=== PATIENT | male | born 1940 | race Hispanic/Latino ===

== ENCOUNTER 2018-08-31 18:25 | Inpatient (IN) | payer MEDICARE ==
[~2018-08-31] VITALS: Ht 165.1 cm; Wt 82.6 kg
[~2018-08-31 18:25] MED LIST: ALENDRONATE SOD70 MG PO; AMERIGEL WOUN28.3 GM; ASPIRIN81 MG PO; BACTRIM DS TAB1 EACH PO; CEFEPIME HCL1 GM; COZAAR25 MG PO; CYCLOSPORINE25 MG PO; FAMOTIDINE20 MG PO; LANTUS 3ML100 UNITS/ SQ; LEVEMIR100 UNIT/1; LOSARTAN POTASS25 MG PO; METOPROLOL SUCC50 MG PO; NIFEDIPINE20 MG PO; NOVOLOG100 UNIT/1; OMEGA-31000 MG; OMEGA-31000 MG PO; PERCOCET 5-3251 EACH PO; PRAVASTATIN SOD10 MG PO; PREDNISONE5 MG PO; RAPAMUNE1 MG PO; SMZ-TMP PO; TORSEMIDE10 MG PO; TUMS300 MG PO; VANCOMYCIN HCL1 GM; VITAMIN D31000 UNI1 PO
[2018-08-31 20:32] LABS: BASOPHILS % 0.2 % (0.0-1.0); EOSINOPHILS % 0.5 % (0.0-6.0); HEMOGLOBIN 14.5 g/dL (14.0-18.0); LYMPHOCYTES # (AUTO) 0.9 (1.0-3.2); LYMPHOCYTES % 10.7 % (18.0-39.1); MEAN CORPUSCULAR HEMOGLOBIN 28.4 pg (28-32); MEAN CORPUSCULAR HGB CONC 34.5 g/dL (31-35); MEAN CORPUSCULAR VOLUME 82.2 fL (81-99); MONOCYTES # (AUTO) 0.8 (0.2-0.8); MONOCYTES % 9.3 % (4.4-11.3); NEUTROPHILS # (AUTO) 6.7 (2.1-6.9); NEUTROPHILS % 78.8 % (38.7-80.0); PLATELET COUNT 174 x10e3/uL (140-360); RED BLOOD COUNT 5.11 x10e6/uL (4.3-5.7); RED CELL DISTRIBUTION WIDTH 12.4 % (11.7-14.4)
[2018-08-31 20:44] LABS: INR 0.91; PROTHROMBIN TIME 13.1 seconds (11.9-14.5)
[2018-08-31 20:45] LABS: PARTIAL THROMBOPLASTIN TIME 39.5 seconds (23.8-35.5)
[2018-08-31 20:53] LABS: ALBUMIN 3.5 g/dL (3.5-5.0); ALBUMIN/GLOBULIN RATIO 0.9 (0.8-2.0); ANION GAP 10.1 mmol/L (8-16); CALCIUM 9.8 mg/dL (8.4-10.2); CREATININE, SERUM 1.61 mg/dL (0.72-1.25); POTASSIUM 4.1 mmol/L (3.5-5.1)
--- NOTE | 2018-08-31 21:20 | NUR ---
PT TOOK SCHEDULED HOME MEDICATIONS WITHOUT PRIOR APPROVAL FROM MD. PT TOOK 15UNITS SC OF LEVEMIR, 1 TAB 100MG METOPROLOL, 1 TAB 20MG PRAVASTATIN, 1 TAB 25MG CYCLOSPORINE, 1 TAB 400MG-80MG BACTRIM. AWARE.
[2018-08-31] MEDS ORDERED: MORPHINE SULFATE 2 MG/ML SYR 1ML IV PRN (21:45)
[2018-08-31] MEDS ORDERED: VANCOMYCIN 500MG/NS 0.9% 100ML 100 ML IV SCH (21:45)
[2018-08-31] MEDS ORDERED: DEXTROSE 50% SYRINGE 50 ML IV PRN (21:45)
[2018-08-31] MEDS ORDERED: SODIUM CHLORIDE FLUSH 10 ML SYR INJ PRN (21:45)
[2018-08-31] MEDS ORDERED: ONDANSETRON HCL INJ 2MG/ML 2ML 2 MG/ML VIAL IV PRN (21:45)
[2018-08-31] MEDS: PIPERACILLIN/TAZO 2.25 GM 50 ML IV SCH (22:45)
--- NOTE | 2018-08-31 23:55 | NUR ---
Patient arrived to the unit from ED via wheelchair. Patient new admit with diagnosis of Cellulitis of right foot and PAD. Patient alert and oriented x3 and speaks mainly Welsh language but understand little bengali language. Patient on bed rest for now. Urinal available at bedside. Patient c/o pain of right foot and will be medicated shortly and to be given IV antibiotic. Call cordero within reach.
[2018-09-01] VITALS (8 sets, daily range): BP systolic 120–156; BP diastolic 57–69
--- NOTE | 2018-09-01 | NUR ---
Telfa placed in between 3rd and 4th right toes then whole right foot wrapped with kerlix.
[2018-09-01] MEDS ORDERED: SODIUM CHLORIDE 0.9% 250ML 250 ML ONE (00:10)
[2018-09-01] MEDS: MORPHINE SULFATE INJ 4 MG/ML INJ 1ML IV PRN ×2 (00:15→11:55)
[2018-09-01 05:44] LABS: BASOPHILS % 0.5 % (0.0-1.0); EOSINOPHILS # (AUTO) 0.1 (0.0-0.4); EOSINOPHILS % 0.8 % (0.0-6.0); HEMATOCRIT 40.1 % (38.2-49.6); HEMOGLOBIN 13.3 g/dL (14.0-18.0); LYMPHOCYTES # (AUTO) 0.9 (1.0-3.2); LYMPHOCYTES % 15.2 % (18.0-39.1); MEAN CORPUSCULAR HEMOGLOBIN 27.9 pg (28-32); MEAN CORPUSCULAR HGB CONC 33.2 g/dL (31-35); MEAN CORPUSCULAR VOLUME 84.2 fL (81-99); MONOCYTES # (AUTO) 0.8 (0.2-0.8); NEUTROPHILS # (AUTO) 4.3 (2.1-6.9); NEUTROPHILS % 70.2 % (38.7-80.0); PLATELET COUNT 165 x10e3/uL (140-360); RED BLOOD COUNT 4.76 x10e6/uL (4.3-5.7); RED CELL DISTRIBUTION WIDTH 12.3 % (11.7-14.4)
[2018-09-01 06:03] LABS: ALBUMIN/GLOBULIN RATIO 0.8 (0.8-2.0); CALCIUM 9.4 mg/dL (8.4-10.2); CREATININE, SERUM 1.3 mg/dL (0.72-1.25)
[2018-09-01] MEDS: PIPERACILLIN/TAZO 2.25 GM 50 ML IV SCH ×3 (06:15→21:43)
--- NOTE | 2018-09-01 06:50 | NUR ---
bedside report received at this time, patient alert and oriented and in no distress. Call cordero within reach and bed in lowest position.
[2018-09-01] MEDS: INSULIN REGULAR, HUMAN 100 UNIT/1 ML 3ML VIAL SQ SCH ×4 (07:30→21:45)
--- NOTE | 2018-09-01 09:15 | NUR ---
dressing applied to right foot per , betadine wet to dry with light dressing. Patient tolerated well Addendum: 09/01/18 at 1115 by Mari Modi RN wrong patient Addendum: 09/01/18 at 1117 by Mari Modi RN *wrong patient amendment is wrong, the note is correct for this entry
--- NOTE | 2018-09-01 09:28 | NUR ---
CM SPOKE TO PATIENT AT BEDSIDE USING LANGUAGE LINE REGARDING IMM LETTER. IMM LETTER GIVEN WITH EXPLANATION BASED ON ANTICIPATED DISCHARGE DATE WITHIN 48 HOURS. ORIGINAL SIGNED BY PATIENT. COPY OF ORIGINAL PLACED IN CHART; COPY OF ORIGINAL DOCUMENT GIVEN TO PATIENT AT BEDSIDE AND PLACED IN CARE TRANSITION FOLDER. CM CONTACT INFORMATION GIVEN TO PATIENT FOR ANY NEEDS OR CONCERNS. PATIENT WITH NO FURTHER QUESTIONS.
--- NOTE | 2018-09-01 09:59 | Consultation ---
DATE OF CONSULTATION: September 01, 2018 REASON FOR CONSULTATION: Pregangrenous changes noted to the third and fourth digits, right foot with a grade 2 ulceration, third toe, left and a grade 3 to 4 ulceration to the fourth digit, right foot. HISTORY OF PRESENT ILLNESS: This is a pleasant 78-year-old male who was seen at the office several weeks ago and his toe started turning worse to a point where it started getting pregangrenous and developed ulcerations to the third digit of the right foot on last visit. Ulcerations were debrided. Secondary to his poor circulatory status and worsening of the third and fourth digits, right foot, it was decided patient to be sent to the emergency room for IV antibiotics and vascular workup to see if anything vascular-hopkins could be done before any definitive surgical procedure will be done. Patient is denying any history of fever, chills, nausea or vomiting. PAST MEDICAL HISTORY: Remarkable for diabetes times 40+ years with insulin-dependent times 20, hypertension, hypercholesterolemia. PAST SURGICAL HISTORY: Remarkable for kidney transplantation, angioplasties to both lower extremities back in 2016 or 2017 according to the patient with a left TMA, prostate surgery, and cataract surgery. ALLERGIES: PATIENT DENIES. CURRENT MEDICATIONS: Include IV Zosyn and vancomycin. SOCIAL HISTORY: Denies any smoking, drinking, or recreational drug use. FAMILY HISTORY: Remarkable for diabetes. REVIEW OF SYSTEMS: CARDIAC: Denies any palpitations or arrhythmias. RESPIRATORY: Denies any shortness of breath, productive cough. GASTROINTESTINAL: Denies any diarrhea or constipation. GENITOURINARY: Denies any hematuria or problems voiding. VITAL SIGNS: Afebrile, pulse rate 78, respiration 19, blood pressure 134/63, O2 saturation 91%. LABS: Showed a white blood cell count of 6.17, hemoglobin 13.3, hematocrit 40.1 with a platelet count of 165,000. Has a blood glucose of 189. PODIATRIC PHYSICAL EXAMINATION: Reveals the following: VASCULATURE: Pedal pulses of both the DP and PT are barely to nonpalpable. Skin temperature between warm and cool to touch. NEUROLOGICAL: Reveals a loss of protective sensation when utilizing Sterling-Cy 5.07 monofilament wire. MUSCULOSKELETAL: Muscle mass is symmetrical. Muscle strength is 4/5 to all muscle groups. DERMATOLOGICAL: Reveals a grade 2 ulceration to the lateral aspect of third digit, left foot measuring 1 cm in diameter. Has a grade 3 ulceration, medial aspect, fourth digit, right foot possibly down to bone with pregangrenous changes noted to the third and fourth digits with the fourth digit being a little worse. The distal aspect of the toe shows some viability. ASSESSMENT: 1. Peripheral arterial disease. 2. Pre-gangrene. 3. Grade 3 ulcer, right; grade 2 ulcer, third digit, left. PLAN: Will continue IV antibiotics. Will start one gauze in between the third and fourth digits with diluted wet-to-dry Betadine. Will await Dr. Rudd evaluation for possible vascular intervention. Continue offloading. Patient understands if not responsive to conservative treatment, will need some type of amputation level to be determined after vascular evaluation is done. Job#: [id number]
--- NOTE | 2018-09-01 11:10 | NUR ---
WOUND CARE CONSULTATION - INITIAL EVALUATION Patient admitted to ER from Home for Cellulitis of Right Foot and 4th Toe. DX: PAD, DFU with Cellulitis of Right Foot and 4th Toe HX: DM type2, HTN, hypercholesterolemia, kidney transplantation, angioplasty , Left TMA, prostate surgery, and cataract surgery LABS: WBC 6.17 HGB13.3 HCT40.1 ALB3.1 - BLE Arterial Doppler Done - Multisegmental Occlusions to below knee bilaterally. - Patient is well known to Dr. Patt Mcmahon following at his office and is on case for inpatient care. - Dr Longo- to evaluate for possible vascular intervention. - Pt on IV ABX. - Non palpable pedal pulses BLE. - Per Salome Goss - will need some type of amputation level to be determined after vascular evaluation is done. IMPRESSION: Ischemic Right Foot 3rd and 4th toes. RECOMMENDATION: Continue treatment plan as prescribed by Gage Gossge: 1. Between the third and fourth digits: - Single gauze with diluted wet-to-dry Betadine then wrap with Light Kerlix and Secure with Tape. 2. Continue offloading RLE. Thank you for consulting with Wound Care. Addendum: 09/01/18 at 1128 by Evangelista Dunn RN Amended: Links added. Addendum: 09/01/18 at 1132 by Evangelista Dunn RN Eduardo score 20 Conservative PUP Active. Visco Mattress in place
[2018-09-01] MEDS: VANCOMYCIN 500MG/NS 0.9% 100ML 100 ML IV SCH (11:55)
[2018-09-01] MEDS: PREDNISONE 5 MG TAB PO SCH (14:30)
[2018-09-01] MEDS: CYCLOSPORINE 25 MG CAP PO SCH (14:30)
--- NOTE | 2018-09-01 16:28 | NUR ---
CASE MANAGEMENT INITIAL ASSESSMENT Maintenance Repairer to bedside to discuss plan of care with patient/family. CM/SW role and care transitions discussed. Anticipated discharge plan discussed along with duration of care. CM/SW discussed patients right to make decisions in care. CM/SW work hours given. Patient lives: W Admit/Transfer: ER Hospital/ER visits since last admit: NONE POA/Emergency contact: DYLAN / @ [phone] Current/Previous Home Health: NONE PCP/Follow-up Care: DR RILEY CRONIN Current/Previous DME: Other Services: [facility] Employment Status: RETIRED Areas of Concerns: NONE Referral Needs: CONTINUED WOUND CARE Education Needs: NONE IMM/CONNELL given and signed (if applicable): GIVEN AT ADMISSION Goal for discharge: DC HOME SAFELY CM/SW left business card at the bedside with contact information. Name and number was also written on the patients whiteboard. Patient verbalized understanding of discussion. CM will follow-up with ongoing discharge and transition of care needs.
--- NOTE | 2018-09-01 17:02 | Diagnostic Imaging Report ---
Examination: Single AP view of the chest. COMPARISON: November 24, 2015 INDICATION: Low oxygen saturation DISCUSSION: Lines/tubes: None. Lungs: Left lung airspace opacity. Pleura: Small left effusion. Heart and mediastinum: Prominent heart size. Bones and soft tissues: No acute bony abnormalities. IMPRESSION: 1. Small left effusion and airspace opacity, likely atelectasis. Signed by: Dr. John Avery M.D. on 09/01/2018 4:58 PM
[2018-09-01] MEDS: OMEGA 3 POLYUNSAT FATTY ACIDS 1000 MG SOFTGEL PO SCH (17:10)
[2018-09-01] MEDS: METOPROLOL SUCCINATE 50 MG TAB XL PO SCH (17:10)
--- NOTE | 2018-09-01 19:00 | NUR ---
report given to worship pastor nurse, patient alert and oriented. Call cordero within reach
--- NOTE | 2018-09-01 19:05 | NUR ---
Patient visited in room during nursing rounds. Patient alert and oriented x3. Estonian speaking only. Family at bedside visiting. Right 4th toe covered with wet-to-dry betadine soaked gauze and wrapped with kerlix and tape (as ordered by Dr. Beltre). Patient denies any pain or discomfort at this time. Call cordero within reach. Will monitor patient closely.
[2018-09-01] MEDS: PRAVASTATIN 20 MG TAB PO SCH (21:43)
[2018-09-02] VITALS (8 sets, daily range): BP systolic 113–142; BP diastolic 57–69
[2018-09-02] MEDS: VANCOMYCIN 500MG/NS 0.9% 100ML 100 ML IV SCH ×3 (00:45→23:56)
[2018-09-02] MEDS: PIPERACILLIN/TAZO 2.25 GM 50 ML IV SCH ×3 (05:47→21:10)
[2018-09-02 06:20] LABS: BASOPHILS % 0.3 % (0.0-1.0); EOSINOPHILS # (AUTO) 0.1 (0.0-0.4); HEMOGLOBIN 12.6 g/dL (14.0-18.0); LYMPHOCYTES # (AUTO) 0.7 (1.0-3.2); LYMPHOCYTES % 9.5 % (18.0-39.1); MEAN CORPUSCULAR HEMOGLOBIN 27.8 pg (28-32); MEAN CORPUSCULAR HGB CONC 33.2 g/dL (31-35); MEAN CORPUSCULAR VOLUME 83.9 fL (81-99); MONOCYTES % 12.6 % (4.4-11.3); NEUTROPHILS # (AUTO) 5.9 (2.1-6.9); NEUTROPHILS % 76.1 % (38.7-80.0); PLATELET COUNT 173 x10e3/uL (140-360); RED BLOOD COUNT 4.53 x10e6/uL (4.3-5.7); RED CELL DISTRIBUTION WIDTH 12.5 % (11.7-14.4)
[2018-09-02 06:39] LABS: ANION GAP 13.1 mmol/L (8-16); CREATININE, SERUM 1.18 mg/dL (0.72-1.25); POTASSIUM 4.1 mmol/L (3.5-5.1)
--- NOTE | 2018-09-02 06:50 | NUR ---
rounded with night custodian nurse, patient aware of change. Call cordero within reach and bed in lowest position
[2018-09-02] MEDS: NIFEDIPINE CR 30 MG TAB PO SCH (08:10)
[2018-09-02] MEDS: FAMOTIDINE 20 MG TAB PO SCH (08:10)
[2018-09-02] MEDS: PREDNISONE 5 MG TAB PO SCH (08:10)
[2018-09-02] MEDS: CALCIUM CARBONATE 500 MG CHEWABLE TABS PO SCH (08:10)
[2018-09-02] MEDS: INSULIN GLARGINE 100 UNITS/ML VIAL SQ SCH (08:10)
[2018-09-02] MEDS: ASPIRIN 81 MG CHEW TAB PO SCH (08:10)
[2018-09-02] MEDS: OMEGA 3 POLYUNSAT FATTY ACIDS 1000 MG SOFTGEL PO SCH ×2 (08:10→17:15)
[2018-09-02] MEDS: CHOLECALCIFEROL 1,000 UNIT TAB PO SCH (08:10)
[2018-09-02] MEDS: CYCLOSPORINE 25 MG CAP PO SCH (08:10)
[2018-09-02] MEDS: INSULIN REGULAR, HUMAN 100 UNIT/1 ML 3ML VIAL SQ SCH ×4 (08:10→22:07)
[2018-09-02] MEDS: METOPROLOL SUCCINATE 50 MG TAB XL PO SCH ×2 (08:10→17:15)
--- NOTE | 2018-09-02 08:26 | History and Physical ---
PRIMARY CARE PHYSICIAN: Jose Alejandro Helm M.D. CONSULTANTS: 1. Bereket Beltre DPM. 2. Jaswinder Bell M.D. CHIEF COMPLAINT: 1. Right foot infected diabetic foot ulcer. 2. History of kidney transplant. HISTORY OF PRESENT ILLNESS: This is a 78-year-old male with extensive chronic medical problem, history of renal transplant, the patient is on immunosuppressant. He also has diabetes type 2 on insulin therapy along with peripheral vascular disease with history of left foot TMA, came in with failed outpatient treatment for right foot infected diabetic ulcer. The patient has pregangrenous of the 3rd and 4th digits of the foot with grade 2 ulceration of the toe on left and grade 3 to 4 ulceration on the 4th toe on right foot. The patient was admitted, IV antibiotics Zosyn and vancomycin initiated. The patient is currently stable. Pain controlled, although the patient has significant diabetic neuropathy. PAST MEDICAL HISTORY: 1. Infected diabetic foot ulcer on the right. 2. Left TMA. 3. History of kidney transplant. 4. Peripheral vascular disease with multiple angioplasties. 5. Prostate surgery. 6. Cataract surgery. 7. Dyslipidemia. 8. Diabetes, on insulin therapy. SOCIAL HISTORY: The patient does not smoke or use alcohol. No recreational drugs. ALLERGIES: NO KNOWN ALLERGIES. MEDICATIONS: Home medication list is extensively reviewed. REVIEW OF SYSTEMS: Otherwise unremarkable. PHYSICAL EXAMINATION: VITAL SIGNS: Temperature is 99, blood pressure 134/63, pulse rate 78, and respirations 22. GENERAL: The patient is not in any distress. He is awake. HEENT: Normocephalic and atraumatic. NECK: Supple grossly. PULMONARY: Clear. CARDIOVASCULAR: Regular rate and rhythm. ABDOMEN: Soft and unremarkable. EXTREMITIES: Left TMA. Right foot infected diabetic foot ulcer with pregangrenous ulcer between the 3rd and the 4th digits. There is also vascular disease as well. Please review Dr. Bereket Beltre's physical examination on the podiatry care. LABORATORY DATA: Sodium is 138, potassium 4, chloride 106, bicarb 23, BUN 21, creatinine 1.3, and glucose 94. WBC is 6.1, hemoglobin 13.3, hematocrit 40.1, and platelets is 165. INR is 0.91. Liver enzyme unremarkable. IMPRESSION: 1. Right infected diabetic foot ulcer between the 3rd and the 4th toe. The patient has high risk for foot amputation due to his peripheral vascular disease and diabetes, on insulin therapy and more importantly with immunosuppressants for his renal transplant. 2. Multiple chronic baseline problems. PLAN: Continue with aggressive antibiotic treatment. Podiatry care with Dr. Bereket Beltre. Vascular care with Dr. Rudd. Home medications, insulin sliding scale coverage obtained. TSH, repeat lab work, glycohemoglobin A1c, and insulin sliding scale coverage. MD YOGI Campbell/MODL /[id number]
[2018-09-02] MEDS ORDERED: CALCIUM CARBONATE PO SCH (09:00)
[2018-09-02] MEDS: NON-FORMULARY MEDICATION (Sirolimus (Rapamune) 1 MG) PO SCH (09:00)
[2018-09-02] MEDS ORDERED: INSULIN GLARGINE SQ SCH (09:00)
[2018-09-02] MEDS ORDERED: NON-FORMULARY MEDICATION (Pravastatin Sodium 10 MG) PO SCH (09:00)
[2018-09-02] MEDS ORDERED: NIFEDIPINE 90 MG PO SCH (09:00)
--- NOTE | 2018-09-02 09:31 | Consultation ---
DATE OF CONSULTATION: 09/01/2018 REASON FOR CONSULTATION: Peripheral vascular disease. HISTORY OF PRESENT ILLNESS: Mr. Sepulveda is a pleasant 78-year-old man with chronic kidney disease, status post orthotopic renal transplantation to the right abdomen and flank, history of diabetes mellitus type 2, dyslipidemia and peripheral vascular disease just to lower extremities, who presents with right 4th toe wound and black discoloration surrounding wound, for which the patient was admitted for further inpatient treatment including IV antibiotics. Vancomycin and Zosyn have been initiated. Diabetes optimization is undergoing. We have been asked to evaluate for possible peripheral vascular disease contributing to these changes to foot. Otoniel denies any chest pain or shortness of breath. He has had previous toe amputations/TMA of left foot and does have some discomfort with ambulation to the cabs. REVIEW OF SYSTEMS: A 12-system review is negative except for as noted above. PAST MEDICAL HISTORY: Significant for diabetes, hypertension, peripheral vascular disease. Denies any prior cardiac history. The patient is status post renal transplant. SOCIAL HISTORY: Denies active smoking, alcohol, or drugs. FAMILY HISTORY: Noncontributory. PHYSICAL EXAMINATION: VITAL SIGNS: Temperature 97.1, heart rate 78, blood pressure 134/63, respiratory rate is 19, and O2 saturation 91%. BMI is 27. GENERAL: In no acute distress. Alert. NECK: No JVD. CHEST: Clear to auscultation. CARDIOVASCULAR: Regular rate and rhythm. Normal S1 and S2. Systolic ejection murmur 1/6. No S3. No S4. ABDOMEN: Soft. EXTREMITIES: No edema. Right 4th toe wound dehisced pedal and posterior tibial pulses bilaterally. MEDICATIONS: Reviewed. 1. Zosyn. 2. Vancomycin. 3. Zofran. 4. Morphine. 5. Normal saline. 6. Insulin. LABORATORY DATA: Studies reviewed. Creatinine is 1.3, bicarbonate 23, potassium 4. Yesterday's creatinine is 1.6. Creatinine is trending down. White blood cell count 6.1, hemoglobin 13.3, platelets 165. INR 0.9. AST 15, ALT 23. ASSESSMENT: 1. Chronic kidney disease, status post kidney transplant with improving creatinine. Unclear if this is related to component of prerenal state on admission versus acute kidney injury, recovering in the setting of chronic kidney disease at baseline. 2. Peripheral vascular disease known from before, presenting with right 4th toe wound and associated infection. 3. Diabetes mellitus. 4. Dyslipidemia. RECOMMENDATIONS: 1. Doppler arterial ultrasound has been ordered and is pending. We will review once available. 2. Continue hydration over the following days and confirm renal stability given history of renal transplant. 3. I have discussed invasive arterial evaluation of possible intervention once renal function is stable. 4. Initiate aspirin and statin, and monitor blood pressure. Thank you for the opportunity to participate in the care of Mr. Sepulveda. We will follow closely with Podiatry and Primary Service. Jaswinder Bell MD AFV/MODL /[id number]
[2018-09-02] MEDS: HYDROCODONE/APAP 5MG-325MG TAB PO PRN (14:05)
--- NOTE | 2018-09-02 14:28 | Diagnostic Imaging Report ---
Exam: Right foot radiographs-3 views Clinical History: Comparison: None. Findings: There is dressing material which overlies the fourth toe, somewhat limiting evaluation of the third through fifth digits. No definite acute fracture or malalignment. Soft tissue edema is present within the fourth toe. There are diffuse atherosclerotic vascular calcifications. There is also soft tissue edema of the first toe. There is deformity of the distal phalanx of the first toe, which may reflect sequela of prior trauma. Impression: Limited evaluation of the fourth toe due to overlying bandage material. Soft tissue edema of the fourth toe without definite acute osseous abnormality. If there is clinical suspicion for fourth toe abnormality. Repeat radiograph after removal of dressing may be obtained. Soft tissue edema of the first toe without evidence of acute fracture. Signed by: Dr. En Smith MD on 09/02/2018 2:25 PM
[2018-09-02] MEDS: OLOPATADINE 5 ML BTL OP SCH ×2 (14:47→15:55)
--- NOTE | 2018-09-02 15:00 | NUR ---
patient leaving the unit via wheelchair to obtain CT of chest. Patient alert and oriented and in no distress.
--- NOTE | 2018-09-02 15:21 | NUR ---
patient returned to floor from CT scan via wheelchair, alert and oriented and in no distress.
--- NOTE | 2018-09-02 16:08 | Diagnostic Imaging Report ---
EXAM: CT Chest without contrast INDICATION: Congestion. COMPARISON: Chest radiograph 09/01/18. TECHNIQUE: Chest was scanned utilizing a multidetector helical scanner from the lung apex through the level of the adrenal glands without administration of IV contrast. Coronal and sagittal reformations were obtained. Routine protocol was performed. Dose modulation, iterative reconstruction, and/or weight based adjustment of the mA/kV was utilized to reduce the radiation dose to as low as reasonably achievable. RADIATION DOSE: Total DLP: 478.4 mGy*cm COMPLICATIONS: None FINDINGS: LINES/ TUBES: None. LUNGS AND AIRWAYS/PLEURA: The central airways are patent. Diffuse mild bronchial wall thickening. There is a small left and a trace right pleural effusion. There are patchy opacities in the left lower lobe. Mild patchy atelectasis within the right lower lobe, lingula, and middle lobe. Ovoid opacity within the left major fissure likely represents a trace amount of loculated pleural effusion. Diffuse opacity limits evaluation for underlying pulmonary nodule. There is a 2 mm solid nodule in the right upper lobe on series 3, image 22 and a 3 mm solid nodule in the right lower lobe on image 55. HEART AND MEDIASTINUM: The thyroid gland is normal. There are numerous calcified mediastinal and hilar lymph nodes. Extensive atherosclerotic calcifications of the thoracic aorta, branch vessels, and coronary arteries. Small pericardial effusion. The esophagus is distended and filled with fluid and air in the mid and distal portions. UPPER ABDOMEN: Limited non-contrast views of the upper abdomen show no abnormality within the partially visualized liver, spleen, or adrenal glands. BONES/SOFT TISSUES: No acute osseous abnormality. No suspicious lytic or blastic lesions. Degenerative changes of the visualized spine. IMPRESSION: Small left pleural effusion with patchy opacities in the left lower lobe which could represent atelectasis or pneumonia in the appropriate clinical context. Trace right pleural effusion. Distended esophagus which contains air and fluid within the mid and distal portions. Correlation for gastroesophageal reflux is advised. The patient may be at risk for aspiration. Tiny pulmonary nodules measuring up to 3 mm are likely benign. In a low risk patient, no further follow-up is recommended. If the patient has a history of smoking or other risk factor for malignancy, an optional chest CT may be considered in 12 months. Sequela of prior granulomatous disease. Signed by: Dr. En Smith MD on 09/02/2018 4:05 PM
--- NOTE | 2018-09-02 19:05 | NUR ---
walking rounds made with night time nanny nurse, patient aware of change and in no distress. Call cordero within reach and bed in lowest position.
--- NOTE | 2018-09-02 20:01 | Progress Note ---
DATE: 09/02/2018 Cardiology Progress Note SUBJECTIVE: No new complaints. Discussed arterial Doppler results and plan of care. OBJECTIVE: VITAL SIGNS: Temperature 96.7, heart rate 65, blood pressure 113/59, respiratory rate 18, O2 saturation 95%. BMI is 27.1. GENERAL: In no acute distress. Alert. NECK: No JVD. CHEST: Clear to auscultation. CARDIOVASCULAR: Regular rate and rhythm. Normal S1 and S2. ABDOMEN: Soft. EXTREMITIES: No edema. Right 4th digit wound. Abnormal pedal pulses. MEDICATIONS: Cardiovascular medications reviewed: 1. Nifedipine 90 mg daily. 2. Pravastatin 10 mg q.h.s. 3. Prednisone 5 mg daily. 4. Aspirin 81 mg daily. 5. Metoprolol succinate 100 mg b.i.d. 6. Zosyn. 7. Vancomycin. STUDIES REVIEWED: Creatinine improving at 1.18, potassium 4.1, bicarbonate 22, hemoglobin 12.6, white blood cells 7.7, platelets 173, INR 0.9. ASSESSMENT: 1. Peripheral vascular disease with abnormal Doppler ultrasound suggesting a [id number] vessel severe disease to both lower extremities, particularly an occluded right posterior tibial and poststenotic waveforms to distal anterior tibial and dorsalis pedis artery. 2. Chronic kidney disease with orthotopic renal transplantation status on immunosuppressive therapy with cyclosporine and prednisone. 3. Diabetes mellitus type 2. 4. Hypertension. 5. Dyslipidemia. RECOMMENDATIONS: For limb salvage, it is advised to proceed with peripheral angiography and possible endovascular revascularization. Indications, alternatives, risks, and benefits have been discussed with the patient. Elevated risk for acute kidney failure/contrast-induced nephropathy is discussed at length with the patient. Hydration and limiting dye will be considered and performed as to the best possible ability. For now, continue current cardiovascular medications. Avoid additional nephrotoxic insults and we will coordinate closely with Nephrology and Podiatry. Thank you, Dr. Driver, for the opportunity to participate in the care of Mr. Sepulveda. Please feel free to call with any questions. Jaswinder Bell MD AFV/MODL /[id number]
--- NOTE | 2018-09-02 20:17 | NUR ---
Received patient from day nurse, patient is alert and oriented, introduced myself to patient and patient made aware of the importance of calling for help, patient verbalized understanding. safety and fall precaution maintained as per hospital protocol:bed in lowest position and locked, needed items beside bed and call cordero placed close to patient, yellow socks on patient, bed alarm set, and room made free of clutter. patient is currently stable will continue to monitor. patient has left toes amputation, difficult walking and at fall risk, patient is currently stable, denies pain now.
[2018-09-02] MEDS: PRAVASTATIN 20 MG TAB PO SCH (21:10)
--- NOTE | 2018-09-02 22:00 | NUR ---
2000: patient rounded : bed in lowest position and locked, needed items beside bed and call cordero placed close to patient, yellow socks on patient, bed alarm is on, room is free of clutter. patient is currently stable will continue to monitor. 2200: patient rounded : bed in lowest position and locked, needed items beside bed and call cordero placed close to patient, yellow socks on patient, bed alarm is on, room is free of clutter. patient is currently stable will continue to monitor
--- NOTE | 2018-09-02 22:36 | Progress Note ---
DATE: 09/02/2018 SUBJECTIVE: The patient was seen at bedside, accompanied by spouse, doing well, having some discomfort to the right lower extremity. Denies any history of fever, chills, nausea, or vomiting. OBJECTIVE: VITAL SIGNS: Afebrile, pulse rate 65, respirations 18, blood pressure 113/59, and O2 saturation 95%. LABORATORY DATA: Labs show a white blood cell count of 7.75, hemoglobin 12.6 with a platelet count of 173. Blood glucose of 217. Hemoglobin A1c of 10.2. His fourth digit of the right lower extremity starting to becoming a little more mottled, cool to touch, has some cellulitis to the dorsal aspect of the right lower extremity with diminished pulses to both DP and PT, barely palpable to nonpalpable. ASSESSMENT: Peripheral arterial disease, pregangrenous changes noted to the fourth digit of the right foot with a grade 4 ulcer on the medial aspect of the right fourth digit with a grade 2-3 ulcer on the lateral aspect of the third digit of the right foot. PLAN: We will continue wet-to-dry Betadine. Continue IV antibiotics. Continue aspirin 81 mg p.o. daily. We will await vascular intervention per Dr. Rudd before any definitive procedure will be done on the foot. X-rays 3-views of the right foot were ordered and Vicodin mg will be given every 4 to 6 hours p.r.n. moderate pain. ANGELA Barrera/DULCE /[id number]
[2018-09-03] VITALS (8 sets, daily range): BP systolic 121–159; BP diastolic 56–74
--- NOTE | 2018-09-03 04:00 | NUR ---
0400: Patient rounded and stable. 0600: patient rounded and stable.
[2018-09-03] MEDS: PIPERACILLIN/TAZO 2.25 GM 50 ML IV SCH ×3 (05:12→21:05)
--- NOTE | 2018-09-03 06:30 | NUR ---
Patient endorsed to next shift for continuity of care.
--- NOTE | 2018-09-03 06:45 | NUR ---
Patient endorsed to next shift for continuity of care.
--- NOTE | 2018-09-03 06:55 | NUR ---
rounded with night nurse nurse, patient aware of change. Patient in no distress, call cordero within reach and bed in lowest position.
[2018-09-03] MEDS: ASPIRIN 81 MG CHEW TAB PO SCH (08:35)
[2018-09-03] MEDS: OMEGA 3 POLYUNSAT FATTY ACIDS 1000 MG SOFTGEL PO SCH ×2 (08:35→18:02)
[2018-09-03] MEDS: FAMOTIDINE 20 MG TAB PO SCH (08:35)
[2018-09-03] MEDS: CHOLECALCIFEROL 1,000 UNIT TAB PO SCH (08:35)
[2018-09-03] MEDS: PREDNISONE 5 MG TAB PO SCH (08:35)
[2018-09-03] MEDS: CALCIUM CARBONATE 500 MG CHEWABLE TABS PO SCH (08:35)
[2018-09-03] MEDS: INSULIN REGULAR, HUMAN 100 UNIT/1 ML 3ML VIAL SQ SCH ×4 (08:35→20:57)
[2018-09-03] MEDS: METOPROLOL SUCCINATE 50 MG TAB XL PO SCH ×2 (08:35→18:02)
[2018-09-03] MEDS: OLOPATADINE 5 ML BTL OP SCH ×2 (08:35→18:01)
[2018-09-03] MEDS: CYCLOSPORINE 25 MG CAP PO SCH (08:35)
[2018-09-03] MEDS: INSULIN GLARGINE 100 UNITS/ML VIAL SQ SCH (08:35)
[2018-09-03] MEDS: NIFEDIPINE CR 30 MG TAB PO SCH (08:35)
[2018-09-03] MEDS: NON-FORMULARY MEDICATION (Sirolimus (Rapamune) 1 MG) PO SCH (09:00)
[2018-09-03] MEDS: HYDROCODONE/APAP 5MG-325MG TAB PO PRN (10:40)
[2018-09-03] MEDS: VANCOMYCIN 500MG/NS 0.9% 100ML 100 ML IV SCH (11:40)
--- NOTE | 2018-09-03 11:54 | Progress Note ---
DATE: September 03, 2018 SUBJECTIVE: Patient seen at bedside accompanied by spouse. Doing well. No signs of distress. Denies any history of fever, chills, nausea, or vomiting. OBJECTIVE VITAL SIGNS: Afebrile, pulse rate 72, respirations 18, blood pressure 127/60, O2 saturation 90%. EXTREMITIES: Has pre-gangrenous changes noted to the 4th digit of right foot. Ulcerations medial aspect 4th digit right foot possibly down to bone with grade 2 ulcer lateral aspect 3rd digit right with also pre-gangrenous changes, but not as bad as the 4th digit. Pedal pulses are very diminished. The dorsal cellulitis to the right foot seems to be resolving. LABS: Noted. White blood cell count 7.75. ASSESSMENT: Peripheral artery disease with pre-gangrene of 4th digit right, grade 2 and 3 ulcerations 3rd and 4th digit right foot. PLAN: Continue diluted wet-to-dry Betadine. Dr. Rudd will be possibly performing angioplasty with arteriogram tomorrow. We will await results before any definitive surgical procedure will be done. Job#: [id number] PENNY
--- NOTE | 2018-09-03 15:36 | NUR ---
per patient request only given 9 units of insulin at this time for blood sugar of 308, patient states our sliding scale is higher than what he uses at home and is refusing our sliding scale at this time.
--- NOTE | 2018-09-03 19:00 | NUR ---
report given to fast food shift supervisor nurse, patient aware of change. Call cordero within reach and bed in lowest position
--- NOTE | 2018-09-03 19:20 | NUR ---
Received patient from day nurse, patient is alert and oriented, introduced myself to patient and patient made aware of the importance of calling for help, patient verbalized understanding. safety and fall precaution maintained as per hospital protocol:bed in lowest position and locked, needed items beside bed and call cordero placed close to patient, yellow socks on patient, bed alarm set, and room made free of clutter. patient is currently stable will continue to monitor. Dr. Rudd was here, communicated in Guamanian and patient consented for procedure listed for consent. patient is currently npo from midnight.
[2018-09-03] MEDS: PRAVASTATIN 20 MG TAB PO SCH (21:05)
[2018-09-03] MEDS: SODIUM CHLORIDE 0.9% 1000ML 1,000 ML IV SCH (21:05)
[2018-09-04] VITALS (30 sets, daily range): BP systolic 105–149; BP diastolic 58–100
[2018-09-04] MEDS: VANCOMYCIN 500MG/NS 0.9% 100ML 100 ML IV SCH ×2 (00:26→12:00)
[2018-09-04] MEDS: PIPERACILLIN/TAZO 2.25 GM 50 ML IV SCH ×3 (05:31→21:34)
[2018-09-04 05:57] LABS: BASOPHILS % 0.5 % (0.0-1.0); EOSINOPHILS # (AUTO) 0.1 (0.0-0.4); EOSINOPHILS % 1.7 % (0.0-6.0); HEMATOCRIT 36.2 % (38.2-49.6); HEMOGLOBIN 11.8 g/dL (14.0-18.0); LYMPHOCYTES # (AUTO) 0.8 (1.0-3.2); LYMPHOCYTES % 12.4 % (18.0-39.1); MEAN CORPUSCULAR HEMOGLOBIN 28.4 pg (28-32); MEAN CORPUSCULAR HGB CONC 32.6 g/dL (31-35); MONOCYTES # (AUTO) 0.9 (0.2-0.8); MONOCYTES % 12.8 % (4.4-11.3); NEUTROPHILS # (AUTO) 4.8 (2.1-6.9); NEUTROPHILS % 72.1 % (38.7-80.0); PLATELET COUNT 178 x10e3/uL (140-360); RED BLOOD COUNT 4.16 x10e6/uL (4.3-5.7); RED CELL DISTRIBUTION WIDTH 12.3 % (11.7-14.4)
--- NOTE | 2018-09-04 06:08 | NUR ---
Report given to day nurse(Luz Elena) for continuity of care.
[2018-09-04 06:14] LABS: INR 0.95; PROTHROMBIN TIME 13.5 seconds (11.9-14.5)
[2018-09-04 06:15] LABS: PARTIAL THROMBOPLASTIN TIME 38.3 seconds (23.8-35.5)
[2018-09-04 06:19] LABS: ANION GAP 10.7 mmol/L (8-16); BLOOD UREA NITROGEN 12 mg/dL (7-26); BUN/CREATININE RATIO 14 (6-25); CALCIUM 8.5 mg/dL (8.4-10.2); CARBON DIOXIDE 21 mmol/L (22-29); CHLORIDE 108 mmol/L (98-107); CREATININE, SERUM 0.87 mg/dL (0.72-1.25); EST GLOMERULAR FILTRATION RATE > 60 ML/MIN (60-); GLUCOSE 135 mg/dL (74-118); POTASSIUM 3.7 mmol/L (3.5-5.1); SODIUM 136 mmol/L (136-145)
[2018-09-04] MEDS: SODIUM CHLORIDE 0.9% 1000ML 1,000 ML IV SCH ×2 (06:27→18:34)
--- NOTE | 2018-09-04 07:22 | Progress Note ---
DATE: 09/03/2018 SUBJECTIVE: No new complaints. Discussed plans for angiography and possible endovascular revascularization as early next week, as staff schedule allows. OBJECTIVE: VITAL SIGNS: Temperature 98 degrees, heart rate 75, blood pressure 159/74, respiratory rate 20, and O2 saturation 97%. GENERAL: No acute distress. Alert. NECK: No JVD. CHEST: Clear to auscultation. CARDIOVASCULAR: Regular rate and rhythm. Normal S1 and S2. ABDOMEN: Soft. EXTREMITIES: No edema. Right 4th toe wounds. MEDICATIONS: Cardiovascular medications reviewed: 1. Nifedipine 90 mg daily. 2. Pravastatin 10 mg at bedtime. 3. Aspirin 81 mg daily. 4. Metoprolol 100 mg b.i.d. 5. Zosyn. 6. Vancomycin. STUDIES REVIEWED: Creatinine 1.18 and potassium 4.1. Hemoglobin 12.6, platelets 173, and white blood cell 7.7. ASSESSMENT: 1. Peripheral vascular disease with right 4th toe wound. 2. Diabetes mellitus. 3. Hypertension. 4. Chronic kidney disease, status post renal transplant. RECOMMENDATIONS: 1. Angiography and possible endovascular revascularization. 2. Continue rest of cardiovascular medications. MD MIRELLA Bates/DULCE /[id number]
[2018-09-04] MEDS: INSULIN REGULAR, HUMAN 100 UNIT/1 ML 3ML VIAL SQ SCH ×4 (07:30→21:36)
[2018-09-04] MEDS: OMEGA 3 POLYUNSAT FATTY ACIDS 1000 MG SOFTGEL PO SCH ×2 (09:00→18:35)
[2018-09-04] MEDS: NIFEDIPINE CR 30 MG TAB PO SCH (09:00)
[2018-09-04] MEDS: CYCLOSPORINE 25 MG CAP PO SCH (09:00)
[2018-09-04] MEDS: INSULIN GLARGINE 100 UNITS/ML VIAL SQ SCH (09:00)
[2018-09-04] MEDS: OLOPATADINE 5 ML BTL OP SCH ×2 (09:00→18:35)
[2018-09-04] MEDS: FAMOTIDINE 20 MG TAB PO SCH (09:00)
[2018-09-04] MEDS: ASPIRIN 81 MG CHEW TAB PO SCH ×2 (09:00)
[2018-09-04] MEDS: NON-FORMULARY MEDICATION (Sirolimus (Rapamune) 1 MG) PO SCH (09:00)
[2018-09-04] MEDS: PREDNISONE 5 MG TAB PO SCH (09:00)
[2018-09-04] MEDS: METOPROLOL SUCCINATE 50 MG TAB XL PO SCH ×2 (09:00→18:35)
[2018-09-04] MEDS ORDERED: IOPAMIDOL 300MG/ML 100 ML INFUS..BTL IV ONE ×2 (09:14→11:46)
[2018-09-04] MEDS ORDERED: LIDOCAINE HCL 1% LOCAL INJ 20 ML VIAL ONE (09:14)
[2018-09-04] MEDS ORDERED: HEPARIN SOD/SOD CHLORIDE 2,000 ML ONE (09:14)
[2018-09-04] MEDS ORDERED: SODIUM CHLORIDE 0.9% 1000ML 1,000 ML ONE ×2 (09:14→11:26)
--- NOTE | 2018-09-04 09:15 | NUR ---
Pt received resting in bed. Alert and oriented x4. Oriented to staff and surroundings, encouraged to press call cordero if help needed. Pt for NPO for tag and label cutter. Emotional support given. Fall precautions maintained. Will monitor
--- NOTE | 2018-09-04 09:35 | NUR ---
Pt left for Peripheral angiogram
--- NOTE | 2018-09-04 09:55 | NUR ---
CM SPOKE TO PATIENT AND PATIENT AT BEDSIDE USING LANGUAGE LINE REGARDING IMM LETTER. IMM LETTER GIVEN WITH EXPLANATION BASED ON ANTICIPATED DISCHARGE DATE WITHIN 48 HOURS. ORIGINAL SIGNED BY PATIENT. COPY OF ORIGINAL PLACED IN CHART; COPY OF ORIGINAL DOCUMENT GIVEN TO PATIENT AT BEDSIDE AND PLACED IN CARE TRANSITION FOLDER. CM CONTACT INFORMATION GIVEN TO PATIENT FOR ANY NEEDS OR CONCERNS. PATIENT WITH NO FURTHER QUESTIONS.
[2018-09-04] MEDS ORDERED: MIDAZOLAM HCL 2 MG/2 ML VIAL ONE (10:18)
[2018-09-04] MEDS ORDERED: FENTANYL CITRATE/PF 100MCG/2 ML INJ ONE (10:19)
[2018-09-04] MEDS ORDERED: HEPARIN SOD (PORCINE) 1000 UNIT/ML 30ML ONE (11:16)
[2018-09-04] MEDS ORDERED: VERAPAMIL HCL 2.5 MG/ML 2 ML VIAL ONE (11:26)
[2018-09-04] MEDS ORDERED: NITROGLYCERIN/D5W 200 MCG/ML 250 ML ONE (11:26)
[2018-09-04] MEDS ORDERED: CLOPIDOGREL BISULFATE 75 MG TAB ONE (11:54)
[2018-09-04] MEDS ORDERED: ASPIRIN 325 MG TAB ONE (11:54)
--- NOTE | 2018-09-04 12:04 | NUR ---
1204PM Received report from Hardy Owusu Periph angio with CSI performed Dr Rudd. Last ACT 314 to be rechecked in 1hr. Rt Foot with left groin sheath in place no bleeding or hematoma. Rt foot dressing removed to ck pulses 2+DP/PD bilateral doppler. Redressed with Kerlix and light Coban wrap. Back to baseline orientation PEERLA Family at bedside. Alondra and Son Arpit . Respirations regular and sat 98% on room air. Abdomen soft and non tender denies necessity to defecate or urinate. Rt Arm iv w/o s/s infiltration, infusing 100cchr via controller. No co pain Warm blankets applied for comfort. tho/hardy
--- NOTE | 2018-09-04 13:00 | NUR ---
ACT 266 DR Saturnino DAVE Podiotry to see pt in senior cytogenetics laboratory director recovery stable pain 10/18 assessing for po pain rx Left sheath remain intact w/o bleeding or hematoma ds/rn
--- NOTE | 2018-09-04 13:00 | NUR ---
ACT long 1300pm ACT/Istat 266 no pull,sheath intact ,no bleeding or hematoma 1400pm ACT/istat 209 no pull, sheath intact, no bleeding or hematoma 1500pm ACT/istat 192 no pull till 180 or below ,no bleeding or hematoma 1530 BS- 107 tolerating po intake oj and pudding djs/rn
--- NOTE | 2018-09-04 13:30 | NUR ---
1330 C/O rt foot "numb-like pain" medicated with [place]undidge 5/325 tolerating po intake ok. Family remains at bedside HOB down ,bed low position and call light at bedside .Side rails up and informed to call for assistance. ds/rn
[2018-09-04] MEDS ORDERED: HYDROCODONE/APAP 5MG-325MG TAB ONE (13:32)
[2018-09-04] MEDS: HYDROCODONE/APAP 5MG-325MG TAB PO PRN ×2 (13:45→18:48)
--- NOTE | 2018-09-04 15:30 | NUR ---
bs 107 tolerating po intake
--- NOTE | 2018-09-04 16:00 | NUR ---
1600 ACT 176 ok to pull informed Tyson Cath technologist and handoff to Walter Rn veterinarian laboratory animal care nurse Stable vs and ekg Sheath site w/o s/s bleding or hematoma Family remains at bedside
--- NOTE | 2018-09-04 16:25 | NUR ---
1625pm structural technician here held manual pressure x20min. stasis achieved at 1645 Site w/o hematoma or bleeding Erma patch in place PP present x4 . 1625 130/64-68-11 98% room air 1630 131/63-68 11 98% RA 1635 116/69 69 12 98% RA 1640 130/67 69 11-99% RA 1645 118/71 69 12 98% RA stasis achieved ds/rn
--- NOTE | 2018-09-04 17:29 | NUR ---
Pt returned from company laborer
--- NOTE | 2018-09-04 17:50 | Progress Note ---
DATE: 09/04/2018 SUBJECTIVE: No complaints. OBJECTIVE: VITAL SIGNS: Temperature 98.3, heart rate 70, respiratory rate 18, blood pressure 137/65, and O2 saturation 97% on room air. GENERAL: In no acute distress, alert. NECK: No JVD. CHEST: Clear to auscultation. CARDIOVASCULAR: Regular rate and rhythm. Normal S1, S2. ABDOMEN: Soft. EXTREMITIES: No edema. The right fourth toe with old wound. Abnormal pedal pulses. MEDICATIONS: Cardiovascular medications are reviewed. 1. Zosyn and vancomycin antibiotics. 2. Metoprolol succinate 100 mg every 12 hours. 3. Nifedipine extended release 90 mg daily. 4. Prednisone 5 mg daily. 5. Aspirin 81 mg daily. 6. Cyclosporine 25 mg daily. 7. Sirolimus 1 mg daily. 8. Aspirin 81 mg daily. LABORATORY DATA: White blood cells 6.6, hemoglobin 11.8, and platelets are 178. INR 0.9. Sodium 136, potassium 3.7, chloride 108, bicarbonate 21, BUN 12, creatinine 0.8, glucose 132, and calcium 8.5. Blood cultures negative x2 at 72 hours. ASSESSMENT: 1. Peripheral vascular disease with right fourth toe wound. 2. Diabetes mellitus. 3. Hypertension. 4. Chronic kidney disease, status post renal transplantation, on immunosuppressive therapy. RECOMMENDATIONS: Angiography and possible endovascular revascularization planned for today. We will proceed with adequate preprocedure hydration and limiting diet to least amount necessary. Creatinine today is 0.8. Further recommendations to follow. MD MIRELLA Bates/DULCE /[id number]
[2018-09-04] MEDS: CALCIUM CARBONATE 500 MG CHEWABLE TABS PO SCH (18:34)
[2018-09-04] MEDS: CHOLECALCIFEROL 1,000 UNIT TAB PO SCH (18:34)
--- NOTE | 2018-09-04 19:10 | NUR ---
Report received from morning nurse. Pt alert and orient to name. Pt lying in bed HOB 30 degrees. Denies pain at this time. No acute distress noted. Call cordero within reach. Will continue to monitor.
--- NOTE | 2018-09-04 20:20 | Progress Note ---
DATE: 09/04/2018 Progress Report SUBJECTIVE: The patient had recovery from atherectomy performed to the right lower extremity per Dr. Rudd. The patient doing okay. Having some discomfort to the right lower extremity. Denies any history of fever, chills, nausea, or vomiting. OBJECTIVE: VITAL SIGNS: Afebrile, pulse rate 70, respirations 18, blood pressure 137/65, and O2 saturation 95%. SKIN: Temperature is warm to touch. Pregangrenous changes noted to the 4th digit and 3rd digit to the right lower extremity. ASSESSMENT: Peripheral arterial disease with gangrene, multiple ulcerations to the 3rd and 4th digits with diabetic neuropathy status post atherectomy. PLAN: We will continue now to observe and let the foot demarcate before any definitive procedure is performed. Continue IV antibiotics, appropriate wound care, and offloading. ANGELA Barrera/DULCE /[id number]
[2018-09-04] MEDS: PRAVASTATIN 20 MG TAB PO SCH (21:34)
[2018-09-05] VITALS (8 sets, daily range): BP systolic 132–163; BP diastolic 63–75
[2018-09-05] MEDS: VANCOMYCIN 500MG/NS 0.9% 100ML 100 ML IV SCH ×3 (00:14→23:58)
--- NOTE | 2018-09-05 01:42 | Operative Report ---
DATE OF PROCEDURE: 09/04/2018 SURGEON: Jaswinder Bell MD PROCEDURE INDICATION: Peripheral vascular disease with fourth right toe wound. The patient is status post renal transplant with known peripheral vascular disease. This is a limb salvage procedure. PROCEDURE COMPLICATIONS: None. ESTIMATED BLOOD LOSS: Less than 15 mL. PROCEDURES PERFORMED: 1. Abdominal aortogram. 2. Selective lower extremity angiography, bilateral lower extremities. 3. Third-order catheter placement from left common femoral artery to right SFA. 4. Additional third-order catheter placement from left common femoral artery to right popliteal artery. 5. Additional third-order catheter placement from left common artery to right anterior tibial artery. 6. Right anterior tibial CSI atherectomy with a 1.25 kapil at 30,000 rpm. 7. Right anterior tibial SPLASH LINE OPERATOR with a 2.5 x 220 Ultraverse balloon. 8. Manual pressure hemostasis to the left common femoral artery. PROCEDURE SUMMARY: After consent was obtained, the patient was prepped and draped in a sterile fashion and the left femoral site was locally infiltrated with 2% lidocaine. With micropuncture kit, the left common femoral artery was accessed and a 6- Kiswahili short sheath was placed. An Omni Flush catheter was positioned in the distal descending abdominal aorta and selective angiography revealed patent renal arteries and orthotopic transplanted kidney with artery feeding via the right external iliac artery. Additional angiography was then performed afterwards to each of bilateral lower extremities with catheter positioned in the right SFA and then thereafter right popliteal artery for digital subtraction angiography and additional angiography of selective right anterior tibial artery to attempt visualization of distal outflow of the right posterior tibial artery via collaterals, which was confirmed to be minimal/poor to right posterior tibial. Less than 30% stenosis was noted in the infrarenal abdominal aorta and iliac vessels, common femoral and profunda femoris bilaterally. The right SFA had tandem lesions of 30%. The right popliteal had 40% to 50% focal lesions. The right anterior tibial artery had 95% proximal and 70% mid stenosis. The right dorsalis pedis artery was small in caliber with 50% to 60% mid stenosis. Overall, small vessel disease noted in particularly the distal arteries. Posterior vein showed an area of 95% and 70% tandem lesions of the right anterior tibial artery, were treated successfully with CSI atherectomy and SPLASH LINE OPERATOR with residual less than 30% stenosis and FIONA-3 flow, and no flow-limiting dissections or perforations. The right TP trunk and peroneal artery were patent. The right posterior tibial arteries were 100% occluded throughout with poor outflow. The left SFA has 50% area of stenosis in the midportion. The left popliteal artery had less than 30% stenosis. The left anterior tibial artery is now well visualized, but seems patent in the proximal segment. The right TP trunk seemed patent, so did the peroneal artery. The left TP trunk seemed patent and the left peroneal artery was patent. The left posterior tibial artery was 100% occluded throughout. Again, the left anterior tibial artery seemed patent in the proximal segment, but now well visualized distally. INTERVENTION: After advancement of a seeking catheter into the distal right anterior tibial artery and confirmation of distal anatomy, including hassles of outflow of the right posterior tibial artery from collaterals, it was decided to proceed with the right anterior tibial artery revascularization. A Telestreamer wire was advanced in exchange and positioned into the distal right anterior tibial and CSI atherectomy with a 1.25 kapil at 30,000 rpm was performed across the areas of stenosis in the right anterior tibial, proximal to mid. This was followed by 2.5 x 220 Ultraverse balloon inflated to 6 atmospheres. Final angiography reveals less than 30% stenosis, FIONA-3 flow, no flow-limiting dissections and no perforation across the right anterior tibial artery with the linear flow re-established to the foot to angiosome distribution that was affected. CONCLUSION: Right anterior tibial CSI atherectomy and SPLASH LINE OPERATOR. RECOMMENDATIONS: 1. Dual anti-platelet therapy. 2. Monitor renal function. 3. Continue hydration. 4. Manual pressure hemostasis to the left femoral site. MD MIRELLA Bates/SANTOL /[id number] LM
[2018-09-05] MEDS: SODIUM CHLORIDE 0.9% 1000ML 1,000 ML IV SCH ×3 (05:15→23:27)
[2018-09-05] MEDS: PIPERACILLIN/TAZO 2.25 GM 50 ML IV SCH ×3 (05:15→21:11)
[2018-09-05] MEDS: INSULIN REGULAR, HUMAN 100 UNIT/1 ML 3ML VIAL SQ SCH ×4 (07:30→21:14)
[2018-09-05] MEDS: OMEGA 3 POLYUNSAT FATTY ACIDS 1000 MG SOFTGEL PO SCH ×2 (08:44→16:19)
[2018-09-05] MEDS: NON-FORMULARY MEDICATION (Sirolimus (Rapamune) 1 MG) PO SCH (08:44)
[2018-09-05] MEDS: OLOPATADINE 5 ML BTL OP SCH ×2 (08:44→16:19)
[2018-09-05] MEDS: FAMOTIDINE 20 MG TAB PO SCH (08:44)
[2018-09-05] MEDS: PREDNISONE 5 MG TAB PO SCH (08:44)
[2018-09-05] MEDS: ASPIRIN 81 MG CHEW TAB PO SCH (08:44)
[2018-09-05] MEDS: CYCLOSPORINE 25 MG CAP PO SCH ×2 (08:44→16:19)
[2018-09-05] MEDS: CALCIUM CARBONATE 500 MG CHEWABLE TABS PO SCH (08:45)
[2018-09-05] MEDS: CHOLECALCIFEROL 1,000 UNIT TAB PO SCH (08:45)
[2018-09-05] MEDS: NIFEDIPINE CR 30 MG TAB PO SCH (08:45)
[2018-09-05] MEDS: METOPROLOL SUCCINATE 50 MG TAB XL PO SCH ×2 (08:45→16:19)
--- NOTE | 2018-09-05 08:45 | NUR ---
Pt received resting in bed. Right foot dressing (fourth toe blackened) intact. All meds given as ordered. Saline lock occluded. Will follow up
[2018-09-05] MEDS: INSULIN GLARGINE 100 UNITS/ML VIAL SQ SCH (08:48)
[2018-09-05] MEDS: MORPHINE SULFATE INJ 4 MG/ML INJ 1ML IV PRN (12:23)
--- NOTE | 2018-09-05 13:20 | NUR ---
Saline lock #20 inserted into right wrist. Emotional support given. Dressing to right foot done as per Dr. Beltre's order. Call cordero within reach. Will monitor
--- NOTE | 2018-09-05 16:46 | Progress Note ---
DATE: 09/05/2018 SUBJECTIVE: The patient at bedside, doing fairly well. Denies any history of fever, chills, nausea, or vomiting. OBJECTIVE: VITAL SIGNS: Afebrile. Vital signs are stable. EXTREMITIES: He has gangrenous changes noted to the 4th digit of right foot distally. From the proximal interphalangeal joint distally, he has some discoloration to the 3rd digit of the right foot. SKIN: Temperature is warm to touch. Decreased cellulitis to the dorsal aspect of the right foot. ASSESSMENT: Gangrene with pregangrenous changes noted to the 3rd digit of right foot. PLAN: We will continue to let the foot demarcate before any definitive procedure is performed. Continue local wound care with IV antibiotics. ANGELA Barerra/DULCE /[id number]
[2018-09-05] MEDS: CLOPIDOGREL BISULFATE 75 MG TAB PO SCH (17:56)
--- NOTE | 2018-09-05 18:51 | Consultation ---
DATE OF CONSULTATION: 09/05/2018 HISTORY OF PRESENT ILLNESS: Mr. Otoniel Sepulveda has been admitted with cellulitis and peripheral vascular disease of his foot, status post angiogram yesterday. Currently awake, alert, lying supine, in no apparent distress. Denies fevers, chills, chest pain, shortness of breath. He has a history of kidney transplant and currently on Rapamune 1 mg once a day and cyclosporine 50 mg in the morning and 25 mg in the evening. He is also on prednisone 5 mg once a day. ALLERGIES: NO APPARENT DRUG ALLERGIES. SOCIAL HISTORY: Does not smoke or drink. FAMILY HISTORY: Significant for diabetes. CURRENT MEDICATIONS: The immunosuppressive medications as above. He takes his Rapamune from home. Also receiving normal saline at 100 mL/hour. Aspirin 81 mg daily, calcium carbonate 1000 mg daily. Plavix, he got one time dose. He is on vitamin D3, 5000 units daily. He is on metoprolol 100 mg p.o. b.i.d., insulin, nifedipine 90 mg p.o. daily, pravastatin 10 mg at bedtime. PHYSICAL EXAMINATION: GENERAL: Awake, alert, lying supine, in no apparent distress. VITAL SIGNS: Blood pressure 159/72, pulse rate 80, afebrile, respiratory rate 17. HEAD AND NECK: Cornea clear. Oral mucosa moist. Neck veins flat. LUNGS: Relatively clear. No rales or rhonchi. HEART: S1 and S2 audible. ABDOMEN: Otherwise soft and nontender. EXTREMITIES: Lower extremity, no edema. Dressing noted. LABORATORY DATA: Sodium 136, potassium 3.7, bicarbonate 21, creatinine 0.18. Hemoglobin 11.8. ASSESSMENT/PLAN: Underlying hypertension, cadaveric renal transplant on immunosuppressive medication, volume status stable, status post angiogram. Continue with IV fluid. Transplant medication reviewed with RN and adjusted. He was only getting 25 mg daily of cyclosporine. I have resumed his home doses, which is 50 mg in the morning and 25 mg in the evening. Underlying diabetes, multiple comorbidities, peripheral vascular disease, cellulitis of the foot, diabetes with diabetic neuropathy. Please see orders. MD OLIVIA Rich/MODAndrew /[id number]
--- NOTE | 2018-09-05 19:05 | NUR ---
Report received from morning nurse. Pt alert and orient to name. Pt lying in bed HOB 45 degrees. Denies pain at this time. No acute distress noted. Call cordero within reach. Will continue to monitor.
[2018-09-05] MEDS: PRAVASTATIN 20 MG TAB PO SCH (21:11)
--- NOTE | 2018-09-05 22:09 | Progress Note ---
DATE: 09/05/2018 SUBJECTIVE: No complaints today. OBJECTIVE: VITAL SIGNS: Temperature 97.5, heart rate 66, respiratory rate 18, blood pressure 146/72 and O2 saturation 96%. BMI is 27. GENERAL: No acute distress. Alert. NECK: No JVD. CHEST: Clear to auscultation. CARDIOVASCULAR: Regular rate and rhythm. Normal S1, S2. ABDOMEN: Soft. EXTREMITIES: Trace edema, warm distal extremities. Right 4th toe wound. MEDICATIONS: Cardiovascular medications reviewed. Zosyn, vancomycin, aspirin 81 mg daily, pravastatin 10 mg at bedtime, clopidogrel 75 mg daily, cyclosporine 25 mg daily, prednisone 5 mg daily, metoprolol succinate 100 mg twice a day, cyclosporine 50 mg daily and nifedipine 90 mg daily. LABORATORY DATA: Studies reviewed. Sodium 136, potassium 3.7, chloride 108, bicarbonate 21, BUN 12, creatinine 0.87, glucose 135, white blood cells 6.6, hemoglobin 11.8, platelets are 178. INR is 0.9. PT 13.5, PTT 28.3. AST 15, ALT 23, alkaline phosphatase 112, total bilirubin 0.4. ASSESSMENT: 1. Coronary artery disease, status post right anterior tibial CSI atherectomy and BANK PRESIDENT. 2. Diabetes mellitus. 3. Hypertension. 4. Chronic kidney disease, status post renal transplant, on immunosuppressive therapy. 5. Limb salvage procedure. RECOMMENDATIONS: 1. Continue Podiatry care. 2. Volume management deferred to Nephrology's expertise. 3. Immunosuppression per Nephrology. 4. Antibiotics. 5. Continue antihypertensives, antiplatelets and statin therapy. MD MIRELLA Bates/DULCE /[id number] MTDD
[2018-09-06] VITALS (7 sets, daily range): BP systolic 140–170; BP diastolic 64–76
[2018-09-06] MEDS: PIPERACILLIN/TAZO 2.25 GM 50 ML IV SCH ×3 (05:29→22:08)
[2018-09-06 06:38] LABS: BASOPHILS % 0.5 % (0.0-1.0); EOSINOPHILS # (AUTO) 0.1 (0.0-0.4); EOSINOPHILS % 1.3 % (0.0-6.0); HEMATOCRIT 33.7 % (38.2-49.6); HEMOGLOBIN 11.1 g/dL (14.0-18.0); LYMPHOCYTES # (AUTO) 0.8 (1.0-3.2); LYMPHOCYTES % 13.8 % (18.0-39.1); MEAN CORPUSCULAR HEMOGLOBIN 28.1 pg (28-32); MEAN CORPUSCULAR HGB CONC 32.9 g/dL (31-35); MEAN CORPUSCULAR VOLUME 85.3 fL (81-99); MONOCYTES % 15.6 % (4.4-11.3); NEUTROPHILS # (AUTO) 4.2 (2.1-6.9); NEUTROPHILS % 68.3 % (38.7-80.0); PLATELET COUNT 221 x10e3/uL (140-360); RED BLOOD COUNT 3.95 x10e6/uL (4.3-5.7); RED CELL DISTRIBUTION WIDTH 12.5 % (11.7-14.4)
--- NOTE | 2018-09-06 07:00 | NUR ---
SHIFT REPORT GIVEN BY NIGHT RN WHILE ROUNDING BS. PT DENIES NEEDS AT THIS TIME.
[2018-09-06 07:04] LABS: ALANINE AMINOTRANSFERASE 10 IU/L (0-55); ALBUMIN 2.5 g/dL (3.5-5.0); ALBUMIN/GLOBULIN RATIO 0.7 (0.8-2.0); ALKALINE PHOSPHATASE 81 IU/L (40-150); ANION GAP 8.8 mmol/L (8-16); BLOOD UREA NITROGEN 10 mg/dL (7-26); BUN/CREATININE RATIO 11 (6-25); CALCIUM 8.3 mg/dL (8.4-10.2); CARBON DIOXIDE 22 mmol/L (22-29); CHLORIDE 112 mmol/L (98-107); CREATININE, SERUM 0.91 mg/dL (0.72-1.25); EST GLOMERULAR FILTRATION RATE > 60 ML/MIN (60-); GLUCOSE 112 mg/dL (74-118); POTASSIUM 3.8 mmol/L (3.5-5.1); SODIUM 139 mmol/L (136-145)
[2018-09-06] MEDS: INSULIN REGULAR, HUMAN 100 UNIT/1 ML 3ML VIAL SQ SCH ×4 (07:30→21:00)
[2018-09-06] MEDS: NON-FORMULARY MEDICATION (Sirolimus (Rapamune) 1 MG) PO SCH (09:00)
[2018-09-06] MEDS: FAMOTIDINE 20 MG TAB PO SCH (09:01)
[2018-09-06] MEDS: OLOPATADINE 5 ML BTL OP SCH ×2 (09:01→17:37)
[2018-09-06] MEDS: ASPIRIN 81 MG CHEW TAB PO SCH (09:01)
[2018-09-06] MEDS: PREDNISONE 5 MG TAB PO SCH (09:01)
[2018-09-06] MEDS: OMEGA 3 POLYUNSAT FATTY ACIDS 1000 MG SOFTGEL PO SCH ×2 (09:01→17:38)
[2018-09-06] MEDS: CLOPIDOGREL BISULFATE 75 MG TAB PO SCH (09:01)
[2018-09-06] MEDS: CYCLOSPORINE 25 MG CAP PO SCH ×2 (09:01→17:37)
[2018-09-06] MEDS: CHOLECALCIFEROL 1,000 UNIT TAB PO SCH (09:02)
[2018-09-06] MEDS: METOPROLOL SUCCINATE 50 MG TAB XL PO SCH ×2 (09:02→17:39)
[2018-09-06] MEDS: CALCIUM CARBONATE 500 MG CHEWABLE TABS PO SCH (09:02)
[2018-09-06] MEDS: NIFEDIPINE CR 30 MG TAB PO SCH (09:02)
[2018-09-06] MEDS: SODIUM CHLORIDE 0.9% 1000ML 1,000 ML IV SCH ×2 (09:03→17:38)
[2018-09-06] MEDS: INSULIN GLARGINE 100 UNITS/ML VIAL SQ SCH (09:03)
[2018-09-06] MEDS: VANCOMYCIN 500MG/NS 0.9% 100ML 100 ML IV SCH (12:14)
--- NOTE | 2018-09-06 16:45 | NUR ---
Nutrition Screen Note RD Recommendation for Physician: -Continue ADA diet as ordered Plan of Care: RD following, monitoring for tolerance and adequacy Nutrition reason for involvement: LOS Primary Diagnose(s): Coronary artery disease, status post right anterior tibial CSI atherectomy and DYE CAN OPERATOR. PMH: CAD, DM, HTN, CKD Ht: 65in Wt: 163.38lb BMI: 27.2kg/m2 IBW: 136lb RD Assessment: (09/06) Chart reviewed. Labs and meds reviewed. 78yo M, who came in with failed outpatient treatment for right foot infected diabetic ulcer. Visited pt in room who denied significant wt loss, denied decrease in appetite DYE CAN OPERATOR. Pt denied chewing/swallowing problems and nausea/vomiting. Pt was eating well with 75-100% meal intake since admission. Will cont to monitor. Please consult as needed. Current Diet: ADA diet Malnutrition Evaluation (09/06/2018) The patient does not meet criteria for a specified degree of malnutrition at this time. Will re-evaluate at follow-up as appropriate. Diet Education Needs Assessment: Diet education not indicated. Nutrition Care Level: low Signed: Fern Hahn, MS, RD, LD
--- NOTE | 2018-09-06 16:53 | Progress Note ---
DATE: 09/06/2018 SUBJECTIVE: The patient seen at bedside, doing somewhat better, still having some discomfort to the right lower extremity. OBJECTIVE: VITAL SIGNS: Afebrile. Pulse rate 67, respiratory rate 18, blood pressure 145/67, and O2 saturation 96%. EXTREMITIES: Gangrenous changes dry noted to the right fourth toe. Pregangrenous changes noted to the third digit of right foot. Cellulitis resolving from the dorsal aspect of the right lower extremity. Skin temperature is warm to touch. LABORATORY DATA: White blood cell count of 6.10, hemoglobin 11.1, hematocrit 33.7 with a platelet count of 221. ASSESSMENT: Dry gangrene, right foot. Cellulitis with pregangrenous changes noted to the third digit right with multiple ulcerations. PLAN: We will continue to let the foot demarcate before definitive procedure is performed. Continue IV antibiotics. Continue local wound care. Continue offloading. We will continue to follow. ANGELA Barrera/DULCE /[id number]
--- NOTE | 2018-09-06 19:24 | Progress Note ---
DATE: 09/06/2018 Cardiology Progress Note SUBJECTIVE: No complaints today. OBJECTIVE: VITAL SIGNS: Temperature 98.6, heart rate 72, respiratory rate 18, blood pressure 166/76, and O2 saturation 90% on 2 L/minute nasal cannula. GENERAL: In no acute distress. Alert. NECK: No JVD. CHEST: Clear to auscultation. CARDIOVASCULAR: Regular rate and rhythm. Normal S1 and S2. ABDOMEN: Soft and nontender. EXTREMITIES: No edema. Fourth toe tip gangrene and 3rd toe in the lateral aspect has a couple of subcentimeter areas of black eschar. MEDICATIONS: Cardiovascular medications reviewed. Vancomycin, nifedipine extended release 90 mg daily, metoprolol succinate 100 mg b.i.d., aspirin 81 mg daily, prednisone 5 mg daily, Zosyn, cyclosporine 25 mg daily, sirolimus 1 mg daily. LABORATORY DATA: Studies reviewed. White blood cell 6.1, hemoglobin 11.1, and platelets 221. Creatinine remains stable at 0.9, potassium 3.8, glucose 163, normal transaminases. ASSESSMENT: 1. Coronary artery disease, status post right anterior tibial CSI and percutaneous transluminal angioplasty. 2. Diabetes mellitus. 3. Hypertension. 4. Chronic kidney disease, status post renal transplant, on immunosuppression therapy. 5. Limb salvage procedure. RECOMMENDATIONS: 1. Continue Podiatry care. 2. Volume management per Nephrology. 3. Immunosuppression per Nephrology. 4. Antibiotics. 5. Antihypertensives, antiplatelets, and statins to be continued at current dosing. 6. Guarded limb prognosis, will likely need amputation for 4th toe and 3rd toe demarcation advised. Jaswinder Bell MD AFRachelle/MODL /[id number]
--- NOTE | 2018-09-06 20:19 | NUR ---
RECEIVED PT IN BED AOX3 .RESPIRATIONS ARE EVEN AND UNLABORED RT FOOT WIT DRESSING DENIES PAIN .CALL LIGHT WITH IN REACH .CONTINUE TO MONITOR
[2018-09-06] MEDS: PRAVASTATIN 20 MG TAB PO SCH (22:08)
[2018-09-07] VITALS (8 sets, daily range): BP systolic 141–170; BP diastolic 49–81
[2018-09-07] MEDS ORDERED: CHLORASEPTIC SPRAY 177 ML BTL MM PRN (00:15)
[2018-09-07] MEDS ORDERED: CEPACOL SORE THROAT LOZENGES PO ONE (00:15)
--- NOTE | 2018-09-07 02:00 | NUR ---
PATIENT COMPLAIN ABOUT BLOOD SUGAR LOW, CHECK HIS SUGAR LEVEL AND THE RESULTS 51 MG/DL. GAVE PATIENT A SANDWICH AND JUICE AND HE STARTED EATING AND DRINKING, INFORMED THE NURSE AND INFORMED HER TO RECHECK THE BLOOD SUGAR.
--- NOTE | 2018-09-07 03:05 | NUR ---
NURSE RECHECKED HIS BLOOD SUGAR AND RESULTS 115 MG/DL.
--- NOTE | 2018-09-07 06:41 | NUR ---
PT C/O THROAT PAIN AND CALLED DR SHETTY GOT THE ORDER FOR CHLORASEPTIC SPRAY .
[2018-09-07] MEDS: SODIUM CHLORIDE 0.9% 1000ML 1,000 ML IV SCH ×2 (06:43→14:15)
[2018-09-07] MEDS: PIPERACILLIN/TAZO 2.25 GM 50 ML IV SCH ×3 (06:43→22:00)
--- NOTE | 2018-09-07 06:47 | NUR ---
NO CHLORASEPTIC SPRAY IS NOT AVAILABLE IN THE NIGHT AND GIVEN CEPACOL SORE THROAT TABLETS
--- NOTE | 2018-09-07 06:50 | NUR ---
CHLORASEPTIC SPRAY WAS NOT AVAILABLE AND ONLINE PHARMACY HAS GIVEN CEPACOL.PT IS BETTER NOW .CALL LIGHT WITH IN REACH.CONTINUE TO MONITOR
--- NOTE | 2018-09-07 07:00 | NUR ---
SHIFT REPORT GIVEN BY NIGHT RN WHILE ROUNDING BS. PT DENIES NEEDS AT THIS TIME.
[2018-09-07] MEDS: OLOPATADINE 5 ML BTL OP SCH ×2 (08:53→17:51)
[2018-09-07] MEDS: NIFEDIPINE CR 30 MG TAB PO SCH (08:54)
[2018-09-07] MEDS: PREDNISONE 5 MG TAB PO SCH (08:54)
[2018-09-07] MEDS: NON-FORMULARY MEDICATION (Sirolimus (Rapamune) 1 MG) PO SCH (08:54)
[2018-09-07] MEDS: CYCLOSPORINE 25 MG CAP PO SCH ×2 (08:54→17:51)
[2018-09-07] MEDS: FAMOTIDINE 20 MG TAB PO SCH (08:54)
[2018-09-07] MEDS: OMEGA 3 POLYUNSAT FATTY ACIDS 1000 MG SOFTGEL PO SCH ×2 (08:54→17:51)
[2018-09-07] MEDS: CLOPIDOGREL BISULFATE 75 MG TAB PO SCH (08:54)
[2018-09-07] MEDS: ASPIRIN 81 MG CHEW TAB PO SCH (08:54)
[2018-09-07] MEDS: METOPROLOL SUCCINATE 50 MG TAB XL PO SCH ×2 (08:55→17:51)
[2018-09-07] MEDS: CALCIUM CARBONATE 500 MG CHEWABLE TABS PO SCH (08:55)
[2018-09-07] MEDS: CHOLECALCIFEROL 1,000 UNIT TAB PO SCH (08:55)
[2018-09-07] MEDS: INSULIN GLARGINE 100 UNITS/ML VIAL SQ SCH (08:56)
[2018-09-07] MEDS: INSULIN REGULAR, HUMAN 100 UNIT/1 ML 3ML VIAL SQ SCH ×4 (08:57→21:00)
[2018-09-07] MEDS: VANCOMYCIN 500MG/NS 0.9% 100ML 100 ML IV SCH ×2 (12:00)
--- NOTE | 2018-09-07 16:18 | Progress Note ---
DATE: 09/07/2018 SUBJECTIVE: The patient seen at beside, accompanied by spouse, complaining of some shortness of breath. Denies any history of fevers, chills, nausea, or vomiting. OBJECTIVE: VITAL SIGNS: Afebrile, pulse rate 71, respirations 20, blood pressure 158/74, and O2 saturation 96%. LABORATORY DATA: White blood cell count of 6.10, hemoglobin 11.1 with platelet count of 221. He has dry gangrenous changes noted to the fourth digit of right foot with starting to become dry gangrenous changes to the lateral aspect of the third digit right. Pedal pulses are diminished. Skin temperature warm to touch. Decreased cellulitis of the dorsal aspect of the right foot. ASSESSMENT: Dry gangrene and cellulitis with multiple grade 2 and 3 ulcerations, both third and fourth digits. PLAN: We will continue diluted wet-to-dry Betadine. Continue letting the foot to demarcate. Definitive procedure will be done sometime next week. The patient is aware of possibly losing two toes and if this continues, he may end up needing a transmetatarsal amputation. ANGELA aBrrera/DULCE /[id number]
[2018-09-07] MEDS ORDERED: FUROSEMIDE INJ 10 MG/ML 4 ML VIAL IV ONE (18:15)
[2018-09-07] MEDS ORDERED: ALBUTEROL/IPRATROPIUM 3 ML NEB NEB PRN (18:30)
--- NOTE | 2018-09-07 19:48 | NUR ---
RECEIVED PT IN BED AOX3 .EXPLAIN THE PT ABOUT THE BREATHING TX AND ABOUT THE IV ABT .SON AT THE BEDSIDE .CALL LIGHT WITH IN REACH CONTINUE TO MONITOR
[2018-09-07] MEDS: PRAVASTATIN 20 MG TAB PO SCH (21:00)
[2018-09-08] VITALS (9 sets, daily range): BP systolic 134–163; BP diastolic 63–75
--- NOTE | 2018-09-08 03:40 | Progress Note ---
DATE: 09/07/2018 SUBJECTIVE: No new complaints. PHYSICAL EXAMINATION: VITAL SIGNS: Temperature 97 degrees, heart rate 73, blood pressure 170/81, respiratory rate 16, O2 saturation 97%. BMI 27. GENERAL: In no acute distress. Alert. NECK: No JVD. CHEST: Clear to auscultation. CARDIOVASCULAR: Regular rate and rhythm. Normal S1, S2. ABDOMEN: Soft, nontender. EXTREMITIES: Trace edema, foot wounds covered with dressing. MEDICATIONS: Cardiovascular medications reviewed. Prednisone 5 mg daily, pravastatin 10 mg at bedtime, aspirin 81 mg daily, metoprolol succinate 100 mg b.i.d., cyclosporine 50 mg daily, sirolimus 1 tablet daily , nifedipine 90 mg daily, clopidogrel 75 mg daily. LABORATORY DATA: Studies reviewed. Creatinine 0.9. Hemoglobin 11.1, platelets 221, white blood cells 6.1. ASSESSMENT: 1. Right 4th toe gangrene and 5th toe early gangrenous changes, severe peripheral vascular disease, active infection, and immunosuppressed state. 2. Chronic kidney disease, status post renal transplant recipient. 3. Hypertension. 4. Diabetes mellitus. RECOMMENDATIONS: Status post revascularization of the right anterior tibial with CSI atherectomy and SWAMPER. Continue current cardiovascular medications. Overall guarded prognosis. Likely will need amputation of 4th toe with 3rd toe borderline weaning demarcation. MD MIRELLA Bates/DULCE /[id number]
[2018-09-08] MEDS: PIPERACILLIN/TAZO 2.25 GM 50 ML IV SCH ×3 (05:34→21:43)
--- NOTE | 2018-09-08 06:28 | NUR ---
PT RESTED AND DENIES PAIN .NO ACUTE DISTRESS NOTED .CONTINUE TO MONITOR .
--- NOTE | 2018-09-08 07:20 | NUR ---
pt up in bed no distress ntoed,denies pain,
--- NOTE | 2018-09-08 08:00 | NUR ---
DR DAVE HERE DRSG TO RT FOOT CHANGED,SECOND TOE BLACK,BETADINE W/D DRSG APPLIED
[2018-09-08] MEDS: OMEGA 3 POLYUNSAT FATTY ACIDS 1000 MG SOFTGEL PO SCH ×2 (08:23→16:42)
[2018-09-08] MEDS: CLOPIDOGREL BISULFATE 75 MG TAB PO SCH (08:23)
[2018-09-08] MEDS: PREDNISONE 5 MG TAB PO SCH ×2 (08:23→17:30)
[2018-09-08] MEDS: ASPIRIN 81 MG CHEW TAB PO SCH (08:23)
[2018-09-08] MEDS: CYCLOSPORINE 25 MG CAP PO SCH ×2 (08:23→16:41)
[2018-09-08] MEDS: NON-FORMULARY MEDICATION (Sirolimus (Rapamune) 1 MG) PO SCH (08:23)
[2018-09-08] MEDS: FAMOTIDINE 20 MG TAB PO SCH (08:23)
[2018-09-08] MEDS: CALCIUM CARBONATE 500 MG CHEWABLE TABS PO SCH (08:24)
[2018-09-08] MEDS: METOPROLOL SUCCINATE 50 MG TAB XL PO SCH ×2 (08:24→16:47)
[2018-09-08] MEDS: NIFEDIPINE CR 30 MG TAB PO SCH (08:24)
[2018-09-08] MEDS: CHOLECALCIFEROL 1,000 UNIT TAB PO SCH (08:25)
[2018-09-08] MEDS: INSULIN GLARGINE 100 UNITS/ML VIAL SQ SCH (08:32)
[2018-09-08] MEDS: INSULIN REGULAR, HUMAN 100 UNIT/1 ML 3ML VIAL SQ SCH ×4 (08:32→21:43)
[2018-09-08] MEDS: OLOPATADINE 5 ML BTL OP SCH ×2 (09:00→18:35)
[2018-09-08] MEDS: HYDROCODONE/APAP 5MG-325MG TAB PO PRN (11:05)
--- NOTE | 2018-09-08 11:32 | Progress Note ---
DATE: 09/08/2018 Cardiology Progress Note SUBJECTIVE: No new complaints. Shortness of breath improved. OBJECTIVE: VITAL SIGNS: Temperature 98.3, heart rate 66, blood pressure 163/72, respiratory rate 18, O2 saturation 96%. GENERAL: In no acute distress, alert. NECK: No JVD. CHEST: Clear to auscultation. CARDIOVASCULAR: Regular rate and rhythm. Normal S1 and S2. ABDOMEN: Soft. EXTREMITIES: Trace edema. MEDICATIONS: Cardiovascular medications reviewed. Aspirin 81 mg daily, pravastatin 10 mg daily, cyclosporine, sirolimus, prednisone, nifedipine 90 mg daily, clopidogrel 75 mg daily, vancomycin and Zosyn. Start metoprolol 100 mg b.i.d. LABORATORY DATA: Studies reviewed. Potassium 3.8, creatinine 0.9. Hemoglobin 11.1, platelets 221. ASSESSMENT: 1. Peripheral arterial disease with right 4th toe gangrene and black eschar to lateral aspect of 3rd right toe, status post revascularization with CSI atherectomy and TALENT MANAGEMENT SPECIALIST of right anterior tibial. 2. Anemia. 3. Hypertension. 4. Diabetes mellitus. 5. Chronic kidney disease status post renal transplant, on immunosuppressive therapy. RECOMMENDATIONS: 1. Continue current cardiovascular medications. 2. Monitor renal function, remain stable at this point. MD MIRELLA Bates/DULCE /[id number]
[2018-09-08] MEDS: VANCOMYCIN 500MG/NS 0.9% 100ML 100 ML IV SCH ×2 (11:58)
--- NOTE | 2018-09-08 12:38 | Progress Note ---
DATE: 09/08/2018 SUBJECTIVE: The patient seen at beside, accompanied by spouse, doing somewhat better, having some discomfort to the right lower extremity. OBJECTIVE: VITAL SIGNS: Afebrile, pulse rate 66, respirations 18, blood pressure 163/72, and O2 saturation 96%. EXTREMITIES: Positive cellulitis noted to the right leg with some edema, ulceration to the right foot more than 3.5 to 4 cm diameter, Charcot foot with possible osteomyelitis, granular fibrotic base noted with some drainage, but negative foul smell. LABORATORY DATA: Noted he has a white blood cell count of 6.1. ASSESSMENT: Grade 3 ulcer, possible osteo, Charcot foot with cellulitis. PLAN: We will continue IV antibiotics. Continue local wound care. Continue Zosyn and vancomycin. ANGELA Barrera/DULCE /[id number]
--- NOTE | 2018-09-08 12:43 | Progress Note ---
DATE: 09/08/2018 SUBJECTIVE: The patient seen at bedside, doing somewhat better. Denies any history of fever, chills, nausea, or vomiting. OBJECTIVE: VITAL SIGNS: Afebrile. Vital signs stable. EXTREMITIES: Gangrenous changes noted to the 4th digit of the right foot distally to the proximal interphalangeal joint. Decreased cellulitis. Skin temperature is warm to touch. He has pregangrenous changes noted to the 3rd digit right with grade 3 ulcerations x2. ASSESSMENT: Peripheral arterial disease with dry gangrene, cellulitis to the right foot with grade 3 ulcerations to the 3rd digit of the right foot with pregangrene. PLAN: We will continue to let the foot demarcate. Definitive procedure will be done sometime next week. The patient understands the 4th toe is definitely going to be amputated. We will wait and see if the 3rd toe needs to be amputated with an I and D and flap closure. ANGELA Barrera/DULCE /[id number]
--- NOTE | 2018-09-08 15:30 | NUR ---
Visit made by the Spiritual Care Department Pastoral Visitor, Jai Gonzalez. Pt sleeping soundly and no family present. Pastoral Visitor left a card describing availability of care manager cna and instructions on how to contact a care manager cna. JEWELL COLUNGA Arcade Attendant Spiritual Care Department O: [phone] Pager: [phone] ([phone] number calling from)
--- NOTE | 2018-09-08 16:00 | NUR ---
WOUND CARE CONSULTATION -FOLLOW UP Patient admitted to ER from Home for Cellulitis of Right Foot and 4th Toe. DX: PAD, DFU with Cellulitis of Right Foot and 4th Toe HX: DM type2, HTN, hypercholesterolemia, kidney transplantation, angioplasty , Left TMA, prostate surgery, and cataract surgery - BLE Arterial Doppler Done - Multisegmental Occlusions to below knee bilaterally. - Ischemic Right Foot 3rd and 4th toes. - Patient seen by Dr Patt Mcmahon Today. Dressing performed today. Goal for foot ulcers is to allow area to continue to demarcate and will require sx intervention next week. Patient Visit: Eduardo score 20 Conservative PUP Active. Visco Mattress in place. No Pressure Ulcers Identified. RECOMMENDATION: Continue treatment plan. Addendum: 09/08/18 at 1607 by Evangelista Dunn RN Amended: Links added.
--- NOTE | 2018-09-08 16:55 | NUR ---
DR BRADFORD HERE ORDERS WRITTEN
--- NOTE | 2018-09-08 17:25 | NUR ---
PT UP IN BED NO DISTRESS NTOED DENIES PAIN,DRSG TO RT FOOT CD&I
--- NOTE | 2018-09-08 19:00 | NUR ---
Bedside rounds completed. Pt alert and orient to name. Pt lying in bed HOB 45 degrees. Denies pain at this time. No acute distress noted. Call cordero within reach. Will continue to monitor.
[2018-09-08] MEDS: PRAVASTATIN 20 MG TAB PO SCH (21:42)
[2018-09-09] VITALS (8 sets, daily range): BP systolic 136–173; BP diastolic 65–84
[2018-09-09] MEDS: VANCOMYCIN 500MG/NS 0.9% 100ML 100 ML IV SCH ×2 (00:40→12:00)
[2018-09-09] MEDS: PIPERACILLIN/TAZO 2.25 GM 50 ML IV SCH ×3 (05:44→23:14)
--- NOTE | 2018-09-09 07:25 | NUR ---
pt up in bed no distress ntoed denies pain,drsg to rt foot cd&i.
[2018-09-09] MEDS: INSULIN REGULAR, HUMAN 100 UNIT/1 ML 3ML VIAL SQ SCH ×4 (07:30→23:14)
[2018-09-09] MEDS: OMEGA 3 POLYUNSAT FATTY ACIDS 1000 MG SOFTGEL PO SCH ×2 (08:23→17:15)
[2018-09-09] MEDS: ASPIRIN 81 MG CHEW TAB PO SCH (08:23)
[2018-09-09] MEDS: CYCLOSPORINE 25 MG CAP PO SCH ×2 (08:23→17:14)
[2018-09-09] MEDS: FAMOTIDINE 20 MG TAB PO SCH (08:23)
[2018-09-09] MEDS: CHOLECALCIFEROL 1,000 UNIT TAB PO SCH (08:27)
[2018-09-09] MEDS: CALCIUM CARBONATE 500 MG CHEWABLE TABS PO SCH (08:27)
[2018-09-09] MEDS: METOPROLOL SUCCINATE 50 MG TAB XL PO SCH ×2 (08:27→17:14)
[2018-09-09] MEDS: PREDNISONE 5 MG TAB PO SCH (08:28)
[2018-09-09] MEDS: NIFEDIPINE CR 30 MG TAB PO SCH (08:28)
[2018-09-09] MEDS: INSULIN GLARGINE 100 UNITS/ML VIAL SQ SCH (08:29)
[2018-09-09] MEDS: NON-FORMULARY MEDICATION (Sirolimus (Rapamune) 1 MG) PO SCH (09:59)
[2018-09-09] MEDS: OLOPATADINE 5 ML BTL OP SCH ×2 (10:00→17:00)
--- NOTE | 2018-09-09 18:00 | NUR ---
dr barnett here
--- NOTE | 2018-09-09 18:10 | NUR ---
pt up in bed no distress noted,denies pain.
--- NOTE | 2018-09-09 19:00 | NUR ---
Bedside rounds completed. Pt alert and orient to name. Pt c/o nasal passage dryness, receiving O2 at 2L via NC. Denies pain at this time. No acute distress noted. Call cordero within reach. Will continue to monitor. RT will bring humidified solution.
--- NOTE | 2018-09-09 19:14 | Progress Note ---
DATE: 09/09/2018 SUBJECTIVE: The patient seen at beside, accompanied by , decreased pain to the right lower extremity, feeling better. OBJECTIVE: VITAL SIGNS: Afebrile, pulse rate 68, respirations 18, blood pressure 163/83, and O2 saturation 100%. EXTREMITIES: Pedal pulses were diminished. Skin temperature is warm to the touch. There is decreased cellulitis noted to the third digit of right foot. Fourth toe is gangrenous with some cellulitis proximal to it. Decreased dorsal cellulitis to the right foot. LABORATORY DATA: Noted. Blood glucose of 171. ASSESSMENT: Peripheral arterial disease with gangrene and a grade 3 ulceration with pregangrenous changes noted to the third digit of the right foot. PLAN: We will continue to let the foot demarcate to see if the third toe is salvageable. Continue local wound care. Continue IV antibiotics. Plavix was stopped. INR, CBC with diff and BMP will be ordered tomorrow morning. ANGELA Barrera/DULCE /[id number]
[2018-09-09] MEDS: PRAVASTATIN 20 MG TAB PO SCH (23:14)
[2018-09-10] VITALS (7 sets, daily range): BP systolic 139–162; BP diastolic 61–80
[2018-09-10] MEDS: VANCOMYCIN 500MG/NS 0.9% 100ML 100 ML IV SCH (00:27)
--- NOTE | 2018-09-10 01:30 | NUR ---
RIGHT HAND 20G IV INFILTRATED, SWELLING, BURNING, AND DISCOMFORT TO SITE. REMOVED IV, ELEVATED HAND AND INFORMED PT TO KEEP HAND ELEVATED. APPLIED WARM COMPRESS TO SITE. PT DENIES PAIN MEDICATION. NO DISTRESS NOTED. CALL SETH WITHIN REACH. WILL CONTINUE TO MONITOR.
--- NOTE | 2018-09-10 02:01 | Progress Note ---
DATE: 09/09/2018 Cardiology Progress Note SUBJECTIVE: No complaints today. OBJECTIVE: VITAL SIGNS: Temperature 97.3, heart rate 66, blood pressure 155/77, respiratory rate 20, and O2 saturation 98%. GENERAL: In no acute distress. Alert. NECK: No JVD. CHEST: Clear to auscultation. CARDIOVASCULAR: Regular rate and rhythm. Normal S1 and S2. ABDOMEN: Soft. EXTREMITIES: No edema. Fourth right toe gangrene, 3rd toe with pregangrenous changes. MEDICATIONS: Cardiovascular medication reviewed: On prednisone, cyclosporine, sirolimus, Zosyn, vancomycin, metoprolol succinate 100 mg twice a day, nifedipine 90 mg daily, and pravastatin 10 mg p.o. at bedtime. Antiplatelets held in preparation for possible toe amputation early next week. LABORATORY STUDIES: Creatinine 0.9, hemoglobin 11.1, and platelets 221. ASSESSMENT: 1. Peripheral vascular disease, status post right anterior tibial revascularization with gangrenous 4th toe, pending amputation of 3rd toe, changes pending demarcation. 2. Immunosuppressed state in the setting of renal transplant recipient. 3. Chronic kidney disease. 4. Diabetes mellitus. 5. Hypertension. RECOMMENDATIONS: Continue current cardiovascular medications. Once okay with all the treating physicians, please resume antiplatelets. MD HoV/MODL /[id number]
--- NOTE | 2018-09-10 05:00 | NUR ---
PT REFUSES REINSERTION OF IV. INFORMED PT HE HAS ABX TO RECEIVE. PT REFUSED IV, STATED "I WILL WAIT FOR DOCTOR". PT STATES HE'S RECEIVING FREQUENT MEDICATIONS IN HIS IV. PT STABLE. CALL SETH WITHIN REACH.
[2018-09-10] MEDS: PIPERACILLIN/TAZO 2.25 GM 50 ML IV SCH (06:00)
[2018-09-10 06:16] LABS: INR 0.93
[2018-09-10 06:25] LABS: ALANINE AMINOTRANSFERASE 16 IU/L (0-55); ALBUMIN 2.6 g/dL (3.5-5.0); ALBUMIN/GLOBULIN RATIO 0.7 (0.8-2.0); ALKALINE PHOSPHATASE 87 IU/L (40-150); ANION GAP 11.8 mmol/L (8-16); BLOOD UREA NITROGEN 11 mg/dL (7-26); BUN/CREATININE RATIO 14 (6-25); CALCIUM 8.9 mg/dL (8.4-10.2); CARBON DIOXIDE 21 mmol/L (22-29); CHLORIDE 108 mmol/L (98-107); CREATININE, SERUM 0.81 mg/dL (0.72-1.25); EST GLOMERULAR FILTRATION RATE > 60 ML/MIN (60-); GLUCOSE 99 mg/dL (74-118); POTASSIUM 3.8 mmol/L (3.5-5.1); SODIUM 137 mmol/L (136-145)
[2018-09-10] MEDS: HYDROCODONE/APAP 5MG-325MG TAB PO PRN ×2 (07:21→21:58)
[2018-09-10] MEDS: INSULIN REGULAR, HUMAN 100 UNIT/1 ML 3ML VIAL SQ SCH ×4 (07:30→21:56)
--- NOTE | 2018-09-10 07:30 | NUR ---
PT UP IN BED C/O RT FOOT PAIN LEVEL 6 MEDICATED.
--- NOTE | 2018-09-10 07:30 | NUR ---
PT UP IN BED O2 2L NC IN PLACE,NO C/O SOB,DRSG TO RT FOOT CD&I
[2018-09-10] MEDS: NON-FORMULARY MEDICATION (Sirolimus (Rapamune) 1 MG) PO SCH (08:10)
[2018-09-10] MEDS: OMEGA 3 POLYUNSAT FATTY ACIDS 1000 MG SOFTGEL PO SCH ×2 (08:10→17:00)
[2018-09-10] MEDS: PREDNISONE 5 MG TAB PO SCH ×2 (08:10→10:30)
[2018-09-10] MEDS: CYCLOSPORINE 25 MG CAP PO SCH ×2 (08:10→17:00)
[2018-09-10] MEDS: FAMOTIDINE 20 MG TAB PO SCH (08:10)
[2018-09-10] MEDS: NIFEDIPINE CR 30 MG TAB PO SCH (08:12)
[2018-09-10] MEDS: METOPROLOL SUCCINATE 50 MG TAB XL PO SCH ×2 (08:12→17:00)
[2018-09-10] MEDS: CALCIUM CARBONATE 500 MG CHEWABLE TABS PO SCH (08:13)
[2018-09-10] MEDS: INSULIN GLARGINE 100 UNITS/ML VIAL SQ SCH (08:13)
[2018-09-10] MEDS: CHOLECALCIFEROL 1,000 UNIT TAB PO SCH (08:13)
[2018-09-10] MEDS: OLOPATADINE 5 ML BTL OP SCH ×2 (09:00→17:00)
--- NOTE | 2018-09-10 09:51 | Diagnostic Imaging Report ---
EXAMINATION: PA and lateral views of the chest. COMPARISON: None CLINICAL HISTORY: Short of breath DISCUSSION: Lines/tubes: None. Lungs: Left lower lung atelectasis. Pleura: Left pleural effusion. Heart and mediastinum: The cardiomediastinal silhouette is normal. Bones and soft tissues: No acute bony abnormalities. IMPRESSION: Left pleural effusion with atelectasis Signed by: Dr. John Avery M.D. on 09/10/2018 9:48 AM
--- NOTE | 2018-09-10 10:00 | NUR ---
DR SHETTY NOTIFIED OF NO IV ACCESS,ORDERS WRITTEN.
[2018-09-10] MEDS: DOXYCYCLINE HYCLATE TABLET 100 MG TAB PO SCH ×2 (11:42→17:00)
[2018-09-10] MEDS: AMOXICILLIN/CLAVULANATE K 500 MG TAB PO SCH ×2 (11:42→17:00)
[2018-09-10] MEDS: ENOXAPARIN SOD INJ 40 MG/0.4 ML SYR SC SCH (17:00)
--- NOTE | 2018-09-10 17:53 | NUR ---
PT UP IN BED DENIES PAIN,NO DISTRESS NOTED.
--- NOTE | 2018-09-10 18:55 | NUR ---
Bedside rounds completed. Pt alert and orient to name. O2 at 2L via NC. Denies pain at this time. No acute distress noted. Call cordero within reach. Will continue to monitor.
[2018-09-10] MEDS: PRAVASTATIN 20 MG TAB PO SCH (21:55)
[2018-09-11] VITALS (8 sets, daily range): BP systolic 131–168; BP diastolic 63–73
--- NOTE | 2018-09-11 00:35 | Progress Note ---
DATE: 09/10/2018 SUBJECTIVE: The patient seen at beside, accompanied by , doing okay. Denies any history of fever, chills, nausea, or vomiting. Decreased pain to the right lower extremity. OBJECTIVE: VITAL SIGNS: Afebrile, pulse rate 67, respirations 18, blood pressure 156/79, and O2 saturation 96%. LABORATORY DATA: Labs were not able to be obtained due to the fact that the patient has very small veins. We will repeat CBC with diff, PT and PTT tomorrow in the morning. Gangrenous changes noted to the fourth digit right foot, decreased cellulitis with multiple grade 3 ulcerations at the lateral aspect of the third digit of the right foot. ASSESSMENT: Peripheral arterial disease, grade 3 ulceration with pre-gangrene to the third toe of the right foot with gangrenous changes noted to the fourth digit with cellulitis. PLAN: We will continue IV antibiotics. Currently on doxycycline orally due to the fact that he has no IV. We will continue local wound care. Continue offloading. We will continue to let the foot demarcate. Definitive procedure will be done sometime next week. ANGELA Barrera/DULCE /[id number]
--- NOTE | 2018-09-11 01:40 | Progress Note ---
DATE: 09/10/2018 Cardiology Progress Note SUBJECTIVE: No complaints. Dyspnea improved following use of incentive spirometer. OBJECTIVE: VITAL SIGNS: Temperature 98.4, heart rate 67, respiratory rate 18, blood pressure 156/79, O2 saturation 96% on nasal cannula, 2 L/minute. GENERAL: No acute distress, alert. NECK: No JVD. CHEST: Clear to auscultation. CARDIOVASCULAR: Regular rate and rhythm. Normal S1, S2. ABDOMEN: Soft. EXTREMITIES: No edema. Fourth toe, gangrene. Third right toe, pregangrenous changes, covered with dressings. MEDICATIONS: Cardiovascular medications: 1. Amoxicillin and clavulanate. 2. Doxycycline. 3. Metoprolol succinate 100 mg b.i.d. 4. Nifedipine extended release 90 mg daily. 5. Sirolimus 1 mg daily. 6. Cyclosporine 25 mg daily. 7. Prednisone 5 mg daily. 8. Lovenox 40 mg subcu daily. 9. Additional cyclosporine 50 mg daily. 10. Anti-platelets on hold currently, pending podiatry procedure. LABORATORY DATA: Studies reviewed. INR is 0.9. White blood cells 6.1, hemoglobin 11.1, platelets 221. Blood cultures, no growth after 5 days. ASSESSMENT: 1. Peripheral vascular disease, status post right anterior tibial CSI atherectomy and CONCHE OPERATOR. 2. Diabetes mellitus. 3. Chronic kidney disease, status post renal transplant, on immunosuppressive therapy. 4. Diabetes mellitus. 5. Hypertension. RECOMMENDATIONS: 1. If okay with podiatry, resume aspirin given recent revascularization and once okay with Podiatry, please resume clopidogrel. 2. Continue rest of cardiovascular medications. MD MIRELLA Bates/DULCE /[id number]
[2018-09-11 06:06] LABS: BASOPHILS % 0.4 % (0.0-1.0); EOSINOPHILS # (AUTO) 0.1 (0.0-0.4); EOSINOPHILS % 0.9 % (0.0-6.0); HEMATOCRIT 35.4 % (38.2-49.6); HEMOGLOBIN 11.4 g/dL (14.0-18.0); LYMPHOCYTES # (AUTO) 0.8 (1.0-3.2); LYMPHOCYTES % 10.8 % (18.0-39.1); MEAN CORPUSCULAR HEMOGLOBIN 27.7 pg (28-32); MEAN CORPUSCULAR HGB CONC 32.2 g/dL (31-35); MEAN CORPUSCULAR VOLUME 85.9 fL (81-99); MONOCYTES # (AUTO) 1.3 (0.2-0.8); NEUTROPHILS # (AUTO) 5.3 (2.1-6.9); NEUTROPHILS % 69.7 % (38.7-80.0); PLATELET COUNT 271 x10e3/uL (140-360); RED BLOOD COUNT 4.12 x10e6/uL (4.3-5.7); RED CELL DISTRIBUTION WIDTH 13.2 % (11.7-14.4)
[2018-09-11 06:35] LABS: ALANINE AMINOTRANSFERASE 17 IU/L (0-55); ALBUMIN 2.7 g/dL (3.5-5.0); ALBUMIN/GLOBULIN RATIO 0.8 (0.8-2.0); ALKALINE PHOSPHATASE 96 IU/L (40-150); ANION GAP 12.4 mmol/L (8-16); BLOOD UREA NITROGEN 11 mg/dL (7-26); BUN/CREATININE RATIO 14 (6-25); CALCIUM 8.7 mg/dL (8.4-10.2); CARBON DIOXIDE 22 mmol/L (22-29); CHLORIDE 109 mmol/L (98-107); CREATININE, SERUM 0.81 mg/dL (0.72-1.25); EST GLOMERULAR FILTRATION RATE > 60 ML/MIN (60-); GLUCOSE 154 mg/dL (74-118); MAGNESIUM 1.8 MG/DL (1.3-2.1); PHOSPHORUS 3.4 MG/DL (2.3-4.7); POTASSIUM 3.4 mmol/L (3.5-5.1); SODIUM 140 mmol/L (136-145)
--- NOTE | 2018-09-11 07:00 | NUR ---
RECEIVED REPORT FROM NIGHT NURSE, WALKING ROUNDS COMPLETED. PATIENT IS RESTING IN BED. NO ACUTE DISTRESS NOTED. CALL LIGHT WITHIN REACH. BED IN THE LOWEST POSITION.
[2018-09-11] MEDS: INSULIN REGULAR, HUMAN 100 UNIT/1 ML 3ML VIAL SQ SCH ×4 (07:30→21:37)
[2018-09-11] MEDS: ASPIRIN 81 MG CHEW TAB PO SCH ×2 (09:00→10:30)
[2018-09-11] MEDS: OLOPATADINE 5 ML BTL OP SCH ×2 (09:00→17:00)
[2018-09-11] MEDS: FAMOTIDINE 20 MG TAB PO SCH (09:29)
[2018-09-11] MEDS: NON-FORMULARY MEDICATION (Sirolimus (Rapamune) 1 MG) PO SCH (09:29)
[2018-09-11] MEDS: DOXYCYCLINE HYCLATE TABLET 100 MG TAB PO SCH ×2 (09:29→17:45)
[2018-09-11] MEDS: NIFEDIPINE CR 30 MG TAB PO SCH (09:29)
[2018-09-11] MEDS: OMEGA 3 POLYUNSAT FATTY ACIDS 1000 MG SOFTGEL PO SCH ×2 (09:29→17:44)
[2018-09-11] MEDS: CHOLECALCIFEROL 1,000 UNIT TAB PO SCH (09:29)
[2018-09-11] MEDS: CALCIUM CARBONATE 500 MG CHEWABLE TABS PO SCH (09:29)
[2018-09-11] MEDS: PREDNISONE 5 MG TAB PO SCH (09:29)
[2018-09-11] MEDS: CYCLOSPORINE 25 MG CAP PO SCH ×2 (09:29→17:44)
[2018-09-11] MEDS: METOPROLOL SUCCINATE 50 MG TAB XL PO SCH ×2 (09:29→17:45)
[2018-09-11] MEDS: AMOXICILLIN/CLAVULANATE K 500 MG TAB PO SCH ×2 (09:29→17:44)
[2018-09-11] MEDS: INSULIN GLARGINE 100 UNITS/ML VIAL SQ SCH (09:29)
--- NOTE | 2018-09-11 09:48 | NUR ---
SPOKE WITH PATIENT WITH CULTURAL LINK ASSISTANT HVAC MECHANIC JEWEL [id number]; EDUCATED ABOUT IMM, SIGNED, FILED IN CHART, WITH COPY LEFT WITH FAMILY AT BEDSIDE. ANSWERED ALL QUESTIONS AND LEFT CARD FOR FURTHER QUESTIONS.
--- NOTE | 2018-09-11 11:48 | Progress Note ---
DATE: 09/11/2018 Cardiology Progress Note SUBJECTIVE: No complaints. OBJECTIVE: VITAL SIGNS: Temperature 96.6, heart rate 66, blood pressure 168/73, respiratory rate 19, and O2 sat 93%. GENERAL: In no acute distress, alert. NECK: No JVD. CHEST: Clear to auscultation. CARDIOVASCULAR: Regular rate and rhythm. Normal S1 and S2. No S3 or S4. ABDOMEN: Soft, nontender. EXTREMITIES: With right 1st toe gangrene and right 3rd toe black eschar in the lateral aspect of the toe. MEDICATIONS: Cardiovascular medications reviewed, on prednisone, nifedipine, amoxicillin clavulanate, metoprolol, cyclosporine, aspirin, pravastatin, and Lovenox. LABORATORY DATA: Studies reviewed. Sodium 140, potassium 3.4, chloride 109, bicarbonate 22, BUN 11, creatinine 0.8, glucose 159. White blood cells 7.6, hemoglobin 11.4, platelets 271. INR 0.9. AST 16, ALT 17, total protein 0.4, alk phos 96. ASSESSMENT: 1. Peripheral arterial disease with gangrene right 1st toe and right 3rd toe with black eschar for gangrenous changes. Awaiting demarcation. 2. Status post revascularization of the right anterior tibial with CSI, atherectomy, and ELECTROPHONIC ENGINEER. 3. Hypertension. 4. Diabetes mellitus. 5. Dyslipidemia. 6. Chronic kidney disease, on immunosuppressants. RECOMMENDATIONS: 1. If okay with other treating physicians, please resume aspirin today 81 mg daily and if okay with Podiatry, please continue with clopidogrel 75 mg daily. 2. Continue rest of cardiovascular medications. Jaswinder Bell MD AFRachelle/MODL /[id number]
--- NOTE | 2018-09-11 13:03 | NUR ---
NOTIFIED DR. SHETTY OF POTASSIUM LEVEL OF 3.4, NO NEW ORDERS RECEIVED.
--- NOTE | 2018-09-11 16:55 | Progress Note ---
DATE: 09/11/2018 SUBJECTIVE: The patient seen at beside, accompanied by spouse. Doing somewhat better. Decreased pain to the right lower extremity. OBJECTIVE: VITAL SIGNS: Afebrile, pulse rate 66, respirations 19, blood pressure 168/73, and O2 saturation 93%. LABORATORY DATA: Labs show a white blood cell count of 7.6, hemoglobin of 11.4, and hematocrit 35.4 with a platelet count of 271. Blood glucose of 139. INR of 0.93. ASSESSMENT: Gangrenous changes noted to fourth digit of right foot with dorsal cellulitis to the right foot noted. Still third toe trying to define if it is going to heal or not, it has multiple grade 3 ulcerations, stable for now. We will continue to let the foot demarcate. Towards the end of week, definitive procedure will be performed. We will continue local wound care, IV antibiotics, and offloading for now. ANGELA Barrera/DUCLE /[id number]
[2018-09-11] MEDS: ENOXAPARIN SOD INJ 40 MG/0.4 ML SYR SC SCH (17:45)
[2018-09-11] MEDS ORDERED: POTASSIUM CHLORIDE 20 MEQ TAB CR PO ONE (18:45)
--- NOTE | 2018-09-11 19:21 | NUR ---
REPORT GIVEN TO ONCOMING NURSE, WALKING ROUNDS DONE. PATIENT IS RESTING IN BED. NO ACUTE DISTRESS NOTED. CALL LIGHT WITHIN REACH. BED IN THE LOWEST POSITION.
--- NOTE | 2018-09-11 19:23 | NUR ---
PT IS RESTING IN BED. NO RESPIRATORY DISTRESS NOTED. BED IN THE LOWEST POSITION, LOCKED, AND CALL LIGHT WITHIN REACH. WILL CONTINUE TO MONITOR.
[2018-09-11] MEDS: PRAVASTATIN 20 MG TAB PO SCH (21:37)
[2018-09-12] VITALS (8 sets, daily range): BP systolic 137–157; BP diastolic 63–72
[2018-09-12] MEDS: HYDROCODONE/APAP 5MG-325MG TAB PO PRN ×2 (03:39→20:36)
[2018-09-12] MEDS ORDERED: BISACODYL 5 MG TAB EC PO ONE (06:00)
[2018-09-12] MEDS: INSULIN REGULAR, HUMAN 100 UNIT/1 ML 3ML VIAL SQ SCH ×4 (07:30→21:25)
[2018-09-12] MEDS: NON-FORMULARY MEDICATION (Sirolimus (Rapamune) 1 MG) PO SCH (08:24)
[2018-09-12] MEDS: OLOPATADINE 5 ML BTL OP SCH ×2 (08:24→17:00)
[2018-09-12] MEDS: CALCIUM CARBONATE 500 MG CHEWABLE TABS PO SCH (08:27)
[2018-09-12] MEDS: CHOLECALCIFEROL 1,000 UNIT TAB PO SCH (08:28)
[2018-09-12] MEDS: FAMOTIDINE 20 MG TAB PO SCH (08:28)
[2018-09-12] MEDS: OMEGA 3 POLYUNSAT FATTY ACIDS 1000 MG SOFTGEL PO SCH ×2 (08:28→17:30)
[2018-09-12] MEDS: CYCLOSPORINE 25 MG CAP PO SCH ×2 (08:28→17:30)
[2018-09-12] MEDS: ASPIRIN 81 MG CHEW TAB PO SCH (08:28)
[2018-09-12] MEDS: DOXYCYCLINE HYCLATE TABLET 100 MG TAB PO SCH ×2 (08:28→17:30)
[2018-09-12] MEDS: AMOXICILLIN/CLAVULANATE K 500 MG TAB PO SCH ×2 (08:28→17:30)
[2018-09-12] MEDS: PREDNISONE 5 MG TAB PO SCH (08:28)
[2018-09-12] MEDS: METOPROLOL SUCCINATE 50 MG TAB XL PO SCH ×2 (08:31→17:30)
[2018-09-12] MEDS: NIFEDIPINE CR 30 MG TAB PO SCH (08:31)
[2018-09-12] MEDS: INSULIN GLARGINE 100 UNITS/ML VIAL SQ SCH (09:02)
--- NOTE | 2018-09-12 16:11 | Progress Note ---
DATE: 09/12/2018 SUBJECTIVE: The patient seen at bedside, accompanied by . Doing better. Decreased pain to the right lower extremity. OBJECTIVE: VITALS SIGNS: Afebrile, pulse rate 62, respirations 18, blood pressure 141/64, O2 saturation 94%. EXTREMITIES: Dry gangrenous changes noted to the forth digit of right foot with multiple grade 3 ulcerations to the lateral aspect of third digit right. Decreased cellulitis. Skin temperature warm to touch. LABORATORY DATA: White blood cell count of 7.6, hemoglobin 11.4, platelet count 271. ASSESSMENT: Dry gangrene, cellulitis with grade 3 ulcers with the third toe getting somewhat better. PLAN: We will continue to let the foot demarcate. Definitive procedure will be done on Tuesday morning. Definitive procedure will be discussed on depending on how foot is looking. We will continue local wound care and IV antibiotics and offloading for now. ANGELA Barrera/DULCE /[id number]
[2018-09-12] MEDS: ENOXAPARIN SOD INJ 40 MG/0.4 ML SYR SC SCH (17:30)
--- NOTE | 2018-09-12 18:52 | NUR ---
PATIENT IS RESTING IN BED- IN STABLE CONDITION WITH NO S/S OF RESPIRATORY DISTRESS. NO PAIN VOICED. DRESSING TO RIGHT FOOT IS DRY AND INTACT. PATIENT REFUSED BED ALARM. CALL LIGHT IS WITHIN REACH, INSTRUCTED TO CALL FOR ASSISTANCE NEEDED. REPORT GIVEN TO ONCOMING NURSE.
[2018-09-12] MEDS: PRAVASTATIN 20 MG TAB PO SCH (20:36)
[2018-09-12] MEDS: CLOPIDOGREL BISULFATE 75 MG TAB PO SCH (20:36)
--- NOTE | 2018-09-12 22:57 | Progress Note ---
DATE: 09/12/2018 CARDIOLOGY PROGRESS NOTE SUBJECTIVE: Denies chest pain or shortness of breath. No new complaints today. OBJECTIVE: VITAL SIGNS: Temperature 98.9, heart rate 97, blood pressure 141/64, respiratory rate 18, and O2 saturation 94%. GENERAL: In no acute distress. Alert. NECK: No JVD. CHEST: Clear to auscultation. CARDIOVASCULAR: Regular rate and rhythm. Normal S1 and S2. No S3 or S4. ABDOMEN: Soft. EXTREMITIES: Trace edema. The 4th and 3rd right toes with gangrenous and pregangrenous changes respectively. CARDIOVASCULAR MEDICATIONS: Reviewed, on prednisone, metoprolol, aspirin, cyclosporine, pravastatin, clopidogrel, Lovenox 40 mg subcu daily. STUDIES: Reviewed. Creatinine 0.8, hemoglobin 11.4, and platelets 271. INR 0.9. ASSESSMENT: 1. Peripheral vascular disease, status post right anterior tibial CSI atherectomy and percutaneous transluminal angioplasty in a patient with gangrene of the 4th right toe and 3rd toe eschar, awaiting demarcation. 2. Chronic kidney disease, status post renal transplant, on immunosuppressive therapy. 3. Diabetes mellitus. 4. Hypertension. 5. Dyslipidemia. RECOMMENDATIONS: 1. Await demarcation for a level of amputation as per Podiatry. 2. Continue dual antiplatelet therapy. I appreciate input from Podiatry regarding coordination of care. 3. Continue beta-albertina. 4. Continue rest of cardiovascular medications. MD MIRELLA Bates/DULCE /[id number]
[2018-09-13] VITALS (7 sets, daily range): BP systolic 146–180; BP diastolic 67–88
[2018-09-13 06:44] LABS: BASOPHILS % 0.4 % (0.0-1.0); EOSINOPHILS # (AUTO) 0.1 (0.0-0.4); EOSINOPHILS % 1.2 % (0.0-6.0); HEMOGLOBIN 11.4 g/dL (14.0-18.0); LYMPHOCYTES % 13.3 % (18.0-39.1); MEAN CORPUSCULAR HEMOGLOBIN 28.2 pg (28-32); MEAN CORPUSCULAR HGB CONC 33.5 g/dL (31-35); MEAN CORPUSCULAR VOLUME 84.2 fL (81-99); MONOCYTES # (AUTO) 1.1 (0.2-0.8); MONOCYTES % 14.7 % (4.4-11.3); NEUTROPHILS # (AUTO) 5.3 (2.1-6.9); NEUTROPHILS % 69.6 % (38.7-80.0); PLATELET COUNT 284 x10e3/uL (140-360); RED BLOOD COUNT 4.04 x10e6/uL (4.3-5.7); RED CELL DISTRIBUTION WIDTH 13.2 % (11.7-14.4)
[2018-09-13 07:26] LABS: ALANINE AMINOTRANSFERASE 18 IU/L (0-55); ALBUMIN 2.7 g/dL (3.5-5.0); ALBUMIN/GLOBULIN RATIO 0.7 (0.8-2.0); ALKALINE PHOSPHATASE 90 IU/L (40-150); ANION GAP 11.6 mmol/L (8-16); BLOOD UREA NITROGEN 21 mg/dL (7-26); BUN/CREATININE RATIO 24 (6-25); CALCIUM 8.9 mg/dL (8.4-10.2); CARBON DIOXIDE 23 mmol/L (22-29); CHLORIDE 106 mmol/L (98-107); CREATININE, SERUM 0.88 mg/dL (0.72-1.25); EST GLOMERULAR FILTRATION RATE > 60 ML/MIN (60-); GLUCOSE 73 mg/dL (74-118); POTASSIUM 3.6 mmol/L (3.5-5.1); SODIUM 137 mmol/L (136-145)
[2018-09-13] MEDS: INSULIN REGULAR, HUMAN 100 UNIT/1 ML 3ML VIAL SQ SCH ×4 (07:30→20:44)
--- NOTE | 2018-09-13 07:30 | NUR ---
pt up in bed awake,denies pain at this time,drsg to foot cd&i
[2018-09-13] MEDS: PREDNISONE 5 MG TAB PO SCH (08:21)
[2018-09-13] MEDS: NON-FORMULARY MEDICATION (Sirolimus (Rapamune) 1 MG) PO SCH (08:21)
[2018-09-13] MEDS: DOXYCYCLINE HYCLATE TABLET 100 MG TAB PO SCH ×2 (08:21→17:00)
[2018-09-13] MEDS: CALCIUM CARBONATE 500 MG CHEWABLE TABS PO SCH (08:21)
[2018-09-13] MEDS: CLOPIDOGREL BISULFATE 75 MG TAB PO SCH (08:21)
[2018-09-13] MEDS: CYCLOSPORINE 25 MG CAP PO SCH ×2 (08:21→17:00)
[2018-09-13] MEDS: AMOXICILLIN/CLAVULANATE K 500 MG TAB PO SCH ×2 (08:21→17:00)
[2018-09-13] MEDS: OMEGA 3 POLYUNSAT FATTY ACIDS 1000 MG SOFTGEL PO SCH ×2 (08:21→17:00)
[2018-09-13] MEDS: ASPIRIN 81 MG CHEW TAB PO SCH (08:21)
[2018-09-13] MEDS: CHOLECALCIFEROL 1,000 UNIT TAB PO SCH (08:21)
[2018-09-13] MEDS: FAMOTIDINE 20 MG TAB PO SCH (08:21)
[2018-09-13] MEDS: METOPROLOL SUCCINATE 50 MG TAB XL PO SCH ×2 (08:24→17:00)
[2018-09-13] MEDS: NIFEDIPINE CR 30 MG TAB PO SCH (08:24)
[2018-09-13] MEDS: INSULIN GLARGINE 100 UNITS/ML VIAL SQ SCH (08:26)
--- NOTE | 2018-09-13 12:30 | NUR ---
CM SPOKE TO PATIENT AT BEDSIDE REGARDING IMM LETTER. IMM LETTER GIVEN WITH EXPLANATION. ORIGINAL SIGNED AND PLACED IN CHART; COPY OF ORIGINAL DOCUMENT GIVEN TO PATIENT AT BEDSIDE AND PLACED IN CARE TRANSITION FOLDER. CM CONTACT INFORMATION GIVEN TO PATIENT FOR ANY NEEDS OR CONCERNS. PATIENT WITH NO FURTHER QUESTIONS. LIFE INSURANCE UNDERWRITER- CHRISTIANO [id number]
[2018-09-13] MEDS: OLOPATADINE 5 ML BTL OP SCH ×2 (12:32→17:00)
--- NOTE | 2018-09-13 13:05 | Progress Note ---
DATE: 09/13/2018 SUBJECTIVE: The patient seen at bedside, doing better. Decreased pain to the right lower extremity. OBJECTIVE: VITALS SIGNS: Afebrile, pulse rate 64, respirations 20, blood pressure 151/61, O2 saturation 96%. EXTREMITIES: The patient shows dry gangrenous changes to the 4th digit of right foot, grade 3 ulcer in medial aspect of 3rd digit right with decreased cellulitis. LABORATORY DATA: Noted white blood cell count 7.6, hemoglobin 11.4, hematocrit 34.0 with a platelet count of 284. Has a blood glucose of 85 with an INR of 0.93. ASSESSMENT: Cellulitis, dry gangrene with grade 3 ulcer of 3rd digit, right foot with peripheral arterial disease. PLAN: We will continue to let the foot demarcate. Definitive procedure will be done on Tuesday morning. Continue IV antibiotics, local wound care. Continue offloading. ANGELA Barrera/DULCE /[id number]
--- NOTE | 2018-09-13 16:24 | NUR ---
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 PMH: CAD, DM, HTN, CKD Ht: 65in Wt: 163.38lb; 175lb BMI: 27.2kg/m2 IBW: 136lb RD Assessment: (09/13) Pt was discussed during AM rounds. Currently on PO abx. Planned surgery for R foot on this Tuesday. Visited pt in the room. Pt reported good appetite with 75-100% meal intake. No GI complains noted. Will continue to monitor and follow. (09/06) Chart reviewed. Labs and meds reviewed. 78yo M, who came in with failed outpatient treatment for right foot infected diabetic ulcer. 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 Pt denied chewing/swallowing problems and nausea/vomiting. Pt was eating well with 75-100% meal intake since admission. Will cont to monitor. Please consult as needed. Current Diet: ADA diet Malnutrition Evaluation (09/06/2018) The patient does not meet criteria for a specified degree of malnutrition at this time. Will re-evaluate at follow-up as appropriate. Diet Education Needs Assessment: Diet education not indicated. Nutrition Care Level: low Signed: Fern Hahn, , RD, LD
[2018-09-13] MEDS: ENOXAPARIN SOD INJ 40 MG/0.4 ML SYR SC SCH (17:00)
[2018-09-13] MEDS: DOCUSATE SODIUM 100 MG CAP PO SCH (17:00)
--- NOTE | 2018-09-13 17:18 | NUR ---
pt up in bed ,deiespain,no distress noted
--- NOTE | 2018-09-13 18:56 | Progress Note ---
DATE: 09/13/2018 Cardiology Progress Note SUBJECTIVE: No complaints today. OBJECTIVE: VITAL SIGNS: Temperature 97.1, heart rate 64, blood pressure 151/69, respiratory rate 20, and O2 saturation 96%. BMI is 29.1. GENERAL: In no acute distress, alert. NECK: No JVD. CHEST: Clear to auscultation. CARDIOVASCULAR: Regular rate and rhythm. Normal S1, S2. ABDOMEN: Soft, nontender. EXTREMITIES: No edema with 4th right toe gangrene and 3rd right toe lateral aspect black eschar. MEDICATIONS: Cardiovascular medications reviewed. Prednisone 5 mg daily, metoprolol succinate 100 mg b.i.d., cyclosporine 50 and 25 mg daily, nifedipine 90 mg daily, aspirin 81 mg daily, pravastatin 10 mg at bedtime, Lovenox 40 mg subcu daily, and clopidogrel 75 mg daily. LABORATORY DATA: Studies reviewed. Creatinine 0.8. White blood cell count 7.6, hemoglobin 11.4, and platelets 284. INR 0.9. ASSESSMENT: 1. Chronic kidney disease status post kidney transplant recipient status, on immunosuppressive therapy. 2. Peripheral vascular disease. 3. Gangrene of 4th right toe and eschar of 3rd toe. 4. Hypertension. 5. Diabetes mellitus. 6. Dyslipidemia. RECOMMENDATIONS: 1. Continue current cardiovascular medications. 2. Awaiting demarcation, possible limited amputation by Podiatry some point this week. MD HoV/MODL /[id number]
[2018-09-13] MEDS: PRAVASTATIN 20 MG TAB PO SCH (21:54)
[2018-09-14] VITALS (7 sets, daily range): BP systolic 140–161; BP diastolic 63–79
[2018-09-14] MEDS: HYDROCODONE/APAP 5MG-325MG TAB PO PRN (00:33)
--- NOTE | 2018-09-14 03:39 | NUR ---
09/13/2018: 1900: Received patient from day nurse, patient is alert and oriented x3. patient is currently on room air, saturating in the 90s, patient informed about change of shift and the plan of care for the night verbalized understanding. safety and fall precautions maintained as per hospital protocol: bed in lowest position and locked, needed items beside bed and call cordero placed close to patient, patient instructed to use it to call nurses for any assistance needed, patient verbalized understanding. 2200: patient rounded and stable. 09/14/2018: 0000: patient rounded and stable, patient sugar was checked, patient was noticed to be sweating, sugar was checked and it was 65, patient is alert and oriented and was given juice to drink and the reading came up to above 100, patient bp was noticed to be above 170/80, md SOUSA, the lockstitch waistline joiner was called and he ordered bp meds and also increased metoprolol to 150mg bid, bp rechecked was 150/72, meds were held at this time, will repeat at 4am, 0200: patient rounded and stable.
--- NOTE | 2018-09-14 06:58 | NUR ---
patient endorsed to next shift for continuity of care.
[2018-09-14] MEDS: INSULIN REGULAR, HUMAN 100 UNIT/1 ML 3ML VIAL SQ SCH ×4 (07:30→20:28)
--- NOTE | 2018-09-14 07:30 | NUR ---
pt up in bed awake ,denies pain,o2 [address]l [address].
[2018-09-14] MEDS: PREDNISONE 5 MG TAB PO SCH (08:18)
[2018-09-14] MEDS: CYCLOSPORINE 25 MG CAP PO SCH ×2 (08:18→17:00)
[2018-09-14] MEDS: AMOXICILLIN/CLAVULANATE K 500 MG TAB PO SCH ×2 (08:18→17:00)
[2018-09-14] MEDS: ASPIRIN 81 MG CHEW TAB PO SCH (08:18)
[2018-09-14] MEDS: CLOPIDOGREL BISULFATE 75 MG TAB PO SCH (08:18)
[2018-09-14] MEDS: OMEGA 3 POLYUNSAT FATTY ACIDS 1000 MG SOFTGEL PO SCH ×2 (08:18→17:00)
[2018-09-14] MEDS: FAMOTIDINE 20 MG TAB PO SCH (08:18)
[2018-09-14] MEDS: DOCUSATE SODIUM 100 MG CAP PO SCH ×2 (08:18→17:00)
[2018-09-14] MEDS: NON-FORMULARY MEDICATION (Sirolimus (Rapamune) 1 MG) PO SCH (08:18)
[2018-09-14] MEDS: METOPROLOL SUCCINATE 50 MG TAB XL PO SCH ×2 (08:19→17:00)
[2018-09-14] MEDS: NIFEDIPINE CR 30 MG TAB PO SCH (08:19)
[2018-09-14] MEDS: DOXYCYCLINE HYCLATE TABLET 100 MG TAB PO SCH ×2 (08:21→17:00)
[2018-09-14] MEDS: INSULIN GLARGINE 100 UNITS/ML VIAL SQ SCH (08:21)
[2018-09-14] MEDS: CALCIUM CARBONATE 500 MG CHEWABLE TABS PO SCH (08:21)
[2018-09-14] MEDS: CHOLECALCIFEROL 1,000 UNIT TAB PO SCH (08:21)
--- NOTE | 2018-09-14 08:45 | NUR ---
DR DAVE HERE
[2018-09-14] MEDS: OLOPATADINE 5 ML BTL OP SCH ×2 (10:00→17:00)
--- NOTE | 2018-09-14 11:56 | NUR ---
PICC TEAM HERE ,MIDLINE PLACED ORDERED
[2018-09-14] MEDS ORDERED: VANCOMYCIN 500MG/NS 0.9% 100ML 100 ML IV SCH (12:00)
[2018-09-14] MEDS ORDERED: PIPERACILLIN/TAZO 2.25 GM 50 ML IV SCH (14:00)
--- NOTE | 2018-09-14 15:45 | NUR ---
LANGUAGE LINE USED FOR CONSENT
--- NOTE | 2018-09-14 16:35 | Progress Note ---
DATE: 09/14/2018 SUBJECTIVE: The patient seen at bedside, ready for surgical intervention. He has decreased pain to the right foot. OBJECTIVE: VITALS SIGNS: Afebrile, pulse rate 62, respirations 20, blood pressure 147/67, O2 saturation 94%. EXTREMITIES: Ulceration to the lateral aspect of the third digit right foot seems to be getting a little better. Skin temperature to the third toe is better. Has gangrenous changes noted to the fourth digit right foot, some foul smell present with cellulitis at the proximal aspect of the gangrenous changes and also at the metatarsophalangeal joint. LABORATORY DATA: Noted. White blood cell count 7.6, hemoglobin 11.4, hematocrit 34.0 with a platelet count of 284. Has an INR of 0.93. ASSESSMENT: Cellulitis, abscess, gangrene with grade 3 ulcer to lateral aspect of third digit, right. PLAN: The patient will be taken for surgical intervention. The patient does not want to have his third toe amputated. He was instructed we will try to salvage it, but no guarantees can be given. Proposed surgery would be I and D of right foot, amputation of fourth digit right with flap closure and possible amputation of the third digit depending on the intraoperative findings. The patient will be kept n.p.o. after midnight tonight. ANGELA Barrera/DULCE /[id number]
--- NOTE | 2018-09-14 17:57 | NUR ---
PT UP IN BED NO DISTRESS NOTED DENIES PAIN
--- NOTE | 2018-09-14 19:15 | NUR ---
patient received awake, alert, lying quietly in bed. no c/o pain noted. pm assessment complete. patient instructed to call for assistance when needed.
--- NOTE | 2018-09-14 20:00 | NUR ---
clean wet to dry betadine dressing to right foot applied at this time.
[2018-09-14] MEDS: PRAVASTATIN 20 MG TAB PO SCH (20:12)
[2018-09-15] VITALS (7 sets, daily range): BP systolic 148–172; BP diastolic 68–81
--- NOTE | 2018-09-15 05:03 | Progress Note ---
DATE: 09/14/2018 Cardiology Progress Note SUBJECTIVE: Denies chest pain or shortness of breath. No complaints today. Possible foot surgery soon this week. OBJECTIVE: VITAL SIGNS: Temperature 97.4, heart rate 63, blood pressure 145/63, respiratory rate 20, O2 saturation 96%, BMI is 29.2. GENERAL: In no acute distress, alert. NECK: No JVD. CHEST: Clear to auscultation. CARDIOVASCULAR: Regular rate and rhythm. Normal S1 and S2. No S3 or S4. ABDOMEN: Soft, nontender. EXTREMITIES: Trace edema. Right foot covered with dressings. CARDIOVASCULAR MEDICATIONS: Reviewed. Metoprolol succinate 150 mg b.i.d., nifedipine 90 mg daily, aspirin 81 mg daily, hydralazine 10 mg q.6 hours, pravastatin 10 mg at bedtime, Lovenox 40 mg daily, clopidogrel 75 mg daily, prednisone, cyclosporine, and sirolimus. LABORATORY DATA: Studies reviewed. Sodium 137, potassium 3.6, chloride 106, bicarbonate 23, BUN 21, creatinine 0.73. White blood cells 9.6, hemoglobin 11.4, platelets 284. INR 0.9. AST 15, ALT 18, total bilirubin 0.3, alkaline phosphatase 90. ASSESSMENT: 1. Peripheral vascular disease, status post right anterior tibial revascularization pending demarcation of 3rd toe and with gangrene of 4th toe, possible amputation of digits soon. 2. Diabetes mellitus. 3. Chronic kidney disease, status post renal transplant recipient, on immunosuppressive therapy. 4. Hypertension. RECOMMENDATIONS: 1. Continue current cardiovascular medications. 2. We will follow throughout the perioperative period. Please call with any questions. MD MIRELLA Bates/MODL /[id number]
[2018-09-15] MEDS ORDERED: MUPIROCIN 2% OINT 22 GM TUBE ONE (06:57)
[2018-09-15] MEDS ORDERED: BUPIVACAINE HCL 0.5% INJ 30 ML VIAL INJ ONE (06:57)
[2018-09-15] MEDS ORDERED: LIDOCAINE HCL 1% LOCAL INJ 20 ML VIAL ONE (06:57)
[2018-09-15] MEDS ORDERED: BETAMETHASONE DISODIUM PHOS 6 MG/ML VIAL ONE (06:57)
[2018-09-15] MEDS ORDERED: BACITRACIN 50,000 UNIT VIAL ONE (06:58)
--- NOTE | 2018-09-15 07:00 | NUR ---
patient scheduled for surgery this am. plavix and aspirin not on hold for surgery this am. call placed to dr. dubois re: these medications. call received from . no medication changes noted at this time.
[2018-09-15] MEDS: INSULIN REGULAR, HUMAN 100 UNIT/1 ML 3ML VIAL SQ SCH ×4 (07:30→20:29)
[2018-09-15] MEDS ORDERED: FENTANYL CITRATE/PF 100MCG/2 ML INJ ONE (08:28)
[2018-09-15] MEDS: ASPIRIN 81 MG CHEW TAB PO SCH (09:00)
[2018-09-15] MEDS: NON-FORMULARY MEDICATION (Sirolimus (Rapamune) 1 MG) PO SCH (09:00)
[2018-09-15] MEDS: DOCUSATE SODIUM 100 MG CAP PO SCH ×2 (09:00→17:00)
[2018-09-15] MEDS: CLOPIDOGREL BISULFATE 75 MG TAB PO SCH (09:00)
--- NOTE | 2018-09-15 09:45 | NUR ---
PATIENT BACK TO UNIT FROM OR. REPORT RECEIVED FROM GERARDO EPPS. PATIENT HAD A RIGHT 4TH TOE AMPUTATION. PATIENT ALERT AND VERBALLY RESPONSIVE. DRESSING DRY AND INTACT TO RIGHT FOOT, ABLE TO WIGGLE TOES. DENIED PAIN AT THIS TIME. BED IN LOWER POSITION, CALL LIGHT AT REACH. FAMILY AT BED SIDE. V/S 97.4-66-18-154/71 AND 92% ON RA.
--- NOTE | 2018-09-15 10:24 | Diagnostic Imaging Report ---
Exam: Right foot radiographs-2 views Clinical History: Status post fourth toe amputation Comparison: Right foot radiographs 09/02/2018 Findings: Per clinical history, the fourth digit has been amputated. The site is poorly evaluated due to obliquity. There is subcutaneous gas at the amputation site with linear hyperdensity. Diffuse atherosclerotic vascular calcifications. No evidence of acute fracture or malalignment. There is deformity of the distal phalanx of the first toe, which may reflect sequela of prior trauma. Impression: Per history, the fourth digit has been amputated. The site is poorly evaluated due to obliquity. There is subcutaneous gas at the amputation site, which may reflect recent postsurgical change. Hyperdensity at the amputation site could represent overlying material or residual bone and can be correlated with history and repeat radiographs if clinically indicated. Signed by: Dr. En Smith MD on 09/15/2018 10:20 AM
[2018-09-15] MEDS: OLOPATADINE 5 ML BTL OP SCH ×2 (10:30→17:37)
[2018-09-15] MEDS: CYCLOSPORINE 25 MG CAP PO SCH ×2 (11:21→17:37)
[2018-09-15] MEDS: AMOXICILLIN/CLAVULANATE K 500 MG TAB PO SCH (11:21)
[2018-09-15] MEDS: FAMOTIDINE 20 MG TAB PO SCH (11:21)
[2018-09-15] MEDS: OMEGA 3 POLYUNSAT FATTY ACIDS 1000 MG SOFTGEL PO SCH ×2 (11:21→17:37)
[2018-09-15] MEDS: PREDNISONE 5 MG TAB PO SCH (11:21)
[2018-09-15] MEDS: NIFEDIPINE CR 30 MG TAB PO SCH (11:22)
[2018-09-15] MEDS: CALCIUM CARBONATE 500 MG CHEWABLE TABS PO SCH (11:23)
[2018-09-15] MEDS: CHOLECALCIFEROL 1,000 UNIT TAB PO SCH (11:23)
[2018-09-15] MEDS: METOPROLOL SUCCINATE 50 MG TAB XL PO SCH ×2 (11:23→17:37)
[2018-09-15] MEDS: DOXYCYCLINE HYCLATE TABLET 100 MG TAB PO SCH ×2 (11:23→17:37)
--- NOTE | 2018-09-15 11:30 | NUR ---
DR SOUSA IN TO SEE PATIENT. NOTIFIED OF ASPIRIN AND PLAVIX HELD POST SURGERY. NO NEW ORDER RECEIVED.
[2018-09-15] MEDS: INSULIN GLARGINE 100 UNITS/ML VIAL SQ SCH (11:36)
--- NOTE | 2018-09-15 12:45 | NUR ---
PATIENT SITTING UP IN BED EATING LUNCH. SURGICAL DRESSING FALLING OFF, NO BLEEDING OBSERVED. DRESSING REINFORCED WITH KERLIX. BED IN LOWER POSITION, CALL LIGHT AT REACH.
[2018-09-15] MEDS ORDERED: LIDOCAINE HCL 2% LOCAL INJ 5 ML SDV VIAL INJ ONE (14:12)
[2018-09-15] MEDS ORDERED: PROPOFOL IV EMULSION 10 MG/ML 20 ML VIAL ONE (14:12)
[2018-09-15] MEDS ORDERED: SEVOFLURANE INHAL SOLN 250 ML PEN BTL ONE (14:12)
[2018-09-15] MEDS ORDERED: ONDANSETRON HCL INJ 2MG/ML 2ML 2 MG/ML VIAL ONE (14:12)
--- NOTE | 2018-09-15 14:51 | Progress Note ---
DATE: 09/15/2018 Cardiology Progress Note SUBJECTIVE: No complaints. OBJECTIVE: VITAL SIGNS: Temperature 97.4, heart rate 66, blood pressure 148/68, respiratory rate 18, O2 saturation 92%. GENERAL: No acute distress, alert. NECK: No JVD. CHEST: Clear to auscultation. CARDIOVASCULAR: Regular rate and rhythm. Normal S1 and S2. No S3 or S4. ABDOMEN: Soft. EXTREMITIES: Right foot covered with dressings. LABORATORY DATA: Sodium 137, potassium 3.6, chloride 106, bicarbonate 23, BUN 21, creatinine 0.8, glucose 73. White blood cells 7.6, hemoglobin 11.4, platelets 284. INR 0.9. MEDICATIONS: Cardiovascular medications reviewed. Metoprolol succinate 150 mg b.i.d., nifedipine 90 mg daily, aspirin 81 mg daily, hydralazine 10 mg q.6 hours, pravastatin 10 mg at bedtime, Lovenox 40 mg subcu daily, clopidogrel 75 mg daily. Aspirin and Plavix on hold today, status post amputation of fourth right digit of lower extremities. ASSESSMENT: 1. Peripheral arterial disease, status post anterior tibial revascularization post amputation. 2. Diabetes mellitus. 3. Hypertension. 4. Dyslipidemia. 5. Chronic kidney disease, on immunosuppressants for transplant status. RECOMMENDATIONS: Continue current cardiovascular medications. MD MIRELLA Bates/DULCE /[id number]
[2018-09-15] MEDS ORDERED: KETAMINE HCL INJ 50 MG/ML 10 ML VIAL ONE (14:58)
[2018-09-15] MEDS ORDERED: MIDAZOLAM HCL 2 MG/2 ML VIAL ONE (14:58)
--- NOTE | 2018-09-15 15:30 | Operative Report ---
DATE OF PROCEDURE: 09/15/2018 SURGEON: Bereket Beltre DPM PREOPERATIVE DIAGNOSES: 1. Abscess, right foot. 2. Gangrene, fourth digit, right foot. 3. Grade 4 ulcer, right foot. POSTOPERATIVE DIAGNOSES: 1. Abscess, right foot. 2. Gangrene, fourth digit, right foot. 3. Grade 4 ulcer, right foot. OPERATIVE PROCEDURE: 1. I and D of abscess, right foot. 2. Amputation, fourth digit, right foot. 3. Rotational flap closure, right foot. ANESTHESIA: General. HEMOSTASIS: None. PROCEDURE IN DETAIL: The patient was taken into the operating room and placed on the operating table in supine position. Following induction of general anesthesia by the anesthesiologist, the right lower extremity was then prepped and draped in the usual aseptic manner. The following procedure was then performed. PROCEDURE #1: I and D of abscess, right foot. Attention was directed to the dorsal aspect of the toe overlying the proximal interphalangeal joint, where a curvilinear incision was performed. The incision was deepened down to bone. Abscess was encountered. Some purulent drainage was obtained and cultured for aerobic and anaerobic growth. Secondary to necrosis, the incision was then lengthened more proximally overlying the metatarsophalangeal joint. PROCEDURE #2: The fourth toe was then amputated at the level of the metatarsophalangeal joint and sent for pathological analysis. All areas were then copiously flushed with antibiotic solution and suctioned. PROCEDURE #3: Rotational flap closure. The incision was then lengthened more proximally, dorsally, plantarly and laterally to create a plantar flap to allow for closure with minimal skin tension. The flap was then dorsally displaced and utilizing 4-0 nylon in a horizontal mattress-type fashion after properly and copiously flushing the area, the flap was closed. Then approximately 5 mL of 0.5% plain Marcaine plus 5 mL of 1% Xylocaine plain were used to achieve local anesthesia both on surgical area. Sterile dressing was applied. The patient was then transferred from the OR to recovery room with vital signs stable and neurovascular status is intact. Minimal bleeding was obtained. The patient will remain in the hospital for a couple of more days for IV antibiotics. The patient understands no warrantees or guarantees can be given, may need further surgery. We will continue to treat the third toe ulcerations with Bactroban ointment and antibiotics; if not responsive, may end up needing surgical intervention for that area. ANGELA Barrera/MODL /[id number]
--- NOTE | 2018-09-15 16:15 | NUR ---
IN BED TALKING TO FAMILY MEMBERS VISITING. DRESSING DRY AND INTACT TO RIGHT FOOT. CALL LIGHT AT REACH.
--- NOTE | 2018-09-15 16:52 | NUR ---
REQUESTED LTAC FROM DR SHETTY AWAIT HIM TO ROUND
[2018-09-15] MEDS ORDERED: VANCOMYCIN 500MG/NS 0.9% 100ML 100 ML IV SCH (17:00)
[2018-09-15] MEDS: AZTREONAM 1 GM/NS 50 ML 50 ML IV SCH (18:44)
[2018-09-15] MEDS: HYDROCODONE/APAP 5MG-325MG TAB PO PRN (18:58)
--- NOTE | 2018-09-15 19:00 | NUR ---
patient received awake, alert, lying quietly in bed. patient medicated for pain by day shift nurse at 1858. pm assessment complete. dressing to right foot c,d,i. family noted at the bedside. patient/family instructed to call for assistance when needed.
--- NOTE | 2018-09-15 20:00 | NUR ---
patient s/p incision and drainage right foot and amputation of fourth digit right foot with flap closure today. dressing remains c,d,i. no bleeding noted.
[2018-09-15] MEDS: PRAVASTATIN 20 MG TAB PO SCH (21:00)
[2018-09-15] MEDS: VANCOMYCIN 500MG/NS 0.9% 100ML 100 ML IV SCH (21:00)
[2018-09-16] VITALS: BP 168/74
[2018-09-16] MEDS: HYDRALAZINE HCL 20 MG/ML VIAL IV PRN ×2 (01:22→11:30)
--- NOTE | 2018-09-16 01:22 | NUR ---
patient medicated with hydralazine 10 mg ivp for bp 168/74. will continue to monitor.
[2018-09-16] MEDS: HYDROCODONE/APAP 5MG-325MG TAB PO PRN (03:30)
--- NOTE | 2018-09-16 03:30 | NUR ---
patient medicated with norco 5/325 mg po for c/o right foot pain 03/20. dressing to right foot remains c,d,i. will continue to monitor.
[2018-09-16 04:00] VITALS: BP 162/68
[2018-09-16] MEDS: AZTREONAM 1 GM/NS 50 ML 50 ML IV SCH (04:26)
--- NOTE | 2018-09-16 05:00 | NUR ---
patient appears to be resting quietly. no further c/o pain noted.
[2018-09-16 07:01] LABS: ANION GAP 12.9 mmol/L (8-16); CALCIUM 8.5 mg/dL (8.4-10.2); CARBON DIOXIDE 19 mmol/L (22-29); CHLORIDE 108 mmol/L (98-107); CREATININE, SERUM 0.78 mg/dL (0.72-1.25); EST GLOMERULAR FILTRATION RATE > 60 ML/MIN (60-); GLUCOSE 77 mg/dL (74-118); POTASSIUM 3.9 mmol/L (3.5-5.1); SODIUM 136 mmol/L (136-145)
[2018-09-16 07:10] VITALS: BP 145/67
--- NOTE | 2018-09-16 07:10 | NUR ---
PATIENT SITTING UP IN BED WATCHING TV, NO S/S OF DISTRESS NOTED. DRESSING DRY AND INTACT TO RIGHT FOOT. C/O CLOD, WARM BLANKET PROVIDED. BED IN LOWER POSITION, CALL LIGHT AT REACH.
[2018-09-16 07:11] LABS: BLOOD UREA NITROGEN 16 mg/dL (7-26); BUN/CREATININE RATIO 21 (6-25)
[2018-09-16 07:21] VITALS: BP 145/67
[2018-09-16] MEDS: INSULIN REGULAR, HUMAN 100 UNIT/1 ML 3ML VIAL SQ SCH ×2 (07:30→11:30)
[2018-09-16] MEDS: INSULIN GLARGINE 100 UNITS/ML VIAL SQ SCH (09:00)
[2018-09-16] MEDS: NON-FORMULARY MEDICATION (Sirolimus (Rapamune) 1 MG) PO SCH (09:00)
[2018-09-16] MEDS: VANCOMYCIN 500MG/NS 0.9% 100ML 100 ML IV SCH (09:00)
[2018-09-16 09:27] LABS: BASOPHILS # (AUTO) 0.1 (0.0-0.1); BASOPHILS % 0.5 % (0.0-1.0); EOSINOPHILS # (AUTO) 0.1 (0.0-0.4); HEMATOCRIT 35.6 % (38.2-49.6); HEMOGLOBIN 12.1 g/dL (14.0-18.0); LYMPHOCYTES # (AUTO) 0.6 (1.0-3.2); LYMPHOCYTES % 6.2 % (18.0-39.1); MEAN CORPUSCULAR HEMOGLOBIN 28.3 pg (28-32); MEAN CORPUSCULAR VOLUME 83.2 fL (81-99); MONOCYTES # (AUTO) 1.5 (0.2-0.8); MONOCYTES % 14.6 % (4.4-11.3); NEUTROPHILS % 76.7 % (38.7-80.0); PLATELET COUNT 277 x10e3/uL (140-360); RED BLOOD COUNT 4.28 x10e6/uL (4.3-5.7); RED CELL DISTRIBUTION WIDTH 13.6 % (11.7-14.4)
[2018-09-16] MEDS: OLOPATADINE 5 ML BTL OP SCH (09:38)
[2018-09-16] MEDS: ASPIRIN 81 MG CHEW TAB PO SCH (09:38)
[2018-09-16] MEDS: DOCUSATE SODIUM 100 MG CAP PO SCH (09:38)
[2018-09-16] MEDS: PREDNISONE 5 MG TAB PO SCH (09:39)
[2018-09-16] MEDS: NIFEDIPINE CR 30 MG TAB PO SCH (09:39)
[2018-09-16] MEDS: CHOLECALCIFEROL 1,000 UNIT TAB PO SCH (09:39)
[2018-09-16] MEDS: DOXYCYCLINE HYCLATE TABLET 100 MG TAB PO SCH (09:39)
[2018-09-16] MEDS: FAMOTIDINE 20 MG TAB PO SCH (09:39)
[2018-09-16] MEDS: CALCIUM CARBONATE 500 MG CHEWABLE TABS PO SCH (09:39)
[2018-09-16] MEDS: CLOPIDOGREL BISULFATE 75 MG TAB PO SCH (09:39)
[2018-09-16] MEDS: OMEGA 3 POLYUNSAT FATTY ACIDS 1000 MG SOFTGEL PO SCH (09:39)
[2018-09-16] MEDS: METOPROLOL SUCCINATE 50 MG TAB XL PO SCH (09:39)
[2018-09-16] MEDS: CYCLOSPORINE 25 MG CAP PO SCH (09:39)
[2018-09-16 11:00] VITALS: BP 181/72
[2018-09-16] MEDS ORDERED: CLINDAMYCIN HC150 MG PO (11:40)
[2018-09-16] MEDS ORDERED: CIPRO500 MG PO (11:40)
[2018-09-16] MEDS ORDERED: TYLENOL WITH C1 EACH PO (11:41)
[2018-09-16] MEDS ORDERED: ZOFRAN4 MG SL (11:42)
--- NOTE | 2018-09-16 12:07 | NUR ---
PATIENT NOTED WITH B/P OF 181/72. PRN HYDRALAZINE GIVEN. B/P RECHECKED WITH THE READING OF 140/68.
--- NOTE | 2018-09-16 12:20 | NUR ---
PATIENT DISCHARGED HOME. DISCHARGE INSTRUCTIONS, PRESCRIPTIONS, AND FOLLOW UP GIVEN TO PATIENT AND , THEY VERBALIZED UNDERSTANDING. MIDLINE TO RIGHT UPPER ARM REMOVED WITH TIP INTACT, PRESSURE APPLIED FOR 5 MINUTES. ALL PERSONAL ITEMS TAKEN WITH PATIENT. LEFT UNIT PER WHEEL CHAIR TO FRONT LOBBY IN STABLE CONDITION.
[2018-09-16 13:41] LABS: LYMPHOCYTES % (MANUAL) 6 % (19-48); MONOCYTES % (MANUAL) 17 % (3.4-9.0); NEUTROPHILS % (MANUAL) 77 % (40-74); PLATELET MORPHOLOGY COMMENT NORMAL
[2018-09-16 13:42] LABS: PLATELET ESTIMATE ADEQUATE; RBC MORPHOLOGY COMMENT NORMAL
--- NOTE | 2018-09-16 16:16 | Progress Note ---
DATE: 09/16/2018 SUBJECTIVE: The patient seen at bedside, ready to go home. Denies any history of fever, chills, nausea, or vomiting. OBJECTIVE: VITAL SIGNS: Afebrile. Vital signs are stable. EXTREMITIES: Right foot is looking well. The skin flap is showing some healing. Has grade 3 ulcerations to the lateral aspect of the third digit of right foot, healing slowly. ASSESSMENT: Multiple grade 3 ulcers of third digit of right foot, and status post amputation, I and D, flap closure of the fourth digit of right foot. PLAN: Okay to be discharged. Doxycycline prescription was given to be taken twice a day. The patient instructed to walk strictly with the aid of surgical shoe. Upon discharge today, he is to follow up sometime next week. The patient understands we will continue to treat the third toe conservatively, but there may be a chance for an amputation if not responsive. ANGELA Barrera/DULCE /[id number]
[2018-09-16] MEDS ORDERED: SODIUM BICARBONATE 650 MG TAB PO SCH (17:00)
--- NOTE | 2018-09-17 12:18 | Discharge Summary ---
CONSULTANTS: 1. Sushil Ramírez MD. 2. Bereket Beltre DPM. 3. Jaswinder Bell MD. FINAL DIAGNOSES: 1. Infected diabetic foot ulcer with ischemic 3rd and 4th toe. 2. Peripheral vascular disease, status post angiogram with intervention. 3. Status post amputation of the right 4th toe. 4. Baseline renal transplant. 5. Diabetes type 2, on insulin treatment. 6. Dyslipidemia. 7. Hypertension. 8. Anti-rejection medication. SUMMARY: A 78-year-old male with multiple medical problems, came in with right 3rd and 4th ischemic toes. The 4th ischemic toe was complete. Third ischemic toe was partial on the lateral side. The patient also had peripheral vascular disease. He has infected diabetic toe and foot ulcer. The patient was hospitalized for demarcation of the infection and ischemia. The patient is now status post surgical intervention done by Dr. Bereket Grant. The patient had incision and drainage of abscess in the right foot; amputation of the 4th toe, right foot; and rotation flap closure of the right foot. Procedures done on September 15, 2018. The area has good circulation now with surgical bleeding at the site on wound changes. Discussed with the patient at length with his family to translation. The patient has been cleared by Dr. Beltre to go home. At this time, he is stable. He will be discharged home. Resume home medication, except for Bactrim. The patient will take the following new medications: 1. Clindamycin 3 mg three times a day for seven days. 2. Cipro 5 mg b.i.d. for seven days. 3. Tylenol No. 3 as needed for pain. 4. Zofran ODT 4 mg sublingual p.r.n. for nausea and vomiting. The patient is stable. Follow up with Dr. Beltre as instructed and also continue with wound care as per instruction as well. The patient is stable, discharged home today. MD YOGI Campbell/MODL /[id number] cc: Jose Alejandro Helm MD
== END 2018-09-16 12:25 | disposition home or self-care (01) | DRG 271 ==
LOC: ER 18:25 → ERHOLD 21:43 → MED/SURG3 23:53
PROVIDERS: ADMIT Internal Medicine; ATTEND Internal Medicine
PROC: 04CP3ZZ Extirpation of Matter from Right Anterior Tibial Artery, Percutaneous Approach (ICD-10-PCS; 2018-09-04)
PROC: 047P3Z1 Dilation of Right Anterior Tibial Artery using Drug-Coated Balloon, Percutaneous Approach (ICD-10-PCS; 2018-09-04)
PROC: B41D1ZZ Fluoroscopy of Aorta and Bilateral Lower Extremity Arteries using Low Osmolar Contrast (ICD-10-PCS; 2018-09-04)
PROC: 02HV33Z Insertion of Infusion Device into Superior Vena Cava, Percutaneous Approach (ICD-10-PCS; principal; 2018-09-14)
PROC: 0Y6M0Z7 Detachment at Right Foot, Complete 4th Ray, Open Approach (ICD-10-PCS; 2018-09-15)
PROC: 0HXMXZZ Transfer Right Foot Skin, External Approach (ICD-10-PCS; 2018-09-15)
PROC: 0J9Q0ZX Drainage of Right Foot Subcutaneous Tissue and Fascia, Open Approach, Diagnostic (ICD-10-PCS; 2018-09-15)
DX: E11.52 Type 2 diabetes mellitus with diabetic peripheral angiopathy with gangrene (principal); Z94.0 Kidney transplant status; M86.8X7 Other osteomyelitis, ankle and foot; I96 Gangrene, not elsewhere classified; L97.526 Non-pressure chronic ulcer of other part of left foot with bone involvement without evidence of necrosis; E11.69 Type 2 diabetes mellitus with other specified complication; E11.621 Type 2 diabetes mellitus with foot ulcer; Z79.4 Long term (current) use of insulin; E11.42 Type 2 diabetes mellitus with diabetic polyneuropathy; E78.5 Hyperlipidemia, unspecified; Z79.899 Other long term (current) drug therapy; I12.9 Hypertensive chronic kidney disease with stage 1 through stage 4 chronic kidney disease, or unspecified chronic kidney disease; E11.22 Type 2 diabetes mellitus with diabetic chronic kidney disease; N18.3 Chronic kidney disease, stage 3 (moderate); L97.514 Non-pressure chronic ulcer of other part of right foot with necrosis of bone; D64.9 Anemia, unspecified; I25.10 Atherosclerotic heart disease of native coronary artery without angina pectoris
CPT/HCPCS: 36247; 36415; 37186; 37229; 71045; 71046; 71250; 75625; 75716; 80048; 80053; 80158; 80195; 80202; 82948; 83036; 83735; 84100; 84443; 85025; 85610; 85730; 87040; 87071; 87075; 87186; 87205; 88304; 88305; 88311; 93005; 93925; 96361; 96372; 99284; C1724; C1725; C1769; C1887; J0360; J0720; J1644; J1650; J1815; J1940; J2001; J2250; J2270; J2405; J2543; J3370; J7030; J7050; J7512; J7515; Q9967

== ENCOUNTER → 2018-10-20 | Day surgery (SDC) | payer MEDICARE ==
[2018-10-19 10:02] LABS: INR 0.88; PARTIAL THROMBOPLASTIN TIME 28.6 seconds (23.8-35.5); PROTHROMBIN TIME 12.4 seconds (11.9-14.5)
[2018-10-19 10:07] LABS: ANION GAP 12.9 mmol/L (8-16); BLOOD UREA NITROGEN 20 mg/dL (7-26); BUN/CREATININE RATIO 17 (6-25); CALCIUM 9.5 mg/dL (8.4-10.2); CARBON DIOXIDE 26 mmol/L (22-29); CHLORIDE 104 mmol/L (98-107); CREATININE, SERUM 1.15 mg/dL (0.72-1.25); EST GLOMERULAR FILTRATION RATE > 60 ML/MIN (60-); GLUCOSE 92 mg/dL (74-118); POTASSIUM 3.9 mmol/L (3.5-5.1); SODIUM 139 mmol/L (136-145)
[2018-10-19 10:32] LABS: BASOPHILS % 0.3 % (0.0-1.0); EOSINOPHILS # (AUTO) 0.1 (0.0-0.4); HEMATOCRIT 44.3 % (38.2-49.6); HEMOGLOBIN 14.6 g/dL (14.0-18.0); MEAN CORPUSCULAR HEMOGLOBIN 27.9 pg (28-32); MEAN CORPUSCULAR VOLUME 84.5 fL (81-99); MONOCYTES # (AUTO) 0.8 (0.2-0.8); MONOCYTES % 11.6 % (4.4-11.3); NEUTROPHILS # (AUTO) 5.2 (2.1-6.9); NEUTROPHILS % 72.4 % (38.7-80.0); PLATELET COUNT 228 x10e3/uL (140-360); RED BLOOD COUNT 5.24 x10e6/uL (4.3-5.7); RED CELL DISTRIBUTION WIDTH 13.1 % (11.7-14.4)
--- NOTE | 2018-10-19 11:11 | Diagnostic Imaging Report ---
EXAM: CHEST 2 VIEWS DATE: 10/19/2018 9:30 AM INDICATION: Preop, foot surgery COMPARISON: Chest x-ray, 09/10/2018 FINDINGS: Lines and tubes: None Heart size normal. Trace right pleural effusion has resolved, and left pleural effusion has improved. Minimal residual left lower lobe atelectasis. No acute consolidation or pneumothorax. Upper abdomen unremarkable. No acute bony abnormality. IMPRESSION: Improvement of pleural effusions since last exam. Mild residual basilar atelectasis. Signed by: Dr. Wade Oglesby M.D. on 10/19/2018 11:08 AM
[~2018-10-20] MED LIST changes: +BACITRACIN 50,000 UNIT VIAL ONE; +BETAMETHASONE DISODIUM PHOS 6 MG/ML VIAL ONE; +BUPIVACAINE HCL 0.5% INJ 30 ML VIAL INJ ONE; +CEFAZOLIN SOD 1 GM/NS 50ML 50 ML IV ONE; +CIPRO500 MG PO; +CLINDAMYCIN HC150 MG PO; +FENTANYL CITRATE/PF 100MCG/2 ML INJ ONE; +LEVEMIR100 UNIT/1 SC; +LIDOCAINE HCL 1% LOCAL INJ 20 ML VIAL ONE; +LIDOCAINE HCL 2% LOCAL INJ 5 ML SDV VIAL INJ ONE; +MUPIROCIN 2% OINT 22 GM TUBE ONE; -NOVOLOG100 UNIT/1; +NOVOLOG100 UNIT/1 SC; +ONDANSETRON HCL INJ 2MG/ML 2ML 2 MG/ML VIAL ONE; +PROPOFOL IV EMULSION 10 MG/ML 20 ML VIAL ONE; +SEVOFLURANE INHAL SOLN 250 ML PEN BTL ONE; +SULFAMETHOXAZO1 EAC1 PO; +TUMS200 MG PO; +TYLENOL WITH C1 EACH PO; +ZOFRAN4 MG SL
--- OUTSIDE RECORDS SUMMARY | 2018-10-20 05:18 | XMS REPORT ---
Author Author [facility] Address Unknown Phone Unavailable Care Team Providers Care Day Haul Youth Supervisor Name Role Phone FUENTES DAVE Unavailable Unavailable ED SHETTY Unavailable Unavailable Problems This patient has no known problems. Allergies, Adverse Reactions, Alerts This patient has no known allergies or adverse reactions. Medications This patient has no known medications. Results Test Description Test Time Test Comments Text Results Atomic Results Result Comments CHEST 2 VIEWS 2018-10-19 11:04:00 [facility] [address] [place] [address] Patient Name: LISA GLASER MR #: [id number] : 1940 Age/Sex: 78/M Req #: [id number] Adm Physician: Ordered by: FUENTES DAVE DPM Report #: [id number] Location: OR Room/Bed: Procedure: [id number] DX/CHEST 2 VIEWS Exam Date: 10/19/18 Exam Time: 0930 REPORT STATUS: Signed EXAM: CHEST 2 VIEWS DATE: 10/19/2018 9:30 AM INDIC ATION: Preop, foot surgery COMPARISON: Chest x-ray, 09/10/2018 FINDINGS: Lines and tubes: None Heart size normal. Trace right pleural effusion has resolved, and left pleural effusion has improved. Minimal residual left lower lobe atelectasis. No acute consolidation or pneumothorax. Upper abdomen unremarkable. No acute bony abnormality. IMPRESSION: Improvement of pleural effusions since last exam. Mild residual basilar atelectasis. Signed by: Dr. Ashok Redding M.D. on 10/19/2018 11:08 AM Dictated By: ASHOK REDDING MD 07 Transcribed By: DEMOND on 10/19/181107 COPY TO: FUENTES DAVE DPM FOOT RIGHT AP LAT 2018-09-15 10:13:00 [place] [address] Patient Name: LISA GLASER MR #: [id number] : 1940 Age/Sex: 78/M Req #: [id number] Adm Physician: ED SHETTY MD Ordered by: FUENTES DAVE DPM Report #: [id number] Location: [facility] Room/Bed: 285-1 Procedure: [id number] DX/FOOT RIGHT AP LAT Exam Date: 09/15/18 Exam Time: 0845 REPORT STATUS: Signed Exam: Right foot radiographs-2 views Clinical History: Status post fourth toe amputation Comparison: Right foot radiographs 09/02/2018 Findings: Per clinical history, the fourth digit has been amputated. The site is poorly evaluated due to obliquity. There is subcutaneous gas at the amputation site with linear hyperdensity. Diffuse atherosclerotic vascular calcifications. No evidence of acute fracture or malalignment. There is deformity of the distal phalanx of the first toe, which may reflect sequela of prior trauma. Impression: Per history, the fourth digit has been amputated. The site is poorly evaluated due to obliquity. There is subcutaneous gas at the amputation site, which may reflect recent postsurgical change. Hyperdensity at the amputation site could represent overlying material or residual bone and can be correlated with history and repeat radiographs if clinically indicated. Signed by: Dr. Georgie Ordonez MD on 09/15/2018 10:20 AM Dictated By: GEORGIE ORDONEZ MD 1020 Transcribed By: DEMOND on 09/15/18 1020 COPY TO: FUENTES DAVE DPGiovanna CHEST 2 VIEWS 2018-09-10 09:47:00 [place] [address] Patient Name: LISA GLASER MR #: [id number] : 1940 Age/Sex: 78/M Req #: [id number] Adm Physician: ED SHETTY MD Ordered by: ED SHETTY MD Report #: [id number] Location: [place] [address] Room/Bed: [facility] Procedure: [id number] DX/CHEST 2 VIEWS Exam Date: 09/10/18 Exam Time: 0930 REPORT STATUS: Signed EXAMINATION: PA and lateral views of the chest. DARRICK RISON: None CLINICAL HISTORY: Short of breath DISCUSSION: Lines/tubes: None. Lungs: Left lower lung atelectasis. Pleura: Left pleural effusion. Heart and mediastinum: The cardiomediastinal silhouette is normal. Bones and soft tissues: No acute bony abnormalities. IMPRESSION: Left pleural effusion with atelectasis Signed by: Dr. Zain Chacon M.D. on 09/10/2018 9:48 AM Dictated By: ZAIN CHACON MD Transcribed By: DEMOND on 09/10/18 0948 COPY TO: ED SHETTY MD CT CHEST WO 2018-09-02 15:56:00 [facility] [address] [place] [address] Patient Name: LISA GLASER MR #: [id number] : 1940 Age/Sex: 78/M Req #: [id number] Adm Physician: ED SHETTY MD Ordered by: ED SEHTTY MD Report #: [id number] Location: [facility] Room/Bed: [facility] Procedure: [id number] CT/CT CHEST WO Exam Date: 09/02/18 Exam Time: 1512 REPORT STATUS: Signed EXAM: CT Chest without contrast INDICATION: Congestion. COMPARISON: Chest radiograph 09/01/18. TECHNIQUE: Chest was scanned utilizing a multidetector helical scanner from the lung apex through the level of the adrenal glands without administration of IV contrast. Coronal and sagittal reformations were obtained. Routine protocol was performed. Dose modulation, iterative reconstruction, and/or weight based adjustment of the mA/kV was utilized to reduce the radiation dose to as low as reasonably achievable. RADIATION DOSE: Total DLP: 478.4 mGy*cm COMPLICATIONS: None FINDINGS: LINES/ TUBES: None. LUNGS AND AIRWAYS/PLEURA: The central airways are patent. Diffuse mild bronchial wall thickening. There is a small left and a trace right pleural effusion. There are patchy opacities in the left lower lobe. Mild patchy atelectasis within the right lower lobe, lingula, and middle lobe. Ovoid opacity within the left major fissure likely represents a trace amount of loculated pleural effusion. Diffuse opacity limits evaluation for underlying pulmonary nodule. There is a 2 mm solid nodule in the right upper lobe on series 3, image 22 and a 3 mm solid nodule in the right lower lobe on image 55. HEART AND MEDIASTINUM: The thyroid gland is normal. There are numerous calcified mediastinal and hilar lymph nodes. Extensive atherosclerotic calcifications of the thoracic aorta, branch vessels, and coronary arteries. Small pericardial effusion. The esophagus is distended and filled with fluid and air in the mid and distal portions. UPPER ABDOMEN: Limited non-contrast views of the upper abdomen show no abnormality within the partially visualized liver, spleen, or adrenal glands. BONES/SOFT TISSUES: No acute osseous abnormality. No suspicious lytic or blastic lesions. Degenerative changes of the visualized spine. IMPRESSION: Small left pleural effusion with patchy opacities in the left lower lobe which could represent atelectasis or pneumonia in the appropriate clinical context. Trace right pleural effusion. Distended esophagus which contains air and fluid within the mid and distal portions. Correlation for gastroesophageal reflux is advised. The patient may be at risk for aspiration. Tiny pulmonary nodules measuring up to 3 mm are likely benign. In a low risk patient, no further follow-up is recommended. If the patient has a history of smoking or other risk factor for malignancy, an optional chest CT may be considered in 12 months. Sequela of prior granulomatous disease. Signed by: Dr. Georgie Ordonez MD on 09/02/2018 4:05 PM Dictated By: GEORGIE ORDONEZ MD 1605 Transcribed By: DEMOND on 09/02/18 1605 COPY TO: ED SHETTY MD FOOT RIGHT COMPLETE 2018-09-02 14:22:00 [place] [address] Patient Name: LISA GLASER MR #: [id number] : 1940 Age/Sex: 78/M Req #: [id number] Adm Physician: ED SHETTY MD Ordered by: FUENTES DAVE DPM Report #: [id number] Location: [facility] Room/Bed: 285-1 Procedure: [id number] DX/FOOT RIGHT COMPLETE Exam Date: 09/02/18 Exam Time: 1345 REPORT STATUS: Signed Exam: Right foot radiographs-3 views Clinical Histo ry: Comparison: None. Findings: There is dressing material which overlies the fourth toe, somewhat limiting evaluation of the third through fifth digits. No definite acute fracture or malalignment. Soft tissue edema is present within the fourth toe. There are diffuse atherosclerotic vascular calcifications. There is also soft tissue edema of the first toe. There is deformity of the distal phalanx of the first toe, which may reflect sequela of prior trauma. Impression: Limited evaluation of the fourth toe due to overlying bandage material. Soft tissue edema of the fourth toe without definite acute osseous abnormality. If there is clinical suspicion for fourth toe abnormality. Repeat radiograph after removal of dressing may be obtained. Soft tissue edema of the first toe without evidence of acute fracture. Signed by: Dr. Georgie Ordonez MD on 09/02/2018 2:25 PM Dictated By: GEORGIE ORDONEZ MD 1425 Transcribed By: DEMOND on 09/02/18 1425 COPY TO: FUENTES DAVE DP CHEST SINGLE (PORTABLE) 2018-09-01 16:57:00 [place] [address] Patient Name: LISA GLASER MR #: [id number] : 1940 Age/Sex: 78/M Req #: [id number] Adm Physician: ED SHETTY MD Ordered by: ED SHETTY MD Report #: [id number] Location: [facility] Room/Bed: 285-1 Procedure: [id number] DX/CHEST SINGLE (PORTABLE) Exam Date: 09/01/18 Exam Time: 1639 REPORT STATUS: Signed Examination: Single AP view of the chest. COMPAR MORGAN: November 24, 2015 INDICATION: Low oxygen saturation DISCUSSION: Lines/tubes: None. Lungs: Left lung airspace opacity. Pleura: Small left effusion. Heart and mediastinum: Prominent heart size. Bones and soft tissues: No acute bony abnormalities. IMPRESSION: 1. Small left effusion and airspace opacity, likely atelectasis. Signed by: Dr. Zain Chacon M.D. on 09/01/2018 4:58 PM Dictated By: ZAIN CHACON MD 57 Transcribed By: DEMOND on 09/01/181657 COPY TO: ED SHETTY MD
--- NOTE | 2018-10-20 08:30 | Operative Report ---
DATE OF PROCEDURE: 10/20/2018 SURGEON: Bereket Beltre DPM PREOPERATIVE DIAGNOSES: 1. Grade 4 ulcer, 3rd toe, right foot. 2. Gangrene, right foot. 3. Peripheral arterial disease, right foot. POSTOPERATIVE DIAGNOSIS: Confirmed. OPERATIVE PROCEDURE: 1. Amputation, 3rd toe, right foot. 2. Incision and drainage, right foot down to bone. 3. Rotational flap closure. ANESTHESIA: General. HEMOSTASIS: None. PROCEDURE IN DETAIL: The patient was taken into the operating room, placed on the operative table in supine position. Following induction of general anesthesia by the anesthesiologist. The right lower extremity was then prepped and draped in the usual aseptic manner. Following procedures were then performed. PROCEDURE #1: Amputation, 3rd toe, right foot. Attention was directed to the dorsal aspect of the 3rd digit, where rotational incision was performed overlying the proximal interphalangeal joint. The incision was deepened down to the bone. At this point, it was encountered, a purulent drain was obtained. At this point, the remaining of the 3rd toe was I and D'd up to the metatarsophalangeal joint. The toe was then disarticulated at the metatarsophalangeal joint and sent for pathological analysis. All areas were then copiously flushed with sterile antibiotic solution and suctioned. PROCEDURE #2: Rotational flap closure was then performed. The incision was then lengthened both dorsally, laterally, and plantarly medially to create a plantar flap to allow for proper closure of skin margins with minimal skin tension to try to avoid anymore amputations. The flap was then reapproximated and closed utilizing 3-0 Vicryl in a horizontal mattress-type fashion. Then, approximately 5 mL of 0.5% plain Marcaine plus 3 mL of xylocaine plain and half a cc of betamethasone were injected to the above-mentioned areas. The betamethasone for the inflammation and the xylocaine and Marcaine for anesthesia. A sterile dressing was applied and the patient was then taken from the OR to recovery with vital signs stable, neurovascular status intact. No intraoperative complications were encountered. Blood loss from the surgery was minimal. The patient to remain partial weightbearing with the aid of the surgical shoe. Instructed that no guarantees can be given. If not responsive, may need a more proximal amputation, which may even include a [id number] amputation down the road. ANGELA Barrera /[id number]
--- NOTE | 2018-10-20 08:42 | Diagnostic Imaging Report ---
Exam: Right foot radiographs-2 views Clinical History: Status post amputation. Comparison: Right foot radiographs 09/15/2018. Findings: Overlying bandage obscures bony detail. There has been interval amputation of the third toe. There has been prior amputation of the fourth toe. There is surrounding soft tissue edema, consistent with recent surgery. No evidence of acute displaced fracture. There is an apparent sclerotic appearance at the base of the fifth metatarsal. No evidence of lytic bony destructive changes or periosteal changes to suggest acute osteomyelitis. There are diffuse atherosclerotic vascular calcifications. Impression: Status post amputation of the fourth toe and prior amputation of the third toe. Overlying bandage obscures bony detail. Apparent sclerotic appearance at the base of the fifth metatarsal may be artifactual from overlying bandage. However, a healing fracture chronic infectious process can have a similar appearance. Suggest follow-up repeat radiographs with bandage material removed. Signed by: Dr. En Smith MD on 10/20/2018 8:38 AM
[2018-10-20 08:55] VITALS: BP 132/71
== END | disposition home or self-care (01) ==
LOC: OR 05:16
PROVIDERS: ATTEND Podiatrist Foot Surgery
DX: I96 Gangrene, not elsewhere classified (principal); M86.171 Other acute osteomyelitis, right ankle and foot; M86.671 Other chronic osteomyelitis, right ankle and foot; I44.0 Atrioventricular block, first degree; E11.22 Type 2 diabetes mellitus with diabetic chronic kidney disease; I12.9 Hypertensive chronic kidney disease with stage 1 through stage 4 chronic kidney disease, or unspecified chronic kidney disease; N18.9 Chronic kidney disease, unspecified; Z01.812 Encounter for preprocedural laboratory examination; Z01.818 Encounter for other preprocedural examination; Z79.4 Long term (current) use of insulin; Z94.0 Kidney transplant status
CPT/HCPCS: 14040; 28820; 36415 ×2; 71046; 73620; 80048; 82948; 85025; 85610; 85730; 88305; 88311; J0690; J0720; J2001 ×2; J2405; J2704; 88304

== ENCOUNTER 2019-10-17 11:24 | Inpatient (IN) | payer MEDICARE ==
[~2019-10-17] VITALS: Ht 165.1 cm; Wt 77.3 kg
[~2019-10-17 11:24] MED LIST changes: -BACITRACIN 50,000 UNIT VIAL ONE; -BETAMETHASONE DISODIUM PHOS 6 MG/ML VIAL ONE; -BUPIVACAINE HCL 0.5% INJ 30 ML VIAL INJ ONE; -CEFAZOLIN SOD 1 GM/NS 50ML 50 ML IV ONE; -FENTANYL CITRATE/PF 100MCG/2 ML INJ ONE; -LIDOCAINE HCL 1% LOCAL INJ 20 ML VIAL ONE; -LIDOCAINE HCL 2% LOCAL INJ 5 ML SDV VIAL INJ ONE; -MUPIROCIN 2% OINT 22 GM TUBE ONE; -ONDANSETRON HCL INJ 2MG/ML 2ML 2 MG/ML VIAL ONE; -PROPOFOL IV EMULSION 10 MG/ML 20 ML VIAL ONE; -SEVOFLURANE INHAL SOLN 250 ML PEN BTL ONE
[2019-10-17] MEDS: ONDANSETRON HCL INJ 2MG/ML 2ML 2 MG/ML VIAL IV PRN (12:14)
[2019-10-17] MEDS: MORPHINE SULFATE 2 MG/ML SYR 1ML IV PRN (12:16)
--- NOTE | 2019-10-17 12:20 | NUR ---
attempted to called report was unable to get in contact with receiving nurse.Will call back.
[2019-10-17] MEDS ORDERED: OMEGA-31000 MG PO (12:29)
[2019-10-17 12:32] LABS: BASOPHILS % 0.1 % (0.0-1.0); EOSINOPHILS % 0.2 % (0.0-6.0); HEMATOCRIT 36.4 % (38.2-49.6); HEMOGLOBIN 12.1 g/dL (14.0-18.0); LYMPHOCYTES # (AUTO) 0.7 (1.0-3.2); LYMPHOCYTES % 4.1 % (18.0-39.1); MEAN CORPUSCULAR HEMOGLOBIN 27.6 pg (28-32); MEAN CORPUSCULAR HGB CONC 33.2 g/dL (31-35); MEAN CORPUSCULAR VOLUME 83.1 fL (81-99); MONOCYTES # (AUTO) 1.3 (0.2-0.8); MONOCYTES % 8.2 % (4.4-11.3); NEUTROPHILS # (AUTO) 14.1 (2.1-6.9); NEUTROPHILS % 86.7 % (38.7-80.0); PLATELET COUNT 310 x10e3/uL (140-360); RED BLOOD COUNT 4.38 x10e6/uL (4.3-5.7); RED CELL DISTRIBUTION WIDTH 12.6 % (11.7-14.4)
[2019-10-17 12:43] LABS: INR 1.05; PROTHROMBIN TIME 14.4 seconds (11.9-14.5)
[2019-10-17 12:44] LABS: PARTIAL THROMBOPLASTIN TIME 41.3 seconds (23.8-35.5)
--- NOTE | 2019-10-17 13:00 | Diagnostic Imaging Report ---
EXAMINATION: FOOT RIGHT COMPLETE INDICATION: Foot gangrene COMPARISON: None FINDINGS: Status post third and fourth digital amputation. No acute fracture or dislocation. Soft tissue ulceration of the second toe with subcutaneous soft tissue emphysema and exposed bone at the distal tuft of the second distal phalanx. Diffuse atherosclerotic calcifications. IMPRESSION: Soft tissue ulceration of the second toe with exposed bone at the distal tuft of the second distal phalanx. 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 Signed by: Evelyn Stein MD on 10/17/2019 12:56 PM
[2019-10-17 13:01] LABS: ALANINE AMINOTRANSFERASE 12 IU/L (0-55); ALBUMIN 2.6 g/dL (3.5-5.0); ALBUMIN/GLOBULIN RATIO 0.6 (0.8-2.0); ALKALINE PHOSPHATASE 93 IU/L (40-150); ANION GAP 15.2 mmol/L (8-16); BLOOD UREA NITROGEN 22 mg/dL (7-26); BUN/CREATININE RATIO 15 (6-25); CALCIUM 9.3 mg/dL (8.4-10.2); CARBON DIOXIDE 25 mmol/L (22-29); CHLORIDE 99 mmol/L (98-107); CREATINE KINASE 86 IU/L (30-200); EST GLOMERULAR FILTRATION RATE 45 ML/MIN (60-); GLUCOSE 151 mg/dL (74-118); POTASSIUM 4.2 mmol/L (3.5-5.1); SODIUM 135 mmol/L (136-145)
[2019-10-17 14:37] VITALS: BP 118/58
--- NOTE | 2019-10-17 15:15 | NUR ---
Patient arrived to the unit @ 1328 via stretcher. Patient in stable condition, no s/s of distress noted. No complaint of pain noted. Telemetry in place and working. Bed in lowest position and locked. Call light within reach. All personal items within reach.
[2019-10-17 15:30] VITALS: BP 118/58
--- NOTE | 2019-10-17 15:53 | Consultation ---
DATE OF CONSULTATION: 10/17/2019 Cardiology Consultation. CONSULTING PHYSICIAN: Jaswinder Bell MD, Interventional Cardiology. REASON FOR CONSULTATION: Peripheral vascular disease and preoperative evaluation. HISTORY OF PRESENT ILLNESS: Mr. 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 He is being admitted for further care including antibiotic therapy, so it is controlled. We have been asked to evaluate the patient. REVIEW OF SYSTEMS: A 12-system review negative except as noted above. PAST MEDICAL HISTORY: As per HPI. SOCIAL HISTORY: No smoking, alcohol, or drugs. FAMILY HISTORY: Noncontributory. PHYSICAL EXAMINATION: VITAL SIGNS: Temperature 98.6, heart rate 77, blood pressure 115/54, respiratory rate 16, and O2 saturation 98%. BMI 30.28. GENERAL: No acute distress, alert. NECK: No JVD. CHEST: Clear to auscultation bilaterally. CARDIOVASCULAR: Regular rate and rhythm. Normal S1, S2. No S3 or S4. Systolic ejection murmur 1/6. ABDOMEN: Soft. Bowel sounds positive. EXTREMITIES: No edema. Left TMA. Right second toe gangrene erythema of the forefoot. CARDIOVASCULAR MEDICATIONS: Reviewed, resuming aspirin 81 mg daily, statin, and beta-albertina of those. We will continue to hold calcium channel albertina for now, given blood pressure reads. LABORATORY DATA: Sodium 135, potassium 4.2, chloride 99, bicarbonate 25, BUN 22, creatinine 1.5, glucose 152. White blood cells 16.2, hemoglobin 12.1, platelets 310. PT 14.4, PTT 41.3, INR 1.05. AST 13, ALT 12, and alkaline phosphatase 93, total bilirubin 0.5. ASSESSMENT AND PLAN: A 79-year-old man presents with: 1. Acute kidney injury on chronic kidney disease in the setting of renal transplantation on immunosuppressant therapy. 2. Peripheral arterial disease with second right toe gangrene and associated forefoot cellulitis. 3. Hypertension. 4. Diabetes. 5. Dyslipidemia. RECOMMENDATIONS: 1. Renal consultation, given worsening creatinine from his previous baseline. 2. Resume aspirin, beta-albertina, and statin. 3. Consider IV fluid challenge. 4. Hold ARB for now given the increase in renal function. 5. Antibiotics per primary service. 6. Podiatry on board, we will coordinate care. 7. Further recommendations. Jaswinder Bell MD AFRachelle/MODL /[id number]
[2019-10-17 15:58] VITALS: BP 118/58
[2019-10-17] MEDS ORDERED: DEXTROSE 50% SYRINGE 50 ML IV PRN (16:00)
--- NOTE | 2019-10-17 16:28 | History and Physical ---
PRIMARY CARE PHYSICIAN: Jose Alejandro Helm MD CONSULTANTS: 1. Dr. Jaswinder Bell. 2. Dr. Bereket Beltre. CHIEF COMPLAINT: Right foot infection with dry gangrene toe, but cellulitis of the foot extending to the ankle area. HISTORY OF PRESENT ILLNESS: The patient is a 79-year-old male, who has severe peripheral vascular disease. He has right infected diabetic foot ulcer, previously had multiple toe amputation and a left TMA, now came back with right foot other toes gangrene and also cellulitis. The patient has a peripheral vascular disease with previous workup. The patient seemed to have worsening vascular problem. He will need further evaluation with consultation with Dr. Rudd and then subsequently possible amputation of the right foot. Therefore, the patient is now admitted to the hospital for further evaluation and treatment. Antibiotic will be initiated, pain control, home medication. PAST MEDICAL HISTORY: Peripheral vascular disease, diabetes type 2, history of kidney transplant, chronic kidney disease, peripheral vascular disease with previous multiple angioplasty previously. History of cataract with previous cataract surgery. Prostate surgery TURP due to enlarged prostate, dyslipidemia, insulin treatment diabetes type 2. Left TMA. Right foot multiple toe amputation. Taken anti-rejection medication for his right renal transplant. ALLERGIES: NO KNOWN ALLERGIES. HOME MEDICATIONS: The patient is on: 1. Alendronate. 2. Calcium carbonate. 3. Vitamin D3. 4. Cyclosporine. 5. NovoLog insulin. 6. Levemir insulin. 7. Losartan. 8. Metoprolol succinate. 9. Nifedipine. 10. Temple-3 fatty acids. 11. Pravastatin. 12. Prednisone. 13. Sirolimus. 14. Bactrim. 15. Torsemide. PHYSICAL EXAMINATION: VITAL SIGNS: Temperature is 98, blood pressure 115/54, pulse rate 77, respiration 18. GENERAL: The patient is not in acute distress, he is awake. HEENT: Normocephalic and atraumatic. Anicteric. NECK: Supple grossly. PULMONARY: Clear. CARDIOVASCULAR: Regular rate and rhythm. ABDOMEN: Soft. EXTREMITIES: Right foot with previous multiple toe amputation. There was toe gangrenous. There is cellulitis of the right foot extending up to near the ankle area. Left foot TMA. Diminished pulse of the right foot noticed. Pulse is faint. Chronic peripheral vascular disease noted on the right foot. LABORATORY DATA: Sodium is 135, potassium 4.2, chloride 99, bicarb 25, BUN is 22, creatinine 1.5, and glucose is 151. Coagulation INR is 1.05. WBC 16, hemoglobin 12.5, hematocrit 36.4, and platelets 310. IMPRESSION: 1. Right foot gangrene with the toe gangrene. 2. Right foot cellulitis. 3. Peripheral vascular disease, chronic. 4. Multiple baseline problem. PLAN: Antibiotics. Consultation with Dr. Rudd. Consultation with Dr. Bereket Beltre. Lovenox for now. Resume home medication. Insulin sliding scale coverage. Control blood sugar. Home medication. Arterial Doppler of the lower extremity. MD YOGI Campbell/MODL /[id number]
[2019-10-17] MEDS: ENOXAPARIN 30 MG/0.3 ML SYR SC SCH (16:41)
[2019-10-17] MEDS: METOPROLOL SUCCINATE 50 MG TAB XL PO SCH (16:41)
[2019-10-17] MEDS: INSULIN LISPRO 100 UNIT/1 ML 3ML VIAL SQ SCH ×2 (16:51→21:00)
[2019-10-17] MEDS ORDERED: VANCOMYCIN 750MG/NS 150ML IVPB 150 ML IV SCH (17:00)
[2019-10-17] MEDS ORDERED: SODIUM CHLORIDE 0.9% 250ML 250 ML ONE (17:34)
[2019-10-17] MEDS: CYCLOSPORINE 25 MG CAP PO SCH (18:16)
--- NOTE | 2019-10-17 19:09 | NUR ---
Bedside shift report given to oncoming nurse. Patient in stable condition, no s/s of distress noted. No complaints of pain noted. Telemetry in place and working. Bed in lowest position and locked. Call light within reach. All personal items within reach.
--- NOTE | 2019-10-17 19:30 | NUR ---
patient received awake, alert, lying quietly in bed. vss. no c/o pain noted. pm assessment complete. patient instructed to call for assistance when needed.
[2019-10-17 19:34] VITALS: BP 99/55
[2019-10-17 20:41] LABS: CREATINE KINASE 78 IU/L (30-200)
[2019-10-17] MEDS ORDERED: NON-FORMULARY MEDICATION (Pravastatin Sodium 10 MG) PO SCH (21:00)
[2019-10-17] MEDS: PRAVASTATIN 20 MG TAB PO SCH (21:00)
[2019-10-17] MEDS: INSULIN GLARGINE 100 UNITS/ML VIAL SQ SCH (21:00)
[2019-10-17] MEDS: PIPER-TAZ 3.375 GM 50 ML IV SCH (21:11)
[2019-10-17 22:13] VITALS: BP 99/55
[2019-10-18] VITALS (8 sets, daily range): BP systolic 108–119; BP diastolic 57–62
[2019-10-18] MEDS: ENOXAPARIN 30 MG/0.3 ML SYR SC SCH ×2 (05:00→16:39)
[2019-10-18] MEDS: CYCLOSPORINE 25 MG CAP PO SCH ×2 (05:28→20:58)
[2019-10-18] MEDS: NIFEDIPINE CR 30 MG TAB PO SCH (05:28)
[2019-10-18] MEDS: PIPER-TAZ 3.375 GM 50 ML IV SCH ×2 (05:28→20:58)
[2019-10-18] MEDS: MORPHINE SULFATE 2 MG/ML SYR 1ML IV PRN ×2 (05:39→16:27)
[2019-10-18] MEDS: ONDANSETRON HCL INJ 2MG/ML 2ML 2 MG/ML VIAL IV PRN (05:39)
[2019-10-18] MEDS ORDERED: ONDANSETRON HCL INJ 2MG/ML 2ML 2 MG/ML VIAL ONE (05:42)
[2019-10-18] MEDS ORDERED: MORPHINE SULFATE INJ 4 MG/ML INJ 1ML ONE (05:44)
[2019-10-18 06:06] LABS: BASOPHILS % 0.2 % (0.0-1.0); EOSINOPHILS % 0.2 % (0.0-6.0); HEMATOCRIT 34.8 % (38.2-49.6); HEMOGLOBIN 11.3 g/dL (14.0-18.0); LYMPHOCYTES % 7.9 % (18.0-39.1); MEAN CORPUSCULAR HEMOGLOBIN 27.4 pg (28-32); MEAN CORPUSCULAR HGB CONC 32.5 g/dL (31-35); MEAN CORPUSCULAR VOLUME 84.3 fL (81-99); MONOCYTES # (AUTO) 1.5 (0.2-0.8); NEUTROPHILS # (AUTO) 9.6 (2.1-6.9); NEUTROPHILS % 79.1 % (38.7-80.0); PLATELET COUNT 300 x10e3/uL (140-360); RED BLOOD COUNT 4.13 x10e6/uL (4.3-5.7); RED CELL DISTRIBUTION WIDTH 12.8 % (11.7-14.4)
[2019-10-18 06:07] LABS: ANION GAP 14.2 mmol/L (8-16); CALCIUM 8.9 mg/dL (8.4-10.2); CREATININE, SERUM 1.75 mg/dL (0.72-1.25); POTASSIUM 4.2 mmol/L (3.5-5.1)
[2019-10-18] MEDS: INSULIN LISPRO 100 UNIT/1 ML 3ML VIAL SQ SCH ×4 (07:30→21:00)
--- NOTE | 2019-10-18 08:25 | Consultation ---
DATE OF CONSULTATION: 10/18/2019 REASON FOR CONSULTATION: Gangrenous changes to the forefoot aspect of the right lower extremity. HISTORY OF PRESENT ILLNESS: This is a pleasant 79-year-old male, who is very well known to me, who has had some gangrenous changes for quite some time to the right lower extremity, getting worse. The patient is denying any history of fever, chills, nausea, vomiting. He has a past medical history remarkable for insulin-dependent diabetes times 30+ years, hypertension, and hypercholesteremia. The patient underwent angioplasty to his right lower extremity approximately several days ago and did not get any significant changes. His right lower extremity started becoming more mottled and cool to touch. He relates that since he has been in the hospital getting IV antibiotics, he has been doing somewhat better with a lot less pain. PAST MEDICAL HISTORY: As described above. PAST SURGICAL HISTORY: Remarkable for amputation of the 3rd and 4th toes, right foot; transmetatarsal amputation, left with angioplasties to both lower extremities. MEDICATIONS: Currently on Zosyn and vancomycin. ALLERGIES: THE PATIENT DENIES. SOCIAL HISTORY: Denies any smoking, drinking, or recreational drug use. Lives with his , has 4 kids. FAMILY HISTORY: Remarkable for diabetes. REVIEW OF SYSTEMS: CARDIAC: Denies any palpitations or arrhythmias. RESPIRATORY: Denies any shortness of breath or productive cough. GASTROINTESTINAL: Denies any diarrhea or constipation. GENITOURINARY: Denies hematuria or problems voiding. PHYSICAL EXAMINATION: VITAL SIGNS: Temperature of 100.2, pulse rate 76, respirations 22, blood pressure 108/57, O2 saturation 95%. Podiatric physical examination reveals the following: VASCULATURE: Pedal pulses of both the DP and PT are diminished and barely palpable. Skin temperature warm and cool to touch from the forefoot distally. Getting warmer since he was seen yesterday in the office. NEUROLOGICAL: Reveals complete loss of protective sensation when utilizing [employer]-Cy 5.07 monofilament wire. MUSCULOSKELETAL: Reveals muscle mass to be symmetrical. Muscle strength to be 3 to 4/5 to all muscle groups. DERMATOLOGIC: Reveals forefoot edema. Decreased dorsiflexion of both feet with the knees extended, opposed to knee flexed. Gangrenous changes noted to the 2nd toe right foot with mottled appearance. Forefoot aspect of the right lower extremity, getting somewhat better since he was seen yesterday. LABORATORY DATA: Labs noted as white blood cell count dropping from 16.2-12.1. ASSESSMENT: Peripheral arterial disease, gangrene, equinus deformity with cellulitis. PLAN: We will continue IV antibiotics. Continue to let the foot demarcate. We will await if anything else could be done vascular hopkins. Definitive procedure will be done sometime next week upon demarcation of foot. ANGELA Barrera/DULCE /[id number]
[2019-10-18] MEDS ORDERED: OMEGA PO SCH (09:00)
[2019-10-18] MEDS ORDERED: OMEGA 3 POLYUNSAT FATTY ACIDS 1000 MG SOFTGEL PO SCH (09:00)
[2019-10-18] MEDS ORDERED: TRIMETHOPRIM/SULFAMETHOXAZOLE 160-800 MG TAB PO SCH (09:00)
[2019-10-18] MEDS ORDERED: FATTY ACID PO SCH (09:00)
[2019-10-18] MEDS ORDERED: SIROLIMUS 1 MG TABLET PO SCH (09:00)
[2019-10-18] MEDS: ASPIRIN 81 MG CHEW TAB PO SCH (09:25)
[2019-10-18] MEDS: PREDNISONE 5 MG TAB PO SCH (09:26)
[2019-10-18] MEDS: SIROLIMUS 1 MG PO SCH (09:26)
[2019-10-18] MEDS: METOPROLOL SUCCINATE 50 MG TAB XL PO SCH ×2 (09:27→16:32)
[2019-10-18] MEDS: CHOLECALCIFEROL 1,000 UNIT TAB PO SCH (09:27)
[2019-10-18] MEDS: CALCIUM CARBONATE 500 MG CHEWABLE TABS PO SCH (09:27)
--- NOTE | 2019-10-18 14:39 | NUR ---
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 Labs and meds reviewed. Pt is a 79 year old male admitted with gangrene of the toe of right foot. Attempted to call patient, but he did not answer. Therefore, spoke to RN who reported pt is eating >50% of meals. No weight loss is evident per weight history. Will continue to monitor. Current Diet: 1800 kcal ADA Malnutrition Evaluation (10/18/19) The patient does not meet criteria for a specified degree of malnutrition at this time. Will re-evaluate at follow-up as appropriate. Diet Education Needs Assessment: RD is available for diet education as needed Nutrition Care Level: low Signed: Micheline Quesada, RD, LD
--- NOTE | 2019-10-18 15:18 | NUR ---
CONSULT Mr. 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 He is being admitted for further care including antibiotic therapy, so it is controlled. We have been asked to evaluate the patient.
[2019-10-18] MEDS: SODIUM CHLORIDE 0.9% 1000ML 1,000 ML IV SCH ×2 (15:21→23:30)
--- NOTE | 2019-10-18 16:17 | Consultation ---
DATE OF CONSULTATION: REASON FOR CONSULTATION: Gangrene of second toe. HISTORY OF PRESENT ILLNESS: This patient who is a 79-year-old gentleman, had diabetes mellitus, hypertension, end-stage renal disease on hemodialysis, status post orthotopic renal transplant on immunosuppressive treatment, comes in with gangrene of 2nd toe. The patient has had severe peripheral vascular disease, had TMA on the left lower extremity and digit amputation of right lower extremity, comes in with dry gangrene of the 2nd right digit. The patient was currently alert, oriented. Denies a history of trauma, lying in bed comfortably. There is some pain in the foot. PAST MEDICAL HISTORY: As above. PAST SURGICAL HISTORY: As above. ALLERGIES: NKA. SOCIAL HISTORY: There is no smoking, drug abuse, or alcohol abuse. FAMILY HISTORY: Hypertension and diabetes. REVIEW OF SYSTEMS: At the present time, HEENT: Negative. PULMONARY: Negative. CARDIAC: Negative. : Negative. LABORATORY DATA: White count on admission was 16.2, came down to 12.13, hemoglobin 11. Sodium 135, potassium 4.2 with creatinine 1.75. MEDICATIONS: The patient is currently on: 1. Insulin. 2. Vitamin D. 3. Prednisone 5 mg daily. 4. Zofran. 5. Cyclosporine 25 and 50. 6. He is on Bactrim and Zosyn. IMPRESSION: 1. Gangrene of the 2nd toe. The patient is at risk for losing his toe. 2. Status post renal transplant. 3. Chronic kidney disease. 4. Diabetes mellitus, currently on Zosyn. It seems to be he is also on Bactrim as prophylaxis. We will discuss with Renal. We will follow. MD JEROMY Bower/MODL /[id number]
--- NOTE | 2019-10-18 16:32 | Consultation ---
DATE OF CONSULTATION: 10/18/2019 HISTORY OF PRESENT ILLNESS: Mr. Sepulveda is known to our Nephrology Service. He is a 79-year-old gentleman with underlying history of diabetes, hypertension, peripheral neuropathy, status post kidney transplant, baseline creatinine 1.1 as of September 12, 2019. Maintained on cyclosporine 50 mg in the morning and 25 mg in the evening, Sirolimus 1 mg p.o. daily, prednisone 5 mg daily, admitted with dry gangrene of his right foot second toe. Denies fever, chills, chest pain, or shortness of breath. Currently lying supine, in no apparent distress. White count found to be 12.1 with a sodium of 135, potassium 4.2, and creatinine 1.75. ALLERGIES: NO APPARENT DRUG ALLERGIES. CURRENT MEDICATIONS: The patient is on: 1. Bactrim one tablet daily. 2. Vancomycin 1 g IV piggyback daily. 3. Piperacillin/tazobactam 3.375 g IV every 8 hours. 4. Morphine p.r.n. 5. Aspirin 81 mg daily. 6. Vitamin D3. 7. Tums. 8. Morphine p.r.n. 9. Metoprolol 100 mg p.o. b.i.d. SOCIAL HISTORY: Does not smoke or drink. FAMILY HISTORY: Significant for diabetes. PHYSICAL EXAMINATION: GENERAL: Awake, alert, oriented x3, lying supine, in no apparent distress. VITAL SIGNS: Blood pressure 130/60, pulse rate 82, and afebrile. HEAD AND NECK: Cornea clear. Oral mucosa moist. LUNGS: Relatively clear. HEART: S1 and S2 audible. ABDOMEN: Otherwise, soft and nontender. EXTREMITIES: Lower extremity examination shows very mild redness, if at all dorsum of the right foot with very dry gangrenous of right second toe. IMPRESSION AND PLAN: Acute on chronic kidney failure, kidney transplantation, immunosuppressed. Discussed with Pharmacy, they must arrange Sirolimus. The patient does not have his home medication here. The cyclosporine dose was entered wrong. I will correct it to his home dose, which is 50 mg in the morning and 25 mg in the evening with prednisone 5 mg daily and sirolimus 1 mg p.o. daily. I will adjust the piperacillin/tazobactam dose to 3.375 g IV every 12 hours. Consult ID. This is a complicated case. Discontinue daily vancomycin. Start IV fluids. Change Bactrim to three times a week instead of daily, most likely for prophylaxis. IV fluid, rule out prerenal component to his underlying kidney failure. Please see orders. MD OLIVIA Rich/DULCE /[id number]
[2019-10-18] MEDS ORDERED: NON-FORMULARY MEDICATION PO SCH (17:00)
--- NOTE | 2019-10-18 19:00 | NUR ---
patient received awake, alert, lying quietly in bed. no c/o pain noted. ivf infusing without difficulty. pm assessment complete. patient instructed to call for assistance when needed.
--- NOTE | 2019-10-18 19:38 | Progress Note ---
DATE: Cardiology Progress Note SUBJECTIVE: No new complaints. Denies chest pain or shortness of breath. OBJECTIVE: VITAL SIGNS: Temperature 98 degrees, heart rate 82, blood pressure 113/60, respiratory rate 18, O2 saturation 92%. GENERAL: No acute distress. Alert. NECK: No JVD. CHEST: Clear to auscultation. CARDIOVASCULAR: Regular rate and rhythm. Normal S1, S2. Abd: Soft Ext: R 2nd toe gangrene, forefoot and 1st R toe dusky discoloration and erythema MEDICATIONS: Cardiovascular medications reviewed. 1. Nifedipine 10 mg daily. 2. Lovenox 30 mg subcu q.12 hours. 3. Metoprolol succinate 100 mg b.i.d. 4. Aspirin 81 mg daily. 5. Pravastatin 10 mg at bedtime. STUDIES: Reviewed. Potassium 4.2, bicarbonate 24, creatinine trending up at 1.7, and glucose 117. White blood cells 12.1, hemoglobin 9.3, platelets 300. ASSESSMENT AND PLAN: A 79-year-old man with peripheral arterial disease and renal transplantation in the setting of chronic kidney disease with acute kidney injury 1. Hypertension. 2. Diabetes. 3. Dyslipidemia. Will coordinate with nephrology. We will allow further demarcation of foot. Coordinating care with podiatry. Continue antibiotics for stabilization of infection and assess response. Await renal recovery. MD HoV/SANTOL /[id number] MTDD
[2019-10-18] MEDS: PRAVASTATIN 20 MG TAB PO SCH (20:58)
[2019-10-18] MEDS: INSULIN GLARGINE 100 UNITS/ML VIAL SQ SCH (21:00)
[2019-10-19] VITALS (8 sets, daily range): BP systolic 110–140; BP diastolic 58–67
[2019-10-19] MEDS: ONDANSETRON HCL INJ 2MG/ML 2ML 2 MG/ML VIAL IV PRN ×2 (02:37→22:33)
[2019-10-19] MEDS: MORPHINE SULFATE 2 MG/ML SYR 1ML IV PRN ×3 (02:37→22:33)
[2019-10-19] MEDS: ENOXAPARIN 30 MG/0.3 ML SYR SC SCH ×2 (05:00→16:55)
[2019-10-19] MEDS: NIFEDIPINE CR 30 MG TAB PO SCH (05:54)
[2019-10-19] MEDS: CYCLOSPORINE 25 MG CAP PO SCH ×2 (05:54→20:21)
[2019-10-19 06:16] LABS: ALBUMIN 2.1 g/dL (3.5-5.0); ALBUMIN/GLOBULIN RATIO 0.5 (0.8-2.0); CALCIUM 8.1 mg/dL (8.4-10.2); CREATININE, SERUM 1.7 mg/dL (0.72-1.25)
[2019-10-19] MEDS: INSULIN LISPRO 100 UNIT/1 ML 3ML VIAL SQ SCH ×4 (07:30→20:54)
[2019-10-19] MEDS: PIPER-TAZ 3.375 GM 50 ML IV SCH ×2 (08:32→20:21)
[2019-10-19] MEDS: CALCIUM CARBONATE 500 MG CHEWABLE TABS PO SCH (08:35)
[2019-10-19] MEDS: CHOLECALCIFEROL 1,000 UNIT TAB PO SCH (08:35)
[2019-10-19] MEDS: METOPROLOL SUCCINATE 50 MG TAB XL PO SCH ×2 (08:36→16:55)
[2019-10-19] MEDS: PREDNISONE 5 MG TAB PO SCH (08:37)
[2019-10-19] MEDS: SIROLIMUS 1 MG PO SCH (08:37)
[2019-10-19] MEDS: ASPIRIN 81 MG CHEW TAB PO SCH (08:38)
[2019-10-19] MEDS: TRIMETHOPRIM/SULFAMETHOXAZOLE 160-800 MG TAB PO SCH (08:38)
[2019-10-19] MEDS: SODIUM CHLORIDE 0.9% 1000ML 1,000 ML IV SCH ×2 (09:30→19:30)
--- NOTE | 2019-10-19 10:35 | NUR ---
Pt on phone and unavailable at this time. Will follow up as able. JEWELL COLUNGA Electronic Specialist Spiritual Care Department O: [phone]
[2019-10-19 11:01] LABS: CLARITY,URINE CLEAR (CLEAR); COLOR,URINE YELLOW (YELLOW)
[2019-10-19 11:02] LABS: BILIRUBIN,URINE NEGATIVE (NEGATIVE); KETONES,URINE NEGATIVE (NEGATIVE); LEUKOCYTE ESTERASE ,URINE NEGATIVE (NEGATIVE); NITRITE,URINE NEGATIVE (NEGATIVE); PROTEIN,URINE DIPSTICK 1+ (NEGATIVE); URINE UROBILINOGEN 0.2 mg/dL (0.2 - 1)
[2019-10-19 11:06] LABS: WBC,URINE (MAN) 0-5 /HPF (0-5)
[2019-10-19 11:07] LABS: BACTERIA,URINE FEW /HPF; EPITHELIAL CELLS,URINE FEW /LPF; RBC,URINE 0-5 /HPF (0-5)
[2019-10-19] MEDS ORDERED: ACETAMINOPHEN 325 MG TAB PO PRN (11:30)
--- NOTE | 2019-10-19 12:29 | Consultation ---
DATE OF CONSULTATION: 10/19/2019 SUBJECTIVE: The patient relates still has some discomfort to the right lower extremity, doing somewhat better since he has been getting IV antibiotics. OBJECTIVE: VITAL SIGNS: Temperature of 98.8, pulse rate 83, respirations 18, blood pressure 140/67, and O2 saturation is 92%. LABORATORY DATA: Show a white blood cell count of 12.13, hemoglobin 11.3, some cyanosis noted to the forefoot aspect of the right lower extremity. There is skin temperature up to the mid foot and somewhat cool from mid foot distally. Some cyanosis noted to the right great toe. Gangrenous changes noted to the 2nd toe right foot with a cool 5th digit right foot with decreased dorsiflexion of the right lower extremity, the knee extended, opposed to knee flexed. ASSESSMENT: Peripheral arterial disease, gangrene, equinus deformity with diabetic neuropathy, microvascular disease with peripheral arterial disease. PLAN: We will continue to let the foot demarcate before definitive procedure will be performed. We will discuss with Dr. Rudd if anything else to be done. We will treat with local wound care and IV antibiotics. Continue offloading. We will continue to follow. ANGELA Barrera/DULCE /[id number]
--- NOTE | 2019-10-19 13:06 | NUR ---
Patient's IV infiltrated. Patient's IV was removed and covered with a dry dressing. Patient had a new 22 gauge IV started on his right forearm. Patient had no issues or complaints. Will continue to monitor.
--- NOTE | 2019-10-19 14:05 | Progress Note ---
DATE: 10/19/2019 Cardiology Progress Note. SUBJECTIVE: Otoniel denies any chest pain or shortness of breath. He continues to have mild discomfort in the foot. OBJECTIVE: VITAL SIGNS: Temperature 98.8, heart rate 83, blood pressure 140/67, respiratory rate 18, O2 saturation 92%. GENERAL: No acute distress, alert. NECK: No JVD. CHEST: Clear to auscultation. CARDIOVASCULAR: Regular rate and rhythm. Normal S1, S2. ABDOMEN: Soft. Bowel sounds positive. EXTREMITIES: Trace edema right foot with hyperpigmented changes, first toe with dusk discoloration and second right toe with black dry gangrene. Proximal forefoot with hyperpigmentation and erythema. Abnormal dorsalis pedis and posterior tibial pulses. CARDIOVASCULAR MEDICATIONS: Reviewed: 1. Nifedipine 30 mg daily. 2. Metoprolol succinate 100 mg b.i.d. 3. Aspirin 81 mg daily. 4. Hydralazine 25 mg every 4 hours. 5. Pravastatin 10 mg at bedtime. 6. Enoxaparin 30 mg subcu q.12 hours. STUDIES: Reviewed: Potassium 4, bicarbonate 24, creatinine 1.7. White blood cells 12, hemoglobin 11.3, and platelets 300. ASSESSMENT AND PLAN: 1. Peripheral arterial disease with critical limb ischemia, right second toe gangrene and associated cellulitis. 2. Chronic kidney disease status post orthotopic renal transplantation, on immunosuppressive therapy. 3. Hypertension. 4. Diabetes. 5. Dyslipidemia. RECOMMENDATIONS: Discussed with Dr. Beltre, coordinating care with Podiatry. The patient will continue antibiotic therapy and allow for further foot demarcation. Angiography and intervention to the anterior tibial artery can be considered. However, pending resolution of HEATHER. We will further discuss with Nephrology over the next several days and make a decision ray. Awaiting risks, benefits, indications, alternatives with the patient and other treating physicians. For now, continue current cardiovascular medications. Jaswinder Bell MD AFV/MODL /[id number]
--- NOTE | 2019-10-19 19:15 | NUR ---
patient received awake, alert, lying quietly in bed. vss. no c/o pain noted. call cordero placed within reach. patient instructed to call for assistance when needed.
[2019-10-19] MEDS: PRAVASTATIN 20 MG TAB PO SCH (20:21)
[2019-10-19] MEDS ORDERED: SODIUM CHLORIDE 0.9% 250ML 250 ML ONE (20:38)
[2019-10-19] MEDS: INSULIN GLARGINE 100 UNITS/ML VIAL SQ SCH (20:54)
--- NOTE | 2019-10-19 22:33 | NUR ---
patient medicated with morphine 4mg and zofran 4mg ivp for c/o right foot pain 7/ at this time.
[2019-10-20] VITALS (7 sets, daily range): BP systolic 127–146; BP diastolic 60–68
[2019-10-20] MEDS: ENOXAPARIN 30 MG/0.3 ML SYR SC SCH ×2 (05:00→16:16)
[2019-10-20] MEDS: CYCLOSPORINE 25 MG CAP PO SCH ×2 (05:22→21:38)
[2019-10-20] MEDS: NIFEDIPINE CR 30 MG TAB PO SCH (05:22)
[2019-10-20] MEDS: SODIUM CHLORIDE 0.9% 1000ML 1,000 ML IV SCH ×2 (05:30→15:30)
[2019-10-20 06:13] LABS: BASOPHILS % 0.2 % (0.0-1.0); EOSINOPHILS # (AUTO) 0.1 (0.0-0.4); EOSINOPHILS % 0.6 % (0.0-6.0); HEMATOCRIT 33.2 % (38.2-49.6); HEMOGLOBIN 10.7 g/dL (14.0-18.0); LYMPHOCYTES # (AUTO) 0.6 (1.0-3.2); LYMPHOCYTES % 5.6 % (18.0-39.1); MEAN CORPUSCULAR HEMOGLOBIN 27.4 pg (28-32); MEAN CORPUSCULAR HGB CONC 32.2 g/dL (31-35); MEAN CORPUSCULAR VOLUME 85.1 fL (81-99); MONOCYTES # (AUTO) 1.3 (0.2-0.8); MONOCYTES % 12.3 % (4.4-11.3); NEUTROPHILS # (AUTO) 8.8 (2.1-6.9); NEUTROPHILS % 80.7 % (38.7-80.0); PLATELET COUNT 310 x10e3/uL (140-360); RED CELL DISTRIBUTION WIDTH 13.1 % (11.7-14.4)
[2019-10-20] MEDS: INSULIN LISPRO 100 UNIT/1 ML 3ML VIAL SQ SCH ×4 (07:30→21:00)
[2019-10-20] MEDS: ASPIRIN 81 MG CHEW TAB PO SCH (09:41)
[2019-10-20] MEDS: PIPER-TAZ 3.375 GM 50 ML IV SCH ×2 (09:41→22:00)
[2019-10-20] MEDS: CALCIUM CARBONATE 500 MG CHEWABLE TABS PO SCH (09:41)
[2019-10-20] MEDS: CHOLECALCIFEROL 1,000 UNIT TAB PO SCH (09:41)
[2019-10-20] MEDS: PREDNISONE 5 MG TAB PO SCH (09:41)
[2019-10-20] MEDS: METOPROLOL SUCCINATE 50 MG TAB XL PO SCH ×2 (09:42→16:56)
[2019-10-20] MEDS: MORPHINE SULFATE 2 MG/ML SYR 1ML IV PRN ×2 (09:54→16:15)
[2019-10-20] MEDS: SIROLIMUS 1 MG PO SCH (11:00)
--- NOTE | 2019-10-20 13:24 | Progress Note ---
DATE: 10/20/2019 SUBJECTIVE: The patient at bedside, doing better. Denies any history of fever, chills, nausea, or vomiting. OBJECTIVE: VITAL SIGNS: Afebrile, pulse rate 80, respirations 19, blood pressure 132/60, O2 saturation 91%. EXTREMITIES: He has cyanosis to the forefoot aspect of right lower extremity. Skin temperature little bit warm to touch with a gangrenous 2nd toe and decreased dorsiflexion of the foot with the knee extended, opposed to knee flexed. LABORATORY DATA: Lab show white blood cell count dropping to 10.8, hemoglobin 10.7, hematocrit 33.2 with a platelet count of 310. ASSESSMENT: Equinus deformity, gangrene, cellulitis, peripheral arterial disease. PLAN: We will continue let the foot demarcate. Possible angiogram will be done on Tuesday or Tuesday per Dr. Rudd to see if any more revascularization can be done before definitive procedure is performed. ANGELA Barrera/DULCE /[id number]
--- NOTE | 2019-10-20 15:00 | Progress Note ---
DATE: 10/20/2019 SUBJECTIVE: Denies any swelling. Denies any trouble breathing. White count is coming down. Has gangrene of the right foot second digit. He has a history of kidney transplant about 12 years ago, maintained on prednisone/cyclosporine, low-dose/sirolimus. He is also on Bactrim every other day, which may be discontinued at this point. PHYSICAL EXAMINATION: GENERAL: Lying in bed, in no distress. EXTREMITIES: Showing gangrene of the right foot. No edema is noted. VITAL SIGNS: Blood pressure 132/60, pulse 60, and temperature 98.6. CHEST: Clear. CARDIAC: Normal heart tones. Rhythm sounds regular. EXTREMITIES: No edema. NEUROLOGIC: Appears to be alert, appropriate. Speech is normal. LABORATORY DATA: Hemoglobin 10.7, white count 10.8, and platelets are 310. Urine has some protein and few bacteria. Last creatinine is 1.7, K of 4.0, serum CO2 of 24. Prior baseline creatinine about a year ago was 1.1. ASSESSMENT: 1. Acute kidney injury, presume the acute tubular necrosis from the infection, consider volume depletion, although less likely as he says he is drinking well and he has also got some IV fluids. 2. Hypertension, reasonable. 3. Peripheral vascular disease. PLAN: 1. From Renal standpoint, I will encourage hydration, serial chemistries. We will try to obtain cyclosporine and rapamycin levels. Stop the Bactrim for now. 2. Hold any ARB. 3. No emergent need for dialysis. 4. Get renal ultrasound. 5. Check urine eosinophils. MD DENIA Mixon/MODL /[id number]
[2019-10-20] MEDS: LINEZOLID 600 MG/D5W 300ML 300 ML IV SCH (16:15)
--- NOTE | 2019-10-20 17:45 | Progress Note ---
DATE: SUBJECTIVE: Mr. Sepulveda is feeling better. The toe remains gangrene. There is still some erythema. PHYSICAL EXAMINATION: GENERAL: He is currently alert, oriented, does not seem in acute distress. VITAL SIGNS: Stable, currently afebrile. HEENT: He is not icteric. NECK: Supple. CHEST: Clear. EXTREMITIES: The foot has gangrenous erythema. IMPRESSION: Gangrene of the second toe on the right with cellulitis, recommend amputation. Vascular workup is in progress. Continue IV antibiotic, but I would recommend because of the cellulitis. We will recommend toe amputation as soon as possible. MD JEROMY Bower/MODL /[id number]
--- NOTE | 2019-10-20 18:37 | Diagnostic Imaging Report ---
EXAM: Renal Ultrasound INDICATION: ^arf, pls check transplanted kidney for hydro COMPARISON: None TECHNIQUE: Transverse and longitudinal images of the kidneys and bladder were obtained. FINDINGS: [place] kidneys not visualized. Transplanted right kidney in the right lower quadrant: Length: 12.2 x 6.2 x 5.9 cm Appearance: Normal echogenicity. Collecting system: No hydronephrosis Stones: None Cyst/Mass: None Bladder: Normal The prostate is normal in size, measuring 3 x 2.5 x 2.6 cm. IMPRESSION: Normal transplant right lower quadrant kidney. Signed by: Dr. Dania Barbour M.D. on 10/20/2019 6:34 PM
--- NOTE | 2019-10-20 19:21 | Progress Note ---
DATE: 10/20/2019 Cardiology Progress Note SUBJECTIVE: Denies any chest pain or shortness of breath. OBJECTIVE: VITAL SIGNS: Temperature 97.4, heart rate 86, blood pressure 146/67, respiratory rate 21, O2 saturation 95%. GENERAL: In no acute distress. Alert. NECK: No JVD. CHEST: Clear to auscultation. CARDIOVASCULAR: Regular rate and rhythm. Normal S1 and S2. ABDOMEN: Soft. Bowel sounds positive. EXTREMITIES: Abnormal pedal pulses. No edema. Skin discoloration with cyanotic purplish discoloration of skin from 1st toe and distal medial portion of forefoot in proximity to 1st and 2nd toe with dry gangrene of 2nd toe with erythema up to the right foot, overall worse compared to yesterday. CARDIOVASCULAR MEDICATIONS: Reviewed. 1. Nifedipine 30 mg daily. 2. Metoprolol succinate 100 mg b.i.d. 3. Aspirin 81 mg daily. 4. Lovenox 30 mg subcu q.12 hours. 5. Pravastatin 10 mg at bedtime. STUDIES: Reviewed. Potassium 4, creatinine 1.7, this is from yesterday. Hemoglobin 10.7 from today, platelets 310. White blood cells 10.8. ASSESSMENT AND PLAN: 1. A 79-year-old man with peripheral arterial disease, presents with infected right foot with underlying 2nd toe gangrene, now with worsening early gangrene changes to forefoot and 1st toe. 2. Chronic kidney disease with acute kidney injury component in the patient with renal failure and renal transplantation, on immunosuppressive therapy. 3. Anemia. 4. Hypertension, dyslipidemia, and diabetes. RECOMMENDATIONS: Reassess renal function tomorrow and await Nephrology input regarding whether or not to proceed with angiography for attempted limb salvage. At this point, his foot exam continues to worsen significantly from yesterday. Continue current cardiovascular medications otherwise. We will continue coordination of care with the rest of treating physicians. MD MIRELLA Bates/MODAndrew /[id number]
--- NOTE | 2019-10-20 19:25 | NUR ---
Patient received lying in bed. AAO x 3.Patient had no complaints of pain. Respirations even and non-labored. Fall precautions implemented. Patient instructed to call for assistance when needed. Call light within reach.
[2019-10-20] MEDS: INSULIN GLARGINE 100 UNITS/ML VIAL SQ SCH (21:00)
[2019-10-20] MEDS: ONDANSETRON HCL 4 MG ORAL DISINTEGRATING TAB PO PRN (21:34)
[2019-10-20] MEDS: PRAVASTATIN 20 MG TAB PO SCH (21:38)
--- NOTE | 2019-10-20 23:05 | NUR ---
IV on right arm infiltrated . Old IV removed with tip intact. New IV inserted in right FA 20G. Patient tolerated well.
[2019-10-21] VITALS (7 sets, daily range): BP systolic 136–158; BP diastolic 63–73
[2019-10-21] MEDS: MORPHINE SULFATE 2 MG/ML SYR 1ML IV PRN ×3 (00:31→12:41)
[2019-10-21] MEDS: SODIUM CHLORIDE 0.9% 1000ML 1,000 ML IV SCH ×5 (01:30→22:18)
[2019-10-21] MEDS: LINEZOLID 600 MG/D5W 300ML 300 ML IV SCH ×2 (03:00→15:00)
[2019-10-21] MEDS: CYCLOSPORINE 25 MG CAP PO SCH ×2 (06:00→21:00)
[2019-10-21] MEDS: NIFEDIPINE CR 30 MG TAB PO SCH (06:00)
[2019-10-21] MEDS: ENOXAPARIN 30 MG/0.3 ML SYR SC SCH (06:48)
--- NOTE | 2019-10-21 06:55 | NUR ---
Shift report given to oncoming nurse regarding patient's status. Patient in stable condition.
[2019-10-21 06:56] LABS: ANION GAP 12.9 mmol/L (8-16); CALCIUM 7.9 mg/dL (8.4-10.2); CREATININE, SERUM 1.29 mg/dL (0.72-1.25); PHOSPHORUS 2.2 MG/DL (2.3-4.7); POTASSIUM 3.9 mmol/L (3.5-5.1)
[2019-10-21] MEDS: INSULIN LISPRO 100 UNIT/1 ML 3ML VIAL SQ SCH ×4 (07:30→21:00)
[2019-10-21] MEDS: ASPIRIN 81 MG CHEW TAB PO SCH (09:00)
[2019-10-21] MEDS: SIROLIMUS 1 MG PO SCH (09:00)
[2019-10-21] MEDS: CHOLECALCIFEROL 1,000 UNIT TAB PO SCH (09:00)
[2019-10-21] MEDS: PIPER-TAZ 3.375 GM 50 ML IV SCH ×2 (09:00→21:00)
[2019-10-21] MEDS: PREDNISONE 5 MG TAB PO SCH (09:00)
[2019-10-21] MEDS: METOPROLOL SUCCINATE 50 MG TAB XL PO SCH ×2 (09:00→16:39)
[2019-10-21] MEDS: CALCIUM CARBONATE 500 MG CHEWABLE TABS PO SCH (09:00)
[2019-10-21] MEDS: ONDANSETRON HCL 4 MG ORAL DISINTEGRATING TAB PO PRN (12:41)
--- NOTE | 2019-10-21 12:50 | NUR ---
patient medicated with morphine 4mg and zofran 4mg ivp for c/o right foot pain 8/ at this time.
--- NOTE | 2019-10-21 12:50 | NUR ---
PT TEMP 101.2 CALL TO Jose Elias SHETTY FOR ORDERS. TYLENOL GIVEN.
--- NOTE | 2019-10-21 15:22 | Progress Note ---
DATE: 10/21/2019 Cardiology Progress Note SUBJECTIVE: No complaints today. Denies chest pain or shortness of breath. OBJECTIVE: VITAL SIGNS: Temperature 101.2, heart rate 81, blood pressure 144/67, respiratory rate 18, and O2 saturation 94%. GENERAL: In no acute distress, alert. NECK: No JVD. CHEST: Clear to auscultation. CARDIOVASCULAR: Regular rate and rhythm. Normal S1, S2. ABDOMEN: Soft. Bowel sounds positive. EXTREMITIES: Abnormal pedal pulses. Right foot with 2nd toe gangrene, first toe with early gangrenous changes and distal medial forefoot with early gangrenous changes. CARDIOVASCULAR MEDICATIONS: Reviewed. Nifedipine 30 mg daily, metoprolol succinate 100 mg b.i.d., Lovenox 30 mg subcu q.12 hours being held, aspirin 81 mg daily, and pravastatin 40 mg at bedtime. LABORATORY STUDIES: Reviewed. Creatinine 1.2. Hemoglobin 10, platelets 310, and white blood cells 10.8. ASSESSMENT AND PLAN: A 79-year-old man with orthostatic renal transplantation, on immunosuppressive therapy, presents with right foot cellulitis and gangrene in the setting of underlying peripheral arterial disease, hypertension, diabetes, dyslipidemia, anemia, and chronic kidney disease with Acute kidney injury component, now improved. RECOMMENDATIONS: We will discuss with Nephrology, possible angiography preceding the patient's amputation. He will need amputation for source control in addition to current antibiotic therapy. He is developing no fevers. White count is mildly elevated today. However, concerned about level of amputation at this point remains. Since creatinine seems to be trending down from 1.7 to 1.3, we will coordinate with Nephrology if agreeable to proceed with angiography and possible interventions in the a.m. Continue rest of cardiovascular medications including beta albertina. He will have an elevated risk for adverse cardiovascular outcomes with noncardiac surgery. Perioperative beta-blockers are in place. No unstable cardiac conditions identified. Jaswinder Bell MD AFV/MODL /[id number]
--- NOTE | 2019-10-21 15:37 | Progress Note ---
DATE: 10/21/2019 SUBJECTIVE: The patient is at bedside, doing somewhat better. Does have some pain to the right lower extremity. Denies any history of fever, chills, nausea, or vomiting. OBJECTIVE: VITAL SIGNS: Temp of 101.2, pulse rate 81, respirations 18, blood pressure 144/67, and O2 saturation 94%. LABORATORY DATA: Labs show a white blood cell count of 10.86. Cyanosis noted to the forefoot aspect right foot. Skin temperature is cool to touch on this date, it was warmer yesterday. Some cyanosis noted to the 2nd metatarsophalangeal joint area with dry gangrenous changes noted to the 2nd toe, left foot with decreased dorsiflexion with the knee extended, opposed to knee flex with right lower extremity. ASSESSMENT: Peripheral arterial disease, gangrene, and cellulitis with equinus deformity. PLAN: We will continue local wound care. Continue IV antibiotics. Continue to treat conservatively. We will continue let the foot demarcate before definitive procedures done. ANGELA Barrera/DULCE /[id number]
--- NOTE | 2019-10-21 19:32 | NUR ---
Report given to on coming nurse, walking rounds complete.
[2019-10-21] MEDS: PRAVASTATIN 20 MG TAB PO SCH (21:00)
[2019-10-21] MEDS: INSULIN GLARGINE 100 UNITS/ML VIAL SQ SCH (21:00)
[2019-10-22] VITALS (16 sets, daily range): BP systolic 109–176; BP diastolic 58–99
[2019-10-22] MEDS: MORPHINE SULFATE 2 MG/ML SYR 1ML IV PRN ×2 (00:12→04:15)
[2019-10-22] MEDS: HYDRALAZINE HCL 25 MG TAB PO PRN ×3 (00:44→17:42)
[2019-10-22] MEDS: LINEZOLID 600 MG/D5W 300ML 300 ML IV SCH ×2 (03:40→15:00)
--- NOTE | 2019-10-22 04:50 | NUR ---
IV infiltrated in right arm. New IV inserted in right hand 20 G and right FA 22G. Patient tolerated well.
[2019-10-22 05:57] LABS: BASOPHILS % 0.2 % (0.0-1.0); EOSINOPHILS % 0.2 % (0.0-6.0); HEMOGLOBIN 10.8 g/dL (14.0-18.0); LYMPHOCYTES # (AUTO) 0.7 (1.0-3.2); LYMPHOCYTES % 5.7 % (18.0-39.1); MEAN CORPUSCULAR HEMOGLOBIN 27.3 pg (28-32); MEAN CORPUSCULAR HGB CONC 31.8 g/dL (31-35); MEAN CORPUSCULAR VOLUME 86.1 fL (81-99); MONOCYTES # (AUTO) 1.3 (0.2-0.8); MONOCYTES % 10.5 % (4.4-11.3); NEUTROPHILS # (AUTO) 10.6 (2.1-6.9); NEUTROPHILS % 82.5 % (38.7-80.0); PLATELET COUNT 333 x10e3/uL (140-360); RED BLOOD COUNT 3.95 x10e6/uL (4.3-5.7); RED CELL DISTRIBUTION WIDTH 13.1 % (11.7-14.4)
[2019-10-22] MEDS: CYCLOSPORINE 25 MG CAP PO SCH ×2 (06:00→20:51)
[2019-10-22] MEDS: NIFEDIPINE CR 30 MG TAB PO SCH (06:00)
[2019-10-22 06:01] LABS: INR 1.15; PROTHROMBIN TIME 15.4 seconds (11.9-14.5)
[2019-10-22 06:02] LABS: PARTIAL THROMBOPLASTIN TIME 33.1 seconds (23.8-35.5)
[2019-10-22 06:21] LABS: BLOOD UREA NITROGEN 16 mg/dL (7-26); BUN/CREATININE RATIO 14 (6-25); CALCIUM 8.1 mg/dL (8.4-10.2); CARBON DIOXIDE 22 mmol/L (22-29); CHLORIDE 105 mmol/L (98-107); CREATININE, SERUM 1.11 mg/dL (0.72-1.25); EST GLOMERULAR FILTRATION RATE > 60 ML/MIN (60-); GLUCOSE 99 mg/dL (74-118); SODIUM 138 mmol/L (136-145)
--- NOTE | 2019-10-22 06:55 | NUR ---
Patient resting comfortably. Bed-side report given to oncoming nurse regarding patient's status. Call light within reach.
[2019-10-22] MEDS: SODIUM CHLORIDE 0.9% 1000ML 1,000 ML IV SCH ×2 (07:30→17:24)
[2019-10-22] MEDS: INSULIN LISPRO 100 UNIT/1 ML 3ML VIAL SQ SCH ×4 (07:30→20:51)
--- NOTE | 2019-10-22 07:50 | NUR ---
PATIENT IS AWAKE, ALERT, AND IN STABLE CONDITION WITH NO S/S OF RESPIRATORY DISTRESS. NO PAIN VOICED AT THIS TIME. PATIENT AMBULATES WITH WALKER AND STANDBY ASSISTANCE- BED ALARM APPLIED. LEFT FOOT HAS TOTAL TMA AND RIGHT FOOT HAS NECROTIC SECOND TOE WITH THE THIRD AND FOURTH TOE BEING AMPUTATED. PATIENT IS NPO FOR PROCEDURE TODAY. CALL LIGHT IS WITHIN REACH, PATIENT INSTRUCTED TO CALL FOR ASSISTANCE NEEDED.
--- NOTE | 2019-10-22 08:50 | NUR ---
CALL PLACED OUT TO DR. SOUSA REGARDING PATIENT'S ELEVATED BP OF 172/81 WELL TO INQUIRE ON TODAY'S PROCEDURE. AWAITING CALLBACK.
[2019-10-22] MEDS: METOPROLOL SUCCINATE 50 MG TAB XL PO SCH ×2 (09:08→17:42)
[2019-10-22] MEDS: PIPER-TAZ 3.375 GM 50 ML IV SCH (09:08)
[2019-10-22] MEDS: ASPIRIN 81 MG CHEW TAB PO SCH (09:08)
--- NOTE | 2019-10-22 09:51 | NUR ---
PATIENT OFF THE UNIT PER BED TO OFFENSIVE COORDINATOR. PATIENT IN STABLE CONDITION WITH NO S/S OF RESPIRATORY DISTRESS. TELEMETRY APPLIED.
[2019-10-22] MEDS ORDERED: HEPARIN SOD/SOD CHLORIDE 2,000 ML ONE (10:00)
[2019-10-22] MEDS ORDERED: FENTANYL CITRATE/PF 100MCG/2 ML INJ ONE (10:00)
[2019-10-22] MEDS ORDERED: MIDAZOLAM HCL 2 MG/2 ML VIAL ONE (10:00)
[2019-10-22] MEDS ORDERED: HEPARIN SOD (PORCINE) 1000 UNIT/ML 30ML ONE (10:00)
[2019-10-22] MEDS ORDERED: SODIUM CHLORIDE 0.9% 1000ML 1,000 ML ONE (10:00)
[2019-10-22] MEDS ORDERED: IOPAMIDOL 300MG/ML 100 ML INFUS..BTL IV ONE (10:00)
[2019-10-22] MEDS ORDERED: LIDOCAINE HCL 2% LOCAL 20 ML VIAL ONE (10:01)
[2019-10-22] MEDS ORDERED: NITROGLYCERIN/D5W 200 MCG/ML 250 ML ONE (10:01)
[2019-10-22] MEDS ORDERED: CEFEPIME HCL 1 GM VIAL IV SCH (11:30)
[2019-10-22] MEDS: CHOLECALCIFEROL 1,000 UNIT TAB PO SCH (11:59)
[2019-10-22] MEDS: SIROLIMUS 1 MG PO SCH (11:59)
[2019-10-22] MEDS: CALCIUM CARBONATE 500 MG CHEWABLE TABS PO SCH (11:59)
[2019-10-22] MEDS: TRIMETHOPRIM/SULFAMETHOXAZOLE 160-800 MG TAB PO SCH (11:59)
[2019-10-22] MEDS: CEFEPIME 1GM/NS 0.9% 50 ML 50 ML IV SCH (11:59)
[2019-10-22] MEDS: PREDNISONE 5 MG TAB PO SCH (11:59)
--- NOTE | 2019-10-22 12:40 | Progress Note ---
DATE: SUBJECTIVE: Mr. Sepulveda is a pleasant 79-year-old gentleman, came to the hospital component of infected right foot 2nd toe. The patient has multiple previous amputations of the toes evident on exam. REVIEW OF SYSTEMS: No nausea, vomiting, fever, chills, chest pain, shortness of breath. No headache or dysuria, polyuria. The patient complains of pain during foot examination. ALLERGIES: NO KNOWN ALLERGIES. PHYSICAL EXAMINATION: VITAL SIGNS: Temperature 99.8 max today, however, had maximum temperature 101.2 yesterday at about 1345 hour, pulse is 81, respirations 18, and blood pressure 172/81. GENERAL: Alert and oriented, in no acute distress. HEENT: Moist. No pallor. No JVD. CVS: S1, S2. CHEST: Equal expansion. Clear to auscultation. No acute distress. ABDOMEN: Soft and nontender. No distention. EXTREMITIES: Right foot 2nd toe, dry gangrene with wet gangrene around the tip of the 3rd, 4th metatarsals tender to touch. No active drainage noted. SKIN: Intact. LABORATORY STUDIES: White blood cells 12.82, went up from 10.86, hemoglobin 10.8, platelet 333. Creatinine is 1.11 has improved from 1.75. MICROBIOLOGY: Blood culture negative so far from 10/17/2019. RADIOLOGY STUDIES: No new radiology studies available. Renal ultrasound on 10/20/2019 showed normal transplant right lower quadrant kidney. ASSESSMENT AND PLAN: 1. Infected right foot 2nd toe. 2. Cellulitis of the right foot up to mid metatarsal area. 3. Acute renal failure with improvement in creatinine level. 4. Immunocompromised with renal transplant. Podiatry is waiting for further demarcation of the infected area prior to any surgical procedure. Cardiology is planning to coordinate angiogram with renal specialist since the patient is immunocompromised status post renal transplant with elevated creatinine, however, creatinine has improved. As far as Infectious Disease point of view we continue with the Zyvox and Zosyn. Amputation is recommended as soon as possible by Infectious Disease. Further management of this patient is based on daily findings on laboratory and physical examination. Please note the Zosyn is dosed based on renal function. MD JEROMY Bower/DULCE /[id number]
--- NOTE | 2019-10-22 13:10 | Progress Note ---
DATE: SUBJECTIVE: Mr. Sepulveda is about the same. There is no new complaint. REVIEW OF SYSTEMS: HEENT: Negative. PULMONARY: Negative. The foot is about the same. PHYSICAL EXAMINATION: GENERAL: He is currently alert and oriented, does not seem in acute distress. VITAL SIGNS: Stable. Afebrile. HEENT: He is not icteric. NECK: Supple. CHEST: Clear. Heart: S2 and S2. ABDOMEN: Soft. The toe is gangrenous. There is some erythema. IMPRESSION: Gangrene of the toe. Cellulitis of the foot. Recommend amputation of the toe. We will discuss with Podiatry. We will get an MRI. Continue with IV antibiotic. MD JEROMY Bower/MODL /[id number]
--- NOTE | 2019-10-22 14:01 | NUR ---
BOTH IV'S REMOVED WITH TIP INTACT. PICC LINE CONSENT SIGNED- RADIOLOGY INFORMED. WAITING FOR PICC TEAM.
--- NOTE | 2019-10-22 15:26 | Operative Report ---
DATE OF PROCEDURE: 10/22/2019 SURGEON: Jaswinder Bell MD PROCEDURE INDICATION: The patient with critical limb ischemia and associated infection and immunosuppressed state, severe peripheral vascular disease and arterial Dopplers performed while in the hospital suggesting ffjpu-joi-easu vessel disease with monophasic waveforms to the anterior tibial artery, which is the adjacent affected with progression of gangrenous changes. Limb salvage procedure failing noninvasive medical therapy. PROCEDURES PERFORMED: 1. Abdominal aortogram. 2. Selective lower extremity angiography unilateral to right lower extremity. 3. Catheter placement in the aorta and 3rd order catheter placement from left common femoral artery to right common femoral artery. 4. Ultrasound-guided access to the left common femoral artery. 5. Manual pressure hemostasis. PROCEDURE COMPLICATIONS: None. ESTIMATED BLOOD LOSS: Less than 15 mL. PROCEDURE SUMMARY: After consent was obtained, the patient was prepped and draped in a sterile fashion. Left femoral site was locally infiltrated with 2% lidocaine and access was obtained using ultrasound guidance and with micropuncture kit. A 6-Luxembourgish sheath was placed to the left common femoral artery and an Omni Flush catheter was positioned in the distal descending abdominal aorta for angiography revealing luminal irregularities throughout the infrarenal aorta, 30% stenosis to the right common iliac artery, luminal irregularities throughout the rest of the iliac vessels bilaterally and common femoral arteries with less than 30% stenosis. Additional selective angiography was then performed to the right lower extremity after catheter was advanced through to the femoral artery position on the right. Angiography is performed with cine. An additional selective angiography was performed with digital subtraction to the oaoei-rso-sibr vessels confirming the following findings. 1. Profunda femoris and right common femoral artery have moderate calcifications and less than 30% stenosis. The right popliteal artery has 30% proximal and 40% to 50% distal stenosis. The right anterior tibial artery has a focal area of 40% to 50% stenosis. 2. The right TP trunk has proximal 50% stenosis. The posterior tibial artery is 100% occluded throughout. The peroneal artery is patent at the foot level however the dorsalis pedis artery, the posterior tibial artery branches and all the distal arteries and plantar arteries are severely, severely diseased with faint minimal visualization of collaterals closely towards the lateral aspect of the foot overall small severe outflow disease at the post op. At the end of the procedure, moderate pressure hemostasis applied to the access site of left femoral artery. CONCLUSION: Severe outflow disease, small caliber vessel affecting the right foot with severe disease to the distal arteries, dorsalis pedis, plantar branches with dkyx-ey-vjeyblev residual above the ankle level disease other than occluded posterior tibial artery, which does not have outflow for revascularization. Recommend at this point proceeding with TMA versus Chopart amputation if okay with Podiatry for source control as the patient is becoming febrile in the setting of immune suppressed state with ongoing ischemic disease with overlying infection. If failure to heal would have low threshold to proceed with right BKA given the extent of outflow disease observed. Images and recommendations have been discussed with the patient and reviewed with the patient. We will coordinate care with Podiatry. MD MIRELLA Btaes/DULCE /[id number]
--- NOTE | 2019-10-22 15:51 | Progress Note ---
DATE: 10/22/2019 Cardiology Progress Note SUBJECTIVE: Otoniel denies any chest pain or shortness of breath today. OBJECTIVE: VITAL SIGNS: Temperature 99.6, heart rate 81, blood pressure 172/81, respiratory rate 18, and O2 saturation 100%. GENERAL: In no acute distress, alert. NECK: No JVD. CHEST: Clear to auscultation. CARDIOVASCULAR: Regular rate and rhythm. Normal S1, S2. ABDOMEN: Soft. Bowel sounds positive. EXTREMITIES: Trace edema. Right forefoot with gangrenous changes to the 1st and 2nd toe, dry gangrene of 2nd toe, and distal medial right forefoot early gangrenous changes. CARDIOVASCULAR MEDICATIONS: Reviewed. Nifedipine 30 mg daily, metoprolol succinate 100 mg b.i.d., aspirin 81 mg daily, and pravastatin 10 mg at bedtime. LABORATORY STUDIES: Reviewed. Creatinine 1.1, potassium 4, and bicarbonate 22. White blood cells 12.8, hemoglobin 10.8, and platelets 333. 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 The patient with diabetes, hypertension, and dyslipidemia. Status post peripheral angiogram today revealing extremely severe outflow disease to the right foot level with kgbz-me-gaxecggg disease of a patent anterior tibial peroneal artery. At this point, recommend proceeding with source control surgery by Podiatry with low threshold to proceed with DKA if failure of wound healing in the initial phase postoperatively. The patient has moderate risk for adverse cardiovascular outcomes with noncardiac surgery in the setting of his comorbidities including diabetes and CKD. Perioperative beta-blockers are advised. Jaswinder Bell MD AFV/MODL /[id number]
--- NOTE | 2019-10-22 18:06 | Progress Note ---
DATE: 10/22/2019 SUBJECTIVE: The patient seen at bedside. Relates he is doing okay. Still has some right lower extremity pain. Had an angiogram today and was shown to have a patent anterior tibial artery. OBJECTIVE: VITAL SIGNS: Afebrile, pulse rate 79, respiration 14, blood pressure 151/78, and O2 saturation 98%. LABORATORY DATA: Labs show a white blood cell count of 12.8, hemoglobin 10.8, platelet count of 333 with hematocrit of 34. Has an INR of 1.15 with a blood glucose of 141. Cyanosis of the forefoot aspect of the right lower extremity noted. Gangrenous changes noted to the 2nd toe right foot with cellulitis surrounding the gangrene. Decreased dorsiflexion with the knee extended, opposed to knee flex. ASSESSMENT: Equinus deformity, abscess, osteomyelitis, gangrene with peripheral arterial disease. PLAN: We will continue one more day of foot demarcation. Continue IV antibiotics. I spoke to Dr. Rudd. Castro from a cardiac standpoint to go ahead to do the surgery on Tuesday. The patient informed of the surgical intervention, procedure and no guarantees will be given. Definitive procedure will be determined tomorrow depending on how the foot looks. ANGELA Barrera/DULCE /[id number]
--- NOTE | 2019-10-22 18:25 | Diagnostic Imaging Report ---
EXAMINATION: CHEST XRAY LINE PLACEMENT INDICATION: ^PICC LINE PLACEMENT ^[id number] ^[id number] COMPARISON: None FINDINGS: TUBES and LINES: Right peripherally inserted central venous catheter with distal tip over the low superior vena cava LUNGS: Airspace opacity in the left lung base worrisome for pneumonia. PLEURA: No pneumothorax. Possible small left pleural effusion. HEART AND MEDIASTINUM: The cardiomediastinal silhouette is unremarkable. BONES AND SOFT TISSUES: No acute osseous lesion. Soft tissues are unremarkable. UPPER ABDOMEN: No free air under the diaphragm. IMPRESSION: Right peripherally inserted central venous catheter with distal tip over the low superior vena cava. No pneumothorax. Airspace opacity in the left lung base worrisome for pneumonia. Follow-up imaging is indicated to document clearing. Signed by: Dr. Abdirashid Hsieh M.D. on 10/22/2019 6:22 PM
--- NOTE | 2019-10-22 19:35 | NUR ---
PATIENT IN STABLE CONDITION WITH NO S/S OF RESPIRATORY DISTRESS. NO PAIN VOICED. PATIENT'S FLUIDS CONNECTED TO PICC LINE. TELEMETRY APPLIED. BED ALARM APPLIED. CALL LIGHT IS WITHIN REACH, PATIENT INSTRUCTED TO CALL FOR ASSISTANCE NEEDED. BEDSIDE SHIFT REPORT GIVEN TO ONCOMING NURSE.
[2019-10-22] MEDS: PRAVASTATIN 20 MG TAB PO SCH (20:51)
[2019-10-22] MEDS: ONDANSETRON HCL 4 MG ORAL DISINTEGRATING TAB PO PRN (20:51)
[2019-10-22] MEDS: INSULIN GLARGINE 100 UNITS/ML VIAL SQ SCH (20:52)
[2019-10-23] VITALS (8 sets, daily range): BP systolic 148–196; BP diastolic 53–74
[2019-10-23] MEDS: MORPHINE SULFATE 2 MG/ML SYR 1ML IV PRN ×5 (00:01→21:22)
[2019-10-23] MEDS: CEFEPIME 1GM/NS 0.9% 50 ML 50 ML IV SCH ×2 (00:06→12:31)
[2019-10-23] MEDS: LINEZOLID 600 MG/D5W 300ML 300 ML IV SCH ×2 (03:22→15:40)
[2019-10-23 04:49] LABS: HEMATOCRIT 31.5 % (38.2-49.6); HEMOGLOBIN 10.1 g/dL (14.0-18.0); LYMPHOCYTES # (AUTO) 0.7 (1.0-3.2); MEAN CORPUSCULAR HEMOGLOBIN 27.4 pg (28-32); MEAN CORPUSCULAR HGB CONC 32.1 g/dL (31-35); MEAN CORPUSCULAR VOLUME 85.4 fL (81-99); MONOCYTES # (AUTO) 1.2 (0.2-0.8); NEUTROPHILS # (AUTO) 9.1 (2.1-6.9); PLATELET COUNT 312 x10e3/uL (140-360); RED BLOOD COUNT 3.69 x10e6/uL (4.3-5.7); RED CELL DISTRIBUTION WIDTH 13.3 % (11.7-14.4)
[2019-10-23 05:00] LABS: INR 1.17; PROTHROMBIN TIME 15.7 seconds (11.9-14.5)
[2019-10-23 05:04] LABS: ANION GAP 6.1 mmol/L (8-16); BLOOD UREA NITROGEN 12 mg/dL (7-26); BUN/CREATININE RATIO 12 (6-25); CALCIUM 7.7 mg/dL (8.4-10.2); CARBON DIOXIDE 25 mmol/L (22-29); CHLORIDE 109 mmol/L (98-107); CREATININE, SERUM 1.02 mg/dL (0.72-1.25); EST GLOMERULAR FILTRATION RATE > 60 ML/MIN (60-); GLUCOSE 154 mg/dL (74-118); POTASSIUM 4.1 mmol/L (3.5-5.1); SODIUM 136 mmol/L (136-145)
[2019-10-23] MEDS: CYCLOSPORINE 25 MG CAP PO SCH ×2 (05:08→21:21)
[2019-10-23] MEDS: NIFEDIPINE CR 30 MG TAB PO SCH (05:08)
--- NOTE | 2019-10-23 07:00 | NUR ---
Received bedside shift report from off going nurse. Patient in stable condition, no s/s of distress noted. No complaints of pain. Telemetry in place and working. Bed in lowest position and locked. call light within reach.
[2019-10-23] MEDS: INSULIN LISPRO 100 UNIT/1 ML 3ML VIAL SQ SCH ×4 (07:30→21:21)
[2019-10-23] MEDS: ONDANSETRON HCL 4 MG ORAL DISINTEGRATING TAB PO PRN ×2 (09:28→16:10)
[2019-10-23] MEDS: ASPIRIN 81 MG CHEW TAB PO SCH (09:35)
[2019-10-23] MEDS: METOPROLOL SUCCINATE 50 MG TAB XL PO SCH ×2 (09:36→16:36)
[2019-10-23] MEDS: CHOLECALCIFEROL 1,000 UNIT TAB PO SCH (09:37)
[2019-10-23] MEDS: CALCIUM CARBONATE 500 MG CHEWABLE TABS PO SCH (09:37)
[2019-10-23] MEDS: PREDNISONE 5 MG TAB PO SCH (09:42)
[2019-10-23] MEDS: SIROLIMUS 1 MG PO SCH (09:42)
--- NOTE | 2019-10-23 10:25 | Progress Note ---
DATE: SUBJECTIVE: The patient was seen and evaluated with the staff in the room. REVIEW OF SYSTEMS: No nausea, vomiting, fever, chills, chest pain, shortness of breath, headache, dysuria, polyuria, pain is controlled on the right foot. OBJECTIVE: VITAL SIGNS: Temperature is 98.1, with the T-max of 100.9 last night around 1 o'clock in the morning. Pulse is 82, respiration 18, and blood pressure 174/73. GENERAL: Alert and oriented, comfortable in bed, in no acute distress. CV: S1, S2. CHEST: Equal expansion. Clear to auscultation. No acute distress. ABDOMEN: Soft and nontender. No distention. HEENT: Moist. No pallor. No JVD. EXTREMITIES: Right foot 2nd toe, dry gangrene with a wet gangrene of the metatarsal area with erythema almost all the way to the ankle. MEDICATION: Medication list reviewed. As far as Infectious Disease point of view, the patient is on Zyvox and cefepime. LABORATORY STUDIES: White blood cells 11.12, hemoglobin 10.1, platelet count of 312. Creatinine level at 1.02. Microbiology; blood cultures negative after five days. RADIOLOGY STUDIES: The patient is status post S arteriogram by Dr. Bell. ASSESSMENT: 1. Infected right foot 2nd toe. 2. Infected right foot with cellulitis. 3. Renal insufficiency, acute on chronic. 4. Immunocompromised with renal transplant. 5. The patient is status post an angiogram by Dr. Bell. Peripheral arteriogram showed extremely severe outflow disease to the right foot level with mild to moderate disease of the patent anterior tibial peroneal artery, and it was recommended at this point to proceed with surgery by Podiatry with low threshold to proceed with BKA, if failure of the wound healing in the initial phase postoperatively noted. 6. Spoke with the attending. 7. Spoke with Dr. Esparza. PLAN: For TMA tomorrow on 10/24/2019, continue with IV antibiotics. Overall guarded prognosis. Antibiotics dose based on kidney function. Further management of this patient is based on daily findings on laboratory and physical examination. Please refer to the chart for more information. The patient had a maximum temperature of 100.9 last night. We will recheck blood culture. Dictated by Maurisio Gonzalez PA-C (Al) MD DAVON Bower/DULCE /[id number]
[2019-10-23] MEDS: SODIUM CHLORIDE 0.9% 1000ML 1,000 ML IV SCH ×2 (13:30)
--- NOTE | 2019-10-23 19:21 | Progress Note ---
DATE: 10/23/2019 Cardiology Progress Note SUBJECTIVE: Denies chest pain or shortness of breath. OBJECTIVE: VITAL SIGNS: Temperature 99.6, heart rate 83, blood pressure 166/71, respiratory rate 16, and O2 saturation 93%. GENERAL: No acute distress. Alert. NECK: No JVD. CHEST: Clear to auscultation. CARDIOVASCULAR: Regular rate and rhythm. Normal S1, S2. ABDOMEN: Soft. Bowel sounds positive. EXTREMITIES: Trace edema. Right foot with abnormal pedal pulses, cold to touch from right forefoot, right 1st and 2nd toe gangrene, distal medial forefoot gangrene. CARDIOVASCULAR MEDICATIONS: Reviewed. Nifedipine 30 mg daily, metoprolol succinate 100 mg b.i.d., aspirin 81 mg daily, hydralazine 25 mg every 4 hours, pravastatin 10 mg at bedtime. STUDIES: Reviewed. Potassium 4.1, bicarbonate 25, creatinine 1.02, glucose 154. White blood cells 11.1, hemoglobin 10.1, platelets 312. ASSESSMENT: A 79-year-old man with peripheral arterial disease, gangrenous changes and cellulitis to right foot, hypertension, dyslipidemia, diabetes mellitus, chronic renal failure, status post orthotopic renal transplant, on immunosuppressive therapy and anemia. RECOMMENDATIONS: Moderate risk for adverse cardiovascular outcomes with noncardiac surgery. Perioperative beta-blockers advised. Coordinating care with Podiatry. Severe peripheral vascular disease with severe outflow/small vessel disease to right foot. Continue rest of cardiovascular medications. Guarded limb prognosis. Jaswinder Bell MD AFV/MODL /[id number]
--- NOTE | 2019-10-23 20:09 | NUR ---
Completed bedside shift report with oncoming nurse. Patient in stable condition, no s/s of distress noted. No complaints of pain. Telemetry in place and working. Bed in lowest position and locked. call light within reach.
--- NOTE | 2019-10-23 21:02 | Progress Note ---
DATE: 10/23/2019 SUBJECTIVE: The patient is seen at bedside having some discomfort to the right lower extremity. He is denying any history of fever, chills, nausea, or vomiting. OBJECTIVE: VITAL SIGNS: Afebrile, pulse rate 75, respirations 18, blood pressure 196/74, and O2 saturation 95%. EXTREMITIES: Right lower extremity looking a little bit worse, mottled appearance to the forefoot aspect right foot with dry gangrenous changes noted to the right 2nd toe with some mottled appearance up to the mid foot area. Skin temperature is warm to touch up to the mid foot, cool distally. ASSESSMENT: Severe peripheral arterial disease with anterior tibial runoff with gangrene and pain. PLAN: After having a long discussion approximately 25 to 30 minutes with the patient and patient's family member on the phone, the patient was instructed there is only way to salvage the leg is to do a possible transmetatarsal amputation, but no guarantees can be given. The patient elected to have a definitive one time procedure, which will include a nkjzf-kpa-pibd amputation. Dr. Bereket Cid will be consulted. We will continue to follow the patient until the procedure is done to make sure no further proximal migration of any type of infection. We will continue IV antibiotics and local wound care. Dr. Bereket Cid will be consulted for agvlf-wls-kkju amputation. ANGELA Barrera/DULCE /[id number]
[2019-10-23] MEDS: PRAVASTATIN 20 MG TAB PO SCH (21:21)
[2019-10-23] MEDS: INSULIN GLARGINE 100 UNITS/ML VIAL SQ SCH (21:22)
--- NOTE | 2019-10-23 21:43 | NUR ---
Spoke to Dr. Salome Cid regarding new consult. No new orders, will see patient in AM.
[2019-10-24] VITALS (8 sets, daily range): BP systolic 134–168; BP diastolic 68–84
[2019-10-24] MEDS: CEFEPIME 1GM/NS 0.9% 50 ML 50 ML IV SCH ×2 (00:30→14:18)
[2019-10-24] MEDS: LINEZOLID 600 MG/D5W 300ML 300 ML IV SCH ×2 (02:59→15:53)
[2019-10-24] MEDS: MORPHINE SULFATE 2 MG/ML SYR 1ML IV PRN ×2 (03:00→08:53)
[2019-10-24] MEDS: NIFEDIPINE CR 30 MG TAB PO SCH (05:45)
[2019-10-24] MEDS: SODIUM CHLORIDE 0.9% 1000ML 1,000 ML IV SCH ×3 (06:02→21:50)
[2019-10-24] MEDS: CYCLOSPORINE 25 MG CAP PO SCH ×2 (06:02→21:10)
[2019-10-24] MEDS: INSULIN LISPRO 100 UNIT/1 ML 3ML VIAL SQ SCH ×4 (07:44→21:00)
[2019-10-24] MEDS: CALCIUM CARBONATE 500 MG CHEWABLE TABS PO SCH (08:45)
[2019-10-24] MEDS: SIROLIMUS 1 MG PO SCH (08:45)
[2019-10-24] MEDS: CHOLECALCIFEROL 1,000 UNIT TAB PO SCH (08:45)
[2019-10-24] MEDS: PREDNISONE 5 MG TAB PO SCH (08:45)
[2019-10-24] MEDS: TRIMETHOPRIM/SULFAMETHOXAZOLE 160-800 MG TAB PO SCH (08:45)
[2019-10-24] MEDS: ASPIRIN 81 MG CHEW TAB PO SCH (08:45)
[2019-10-24] MEDS: METOPROLOL SUCCINATE 50 MG TAB XL PO SCH ×2 (08:45→16:44)
--- NOTE | 2019-10-24 11:29 | Progress Note ---
DATE: 10/24/2019 SUBJECTIVE: The patient is seen at the bedside, still having some discomfort and tenderness to the right lower extremity from the midfoot distally. He is denying any history of fever, chills, nausea, or vomiting. OBJECTIVE: VITAL SIGNS: Afebrile, pulse rate 69, respiration 14, blood pressure 134/84, O2 saturation 99%. EXTREMITIES: Has cyanosis of the forefoot aspect, right foot. Some ascending streaking noted from the midfoot down to the talotibial joint, mottled appearance to the plantar aspect of the right lower extremity with gangrenous changes noted to the 2nd toe in right lower extremity. Pedal pulses greatly diminished. LABORATORY DATA: Labs show white blood cell count of 11.12, hemoglobin 10.1. ASSESSMENT: Peripheral arterial disease, cellulitis, gangrene with diabetic neuropathy. PLAN: Continue IV antibiotics and local wound care. Continue offloading. Dr. Cid will be evaluating the patient for a possible epubh-kbg-gizi amputation. We will continue to follow until the amputation is done. ANGELA Barrera/DULCE /[id number]
--- NOTE | 2019-10-24 11:54 | Progress Note ---
DATE: SUBJECTIVE: Mr. Sepulveda is a pleasant 79-year-old gentleman, came to the hospital with complaint of infected right foot with necrotic toe. The patient seen by multiple specialties including Podiatry and Cardiology. Please refer to the previous notes in regard to Cardiology findings. However, patient has severe PAD that may end up with BKA. OBJECTIVE: VITAL SIGNS: Temperature 98.2, pulse 62, respirations 14, blood pressure 134/84, temperature is reviewed and T-max was 100.9 night before last night. ALLERGIES: NO KNOWN ALLERGIES. LABORATORY STUDIES: White blood cells 11.12, hemoglobin 10.1, platelet 312. Creatinine is 1.02. MICROBIOLOGY: Blood cultures negative x4 from 10/17/2019 and 10/23/2019. IMAGING: No new. RADIOLOGY STUDIES: Available. MEDICATIONS: Medication list reviewed. As far as Infectious Disease point of view, the patient is on: 1. Cefepime. 2. Bactrim, prophylactic on Tuesday, Tuesday, Tuesday secondary to renal transplant. 3. Zyvox. REVIEW OF SYSTEMS: No nausea, vomiting, fever, chills, chest pain, shortness of breath, cough, sweats, dysuria. PHYSICAL EXAMINATION: GENERAL: Alert and oriented, in no acute distress. CV: S1-S2. CHEST: Equal expansion. Clear to auscultation. No acute distress. ABDOMEN: Soft and nontender. No distention. HEENT: Moist. No pallor. No JVD. EXTREMITIES: Right foot 2nd toe dry gangrene with extension of cellulitis down to almost his ankle with some wet-infected wounds on the plantar aspect of the foot, right before the phalanges. ASSESSMENT AND PLAN: 1. Infected right foot 2nd toe. 2. Cellulitis of the right foot. 3. Acute renal failure. 4. Compromised status post renal transplant. 5. Chronic pain. 6. Hypertension. 7. Diabetes. 8. Hyperlipidemia. 9. Severe peripheral arterial disease. Please see Cardiology workup. Reviewed podiatry note stating that I had a long discussion with the patient and family. Apparently, the patient wanted to have only one surgery and that would lead up to BKA and I wait General Surgery input. Please refer to the chart for more information. The patient is currently comfortable in bed in no acute distress. Dictated by Maurisio Gonzalez PA-C (Al) MD DAVON Bower/DULCE /[id number]
--- NOTE | 2019-10-24 14:55 | Progress Note ---
DATE: 10/24/2019 Cardiology Progress Note SUBJECTIVE: Denies any chest pain. Denies any shortness of breath. No other complaints today. OBJECTIVE: VITAL SIGNS: Temperature 98.4, heart rate 68, blood pressure 168/71, respiratory rate 16, and O2 saturation 95%. GENERAL: No acute distress, alert. NECK: No JVD. CHEST: Clear to auscultation. CARDIOVASCULAR: Regular rate and rhythm. Normal S1, S2. ABDOMEN: Soft. Bowel sounds positive. EXTREMITIES: No edema. Right foot gangrenous changes in the 1st and 2nd forefoot. CARDIOVASCULAR MEDICATIONS: Reviewed, metoprolol succinate 100 mg b.i.d., aspirin 81 mg daily, hydralazine 25 mg every 4 hours, pravastatin 10 mg at bedtime, and nifedipine 30 mg daily. STUDIES: Reviewed, potassium 4.1, creatinine 1.02. White blood cells 11.1, hemoglobin 10, platelets 312,000. ASSESSMENT AND PLAN: A 79-year-old man with PVD presenting with infected and gangrenous right forefoot, hypertension, diabetes, dyslipidemia, CKD status post orthotopic renal transplant on immunosuppressive therapy. RECOMMENDATIONS: 1. Continue current cardiovascular medications. 2. Moderate risk for adverse cardiovascular outcomes with noncardiac surgery. 3. General surgery consulted for possible BKA. Jaswinder Bell MD AFRachelle/SANTOL /[id number]
[2019-10-24] MEDS: MORPHINE SULFATE INJ 4 MG/ML INJ 1ML IV PRN ×2 (16:45→23:58)
[2019-10-24] MEDS: INSULIN GLARGINE 100 UNITS/ML VIAL SQ SCH (21:00)
[2019-10-24] MEDS: PRAVASTATIN 20 MG TAB PO SCH (21:10)
--- NOTE | 2019-10-24 21:32 | NUR ---
Patient informed of upcoming surgical procedure---Right Below Knee amputation and NPO status after midnight. Patient verbalized understanding and voluntarily signed "Disclosure and Consent" forms.
[2019-10-24] MEDS: HYDRALAZINE HCL 25 MG TAB PO PRN (23:58)
[2019-10-25] VITALS (9 sets, daily range): BP systolic 130–178; BP diastolic 54–78
[2019-10-25] MEDS: CEFEPIME 1GM/NS 0.9% 50 ML 50 ML IV SCH ×2 (00:06→12:00)
[2019-10-25] MEDS: LINEZOLID 600 MG/D5W 300ML 300 ML IV SCH ×2 (03:15→15:45)
[2019-10-25] MEDS: MORPHINE SULFATE INJ 4 MG/ML INJ 1ML IV PRN ×2 (04:00→09:41)
[2019-10-25] MEDS: SODIUM CHLORIDE 0.9% 1000ML 1,000 ML IV SCH ×2 (05:30→16:10)
--- NOTE | 2019-10-25 06:00 | NUR ---
Dr. Driver paged regarding elevated BP of 178/76. Awaiting call back.
[2019-10-25] MEDS: CYCLOSPORINE 25 MG CAP PO SCH (06:31)
[2019-10-25] MEDS: NIFEDIPINE CR 30 MG TAB PO SCH (06:31)
--- NOTE | 2019-10-25 06:32 | NUR ---
Dr. Salome Cid notified of elevated BP of 178/76 and HR of 61. stated it was OK for patient to take 0600 medications with a little sip of water. Nifedipine CR 30 mg PO and Cyclosporine 50 mg PO administered per eMAR.
--- NOTE | 2019-10-25 06:45 | NUR ---
Patient resting comfortably. Walking rounds done. BSSR given to oncoming nurse regarding patient's status.
[2019-10-25] MEDS: INSULIN LISPRO 100 UNIT/1 ML 3ML VIAL SQ SCH ×4 (07:30→21:00)
[2019-10-25] MEDS: METOPROLOL SUCCINATE 50 MG TAB XL PO SCH ×2 (07:59→17:55)
[2019-10-25] MEDS: HYDRALAZINE HCL 25 MG TAB PO PRN (07:59)
[2019-10-25] MEDS: ASPIRIN 81 MG CHEW TAB PO SCH (09:00)
[2019-10-25] MEDS: SIROLIMUS 1 MG TABLET PO SCH (09:00)
[2019-10-25] MEDS: CHOLECALCIFEROL 1,000 UNIT TAB PO SCH (09:00)
[2019-10-25] MEDS: CALCIUM CARBONATE 500 MG CHEWABLE TABS PO SCH (09:00)
--- NOTE | 2019-10-25 11:18 | Progress Note ---
DATE: SUBJECTIVE: The patient is comfortable in bed. No complaints. REVIEW OF SYSTEMS: No nausea, vomiting, fever, chills, chest pain, shortness of breath. Pain is controlled. ALLERGIES: NO KNOWN ALLERGIES. PHYSICAL EXAMINATION: VITAL SIGNS: Temperature 98.6, pulse 69, respiration 19, blood pressure 174/78. GENERAL: Comfortable in bed, seems to be alert and oriented, no acute distress. CV: S1, S2. CHEST: Equal expansion. Clear to auscultation. No acute distress. HEENT: Moist. No pallor. No JVD. EXTREMITIES: Right toe infection with gangrene and cellulitis of the foot up to the ankle. LABORATORY STUDIES: White blood cells 11.12, hemoglobin 10.1, platelets 312. No new BMP. The patient's estimated GFR is greater than 60. MICROBIOLOGY: Blood cultures negative x4. RADIOLOGY: No new radiology studies available. ASSESSMENT AND PLAN: This is a pleasant 79-year-old gentleman, admitted with cellulitis of the foot and gangrene toe of the right foot, and complicated past medical history including hypertension, diabetes, PVD. The patient is status post renal transplant, pending BKA most likely today, actually that is just with the General Surgery. The patient remains on cefepime and Zyvox, the patient also on Bactrim prophylactically. Continue to monitor the patient clinically, follow up with the labs. Most likely stop cefepime and Zyvox after amputation. This case was discussed with Dr. Esparza. Thank you for this dictation. Please refer to chart for more information. Dictated by Maurisio Gonzalez PA-C (Al) Andres Esparza MD /MODL /[id number]
--- NOTE | 2019-10-25 11:40 | NUR ---
Patient off the unit for procedure.,BP was 168/67, talked to OR nurse regarding BP, She talked to Anesthesiology ,they said No Need to give PRN Hydralazine IV, Antibiotic due at 12NOON Sent with patient, patient is stable, talked to family
[2019-10-25] MEDS ORDERED: ACETAMINOPHEN 1000 MG/100 ML IV PRN (14:45)
[2019-10-25] MEDS ORDERED: FENTANYL CITRATE/PF 100MCG/2 ML INJ ONE (14:50)
--- NOTE | 2019-10-25 15:32 | NUR ---
Recvd patient from PACU, AAOx3, Not in any distress, dressing on Rt Stump is intact, clean and dry with immobilizer, HOB elevated t0 45 degree, keep monitoring
--- NOTE | 2019-10-25 16:09 | Operative Report ---
DATE OF PROCEDURE: 10/25/2019 SURGEON: Bereket Cid MD PREOPERATIVE DIAGNOSES: Gangrene of the right foot and non-reconstructible peripheral vascular disease. POSTOPERATIVE DIAGNOSES: Gangrene of the right foot and non-reconstructible peripheral vascular disease. OPERATION PERFORMED: Right below-knee amputation. PORTFOLIO DIRECTOR: VERA Johnson. ANESTHESIA: General. COMPLICATIONS: None. ESTIMATED BLOOD LOSS: Minimal. DESCRIPTION OF PROCEDURE: With the patient lying in bed in the supine position under good general endotracheal anesthesia, the right lower leg was prepped with Betadine solution and draped in the usual manner. An incision was then marked, but then made lower right leg to have up a longer posterior flap. The incision was then deepened through the subcutaneous tissue all the way down to the tibia. The fascia was then opened all the way around. The muscle girdle was then divided with the cautery around both the tibia and the fibula, and the tibia and fibula were both divided roughly about 2 inches above the skin incision with a Gigli saw. After this was done, the posterior girdle of the musculature was then divided with the cautery with all the blood vessels being ligated with 0 silk and the leg was thus taken off and sent for pathological examination. The whole area was then thoroughly irrigated. Perfect hemostasis was ascertained with the cautery or with 3-0 Vicryl suture ligatures. Once hemostasis was ascertained. The wound was then closed in layers with the fascia being reapproximated with interrupted sutures of 2-0 Vicryl and the skin being closed with interrupted vertical mattress sutures of 3-0 silk. A dressing was applied including an immobilizer. Lap, sponge, and needle count was correct. The patient tolerated the procedure well and returned to the recovery room in stable condition. Bereket Cid MD JLR/MODL /[id number]
--- NOTE | 2019-10-25 16:28 | NUR ---
Nutrition Intervention Note RD Recommendation(s) for Physician: -Continue ADA diet -Rec Aleksandr BID, renal MVI w/ vitamin C for wound healing (s/p BKA) Plan of Care: RD following, monitoring for tolerance and adequacy, ONS rec Nutrition reason for involvement: Follow up RD Assessment: (10/24) Following up on this pt. Pt was off unit for R BKA. Prior to surgery, pt was eating 50-75% of meals. Per RN, pt has no GI related issue noted. +BM. No chemistry labs since 10/22. Pt will benefit from oral nutrition supplement and MVI s/p R BKA. Will continue to monitor and follow. (10/18/19) Chart reviewed. Labs and meds reviewed. Pt is a 79 year old male admitted with gangrene of the toe of right foot. Attempted to call patient, but he did not answer. Therefore, spoke to RN who reported pt is eating >50% of meals. No weight loss is evident per weight history. Will continue to monitor. 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 Will re-evaluate at follow-up as appropriate. Nutrition Prescription (Diet Order): NPO for surgery Estimated Nutritional Needs: Calories: 1450 1740kcal (25-30kcal/kg/d) Weight used : adjusted IBW Protein : 58 87g(1-1.5g/kg/d) Weight used: adjusted IBW Diet Adequacy: NPO Tolerance: Tolerating PO prior to surgery Diet Education Needs Assessment: Diet education not indicated. Nutrition Care Level: low Nutrition Diagnosis: Increased protein needs related to altered skin integrity as evidenced by s/p R BKA. Goal: Patient will meet 75-100% of estimated needs by follow up Progress: N/A Interventions: Carbohydrate-modified diet, Commercial food, Prescription medications Monitoring/Evaluation: Total energy intake, Total protein intake, Prescription medication, Modified diet, Supplement, Weight change Signed: Fern Hahn MS, RD, LD
[2019-10-25] MEDS: ONDANSETRON HCL 4 MG ORAL DISINTEGRATING TAB PO PRN (17:54)
[2019-10-25] MEDS: HYDROMORPHONE 1MG/1ML INJ IV PRN ×2 (18:01→21:48)
[2019-10-25] MEDS ORDERED: ONDANSETRON HCL INJ 2MG/ML 2ML 2 MG/ML VIAL ONE (19:28)
[2019-10-25] MEDS ORDERED: LIDOCAINE HCL 2% LOCAL INJ 5 ML SDV VIAL INJ ONE (19:28)
[2019-10-25] MEDS ORDERED: PROPOFOL IV EMULSION 10 MG/ML 20 ML VIAL ONE (19:28)
[2019-10-25] MEDS ORDERED: SEVOFLURANE INHAL SOLN 250 ML PEN BTL ONE (19:28)
--- NOTE | 2019-10-25 19:30 | NUR ---
Patient received lying in bed. AAO x 3. Patient had no complaints of pain. No signs of respiratory distress. Dressing to right foot CDI. HOB elevated to 45 degrees. IVF infusing at 100 cc/hr. Fall precautions implemented. Call light within reach.
[2019-10-25] MEDS: HYDROCODONE/APAP 7.5MG-325MG 1 EA TAB PO PRN (19:53)
[2019-10-25] MEDS: INSULIN GLARGINE 100 UNITS/ML VIAL SQ SCH (21:00)
[2019-10-25] MEDS: PRAVASTATIN 20 MG TAB PO SCH (21:40)
[2019-10-26] VITALS (9 sets, daily range): BP systolic 141–168; BP diastolic 55–74
[2019-10-26] MEDS: CEFEPIME 1GM/NS 0.9% 50 ML 50 ML IV SCH (00:46)
[2019-10-26] MEDS: SODIUM CHLORIDE 0.9% 1000ML 1,000 ML IV SCH (01:30)
[2019-10-26] MEDS: LINEZOLID 600 MG/D5W 300ML 300 ML IV SCH (02:40)
[2019-10-26 05:37] LABS: BASOPHILS % 0.3 % (0.0-1.0); EOSINOPHILS # (AUTO) 0.2 (0.0-0.4); EOSINOPHILS % 1.9 % (0.0-6.0); HEMATOCRIT 31.6 % (38.2-49.6); HEMOGLOBIN 10.1 g/dL (14.0-18.0); LYMPHOCYTES # (AUTO) 0.6 (1.0-3.2); LYMPHOCYTES % 5.7 % (18.0-39.1); MEAN CORPUSCULAR HEMOGLOBIN 27.5 pg (28-32); MEAN CORPUSCULAR VOLUME 86.1 fL (81-99); MONOCYTES # (AUTO) 0.9 (0.2-0.8); MONOCYTES % 9.5 % (4.4-11.3); NEUTROPHILS # (AUTO) 8.1 (2.1-6.9); NEUTROPHILS % 82.1 % (38.7-80.0); PLATELET COUNT 301 x10e3/uL (140-360); RED BLOOD COUNT 3.67 x10e6/uL (4.3-5.7); RED CELL DISTRIBUTION WIDTH 13.9 % (11.7-14.4)
[2019-10-26] MEDS: NIFEDIPINE CR 30 MG TAB PO SCH (06:00)
[2019-10-26 06:02] LABS: ALANINE AMINOTRANSFERASE 14 IU/L (0-55); ALBUMIN/GLOBULIN RATIO 0.5 (0.8-2.0); ALKALINE PHOSPHATASE 132 IU/L (40-150); ANION GAP 9.5 mmol/L (8-16); BLOOD UREA NITROGEN 9 mg/dL (7-26); BUN/CREATININE RATIO 10 (6-25); CALCIUM 7.7 mg/dL (8.4-10.2); CARBON DIOXIDE 19 mmol/L (22-29); CHLORIDE 111 mmol/L (98-107); CREATININE, SERUM 0.86 mg/dL (0.72-1.25); EST GLOMERULAR FILTRATION RATE > 60 ML/MIN (60-); GLUCOSE 134 mg/dL (74-118); POTASSIUM 4.5 mmol/L (3.5-5.1); SODIUM 135 mmol/L (136-145)
[2019-10-26] MEDS: HYDROMORPHONE 1MG/1ML INJ IV PRN ×3 (06:05→22:40)
--- NOTE | 2019-10-26 06:50 | NUR ---
Walking rounds done. Shift report given to oncoming nurse regarding patient's health status. .
--- NOTE | 2019-10-26 07:10 | NUR ---
RCD PT AT BED PT IS ALERT AND ORIENTED PT RESTING ON BED NO SIGNS OF ANY DISTRESS NOTED IV PATENT BED LOW AND LOCKED CALL LIGHT IN REACH
[2019-10-26] MEDS: INSULIN LISPRO 100 UNIT/1 ML 3ML VIAL SQ SCH ×4 (07:30→20:30)
[2019-10-26] MEDS: METOPROLOL SUCCINATE 50 MG TAB XL PO SCH ×2 (09:00→16:47)
[2019-10-26] MEDS: ASPIRIN 81 MG CHEW TAB PO SCH (09:00)
[2019-10-26] MEDS: SIROLIMUS 1 MG TABLET PO SCH (09:00)
[2019-10-26] MEDS: CALCIUM CARBONATE 500 MG CHEWABLE TABS PO SCH (09:00)
[2019-10-26] MEDS: CHOLECALCIFEROL 1,000 UNIT TAB PO SCH (09:00)
[2019-10-26] MEDS ORDERED: TRIMETHOPRIM/SULFAMETHOXAZOLE 160-800 MG TAB PO SCH (09:00)
[2019-10-26] MEDS: HYDROCODONE/APAP 7.5MG-325MG 1 EA TAB PO PRN ×3 (09:49→20:30)
--- NOTE | 2019-10-26 10:17 | Progress Note ---
DATE: SUBJECTIVE: Mr. Sepulveda is a pleasant 79-year-old gentleman, admitted with infected right foot, which was nonhealing, seen by multiple specialties including Podiatry and the decision was possibly made to get a BKA. Based on his arteriogram and presentation of the wound, which was nonhealing, currently comfortable in bed, no acute distress. REVIEW OF SYSTEMS: No nausea, vomiting, fever, chills, chest pain, shortness of breath, headache, dysuria, polyuria. OBJECTIVE: VITAL SIGNS: Temperature is 97.8, pulse is 73, respirations 16, blood pressure 168/59. GENERAL: Alert and oriented, very pleasant, in no acute distress. Appetite is good. Pain is controlled. CV: S1, S2. CHEST: Equal expansion, clear to auscultation, no acute distress. HEENT: Moist. No pallor. No JVD. EXTREMITIES: Moves all. No acute finding. Right BKA dressed with brace supported. MEDICATIONS: Medication list reviewed. As far as Infectious Disease point of view, the patient is on cefepime and Zyvox. LABORATORY STUDIES: White count improved to 9.85 with hemoglobin 10.1 and platelet count of 301. Sodium is 135, potassium 4.5, creatinine 0.86. MICROBIOLOGY: Blood culture negative on 10/16 and 10/22. RADIOLOGY STUDIES: No new radiology studies available. The patient is status post PICC line placement on the right upper extremity. ASSESSMENT AND PLAN: 1. Infected right foot with peripheral arterial disease. 2. Non-nonhealing wound. 3. Leukocytosis, resolved. 4. Renal transplant, on Bactrim prophylactically. We stop Zyvox and cefepime, continue with Bactrim. Discussed with Dr. Esparza. Please refer to chart for more information. Dictated by Maurisio Gonzalez PA-C (Al) Andres Esparza MD /MODL /[id number]
--- NOTE | 2019-10-26 11:00 | NUR ---
AC TO DR MARCIA FOSTER PT DONT LIKE TO GO TO [facility] NOTIFIED TO PAULO SHE SAID SHE WILL TALK TO THE CORK INSULATION INSTALLER AND ARRANGE IT
--- NOTE | 2019-10-26 13:37 | Progress Note ---
DATE: 10/26/2019 Cardiology Progress Note SUBJECTIVE: Denies any chest pain or shortness of breath. Pain adequately controlled. OBJECTIVE: VITAL SIGNS: Temperature 97.8, heart rate 79, blood pressure 156/78, O2 saturation 98%. GENERAL: No acute distress, alert. NECK: No JVD. CHEST: Clear to auscultation. CARDIOVASCULAR: Regular rate and rhythm. Normal S1 and S2. No S3 or S4. ABDOMEN: Soft. Bowel sounds positive. EXTREMITIES: Right BKA stump covered with dressings. Left lower extremity without edema. Warm distal extremities. CARDIOVASCULAR MEDICATIONS: Reviewed. STUDIES: Reviewed. Remarkable for creatinine of 0.8, hemoglobin 10. ASSESSMENT AND PLAN: 1. Peripheral arterial disease status post right below knee amputation. 2. Chronic kidney disease, on immunosuppressive therapy for renal transplant. 3. Diabetes, hypertension and dyslipidemia. RECOMMENDATIONS: Continue current cardiovascular medications. Monitor H and H. Pain control as needed. MD MIRELLA Bates/DULCE /[id number]
--- NOTE | 2019-10-26 15:13 | NUR ---
ORDERS FOR [facility] CM SPOKE WITH PT VIA CRM MANAGER PT ADIMATELY REFUSING TO GO ANYWHERE BESIDES HOME DR SHETTY AND DR Song PENA AWARE PLAN IS HOME TUE OR WITH HOMEHEALTH CHOICE LETTER SIGNED FOR INTERIM HOME HEALTH SKILLED NURSE/PT/OT BISHOP PH: [phone] FAX: [phone] SPOKE WITH JOAQUINA MENDOZA FAXED CLINICAL ; CONFIRMATION REC'D WILL NEED TO FAX P.T. NOTES WHEN AVAILABLE DME 3 IN 1 COMMODE AND WHEELCHAIR WITH ELEVATED LEGS CHOICE LETTER FOR [facility] SIGNED AND ON CHART CLINICALS FAXED TO [employer] SPOKE WITH SHASHANK TEJEDA PH: [phone] FAX: [phone] NOTE ON CHART FOR DR SHETTY TO DOCUMENT IN PROGRESS NOTES WILL NEED TO FAX THEM TUESDAY WHEN AVAILABLE PLAN DC HOME TUESDAY OR TUESDAY DRESSING WILL BE CHANGED ON DAY OF DISCHARGE BY DR PENA AND 1 WEEK LATER IN HIS OFFICE
[2019-10-26] MEDS: SODIUM BICARBONATE 650 MG TAB PO SCH (16:47)
--- NOTE | 2019-10-26 17:00 | NUR ---
PT recommends SNF/IPR placement. Pt can go home if sons will provide assistance with any OOB activities. Pt will need a W/C and 3-1 BSC with drop arm functionality. Addendum: 10/26/19 at 2239 by Bill Saucedo PT Amended: Links added.
--- NOTE | 2019-10-26 18:41 | NUR ---
PT RESTING ON BED BED SIDE REPORT GIVE TO ONCOMING NURSE
--- NOTE | 2019-10-26 19:09 | Consultation ---
DATE OF CONSULTATION: 10/26/2019 REASON FOR CONSULTATION: Right BKA status post knee. HISTORY: Mr. Sepulveda is a very pleasant, but unfortunate 79-year-old Latin male with severe peripheral vascular disease, underwent evaluation by Dr. Rudd and then evaluation for further treatment, resulted in him getting a right below-knee amputation. I am being asked to evaluate for rehab needs. PAST MEDICAL HISTORY: 1. PVD. 2. Diabetes. 3. History of kidney transplant. 4. CKD. 5. Peripheral vascular disease. 6. Insulin treated diabetes. PAST SURGICAL HISTORY: 1. TURP back. 2. Previous left TMA. 3. Right toe amputations. ALLERGIES: NO KNOWN DRUG ALLERGIES. SOCIAL HISTORY: Lives with in one-story home, somewhat mobile. Could not really elaborate a whole lot. LABORATORY DATA: White cell count of 9.8, hemoglobin 10.1, hematocrit 31.6, platelets of 301. Sodium is 135, potassium 4.5, BUN of 9, creatinine 0.96. PHYSICAL EXAMINATION: GENERAL: Awake, alert, no apparent distress at this time. Follows commands. EYES: Extraocular muscles intact. ORAL: Tongue is midline. NECK: Supple. LUNGS: He is breathing well. ABDOMEN: Moderately obese. EXTREMITIES: He has a knee immobilizer, right BKA with a postop dressing on. He moves his left leg fairly well. Manual muscle testing 0/5 strength with advertising representative and elbow flexion ranges of arms above his head. The right lower extremity demonstrates 4-/5 strength and on left lower extremity, he is able to flex his hip IMPRESSION: 1. Right BKA. 2. Diabetes. 3. Peripheral vascular disease. PLAN: The patient . He will not go to inpatient rehab. He wants to go home. Thank you once again for allowing me to participate in the care of this very interesting patient. Curt Ag DO RPL/MODL /[id number]
--- NOTE | 2019-10-26 19:10 | NUR ---
Patient visited in room during nursing rounds. Patient alert and oriented x3. Pt Italian speaking only. S/P Right BKA on 10/25/19 and with stump covered with surgical dressing (C/D/I) and wrapped with leg stabilizer. Pt being medicated with pain med accordingly. On bed rest. Call cordero within reach.
[2019-10-26] MEDS: PRAVASTATIN 20 MG TAB PO SCH (20:30)
[2019-10-26] MEDS: INSULIN GLARGINE 100 UNITS/ML VIAL SQ SCH (20:30)
[2019-10-27] VITALS (9 sets, daily range): BP systolic 135–173; BP diastolic 52–78
[2019-10-27] MEDS: HYDROMORPHONE 1MG/1ML INJ IV PRN ×3 (02:35→23:31)
[2019-10-27] MEDS: NIFEDIPINE CR 30 MG TAB PO SCH (05:20)
[2019-10-27 05:49] LABS: BASOPHILS % 0.2 % (0.0-1.0); EOSINOPHILS # (AUTO) 0.1 (0.0-0.4); EOSINOPHILS % 1.2 % (0.0-6.0); HEMATOCRIT 29.9 % (38.2-49.6); HEMOGLOBIN 9.7 g/dL (14.0-18.0); LYMPHOCYTES # (AUTO) 0.5 (1.0-3.2); LYMPHOCYTES % 5.6 % (18.0-39.1); MEAN CORPUSCULAR HEMOGLOBIN 27.6 pg (28-32); MEAN CORPUSCULAR HGB CONC 32.4 g/dL (31-35); MEAN CORPUSCULAR VOLUME 84.9 fL (81-99); MONOCYTES # (AUTO) 1.1 (0.2-0.8); MONOCYTES % 10.8 % (4.4-11.3); NEUTROPHILS # (AUTO) 7.9 (2.1-6.9); NEUTROPHILS % 81.8 % (38.7-80.0); PLATELET COUNT 270 x10e3/uL (140-360); RED BLOOD COUNT 3.52 x10e6/uL (4.3-5.7); RED CELL DISTRIBUTION WIDTH 13.9 % (11.7-14.4)
[2019-10-27] MEDS: HYDROCODONE/APAP 7.5MG-325MG 1 EA TAB PO PRN ×2 (05:58→16:30)
[2019-10-27 06:04] LABS: ANION GAP 8.3 mmol/L (8-16); BLOOD UREA NITROGEN 8 mg/dL (7-26); BUN/CREATININE RATIO 9 (6-25); CALCIUM 8.2 mg/dL (8.4-10.2); CARBON DIOXIDE 24 mmol/L (22-29); CHLORIDE 111 mmol/L (98-107); CREATININE, SERUM 0.86 mg/dL (0.72-1.25); EST GLOMERULAR FILTRATION RATE > 60 ML/MIN (60-); GLUCOSE 90 mg/dL (74-118); POTASSIUM 4.3 mmol/L (3.5-5.1); SODIUM 139 mmol/L (136-145)
--- NOTE | 2019-10-27 07:15 | NUR ---
RCD PT AT BED PT IS ALERT AND ORIENTED PT RESTING ON BED NO SIGNS OF ANY DISTRESS NOTED IV PATENT BY SALINE FLUSH SKIN TEAR NOTED ON THE RT ELBOW APPLIED VASELINE GAUZE DRESSING BED LOW AND LOCKED CALL LIGHT IN REACH
[2019-10-27] MEDS: INSULIN LISPRO 100 UNIT/1 ML 3ML VIAL SQ SCH ×4 (07:30→21:00)
[2019-10-27] MEDS: SODIUM BICARBONATE 650 MG TAB PO SCH ×2 (09:00→17:00)
[2019-10-27] MEDS: METOPROLOL SUCCINATE 50 MG TAB XL PO SCH ×2 (09:00→17:00)
[2019-10-27] MEDS: CHOLECALCIFEROL 1,000 UNIT TAB PO SCH (09:00)
[2019-10-27] MEDS: SIROLIMUS 1 MG TABLET PO SCH (09:00)
[2019-10-27] MEDS: CALCIUM CARBONATE 500 MG CHEWABLE TABS PO SCH (09:00)
[2019-10-27] MEDS: ASPIRIN 81 MG CHEW TAB PO SCH (09:00)
--- NOTE | 2019-10-27 12:15 | NUR ---
AC TO DR Marshall PENA PT IS OK TO GO TO REHAB NOTIFIED THE [place]LLS INSPECTOR SHE SAID NEED TO PUT RECONSULT WITH DR VIDAL
--- NOTE | 2019-10-27 12:39 | NUR ---
Rec'd order for acute rehab hospital. Spoke w/ pt nurse, Mila CARRILLO and she stated pt decided to go to acute rehab. CM met with pt and he told CM in [place] that he wants to go to [facility]. Choice letter signed. Copy to Transition Folder at bedside, and original placed in chart.
--- NOTE | 2019-10-27 13:16 | Progress Note ---
DATE: 10/27/2019 Cardiology Progress Note SUBJECTIVE: No chest pain or shortness of breath. OBJECTIVE: VITAL SIGNS: Temperature 97 degrees, heart rate 72, blood pressure 151/52, respiratory rate 18, and O2 saturation 96%. GENERAL: In no acute distress, alert. NECK: No JVD. CHEST: Clear to auscultation. CARDIOVASCULAR: Regular rate and rhythm. Normal S1, S2. No S3 or S4. ABDOMEN: Soft. Bowel sounds positive. EXTREMITIES: His right lower extremity with BKA stump, covered with dressings. The left lower extremity without edema. Warm distal extremities. CARDIOVASCULAR MEDICATIONS: Reviewed. Nifedipine 30 mg daily, hydralazine 25 mg every 4 hours, pravastatin 10 mg at bedtime, and hydralazine p.r.n. STUDIES: Reviewed. Sodium 139, potassium 4.3, chloride 111, bicarbonate 24, BUN 8, creatinine 0.86, and glucose 90. White blood cells 9.6, hemoglobin 9.7, and platelets 270. PT 15.7, PTT 33.1, and INR 1.17. AST 27, ALT 14, alkaline phosphatase 132, and total bilirubin 0.6. ASSESSMENT AND PLAN: A 79-year-old man with peripheral arterial disease, status post right [id number] amputation, hypertension, dyslipidemia, diabetes mellitus, and chronic kidney disease, status post orthotopic renal transplant. RECOMMENDATIONS: 1. Monitor H and H. 2. Added Crestor 10 mg at bedtime. Monitor immunosuppressive therapy per Renal expertise. 3. Continue rest of cardiovascular medications. MD MIRELLA Bates/DULCE /[id number]
--- NOTE | 2019-10-27 17:37 | Progress Note ---
DATE: 10/27/2019 SUBJECTIVE: Mr. Sepulveda is seen on rounds today. He is resting up at this time. Does not appear to be in distress at this time. No new complaints according to staff at this time. OBJECTIVE: VITAL SIGNS: On examination, temperature of 98.8 degrees, respirations of 18, heart rate 70, blood pressure of 135/61, O2 sats 98% on room air. LABORATORY DATA: White cell count of 9.69, hemoglobin 9.7, hematocrit 29.9, platelets of 270. ASSESSMENT AND PLAN: Clinically, he is doing about the same. No apparent distress. He just wants to go home. He in no way wants to go to inpatient rehab. Continue activity and we are working on discharge planning. Curt Ag DO RPL/MODL /[id number]
--- NOTE | 2019-10-27 19:00 | NUR ---
PT RESTING ON BED BED SIDE REPORT GIVE TO ONCOMING NURSE
--- NOTE | 2019-10-27 19:00 | NUR ---
Recieved pt in bed asleep, easily aroused, denies pain at this time. No s/sx of acute distress, dressing to rt stump intact. Bed in lowest position, personal items all within reach, call cordero at bedside.
[2019-10-27] MEDS: INSULIN GLARGINE 100 UNITS/ML VIAL SQ SCH (21:00)
[2019-10-27] MEDS: PRAVASTATIN 20 MG TAB PO SCH (21:00)
[2019-10-27] MEDS ORDERED: CRESTOR 10MG PO SCH (21:00)
[2019-10-27] MEDS: HYDRALAZINE HCL 20 MG/ML VIAL IV PRN (21:54)
[2019-10-28] VITALS (8 sets, daily range): BP systolic 138–175; BP diastolic 55–86
[2019-10-28] MEDS: NIFEDIPINE CR 30 MG TAB PO SCH (05:45)
[2019-10-28] MEDS: HYDRALAZINE HCL 20 MG/ML VIAL IV PRN (05:46)
[2019-10-28] MEDS: HYDROCODONE/APAP 7.5MG-325MG 1 EA TAB PO PRN ×2 (06:42→12:24)
--- NOTE | 2019-10-28 07:00 | NUR ---
Received bedside shift report from off going nurse. Patient in stable condition, No s/s of distress noted. No pain voice at this time. Telemetry in place and working. Immobilizer applied to the right lower extremity. Dressing clean dry and intact. Bed in lowest position and locked. Call light within reach. All personal items within reach.
[2019-10-28] MEDS: CALCIUM CARBONATE 500 MG CHEWABLE TABS PO SCH (08:57)
[2019-10-28] MEDS: CHOLECALCIFEROL 1,000 UNIT TAB PO SCH (08:57)
[2019-10-28] MEDS: ASPIRIN 81 MG CHEW TAB PO SCH (08:58)
[2019-10-28] MEDS: SODIUM BICARBONATE 650 MG TAB PO SCH ×2 (08:58→16:27)
[2019-10-28] MEDS: METOPROLOL SUCCINATE 50 MG TAB XL PO SCH ×2 (08:58→16:28)
[2019-10-28] MEDS: SIROLIMUS 1 MG TABLET PO SCH (09:03)
[2019-10-28] MEDS: INSULIN LISPRO 100 UNIT/1 ML 3ML VIAL SQ SCH ×4 (09:59→21:00)
[2019-10-28] MEDS ORDERED: BISACODYL 10 MG SUPP PR NR (10:30)
[2019-10-28] MEDS ORDERED: SENNA-S TABLET PO SCH (17:00)
[2019-10-28] MEDS: MAGNESIUM HYDROXIDE 30 ML UDC PO PRN (19:02)
--- NOTE | 2019-10-28 19:05 | Progress Note ---
DATE: 10/28/2019 Cardiology Progress Note SUBJECTIVE: Constipated. Denies any chest pain or shortness of breath. Stump site pain improved. OBJECTIVE: VITAL SIGNS: Temperature 97.9, heart rate 73, blood pressure 138/86, respiratory rate 18, O2 saturation 94%. GENERAL: In no acute distress, alert. NECK: No JVD. CHEST: Clear to auscultation. CARDIOVASCULAR: Regular rate and rhythm. Normal S1, S2. ABDOMEN: Soft. Bowel sounds positive. EXTREMITIES: No edema. Right BKA stump, covered with dressings. CARDIOVASCULAR MEDICATIONS: Reviewed. Nifedipine 30 mg daily, hydralazine 25 mg every 4 hours, pravastatin 10 mg at bedtime, aspirin 81 mg daily, metoprolol succinate 100 mg t.i.d. LABORATORY STUDIES: Reviewed. Creatinine 0.8, glucose 90. White blood cells 9.6, hemoglobin 9.7, platelets 270. ASSESSMENT: A 79-year-old man with peripheral arterial disease, status post right below knee amputation, diabetes, hypertension, dyslipidemia, constipation. RECOMMENDATIONS: Continue current cardiovascular medications. Jaswinder Bell MD AFV/MODL /[id number] MTDD
--- NOTE | 2019-10-28 19:05 | NUR ---
Bedside shift report given to oncoming nurse. Patient in stable condition, no s/s of distress noted. Telemetry in place and working. Oxygen @ 2 lpm/NC applied. Bed alarm in place and working. Bed in lowest position and locked. Call light within reach. All personal item within reach.
--- NOTE | 2019-10-28 19:30 | NUR ---
RECEIVED REPORT FROM DAY NURSE. PATIENT IS RESTING COMFORTABLY IN THE BED. BED IS IN THE LOWEST POSITION AND CALL LIGHT IS WITHIN REACH. WILL CONTINUE TO MONITOR PATIENT.
[2019-10-28] MEDS: INSULIN GLARGINE 100 UNITS/ML VIAL SQ SCH (21:00)
[2019-10-28] MEDS: PRAVASTATIN 20 MG TAB PO SCH (21:43)
[2019-10-29] VITALS (7 sets, daily range): BP systolic 117–158; BP diastolic 53–69
[2019-10-29] MEDS: NIFEDIPINE CR 30 MG TAB PO SCH (06:09)
--- NOTE | 2019-10-29 06:29 | NUR ---
PATIENT IS RESTING IN BED. BED IS IN LOWEST POSITION AND CALL LIGHT IS WITHIN REACH.
--- NOTE | 2019-10-29 07:25 | NUR ---
PATIENT IN BED RESTING WITH HEAD OF BED ELEVATED. DRESSING INTACT TO LEFT GROIN, RIGHT BKA WITH DRESSING AND IMMOBILIZER IN PLACE. BED IN LOWER POSITION, CALL LIGHT AT REACH.
[2019-10-29] MEDS: INSULIN LISPRO 100 UNIT/1 ML 3ML VIAL SQ SCH ×4 (07:30→22:26)
[2019-10-29] MEDS: SIROLIMUS 1 MG TABLET PO SCH (09:00)
[2019-10-29] MEDS: CALCIUM CARBONATE 500 MG CHEWABLE TABS PO SCH (09:25)
[2019-10-29] MEDS: TRIMETHOPRIM/SULFAMETHOXAZOLE 160-800 MG TAB PO SCH (09:25)
[2019-10-29] MEDS: SODIUM BICARBONATE 650 MG TAB PO SCH ×2 (09:25→17:22)
[2019-10-29] MEDS: ASPIRIN 81 MG CHEW TAB PO SCH (09:25)
[2019-10-29] MEDS: METOPROLOL SUCCINATE 50 MG TAB XL PO SCH ×2 (09:26→17:22)
[2019-10-29] MEDS: CHOLECALCIFEROL 1,000 UNIT TAB PO SCH (09:26)
--- NOTE | 2019-10-29 11:01 | NUR ---
DRESSING REINFORCED TO RIGHT BKA. PATIENT REPOSITIONED IN BED, CALL LIGHT AT REACH.
--- NOTE | 2019-10-29 11:31 | NUR ---
PT DISCUSSED IN MDR. BEDSIDE RN STATES THE SON, KAMRON @ [phone] WOULD LIKE TO SPEAK W MATTHIEU. CALL MADE TO SON, BUT NO ANSWER. LEFT . CALL TO [facility]. SPOKE W GABRIEL JEFFERSON. STATES THEY HAD NOT RECEIVED CLINICAL FOR THIS PT. WILL FAX REFERRAL TO [phone].
--- NOTE | 2019-10-29 11:43 | Progress Note ---
DATE: SUBJECTIVE: Mr. Sepulveda is a pleasant 79-year-old gentleman, complicated past medical history with infected right foot, which failed treatment also with severe PVD/PAD. The patient is now status post right BKA. The patient has a history of renal transplant on Bactrim prophylactically. REVIEW OF SYSTEMS: No nausea, no vomiting, no fever, no chills. No chest pain. No shortness of breath. No headache. No dysuria. No polyuria. PHYSICAL EXAMINATION: VITAL SIGNS: Temperature is 98.4, pulse is 77, respirations 16, blood pressure 135/63. GENERAL: Alert and oriented, no acute distress. HEENT: Moist. No pallor. NECK: No JVD. CV: S1, S2. CHEST: Equal expansion. Clear to auscultation. No acute distress. ABDOMEN: Soft. No tender. No distention. EXTREMITIES: Right BKA, dressed with brace. MEDICATIONS: Medication list reviewed as far as Infectious Disease point of view, the patient is on Bactrim Tuesday, Tuesday and Tuesday prophylactically. LABORATORY STUDIES: White blood cells 9.69 on 10/28 improved from 12.82, hemoglobin 9.7 with platelet of 270. No new BMP available. No new toxicology studies available. MICROBIOLOGY: Blood cultures negative from 10/22 and 10/16 RADIOLOGY STUDIES: No new radiology studies. ASSESSMENT: 1. Infected right foot with peripheral vascular disease/peripheral arterial disease, now status post below knee amputation. Continue with wound care. 2. Debility-continue with PT/OT. 3. Renal transplant/immunocompromised on Bactrim Tuesday, Tuesday, Tuesday prophylactically. 4. Hypertension. 5. Diabetes. 6. Chronic pain now with the pain of the right leg post amputation on hydromorphone, pain management per others. PLAN: 1. Continue to monitor the patient clinically, follow with the labs. 2. Discussed with the attending. 3. The patient is probably going to inpatient rehab at [facility] in [place]. Dr. Ag with rehab was consulted. This case was discussed with Dr. Esparza. Please refer to chart for more information. 4. Fever resolved. Blood culture negative so far. Dictated by Maurisio Gonzalez PA-C (Al) MD DAVON Bower/UDLCE /[id number]
--- NOTE | 2019-10-29 12:22 | Progress Note ---
DATE: 10/29/2019 Cardiology Progress Note SUBJECTIVE: Denies any chest pain or shortness of breath. OBJECTIVE: VITAL SIGNS: Temperature 98.4, heart rate 77, blood pressure 135/63, respiratory rate 16, and O2 saturation 100%. GENERAL: No acute distress, alert. NECK: No JVD. CHEST: Clear to auscultation. CARDIOVASCULAR: Regular rate and rhythm. Normal S1, S2. ABDOMEN: Soft. Bowel sounds positive. EXTREMITIES: No edema. Right BKA. CARDIOVASCULAR MEDICATIONS: Reviewed. Nifedipine 30 mg daily, hydralazine 25 mg every 4 hours, pravastatin 10 mg at bedtime, aspirin 81 mg daily, metoprolol succinate 100 mg b.i.d. LABORATORY STUDIES: Reviewed. Creatinine 0.8, hemoglobin 9.7, platelets 270. ASSESSMENT: A 79-year-old man with peripheral arterial disease, status post right below knee amputation, hypertension, diabetes, dyslipidemia. RECOMMENDATIONS: Continue current cardiovascular medications. Blood pressure 135/63 this morning. Pain adequately controlled. The patient working with PT/OT. MD HoV/MODL /[id number]
[2019-10-29] MEDS: HYDROCODONE/APAP 7.5MG-325MG 1 EA TAB PO PRN (13:44)
--- NOTE | 2019-10-29 15:29 | NUR ---
PATIENT EXERCISED WITH PHYSICAL THERAPY, ASSISTED OUT OF BED TO WHEEL CHAIR AND BACK TO BED. CALL LIGHT AT REACH.
--- NOTE | 2019-10-29 18:27 | NUR ---
RECEIVED CALL FROM LI Wu [facility] STATING DR. VIDAL DENIED THE PT FOR IN REHAB.
[2019-10-29] MEDS: PRAVASTATIN 20 MG TAB PO SCH (20:52)
[2019-10-29] MEDS: INSULIN GLARGINE 100 UNITS/ML VIAL SQ SCH (21:00)
[2019-10-30] VITALS (7 sets, daily range): BP systolic 124–146; BP diastolic 56–63
[2019-10-30 05:39] LABS: BASOPHILS % 0.3 % (0.0-1.0); EOSINOPHILS # (AUTO) 0.1 (0.0-0.4); EOSINOPHILS % 1.3 % (0.0-6.0); HEMATOCRIT 29.9 % (38.2-49.6); HEMOGLOBIN 9.7 g/dL (14.0-18.0); LYMPHOCYTES # (AUTO) 0.8 (1.0-3.2); LYMPHOCYTES % 9.3 % (18.0-39.1); MEAN CORPUSCULAR HEMOGLOBIN 27.3 pg (28-32); MEAN CORPUSCULAR HGB CONC 32.4 g/dL (31-35); MEAN CORPUSCULAR VOLUME 84.2 fL (81-99); MONOCYTES # (AUTO) 1.2 (0.2-0.8); MONOCYTES % 13.8 % (4.4-11.3); NEUTROPHILS # (AUTO) 6.7 (2.1-6.9); NEUTROPHILS % 74.7 % (38.7-80.0); PLATELET COUNT 260 x10e3/uL (140-360); RED BLOOD COUNT 3.55 x10e6/uL (4.3-5.7)
[2019-10-30 05:59] LABS: ANION GAP 9.3 mmol/L (8-16); BLOOD UREA NITROGEN 6 mg/dL (7-26); BUN/CREATININE RATIO 8 (6-25); CALCIUM 8.5 mg/dL (8.4-10.2); CARBON DIOXIDE 28 mmol/L (22-29); CHLORIDE 110 mmol/L (98-107); CREATININE, SERUM 0.77 mg/dL (0.72-1.25); EST GLOMERULAR FILTRATION RATE > 60 ML/MIN (60-); POTASSIUM 4.3 mmol/L (3.5-5.1); SODIUM 143 mmol/L (136-145)
--- NOTE | 2019-10-30 06:06 | NUR ---
Received call from lab that glucose was 57. pt stated he was starting to feel blood sugar drop. OJx2 with 2 packs of sugar given and milk with galileo crackers given. At 0626 BS 87. Pt states he felt much better. Will notify oncoming nurse and will cont to monitor.
[2019-10-30 06:09] LABS: GLUCOSE 57 mg/dL (74-118)
[2019-10-30] MEDS: NIFEDIPINE CR 30 MG TAB PO SCH (06:17)
[2019-10-30] MEDS: INSULIN LISPRO 100 UNIT/1 ML 3ML VIAL SQ SCH ×4 (07:30→20:54)
--- NOTE | 2019-10-30 07:30 | NUR ---
PATIENT IN BED RESTING WITH NO S/S OF DISCOMFORT. IMMOBILIZER IN PLACE TO RIGHT BKA. CALL LIGHT AT REACH.
[2019-10-30] MEDS: CHOLECALCIFEROL 1,000 UNIT TAB PO SCH (09:04)
[2019-10-30] MEDS: METOPROLOL SUCCINATE 50 MG TAB XL PO SCH ×2 (09:04→17:20)
[2019-10-30] MEDS: ASPIRIN 81 MG CHEW TAB PO SCH (09:04)
[2019-10-30] MEDS: SIROLIMUS 1 MG TABLET PO SCH (09:04)
[2019-10-30] MEDS: SODIUM BICARBONATE 650 MG TAB PO SCH ×2 (09:04→17:19)
[2019-10-30] MEDS: CALCIUM CARBONATE 500 MG CHEWABLE TABS PO SCH (09:04)
--- NOTE | 2019-10-30 11:00 | NUR ---
PATIENT IN ROOM EXERCISING WITH PHYSICAL THERAPY, NO DISTRESS NOTED. WILL CONTINUE TO MONITOR.
--- NOTE | 2019-10-30 11:16 | Progress Note ---
DATE: SUBJECTIVE: Mr. Sepulveda is a pleasant gentleman, 79-year-old, admitted with infected right foot with severe PVD, status post right BKA. Antibiotic stopped. Currently comfortable in bed, no acute distress. REVIEW OF SYSTEMS: No nausea. No vomiting. No fever. No chills. No chest pain or shortness of breath. No headache. No dysuria. ALLERGIES: NO KNOWN ALLERGIES. PHYSICAL EXAMINATION: VITAL SIGNS: Temperature 97.6, pulse 69, respirations 16, and blood pressure 133/61. GENERAL: Alert and oriented, no acute distress. CV: S1 and S2. CHEST: Equal expansion. Clear to auscultation. No acute distress. ABDOMEN: Soft and nontender. No distention. HEENT: Moist. No pallor. No JVD. EXTREMITIES: Right BKA. Local care with brace. The patient with a right upper extremity PICC line. MEDICATIONS: Medication list reviewed and as far as Infectious Disease point of view, the patient is on Bactrim prophylactically. The patient is status post renal transplant immunocompromise. LABORATORY STUDIES: White blood cells 9, hemoglobin 9.7, and platelet 260. No new BMP from today. MICROBIOLOGY: No new microbiology studies available. RADIOLOGY: No new radiology studies available. PATHOLOGY: No new pathology available. ASSESSMENT AND PLAN: A 79-year-old , complicated past medical history. 1. Infected right foot with poor healing and peripheral vascular disease, now status post below-knee amputation. IV antibiotics stopped. 2. Renal transplant. 3. Immunocompromise. 4. Debility. 5. Hypertension. Continue with Bactrim prophylactically every Tuesday, Tuesday, and Tuesday. Discussed with the nurse and spoke with the attending. The patient is a hard stick and unable to get line easily, therefore we keep the PICC line at this point and monitor. PICC line will be removed prior to discharge. Discharge planning is being planned possibly to SNF if the patient gets denied by insurance for inpatient rehab at [facility]. Continue with wound care. Continue with PT/OT. Continue to monitor the patient clinically and follow up with the labs. Discussed with Dr. Esparza in details. Please refer to chart for more information. Dictated by Maurisio Gonzalez PA-C (Al) MD DAVON Bower/SANTOL /[id number]
--- NOTE | 2019-10-30 11:38 | NUR ---
Received order for SNF eval. CM spoke with pt at bedside. Pt called his son Patrick Farah ([phone]) while CM was at bedside. Discussed SNF. Pt is agreeable to going. Pt's son asked CM to email him a list of in network facilities. CM emailed list to [email or web address] and provided CM's contact information. Pt's son will call CM back with choice.
--- NOTE | 2019-10-30 12:14 | NUR ---
Received call from Olivia Venegas with [facility], stated Dr. Ag mistakenly denied pt yesterday. Said Dr. Ag thinks pt would be a good candidate for inpatient rehab. States she was already started the referral, received yesterday. Hoping to have answer today. MATTHIEU updated pt and son Patrick (over the phone). Both agreeable to continue with inpatient rehab referral. Dr. Driver updated.
[2019-10-30] MEDS ORDERED: FUROSEMIDE INJ 10 MG/ML 4 ML VIAL IV ONE (12:55)
--- NOTE | 2019-10-30 13:47 | Progress Note ---
DATE: 10/30/2019 Cardiology Progress Note SUBJECTIVE: Coco had a little bit of shortness of breath earlier today. He denies any chest pain and has no other complaints. OBJECTIVE: VITAL SIGNS: Temperature 97.6, heart rate 68, blood pressure 133/61, respiratory rate 16, and O2 saturation 97%. GENERAL: No acute distress, alert. NECK: No JVD. CHEST: Clear to auscultation. CARDIOVASCULAR: Regular rate and rhythm. Normal S1, S2. No S3 or S4. ABDOMEN: Soft. Bowel sounds positive. EXTREMITIES: Right BKA left lower extremity with 2+ edema on exam today, warm extremities. CARDIOVASCULAR MEDICATIONS: Reviewed. Nifedipine 30 mg daily, hydralazine 10 mg every 2 hours as needed and 25 mg every 4 hours, pravastatin 10 mg at bedtime, aspirin 81 mg daily, metoprolol succinate 100 mg b.i.d. STUDIES: Reviewed. Creatinine 0.7, bicarbonate 28, potassium 4.3, glucose 57. White blood cells 9, hemoglobin 9.7, and platelets 260. INR 1.17. The patient is tolerating p.o. intake today. ASSESSMENT AND PLAN: A 79-year-old man with diabetes, hypertension, dyslipidemia, peripheral arterial disease, anemia, chronic kidney disease, status post orthotopic renal transplantation, on immunosuppressive therapy. RECOMMENDATIONS: 1. Lasix 40 mg IV x1 today for increasing edema. 2. The patient now with discontinued IV fluids. 3. Continue rest of cardiovascular medications. 4. We will coordinate with Nephrology and continue scheduled diuretic dosing. MD MIRELLA Bates/DULCE /[id number]
--- NOTE | 2019-10-30 15:21 | NUR ---
IV LASIX ADMINISTERED ORDERED, PATIENT VOIDING LARGE AMOUNT OF YELLOW URINE. OUT OF BED TO WHEEL CHAIR PER THERAPY. CALL LIGHT AT REACH.
--- NOTE | 2019-10-30 15:44 | NUR ---
Spoke to Olivia Venegas with [facility] for update on referral status. Still pending insurance auth.
[2019-10-30] MEDS: HYDROCODONE/APAP 7.5MG-325MG 1 EA TAB PO PRN (16:30)
--- NOTE | 2019-10-30 19:20 | NUR ---
Bedside report completed with morning nurse. Pt alert and oriented to name, lying in bed HOB 45 degrees. Denies pain at this time. Call light within reach. Bed low and locked.
[2019-10-30] MEDS: INSULIN GLARGINE 100 UNITS/ML VIAL SQ SCH (21:00)
[2019-10-30] MEDS: PRAVASTATIN 20 MG TAB PO SCH (21:00)
[2019-10-31] VITALS (7 sets, daily range): BP systolic 123–150; BP diastolic 54–62
[2019-10-31] MEDS: NIFEDIPINE CR 30 MG TAB PO SCH (06:15)
--- NOTE | 2019-10-31 07:00 | NUR ---
BEDSIDE SHIFT REPORT FROM COTTON WEIGHER OPERATOR RN. PT DENIES NEEDS AT THIS TIME.
[2019-10-31] MEDS: TRIMETHOPRIM/SULFAMETHOXAZOLE 160-800 MG TAB PO SCH (08:20)
[2019-10-31] MEDS: ASPIRIN 81 MG CHEW TAB PO SCH (08:20)
[2019-10-31] MEDS: SIROLIMUS 1 MG TABLET PO SCH (08:21)
[2019-10-31] MEDS: SODIUM BICARBONATE 650 MG TAB PO SCH (08:21)
[2019-10-31] MEDS: METOPROLOL SUCCINATE 50 MG TAB XL PO SCH ×2 (08:21→16:36)
[2019-10-31] MEDS: CHOLECALCIFEROL 1,000 UNIT TAB PO SCH (08:21)
[2019-10-31] MEDS: CALCIUM CARBONATE 500 MG CHEWABLE TABS PO SCH (08:21)
[2019-10-31] MEDS: INSULIN LISPRO 100 UNIT/1 ML 3ML VIAL SQ SCH ×4 (08:22→21:00)
--- NOTE | 2019-10-31 11:20 | Progress Note ---
DATE: SUBJECTIVE: Mr. Sepulveda is a pleasant 79-year-old gentleman with infected right foot, failed treatment status post BKA, now pending transfer to LTAC versus SNF. REVIEW OF SYSTEMS: No nausea, no vomiting, no fever, no chills. No chest pain. No shortness of breath. No headache. No dysuria. No polyuria. Right BKA not as tender. PHYSICAL EXAMINATION: VITAL SIGNS: Temperature 98.2, pulse 78, respirations 20, and blood pressure 150/62. GENERAL: Alert and oriented, very pleasant, no acute distress. CV: S1 and S2. CHEST: Equal expansion. Clear to auscultation. No acute distress. HEENT: Moist. No pallor. No JVD. EXTREMITIES: Right BKA seen remains with galina. No erythema, no tenderness, no tightness, no drainage. Continue with local care. MEDICATIONS: Medication list reviewed. As far as Infectious Disease point of view, the patient is on Bactrim prophylactically for renal transplant/immunocompromised. MICROBIOLOGY: No recent microbiology studies are available. Previous blood cultures negative. RADIOLOGY STUDIES: No new radiology studies available. ASSESSMENT AND PLAN: A pleasant 79-year-old gentleman, failed right foot treatment, now status post below-knee amputation. The surgical site with an acute finding. Pain seems to be controlled well. Other medical conditions includin. Hypertension. 2. Diabetes. 3. Debility. 4. Renal transplant. 5. Immunocompromise. 6. Hyperlipidemia. Continue with Bactrim prophylactically. 7. Await SNF versus rehab. Discussed with Dr. Esparza in details. Please refer to chart for more information. Dictated by Maurisio Gonzalez PA-C (Al) Andres Esparza MD /MODL /[id number]
--- NOTE | 2019-10-31 11:24 | NUR ---
Per Olivia with [facility], they have not received auth yet.
[2019-10-31] MEDS ORDERED: FUROSEMIDE INJ 10 MG/ML 4 ML VIAL IV SCH (11:30)
[2019-10-31] MEDS: HYDROCODONE/APAP 7.5MG-325MG 1 EA TAB PO PRN ×2 (11:37→22:16)
--- NOTE | 2019-10-31 13:24 | Progress Note ---
DATE: 10/31/2019 Cardiology Progress note. SUBJECTIVE: Denies any chest pain or shortness of breath. Some residual leg edema, somewhat improved after one dose of Lasix yesterday. OBJECTIVE: VITAL SIGNS: Temperature 98.2, heart rate 78, blood pressure 150/62, respiratory rate 20, O2 saturation 94%. GENERAL: No acute distress. Alert. NECK: No JVD. CHEST: Clear to auscultation. CARDIOVASCULAR: Regular rate and rhythm. Normal S1, S2. ABDOMEN: Soft. Bowel sounds positive. EXTREMITIES: Right BKA covered with dressings. Left leg with 1+ edema. CARDIOVASCULAR MEDICATIONS: Reviewed: 1. Nifedipine 30 mg daily. 2. Metoprolol succinate 100 mg b.i.d. 3. Aspirin 81 mg daily. 4. Pravastatin 10 mg at bedtime. 5. Hydralazine 25 mg every 4 hours. LABORATORY DATA: Reviewed: Sodium 143, potassium 4.3, chloride 110, bicarbonate 28, BUN 6, creatinine 0.77, glucose 57. White blood cells 9, hemoglobin 9.7, platelets 260. PT 15.7, PTT 33.1, INR 1.17. AST 27, ALT 14, alkaline phosphatase 132, total bilirubin 0.6. ASSESSMENT AND PLAN: A 79-year-old man with: 1. Acute kidney injury, now resolved. 2. Peripheral arterial disease, status post right BKA. 3. Hypertension. 4. Diabetes. 5. Dyslipidemia. 6. Chronic kidney disease with immunosuppressive therapy for renal transplantation. RECOMMENDATIONS: Additional 40 mg of Lasix IV x1 today. We will coordinate with Nephrology, scheduled further dosing of diuretics and continue rest of cardiovascular medications. Jaswinder Bell MD AFRachelle/MODL /[id number]
--- NOTE | 2019-10-31 13:59 | NUR ---
Placed call to Olivia with [facility] for update. No response. Left message for callback. Also placed call to Taylor email administrator with [facility]. No response. Left message for callback.
--- NOTE | 2019-10-31 15:22 | NUR ---
Received call back from Taylor. State they have submitted everything, but are still waiting on insurance auth. Also heard back from Olivia. States insurance just requested information from intake. Should have answer soon.
--- NOTE | 2019-10-31 19:30 | NUR ---
RECEIVED REPORT FROM DAY NURSE KENDAL. PATIENT IS RESTING COMFORTABLY IN THE BED. BED IS IN THE LOWEST POSITION AND CALL LIGHT IS WITHIN REACH. WILL CONTINUE TO MONITOR PATIENT FOR PAIN, S/P RIGHT BKA, KNEE IMMOBILIZER IN PLACE STUMP ELEVATED, CALL LIGHT WITHIN REACH
[2019-10-31] MEDS: PRAVASTATIN 20 MG TAB PO SCH (22:15)
[2019-10-31] MEDS: INSULIN GLARGINE 100 UNITS/ML VIAL SQ SCH (22:19)
[2019-11-01] VITALS (12 sets, daily range): BP systolic 133–153; BP diastolic 56–66
[2019-11-01] MEDS: HYDROCODONE/APAP 7.5MG-325MG 1 EA TAB PO PRN ×3 (03:10→22:16)
[2019-11-01] MEDS: NIFEDIPINE CR 30 MG TAB PO SCH (05:19)
--- NOTE | 2019-11-01 07:00 | NUR ---
BSSR GIVEN TO KENDAL CARRILLO, Patient received lying in bed. AAO x 3. PARAGUAYAN SPEAK, SPEAK LITTLE MACEDONIAN, S/P RIGHT BKA IMMOBILIZER IN PLACE, STUMP ELEVATED ON PILLOWS, Patient DENIES PAIN AT THIS TIME, Respirations even and non-labored. Fall precautions implemented. Patient instructed to call for assistance when needed. Call light within reach.
--- NOTE | 2019-11-01 07:00 | NUR ---
BEDSIDE SHIFT REPORT FROM FACE HARDENER RN. PT DENIES NEEDS AT THIS TIME.
[2019-11-01] MEDS: INSULIN LISPRO 100 UNIT/1 ML 3ML VIAL SQ SCH ×4 (07:30→22:22)
[2019-11-01] MEDS: SIROLIMUS 1 MG TABLET PO SCH (08:55)
[2019-11-01] MEDS: FUROSEMIDE 20 MG TAB PO SCH (08:55)
[2019-11-01] MEDS: ASPIRIN 81 MG CHEW TAB PO SCH (08:55)
[2019-11-01] MEDS: CALCIUM CARBONATE 500 MG CHEWABLE TABS PO SCH (08:56)
[2019-11-01] MEDS: METOPROLOL SUCCINATE 50 MG TAB XL PO SCH ×2 (08:56→16:27)
[2019-11-01] MEDS: CHOLECALCIFEROL 1,000 UNIT TAB PO SCH (08:56)
--- NOTE | 2019-11-01 10:44 | NUR ---
Nutrition Intervention Note RD Recommendation(s) for Physician: -Continue ADA diet Plan of Care: RD following, monitoring for tolerance and adequacy Nutrition reason for involvement: Follow up RD Assessment: (10/31) Visited pt in the room for follow up. Pt reported good appetite with 100% recorded meal intake. Pt denied any GI issues. LBM - 10/30. No other nutritional concern at this time. Will continue to monitor and follow. (10/24) Following up on this pt. Pt was off unit for R BKA. Prior to surgery, pt was eating 50-75% of meals. Per RN, pt has no GI related issue noted. +BM. No chemistry labs since 10/22. Pt will benefit from oral nutrition supplement and MVI s/p R BKA. Will continue to monitor and follow. (10/18/19) Chart reviewed. Labs and meds reviewed. Pt is a 79 year old male admitted with gangrene of the toe of right foot. Attempted to call patient, but he did not answer. Therefore, spoke to RN who reported pt is eating >50% of meals. No weight loss is evident per weight history. Will continue to monitor. Primary Diagnose(s): gangrene of the toe of right foot PMH: PVD, type 2 diabetes, kidney transplant, CKD, PVD, multiple toe amputations of the right foot, and prostate surgery I/O: +1250mL/ -950mL GI: abdomen soft, round, non-tender, LBM 10/30 Skin: R stump Labs: (10/31) no chemistry lab today Meds: vitamin D3, tums, lasix Ht: 65in Wt: 175.5lb BMI: 29.2kg/m2 IBW: 128lb (adjusted IBW for R BKA) Malnutrition Evaluation (11/01/19) The patient does not meet criteria for a specified degree of malnutrition at this time. Will re-evaluate at follow-up as appropriate. Nutrition Prescription (Diet Order): ADA 1400 Estimated Nutritional Needs: Calories: 1450 1740kcal (25-30kcal/kg/d) Weight used : adjusted IBW Protein : 58 87g (1-1.5g/kg/d) Weight used: adjusted IBW Diet Adequacy: Meeting calorie and protein needs Tolerance: Tolerating PO Diet Education Needs Assessment: Diet education not indicated. Nutrition Care Level: low Nutrition Diagnosis: N/A Goal: Patient will meet 75-100% of estimated needs by follow up Progress: Goal met Interventions: Carbohydrate-modified diet Monitoring/Evaluation: Total energy intake, Total protein intake, Modified diet, Weight change Signed: Fern Hahn MS, RD, LD
--- NOTE | 2019-11-01 12:40 | Progress Note ---
DATE: SUBJECTIVE: The patient was seen and evaluated and discussed with Dr. Esparza in details. REVIEW OF SYSTEMS: No nausea, no vomiting, no fever, no chills. No chest pain. No shortness of breath. The patient complains of some swelling of his arms. Otherwise, no complaints. PHYSICAL EXAMINATION: VITAL SIGNS: Temperature 97.9, pulse 65, respirations 16, blood pressure 148/56. GENERAL: Alert and oriented, no acute distress. HEENT: Moist. No pallor. No JVD. CV: S1, S2. CHEST: Equal expansion. Clear to auscultation. No acute distress. ABDOMEN: Soft and nontender. No distention. EXTREMITIES: Right BKA, dressed local care. Some edema of bilateral upper extremities with right leg with more than left. IV fluid is on hold. MEDICATIONS: Medication is reviewed. The patient is on Bactrim prophylactically post renal transplant/immunocompromised. LABORATORY STUDIES: White blood cells of 9, hemoglobin 9.7, platelet 260. No new BMP. Fingerstick glucose was 104 this morning. MICROBIOLOGY: No new microbiology studies available. However, blood cultures times 4 negative in past. RADIOLOGY: No new radiology studies available. ASSESSMENT AND PLAN: A pleasant 79-year-old gentleman, infected right foot, failed treatment with peripheral vascular disease/peripheral arterial disease, severe; status post below knee amputation. Continue with local care. Stop the antibiotics since the infection site has been eliminated. Needs aggressive PT/OT. 1. Diabetes. 2. Hypertension. 3. Debility. 4. Renal transplant/immunocompromised. 5. Hyperlipidemia. Attending's note reviewed, pending approval and transferred to acute rehab. Hopefully, [facility] in [place]. Continue to monitor patient off IV antibiotics and continue with prophylactic Bactrim. Further management of this patient is based on daily finding on laboratory and physical examination. We will continue to monitor the right BKA. Thank you for this dictation. Dictated by Maurisio Gonzalez PA-C (Al) Andres Esparza MD /MODL /[id number]
--- NOTE | 2019-11-01 15:48 | NUR ---
Per Olivia with [facility], pt was denied. P2P will be set up for Dr. Ag as soon as possible.
--- NOTE | 2019-11-01 18:45 | Progress Note ---
DATE: 11/01/2019 Cardiology Progress Note SUBJECTIVE: No complaints. OBJECTIVE: VITAL SIGNS: Temperature 97.9, heart rate 65, blood pressure 148/56, respiratory rate 16, and O2 saturation 100%. GENERAL: No acute distress. Alert. NECK: No JVD. CHEST: Clear to auscultation. CARDIOVASCULAR: Regular rate and rhythm. Normal S1 and S2. No S3 or S4. ABDOMEN: Soft. Bowel sounds positive. EXTREMITIES: 1+ edema left lower extremity. Right lower extremity below-knee amputation stump covered with dressings. CARDIOVASCULAR MEDICATIONS: Reviewed. Nifedipine 30 mg daily, hydralazine 10 mg q.2 hours p.r.n. and 25 mg every 4 hours, pravastatin 10 mg at bedtime, aspirin 81 mg daily, metoprolol succinate 100 mg b.i.d., and furosemide 20 mg daily. ASSESSMENT AND PLAN: 1. A 79-year-old man with peripheral arterial disease, status post right below-knee amputation, chronic kidney disease, status post acute kidney injury. 2. Anemia. 3. Hypertension. 4. Diabetes and dyslipidemia. RECOMMEND: Continue current cardiovascular medications. Jaswinder Bell MD AFV/MODL /[id number]
[2019-11-01] MEDS: PRAVASTATIN 20 MG TAB PO SCH (22:11)
[2019-11-01] MEDS: INSULIN GLARGINE 100 UNITS/ML VIAL SQ SCH (22:22)
[2019-11-02] VITALS (9 sets, daily range): BP systolic 126–155; BP diastolic 56–82
[2019-11-02] MEDS: HYDROCODONE/APAP 7.5MG-325MG 1 EA TAB PO PRN ×4 (03:10→23:51)
[2019-11-02] MEDS: NIFEDIPINE CR 30 MG TAB PO SCH (06:41)
[2019-11-02] MEDS: MAGNESIUM HYDROXIDE 30 ML UDC PO PRN (06:42)
[2019-11-02 07:02] LABS: ALANINE AMINOTRANSFERASE 15 IU/L (0-55); ALBUMIN 2.2 g/dL (3.5-5.0); ALBUMIN/GLOBULIN RATIO 0.6 (0.8-2.0); ALKALINE PHOSPHATASE 116 IU/L (40-150); ANION GAP 8.6 mmol/L (8-16); BLOOD UREA NITROGEN 9 mg/dL (7-26); BUN/CREATININE RATIO 10 (6-25); CALCIUM 8.6 mg/dL (8.4-10.2); CARBON DIOXIDE 30 mmol/L (22-29); CHLORIDE 104 mmol/L (98-107); CREATININE, SERUM 0.88 mg/dL (0.72-1.25); EST GLOMERULAR FILTRATION RATE > 60 ML/MIN (60-); GLUCOSE 145 mg/dL (74-118); POTASSIUM 4.6 mmol/L (3.5-5.1); SODIUM 138 mmol/L (136-145)
[2019-11-02] MEDS: SIROLIMUS 1 MG TABLET PO SCH (09:00)
[2019-11-02] MEDS: ASPIRIN 81 MG CHEW TAB PO SCH (09:50)
[2019-11-02] MEDS: TRIMETHOPRIM/SULFAMETHOXAZOLE 160-800 MG TAB PO SCH (09:51)
[2019-11-02] MEDS: FUROSEMIDE 20 MG TAB PO SCH (09:51)
[2019-11-02] MEDS: CALCIUM CARBONATE 500 MG CHEWABLE TABS PO SCH (09:52)
[2019-11-02] MEDS: CHOLECALCIFEROL 1,000 UNIT TAB PO SCH (09:52)
[2019-11-02] MEDS: METOPROLOL SUCCINATE 50 MG TAB XL PO SCH ×2 (09:52→18:17)
[2019-11-02] MEDS: INSULIN LISPRO 100 UNIT/1 ML 3ML VIAL SQ SCH ×5 (09:57→21:32)
--- NOTE | 2019-11-02 12:23 | Progress Note ---
DATE: Cardiology Progress Note SUBJECTIVE: Denies any chest pain or shortness of breath. OBJECTIVE: VITAL SIGNS: Temperature 98.1, heart rate 65, blood pressure 150/68, respiratory rate 18, O2 saturation 99%. GENERAL: In no acute distress. Alert. NECK: No JVD. CHEST: Clear to auscultation. CARDIOVASCULAR: Regular rate and rhythm. Normal S1 and S2. No S3 or S4. ABDOMEN: Soft. Bowel sounds positive. EXTREMITIES: Right BKA, left pedal edema. CARDIOVASCULAR MEDICATIONS: Reviewed. Nifedipine, hydralazine, aspirin, metoprolol, pravastatin, and furosemide. LABORATORY DATA: Reviewed. Remarkable for creatinine 0.8, hemoglobin 9.7, bicarbonate of 30. ASSESSMENT AND PLAN: A 79-year-old man with coronary artery disease, status post right [id number] amputation, diabetes, hypertension, dyslipidemia, chronic kidney disease, status post orthotopic renal transplantation, status post acute kidney injury and anemia. Recommend continue current cardiovascular medication. MD MIRELLA Bates/MODL /[id number] MTDD
--- NOTE | 2019-11-02 16:21 | NUR ---
P2P was completed and denial was overturned. MOT for inpatient rehab - [facility] [address] [place] [address] Call report to [phone] Rm [id number] Attending: Dr. Curt Ag Admin: Chuck Burden Please have ambulance go thru ER entrance. MOT completed and placed with pt's packet at nurses station. GERARDO Paredes was notified of MOT. Addendum: 11/02/19 at 1626 by Carie Ritchie CM Pt to be admitted 7pm or after. Addendum: 11/02/19 at 1653 by Carie Ritchie CM Spoke to pt and pt's son Patrick and informed of insurance approval for inpatient rehab at [facility]. Gave pt's son hospital's address and phone number.
--- NOTE | 2019-11-02 18:26 | NUR ---
182 REPORT CALLED TO REFUGIO CARRILLO AT [facility], REPORTED VS AND PT STATUS
--- NOTE | 2019-11-02 19:00 | NUR ---
BEDSIDE REPORT AND CARE TO CARLOS CARRILLO
[2019-11-02] MEDS: PRAVASTATIN 20 MG TAB PO SCH (21:29)
[2019-11-02] MEDS: INSULIN GLARGINE 100 UNITS/ML VIAL SQ SCH (21:33)
[2019-11-03] VITALS: BP 139/53
--- NOTE | 2019-11-03 01:00 | NUR ---
AMBULANCE ARRIVED TO FLOOR FOR TRANSPORT TO [facility] FOR REHAB S/P RIGHT BKA, RIGHT PICC LINE PATENT REMAIN UPON DISCHARGE FOR CONTINUAL IV ABT THERAPY, FAMILY MEDICINE CHAIR GIVEN REPORT, ALL PERSONAL BELONGINGS GIVEN TO DRIVE, PATIENT GIVEN PRN PAIN MEDICATION PRIOR TO DISCHARGE FOR INCREASE COMFORT LEVEL, [facility] CONTACTED VIA TELEPHONE MADE AWARE PATIENT ETA
== END 2019-11-03 01:00 | DRG 239 ==
LOC: ER 11:24 → ERHOLD 11:48 → ER 13:25 → MED/SURG2 13:28
PROVIDERS: ADMIT Internal Medicine; ATTEND Internal Medicine
PROC: 02HV33Z Insertion of Infusion Device into Superior Vena Cava, Percutaneous Approach (ICD-10-PCS; 2019-10-22)
PROC: B41D1ZZ Fluoroscopy of Aorta and Bilateral Lower Extremity Arteries using Low Osmolar Contrast (ICD-10-PCS; 2019-10-22)
PROC: 0Y6H0Z2 Detachment at Right Lower Leg, Mid, Open Approach (ICD-10-PCS; principal; 2019-10-25 11:30)
DX: E11.52 Type 2 diabetes mellitus with diabetic peripheral angiopathy with gangrene (principal); N17.0 Acute kidney failure with tubular necrosis; T86.12 Kidney transplant failure; L03.115 Cellulitis of right lower limb; I73.9 Peripheral vascular disease, unspecified; E78.5 Hyperlipidemia, unspecified; D64.9 Anemia, unspecified; E11.22 Type 2 diabetes mellitus with diabetic chronic kidney disease; E11.42 Type 2 diabetes mellitus with diabetic polyneuropathy; Z79.4 Long term (current) use of insulin; Z79.899 Other long term (current) drug therapy; E11.65 Type 2 diabetes mellitus with hyperglycemia; I12.9 Hypertensive chronic kidney disease with stage 1 through stage 4 chronic kidney disease, or unspecified chronic kidney disease; N18.3 Chronic kidney disease, stage 3 (moderate); I25.10 Atherosclerotic heart disease of native coronary artery without angina pectoris; G89.29 Other chronic pain; K59.00 Constipation, unspecified; M21.6X9 Other acquired deformities of unspecified foot; N40.0 Benign prostatic hyperplasia without lower urinary tract symptoms
CPT/HCPCS: 36247; 36415; 36569; 75625; 75710; 76770; 80048; 80053; 80158; 80195; 81001; 82550; 82553; 82948; 83036; 84100; 84443; 84484; 85007; 85025; 85027; 85610; 85730; 87040; 88307; 88311; 93005; 93925; 97139; 99152; 99153; 99284; C1769; J0360; J0692; J1170; J1644; J1650; J1815; J1940; J2001; J2020; J2250; J2270; J2405; J2543; J3010; J7030; J7050; J7512; J7515; Q0162; Q9967

== ENCOUNTER 2019-12-28 12:50 | Inpatient (IN) | payer MEDICARE, OTHER ==
[~2019-12-28] VITALS: Ht 165.1 cm; Wt 71.0 kg
--- NOTE | 2019-12-28 13:21 | Emergency Department Note ---
History of Present Illnes History of Present Illness Chief Complaint: Genitourinary History of Present Illness This is a 79 year old male arrives to the ED with complaints of fever and possible recurrent UTI. Chief Complaint Comment PATIENT IN FROM HOME WITH COMPLAINTS OF FEVER AND URINARY TRACT INFECTION; STATES THAT HE HAD A RIGHT BELOW KNEE AMPUTATION 10/2019. SINCE THEN HE WENT TO REHAB AND WAS BEING TREATED FOR A UTI - IN NOW FOR EVALUATION FOR ANOTHER UTI - FEVER AT HOME AND INCREASED URINATION. PATIENT APPEARS IN NO DISTRESS, RESP EVEN AND NONLABORED, DENIES PAIN AT THIS TIME Historian: Patient Arrival Mode: Car Onset (how long ago): month(s) Severity: mild Duration (how long): day(s) Timing of current episode: constant Progression: worsening Past Medical/Family History Physician Review I have reviewed the patient's past medical and family history. Any updates have been documented here. Past Medical History Recent Fever: No Clinical Suspicion of Infectio: No New/Unexplained Change in Ment: No Past Medical History: Hypertension, Diabetes, Hyperlipedemia Other Medical History: high cholestrerol, Left FA Fistula, Necrotic 2nd toe right foot. Past Surgical History: Cataract Removal Other Surgery: Amputation of all left foot toes. Amputation of the 3rd toe to the right foot. RIGHT LEG AMPUTATION Social History Smoking Cessation: Never Smoker Family History Family history of heart diseas: No Other Last Tetanus: unk Review of Systems Review of Systems Constitutional: Reports fever, Reports malaise EENTM: Reports no symptoms Cardiovascular: Reports no symptoms Respiratory: Reports no symptoms Gastrointestinal: Reports no symptoms Genitourinary: Reports no symptoms, Reports frequency Musculoskeletal: Reports no symptoms Integumentary: Reports no symptoms Neurological: Reports no symptoms Psychological: Reports no symptoms Endocrine: Reports no symptoms Hematological/Lymphatic: Reports no symptoms Physical Exam Related Data Allergies: Coded Allergies: No Known Allergies (Verified , 11/24/15) Triage Vital Signs Vital Signs Date Time Temp Pulse Resp B/P (MAP) Pulse Ox O2 Delivery O2 Flow Rate FiO2 12/28/19 13:04 97.7 70 16 116/53 96 Vital signs reviewed: Yes Physical Exam CONSTITUTIONAL Constitutional: Present well-developed, Present well-nourished HENT HENT: Present normocephalic, Present atraumatic, Present oropharynx clear/moist, Present nose normal HENT L/R: Present left ext ear normal, Present right ext ear normal EYES Eyes: Reports PERRL, Reports conjunctivae normal NECK Neck: Present ROM normal PULMONARY Pulmonary: Present effort normal, Present breath sounds normal CARDIOVASCULAR Cardiovascular: Present regular rhythm, Present heart sounds normal, Present capillary refill normal, Present normal rate GASTROINTESTINAL Abdominal: Present soft, Present nontender, Present bowel sounds normal GENITOURINARY Genitourinary: Present exam deferred SKIN Skin: Present warm, Present dry MUSCULOSKELETAL Musculoskeletal: Present ROM normal NEUROLOGICAL Neurological: Present alert, Present oriented x 3, Present no gross motor or sensory deficits PSYCHOLOGICAL Psychological: Present mood/affect normal, Present judgement normal Results Laboratory Lab results reviewed: Yes Imaging Imaging results reviewed: Yes Assessment & Plan Medical Decision Making MDM 79-year-old male arrives to the ED with continued UTI, patient required hospital admission for failed outpatient antibiotics. Patient took Levaquin prior to arrival. While patient has a source of infection leukocytosis, no other evidence of organ dysfunction present at time of admission. Patient otherwise hemodynamically stable, no evidence of fever, tachycardia, tachypnea during entire ED stay prior to floor transfer. Further antibiotics to be given per primary medicine team based on outpatient urine culture. Urology consulted by primary team. Assessment & Plan Final Impression: (1) UTI (urinary tract infection) Depart Disposition: ADMITTED Last Vital Signs Date Time Temp Pulse Resp B/P (MAP) Pulse Ox O2 Delivery O2 Flow Rate FiO2 12/28/19 13:04 97.7 70 16 116/53 96 Home Meds Reported Medications Peshtigo-3 Fatty Acids (OMEGA-3) 1,000 Mg Capsule, 300 MG PO DAILY 10/17/19 Sulfamethoxazole/Trimethoprim (SULFAMETHOXAZOLE-TMP DS TABLET) 1 Each Tablet, 1 TAB PO DAILY 10/19/18 Insulin Detemir (LEVEMIR) 100 Unit/1 Ml Vial, SC HS 10/19/18 Calcium Carbonate (TUMS) 200 Mg Tab.chew, PO DAILY 10/19/18 Cholecalciferol (Vitamin D3) (VITAMIN D3) 1,000 Unit Tablet, 2 CAP PO DAILY 01/26/16 Metoprolol Succinate (METOPROLOL SUCCINATE) 50 Mg Tab.er.24h, 100 MG PO BID, MG 01/26/16 Insulin Aspart (NOVOLOG) 100 Unit/1 Ml Cartridge, SC TIDWM 11/24/15 Alendronate Sodium (ALENDRONATE SODIUM) 70 Mg Tablet, 70 MG PO UD once a week on wednesdays11/24/15 Torsemide (TORSEMIDE) 10 Mg Tablet, 10 MG PO BID 11/24/15 Sirolimus (RAPAMUNE) 1 Mg Tablet, 1 MG PO DAILY 11/24/15 Prednisone (PREDNISONE) 5 Mg Tablet, 5 MG PO DAILY 11/24/15 Losartan Potassium (LOSARTAN POTASSIUM) 25 Mg Tablet, 25 MG PO DAILY 11/24/15 Pravastatin Sodium (PRAVASTATIN SODIUM) 10 Mg Tablet, 10 MG PO HS 11/24/15 Nifedipine (NIFEDIPINE) 20 Mg Capsule, 90 MG PO DAILY 11/24/15 Cyclosporine (CYCLOSPORINE) 25 Mg Capsule, 25 MG PO BID, #30 CAP 11/24/15 LUZ ARANA DO Dec 28, 2019 13:21
[2019-12-28 14:16] LABS: BASOPHILS % 0.3 % (0.0-1.0); HEMATOCRIT 30.6 % (38.2-49.6); HEMOGLOBIN 9.5 g/dL (14.0-18.0); LYMPHOCYTES # (AUTO) 0.6 (1.0-3.2); LYMPHOCYTES % 3.6 % (18.0-39.1); MEAN CORPUSCULAR VOLUME 83.6 fL (81-99); MONOCYTES # (AUTO) 1.5 (0.2-0.8); MONOCYTES % 9.5 % (4.4-11.3); NEUTROPHILS # (AUTO) 13.7 (2.1-6.9); NEUTROPHILS % 85.8 % (38.7-80.0); PLATELET COUNT 185 x10e3/uL (140-360); RED BLOOD COUNT 3.66 x10e6/uL (4.3-5.7); RED CELL DISTRIBUTION WIDTH 17.5 % (11.7-14.4)
[2019-12-28 14:36] LABS: ALBUMIN 2.5 g/dL (3.5-5.0); ALBUMIN/GLOBULIN RATIO 0.6 (0.8-2.0); ANION GAP 13.2 mmol/L (8-16); CALCIUM 8.5 mg/dL (8.4-10.2); CREATININE, SERUM 1.28 mg/dL (0.72-1.25); POTASSIUM 4.2 mmol/L (3.5-5.1)
[2019-12-28 15:02] LABS: BILIRUBIN,URINE NEGATIVE (NEGATIVE); CLARITY,URINE HAZY (CLEAR); COLOR,URINE YELLOW (YELLOW); KETONES,URINE NEGATIVE (NEGATIVE); LEUKOCYTE ESTERASE ,URINE MODERATE (NEGATIVE); NITRITE,URINE NEGATIVE (NEGATIVE); PROTEIN,URINE DIPSTICK 2+ (NEGATIVE); URINE UROBILINOGEN 0.2 mg/dL (0.2 - 1)
[2019-12-28 15:17] LABS: BACTERIA,URINE MODERATE /HPF; WBC,URINE (MAN) >50 /HPF (0-5)
[2019-12-28] MEDS ORDERED: HYDROCODONE/APAP 5MG-325MG TAB PO PRN (18:15)
[2019-12-28] MEDS ORDERED: DEXTROSE 50% SYRINGE 50 ML IV PRN (18:15)
[2019-12-28] MEDS ORDERED: HYDRALAZINE HCL 25 MG TAB PO PRN (18:15)
[2019-12-28] MEDS ORDERED: MEROPENEM 1GM 100 ML IV SCH (18:30)
--- NOTE | 2019-12-28 18:30 | NUR ---
PT RECEIVED FROM ER VIA STRETCHER. CALL SETH IN PLACE SIDE RAILS UP TIMES 2, REPORT WILL BE GIVEN TO ON COMING SHIFT.
--- NOTE | 2019-12-28 19:15 | NUR ---
Patient visited in room during nursing rounds. Patient alert and oriented x3 but vietnamese speaking only. Patient appear weak and stated he feels warms. V/S to be checked. Patient given cold wash rags and applied on patient's forehead. Patient has right BKA and no toes on left foot. Call cordero within reach. Will monitor closely.
[2019-12-28 19:30] VITALS: BP 106/49
--- NOTE | 2019-12-28 19:30 | NUR ---
Spoke with patient's son (Patrick Sepulveda) via phone and explained plan of care. Also obtained medical information about patient since patient speaks amharic only and son speaks panamanian. Reminded son to inform (Alondra Sepulveda) to bring home meds (Sirolimus and Hitchcock 3 tabs).
[2019-12-28 20:00] VITALS: BP 110/66
[2019-12-28] MEDS ORDERED: ONDANSETRON HCL INJ 2MG/ML 2ML 2 MG/ML VIAL IV PRN (20:00)
--- NOTE | 2019-12-28 20:00 | NUR ---
Called Dr. Driver to inform patient c/o nausea and has vomited already. aware and ordered Zofran 4mg IV Q4hr prn.
[2019-12-28] MEDS ORDERED: SODIUM CHLORIDE 0.9% 250ML 250 ML ONE (20:10)
[2019-12-28] MEDS: PRAVASTATIN 20 MG TAB PO SCH (20:15)
[2019-12-28 21:00] VITALS: BP 110/66
[2019-12-28] MEDS: INSULIN GLARGINE 100 UNITS/ML VIAL SQ SCH (21:19)
[2019-12-28] MEDS: INSULIN LISPRO 100 UNIT/1 ML 3ML VIAL SQ SCH (21:19)
--- NOTE | 2019-12-28 22:34 | NUR ---
Call attempt and left voice message for Dr. Driver regarding patient's temp of 101.2 F and need for medication prn. Awaiting on MD call back.
--- NOTE | 2019-12-28 22:45 | NUR ---
Received orders from Dr. Driver for STAT labs (lactic acid and blood culture), CT abd/pelvis, CT chest, AM labs (CBC, BMP, Hgb AIC, Lactic acid), and consult for Dr. Esparza (re: sepsis). Nurse to call Dr. Esparza in AM before end of shift.
[2019-12-28] MEDS: SODIUM CHLORIDE 0.9% 1000ML 1,000 ML IV SCH (23:14)
[2019-12-28] MEDS: ACETAMINOPHEN 1000 MG/100 ML IV PRN (23:15)
[2019-12-29] VITALS (8 sets, daily range): BP systolic 107–140; BP diastolic 45–62
--- NOTE | 2019-12-29 00:30 | NUR ---
Pt was escorted downstairs by Radiology techs via hospital bed for a CT of chest and CT of abdomen and pelvis. Pt left unit in stable condition.
--- NOTE | 2019-12-29 01:04 | NUR ---
Called Dr. Driver to report lactic acid of 3.2. Dr Driver upset of being called about the lactic acid result that he ordered as STAT. Will pass this information to incoming dayshift nurse.
--- NOTE | 2019-12-29 01:48 | Diagnostic Imaging Report ---
EXAM: CT Chest, Abdomen and Pelvis WITHOUT contrast INDICATION: Fever, urinary tract infection COMPARISON: Chest CT 09/02/2018. TECHNIQUE: Chest, abdomen and pelvis were scanned utilizing a multidetector helical scanner from the lung apex to the pubic symphysis without administration of IV contrast. Absence of intravenous contrast decreases sensitivity for detection of focal lesions and vascular pathology. Coronal and sagittal reformations were obtained. Routine protocol was performed. IV CONTRAST: None ORAL CONTRAST: None COMPLICATIONS: None RADIATION DOSE: Total DLP: 679 mGy*cm Estimated effective dose: (DLP x 0.015 x size factor) mSv CTDIvol has been reviewed. It is below the limits set by the Radiation Protocol Committee (RPC). Dose modulation, iterative reconstruction, and/or weight based adjustment of the mA/kV was utilized to reduce the radiation dose to as low as reasonably achievable. FINDINGS: Lines/tubes: None. Lungs/airways: Bibasilar atelectasis. Patent airways. Pleura:Small/moderate left and small right pleural effusions. Cardiomediastinum: Calcifications of the aorta and major branches including the coronary arteries. Normal thyroid. Normal heart size. Aortic valve calcifications. Small/moderate pericardial effusion. Mild circumferential wall thickening of the mid to distal esophagus. Calcified mediastinal lymph nodes. Liver: Normal. Gallbladder: Normal. Spleen: Normal. Pancreas: Normal. Kidneys: Atrophic. 4.7 cm simple right renal cyst. Transplant kidney in the right pelvis with perinephric fat stranding. Adrenals: Normal. Gastrointestinal: Moderate volume of stool in the colon and rectum. Colonic diverticuli. Normal appendix. Pelvis: Circumferential urinary bladder wall thickening and perivesicular fat stranding. Vessels: Vascular calcifications. Peritoneum/retroperitoneum: Right lower retroperitoneal fat stranding. Lymph nodes: No suspicious adenopathy. Bones: Osseous demineralization. Degenerative changes. Soft Tissues: Small bilateral fat-containing inguinal hernias. IMPRESSION: 1. Findings compatible with volume overload with small/moderate left and small right pleural effusions and small/moderate pericardial effusion. 2. Triple vessel coronary artery calcific atherosclerosis and calcific aortic valve disease. 3. Atrophic [place] kidneys. Perinephric fat stranding about the transplanted right pelvic kidney, can be due to renal insufficiency or pyelonephritis. 4. Mild urinary bladder wall thickening can be due to cystitis and/or chronic changes of partial bladder outlet obstruction from prostatomegaly. 5. Moderate volume of stool in the colon correlate for constipation. 6. Mild circumferential wall thickening of the mid to distal esophagus can be due to esophagitis. Signed by: Michael Pugh DO on 12/29/2019 1:45 AM
[2019-12-29] MEDS: ACETAMINOPHEN 1000 MG/100 ML IV PRN (05:12)
[2019-12-29 06:31] LABS: BASOPHILS % 0.2 % (0.0-1.0); HEMATOCRIT 28.4 % (38.2-49.6); HEMOGLOBIN 8.9 g/dL (14.0-18.0); LYMPHOCYTES # (AUTO) 0.4 (1.0-3.2); LYMPHOCYTES % 2.6 % (18.0-39.1); MEAN CORPUSCULAR HEMOGLOBIN 25.5 pg (28-32); MEAN CORPUSCULAR HGB CONC 31.3 g/dL (31-35); MEAN CORPUSCULAR VOLUME 81.4 fL (81-99); MONOCYTES # (AUTO) 1.3 (0.2-0.8); MONOCYTES % 8.3 % (4.4-11.3); NEUTROPHILS # (AUTO) 14.2 (2.1-6.9); NEUTROPHILS % 87.9 % (38.7-80.0); PLATELET COUNT 168 x10e3/uL (140-360); RED BLOOD COUNT 3.49 x10e6/uL (4.3-5.7); RED CELL DISTRIBUTION WIDTH 17.9 % (11.7-14.4)
[2019-12-29 06:38] LABS: ANION GAP 11.1 mmol/L (8-16); CALCIUM 8.1 mg/dL (8.4-10.2); CREATININE, SERUM 1.31 mg/dL (0.72-1.25); POTASSIUM 4.1 mmol/L (3.5-5.1)
--- NOTE | 2019-12-29 07:00 | NUR ---
received bedside report. pt is alert resting in bed, no s/s of distress. call light within reach. pt has no complaints at this time
--- NOTE | 2019-12-29 07:15 | NUR ---
Called and spoke with answering service (Bibi) for Dr. Esparza. Informed of new consult order. Reason for consult is sepsis. Awaiting on MD call back or MD visit today.
[2019-12-29] MEDS: MEROPENEM 1GM 100 ML IV SCH ×2 (08:28→20:58)
[2019-12-29] MEDS: CYCLOSPORINE 25 MG CAP PO SCH ×2 (08:30→17:47)
[2019-12-29] MEDS: TRIMETHOPRIM/SULFAMETHOXAZOLE 160-800 MG TAB PO SCH (08:30)
[2019-12-29] MEDS: INSULIN LISPRO 100 UNIT/1 ML 3ML VIAL SQ SCH ×7 (08:30→20:59)
[2019-12-29] MEDS: PREDNISONE 5 MG TAB PO SCH (08:30)
[2019-12-29] MEDS: METOPROLOL SUCCINATE 50 MG TAB XL PO SCH ×2 (08:31→17:47)
[2019-12-29] MEDS: SODIUM CHLORIDE 0.9% 1000ML 1,000 ML IV SCH (08:45)
--- NOTE | 2019-12-29 10:00 | NUR ---
attempted to insert 16 tajik carlos catheter. catheter would not advance through urinary meatus. second RN also attempted to insert carlos and was unsuccessful. notified Dr. Awad who was consulted for urinary retention. got verbal orders to check the patent's residual post void
[2019-12-29] MEDS ORDERED: BISACODYL 10 MG SUPP PR PRN (10:15)
[2019-12-29] MEDS ORDERED: BISACODYL 5 MG TAB EC PO PRN (10:15)
[2019-12-29] MEDS ORDERED: BISACODYL 5 MG TAB EC PO ONE (10:15)
[2019-12-29] MEDS ORDERED: BISACODYL 10 MG SUPP PR ONE (10:30)
[2019-12-29] MEDS ORDERED: MAGNESIUM HYDROXIDE 30 ML UDC PO ONE (10:30)
[2019-12-29] MEDS ORDERED: TAMSULOSIN HCL 0.4 MG CAP PO ONE (10:45)
--- NOTE | 2019-12-29 10:52 | History and Physical ---
CHIEF COMPLAINT: Fever and hematuria. HISTORY OF PRESENT ILLNESS: The patient is a 79-year-old male with recent BKA on the right, also TMA on the left by history came back into the hospital for fever, hematuria, and dysuria. The patient is with urinary tract infection and hypertension. CT scan showed constipation, fluid overload on CT chest and possible urinary obstruction due to enlarged prostate. The patient is stable, he is admitted for further evaluation. At baseline, the patient has renal transplant on multiple immunosuppressive medication. The patient is otherwise stable at this time. PAST MEDICAL HISTORY: Peripheral vascular disease, coronary disease, diabetes type 2, history of renal transplant, right BKA, left TMA, cataract surgery, history of enlarged prostate with TURP previously, dyslipidemia, insulin required diabetes type 2 and medical debility. SOCIAL HISTORY: The patient does not smoke or use alcohol. No regular drug. ALLERGIES: NO KNOWN ALLERGIES. CURRENT MEDICATIONS: He is on alendronate, calcium, vitamin D3, cyclosporine, insulin aspart, insulin, Levemir, losartan, metoprolol succinate, nifedipine, [place]-3 fatty acids, pravastatin, prednisone, sirolimus, Bactrim daily, and torsemide. PHYSICAL EXAMINATION: VITAL SIGNS: Temperature is 100.2, blood pressure 110/51, pulse rate is 88, and respirations 18. GENERAL: The patient is not in acute distress. He is awake. HEENT: Normocephalic and atraumatic. Anicteric. NECK: Supple grossly. PULMONARY: Diminished breath sounds at the bases. CARDIOVASCULAR: Regular rate and rhythm. ABDOMEN: Soft, EXTREMITIES: Right BKA, left TMA. No edema NEUROLOGIC: No focal deficit. LABORATORY DATA: WBC 16, hemoglobin is 9, hematocrit 28, platelet 168,000. Chemistry sodium is 135, potassium 4.1, chloride 103, bicarb 25, BUN is 24, creatinine 1.3, and glucose 139. Hemoglobin A1c 7.6. Lactic acid was 3.2, down to 1.3. CT chest, abdomen and pelvis showing that the patient had vascular congestion. Enlarged prostate. Possible urinary retention. IMPRESSION: 1. Sepsis with fever, leukocytosis and urinary tract infection. 2. Urinary bladder obstruction with enlarged prostate, previous TURP. 3. Constipation. 4. Fluid overload. PLAN: Continue with IV antibiotics. Consult Urology. Home medication, insulin with sliding scale coverage insulin. We will monitor the patient closely. MD DOE Campbell /[id number]
--- NOTE | 2019-12-29 15:01 | NUR ---
patient was able to void 100ml on his own, bladder scanner showed he retained 201 ml
--- NOTE | 2019-12-29 17:34 | NUR ---
Dr. Awad at the bedside and inserted 18fr carlos catheter with guide wire. 400 ml of urine emptied into carlos. pt tolerated well
[2019-12-29] MEDS: SENNA-S TABLET PO SCH (17:47)
--- NOTE | 2019-12-29 21:19 | Consultation ---
DATE OF CONSULTATION: 12/29/2019 Urology consultation REASON FOR CONSULTATION: Urinary retention and inability to catheterize. HISTORY OF PRESENT ILLNESS: Otoniel Sepulveda is a 79-year-old man who was admitted for fever. He reports having had some sort of prostate surgery over 10 years ago at [facility]. He does not recall who did it. The patient has not followed up with the urologist in the recent past. He had fevers, came to the hospital, was admitted. The patient had difficulty urinating and urological consultation was sought. Nurses attempted to place Beatty catheter and they could not get past the distal urethra. The patient also noted dysuria and hematuria upon presentation. He denies any previous urolithiasis. PAST MEDICAL SURGICAL HISTORY: 1. Peripheral vascular disease. 2. Status post right AKA. 3. Status post left transmetatarsal amputation. 4. Coronary artery disease. 5. Diabetes mellitus type 2. 6. Status post renal transplantation on the right-hand side due to chronic renal failure. 7. Cataract surgery. 8. BPH, status post TURP. 9. Dyslipidemia. 10. Medical debility. SOCIAL HISTORY: The patient denies smoking, ethanol, or drug use. 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 ALLERGIES: NONE KNOWN. CURRENT MEDICATIONS: Please refer to the MAR. FAMILY HISTORY: Noncontributory to the active urological problems. REVIEW OF SYSTEMS: Discussed as above in history of present illness and past medical history, otherwise negative for all systems. PHYSICAL EXAMINATION: GENERAL: Very pleasant 79-year-old man, sitting up in bed, in no apparent distress. VITAL SIGNS: He is currently afebrile. Vital signs are stable. ABDOMEN: Soft, nondistended, nontender without costovertebral angle tenderness. Kidneys not palpable. There are scars consistent with above surgery. GENITOURINARY: Testes descended bilaterally. Testes are nontender without any sign of infection in the scrotum. The patient has a circumcised male phallus with meatus appears to be slightly small. Digital rectal examination is deferred. For the remaining physical examination systems, please refer to the admission history and physical in the chart. PROCEDURE NOTE: The patient's genitalia were prepared and draped in usual sterile fashion. I injected lidocaine jelly directly in the penis and utilized the tip of the syringe to dilate the very distal urethra just inside the meatus. I then utilized a catheter guide an 18-Belizean coude tip Beatty to dilate the fossa navicularis region which is where the obstruction seems to be and some degree difficulty placed an 18-Belizean coude tip Beatty catheter. It was irrigated to and fro to ensure work properly, 400 mL of urinary retention was obtained. LABORATORY STUDIES: Blood and urine cultures are pending. White blood cell count 16,200, hemoglobin 8.9, and platelets a 168,000. The patient's creatinine is 1.31, sodium is low at 135. His calcium is low at 8.1. Urinalysis significant for 6-10 RBCs, greater than 50 WBCs, and moderate bacteria. CT scan of the abdomen and pelvis was performed it reveals 4.7 cm simple right renal cyst in the [place] kidney. There are atrophic [place] kidneys bilaterally, the transplant in the right lower quadrant. There are signs of BPH as well as bladder thickening from chronic outlet obstruction. ASSESSMENT: 1. Urethral stricture disease. 2. Urinary retention for 400 mL. 3. Anemia. 4. Leukocytosis. 5. Hematuria. 6. Dysuria. 7. Chronic renal insufficiency, status post renal transplantation. 8. Benign prostatic hyperplasia. 9. Renal cyst. 10. Atrophic [place] kidneys. 11. Urinary tract infection. PLAN: 1. Did not remove the Beatty catheter. 2. The patient will need cystoscopy and retrograde and dilation as needed. 3. I deferred the choice of intravenous antibiotics to the Infectious Disease service. 4. I recommend that a weaving machine operator be consulted to help and manage the patient's renal transplant if needed. Thank you very much for involving us in care of your patient. We will be happy to follow along with you as well as an outpatient. Alan Awad MD [place]/MODL /[id number] cc: Jose Alejandro Helm MD
[2019-12-29] MEDS: PRAVASTATIN 20 MG TAB PO SCH (21:27)
[2019-12-29] MEDS: TAMSULOSIN HCL 0.4 MG CAP PO SCH (21:27)
[2019-12-29] MEDS: INSULIN GLARGINE 100 UNITS/ML VIAL SQ SCH (21:28)
--- NOTE | 2019-12-29 22:00 | NUR ---
Assessment done.no resp.distress.no pain voiced.iv is leaking.new iv started to right for arm#22.bed alarm on.bed locked and in lowest position.call light within reach.instructed to call for assistance as needed.
--- NOTE | 2019-12-29 22:45 | Consultation ---
DATE OF CONSULTATION: 12/29/2019 HISTORY OF PRESENT ILLNESS: This is a 79-year-old who has history of BKA on the right, TMA on the left, peripheral vascular disease, comes in with fever, hematuria, not feeling well. CAT scan showed constipation, fluid overload. The patient was placed on antibiotic. The patient also has history of transplant on immunosuppressive. PAST MEDICAL HISTORY: As mentioned above, chronic kidney disease, peripheral vascular disease, atherosclerotic disease, coronary artery disease, diabetes mellitus, renal transplant, BKA, left TMA, cataract surgery, benign prostatic hypertrophy, TURP before, hyperlipidemia, diabetes mellitus, on insulin. SOCIAL HISTORY: There is no smoking, drug abuse or alcohol abuse. FAMILY HISTORY: Hypertension, diabetes. REVIEW OF SYSTEMS: CONSTITUTIONAL: He is just not feeling well. HEENT: Negative. PULMONARY: Negative. CARDIAC: Negative. LABORATORY DATA: White count 15.9 and came up to 16.2. Hemoglobin 9.5. His sodium of 135, potassium 4.5, creatinine 1.31. COVID-19 is still pending. The patient was admitted. MEDICATIONS: He is currently on insulin, prednisone, cyclosporine, meropenem, Dulcolax, and Flomax. PHYSICAL EXAMINATION: GENERAL: He is currently alert, oriented, does not seem to be in acute distress. VITAL SIGNS: Stable. Currently afebrile. HEENT: He is not icteric. NECK: Supple. CHEST: Clear. ABDOMEN: Soft. IMPRESSION: Sepsis on admission, concerned about urinary tract infection. Agreed with urine cultures and blood cultures, agreed with choice of antibiotic. Further recommendations to follow. MD JEROMY Bower/DULCE /[id number]
[2019-12-30] VITALS (8 sets, daily range): BP systolic 112–137; BP diastolic 51–70
--- NOTE | 2019-12-30 06:58 | NUR ---
Bed side shift report given to oncoming Rn.stable condition.
[2019-12-30] MEDS: INSULIN LISPRO 100 UNIT/1 ML 3ML VIAL SQ SCH ×7 (07:30→21:00)
[2019-12-30] MEDS: OMEGA PO SCH (08:03)
[2019-12-30] MEDS: CYCLOSPORINE 25 MG CAP PO SCH ×2 (08:03→15:40)
[2019-12-30] MEDS: SIROLIMUS 1 MG TABLET PO SCH (08:03)
[2019-12-30] MEDS: [UNRECOGNIZED DRUG - OTHER] PO SCH (08:03)
[2019-12-30] MEDS: TRIMETHOPRIM/SULFAMETHOXAZOLE 160-800 MG TAB PO SCH (08:03)
[2019-12-30] MEDS: MEROPENEM 1GM 100 ML IV SCH ×2 (08:03→21:02)
[2019-12-30] MEDS: PREDNISONE 5 MG TAB PO SCH (08:04)
[2019-12-30] MEDS: SENNA-S TABLET PO SCH ×2 (08:04→15:40)
[2019-12-30] MEDS: METOPROLOL SUCCINATE 50 MG TAB XL PO SCH ×2 (08:04→15:42)
--- NOTE | 2019-12-30 13:30 | NUR ---
DR. Esparza aware of AM T100.5
--- NOTE | 2019-12-30 17:33 | Progress Note ---
DATE: 12/30/2019 SUBJECTIVE: Mr. Sepulveda is doing much better. REVIEW OF SYSTEMS: HEENT: Negative. PULMONARY: Negative. CARDIAC: Negative. PHYSICAL EXAMINATION: GENERAL: He is currently alert and oriented. Does not seem to be in acute distress. VITAL SIGNS: Stable, afebrile. HEENT: Not icteric. NECK: Supple. CHEST: Clear. HEART: S1 and S2. No S3, S4, or murmur. ABDOMEN: Soft. IMPRESSION: 1. Urinary tract infection. Clinically, seems to be getting better on meropenem. So far blood cultures negative. 2. Chronic kidney disease. 3. Diabetes mellitus. 4. From Infectious Disease point of view, continue IV antibiotic as ordered until we get final culture results. We discussed with Urology. MD JEROMY Bower/DULCE /[id number]
--- NOTE | 2019-12-30 18:55 | NUR ---
Received the patient in report.lyeing in the bed.stable condition.no pain voiced.
--- NOTE | 2019-12-30 18:59 | NUR ---
Report given to oncoming nurse of patient's status. Resting in bed, side rails upx2, call light within reach. Resting with eyes closed. Respirations even and unlabored.
[2019-12-30] MEDS: INSULIN GLARGINE 100 UNITS/ML VIAL SQ SCH (21:00)
[2019-12-30] MEDS: PRAVASTATIN 20 MG TAB PO SCH (21:02)
[2019-12-30] MEDS: TAMSULOSIN HCL 0.4 MG CAP PO SCH (21:02)
[2019-12-31 00:07] VITALS: BP 128/64
[2019-12-31 05:23] VITALS: BP 136/59
[2019-12-31 05:56] LABS: BASOPHILS % 0.3 % (0.0-1.0); EOSINOPHILS # (AUTO) 0.1 (0.0-0.4); HEMATOCRIT 27.4 % (38.2-49.6); HEMOGLOBIN 8.6 g/dL (14.0-18.0); LYMPHOCYTES # (AUTO) 0.8 (1.0-3.2); LYMPHOCYTES % 11.7 % (18.0-39.1); MEAN CORPUSCULAR HEMOGLOBIN 25.5 pg (28-32); MEAN CORPUSCULAR HGB CONC 31.4 g/dL (31-35); MEAN CORPUSCULAR VOLUME 81.3 fL (81-99); MONOCYTES # (AUTO) 0.8 (0.2-0.8); MONOCYTES % 11.2 % (4.4-11.3); NEUTROPHILS # (AUTO) 5.3 (2.1-6.9); NEUTROPHILS % 75.4 % (38.7-80.0); PLATELET COUNT 162 x10e3/uL (140-360); RED BLOOD COUNT 3.37 x10e6/uL (4.3-5.7); RED CELL DISTRIBUTION WIDTH 18.1 % (11.7-14.4)
[2019-12-31 06:24] LABS: ANION GAP 10.1 mmol/L (8-16); BLOOD UREA NITROGEN 23 mg/dL (7-26); BUN/CREATININE RATIO 20 (6-25); CALCIUM 7.9 mg/dL (8.4-10.2); CARBON DIOXIDE 26 mmol/L (22-29); CHLORIDE 106 mmol/L (98-107); CREATININE, SERUM 1.13 mg/dL (0.72-1.25); EST GLOMERULAR FILTRATION RATE > 60 ML/MIN (60-); GLUCOSE 97 mg/dL (74-118); POTASSIUM 4.1 mmol/L (3.5-5.1); SODIUM 138 mmol/L (136-145)
--- NOTE | 2019-12-31 07:00 | NUR ---
BEDSIDE SHIFT REPORT RECEIVED FROM THE MALE IMPERSONATOR RN. EDUCATED PT ABOUT FALL PRECAUTIONS. CALL LIGHT WITH IN EASY REACH. INSTRUCTED PT TO USE CALL LIGHT FOR ALL THE NEEDS. PT VERBALIZED UNDERSTANDING. BED ALARM IS ON. BED IS LOW AND LOCKED. SIDE RAILS X2. PT DENIES NEEDS AT THIS TIME.
--- NOTE | 2019-12-31 07:00 | NUR ---
BED SIDE SHIFT REPORT GIVEN TO ONCOMING RN.STABLE CONDITION.
[2019-12-31] MEDS: INSULIN LISPRO 100 UNIT/1 ML 3ML VIAL SQ SCH ×7 (07:30→21:40)
[2019-12-31 07:47] VITALS: BP 127/63
[2019-12-31] MEDS: MEROPENEM 1GM 100 ML IV SCH ×2 (08:25→21:40)
[2019-12-31] MEDS: PREDNISONE 5 MG TAB PO SCH (08:33)
[2019-12-31] MEDS: SENNA-S TABLET PO SCH ×2 (08:33→16:56)
[2019-12-31] MEDS: TRIMETHOPRIM/SULFAMETHOXAZOLE 160-800 MG TAB PO SCH (08:33)
[2019-12-31] MEDS: CYCLOSPORINE 25 MG CAP PO SCH ×2 (08:34→16:56)
[2019-12-31] MEDS: METOPROLOL SUCCINATE 50 MG TAB XL PO SCH ×2 (08:34→16:56)
[2019-12-31] MEDS: OMEGA PO SCH (08:35)
[2019-12-31] MEDS: [UNRECOGNIZED DRUG - OTHER] PO SCH (08:35)
[2019-12-31] MEDS: SIROLIMUS 1 MG TABLET PO SCH (10:00)
--- NOTE | 2019-12-31 11:10 | Progress Note ---
DATE: 12/31/2019 SUBJECTIVE: The patient is seen and evaluated. Available labs and notes reviewed. Discussed with the patient. Discussed with the nurse. REVIEW OF SYSTEMS: No nausea, vomiting, fever, chills, chest pain, shortness of breath, headache, rash, dysuria, or polyuria. OBJECTIVE: VITAL SIGNS: Temperature 98.3, pulse is 72, respirations 18, and blood pressure 127/63. GENERAL: Alert and oriented, seems to be weak, no acute distress. CV: S1, S2. CHEST: Equal expansion. Clear to auscultation. No acute distress. ABDOMEN: Soft, nontender. No distention. HEENT: Moist. No pallor. No JVD. EXTREMITIES: Old right BKA, otherwise no obvious acute finding. The patient has a Beatty catheterization. MEDICATIONS: Medication list reviewed. From ID point of view, the patient is on meropenem and Bactrim p.o. LABORATORY STUDIES: White count of 7.03, improved from 16.2, hemoglobin 9.6, platelet 162. Sodium 138, potassium 4.1, creatinine 1.13. SEROLOGY: Coronavirus PCR not detected on 12/28/2019. MICROBIOLOGY: Urine culture on 12/27, negative 48 hours. Blood culture on 12/28, no growth 48 hours. Urine culture on 12/28, also no growth 48 hours. RADIOLOGY STUDIES: No new radiology studies available. He had a CT of the chest on 12/28/2019, which showed volume overload, small moderate left and small right pleural effusion and small moderate pericardial effusion. The patient was found to have atrophic [place] kidneys on CT with mild urinary bladder wall thickening, can be due to cystitis and/or chronic changes of a partial bladder outlet obstruction from prostatomegaly. ASSESSMENT AND PLAN: 1. Urinary tract infection. 2. Chronic kidney disease. 3. Diabetes. 4. The patient remains on meropenem. Urine cultures negative x2. Blood cultures negative. The patient remains with Beatty catheterization. The patient also on Bactrim. Discussed with Dr. Esparza. Please refer to chart for more information. Dictated by Maurisio Gonzalez PA-C (Al) Andres Esparza MD /MODL /[id number]
[2019-12-31 11:35] VITALS: BP 128/60
--- NOTE | 2019-12-31 11:36 | Consultation ---
DATE OF CONSULTATION: 12/31/2019 HISTORY OF PRESENT ILLNESS: Mr. Otoniel Sepulveda is known to our Nephrology Service, status post kidney transplant. He is a 79-year-old gentleman. Initial decline in kidney function was due to diabetes and diabetic nephropathy, presented with urinary retention, possible UTI, significantly elevated white count of 16.2. Currently lying supine, asymptomatic, had a Beatty catheter placed. He is nonoliguric. Denies shortness of breath, nausea, and vomiting. LABORATORY DATA: Shows sodium 138, potassium 4.1, bicarbonate 26, creatinine 1.13 down from 1.31. His cultures, blood and urine are so far negative. He has had abdominal CT pelvis, please see official report, shows mild urinary bladder thickening. It suggests a transplant kidney in the right pelvis, but no hydro there. He is otherwise awake, alert, lying supine. PAST MEDICAL HISTORY: Congestive heart failure, hypertension, cataract, renal transplant, history of gangrenous right toe, history of peripheral vascular disease, diabetes, diabetic nephropathy, diabetic neuropathy. He is currently maintained on Rapamune 1 mg p.o. once a day and cyclosporine 50 mg in the morning, 25 mg in the evening, also prednisone 5 mg daily. SOCIAL HISTORY: Does not smoke or drink. FAMILY HISTORY: Significant for diabetes. ALLERGIES: NO APPARENT DRUG ALLERGIES. CURRENT MEDICATIONS: The patient is on prednisone 5 mg daily, currently on insulin, ondansetron, pravastatin, prednisone 5 mg daily. He is on Rapamune and cyclosporine. He is on meropenem 1 g IV q.12. Infectious Disease following. I will adjust the cyclosporine 25 mg in the morning, 50 mg at bedtime. Start low-dose Lasix. PHYSICAL EXAMINATION: GENERAL: Awake, alert, and oriented x3, lying supine, in no apparent distress. VITAL SIGNS: Blood pressure of 127/63, pulse rate 72, afebrile. HEAD AND NECK: Cornea clear. Oral mucosa moist. Neck veins flat. LUNGS: Few bibasilar rales. HEART: S1 and S2 audible. ABDOMEN: Otherwise soft and nontender. No apparent visceromegaly. Nontender exam. EXTREMITIES: Lower extremity examination shows no edema. IMPRESSION AND PLAN: Mild fluid overload, cataract, renal transplant, on Rapamune, prednisone, and cyclosporine. Serum creatinine improved. No hydro on initial CT. Cultures pending, on meropenem. Defer to ID. Beatty in place. Please see orders. Discussed with RN. MD OLIVIA Rich/DULCE /[id number]
[2019-12-31] MEDS ORDERED: ONDANSETRON HCL 4 MG ORAL DISINTEGRATING TAB PO PRN (14:45)
[2019-12-31 15:37] VITALS: BP 126/70
--- NOTE | 2019-12-31 19:10 | NUR ---
Patient visited in room during nursing rounds. Patient alert and oriented x3 but persian speaking only. Beatty catheter in place for urinary retention. Pt afebrile at this time. Patient on scheduled IV antibiotic treatment. Patient has right BKA and no toes on left foot. Call cordero within reach. Will monitor closely.
--- NOTE | 2019-12-31 19:20 | NUR ---
BEDSIDE SHIFT REPORT GIVEN TO THE PHYSICIAN OFFICE CLIN ASST RN. PT DENIED FURTHER NEEDS.
[2019-12-31 20:14] VITALS: BP 151/70
[2019-12-31] MEDS: TAMSULOSIN HCL 0.4 MG CAP PO SCH (21:40)
[2019-12-31] MEDS: PRAVASTATIN 20 MG TAB PO SCH (21:40)
[2019-12-31] MEDS: INSULIN GLARGINE 100 UNITS/ML VIAL SQ SCH (21:40)
[2019-12-31] MEDS ORDERED: SODIUM CHLORIDE 0.9% 250ML 250 ML ONE (21:42)
[2020-01-01] VITALS (8 sets, daily range): BP systolic 126–150; BP diastolic 60–89
--- NOTE | 2020-01-01 07:28 | NUR ---
PATIENT IN BED RESTING WITH HEAD OF BED ELEVATED, NO DISTRESS NOTED. CONSTANTINO CATHETER DRAINING CLEAR YELLOW URINE. BED IN LOWER POSITION, CALL LIGHT AT REACH.
[2020-01-01] MEDS: INSULIN LISPRO 100 UNIT/1 ML 3ML VIAL SQ SCH ×7 (07:30→21:00)
[2020-01-01] MEDS: MEROPENEM 1GM 100 ML IV SCH ×2 (08:00→16:04)
[2020-01-01] MEDS: [UNRECOGNIZED DRUG - OTHER] PO SCH (09:00)
[2020-01-01] MEDS: SIROLIMUS 1 MG TABLET PO SCH (09:00)
[2020-01-01] MEDS: OMEGA PO SCH (09:00)
[2020-01-01] MEDS: PREDNISONE 5 MG TAB PO SCH (09:13)
[2020-01-01] MEDS: FUROSEMIDE 40 MG TAB PO SCH (09:13)
[2020-01-01] MEDS: CYCLOSPORINE 25 MG CAP PO SCH ×2 (09:13→17:03)
[2020-01-01] MEDS: METOPROLOL SUCCINATE 50 MG TAB XL PO SCH ×2 (09:14→17:03)
[2020-01-01] MEDS: SENNA-S TABLET PO SCH ×2 (09:14→17:03)
--- NOTE | 2020-01-01 10:31 | Progress Note ---
DATE: 01/01/2020 SUBJECTIVE: The patient is seen and evaluated. Available labs and notes reviewed. Discussed with Dr. Esparza. Discussed with the staff and discussed with the patient. No new events. The patient has no complaints. No nausea, vomiting, fever, chills, chest pain, shortness of breath, headache, rash, or dysuria. PHYSICAL EXAMINATION: VITAL SIGNS: Temperature is 98.2, pulse 70, respirations 18, and blood pressure 150/67. GENERAL: Alert and oriented. No acute distress. CV: S1 and S2. CHEST: Equal expansion. Clear to auscultation. No acute distress. ABDOMEN: Soft and nontender. No distention. HEENT: Moist. No pallor. No JVD. MEDICATIONS: Medication list reviewed and from ID point of view, the patient is on meropenem, Bactrim was stopped yesterday. LABORATORY STUDIES: White count of 7.03, improved from 16.2, hemoglobin 8.6, and platelet 162. No new BMP available. Last sodium was 138 and potassium of 4.1 and creatinine level of 1.13, improved from 1.31. MICROBIOLOGY: Blood culture negative, 72 hours. Urine culture on 12/27 and 12/28, both are negative. RADIOLOGY: No new radiology studies available. ASSESSMENT AND PLAN: 1. Recent history of urinary tract infection. 2. Urinary retention. 3. Chronic kidney disease, improved creatinine level. 4. Diabetes. 5. Cultures negative so far. 6. Remains on meropenem, we changed the dose to 500 q.8, since kidney function has improved. Needs a clearance for cysto retrograde by , remains with Beatty cath. 7. Continue to monitor the patient clinically and follow with the labs. Dictated by Maurisio Gonzalez PA-C (Al) Andres Esparza MD /MODL /[id number]
--- NOTE | 2020-01-01 11:48 | NUR ---
DR. GUILLEN GAVE CLEARANCE FOR SURGICAL PROCEDURE.
[2020-01-01 12:39] LABS: BASOPHILS % 0.3 % (0.0-1.0); EOSINOPHILS # (AUTO) 0.1 (0.0-0.4); EOSINOPHILS % 2.2 % (0.0-6.0); HEMATOCRIT 31.5 % (38.2-49.6); HEMOGLOBIN 9.7 g/dL (14.0-18.0); LYMPHOCYTES # (AUTO) 0.8 (1.0-3.2); LYMPHOCYTES % 11.8 % (18.0-39.1); MEAN CORPUSCULAR HEMOGLOBIN 25.4 pg (28-32); MEAN CORPUSCULAR HGB CONC 30.8 g/dL (31-35); MEAN CORPUSCULAR VOLUME 82.5 fL (81-99); MONOCYTES # (AUTO) 0.7 (0.2-0.8); MONOCYTES % 11.7 % (4.4-11.3); NEUTROPHILS # (AUTO) 4.7 (2.1-6.9); NEUTROPHILS % 73.7 % (38.7-80.0); PLATELET COUNT 211 x10e3/uL (140-360); RED BLOOD COUNT 3.82 x10e6/uL (4.3-5.7); RED CELL DISTRIBUTION WIDTH 18.1 % (11.7-14.4)
[2020-01-01 13:05] LABS: ANION GAP 12.6 mmol/L (8-16); BLOOD UREA NITROGEN 15 mg/dL (7-26); BUN/CREATININE RATIO 17 (6-25); CALCIUM 8.7 mg/dL (8.4-10.2); CARBON DIOXIDE 24 mmol/L (22-29); CHLORIDE 108 mmol/L (98-107); CREATININE, SERUM 0.88 mg/dL (0.72-1.25); EST GLOMERULAR FILTRATION RATE > 60 ML/MIN (60-); POTASSIUM 3.6 mmol/L (3.5-5.1); SODIUM 141 mmol/L (136-145)
[2020-01-01 13:20] LABS: GLUCOSE 69 mg/dL (74-118)
--- NOTE | 2020-01-01 15:38 | NUR ---
PATIENT EXERCISED IN ROOM WITH PHYSICAL THERAPY, OUT OF BED TO WHEEL CHAIR. CALL LIGHT AT REACH. INSTRUCTED TO CALL FOR ASSISTANCE NEEDED.
--- NOTE | 2020-01-01 17:11 | NUR ---
Patient is Mod I in bed mobility and bed <> chair transfers. She is at her baseline functional level at this time. Discontinuing PT services.Thank you. Addendum: 01/01/20 at 1712 by Kofi rodriguez PT Amended: Links added.
--- NOTE | 2020-01-01 19:05 | NUR ---
BED SIDE SHIFT REPORT GIVEN TO ON COMING NURSE.
--- NOTE | 2020-01-01 19:10 | NUR ---
Patient visited in room during nursing rounds. Patient alert and oriented x3 but luxembourgish speaking only. Beatty catheter in place for urinary retention. Pt afebrile at this time. Patient on scheduled IV antibiotic treatment. Patient has right BKA and no toes on left foot. Call cordero within reach. Will monitor closely.
--- NOTE | 2020-01-01 19:50 | NUR ---
Nurse (Jeffrey) spoke with patient's son (Patrick Sepulveda) via phone to inform of plan for procedure (Cystoscopy and Retrograde, Urethral stricture dilation). Patient son agreed to translate for nurse while explaining about procedure and for pt to sign consent form.
--- NOTE | 2020-01-01 19:58 | NUR ---
With help from kole Sepulveda to translate in Czech, Nurse at bedside explain to patient about procedure tomorrow and pt agreed to sign consent form.
[2020-01-01] MEDS: INSULIN GLARGINE 100 UNITS/ML VIAL SQ SCH (21:00)
[2020-01-01] MEDS: TAMSULOSIN HCL 0.4 MG CAP PO SCH (23:00)
[2020-01-01] MEDS: PRAVASTATIN 20 MG TAB PO SCH (23:00)
--- NOTE | 2020-01-01 23:30 | NUR ---
[facility] in preparation for tomorrow's procedure (Cystoscopy with retrograde). Pt tolerated bath well.
[2020-01-02] VITALS (8 sets, daily range): BP systolic 117–164; BP diastolic 58–82
[2020-01-02] MEDS: MEROPENEM 1GM 100 ML IV SCH ×3 (00:19→16:00)
--- NOTE | 2020-01-02 07:00 | NUR ---
received bedside report. pt is resting in bed, no s/s of distress. call light within reach and instructed pt to call RN for help
[2020-01-02] MEDS: INSULIN LISPRO 100 UNIT/1 ML 3ML VIAL SQ SCH ×7 (07:30→20:26)
[2020-01-02] MEDS: [UNRECOGNIZED DRUG - OTHER] PO SCH (08:29)
[2020-01-02] MEDS: OMEGA PO SCH (08:29)
[2020-01-02] MEDS: SIROLIMUS 1 MG TABLET PO SCH (08:30)
[2020-01-02] MEDS ORDERED: SODIUM CHLORIDE 0.9% 250ML 250 ML ONE (08:38)
[2020-01-02] MEDS: FUROSEMIDE 40 MG TAB PO SCH (08:42)
[2020-01-02] MEDS: PREDNISONE 5 MG TAB PO SCH (08:42)
[2020-01-02] MEDS: CYCLOSPORINE 25 MG CAP PO SCH ×2 (08:42→17:09)
[2020-01-02] MEDS: METOPROLOL SUCCINATE 50 MG TAB XL PO SCH ×2 (08:43→17:09)
[2020-01-02] MEDS: SENNA-S TABLET PO SCH ×2 (08:43→17:09)
--- NOTE | 2020-01-02 10:36 | Progress Note ---
DATE: 01/02/2020 SUBJECTIVE: The patient is seen and evaluated. Available labs and notes reviewed. Discussed with Dr. Esparza in details. Please refer to the chart for more information. REVIEW OF SYSTEMS: No nausea, vomiting, fever, chills, chest pain, shortness of breath, headache, rash, dysuria, the patient states that he is ready for surgery. PHYSICAL EXAMINATION: VITAL SIGNS: Temperature is 98.5, pulse is 77, respirations 18, and blood pressure 160/65. GENERAL: Alert and oriented, in no acute distress. CV: S1, S2. CHEST: Equal expansion. Clear to auscultation. No acute distress. ABDOMEN: Soft. No tenderness. No distention. HEENT: Moist. No pallor. No JVD. MEDICATIONS: Medication list reviewed. From ID point of view, the patient is on Merrem. LABORATORY STUDIES: No new CBC or BMP from today. MICROBIOLOGY: No new microbiology studies available. RADIOLOGY: No new radiology studies available. ASSESSMENT AND PLAN: 1. Urinary tract infection-check urine cultures, negative. 2. Urinary retention. Plan for surgery today with dilation of urethral stricture. 3. Chronic kidney disease. 4. Leukocytosis, resolved. 5. Diabetes. 6. Debility, multifactorial. 7. Continue with meropenem. Merrem was redosed since creatinine improved to 0.88. 8. Continue with antibiotic. Monitor the patient clinically, follow up with the labs. Please refer to the chart for more information. Dictated by Maurisio Gonzalez PA-C (Al) Andres Esparza MD /MODL /[id number]
[2020-01-02] MEDS ORDERED: B&O 60MG R/S 60 MG SUPP PR ONE (11:42)
[2020-01-02] MEDS ORDERED: IOPAMIDOL 300MG/ML 50ML INFUS..BTL IV ONE (11:42)
[2020-01-02] MEDS ORDERED: MIDAZOLAM HCL 2 MG/2 ML VIAL ONE (14:27)
[2020-01-02] MEDS ORDERED: FENTANYL CITRATE/PF 100MCG/2 ML INJ ONE (14:27)
[2020-01-02] MEDS ORDERED: LIDOCAINE HCL 2% LOCAL INJ 5 ML SDV VIAL INJ ONE (19:47)
[2020-01-02] MEDS ORDERED: PROPOFOL IV EMULSION 10 MG/ML 20 ML VIAL ONE (19:47)
[2020-01-02] MEDS ORDERED: ONDANSETRON HCL INJ 2MG/ML 2ML 2 MG/ML VIAL ONE (19:47)
[2020-01-02] MEDS ORDERED: DESFLURANE 240 ML BTL INH ONE (19:47)
[2020-01-02] MEDS ORDERED: DEXAMETHASONE SOD PHOS INJ 4 MG/ML VIAL ONE (19:47)
[2020-01-02] MEDS: INSULIN GLARGINE 100 UNITS/ML VIAL SQ SCH (20:26)
[2020-01-02] MEDS: PRAVASTATIN 20 MG TAB PO SCH (20:26)
[2020-01-02] MEDS: TAMSULOSIN HCL 0.4 MG CAP PO SCH (20:26)
--- NOTE | 2020-01-02 20:26 | NUR ---
WALKING ROUNDS PERFORMED, RECEIVED PT LAYING SEMI FOWLERS IN BED, AAOX3, RR EVEN AND NON-LABORED, ON ROOM AIR. NO S/SX OF DISTRESS NOTED. IV TO (R) WRIST NOTED. AM NURSE REPORTS IV INFILTRATED AND WILL REMOVE PRIOR TO LEAVING SHIFT. LEFT PT LAYING SEMI FOWLERS IN BED, BED IN LOW LOCKED POSITION, SIDE RAILS UPX2, CALL LIGHT AND PHONE WITHIN REACH. Addendum: 01/04/20 at 0138 by Irma Johnson RN INCORRECT TIME CORRECT TIME 01/02/20 AT 1900
[2020-01-03] VITALS (8 sets, daily range): BP systolic 113–142; BP diastolic 53–72
[2020-01-03] MEDS: MEROPENEM 1GM 100 ML IV SCH ×4 (00:03→23:46)
--- NOTE | 2020-01-03 07:00 | NUR ---
received bedside report. pt is sleeping, no s/s of distress. call light within reach
[2020-01-03] MEDS: INSULIN LISPRO 100 UNIT/1 ML 3ML VIAL SQ SCH ×7 (07:30→21:55)
[2020-01-03] MEDS: [UNRECOGNIZED DRUG - OTHER] PO SCH (08:43)
[2020-01-03] MEDS: SIROLIMUS 1 MG TABLET PO SCH (08:43)
[2020-01-03] MEDS: OMEGA PO SCH (08:43)
[2020-01-03] MEDS: FUROSEMIDE 40 MG TAB PO SCH (09:08)
[2020-01-03] MEDS: SENNA-S TABLET PO SCH ×2 (09:08→17:15)
[2020-01-03] MEDS: PREDNISONE 5 MG TAB PO SCH (09:08)
[2020-01-03] MEDS: CYCLOSPORINE 25 MG CAP PO SCH ×2 (09:08→17:15)
[2020-01-03] MEDS: METOPROLOL SUCCINATE 50 MG TAB XL PO SCH ×2 (09:10→17:15)
--- NOTE | 2020-01-03 10:01 | NUR ---
spoke with Patrick Sepulveda (son) about pt's status and discharge plan. questions/concerns addressed
--- NOTE | 2020-01-03 13:08 | Progress Note ---
DATE: 01/03/2020 SUBJECTIVE: The patient is seen and evaluated. Available labs and notes reviewed. Discussed with the nurse. REVIEW OF SYSTEMS: Some complaints of discomfort in the genitalia area, which he had a procedure done. No fever, chills, vomiting, headache, or rash. PHYSICAL EXAMINATION: VITAL SIGNS: Temperature is 98.4, pulse 97, respiration 19, and blood pressure 142/68. GENERAL: Alert and oriented. No acute distress. CV: S1 and S2. CHEST: Equal expansion. Clear to auscultation. No acute distress. ABDOMEN: Soft and nontender. No distention. HEENT: Moist. No pallor. No JVD. EXTREMITIES: Weak. No obvious sign of cyanosis. LABORATORY STUDIES: White count is 6.34, hemoglobin 9.7, and platelet 211. No new BMP from today. MICROBIOLOGY: No new microbiology studies available. RADIOLOGY STUDIES: Status post retrograde pyelogram by Urology. ASSESSMENT AND PLAN: 1. Extended-spectrum beta-lactamase bacteremia on blood culture from 12/28/2019, status post cystoscopy with dilation of urethral stricture. 2. Urine culture negative. 3. The patient remains on Merrem. Creatinine improved to 0.88. Discussed with Dr. Esparza. Please refer to the chart for more information. Dictated by Maurisio Gonzalez PA-C (Al) Andres Esparza MD /MODL /[id number]
--- NOTE | 2020-01-03 19:10 | NUR ---
WALKING ROUNDS PERFORMED, RECEIVED PT LAYING SEMI FOWLERS IN BED, AAOX3, RR EVEN AND NON-LABORED, ON ROOM AIR. NO S/SX OF DISTRESS NOTED. LEFT PT LAYING SEMI FOWLERS IN BED, BED IN LOW LOCKED POSITION, SIDE RAILS UPX2, CALL LIGHT AND PHONE WITHIN REACH.
[2020-01-03] MEDS: PRAVASTATIN 20 MG TAB PO SCH (21:55)
[2020-01-03] MEDS: INSULIN GLARGINE 100 UNITS/ML VIAL SQ SCH (21:55)
[2020-01-03] MEDS: TAMSULOSIN HCL 0.4 MG CAP PO SCH (21:55)
[2020-01-04] VITALS: BP 168/87
[2020-01-04 04:00] VITALS: BP 133/67
--- NOTE | 2020-01-04 07:00 | NUR ---
received bedside report. pt is sleeping, no s/s of distress. call light within reach
[2020-01-04] MEDS: INSULIN LISPRO 100 UNIT/1 ML 3ML VIAL SQ SCH ×4 (07:19→11:19)
[2020-01-04 07:45] VITALS: BP 149/75
[2020-01-04 07:56] VITALS: BP 149/75
[2020-01-04] MEDS: MEROPENEM 1GM 100 ML IV SCH (08:00)
[2020-01-04] MEDS: SIROLIMUS 1 MG TABLET PO SCH (08:13)
[2020-01-04] MEDS: METOPROLOL SUCCINATE 50 MG TAB XL PO SCH (08:13)
[2020-01-04] MEDS: SENNA-S TABLET PO SCH (08:13)
[2020-01-04] MEDS: FUROSEMIDE 40 MG TAB PO SCH (08:13)
[2020-01-04] MEDS: PREDNISONE 5 MG TAB PO SCH (08:13)
[2020-01-04] MEDS: OMEGA PO SCH (08:13)
[2020-01-04] MEDS: [UNRECOGNIZED DRUG - OTHER] PO SCH (08:13)
[2020-01-04] MEDS: CYCLOSPORINE 25 MG CAP PO SCH (08:13)
[2020-01-04 11:29] VITALS: BP 140/56
--- NOTE | 2020-01-04 11:54 | Discharge Summary ---
PRIMARY CARE PHYSICIAN: Jose Alejandro Helm MD CONSULTANTS: 1. Dr. Alan Awad. 2. Dr. Navid Hess. 3. Dr. Andres Esparza. FINAL DIAGNOSES: 1. Klebsiella pneumoniae extended spectrum beta-lactamase bacteremia associated with urinary tract infection and prostatitis is treated. The patient is afebrile. 2. History of renal transplant. 3. Urinary retention, status post cystoscopy with urethral dilatation. 4. Baseline chronic fluid overload with congestive heart failure compensated. SUMMARY: The patient is a 79 years male came into the hospital because he was having difficulty with urinating and urinary retention. The patient was also have a urinary bladder infection. The patient also constipated. He has fluid overload due to his chronic kidney disease. He has a renal transplant previously. He has also had fever. The patient's blood culture grew out to be Klebsiella pneumoniae ESBL. The patient has been on antibiotics. He doing well. He underwent cystoscopy and had urethral dilatation. Currently, he is urinating and urine looked clean. No blood. No sign of pus. The patient is stable. He is comfortable. He is eating. He is doing well. The patient will be going home today. We will continue with his antibiotic treatment for 2 weeks, given the fact that he may have prostatitis is Cipro 250 mg twice a day for two weeks. Senna S one tablet b.i.d. Flomax 0.4 mg at night. The patient is otherwise, stable. He will follow up with Dr. Alan Awad because of status post urethral dilatation. He will follow up with his family physician, Dr. Jose Alejandro Helm within 1 to 2 weeks. The patient is otherwise, stable. He will go home today. Lab work as follows. LABORATORY DATA: Sodium is 141, potassium 3.6, chloride 108, bicarb 24, BUN 15, creatinine 0.8, glucose 69. WBC 6.3, hemoglobin 9.7, hematocrit 31.5, and platelets are 211. Liver enzyme is otherwise unremarkable and normal. The patient is stable. Discharged home. Renal cardiac diet. Continue with home medication. Follow up as instructed. MD YOGI Campbell/DULCE /[id number]
--- NOTE | 2020-01-04 13:24 | Progress Note ---
DATE: 01/04/2020 SUBJECTIVE: The patient seen and evaluated. Please refer to chart for more information. Discussed with Dr. Esparza and nurse in details. The patient is seen with the nurse in the room. REVIEW OF SYSTEMS: No nausea, vomiting, fever, chills, chest pain, shortness of breath, headache, rash, dysuria, or polyuria. PHYSICAL EXAMINATION: VITAL SIGNS: Temperature is 98.1, pulse 65, respirations 18, and blood pressure 149/75. GENERAL: Alert and oriented, in no acute distress. CV: S1, S2. CHEST: Equal expansion, clear to auscultation, in no acute distress. HEENT: Moist. No pallor. No JVD. EXTREMITIES: Weak. MEDICATIONS: From ID point of view, the patient is on meropenem. LABORATORY STUDIES: No new CBC or BMP available. Coronavirus PCR not detected on 12/28/2019. MICROBIOLOGY: ESBL, Klebsiella in blood one set and the other set is clean. Urine culture did not show any growth on 12/27 and 12/28. IMAGING DATA: No radiology study is available. ASSESSMENT AND PLAN: 1. Bacteremia with Klebsiella ESBL, on meropenem. Discharge plan noted, spoke with Dr. Driver. Prescription is given by Dr. Driver for Cipro for 2 weeks. 2. Status post cystoscopy and dilation of urethral stricture. 3. Diabetes. 4. Debility. 5. Hypertension. 6. Anemia. Continue to monitor the patient clinically, follow with the labs. Discharge in progress. Please refer to chart for more information. Dictated by Maurisio Gonzalez PA-C (Al) Andres Esparza MD /MODL /[id number]
--- OUTSIDE RECORDS SUMMARY | 2020-02-07 21:26 | XMS REPORT | Continuity of Care Document ---
Author Author [facility] t Organization [facility] Address [address] [place] [address] Phone Unavailable Care Team Providers Care Pulp Mixer Name Role Phone HILDA MONTALVO, MD LIN PCP ED SHETTY Attphys Unavailable FUENTES DAVE Attphys Unavailable ED SHETTY Admphyjessi Unavailable Payers Payer Name Policy Type Policy Number Effective Date Expiration Date Jessi steward [facility] [id number] 2019 00:00:00 [facility] Cdc Review Covid19 [id number] [facility] Medicare A & B [id number] 2002 00:00:00 [facility] Problems Condition Name Condition Details Condition Category Status Onset Date Resolution Date Last Treatment Date Treating Clinician Comments Source Cellulitis of foot Cellulitis of foot Problem Active 2015-11-24 00:00:0 0 [facility] Gangrene of toe Gangrenous toe Problem Active 2015-11-24 00:00:00 [facility] Peripheral arterial disease PAD (peripheral artery disease) Problem Active [facility] Gangrene of toe of right foot Gangrene of toe of right foot Problem Active [facility] Urinary tract infection Problem Active [facility] Allergies, Adverse Reactions, Alerts Allergy Name Allergy Type Status Severity Reaction(s) Onset Date Inacti ve Date Treating Clinician Comments Source No Known Allergies DA Active U 2019-11-03 00:00:00 [facility] No Known Allergies DA Active U 2016-05-24 00:00:00 [facility] Social History Social Habit Start Date Stop Date Quantity Comments Source Sex Assigned At 1940 00:00:00 1940 00:00:00 Male [facility] Medications Ordered Medication Name Filled Medication Name Start Date Stop Da te Current Medication? Ordering Clinician Indication Dosage Frequency Signature (SIG) Comments Components Source Alendronate Sodium Alendronate Sodium Yes 70 Us e As Directed [facility] Calcium Carbonate (Tums) 200 Mg TAB.CHEW Calcium Carbo pati (Tums) 200 Mg TAB.CHEW Yes Daily [facility] Cholecalciferol (Vitamin D3) (Vitamin D3) 1,000 Unit T ABLET Cholecalciferol (Vitamin D3) (Vitamin D3) 1,000 Unit TABLET Yes 2 Daily [facility] Cyclosporine Cyclosporine Yes 25 Twice A Day [facility] Insulin Aspart (Novolog) 100 Unit/1 Ml CARTRIDGE Insul in Aspart (Novolog) 100 Unit/1 Ml CARTRIDGE Yes Three Times Daily With Meals [facility] Insulin Detemir (Levemir) 100 Unit/1 Ml VIAL Insulin D etemir (Levemir) 100 Unit/1 Ml VIAL Yes Bedtime [facility] Losartan Potassium Losartan Potassium Yes 25 Da gwendolyn [facility] Metoprolol Succinate Metoprolol Succinate Yes 100 Twice A Day [facility] Nifedipine Nifedipine Yes 90 Daily [facility] [place]-3 Fatty Acids ([place]-3) 1,000 Mg CAPSULE [place]-3 Fatty Acids ([place]-3) 1,000 Mg CAPSULE Yes 300 Daily [facility] Pravastatin Sodium Pravastatin Sodium Yes 10 Be dtime [facility] Prednisone Prednisone Yes 5 Daily [facility] Sirolimus (Rapamune) 1 Mg TABLET Sirolimus (Rapamune) 1 Mg TABLET Yes 1 Daily [facility] Sulfamethoxazole/Trimethoprim (Sulfamethoxazole-Tmp Ds Tablet) 1 Each TABLET Sulfamethoxazole/Trimethoprim (Sulfamethoxazole-Tmp Ds Tablet) 1 Each TABLET Yes 1 Daily [facility] Torsemide Torsemide Yes 10 Twice A Day [facility] Acetaminophen With Codeine (Tylenol With Codeine #3 Ta blet) 1 Each TABLET Acetaminophen With Codeine (Tylenol With Codeine #3 Tablet) 1 Each TABLET 2018-10-19 00:00:00 No 300 Every 6 Hours as nee ded for Pain [facility] Calcium Carbonate (Tums) 300 Mg TAB.CHEW Calcium Carbo pati (Tums) 300 Mg TAB.CHEW 2018-10-19 00:00:00 No 2 Daily [facility] Ciprofloxacin Hcl (Cipro) 500 Mg TABLET Ciprofloxacin Hcl (C ipro) 500 Mg TABLET 2018-10-19 00:00:00 No 500 Twice A Day [facility] Clindamycin Hcl Clindamycin Hcl 2018-10-19 00:00:00 No 300 Three Times A Day [facility] Famotidine Famotidine 2018-10-19 00:00:00 No 20 Loli ly [facility] Insulin Glargine (Lantus 3ML Pen) 100 Units/1 Ml INJ I nsulin Glargine (Lantus 3ML Pen) 100 Units/1 Ml INJ 2018-10-19 00:00:00 No 25 Daily [facility] [place]-3 Fatty Acids ([place]-3) 1,000 Mg CAPSULE [place]-3 Fatty Acids ([place]-3) 1,000 Mg CAPSULE 2018-10-19 00:00:00 No 1000 Twice A Day [facility] Ondansetron Hcl (Zofran*) 4 Mg TABLET Ondansetron Hcl (Zofran*) 4 Mg TABLET 2018-10-19 00:00:00 No 4 Every 4 Ho urs as needed for Nausea And Vomiting [facility] Sulfamethoxazole/Trimethoprim (Bactrim Ds Tablet) 1 Ea ch TABLET Sulfamethoxazole/Trimethoprim (Bactrim Ds Tablet) 1 Each TABLET 2018-09-16 00:00:00 No 1 Bedtime [facility] Aspirin Aspirin 2016-01-26 00:00:00 No 81 Daily [facility] Cefepime Hcl Cefepime Hcl 2016-01-26 00:00:00 No 1 [facility] Insulin Detemir (Levemir) 100 Unit/1 Ml VIAL Insulin D etemir (Levemir) 100 Unit/1 Ml VIAL 2016-01-26 00:00:00 No 100 [facility] Insulin Glargine (Lantus 3ML Pen) 100 Units/1 Ml INJ I nsulin Glargine (Lantus 3ML Pen) 100 Units/1 Ml INJ 2016-01-26 00:00:00 No 10 Before Supper [facility] Losartan Potassium (Cozaar) 25 Mg TABLET Losartan Pota ssium (Cozaar) 25 Mg TABLET 2016-01-26 00:00:00 No 25 Daily [facility] [place]-3 Fatty Acids ([place]-3) 1,000 Mg CAPSULE [place]-3 Fatty Acids ([place]-3) 1,000 Mg CAPSULE 2016-01-26 00:00:00 No 1000 Daily [facility] Oxycodone Hcl/Acetaminophen (Percocet 5-325 Mg Tablet) 1 Each TABLET Oxycodone Hcl/Acetaminophen (Percocet 5-325 Mg Tablet) 1 Each TABLET 2016-01-26 00:00:00 No 1 Every 6 Hours as needed for Pain [facility] Smz-Tmp Smz-Tmp 2016-01-26 00:00:00 No 400 Daily [facility] Vancomycin Hcl Vancomycin Hcl 2016-01-26 00:00:00 No 1 [facility] Zinc Acetate/Meadowsweet/[place] (Amerigel Wound Dressing Gel) 28.3 Gm GEL..GRAM. Zinc Acetate/[place]weet/[place] (Amerigel Wound Dressing Gel) 28.3 Gm GEL..GRAM. 2016-01-26 00:00:00 No [facility] Vital Signs Vital Name Observation Time Observation Value Comments Source Body Temperature 2020-01-04 11:29:00 98.2 [degF] [facility] Weight 2020-01-02 01:12:00 156.50 [lb_av] [facility] BMI (Body Mass Index) 2020-01-02 01:12:00 26.0 kg/m2 [facility] Procedures Procedure Date / Time Performed Performing Clinician Concepción silva CT of abdomen and pelvis without contrast 2019-12-28 00:00:00 [facility] Computed tomography of chest without contrast 2019-12-28 00:00:0 0 [facility] DETACHMENT AT RIGHT LOWER LEG, MID, OPEN APPROACH 2019-10-25 00: 00:00 [facility] INSERTION OF INFUSION DEV INTO SUP VENA CAVA, PERC APPROACH 2019-10-22 00:00:00 [facility] FLUOROSCOPY OF AORTA, BI LE ART USING L OSM CONTRAST 2019-10-22 00:00:00 [facility] Ultrasound, renal 2019-10-20 00:00:00 [facility] Plan of Care Planned Activity Planned Date Details Comments Source Instructions Urinary Tract Infection - Men [facility] Encounters Start Date/Time End Date/Time Encounter Type Admission Type Attendi [facility] Facility Care Department Encounter ID Source 2019-12-28 16:56:00 2020-01-04 13:46:00 Discharged Inpatient 1 DIOGENES [facility] [id number] [facility] 2019-10-17 11:48:00 2019-11-03 01:00:00 Discharged Inpatient 1 DIOGEN[facility] [id number] [facility] 2018-08-31 21:43:00 2018-09-16 12:25:00 Discharged Inpatient 1 DIOGENES [facility] [id number] [facility] Results Test Description Test Time Test Comments Results Result Comments Source Capillary blood glucose measurement by glucometer (mas s/volume) 2020-01-04 10:16:00 Test Item Bedside Glucose (test code = 78958-6) 86 70-120 Meter ID: [id number] leukocytes automated count (number/volume)2020-01-01 12:25:00* Test Item Value Reference Range Interpretation Comments White Blood Count (test code = 6690-2) 6.34 4.8-10.8 [facility] erythrocytes automated count (number/volume)2020-01-01 12:25:00* Test Item Value Reference Range Interpretation Comments Red Blood Count (test code = 789-8) 3.82 4.3-5.7 [facility] hemoglobin measurement (moles/volume)2020-01-01 12:25:00* Test Item Value Reference Range Interpretation Comments Hemoglobin (test code = 81242-6) 9.7 14.0-18.0 [facility] blood hematocrit (volume fraction)2020-01-01 12:25:00* Test Item Value Reference Range Interpretation Comments Hematocrit (test code = 4544-3) 31.5 38.2-49.6 [facility] erythrocyte mean corpuscular [id number] 12:25:00* Test Item Value Reference Range Interpretation Comments Mean Corpuscular Volume (test code = 787-2) 82.5 81-99 [facility] erythrocyte mean corpuscular hemoglobin (mass per erythrocyte)2020-01-01 12:25:00* Test Item Value Reference Range Interpretation Comments Mean Corpuscular Hemoglobin (test code = 785-6) 25.4 28-32 [facility] erythrocyte mean corpuscular hemoglobin concentration measurement (mass/volume)2020-01-01 12:25:00* Test Item Value Reference Range Interpretation Comments Mean Corpuscular Hemoglobin Concent (test code = 786-4) 30.8 31-35 [facility] MarshallRDW MjpIl-[id number] 12:25:00* Test Item Value Reference Range Interpretation Comments Red Cell Distribution Width (test code = 91550-3) 18.1 11.7 -14.4 [facility] platelet count (count/volume)2020-01-01 12:25:00* Test Item Value Reference Range Interpretation Comments Platelet Count (test code = 777-3) 211 140-360 [facility] Marshall[facility] blood segmented neutrophil count as percentage of total lvxdkieolv0918-73-70 12:25:00* Test Item Value Reference Range Interpretation Comments Neutrophils (%) (Auto) (test code = 45726-1) 73.7 38.7-80.0 [facility] lymphocyte count as percentage ot total vymomepvkx1810-07-54 12:25:00* Test Item Value Reference Range Interpretation Comments Lymphocytes (%) (Auto) (test code = 736-9) 11.8 18.0-39.1 [facility] blood monocyte count as percentage of total spzncwjwcg4269-73-00 12:25:00* Test Item Value Reference Range Interpretation Comments Monocytes (%) (Auto) (test code = 5905-5) 11.7 4.4-11.3 [facility] eosinophil count as percentage of total rqxowkbnxh5145-85-30 12:25:00* Test Item Value Reference Range Interpretation Comments Eosinophils (%) (Auto) (test code = 713-8) 2.2 0.0-6.0 [facility] basophil count as percentage of total muqumiudfl6838-59-87 12:25:00* Test Item Value Reference Range Interpretation Comments Basophils (%) (Auto) (test code = 706-2) 0.3 0.0-1.0 [facility] MarshallFluoroscopic procedure less than one hour sygiikhi8454-57-10 12:25:00* Test Item Value Reference Range Interpretation Comments IM GRANULOCYTES % (test code = IM GRANULOCYTES %) 0.3 0.0- 1.0 [facility] neutrophil count 2020-01-01 12:25:00* Test Item Value Reference Range Interpretation Comments Neutrophils # (Auto) (test code = 751-8) 4.7 2.1-6.9 [facility] lymphocytes count (number/volume) 2020-01-01 12:25:00* Test Item Value Reference Range Interpretation Comments Lymphocytes # (Auto) (test code = 68951-1) 0.8 1.0-3.2 [facility] monocytes automated count (number/volume)2020-01-01 12:25:00* Test Item Value Reference Range Interpretation Comments Monocytes # (Auto) (test code = 742-7) 0.7 0.2-0.8 [facility] blood eosinophil count 2020-01-01 12:25:00* Test Item Value Reference Range Interpretation Comments Eosinophils # (Auto) (test code = 711-2) 0.1 0.0-0.4 [facility] blood basophil count (count/volume)2020-01-01 12:25:00* Test Item Value Reference Range Interpretation Comments Basophils # (Auto) (test code = 704-7) 0.0 0.0-0.1 [facility] MarshallFluoroscopic procedure less than one hour [id number] 12:25:00* Test Item Value Reference Range Interpretation Comments Absolute Immature Granulocyte (auto (rodrick t code = Absolute Immature Granulocyte (auto) 0.02 0-0.1 [facility] sodium measurement (moles/volume)2020-01-01 12:25:00* Test Item Value Reference Range Interpretation Comments Sodium Level (test code = 2951-2) 141 136-145 [facility] potassium measurement (moles/volume)2020-01-01 12:25:00* Test Item Value Reference Range Interpretation Comments Potassium Level (test code = 2823-3) 3.6 3.5-5.1 [facility] chloride measurement (moles/volume)2020-01-01 12:25:00* Test Item Value Reference Range Interpretation Comments Chloride Level (test code = 2075-0) 108 98-107 [facility] or plasma carbon dioxide, total measurement (moles/volume)2020-01-01 12:25:00* Test Item Value Reference Range Interpretation Comments Carbon Dioxide Level (test code = 2028-9) 24 22-29 [facility] or plasma anion [id number] 12:25:00* Test Item Value Reference Range Interpretation Comments Anion Gap (test code = 60991-5) 12.6 8-16 [facility] plasma urea nitrogen measurement (mass/volume)2020-01-01 12:25:00* Test Item Value Reference Range Interpretation Comments Blood Urea Nitrogen (test code = 3094-0) 15 7-26 [facility] or plasma creatinine measurement (mass/volume)2020-01-01 12:25:00* Test Item Value Reference Range Interpretation Comments Creatinine (test code = 2160-0) 0.88 0.72-1.25 [facility] or plasma urea nitrogen/creatinine mass gddqb3678-38-14 12:25:00* Test Item Value Reference Range Interpretation Comments BUN/Creatinine Ratio (test code = 3097-3) 17 6-25 [facility]ated glomerular filtration rate (GFR) lhdayukbgiavf4760-10-13 12:25:00* Test Item Value Reference Range Interpretation Comments Estimat Glomerular Filtration Rate (test code = 919689145) > 60 >60 Ranges were taken from the National Kidney Disease Education Program and the [facility] Foundation literature.Reference ranges:60 or greater: Hhebqy58-83 ( for 3 consecutive months): Chronic kidney disease 15 or less: Kidney failureCHRISTUS Good Shepherd Medical Center – MarshallGlucose yvwjmjmmtwm6313-24-81 12:25:00* Test Item Value Reference Range Interpretation Comments Glucose Level (test code = TUW3692) 69 74-118 [facility]ere[facility] or plasma calcium measurement (mass/volume)2020-01-01 12:25:00* Test Item Value Reference Range Interpretation Comments Calcium Level (test code = 62381-0) 8.7 8.4-10.2 [facility] MarshallFluoroscopic procedure less than one hour efidqqmi7748-18-13 06:00:00* Test Item Value Reference Range Interpretation Comments Hemoglobin A1c Percent (test code = Hemoglobin A1c Percent) 7.6 4.0-7.0 [facility] MarshallFluoroscopic procedure less than one hour ouradfsp7021-04-76 06:00:00* Test Item Value Reference Range Interpretation Comments Lactic Acid Level (test code = Lactic Acid Level) 1.3 0.5- 2.0 [facility]rum or plasma thyrotropin measurement by detection limit <= 0.005 miu/l (units/volume)2019-12-29 06:00:00* Test Item Value Reference Range Interpretation Comments Thyroid Stimulating Hormone (TSH) (test code = 32597-6) 0.821 0.350-4.940 [facility] qxhdxjq7003-96-98 06:00:00* Test Item Value Reference Range Interpretation Comments Blood Culture (test code = 85356132) NO GROWTH AFTER 5 DAYS, FINAL REPORT [facility]/PELVIS [id number] 01:31:00 [facility] [address] [place] [address] Patient Name: LISA GLASER MR #: [id number] : 1940 Age/Sex: 79/M Req #: [id number] Adm Physician: ED SHETTY MD Ordered by: ED SHETTY MD Repo rt #: [id number] Location: [facility] Room/Be d: 292-1 Procedure: [id number] CT/CT ABDOMEN/P RONEL WO Exam Date: 12/28/19 Exam Time: 2359 REPORT STATUS: Signed EXAM: CT Chest, A bdomen and Pelvis WITHOUT contrast INDICATION: Fever, urinary tract infectio n COMPARISON: Chest CT 09/02/2018. TECHNIQUE: Chest, abdomen and pelvis were scanned utilizing a multidetector helical scanner from the lung apex to t he pubic symphysis without administration of IV contrast. Absence of intraveno us contrast decreases sensitivity for detection of focal lesions and vascular pathology. Coronal and sagittal reformations were obtained. Routine protocol w as performed. IV CONTRAST: None ORAL CONTRAST: None COMPLICATIONS: None RADIATION DOSE: Total DLP: 679 mGy*cm Estimated effective dose: (DLP x 0.015 x size factor) mSv CTDIvol has be en reviewed. It is below the limits set by the Radiation Protocol Committee (R PC). Dose modulation, iterative reconstruction, and/or weight based adjus tment of the mA/kV was utilized to reduce the radiation dose to as low as reas onably achievable. FINDINGS: Lines/tubes: None. Lungs/airways: Bibasilar atelectasis. Patent airways. Pleura:Small/moderate left and smal l right pleural effusions. Cardiomediastinum: Calcifications of the aorta and major branches including the coronary arteries. Normal thyroid. Normal hea rt size. Aortic valve calcifications. Small/moderate pericardial effusion. Mil d circumferential wall thickening of the mid to distal esophagus. Calcified me diastinal lymph nodes. Liver: Normal. Gallbladder: Normal. Spleen : Normal. Pancreas: Normal. Kidneys: Atrophic. 4.7 cm simple right maricel al cyst. Transplant kidney in the right pelvis with perinephric fat stranding. Adrenals: Normal. Gastrointestinal: Moderate volume of stool in the c olon and rectum. Colonic diverticuli. Normal appendix. Pelvis: Circumfer ential urinary bladder wall thickening and perivesicular fat stranding. V essels: Vascular calcifications. Peritoneum/retroperitoneum: Right lower re troperitoneal fat stranding. Lymph nodes: No suspicious adenopathy. Jarocho alex: Osseous demineralization. Degenerative changes. Soft Tissues: Small bi lateral fat-containing inguinal hernias. IMPRESSION: 1. Findings compatible with volume overload with small/moderate left and small right pleur al effusions and small/moderate pericardial effusion. 2. 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 3. Atrophic [place] kidneys. Perinephric fat stranding about the transplanted right pelvic kidney, can be due to renal insufficiency or pyelonephritis. 4 . Mild urinary bladder wall thickening can be due to cystitis and/or chronic changes of partial bladder outlet obstruction from prostatomegaly. 5. Mode rate volume of stool in the colon correlate for constipation. 6. Mild circ umferential wall thickening of the mid to distal esophagus can be due to esoph agitis. Signed by: Michael Vicente DO on 12/29/2019 1:45 AM Dictated By: MICHAEL VICENTE DO 4 COPY TO: ED SHETTY MD CT CHEST [id number] 01:31:00 [place] [address] Patient Name: LISA GLASER MR #: [id number] : 1940 Age/Sex: 79/M Req #: [id number] Adm Physician: ED SHETTY MD Ordered by: ED SHETTY MD Report #: [id number] Location: [facility] Room/Bed: [facility] Procedure: [id number] CT/CT CHEST WO Exam Date: 12/28/19 Exam Time: 2359 REPORT STATUS: Signed EXAM: CT Chest, Abdomen an d Pelvis WITHOUT contrast INDICATION: Fever, urinary tract infection COMPARISON: Chest CT 09/02/2018. TECHNIQUE: Chest, abdomen and pelvis were scan melanie utilizing a multidetector helical scanner from the lung apex to the pubic symphysis without administration of IV contrast. Absence of intravenous contra st decreases sensitivity for detection of focal lesions and vascular pathology . Coronal and sagittal reformations were obtained. Routine protocol was perfor med. IV CONTRAST: None ORAL CONTRAST: None COMPL ICATIONS: None RADIATION DOSE: Total DLP: 679 mGy*cm Estimate d effective dose: (DLP x 0.015 x size factor) mSv CTDIvol has been review ed. It is below the limits set by the Radiation Protocol Committee (RPC). Dose modulation, iterative reconstruction, and/or weight based adjustment o f the mA/kV was utilized to reduce the radiation dose to as low as reasonably achievable. FINDINGS: Lines/tubes: None. Lungs/airways: Bibasila r atelectasis. Patent airways. Pleura:Small/moderate left and small right p leural effusions. Cardiomediastinum: Calcifications of the aorta and major branches including the coronary arteries. Normal thyroid. Normal heart size. Aortic valve calcifications. Small/moderate pericardial effusion. Mild circumf erential wall thickening of the mid to distal esophagus. Calcified mediastinal lymph nodes. Liver: Normal. Gallbladder: Normal. Spleen: Normal. Pancreas: Normal. Kidneys: Atrophic. 4.7 cm simple right renal cyst. Transplant kidney in the right pelvis with perinephric fat stranding. Adr enals: Normal. Gastrointestinal: Moderate volume of stool in the colon and rectum. Colonic diverticuli. Normal appendix. Pelvis: Circumferential ur inary bladder wall thickening and perivesicular fat stranding. Vessels: V ascular calcifications. Peritoneum/retroperitoneum: Right lower retroperito wally fat stranding. Lymph nodes: No suspicious adenopathy. Bones: Osse ous demineralization. Degenerative changes. Soft Tissues: Small bilateral f at-containing inguinal hernias. IMPRESSION: 1. Findings compatibl e with volume overload with small/moderate left and small right pleural effusi ons and small/moderate pericardial effusion. 2. Triple vessel coronary art sravanthi calcific atherosclerosis and calcific aortic valve disease. 3. Atrop hic [place] kidneys. Perinephric fat stranding about the transplanted right pel abilio kidney, can be due to renal insufficiency or pyelonephritis. 4. Mild u rinary bladder wall thickening can be due to cystitis and/or chronic changes o f partial bladder outlet obstruction from prostatomegaly. 5. Moderate volu me of stool in the colon correlate for constipation. 6. Mild circumferenti al wall thickening of the mid to distal esophagus can be due to esophagitis. Signed by: Michael Vicente DO on 12/29/2019 1:45 AM Dictated By: AUREA VICENTE DO 4 Transcribed By: DEMOND on 12/29/19144 COPY TO: ED SHETTY MD Bacterial blood [id number] 23:40:00* Test Item Value Reference Range Interpretation Comments Blood Culture (test code = 600-7) KLEBSIELLA PNEUMONIAE-ESBL [facility] less than one hour [id number] 17:17:00* Test Item Value Reference Range Interpretation Comments Coronavirus (PCR) (test code = Coronavirus (PCR)) NOT DETECTED NOTD ETECTED SARS-COV-2 (COVID19), HIGHRISK, RT-PCRNegative results do not preclude SARS-CoV- 2 infection and should not be used as the sole basis for patient management deci sions. Negative results must be combined with clinical observations, patient his tory, and epidemiological information. Optimum specimen types and timing for pea k viral levels during infections caused by SARS-CoV-2 have not been determined. Collection of multiple specimens ot types of specimens may be necessary to detec t virus. Improper specimen collection and handling, sequence variability under p rimers/probes, or organism present below the limit of detection may lead to fals e negative results. Positive and negative predictive values of testing are highl y dependent on prevalance. False negative test results are more likely when prev alence is high.The expected result is negative (not detected).The SARS-CoV-2 rodrick t is intended for the qualitative detection of nucleic acid from SARS-CoV-2 in n asopharyngeal and oropharyngeal swab samples from patients who meet COVID-19 cli nical and or epidemiological criteria. For lower respiratory tract specimens, th e assay is submitted for authoriztion by FDA under an Emergency Use Authorizatio n (EUA). Testing methodology is real time RT-PCR. If received as separate collec tion devices, nasopharygeal and oropharyngeal specimens are combined for analysi s. Additional specimens may be split to a separate accession for analysi and rep orting as this test includes a single unit of service.Test results must be corre lated with clinical presentation and evaluated in the context of other laborator y and epidemiologic data. Test performance can be affected because the epidemiol ogy and clinical spectrum of infection caused by SARS-CoV-2 is not fully known. For example, the optimum types of specimens to collect and when during the cours e of infection these specimens are most likely to contain detectable viral RNA m ay not be known.This test has not been Food and Drug Administration (FDA) cleare d or approved and has been authorized by FDA under an Emergency Use Authorizatio n (EUA). The test is only authorized for the duration of the declaration that ci rcumstances exist justifying the authorization of emergency use of in vitro diag nostic tests for detection and/or diagnosis of SARS-CoV-2 under section 564(b) o f the Act, 21 U.S.C. section 360bbb-3(b)(1), unless the authorization is termina sendy or revoked sooner. [facility] are certified under the C linical Laboratory Improvement Amendments of 1988 (CLIA), 42 U.S.C. section 263a , to perform high complexity tests.Testing performed by [facility] [address] [phone] Director: Torrey Giron M.D.CLIA # [id number] MarshallUrine color [id number] 14:50:00* Test Item Value Reference Range Interpretation Comments Urine Color (test code = 5778-6) YELLOW YELLOW [facility] [id number] 14:50:00* Test Item Value Reference Range Interpretation Comments Urine Clarity (test code = 11793-9) HAZY CLEAR [facility] by Test strip 2019-12-28 14:50:00* Test Item Value Reference Range Interpretation Comments Urine Specific [place] (test code = 5811-5) 1.015 1.010-1.02 5 [facility] Marshall[facility] pH measurement by automated test [id number] 14:50:00* Test Item Value Reference Range Interpretation Comments Urine pH (test code = 15383-9) 5.5 5-7 [facility] leukocyte esterase detection by [id number] 14:50:00* Test Item Value Reference Range Interpretation Comments Urine Leukocyte Esterase (test code = 5799-2) MODERATE NEGATIVE [facility] nitrite [id number] 14:50:00* Test Item Value Reference Range Interpretation Comments Urine Nitrite (test code = 24042-8) NEGATIVE NEGATIVE [facility] protein measurement by test strip (mass/volume)2019-12-28 14:50:00* Test Item Value Reference Range Interpretation Comments Urine Protein (test code = 5804-0) 2+ NEGATIVE [facility] glucose [id number] 14:50:00* Test Item Value Reference Range Interpretation Comments Urine Glucose (UA) (test code = 2349-9) 2+ NEGATIVE [facility] Marshall[facility] ketones detection by automated test [id number] 14:50:00* Test Item Value Reference Range Interpretation Comments Urine Ketones (test code = 69947-5) NEGATIVE NEGATIVE [facility] Marshall[facility] urobilinogen measurement by test strip (mass/volume)2019-12-28 14:50:00* Test Item Value Reference Range Interpretation Comments Urine Urobilinogen (test code = 32592-9) 0.2 0.2-1 [facility] total bilirubin measurement (mass/volume)2019-12-28 14:50:00* Test Item Value Reference Range Interpretation Comments Urine Bilirubin (test code = 1978-6) NEGATIVE NEGATIVE [facility] erythrocytes [id number] 14:50:00* Test Item Value Reference Range Interpretation Comments Urine Blood (test code = 89356-6) MODERATE NEGATIVE [facility] MarshallAutomated urine sediment leukocyte count by microscopy (number/high power field)2019-12-28 14:50:00* Test Item Value Reference Range Interpretation Comments Urine WBC (test code = 5821-4) >50 0-5 [facility] MarshallErythrocytes detection in urine sediment by light [id number] 14:50:00* Test Item Value Reference Range Interpretation Comments Urine RBC (test code = 33640-7) 6-10 0-5 [facility] MarshallBacteria detection in urine sediment by light [id number] 14:50:00* Test Item Value Reference Range Interpretation Comments Urine Bacteria (test code = 21332-4) MODERATE NONE [facility] MarshallEpithelial cells detection in urine sediment by light [id number] 14:50:00* Test Item Value Reference Range Interpretation Comments Urine Epithelial Cells (test code = 53382-0) NONE NONE [facility] or plasma total bilirubin measurement (mass/volume)2019-12-28 13:15:00* Test Item Value Reference Range Interpretation Comments Total Bilirubin (test code = 1975-2) 0.7 0.2-1.2 [facility] MarshallFluoroscopic procedure less than one hour [id number] 13:15:00* Test Item Value Reference Range Interpretation Comments Aspartate Amino Transf (AST/SGOT) (test code = Aspartate Amino Transf (AST/SGOT)) 13 5-34 [facility] or plasma alanine aminotransferase measurement (enzymatic activity/volume)2019-12-28 13:15:00* Test Item Value Reference Range Interpretation Comments Alanine Aminotransferase (ALT/SGPT) (test code = 1742-6) 13 0-55 [facility] or plasma protein measurement (mass/volume)2019-12-28 13:15:00* Test Item Value Reference Range Interpretation Comments Total Protein (test code = 2885-2) 6.5 6.5-8.1 [facility] or plasma albumin measurement (mass/volume)2019-12-28 13:15:00* Test Item Value Reference Range Interpretation Comments Albumin (test code = 1751-7) 2.5 3.5-5.0 [facility] MarshallPlasma globulin measurement (mass/volume) 2019-12-28 13:15:00* Test Item Value Reference Range Interpretation Comments Globulin (test code = 98454-5) 4.0 2.3-3.5 [facility] or plasma albumin/globulin mass [id number] 13:15:00* Test Item Value Reference Range Interpretation Comments Albumin/Globulin Ratio (test code = 1759-0) 0.6 0.8-2.0 [facility] or plasma alkaline phosphatase measurement (enzymatic activity/volume)2019-12-28 13:15:00* Test Item Value Reference Range Interpretation Comments Alkaline Phosphatase (test code = 6768-6) 124 40-150 [facility] MarshallGLUBED2020-05-04 16:37:00* Test Item Value Reference Range Interpretation Comments GLUBED (test code = GLUBED) 110 mg/dL 74-106 H Performed by certified rolling mill operator helper at [facility] [id number] 11:55:00* Test Item Value Reference Range Interpretation Comments GLUBED (test code = GLUBED) 93 mg/dL 74-106 N Performed by certified rolling mill operator helper at [facility] [id number] 07:31:00* Test Item Value Reference Range Interpretation Comments GLUBED (test code = GLUBED) 104 mg/dL 74-106 N Performed by certified rolling mill operator helper at [facility] BASIC METABOLIC [id number] 07:12:00* Test Item Value Reference Range Interpretation Comments SODIUM (test code = NA) 144 mmol/L 136-145 N POTASSIUM (test code = K) 3.8 mmol/L 3.5-5.1 N CHLORIDE (test code = CL) 112.0 mmol/L 98-107 H CARBON DIOXIDE (test code = CO2) 24.0 mmol/L 21-32 N ANION GAP (test code = GAP) 11.8 10-20 N GLUCOSE (test code = GLU) 120 mg/dL 74-106 H BLOOD UREA NITROGEN (test code = BUN) 13 mg/dL 7-18 N GLOMERULAR FILTRATION RATE (test code = GFR) > 60 mL/min >=60 Estimated GFR by using Modified MDRD formula.Chronic kidney disease is defined as either kidney damageor GFR <60 mL/min/1.73 m2 for >3 months. CREATININE (test code = CREAT) 0.70 mg/dL 0.7-1.3 N BUN/CREATININE RATIO (test code = BUN/CREA) 18.6 10-20 N CALCIUM (test code = CA) 8.5 mg/dL 8.5-10.1 N BASIC METABOLIC [id number] 06:51:00* Test Item Value Reference Range Interpretation Comments SODIUM (test code = NA) 144 mmol/L 136-145 N POTASSIUM (test code = K) 3.8 mmol/L 3.5-5.1 N CHLORIDE (test code = CL) 112.0 mmol/L 98-107 H CARBON DIOXIDE (test code = CO2) mmol/L 21-32 ANION GAP (test code = GAP) 10-20 GLUCOSE (test code = GLU) mg/dL 74-106 BLOOD UREA NITROGEN (test code = BUN) mg/dL 7-18 GLOMERULAR FILTRATION RATE (test code = GFR) mL/min >=60 CREATININE (test code = CREAT) mg/dL 0.7-1.3 BUN/CREATININE RATIO (test code = BUN/CREA) 10-20 CALCIUM (test code = CA) mg/dL 8.5-10.1 CBC W/AUTO [id number] 06:35:00* Test Item Value Reference Range Interpretation Comments WHITE BLOOD CELL (test code = WBC) 5.3 K/mm3 4.5-12.5 N RED BLOOD CELL (test code = RBC) 3.64 mill/mm3 4.0-5.8 L HEMOGLOBIN (test code = HGB) 9.8 gram/dL 13.0-17.5 L HEMATOCRIT (test code = HCT) 30.1 % 42.0-52.0 L MEAN CELL VOLUME (test code = MCV) 82.7 fL 80-98 N MEAN CELL HGB (test code = MCH) 26.9 picogram 27.0-33.0 L MEAN CELL HGB CONCETRATION (test code = MCHC) 32.6 gram/dL 33.0-36. 0 L RED CELL DISTRIBUTION WIDTH (test code = RDW) 15.3 % 11.6-16. 2 N RED CELL DISTRIBUTION WIDTH SD (test code = RDW-SD) 45.6 fL 37 .0-51.0 N PLATELET COUNT (test code = PLT) 319 K/mm3 150-450 N MEAN PLATELET VOLUME (test code = MPV) 9.1 fL 6.7-11.0 N NEUTROPHIL % (test code = NT%) 60.0 % 39.0-69.0 N IMMATURE GRANULOCYTE % (test code = IG%) 0.6 % 0.0-5.0 N LYMPHOCYTE % (test code = LY%) 9.8 % 25.0-55.0 L MONOCYTE % (test code = MO%) 25.0 % 0.0-10.0 H EOSINOPHIL % (test code = EO%) 3.8 % 0.0-5.0 N BASOPHIL % (test code = BA%) 0.8 % 0.0-1.0 N NUCLEATED RBC % (test code = NRBC%) 0.0 % 0-0 N NEUTROPHIL # (test code = NT#) 3.17 K/mm3 1.8-7.7 N IMMATURE GRANULOCYTE # (test code = IG#) 0.03 x10 3/uL 0-0.03 N LYMPHOCYTE # (test code = LY#) 0.52 K/mm3 1.0-5.0 L MONOCYTE # (test code = MO#) 1.32 K/mm3 0-0.8 H EOSINOPHIL # (test code = EO#) 0.20 K/mm3 0.0-0.5 N BASOPHIL # (test code = BA#) 0.04 K/mm3 0.0-0.2 N NUCLEATED RBC # (test code = NRBC#) 0.00 K/mm3 0.0-0.1 N MANUAL DIFF REQUIRED (test code = MDIFF) NO [id number] 20:44:00* Test Item Value Reference Range Interpretation Comments GLUBED (test code = GLUBED) 212 mg/dL 74-106 H Performed by certified rolling mill operator helper at [facility] [id number] 16:44:00* Test Item Value Reference Range Interpretation Comments GLUBED (test code = GLUBED) 220 mg/dL 74-106 H Performed by certified rolling mill operator helper at [facility] [id number] 12:03:00* Test Item Value Reference Range Interpretation Comments GLUBED (test code = GLUBED) 115 mg/dL 74-106 H Performed by certified rolling mill operator helper at [facility] [id number] 07:50:00* Test Item Value Reference Range Interpretation Comments GLUBED (test code = GLUBED) 60 mg/dL 74-106 L Performed by certified rolling mill operator helper at [facility] [id number] 20:18:00* Test Item Value Reference Range Interpretation Comments GLUBED (test code = GLUBED) 247 mg/dL 74-106 H Performed by certified rolling mill operator helper at [facility] - XR CHEST 1 [id number] 19:22:00 FAX: Jose Alejandro Kirk MD [phone] [place]: B St: [facility] FAX: Curt Baig Fo Name: LISA GLASER [facility] : 1940 Age/S: 79/M [address] Unit #: [id number] Loc: V.3087 [place] [address] Phys: Curt Ag DO Acct: [id number] Dis Date: Status: ADM IN PHONE #: [phone] Exam Date: 11/10/2019 1845 FAX #: [phone] Reason: SOB/ LOW 02 EXAMS: CPT CODE: [id number] XR CHEST 1 V 22583 HISTORY: Shortness of breath. COMPARISON: None available. Location: TH. Left lower lobe segmental atelectasis with small effusion. Patchy infiltrate. Right lung is clear. Cardiomegaly. IMPRESSION: Patchy left lower lobe infiltrate with small effusion and segmental atelectasis. E lectronically Signed by Lawrence Thorpe on 11/10/2019 at 1922 Reported and signed by: Talat Thorpe M.D. CC: Jose Alejandro Helm; Curt Ag DO Technologist: BENSON GRAY, RT(R); JOLENE HURTADO RT(R) Trnscrd Date/Time/By: 11/10/2019 (0 198) : By: [email or web address] Orig Print D/T: S: 11/10/2019 (1924) PAGE 1 Signed Report [id number] 16:48:00* Test Item Value Reference Range Interpretation Comments GLUBED (test code = GLUBED) 239 mg/dL 74-106 H Performed by certified rolling mill operator helper at [facility] [id number] 11:18:00* Test Item Value Reference Range Interpretation Comments GLUBED (test code = GLUBED) 199 mg/dL 74-106 H Performed by certified rolling mill operator helper at [facility] [id number] 08:09:00* Test Item Value Reference Range Interpretation Comments GLUBED (test code = GLUBED) 246 mg/dL 74-106 H Performed by certified rolling mill operator helper at [facility] BASIC METABOLIC [id number] 07:11:00* Test Item Value Reference Range Interpretation Comments SODIUM (test code = NA) 136 mmol/L 136-145 N POTASSIUM (test code = K) 4.0 mmol/L 3.5-5.1 N CHLORIDE (test code = CL) 104.0 mmol/L 98-107 N CARBON DIOXIDE (test code = CO2) 20.0 mmol/L 21-32 L ANION GAP (test code = GAP) 16.0 10-20 N GLUCOSE (test code = GLU) 249 mg/dL 74-106 H BLOOD UREA NITROGEN (test code = BUN) 23 mg/dL 7-18 H GLOMERULAR FILTRATION RATE (test code = GFR) > 60 mL/min >=60 Estimated GFR by using Modified MDRD formula.Chronic kidney disease is defined as either kidney damageor GFR <60 mL/min/1.73 m2 for >3 months. CREATININE (test code = CREAT) 1.00 mg/dL 0.7-1.3 N BUN/CREATININE RATIO (test code = BUN/CREA) 23.0 10-20 H CALCIUM (test code = CA) 8.1 mg/dL 8.5-10.1 L BASIC METABOLIC [id number] 07:03:00* Test Item Value Reference Range Interpretation Comments SODIUM (test code = NA) 136 mmol/L 136-145 N POTASSIUM (test code = K) 4.0 mmol/L 3.5-5.1 N CHLORIDE (test code = CL) 104.0 mmol/L 98-107 N CARBON DIOXIDE (test code = CO2) mmol/L 21-32 ANION GAP (test code = GAP) 10-20 GLUCOSE (test code = GLU) mg/dL 74-106 BLOOD UREA NITROGEN (test code = BUN) mg/dL 7-18 GLOMERULAR FILTRATION RATE (test code = GFR) mL/min >=60 CREATININE (test code = CREAT) mg/dL 0.7-1.3 BUN/CREATININE RATIO (test code = BUN/CREA) 10-20 CALCIUM (test code = CA) mg/dL 8.5-10.1 CBC W/AUTO [id number] 06:25:00* Test Item Value Reference Range Interpretation Comments WHITE BLOOD CELL (test code = WBC) 9.8 K/mm3 4.5-12.5 N RED BLOOD CELL (test code = RBC) 3.60 mill/mm3 4.0-5.8 L HEMOGLOBIN (test code = HGB) 9.6 gram/dL 13.0-17.5 L HEMATOCRIT (test code = HCT) 29.2 % 42.0-52.0 L MEAN CELL VOLUME (test code = MCV) 81.1 fL 80-98 N MEAN CELL HGB (test code = MCH) 26.7 picogram 27.0-33.0 L MEAN CELL HGB CONCETRATION (test code = MCHC) 32.9 gram/dL 33.0-36. 0 L RED CELL DISTRIBUTION WIDTH (test code = RDW) 14.9 % 11.6-16. 2 N RED CELL DISTRIBUTION WIDTH SD (test code = RDW-SD) 43.8 fL 37 .0-51.0 N PLATELET COUNT (test code = PLT) 278 K/mm3 150-450 N MEAN PLATELET VOLUME (test code = MPV) 9.3 fL 6.7-11.0 N NEUTROPHIL % (test code = NT%) 77.4 % 39.0-69.0 H IMMATURE GRANULOCYTE % (test code = IG%) 0.5 % 0.0-5.0 N LYMPHOCYTE % (test code = LY%) 5.9 % 25.0-55.0 L MONOCYTE % (test code = MO%) 15.7 % 0.0-10.0 H EOSINOPHIL % (test code = EO%) 0.3 % 0.0-5.0 N BASOPHIL % (test code = BA%) 0.2 % 0.0-1.0 N NUCLEATED RBC % (test code = NRBC%) 0.0 % 0-0 N NEUTROPHIL # (test code = NT#) 7.58 K/mm3 1.8-7.7 N IMMATURE GRANULOCYTE # (test code = IG#) 0.05 x10 3/uL 0-0.03 H LYMPHOCYTE # (test code = LY#) 0.58 K/mm3 1.0-5.0 L MONOCYTE # (test code = MO#) 1.54 K/mm3 0-0.8 H EOSINOPHIL # (test code = EO#) 0.03 K/mm3 0.0-0.5 N BASOPHIL # (test code = BA#) 0.02 K/mm3 0.0-0.2 N NUCLEATED RBC # (test code = NRBC#) 0.00 K/mm3 0.0-0.1 N MANUAL DIFF REQUIRED (test code = MDIFF) NO [id number] 21:24:00* Test Item Value Reference Range Interpretation Comments GLUBED (test code = GLUBED) 255 mg/dL 74-106 H Performed by certified rolling mill operator helper at [facility] [id number] 16:27:00* Test Item Value Reference Range Interpretation Comments GLUBED (test code = GLUBED) 226 mg/dL 74-106 H Performed by certified rolling mill operator helper at [facility] [id number] 11:23:00* Test Item Value Reference Range Interpretation Comments GLUBED (test code = GLUBED) 226 mg/dL 74-106 H Performed by certified rolling mill operator helper at [facility] [id number] 08:42:00* Test Item Value Reference Range Interpretation Comments GLUBED (test code = GLUBED) 226 mg/dL 74-106 H Performed by certified rolling mill operator helper at [facility] CBC W/AUTO [id number] 05:56:00* Test Item Value Reference Range Interpretation Comments WHITE BLOOD CELL (test code = WBC) 14.8 K/mm3 4.5-12.5 H RED BLOOD CELL (test code = RBC) 3.44 mill/mm3 4.0-5.8 L HEMOGLOBIN (test code = HGB) 9.3 gram/dL 13.0-17.5 L HEMATOCRIT (test code = HCT) 29.0 % 42.0-52.0 L MEAN CELL VOLUME (test code = MCV) 84.3 fL 80-98 N MEAN CELL HGB (test code = MCH) 27.0 picogram 27.0-33.0 N MEAN CELL HGB CONCETRATION (test code = MCHC) 32.1 gram/dL 33.0-36. 0 L RED CELL DISTRIBUTION WIDTH (test code = RDW) 15.0 % 11.6-16. 2 N RED CELL DISTRIBUTION WIDTH SD (test code = RDW-SD) 45.3 fL 37 .0-51.0 N PLATELET COUNT (test code = PLT) 287 K/mm3 150-450 N MEAN PLATELET VOLUME (test code = MPV) 9.2 fL 6.7-11.0 N NEUTROPHIL % (test code = NT%) 85.4 % 39.0-69.0 H IMMATURE GRANULOCYTE % (test code = IG%) 0.5 % 0.0-5.0 N LYMPHOCYTE % (test code = LY%) 3.7 % 25.0-55.0 L MONOCYTE % (test code = MO%) 10.3 % 0.0-10.0 H EOSINOPHIL % (test code = EO%) 0.0 % 0.0-5.0 N BASOPHIL % (test code = BA%) 0.1 % 0.0-1.0 N NUCLEATED RBC % (test code = NRBC%) 0.0 % 0-0 N NEUTROPHIL # (test code = NT#) 12.63 K/mm3 1.8-7.7 H IMMATURE GRANULOCYTE # (test code = IG#) 0.08 x10 3/uL 0-0.03 H LYMPHOCYTE # (test code = LY#) 0.55 K/mm3 1.0-5.0 L MONOCYTE # (test code = MO#) 1.53 K/mm3 0-0.8 H EOSINOPHIL # (test code = EO#) 0.00 K/mm3 0.0-0.5 N BASOPHIL # (test code = BA#) 0.02 K/mm3 0.0-0.2 N NUCLEATED RBC # (test code = NRBC#) 0.00 K/mm3 0.0-0.1 N MANUAL DIFF REQUIRED (test code = MDIFF) NO [id number] 20:20:00* Test Item Value Reference Range Interpretation Comments GLUBED (test code = GLUBED) 239 mg/dL 74-106 H Performed by certified rolling mill operator helper at [facility] BASIC METABOLIC [id number] 16:40:00* Test Item Value Reference Range Interpretation Comments SODIUM (test code = NA) 137 mmol/L 136-145 N POTASSIUM (test code = K) 4.8 mmol/L 3.5-5.1 N CHLORIDE (test code = CL) 104.0 mmol/L 98-107 N CARBON DIOXIDE (test code = CO2) 22.0 mmol/L 21-32 N ANION GAP (test code = GAP) 15.8 10-20 N GLUCOSE (test code = GLU) 160 mg/dL 74-106 H BLOOD UREA NITROGEN (test code = BUN) 20 mg/dL 7-18 H GLOMERULAR FILTRATION RATE (test code = GFR) 58 mL/min >=60 Estimated GFR by using Modified MDRD formula.Chronic kidney disease is defined as either kidney damageor GFR <60 mL/min/1.73 m2 for >3 months. CREATININE (test code = CREAT) 1.20 mg/dL 0.7-1.3 N BUN/CREATININE RATIO (test code = BUN/CREA) 16.7 10-20 N CALCIUM (test code = CA) 8.1 mg/dL 8.5-10.1 L BASIC METABOLIC [id number] 16:35:00* Test Item Value Reference Range Interpretation Comments SODIUM (test code = NA) 137 mmol/L 136-145 N POTASSIUM (test code = K) 4.8 mmol/L 3.5-5.1 N CHLORIDE (test code = CL) 104.0 mmol/L 98-107 N CARBON DIOXIDE (test code = CO2) mmol/L 21-32 ANION GAP (test code = GAP) 10-20 GLUCOSE (test code = GLU) mg/dL 74-106 BLOOD UREA NITROGEN (test code = BUN) mg/dL 7-18 GLOMERULAR FILTRATION RATE (test code = GFR) mL/min >=60 CREATININE (test code = CREAT) mg/dL 0.7-1.3 BUN/CREATININE RATIO (test code = BUN/CREA) 10-20 CALCIUM (test code = CA) mg/dL 8.5-10.1 CBC W/AUTO [id number] 16:29:00* Test Item Value Reference Range Interpretation Comments WHITE BLOOD CELL (test code = WBC) 18.1 K/mm3 4.5-12.5 H RED BLOOD CELL (test code = RBC) 3.68 mill/mm3 4.0-5.8 L HEMOGLOBIN (test code = HGB) 10.0 gram/dL 13.0-17.5 L HEMATOCRIT (test code = HCT) 31.5 % 42.0-52.0 L MEAN CELL VOLUME (test code = MCV) 85.6 fL 80-98 N MEAN CELL HGB (test code = MCH) 27.2 picogram 27.0-33.0 N MEAN CELL HGB CONCETRATION (test code = MCHC) 31.7 gram/dL 33.0-36. 0 L RED CELL DISTRIBUTION WIDTH (test code = RDW) 14.9 % 11.6-16. 2 N RED CELL DISTRIBUTION WIDTH SD (test code = RDW-SD) 45.8 fL 37 .0-51.0 N PLATELET COUNT (test code = PLT) 292 K/mm3 150-450 N RESULT VERIFIED BY REPEAT ANALYSIS MEAN PLATELET VOLUME (test code = MPV) 9.2 fL 6.7-11.0 N NEUTROPHIL % (test code = NT%) 84.0 % 39.0-69.0 H IMMATURE GRANULOCYTE % (test code = IG%) 0.6 % 0.0-5.0 N LYMPHOCYTE % (test code = LY%) 3.9 % 25.0-55.0 L MONOCYTE % (test code = MO%) 11.1 % 0.0-10.0 H EOSINOPHIL % (test code = EO%) 0.1 % 0.0-5.0 N BASOPHIL % (test code = BA%) 0.3 % 0.0-1.0 N NUCLEATED RBC % (test code = NRBC%) 0.0 % 0-0 N NEUTROPHIL # (test code = NT#) 15.21 K/mm3 1.8-7.7 H IMMATURE GRANULOCYTE # (test code = IG#) 0.10 x10 3/uL 0-0.03 H LYMPHOCYTE # (test code = LY#) 0.71 K/mm3 1.0-5.0 L MONOCYTE # (test code = MO#) 2.00 K/mm3 0-0.8 H EOSINOPHIL # (test code = EO#) 0.01 K/mm3 0.0-0.5 N BASOPHIL # (test code = BA#) 0.05 K/mm3 0.0-0.2 N NUCLEATED RBC # (test code = NRBC#) 0.00 K/mm3 0.0-0.1 N MANUAL DIFF REQUIRED (test code = MDIFF) NO [id number] 16:10:00* Test Item Value Reference Range Interpretation Comments GLUBED (test code = GLUBED) 157 mg/dL 74-106 H Performed by certified rolling mill operator helper at [facility] URINALYSIS [id number] 15:52:00* Test Item Value Reference Range Interpretation Comments UA COLOR (test code = COLU) YELLOW YELLOW UA APPEARANCE (test code = APPU) Cloudy CLEAR A UA GLUCOSE DIPSTICK (test code = DGLUU) 30 (Trace) mg/dL NEGATIVE A UA BILIRUBIN DIPSTICK (test code = BILU) NEGATIVE mg/dL NEGATIVE UA KETONE DIPSTICK (test code = KETU) 20 (1+) mg/dL NEGATIVE A UA SPECIFIC GRAVITY (test code = SGU) 1.019 1.001-1.035 UA BLOOD DIPSTICK (test code = SITA) 0.2 mg/dL (2+) mg/dL NEGATIVE A UA PH DIPSTICK (test code = BAO) 5.5 5.0-8.0 UA PROTEIN DIPSTICK (test code = PROU) 100 (2+) mg/dL NEGATIVE A UA UROBILINIOGEN DIPSTICK (test code = URO) Normal mg/dL NEGATIVE UA NITRITE DIPSTICK (test code = POPPY) NEGATIVE NEGATIVE UA LEUKOCYTE ESTERASE W REFLEX (test code = LEUUR) 500 Katie/u L (3+) Katie/uL NEGATIVE A UA WBC (test code = WBCU) >200 per HPF 0-5 A UA RBC (test code = RBCU) 21-50 #/HPF 0-5 UA WBC CLUMPS (test code = WBCUCL) >10 /HPF NONE A UA EPITHELIAL CELLS (test code = EPIU) None seen per HPF FEW UA BACTERIA (test code = BACU) MANY #/HPF NONE A UA MUCUS (test code = MUCU) MODERATE #/LPF FEW A Urine Source? [id number] 14:25:00* Test Item Value Reference Range Interpretation Comments GLUBED (test code = GLUBED) 170 mg/dL 74-106 H Performed by certified rolling mill operator helper at [facility] [id number] 12:24:00* Test Item Value Reference Range Interpretation Comments GLUBED (test code = GLUBED) 275 mg/dL 74-106 H Performed by certified rolling mill operator helper at [facility] [id number] 07:42:00* Test Item Value Reference Range Interpretation Comments GLUBED (test code = GLUBED) 221 mg/dL 74-106 H Performed by certified rolling mill operator helper at [facility] [id number] 02:33:00* Test Item Value Reference Range Interpretation Comments GLUBED (test code = GLUBED) 215 mg/dL 74-106 H Performed by certified rolling mill operator helper at [facility] [id number] 20:12:00* Test Item Value Reference Range Interpretation Comments GLUBED (test code = GLUBED) 207 mg/dL 74-106 H Performed by certified rolling mill operator helper at [facility] [id number] 11:06:00* Test Item Value Reference Range Interpretation Comments GLUBED (test code = GLUBED) 155 mg/dL 74-106 H Performed by certified rolling mill operator helper at [facility] [id number] 07:42:00* Test Item Value Reference Range Interpretation Comments GLUBED (test code = GLUBED) 206 mg/dL 74-106 H Performed by certified rolling mill operator helper at [facility] [id number] 20:12:00* Test Item Value Reference Range Interpretation Comments GLUBED (test code = GLUBED) 205 mg/dL 74-106 H Performed by certified rolling mill operator helper at [facility] [id number] 16:26:00* Test Item Value Reference Range Interpretation Comments GLUBED (test code = GLUBED) 244 mg/dL 74-106 H Performed by certified rolling mill operator helper at [facility] [id number] 11:35:00* Test Item Value Reference Range Interpretation Comments GLUBED (test code = GLUBED) 70 mg/dL 74-106 L Performed by certified rolling mill operator helper at [facility] [id number] 08:07:00* Test Item Value Reference Range Interpretation Comments GLUBED (test code = GLUBED) 207 mg/dL 74-106 H Performed by certified rolling mill operator helper at [facility] [id number] 20:39:00* Test Item Value Reference Range Interpretation Comments GLUBED (test code = GLUBED) 173 mg/dL 74-106 H Performed by certified rolling mill operator helper at [facility] [id number] 15:45:00* Test Item Value Reference Range Interpretation Comments GLUBED (test code = GLUBED) 166 mg/dL 74-106 H Performed by certified rolling mill operator helper at [facility] [id number] 11:15:00* Test Item Value Reference Range Interpretation Comments GLUBED (test code = GLUBED) 182 mg/dL 74-106 H Performed by certified rolling mill operator helper at [facility] GOROGS3061-17-60 07:16:00* Test Item Value Reference Range Interpretation Comments GLUBED (test code = GLUBED) 137 mg/dL 74-106 H Performed by certified rolling mill operator helper at [facility] BASIC METABOLIC [id number] 06:46:00* Test Item Value Reference Range Interpretation Comments SODIUM (test code = NA) 142 mmol/L 136-145 N POTASSIUM (test code = K) 4.4 mmol/L 3.5-5.1 N CHLORIDE (test code = CL) 110.0 mmol/L 98-107 H CARBON DIOXIDE (test code = CO2) 25.0 mmol/L 21-32 N ANION GAP (test code = GAP) 11.4 10-20 N GLUCOSE (test code = GLU) 109 mg/dL 74-106 H BLOOD UREA NITROGEN (test code = BUN) 9 mg/dL 7-18 N GLOMERULAR FILTRATION RATE (test code = GFR) > 60 mL/min >=60 Estimated GFR by using Modified MDRD formula.Chronic kidney disease is defined as either kidney damageor GFR <60 mL/min/1.73 m2 for >3 months. CREATININE (test code = CREAT) 0.80 mg/dL 0.7-1.3 N BUN/CREATININE RATIO (test code = BUN/CREA) 11.3 10-20 N CALCIUM (test code = CA) 8.2 mg/dL 8.5-10.1 L BASIC METABOLIC [id number] 06:41:00* Test Item Value Reference Range Interpretation Comments SODIUM (test code = NA) 142 mmol/L 136-145 N POTASSIUM (test code = K) 4.4 mmol/L 3.5-5.1 N CHLORIDE (test code = CL) 110.0 mmol/L 98-107 H CARBON DIOXIDE (test code = CO2) mmol/L 21-32 ANION GAP (test code = GAP) 10-20 GLUCOSE (test code = GLU) mg/dL 74-106 BLOOD UREA NITROGEN (test code = BUN) mg/dL 7-18 GLOMERULAR FILTRATION RATE (test code = GFR) mL/min >=60 CREATININE (test code = CREAT) mg/dL 0.7-1.3 BUN/CREATININE RATIO (test code = BUN/CREA) 10-20 CALCIUM (test code = CA) mg/dL 8.5-10.1 [id number] 20:25:00* Test Item Value Reference Range Interpretation Comments GLUBED (test code = GLUBED) 88 mg/dL 74-106 N Performed by certified rolling mill operator helper at [facility] [id number] 16:06:00* Test Item Value Reference Range Interpretation Comments GLUBED (test code = GLUBED) 210 mg/dL 74-106 H Performed by certified rolling mill operator helper at [facility] [id number] 11:17:00* Test Item Value Reference Range Interpretation Comments GLUBED (test code = GLUBED) 121 mg/dL 74-106 H Performed by certified rolling mill operator helper at [facility] [id number] 07:42:00* Test Item Value Reference Range Interpretation Comments GLUBED (test code = GLUBED) 188 mg/dL 74-106 H Performed by certified rolling mill operator helper at [facility] [id number] 20:15:00* Test Item Value Reference Range Interpretation Comments GLUBED (test code = GLUBED) 124 mg/dL 74-106 H Performed by certified rolling mill operator helper at [facility] BASIC METABOLIC [id number] 16:26:00* Test Item Value Reference Range Interpretation Comments SODIUM (test code = NA) 142 mmol/L 136-145 N POTASSIUM (test code = K) 5.4 mmol/L 3.5-5.1 H CHLORIDE (test code = CL) 108.0 mmol/L 98-107 H CARBON DIOXIDE (test code = CO2) 27.0 mmol/L 21-32 N ANION GAP (test code = GAP) 12.4 10-20 N GLUCOSE (test code = GLU) 174 mg/dL 74-106 H BLOOD UREA NITROGEN (test code = BUN) 12 mg/dL 7-18 N GLOMERULAR FILTRATION RATE (test code = GFR) > 60 mL/min >=60 Estimated GFR by using Modified MDRD formula.Chronic kidney disease is defined as either kidney damageor GFR <60 mL/min/1.73 m2 for >3 months. CREATININE (test code = CREAT) 1.00 mg/dL 0.7-1.3 N BUN/CREATININE RATIO (test code = BUN/CREA) 12.0 10-20 N CALCIUM (test code = CA) 8.6 mg/dL 8.5-10.1 N [id number] 16:25:00* Test Item Value Reference Range Interpretation Comments GLUBED (test code = GLUBED) 167 mg/dL 74-106 H Performed by certified rolling mill operator helper at [facility] CBC W/AUTO [id number] 16:17:00* Test Item Value Reference Range Interpretation Comments WHITE BLOOD CELL (test code = WBC) 8.9 K/mm3 4.5-12.5 N RED BLOOD CELL (test code = RBC) 4.04 mill/mm3 4.0-5.8 N HEMOGLOBIN (test code = HGB) 10.7 gram/dL 13.0-17.5 L HEMATOCRIT (test code = HCT) 33.8 % 42.0-52.0 L MEAN CELL VOLUME (test code = MCV) 83.7 fL 80-98 N MEAN CELL HGB (test code = MCH) 26.5 picogram 27.0-33.0 L MEAN CELL HGB CONCETRATION (test code = MCHC) 31.7 gram/dL 33.0-36. 0 L RED CELL DISTRIBUTION WIDTH (test code = RDW) 14.1 % 11.6-16. 2 N RED CELL DISTRIBUTION WIDTH SD (test code = RDW-SD) 42.1 fL 37 .0-51.0 N PLATELET COUNT (test code = PLT) 271 K/mm3 150-450 N MEAN PLATELET VOLUME (test code = MPV) 8.8 fL 6.7-11.0 N NEUTROPHIL % (test code = NT%) 87.9 % 39.0-69.0 H IMMATURE GRANULOCYTE % (test code = IG%) 0.6 % 0.0-5.0 N LYMPHOCYTE % (test code = LY%) 5.9 % 25.0-55.0 L MONOCYTE % (test code = MO%) 5.1 % 0.0-10.0 N EOSINOPHIL % (test code = EO%) 0.2 % 0.0-5.0 N BASOPHIL % (test code = BA%) 0.3 % 0.0-1.0 N NUCLEATED RBC % (test code = NRBC%) 0.0 % 0-0 N NEUTROPHIL # (test code = NT#) 7.78 K/mm3 1.8-7.7 H IMMATURE GRANULOCYTE # (test code = IG#) 0.05 x10 3/uL 0-0.03 H LYMPHOCYTE # (test code = LY#) 0.52 K/mm3 1.0-5.0 L MONOCYTE # (test code = MO#) 0.45 K/mm3 0-0.8 N EOSINOPHIL # (test code = EO#) 0.02 K/mm3 0.0-0.5 N BASOPHIL # (test code = BA#) 0.03 K/mm3 0.0-0.2 N NUCLEATED RBC # (test code = NRBC#) 0.00 K/mm3 0.0-0.1 N [id number] 14:19:00* Test Item Value Reference Range Interpretation Comments GLUBED (test code = GLUBED) 175 mg/dL 74-106 H Performed by certified rolling mill operator helper at [facility] [id number] 12:15:00* Test Item Value Reference Range Interpretation Comments GLUBED (test code = GLUBED) 132 mg/dL 74-106 H Performed by certified rolling mill operator helper at [facility] [id number] 08:12:00* Test Item Value Reference Range Interpretation Comments GLUBED (test code = GLUBED) 108 mg/dL 74-106 H Performed by certified rolling mill operator helper at [facility] Prothrombin time (PT) in platelet poor plasma by coagulation noctp8502-84-34 04:39:00* Test Item Value Reference Range Interpretation Comments Prothrombin Time (test code = 5902-2) 15.7 11.9-14.5 [facility] Platelet poor plasma by Coagulation yzmtg2334-96-98 04:39:00* Test Item Value Reference Range Interpretation Comments Prothromb Time International Ratio (test code = 6301-6) 1.17 Oral Anticoagulant Therapy INR Values:1. Low Intensity Therapy 1.5 - 2.02 . Moderate Intensity Therapy 2.0 - 3.03. High Intensity Therapy(1) 2.5 - 3. 54. High Intensity Therapy(2) 3.0 - 4.05. Panic Value INR > 5.0 [facility] X[facility] LINE [id number] 18:19:00 [place] [address] Patient Name: LISA GLASER MR #: [id number] : 1940 Age/Sex: 79/M Req #: [id number] Adm Physician: ED SHETTY MD Ordered by: ED SHETTY MD Report #: [id number] Location: MED/SURG2 Room/Bed: [facility] Procedure: [id number] DX/C HEST XRAY LINE PLACEMENT Exam Date: 10/22/19 Exam Ti me: 173 REPORT STATUS: Signed E XAMINATION: CHEST XRAY LINE PLACEMENT INDICATION: PICC L INE PLACEMENT [id number] COMPARISON: None FINDINGS: TUBES and LINES: Right peripherally inserted central venous catheter with dis luan tip over the low superior vena cava LUNGS: Airspace opacity in the left lung base worrisome for pneumonia. PLEURA: No pneumothorax. Possible smal l left pleural effusion. HEART AND MEDIASTINUM: The cardiomediastinal silh ouette is unremarkable. BONES AND SOFT TISSUES: No acute osseous lesio n. Soft tissues are unremarkable. UPPER ABDOMEN: No free air under the d iaphragm. IMPRESSION: Right peripherally inserted central venous cat heter with distal tip over the low superior vena cava. No pneumothorax. A irspace opacity in the left lung base worrisome for pneumonia. Follow-up imagi ng is indicated to document clearing. Signed by: Dr. Nash Hsieh M.D. on 6:22 PM Dictated By: NASH HSIEH MD, MD 21 Transcribed By: DEMOND on 10/22/19 COPY TO: DE SHETTY MD Activated partial thromboplastin time (aPTT) in platelet poor plasma by coagulation [id number] 05:40:00* Test Item Value Reference Range Interpretation Comments Activated Partial Thromboplast Time (test code = 83987-7) 33.1 23.8-35.5 [facility] MarshallPhosphorus crebodjrzyc8414-16-04 05:44:00 * Test Item Value Reference Range Interpretation Comments Phosphorus Level (test code = SVT6657) 2.2 2.3-4.7 [facility] si[facility]imus [facility] (mass/volume) 2019-10-21 05:44:00* Test Item Value Reference Range Interpretation Comments Rapamycin Level (test code = 84243-9) 5.8 3.0-20.0 Detection Limit = 1.0 Performed by LC/ MS-MS technology This test was developed and its performance c haracteristics determined by [employer]. It has not been cleared or approv ed by the Food and Drug Administration.Performed at: [address] [id number] Director: Dede Tsai MD , Phone: [phone] SouthBlood cyclosporine measurement by immunoassay (mass/volume)2019-10-21 05:44:00* Test Item Value Reference Range Interpretation Comments Cyclosporine Level (test code = 49173-0) 35 100-400 Therapeutic: Renal Transplant 1 00 - 250 Liver Transplant 100 - 400 Cardiac Transplant 100 - 400 Bone Marrow 20 0 - 300 Detection Limit = 25Cyclosporine assay p erformed by [employer] CEDIAImmunoassay.If preferred testing methodology for cy closporine isLiquid Chromatography Tandem Mass Spectrometry(LC-MS/MS), please us e test code 622010. For testingperformed by Immunoassay, please use test code 70 6557.Performed at: [address] [id number] b Director: Leo Saavedra PhD, Phone: [phone] SouthUS RENAL RETROPERITONEAL [id number] 18:31:00 [place] [address] Patient Name: LISA GLASER MR #: [id number] : 1940 Age/Sex: 79/M Req #: [id number] Adm Physician: ED SHETTY MD Ordered by: JACEK LUDWIG MD Report #: [id number] Location: MED/SURG2 Room/Bed: [facility] Procedure: [id number] US/U S RENAL RETROPERITONEAL COMP Exam Date: 10/20/19 Les m Time: 1705 REPORT STATUS: Signed EXAM: Renal Ultrasound INDICATION: arf, pls check transplanted k idney for hydro COMPARISON: None TECHNIQUE: Transverse and longitudinal i mages of the kidneys and bladder were obtained. FINDINGS: Oneyda nestor kidneys not visualized. Transplanted right kidney in the right lower qu adrant: Length: 12.2 x 6.2 x 5.9 cm Appearance: Normal echogenicity. Col lecting system: No hydronephrosis Stones: None Cyst/Mass: None Bladder: Normal The prostate is normal in size, measuring 3 x 2.5 x 2.6 cm. IMPRESSION: Normal transplant right lower quadrant kidney. Signed by: Dr Reyna Samuels M.D. on 10/20/2019 6:34 PM Dictated By: TIFFANIE SAMUELS MD 33 COPY TO: JACEK LUDWIG MD Bedside Fsceqqh3860-65-67 08:10:00* Test Item Value Reference Range Interpretation Comments Bedside Glucose (test code = 58922-6) 77 70-120 Meter ID: [id number] Park Regional Medical Centerodium Level 2019-10-19 06:17:00* Test Item Value Reference Range Interpretation Comments Sodium Level (test code = 2951-2) 137 136-145 [facility] MarshallPotassium Ofgbi6807-00-75 06:17:00* Test Item Value Reference Range Interpretation Comments Potassium Level (test code = 2823-3) 4.0 3.5-5.1 [facility] MarshallChloride Hatdn5748-66-96 06:17:00* Test Item Value Reference Range Interpretation Comments Chloride Level (test code = 2075-0) 105 98-107 [facility] MarshallCarbon Dioxide Zcyda8676-49-27 06:17:00* Test Item Value Reference Range Interpretation Comments Carbon Dioxide Level (test code = 2028-9) 24 22-29 [facility] MarshallAnion [id number] 06:17:00* Test Item Value Reference Range Interpretation Comments Anion Gap (test code = 73073-4) 12.0 8-16 [facility] MarshallBlood Urea Sltuytks4072-34-56 06:17:00* Test Item Value Reference Range Interpretation Comments Blood Urea Nitrogen (test code = 3094-0) 28 7-26 H [facility] MarshallCreatinine2020-04-10 06:17:00* Test Item Value Reference Range Interpretation Comments Creatinine (test code = 2160-0) 1.70 0.72-1.25 H [facility] MarshallBUN/Creatinine Dlxgx9044-92-14 06:17:00* Test Item Value Reference Range Interpretation Comments BUN/Creatinine Ratio (test code = 3097-3) 16 6-25 [facility] MarshallEstimat Glomerular Filtration Rate 2019-10-19 06:17:00* Test Item Value Reference Range Interpretation Comments Estimat Glomerular Filtration Rate (test code = 779103240) 39 >60 L Ranges were taken from the National Kidney Disease Education Program and the [facility] Foundation literature.Reference ranges:60 or greater: Rthehm66-67 ( for 3 consecutive months): Chronic kidney disease 15 or less: Kidney failureCHRISTUS [facility] – MarshallGlucose Wdcus4118-07-92 06:17:00* Test Item Value Reference Range Interpretation Comments Glucose Level (test code = HES9292) 89 74-118 [facility] MarshallCalcium Jsvzg6961-77-06 06:17:00* Test Item Value Reference Range Interpretation Comments Calcium Level (test code = 10674-8) 8.1 8.4-10.2 L [facility] MarshallTotal Yhkbudurx9412-44-86 06:17:00* Test Item Value Reference Range Interpretation Comments Total Bilirubin (test code = 1975-2) 0.3 0.2-1.2 [facility] MarshallAspartate Amino Transf (AST/SGOT) 2019-10-19 06:17:00* Test Item Value Reference Range Interpretation Comments Aspartate Amino Transf (AST/SGOT) (test code = Aspartate Amino Transf (AST/SGOT)) 13 5-34 [facility] MarshallAlanine Aminotransferase (ALT/SGPT) 2019-10-19 06:17:00* Test Item Value Reference Range Interpretation Comments Alanine Aminotransferase (ALT/SGPT) (test code = 1742-6) 7 0-55 [facility] MarshallTotal Ryxvwrb9177-89-58 06:17:00* Test Item Value Reference Range Interpretation Comments Total Protein (test code = 2885-2) 6.2 6.5-8.1 L [facility] MarshallAlbumin2020-04-10 06:17:00* Test Item Value Reference Range Interpretation Comments Albumin (test code = 1751-7) 2.1 3.5-5.0 L [facility] MarshallGlobulin2020-04-10 06:17:00* Test Item Value Reference Range Interpretation Comments Globulin (test code = 67556-9) 4.1 2.3-3.5 H [facility] MarshallAlbumin/Globulin Jvvqv7129-92-44 06:17:00 * Test Item Value Reference Range Interpretation Comments Albumin/Globulin Ratio (test code = 1759-0) 0.5 0.8-2.0 L [facility] MarshallAlkaline Qvplgsdjhqq2623-38-43 06:17:00* Test Item Value Reference Range Interpretation Comments Alkaline Phosphatase (test code = 6768-6) 85 40-150 [facility] MarshallBlood Kkcuaif1318-22-26 12:26:00* Test Item Value Reference Range Interpretation Comments Blood Culture (test code = 36117756) NO GROWTH AFTER 24 HOURS [facility] MarshallHemoglobin A1c Tzjyeyw4170-47-58 11:00:00 * Test Item Value Reference Range Interpretation Comments Hemoglobin A1c Percent (test code = Hemoglobin A1c Percent) 7.9 4.0-7.0 H [facility] MarshallThyroid Stimulating Hormone (TSH) 2019-10-18 07:43:00* Test Item Value Reference Range Interpretation Comments Thyroid Stimulating Hormone (TSH) (test code = 15936-2) 0.878 0.350-4.940 [facility] MarshallWhite Blood Vlgfp4335-99-51 06:38:00* Test Item Value Reference Range Interpretation Comments White Blood Count (test code = 6690-2) 12.13 4.8-10.8 H [facility] MarshallRed Blood Hjbom3744-13-54 06:38:00* Test Item Value Reference Range Interpretation Comments Red Blood Count (test code = 789-8) 4.13 4.3-5.7 L [facility] MarshallHemoglobin2020-04-09 06:38:00* Test Item Value Reference Range Interpretation Comments Hemoglobin (test code = 85067-3) 11.3 14.0-18.0 L [facility] MarshallHematocrit2020-04-09 06:38:00* Test Item Value Reference Range Interpretation Comments Hematocrit (test code = 4544-3) 34.8 38.2-49.6 L [facility] MarshallMean Corpuscular Vyyiwq5939-79-57 06:38:00* Test Item Value Reference Range Interpretation Comments Mean Corpuscular Volume (test code = 787-2) 84.3 81-99 [facility] MarshallMean Corpuscular Jrajitcfvb9037-68-86 06:38:00* Test Item Value Reference Range Interpretation Comments Mean Corpuscular Hemoglobin (test code = 785-6) 27.4 28-32 L [facility] MarshallMean Corpuscular Hemoglobin Concent 2019-10-18 06:38:00* Test Item Value Reference Range Interpretation Comments Mean Corpuscular Hemoglobin Concent (test code = 786-4) 32.5 31-35 [facility] MarshallRed Cell Distribution Xjaqy1935-95-88 06:38:00* Test Item Value Reference Range Interpretation Comments Red Cell Distribution Width (test code = 55433-9) 12.8 11.7 -14.4 [facility] MarshallPlatelet Udguw2181-63-25 06:38:00* Test Item Value Reference Range Interpretation Comments Platelet Count (test code = 777-3) 300 140-360 [facility] MarshallNeutrophils (%) (Auto)2019-10-18 06:38:00 * Test Item Value Reference Range Interpretation Comments Neutrophils (%) (Auto) (test code = 92373-8) 79.1 38.7-80.0 [facility] MarshallLymphocytes (%) (Auto)2019-10-18 06:38:00 * Test Item Value Reference Range Interpretation Comments Lymphocytes (%) (Auto) (test code = 736-9) 7.9 18.0-39.1 L [facility] MarshallMonocytes (%) (Auto)2019-10-18 06:38:00* Test Item Value Reference Range Interpretation Comments Monocytes (%) (Auto) (test code = 5905-5) 12.0 4.4-11.3 H [facility] MarshallEosinophils (%) (Auto)2019-10-18 06:38:00 * Test Item Value Reference Range Interpretation Comments Eosinophils (%) (Auto) (test code = 713-8) 0.2 0.0-6.0 [facility] MarshallBasophils (%) (Auto)2019-10-18 06:38:00* Test Item Value Reference Range Interpretation Comments Basophils (%) (Auto) (test code = 706-2) 0.2 0.0-1.0 [facility] MarshallIM GRANULOCYTES %2019-10-18 06:38:00* Test Item Value Reference Range Interpretation Comments IM GRANULOCYTES % (test code = IM GRANULOCYTES %) 0.6 0.0- 1.0 [facility] MarshallNeutrophils # (Auto)2019-10-18 06:38:00* Test Item Value Reference Range Interpretation Comments Neutrophils # (Auto) (test code = 751-8) 9.6 2.1-6.9 H [facility] MarshallLymphocytes # (Auto)2019-10-18 06:38:00* Test Item Value Reference Range Interpretation Comments Lymphocytes # (Auto) (test code = 11631-1) 1.0 1.0-3.2 [facility] MarshallMonocytes # (Auto)2019-10-18 06:38:00* Test Item Value Reference Range Interpretation Comments Monocytes # (Auto) (test code = 742-7) 1.5 0.2-0.8 H [facility] MarshallEosinophils # (Auto)2019-10-18 06:38:00* Test Item Value Reference Range Interpretation Comments Eosinophils # (Auto) (test code = 711-2) 0.0 0.0-0.4 [facility] MarshallBasophils # (Auto)2019-10-18 06:38:00* Test Item Value Reference Range Interpretation Comments Basophils # (Auto) (test code = 704-7) 0.0 0.0-0.1 [facility] MarshallAbsolute Immature Granulocyte (auto 2019-10-18 06:38:00* Test Item Value Reference Range Interpretation Comments Absolute Immature Granulocyte (auto (rodrick t code = Absolute Immature Granulocyte (auto) 0.07 0-0.1 [facility] MarshallCreatine Vquutx1759-74-53 20:52:00* Test Item Value Reference Range Interpretation Comments Creatine Kinase (test code = 2157-6) 78 30-200 [facility] MarshallCreatine Kinase EW1443-05-63 20:52:00* Test Item Value Reference Range Interpretation Comments Creatine Kinase MB (test code = 69383-6) 1.20 0-5.0 [facility] MarshallTroponin [id number] 20:52:00* Test Item Value Reference Range Interpretation Comments Troponin I (test code = 80135-8) < 0.001 0-0.300 [facility] or plasma creatine kinase measurement (enzymatic activity/volume)2019-10-17 20:00:00* Test Item Value Reference Range Interpretation Comments Creatine Kinase (test code = 2157-6) 78 30-200 [facility] or plasma creatine kinase MB measurement (mass/volume)2019-10-17 20:00:00* Test Item Value Reference Range Interpretation Comments Creatine Kinase MB (test code = 81617-1) 1.20 0-5.0 [facility] MarshallTroponin I measurement by highly sensitive enzyme vupxxsknipl0417-79-36 20:00:00* Test Item Value Reference Range Interpretation Comments Troponin I (test code = 08022-3) < 0.001 0-0.300 [facility] MarshallFOOT RIGHT SZJNTRHP0326-02-35 12:54:00 [facility] [address] [address] Patient Name: LISA GLASER MR #: [id number] : 1939 Age/Sex: 79/M Req #: [id number] Adm Physician: Ordered by: WONG CARRERA MD Report #: [id number] Location: ER Room/Bed: Procedure: [id number] D X/FOOT RIGHT COMPLETE Exam Date: 10/17/19 Exam Time: 1233 REPORT STATUS: Signed EXAM INATION: FOOT RIGHT COMPLETE INDICATION: Foot gangrene COMPARISON : None FINDINGS: Status post third and fourth digital amputation. No acute fracture or dislocation. Soft tissue ulceration of the second toe wi th subcutaneous soft tissue emphysema and exposed bone at the distal tuft of t he second distal phalanx. Diffuse atherosclerotic calcifications. IMPRESS ION: Soft tissue ulceration of the second toe with exposed bone at the distal tuft of the second distal phalanx. 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 Signed by: Blaine Latif MD on 10/17/2019 12:56 PM Dictated By: BLAINE LATIF MD COPY TO: DANIEL CARRERA RD, MD Prothrombin Zagq8801-47-31 12:46:00* Test Item Value Reference Range Interpretation Comments Prothrombin Time (test code = 5902-2) 14.4 11.9-14.5 [facility] MarshallProthromb Time International Ratio 2019-10-17 12:46:00* Test Item Value Reference Range Interpretation Comments Prothromb Time International Ratio (test code = 6301-6) 1.05 Oral Anticoagulant Therapy INR Values:1. Low Intensity Therapy 1.5 - 2.02 . Moderate Intensity Therapy 2.0 - 3.03. High Intensity Therapy(1) 2.5 - 3. 54. High Intensity Therapy(2) 3.0 - 4.05. Panic Value INR > 5.0 [facility] MarshallActivated Partial Thromboplast Time 2019-10-17 12:46:00* Test Item Value Reference Range Interpretation Comments Activated Partial Thromboplast Time (test code = 75146-2) 41.3 23.8-35.5 H [facility] MarshallFOOT RIGHT AP [id number] 08:30:[address] [address] Patient Name: LISA GALSER MR #: [id number] : 1939 Age/Sex: 78/M Req #: [id number] Adm Physician: Ordered by: FUENTES DAVE DPGiovanna Report #: [id number] Location: OR Room/Bed: Procedure: [id number] DX/ FOOT RIGHT AP LAT Exam Date: 10/20/18 Exam Time: 0 815 REPORT STATUS: Signed Exa m: Right foot radiographs-2 views Clinical History: Status post amputation. Comparison: Right foot radiographs 09/15/2018. Findings: Overlying b andage obscures bony detail. There has been interval amputation of the third t oe. There has been prior amputation of the fourth toe. There is surrounding so ft tissue edema, consistent with recent surgery. No evidence of acute displace d fracture. There is an apparent sclerotic appearance at the base of the f ifth metatarsal. No evidence of lytic bony destructive changes or periosteal c hanges to suggest acute osteomyelitis. There are diffuse atherosclerotic vascu lar calcifications. Impression: Status post amputation of the fourth toe and prior amputation of the third toe. Overlying bandage obscures bony detail. Apparent sclerotic appearance at the base of the fifth metatarsal may be al factual from overlying bandage. However, a healing fracture chronic infectious process can have a similar appearance. Suggest follow-up repeat radiographs w ith bandage material removed. Signed by: Dr. Georgie Ordonez MD on 10/20/2018 8: 38 AM Dictated By: GEORGIE ORDONEZ MD 7 Transcribed By: DEMOND on 10/20/18837 COPY TO: FUENTES MUKHERJEE DPM CHEST 2 SQHTD8485-07-97 11:04:00 [address] [address] Patient Name: LISA GLASER MR #: [id number] : 1940 Age/Sex: 78/M Req #: [id number] Adm Physician: Ordered by: FUENTES DAVE DPM Report #: [id number] Location: OR Room/Bed: Procedure: [id number] DX/ CHEST 2 VIEWS Exam Date: 10/19/18 Exam Time: 929 REPORT STATUS: Signed EXAM: CHEST 2 VIEWS DATE: 10/19/2018 9:30 AM INDICATION: Preop, foot surgery COMPARISON: Chest x-ray, 09/10/2018 FINDINGS: Lines and tubes: None Heart size normal. Trace right pleural effusion has resolved, and left pleural effusion has improved. Minimal residual left lower lobe atelectasis. N o acute consolidation or pneumothorax. Upper abdomen unremarkable. No acu te bony abnormality. IMPRESSION: Improvement of pleural effusions since l ast exam. Mild residual basilar atelectasis. Signed by: Dr. Ashok Oglesby M.D. on 10/19/2018 11:08 AM Dictated By: ASHOK OGLESBY MD Electronicall y Signed By: ASHOK OGLESBY MD on 10/19/181107 Transcribed By: DEMOND on 10/19 COPY TO: FUENTES DAVE DPM Bedside Pxjobqi3239-51-83 12:05:00* Test Item Value Reference Range Interpretation Comments Bedside Glucose (test code = 98423-7) 73 70-120 Meter ID: [id number] [facility] SouthWound Culture 2018-09-16 10:17:00* Test Item Value Reference Range Interpretation Comments Wound Culture (test code = 6462-6) Organism: GRAM NEGATIVE RONDA [facility] MarshallWhite Blood Gymbh7792-75-10 09:32:00* Test Item Value Reference Range Interpretation Comments White Blood Count (test code = 6690-2) 10.35 4.8-10.8 [facility] MarshallRed Blood Ivqro8764-21-39 09:32:00* Test Item Value Reference Range Interpretation Comments Red Blood Count (test code = 789-8) 4.28 4.3-5.7 L [facility] MarshallHemoglobin2019-03-09 09:32:00* Test Item Value Reference Range Interpretation Comments Hemoglobin (test code = 97308-3) 12.1 14.0-18.0 L [facility] MarshallHematocrit2019-03-09 09:32:00* Test Item Value Reference Range Interpretation Comments Hematocrit (test code = 4544-3) 35.6 38.2-49.6 L [facility] MarshallMean Corpuscular Clcnln1315-89-79 09:32:00* Test Item Value Reference Range Interpretation Comments Mean Corpuscular Volume (test code = 787-2) 83.2 81-99 [facility] MarshallMean Corpuscular Tyddojcwjq2909-09-23 09:32:00* Test Item Value Reference Range Interpretation Comments Mean Corpuscular Hemoglobin (test code = 785-6) 28.3 28-32 [facility] MarshallMean Corpuscular Hemoglobin Concent 2018-09-16 09:32:00* Test Item Value Reference Range Interpretation Comments Mean Corpuscular Hemoglobin Concent (test code = 786-4) 34.0 31-35 [facility] MarshallRed Cell Distribution Lipvv4591-61-59 09:32:00* Test Item Value Reference Range Interpretation Comments Red Cell Distribution Width (test code = 88014-4) 13.6 11.7 -14.4 [facility] MarshallPlatelet Suobl9415-91-83 09:32:00* Test Item Value Reference Range Interpretation Comments Platelet Count (test code = 777-3) 277 140-360 [facility] MarshallNeutrophils (%) (Auto)2018-09-16 09:32:00 * Test Item Value Reference Range Interpretation Comments Neutrophils (%) (Auto) (test code = 71340-5) 76.7 38.7-80.0 [facility] MarshallLymphocytes (%) (Auto)2018-09-16 09:32:00 * Test Item Value Reference Range Interpretation Comments Lymphocytes (%) (Auto) (test code = 736-9) 6.2 18.0-39.1 L [facility] MarshallMonocytes (%) (Auto)2018-09-16 09:32:00* Test Item Value Reference Range Interpretation Comments Monocytes (%) (Auto) (test code = 5905-5) 14.6 4.4-11.3 H [facility] MarshallEosinophils (%) (Auto)2018-09-16 09:32:00 * Test Item Value Reference Range Interpretation Comments Eosinophils (%) (Auto) (test code = 713-8) 1.0 0.0-6.0 [facility] MarshallBasophils (%) (Auto)2018-09-16 09:32:00* Test Item Value Reference Range Interpretation Comments Basophils (%) (Auto) (test code = 706-2) 0.5 0.0-1.0 [facility] MarshallIM GRANULOCYTES %2018-09-16 09:32:00* Test Item Value Reference Range Interpretation Comments IM GRANULOCYTES % (test code = IM GRANULOCYTES %) 1.0 0.0- 1.0 [facility] MarshallNeutrophils # (Auto)2018-09-16 09:32:00* Test Item Value Reference Range Interpretation Comments Neutrophils # (Auto) (test code = 751-8) 8.0 2.1-6.9 H [facility] MarshallLymphocytes # (Auto)2018-09-16 09:32:00* Test Item Value Reference Range Interpretation Comments Lymphocytes # (Auto) (test code = 28050-2) 0.6 1.0-3.2 L [facility] MarshallMonocytes # (Auto)2018-09-16 09:32:00* Test Item Value Reference Range Interpretation Comments Monocytes # (Auto) (test code = 742-7) 1.5 0.2-0.8 H [facility] MarshallEosinophils # (Auto)2018-09-16 09:32:00* Test Item Value Reference Range Interpretation Comments Eosinophils # (Auto) (test code = 711-2) 0.1 0.0-0.4 [facility] MarshallBasophils # (Auto)2018-09-16 09:32:00* Test Item Value Reference Range Interpretation Comments Basophils # (Auto) (test code = 704-7) 0.1 0.0-0.1 [facility] MarshallAbsolute Immature Granulocyte (auto 2018-09-16 09:32:00* Test Item Value Reference Range Interpretation Comments Absolute Immature Granulocyte (auto (rodrick t code = Absolute Immature Granulocyte (auto) 0.10 0-0.1 [facility] Centerodium Egdfo5062-16-04 07:14:00* Test Item Value Reference Range Interpretation Comments Sodium Level (test code = 2951-2) 136 136-145 [facility] MarshallPotassium Flotj5438-71-26 07:14:00* Test Item Value Reference Range Interpretation Comments Potassium Level (test code = 2823-3) 3.9 3.5-5.1 [facility] MarshallChloride Eoukk0802-56-33 07:14:00* Test Item Value Reference Range Interpretation Comments Chloride Level (test code = 2075-0) 108 98-107 H [facility] MarshallCarbon Dioxide Dvfol5366-06-61 07:14:00* Test Item Value Reference Range Interpretation Comments Carbon Dioxide Level (test code = 2028-9) 19 22-29 L [facility] MarshallAnion Qrj3246-41-51 07:14:00* Test Item Value Reference Range Interpretation Comments Anion Gap (test code = 13236-5) 12.9 8-16 [facility] MarshallBlood Urea Cmpqhxav7954-34-12 07:14:00* Test Item Value Reference Range Interpretation Comments Blood Urea Nitrogen (test code = 3094-0) 16 7-26 [facility] MarshallCreatinine2019-03-09 07:14:00* Test Item Value Reference Range Interpretation Comments Creatinine (test code = 2160-0) 0.78 0.72-1.25 [facility] MarshallBUN/Creatinine Mzypu7893-29-98 07:14:00* Test Item Value Reference Range Interpretation Comments BUN/Creatinine Ratio (test code = 3097-3) 21 6-25 [facility] MarshallEstimat Glomerular Filtration Rate 2018-09-16 07:14:00* Test Item Value Reference Range Interpretation Comments Estimat Glomerular Filtration Rate (test code = 867652213) > 60 >60 Ranges were taken from the National Kidney Disease Education Program and the [facility] Kid[facility] Foundation literature.Reference ranges:60 or greater: Ezvtqk57-38 ( for 3 consecutive months): Chronic kidney disease 15 or less: Kidney failureCHRISTUS Good Shepherd Medical Center – MarshallGlucose Xmqov7369-07-61 07:14:00* Test Item Value Reference Range Interpretation Comments Glucose Level (test code = VRV8735) 77 74-118 [facility] MarshallCalcium Vkajz4081-60-06 07:14:00* Test Item Value Reference Range Interpretation Comments Calcium Level (test code = 45157-8) 8.5 8.4-10.2 [facility] MarshallFOOT RIGHT AP KJX9221-87-39 10:13:00 [facility] [address] [address] Patient Name: LISA GLASER MR #: [id number] : 1939 Age/Sex: 78/M Req #: [id number] Adm Physician: ED SHETTY MD Ordered by: FUENTES DAVE DPM Report #: [id number] Location: [facility] Room/Bed: [facility] Procedure: [id number] DX/ FOOT RIGHT AP LAT Exam Date: 09/15/18 Exam Time: 0 845 REPORT STATUS: Signed Exa m: Right foot radiographs-2 views Clinical History: Status post fourth toe amputation Comparison: Right foot radiographs 09/02/2018 Findings: P er clinical history, the fourth digit has been amputated. The site is poorly e valuated due to obliquity. There is subcutaneous gas at the amputation site wi th linear hyperdensity. Diffuse atherosclerotic vascular calcifications. No evidence of acute fracture or malalignment. There is deformity of the distal phalanx of the first toe, which may reflect sequela of prior trauma. Impr ession: Per history, the fourth digit has been amputated. The site is poorly e valuated due to obliquity. There is subcutaneous gas at the amputation site, w hich may reflect recent postsurgical change. Hyperdensity at the amputation si te could represent overlying material or residual bone and can be correlated w ith history and repeat radiographs if clinically indicated. Signed by : Dr. Georgie Ordonez MD on 09/15/2018 10:20 AM Dictated By: GEORGIE ORDONEZ MD Zainab ctronically Signed By: GEORGIE ORDONEZ MD on 09/15/18 1020 Transcribed By: DEMOND mazariegos 09/15/18 1020 COPY TO: FUENTES DAVE DPGiovanna Total Bilirubin 2018-09-13 07:28:00* Test Item Value Reference Range Interpretation Comments Total Bilirubin (test code = 1975-2) 0.3 0.2-1.2 [facility] MarshallAspartate Amino Transf (AST/SGOT) 2018-09-13 07:28:00* Test Item Value Reference Range Interpretation Comments Aspartate Amino Transf (AST/SGOT) (test code = Aspartate Amino Transf (AST/SGOT)) 15 5-34 [facility] MarshallAlanine Aminotransferase (ALT/SGPT) 2018-09-13 07:28:00* Test Item Value Reference Range Interpretation Comments Alanine Aminotransferase (ALT/SGPT) (test code = 1742-6) 18 0-55 [facility] MarshallTotal Qpbyvoi5489-04-36 07:28:00* Test Item Value Reference Range Interpretation Comments Total Protein (test code = 2885-2) 6.5 6.5-8.1 [facility] MarshallAlbumin2019-03-06 07:28:00* Test Item Value Reference Range Interpretation Comments Albumin (test code = 1751-7) 2.7 3.5-5.0 L [facility] MarshallGlobulin2019-03-06 07:28:00* Test Item Value Reference Range Interpretation Comments Globulin (test code = 32788-9) 3.8 2.3-3.5 H [facility] MarshallAlbumin/Globulin Datse7970-76-63 07:28:00 * Test Item Value Reference Range Interpretation Comments Albumin/Globulin Ratio (test code = 1759-0) 0.7 0.8-2.0 L [facility] MarshallAlkaline Jmsqgakzyhs5545-84-55 07:28:00* Test Item Value Reference Range Interpretation Comments Alkaline Phosphatase (test code = 6768-6) 90 40-150 [facility] MarshallPhosphorus Olfdo2103-28-59 06:36:00* Test Item Value Reference Range Interpretation Comments Phosphorus Level (test code = ZXR8939) 3.4 2.3-4.7 [facility] MarshallMagnesium Fcfcv0524-02-29 06:36:00* Test Item Value Reference Range Interpretation Comments Magnesium Level (test code = 57592-4) 1.8 1.3-2.1 [facility] MarshallCHEST 2 RPAGH8742-86-28 09:47:00 [facility] [address] [address] Patient Name: LISA GLASER MR #: [id number] : 1940 Age/Sex: 78/M Req #: [id number] Adm Physician: ED SHETTY MD Ordered by: ED SHETTY MD Report #: [id number] Location: [facility] Room/Bed: [facility] Procedure: [id number] DX/C HEST 2 VIEWS Exam Date: 09/10/18 Exam Time: 929 REPORT STATUS: Signed EXAMINATIO N: PA and lateral views of the chest. COMPARISON: None CLINICAL HISTOR Y: Short of breath DISCUSSION: Lines/tubes: None. Lungs: Left lower lung atelectasis. Pleura: Left pleural effusion. Heart and mediastinum: The cardiomediastinal silhouette is normal. Bones and soft t issues: No acute bony abnormalities. IMPRESSION: Left pleural effu jose alberto with atelectasis Signed by: Dr. Zain Chacon M.D. on 09/10/2018 9:48 AM Dictated By: ZAIN CHACON MD 7 Transcribed By: DEMOND on 09/10/18947 COPY TO: ED SHETTY MD Prothrombin Dznp4102-96-11 06:26:00* Test Item Value Reference Range Interpretation Comments Prothrombin Time (test code = 5902-2) 13.0 11.9-14.5 [facility] MarshallProthromb Time International Ratio 2018-09-10 06:26:00* Test Item Value Reference Range Interpretation Comments Prothromb Time International Ratio (test code = 6301-6) 0.93 Oral Anticoagulant Therapy INR Values:1. Low Intensity Therapy 1.5 - 2.02 . Moderate Intensity Therapy 2.0 - 3.03. High Intensity Therapy(1) 2.5 - 3. 54. High Intensity Therapy(2) 3.0 - 4.05. Panic Value INR > 5.0 [facility] MarshallVancomycin Level Naafrq8634-06-62 12:09:00* Test Item Value Reference Range Interpretation Comments Vancomycin Level Trough (test code = 4092-3) 8.9 5.0-10.0 [facility] MarshallRapamycin Prfvd4112-85-20 08:52:00* Test Item Value Reference Range Interpretation Comments Rapamycin Level (test code = 68283-6) 1.4 3.0-20.0 L Detection Limit = 1.0 Performed by LC/ MS-MS technology This test was developed and its performance c haracteristics determined by [employer]. It has not been cleared or approv ed by the Food and Drug Administration.Performed at: [facility] [id number] [place], [place] [id number] Director: Dede Tsai MD , Phone: [phone] [facility] SouthCyclosporine Level 2018-09-08 05:46:00* Test Item Value Reference Range Interpretation Comments Cyclosporine Level (test code = 30032-6) 25 100-400 L Therapeutic: Renal Transplant 1 00 - 250 Liver Transplant 100 - 400 Cardiac Transplant 100 - 400 Bone Marrow 20 0 - 300 Detection Limit = 25Cyclosporine assay p erformed by s0cket CEDIAImmunoassay.If preferred testing methodology for cy closporine isLiquid Chromatography Tandem Mass Spectrometry(LC-MS/MS), please us e test code 864825. For testingperformed by Immunoassay, please use test code 70 6557.Performed at: [address] [id number] b Director: Leo Saavedra PhD, Phone: [phone] Good Shepherd Medical Center – MarshallBlood Joukcfi2565-04-38 20:24:00* Test Item Value Reference Range Interpretation Comments Blood Culture (test code = 52255600) NO GROWTH AFTER 5 DAYS, FINAL REPORT [facility] MarshallActivated Partial Thromboplast Time 2018-09-04 06:19:00* Test Item Value Reference Range Interpretation Comments Activated Partial Thromboplast Time (test code = 67012-2) 38.3 23.8-35.5 H [facility] MarshallCT CHEST KE2676-87-82 15:56:00 [address] [address] Patient Name: LISA GLASER MR #: [id number] : 1940 Age/Sex: 78/M Req #: [id number] Adm Physician: ED SHETTY MD Ordered by: ED SHETTY MD Report #: [id number] Location: [facility] Room/Bed: [facility] Procedure: [id number] CT/C T CHEST WO Exam Date: 09/02/18 Exam Time: 1512 REPORT STATUS: Signed EXAM: CT Chest without contrast INDICATION: Congestion. COMPARISON: Chest radiogra ph 09/01/18. TECHNIQUE: Chest was scanned utilizing a multidetector helic al scanner from the lung apex through the level of the adrenal glands without administration of IV contrast. Coronal and sagittal reformations were obtained . Routine protocol was performed. Dose modulation, iterative reconstruction, a nd/or weight based adjustment of the mA/kV was utilized to reduce the radiatio n dose to as low as reasonably achievable. RADIATIO N DOSE: Total DLP: 478.4 mGy*cm COMPLICATIONS: None FINDING S: LINES/ TUBES: None. LUNGS AND AIRWAYS/PLEURA: The central airways a re patent. Diffuse mild bronchial wall thickening. There is a small left and a trace right pleural effusion. There are patchy opacities in the left lower lo be. Mild patchy atelectasis within the right lower lobe, lingula, and middle l obe. Ovoid opacity within the left major fissure likely represents a trace aretha unt of loculated pleural effusion. Diffuse opacity limits evaluation for under lying pulmonary nodule. There is a 2 mm solid nodule in the right upper lobe o n series 3, image 22 and a 3 mm solid nodule in the right lower lobe on image 55. HEART AND MEDIASTINUM: The thyroid gland is normal. There are numerous calcified mediastinal and hilar lymph nodes. Extensive atherosclerotic calc ifications of the thoracic aorta, branch vessels, and coronary arteries. Small pericardial effusion. The esophagus is distended and filled with fluid and ai r in the mid and distal portions. UPPER ABDOMEN: Limited non-contrast views of the upper abdomen show no abnormality within the partially visualized live r, spleen, or adrenal glands. BONES/SOFT TISSUES: No acute osseous abnormal ity. No suspicious lytic or blastic lesions. Degenerative changes of the visua lized spine. IMPRESSION: Small left pleural effusion with patchy opaciti es in the left lower lobe which could represent atelectasis or pneumonia in th e appropriate clinical context. Trace right pleural effusion. Distended esophagus which contains air and fluid within the mid and distal portions. Cor relation for gastroesophageal reflux is advised. The patient may be at risk fo r aspiration. Tiny pulmonary nodules measuring up to 3 mm are likely benign . In a low risk patient, no further follow-up is recommended. If the patient h as a history of smoking or other risk factor for malignancy, an optional chest CT may be considered in 12 months. Sequela of prior granulomatous disea se. Signed by: Dr. Georgie Ordonez MD on 09/02/2018 4:05 PM Dictated By: GEORGIE ORDONEZ MD [id number] Transcr ibed By: DEMOND on 09/02/18 1280 COPY TO: ED SHETTY MD FOOT RIGHT KUBIIXJL8996-06-27 14:22:00 [address] [address] Patient Name: LISA GLASER MR #: [id number] : 1940 Age/Sex: 78/M Req #: [id number] Adm Physician: ED SHETTY MD Ordered by: FUENTES DAVE DPM Report #: [id number] Location: [facility] Room/Bed: 285-1 Procedure: [id number] DX/ FOOT RIGHT COMPLETE Exam Date: 09/02/18 Exam Time: 1 345 REPORT STATUS: Signed Exa m: Right foot radiographs-3 views Clinical History: Comparison: None. Findings: There is dressing material which overlies the fourth toe, somew hat limiting evaluation of the third through fifth digits. No definite acute f racture or malalignment. Soft tissue edema is present within the fourth toe. T here are diffuse atherosclerotic vascular calcifications. There is also soft t issue edema of the first toe. There is deformity of the distal phalanx of the first toe, which may reflect sequela of prior trauma. Impression: Limit ed evaluation of the fourth toe due to overlying bandage material. Soft tissue edema of the fourth toe without definite acute osseous abnormality. If there is clinical suspicion for fourth toe abnormality. Repeat radiograph after maria g latrice of dressing may be obtained. Soft tissue edema of the first toe without evidence of acute fracture. Signed by: Dr. Georgie Ordonez MD on 09/02/2018 2:2 5 PM Dictated By: GEORGIE ORDONEZ MD 1420 Transcribed By: DEMOND on 09/02/18 1422 COPY TO: FUENTES DAVE DPM Hemoglobin A1c [id number] 08:15:00* Test Item Value Reference Range Interpretation Comments Hemoglobin A1c Percent (test code = Hemoglobin A1c Percent) 10.2 4.0-7.0 H [facility] (TSH) 2018-09-02 06:56:00* Test Item Value Reference Range Interpretation Comments Thyroid Stimulating Hormone (TSH) (test code = 48373-0) 2.431 0.350-4.940 [facility]2018-09-01 16:57:00 [place] [address] Patient Name: LISA GLASER MR #: [id number] : 1940 Age/Sex: 78/M Req #: [id number] Adm Physician: ED SHETTY MD Ordered by: ED SHETTY MD Report #: [id number] Location: [facility] Room/Bed: [facility] Procedure: [id number] DX/C HEST SINGLE (PORTABLE) Exam Date: 09/01/18 Exam Time : 1639 REPORT STATUS: Signed Exa mination: Single AP view of the chest. COMPARISON: November 24, 2015 INDICA TION: Low oxygen saturation DISCUSSION: Lines/tubes: None. Lungs: Left lung airspace opacity. Pleura: Small left effusion. Hear t and mediastinum: Prominent heart size. Bones and soft tissues: No acute bony abnormalities. IMPRESSION: 1. Small left effusion and ai rspace opacity, likely atelectasis. Signed by: Dr. Zain Chacon M.D. on 09/01/2018 4:58 PM Dictated By: ZAIN CHACON MD 1656 Transcribed By: DEMOND on 09/01/18 1 658 COPY TO: ED SHETTY MD - XR FOOT 2 VIEWS [id number] 09:12:00 FAX: Fuentes Claire DPM [phone] [place]: St: UNK Name: Rich LISA YOUNG [facility] : [birth year] Age/S: 75/M [address] [facility] Unit #: [id number] Loc: [place] [address] Phys: Fuentes Dave DPM Acct: [id number] Dis Date: Status: UNK PHONE #: [phone] Exam Date: 05/24/2016 0857 FAX #: [phone] Reason: S/P TRANSMETATARSAL AMPUTATION I D WITH FLAP CL EXAMS: CPT CODE: [id number] XR FO[place] [address] [place] [address] HISTORY: Post transmetatarsal ampu tation. COMPARISON: None available. Patient is post transmetatarsal resection. The margins appear sharp. Splint obscures det ail. Vascular locations. Bone mineralization is normal. IMPRESSION: Unremarkable post transmetatarsal resection. at 0912 Reported and signed by: Talat Thorpe M.D. CC: Fuentes Dave DPM Technologist: Noelle Cabezas RT(R); STUDENT TECHNOLOGIST Trntxrd Date/Time/By: (0912) : By: [email or web address] Orig Print D/T: S: 05/24/2016 (6010) PAGE 1 Signed Report - SP AORTOGM ABD [id number] 17:16:00 Name: LISA GLASER [facility] : 1940 Age[facility]S: 75 / M [address] [facility] [id number] Loc: [place] [address] Phys: Manish Shane MD Acct: [id number] Di s Date: Status: UNK PHONE #: Exam Date: 09/11/2015 1410 FAX #: [phone] Reason: EXAMS: CPT CODE: [id number] SP AORTOGM ABD W/FILM 19029 Fluoro Time: 7.3 DAP (Gy m2 ): 31554 Air Kerma (mGy): 331.0 REASON FOR EXAM: Nonhealing ul cer in the left toe EXAM ORDER DATE: 09/11/2015 1:00 PM Referring M.D.: MD Monserrat Anesthesia: General Anesthesiologist: Dr. Lynne PROCEDURE: 1. Aortogram with bilateral lower ex tremities runoff with CO2 2. Angioplasty of high-grade stenosis of the pr oximal left anterior tibial artery FINDINGS: After i nformed consent was obtained, the patient was brought to special procedure s and placed supine on the table. The right groin was prepped and draped i n the usual sterile fashion. All elements of maximal sterile barrier techn ique were followed. 2% local lidocaine was given. A micropunctur e needle was used to access the right common femoral artery and a 5-Monegasque vascular sheath was inserted. An Omni Flush catheter was advanced over t he guidewire into the abdominal aorta. Abdominal aortogram show unremarka ble appearance of the abdominal aorta and iliac arteries. Th e Omni Flush catheter was then used to engage the bifurcation and advanced over a guidewire into the left external iliac artery. A 6-Monegasque vascula r sheath was then inserted. A left lower extremity arteriogram was perfor med with CO2. 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 A guidewire was successfully advanced pa st the stenosis into the distal left anterior tibial artery. Angioplasty was 1st performed with 3 mm followed x 4 mm balloon. Post angioplasty joel wed improvement in inflow with single vessel runoff to the left foot. A p eroneal artery runoff is seen to the left ankle. Angiogram o f the right lower extremity was performed to the 6-Monegasque vascular sheath. It demonstrate no evidence of disease in the SFA. There are 2 vessels r unoff in the anterior tibial and peroneal arteries to the right foot. No intervention performed on the right. 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 Successful angioplasty with patency restored. 2 vessels runoff to the left ankle via the peroneal and anterior tibial arteries. 2 vessels were not on the right via the anterior tibial and peroneal arteries to the right foot. The procedure was performed with CO2 only. No iodine contrast used. at 1716 Reported and signed by: Manish Shane M.D. CC: Jose Alejandro Helm; Maurice German MD Technologist: [facility]IGA [facility] Date/Time: 09/11/2015 (1715) ChrisL Orig Print D/T: S: 09/11/2015 (804) PAGE 2 Signed Report - SP ANGIO EXT [id number] 17:16:00 Name: LISA GLASER [facility] : 1940 Age/S: 75 / M [address] Unit #: [id number] Loc: [place] [address] Phys: Manish Shane MD Acct: [id number] Dis Date: Status: UNK PHONE #: [phone] Exam Date: 09/11/2015 1410 FAX #: [phone] Reason: EXAMS: CPT CODE: [id number] [place] [address] Fluoro Time: DAP (Gy m2): Air Kerma (mGy): REASON FOR EXAM: Nonhealing ulcer in the left toe EXAM ORDER DATE: 09/11/2015 1:00 PM Referring M.D.: MD Monserrat Anesthesia: General Anesthesiologist: Dr. Lynne PROCEDURE: 1. Aortogram with bilateral lower extremities runoff with CO2 2. Angioplasty of high-grade stenosis of the proximal left anterior tibial artery FINDINGS: After informed consent was obtained, the patient was brought to special procedures and placed supine on the table. The right groin was prepped and draped in the usual sterile fashion. All elements of maximal sterile barrier technique were followed. 2% local lidocaine was given. A micropuncture needle was used to access the right common femoral artery and a 5-Monegasque vascular sheath was inserted. An Omni Flush catheter was advanced over t he guidewire into the abdominal aorta. Abdominal aortogram show unremarka ble appearance of the abdominal aorta and iliac arteries. Th e Omni Flush catheter was then used to engage the bifurcation and advanced over a guidewire into the left external iliac artery. A 6-Monegasque vascula r sheath was then inserted. A left lower extremity arteriogram was perfor med with CO2. 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 A guidewire was successfully advanced pa st the stenosis into the distal left anterior tibial artery. Angioplasty was 1st performed with 3 mm followed x 4 mm balloon. Post angioplasty joel wed improvement in inflow with single vessel runoff to the left foot. A p eroneal artery runoff is seen to the left ankle. Angiogram o f the right lower extremity was performed to the 6-Monegasque vascular sheath. It demonstrate no evidence of disease in the SFA. There are 2 vessels r unoff in the anterior tibial and peroneal arteries to the right foot. No intervention performed on the right. 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 Successful angioplasty with patency restored. 2 vessels runoff to the left ankle via the peroneal and anterior tibial arteries. 2 vessels were not on the right via the anterior tibial and peroneal arteries to the right foot. The procedure was performed with CO2 only. No iodine contrast used. at 1716 Reported and signed by: Manish Shane M.D. CC: Jose Alejandro Helm; Maurice German MD Technologist: RENU ZUNIGA Trnscb Date/Time: 09/11/2015 (1716) t.SDR.VTL Orig Print D/T: S: 09/11/2015 (8249) PAGE 2 Signed Report - CT C-SPINE W/O [id number] 11:42:00 Name: LISA GLASER [facility] : 1940 Age/S: 71 / M [address] [facility] Unit #: [id number] Loc: [place] [address] Phys: Ed Archibald MD Acct: [id number] Dis Date: Status: UNK PHONE #: [phone] Exam Date: 11/16/2011 1135 FAX #: [phone] Reason: neck, shoulder pain EXAMS: CPT CODE: [id number] CT C-SPINE W/O CONTRAST 21961 HISTORY: Neck and shoulder pain TECHNIQUE: Axial tomograms through the cervical spine were obtained without intravenous contrast. Sagittal and coronal reformatted images are provided. FINDINGS: Vertebral heights and alignment are maintained. No acute fracture or subluxation. The prevertebral soft tissues are within normal limits. The remaining visualized soft tissues of the neck show no significant abnormalities. Degenerative disc disease and facet arthropathy is present at multiple levels. mucosal thickening is seen of the visualized paranasal sinuses. There is reversal of the normal cervical lordosis which can be seen with muscle spasm or positioning. There is prominent disc bulge osteophyte complex at C2-3. Disc bulge osteophyte complex at C3-4 is present with severe left and moderate right neuroforaminal narrowing. Mild/moderate bilateral neuroforaminal narrowing at C4-5 is present and at C5-6 due to disc bulge osteophyte complexes is seen. IMPRESSION: 1. No acute fracture is seen. 2. There is reversal of the normal cervical lordosis which can be seen with muscle spasm or positioning. 3. Other findings as above. at 1145 Reported and signed by: Eva Christiansen M.D. CC: Technologist:ALLEN FERREIRA MARY LOU CTDI: DLP: Trnscb Date/Time: 11/16/2011 (1145) [email or web address] Orig Print D/T: S: 11/16/2011 (9828) PAGE 1 Signed Report - [facility] ACC[facility] 2004-11-28 16:05:00 Name: LISA GLASER [facility] : 1940 Age/S: 64 / M [address] [facility] Unit #: [id number] Loc: [place] [address] Phys: Js Howard MD Acct: [id number] Dis Date: Status: UNK PHONE #: [phone] Exam Date: 11/28/2004 1526 FAX #: [phone] Reason: EXAMS: CPT CODE: [id number] [facility] ACCESS 71298 Fluoro Time: DAP (Gy m2): Air Kerma (mGy): DICTATED: 11/28/04, 1605 HISTORY: CLOTTED SHUNT, HYPOKALEMIA, NEEDING EMERGENT DIALYSIS. HEMODIALYSIS CATHETER PLACEMENT, 11/28/04: CPT 75403, 44802 IMPRESSION: SUCCESSFUL PLACEMENT OF RIGHT INTERNAL JUGULAR VEIN HEMODIALYSIS CATHETER. FINDINGS: The patient was brought to Special Procedures and placed supine on the table. The right neck was prepped and draped in the usual sterile fashion. 2% local lidocaine was given. A micropuncture needle was then used to access the right internal jugular vein. Next the tract was thoroughly dilated to accept the temporary hemodialysis catheter with the tip positioned at the atriocaval junction. There was good aspiration from the catheter postplacement. The catheter was sutured to subcutaneous tissue and there is no evidence of hemorrhage. [address] at 1938 Reported and signed by: Manish Shane M.D. CC: Js Howard Technologist: DONNELL HOFFMAN) ARMANDO Trntxb Date/Time: 11/29/2004 (0713) Luiz Orig Print D/T: (0837) S: PAGE 1 Signed Report - XR CHEST 2 [id number] 10:46:00 [place]: B St: UNK Name: Rich LISA YOUNG [facility] : [birth year] Age/S: 64/M [address] Unit #: [id number] Loc: [place] [address] Phys: Alecia Marrero MD Acct: [id number] Dis Date: Status: UNK PHONE #: [phone] Exam Date: 11/27/20042215 FAX #: [phone] Reason: OR DAY: 1 EXAMS: CPT CODE: [id number] XR CHEST 2 V 56658 DICTATED: 11/28/04, 1046 H ISTORY: TWO VIEWS OF THE CHEST, 11/28/04 AT 2206 HOURS: COMPARISON: 10/09/04. FINDINGS: Two views of the chest demo nstrate mild cardiomegaly. The pulmonary vasculature is unremarkable. N o consolidation or pleural effusion is seen. Generalized increasing inter stitial markings are seen bilaterally without significant interval changes , consistent with chronic pulmonary scarring. No consolidation or p leural effusion is identified. Osification of the anterior longi tudinal ligament of the visualized portion of the thoracic spine is seen, suggesting diffuse ideopathic skeletal hyperostosis, DISH. IMPRESSION: 1. NO ACUTE CARDIOPULMONARY PROCESS O R ACTIVE DISEASE OF THE CHEST. 2. MILD CARDIOMEGALY. 3. 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 TT/bimal/72044 Electronical ly Signed by The Munir MONTALVO on 11/28/2004 at 2123 Reporte d and signed by: Harrison Amaral MD CC: Technologist: EVA FUNK RT(R) Trnscrd Date/Time/By: 11/28/2004 (1425) : By: v.EDX.BIMAL/t.SDR.TTR Orig P rint D/T: S: 11/28/2004 (2123) PAGE 1 Signed Report - SP CABLE PULLER [id number] 11:39:00 Name: LISA GLASER [facility] : 1940 Age/S: 64 / M [address] Unit #: [id number] Loc: [place] [address] Phys: Js Howard MD Acct: [id number] Dis Date: Status: UNK PHONE #: [phone] Exam Date: 11/09/2004 1146 FAX #: [phone] Reason: IGHT/LEFT? L - LEFT EXAMS: CPT CODE: [id number] SP ANGIO A-V SHUNT 03999 [id number] SP CABLE PULLER VENOUS 76979 [id number] SP CABLE PULLER PERIPH 47438 Fluoro Time: DAP (Gy m2): Air Kerma (mGy): DICTATED: 11/11/04, 1139 CLINICAL INFORMATION: PATIENT WITH END-STAGE RENAL DISEASE PRESENTS WITH A THROMBOSED LEFT FOREARM HEMODIALYSIS GRAFT. (IT RETHROMBOSED AFTER RECENT SURGICAL REVISION) HEMODIALYSIS GRAFT STUDY WITH ADDITIONAL PUNCTURE, CLOT REMOVAL, ANGIOPLASTY OF THE ARTERIAL AND VENOUS ANASTOMOSIS AND VENOGRAM OF THE LEFT UPPER EXTREMITY AND THE CENTRAL VENOUS SYSTEM; CONSCIOUS SEDATION, 11/09/04: CPT 65840 X2, 27234, 67631, 22679, 18572, 08600, 97765, 96768, 77983 PROCEDURE AND FINDINGS: Informed consent was obtained for angiographic evaluation of the left forearm graft and venography of the left upper extremity in the central venous system and for potential insertion of a hemodialysis catheter. Patient was placed supine on the procedure table and his left forearm was prepped and draped in the usual sterile fashion. Conscious sedation was initiated with Versed and Fentanyl. Xylocaine was administered and using sonographic guidance the arterial limb of the graft was accessed in antegrade fashion with a micropuncture system followed by insertion of an .035 Bentson wire and a 6-Monegasque access sheath. The wire and a 5-Monegasque Del Real catheter were then advanced through the stenosed venous anastomosis into the outflowing cephalic vein and its tip was positioned in the central portion of the cephalic vein. Central venography was then performed demonstrating the presence of a patent left subclavian and left brachiocephalic vein and a patent SVC. The left cephalic vein was also patent. A high-grade venous anastomosis was then treated with a 6-mm angioplasty balloon. Subsequently, thrombectomy of the venous limb of the graft was performed with the angiojet device. The venous limb was then accessed in retrograde fashion with a micropuncture system and sonographic guidance f ollowed by insertion of an .035 guide wire and a short 6-Monegasque access she ath. The guide wire and the Del Real catheter were advanced into the brachial artery. Study of the arterial system showed a patent b rachial artery and patent run-off to the forearm. 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 Thrombectomy of the PAGE 1 Signed Report (CONTINUED) Name: VIRGEN GLASER MARGARITOCheyanne DEGROOT [facility] : 1940 Age/S: 64 / M [address] Unit #: [id number] Loc: [place] [address] Phys: Js Howard MD Acct: [id number] Dis Date: Status: UNK PHONE #: [phone] Exam Date: 11/09/2004 1146 FAX #: [phone] Reason: IGHT /LEFT? L - LEFT EXAMS: CPT CODE: [id number] SP ANGIO A-V SHUNT 49261 [id number] SP CABLE PULLER VENOUS 75 978 [id number] SP CABLE PULLER PERIPH 16161 Fluoro Time: DAP (Gy m2): Air Kerma (mGy): < Continued> arterial limb was then performed with the angiojet device followed by angioplasty of the arterial anastomosis with a 5-mm balloon. Sluggish flow was restored. There were multiple residual stenotic areas mostly within the venous limb which were then dilated with a 7-mm high pressure balloon. Thrombectomy of the arterial limb was then also performed with a Tammy catheter and again using the angiojet device in the arterial and venous limb. Excellent flow was restored. Final shunt angiography performed after placing the 5-Monegasque Berstein catheter in the brachial artery showed good inflow through a widely patent arterial anastomosis, widely patent graft and good outflow through the venous anastomosis with a residual 50% stenosis of the venous anastomosis and the adjacent portion of the cephalic vein. The patient had received 1,000 units of heparin prior to angioplasty. Pursestring sutures were placed around the access sheath which were removed and hemostasis was achieved without difficulty. The patient tolerated the procedure well and without apparent complications. IMPRESSION: 1. SUCCESSFUL DECLOT PROCEDURE USING A COMBINATION OF ANGIOPLASTY OF THE ARTERIAL AND VENOUS ANASTOMOSIS WELL OF INTRAGRAFT STENOSIS AND THROMBECTOMY PERFORMED WITH ANGIOJET DEVICE AND A TAMMY CATHETER. 2. THESE PROCEDURES RESULTED IN LATTER-DAY OF GOOD FLOW THROUGH THE GRAFT WITHGOOD INFLOW AND OUTFLOW. 3. RESIDUAL 50% STENOSIS OF THE VENOUS ANASTOMOSIS AND ADJACENT PORTION OF THE CEPHALIC VEIN. 4. OTHERWISE, THE LEFT CEPHALIC VEIN WELL THE LEFT CENTRAL VENOUS SYSTEM IS WIDELY PATENT. 5. THE DUAL OUTFLOW SEEN ON THE PREVIOUS STUDY WAS NOT OBSERVED TODAY. THERE WAS SINGLE AND CONTINUOUS OUTFLOW FROM THE GRAFT INTO THE LEFT CEPHALIC VEIN. PAGE 2 Signed Report (CONTINUED) Name: LISA GLASER [facility] : 1940 Age/S: 64 / M [address] Unit #: [id number] Loc: [place] [address] Phys: Js Leroy MD Acct: [id number] Dis Date: Status: UNK ELYSE NE #: [phone] Exam Date: 11/09/2004 1146 FAX #: [phone] Reason: IGHT/LEFT? L - LEFT EXAMS: CPT CODE: [id number] SP ANGIO A-V SHUNT 36064 [id number] SP CABLE PULLER VENOUS 65656 [id number] SP CABLE PULLER PERIPH 06387 Fluoro Time: DAP (Gy m2): A ir Kerma (mGy): <Continued> 6. BECAUSE OF THE SUCCESSFUL DECLOT PROCEDURE, NO CENTRAL VENOUS HEMODIALYSIS CATHETER WAS INSERTED. #22470/02455 at 1918 Reported by: Nicolas Wagner M.D. Signed by: Nicolas Wagner M.D. CC: Js Howard Technologist: ANA WOODWARD; PEBBLES CASTILLO,RT(R) SP; ... Trnscb Date/Time: 11/11/2004 (1202) Kerrie.NASREEN/tSHAHEEDR.GRW/ElaineX.NASREEN Orig Print D/T: (115) S: PAGE 3 Signed Report - SP ANGIO A-V [id number] 11:39:00 Name: LISA GLASER [facility] : 1940 Age/S: 64 / M [address] Unit #: [id number] Loc: [place] [address] Phys: Js Howard MD Acct: [id number] Dis Date: Status: UNK PHONE #: [phone] Exam Date: 11/09/2004 1146 FAX #: [phone] Reason: IGHT/LEFT? L - LEFT EXAMS: CPT CODE: [id number] SP ANGIO A-V SHUNT 09186 [id number] SP CABLE PULLER VENOUS 91674 [id number] SP CABLE PULLER PERIPH 00703 Fluoro Time: DAP (Gy m2): Air Kerma (mGy): DICTATED: 11/11/04, 1139 CLINICAL INFORMATION: PATIENT WITH END-STAGE RENAL DISEASE PRESENTS WITH A THROMBOSED LEFT FOREARM HEMODIALYSIS GRAFT. (IT RETHROMBOSED AFTER RECENT SURGICAL REVISION) HEMODIALYSIS GRAFT STUDY WITH ADDITIONAL PUNCTURE, CLOT REMOVAL, ANGIOPLASTY OF THE ARTERIAL AND VENOUS ANASTOMOSIS AND VENOGRAM OF THE LE FT UPPER EXTREMITY AND THE CENTRAL VENOUS SYSTEM; CONSCIOUS SEDATION, 08/15: CPT 34236 X2, 33977, 18047, 21529, 58274, 20193, 23309, 51494, 9914 1 PROCEDURE AND FINDINGS: Informed consent was obtained for angiographic evaluation of the left forearm graft and venography of the l eft upper extremity in the central venous system and for potential inserti on of a hemodialysis catheter. Patient was placed supine on the procedure table and his left forearm was prepped and draped in the usual s terile fashion. Conscious sedation was initiated with Versed and Fentanyl . Xylocaine was administered and using sonographic guidance the arterial limb of the graft was accessed in antegrade fashion with a micropuncture system followed by insertion of an .035 Bentson wire and a 6 -Monegasque access sheath. The wire and a 5-Monegasque Del Real catheter were th en advanced through the stenosed venous anastomosis into the outflowing ce phalic vein and its tip was positioned in the central portion of the cepha lic vein. Central venography was then performed demonstrating the presenc e of a patent left subclavian and left brachiocephalic vein and a patent S VC. The left cephalic vein was also patent. A high -grade venous anastomosis was then treated with a 6-mm angioplasty balloon . Subsequently, thrombectomy of the venous limb of the graft was performe d with the angiojet device. The venous limb was then accessed in retrograde fashion with a micropuncture system and sonographic guidance f ollowed by insertion of an .035 guide wire and a short 6-Monegasque access she ath. The guide wire and the Del Real catheter were advanced into the brachial artery. Study of the arterial system showed a patent b rachial artery and patent run-off to the forearm. 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 Thrombectomy of the PAGE 1 Signed Report (CONTINUED) Name: VIRGEN GLASER [facility] : 1940 Age/S: 64 / M [address] Unit #: [id number] Loc: [place] [address] Phys: Js Howard MD Acct: [id number] Dis Date: Status: UNK PHONE #: [phone] Exam Date: 11/09/2004 1146 FAX #: [phone] Reason: IGHT /LEFT? L - LEFT EXAMS: CPT CODE: [id number] SP ANGIO A-V SHUNT 95015 [id number] SP CABLE PULLER VENOUS 75 978 [id number] SP CABLE PULLER PERIPH 97176 Fluoro Time: DAP (Gy m2): Air Kerma (mGy): < Continued> arterial limb was then performed with the angiojet device followed by angioplasty of the arterial anastomosis with a 5-mm balloon. Sluggish flow was restored. There were multiple residual stenotic areas mostly within the venous limb which were then dilated with a 7-mm high pressure balloon. Thrombectomy of the arterial limb was then also performed with a Tammy catheter and again using the angiojet device in the arterial and venous limb. Excellent flow was restored. Final shunt angiography performed after placing the 5-Monegasque Berstein catheter in the brachial artery showed good inflow through a widely patent arterial anastomosis, widely patent graft and good outflow through the venous anastomosis with a residual 50% stenosis of the venous anastomosis and the adjacent portion of the cephalic vein. The patient had received 1,000 units of heparin prior to angioplasty. Pursestring sutures were placed around the access sheath which were removed and hemostasis was achieved without difficulty. The patient tolerated the procedure well and without apparent complications. IMPRESSION: 1. SUCCESSFUL DECLOT PROCEDURE USING A COMBINATION OF ANGIOPLASTY OF THE ARTERIAL AND VENOUS ANASTOMOSIS WELL OF INTRAGRAFT STENOSIS AND THROMBECTOMY PERFORMED WITH ANGIOJET DEVICE AND A TAMMY CATHETER. 2. THESE PROCEDURES RESULTED IN LATTER-DAY OF GOOD FLOW THROUGH THE GRAFT WITHGOOD INFLOW AND OUTFLOW. 3. RESIDUAL 50% STENOSIS OF THE VENOUS ANASTOMOSIS AND ADJACENT PORTION OF THE CEPHALIC VEIN. 4. OTHERWISE, THE LEFT CEPHALIC VEIN WELL THE LEFT CENTRAL VENOUS SYSTEM IS WIDELY PATENT. 5. THE DUAL OUTFLOW SEEN ON THE PREVIOUS STUDY WAS NOT OBSERVED TODAY. THERE WAS SINGLE AND CONTINUOUS OUTFLOW FROM THE GRAFT INTO THE LEFT CEPHALIC VEIN. PAGE 2 Signed Report (CONTINUED) Name: LISA GLASER [facility] : 1940 Age/S: 64 / M [address] [facility] Unit #: [id number] Loc: [place] [address] Phys: Js Leroy MD Acct: [id number] Dis Date: Status: UNK ELYSE NE #: [phone] Exam Date: 11/09/2004 1146 FAX #: Reason: IGHT/LEFT? L - LEFT EXAMS: CPT CODE: [id number] SP ANGIO A-V SHUNT [id number] SP CABLE PULLER VENOUS [id number] SP CABLE PULLER PERIPH 31804 Fluoro Time: DAP (Gy m2): A ir Kerma (mGy): <Continued> 6. BECAUSE OF THE SUCCESSFUL DECLOT PROCEDURE, NO CENTRAL VENOUS HEMODIALYSIS CATHETER WAS INSERTED. #[id number]/02351 at 1918 Reported by: Nicolas Wagner M.D. Signed by: Nicolas Wagner M.D. CC: Js Howard Technologist: ANA WOODWARD; PEBBLES CASTILLO,RT(R) SP; ... Trnscb Date/Time: 11/11/2004 (1202) v.EDX.DRC/t.SDR.GRW/v.EDX.DRToma Orig Print D/T: (1159) S: PAGE 3 Signed Report - SP CABLE PULLER [id number] 11:39:00 Name: LISA GLASER [facility] : 1940 Age/S: 64 / M [address] [facility] Unit #: [id number] Loc: [place] [address] Phys: Js Howard MD Acct: [id number] Dis Date: Status: UNK PHONE #: [phone] Exam Date: 11/09/2004 1146 FAX #: [phone] Reason: IGHT/LEFT? L - LEFT EXAMS: CPT CODE: [id number] SP ANGIO A-V SHUNT [id number] SP CABLE PULLER VENOUS 19406 [id number] SP CABLE PULLER PERIPH 21550 Fluoro Time: DAP (Gy m2): Air Kerma (mGy): DICTATED: 11/11/04, 1139 CLINICAL INFORMATION: PATIENT WITH END-STAGE RENAL DISEASE PRESENTS WITH A THROMBOSED LEFT FOREARM HEMODIALYSIS GRAFT. (IT RETHROMBOSED AFTER RECENT SURGICAL REVISION) HEMODIALYSIS GRAFT STUDY WITH ADDITIONAL PUNCTURE, CLOT REMOVAL, ANGIOPLASTY OF THE ARTERIAL AND VENOUS ANASTOMOSIS AND VENOGRAM OF THE LEFT UPPER EXTREMITY AND THE CENTRAL VENOUS SYSTEM; CONSCIOUS SEDATION, 11/09/04: CPT 39548 X2, 09550, 00996, 62295, 76854, 69117, 20990, 05668, 31097 PROCEDURE AND FINDINGS: Informed consent was obtained for angiographic evaluation of the left forearm graft and venography of the left upper extremity in the central venous system and for potential insertion of a hemodialysis catheter. Patient was placed supine on the procedure table and his left forearm was prepped and draped in the usual s terile fashion. Conscious sedation was initiated with Versed and Fentanyl . Xylocaine was administered and using sonographic guidance the arterial limb of the graft was accessed in antegrade fashion with a micropuncture system followed by insertion of an .035 Bentson wire and a 6 -Monegasque access sheath. The wire and a 5-Monegasque Del Real catheter were th en advanced through the stenosed venous anastomosis into the outflowing ce phalic vein and its tip was positioned in the central portion of the cepha lic vein. Central venography was then performed demonstrating the presenc e of a patent left subclavian and left brachiocephalic vein and a patent S VC. The left cephalic vein was also patent. A high -grade venous anastomosis was then treated with a 6-mm angioplasty balloon . Subsequently, thrombectomy of the venous limb of the graft was performe d with the angiojet device. The venous limb was then accessed in retrograde fashion with a micropuncture system and sonographic guidance f ollowed by insertion of an .035 guide wire and a short 6-Monegasque access she ath. The guide wire and the Del Real catheter were advanced into the brachial artery. Study of the arterial system showed a patent b rachial artery and patent run-off to the forearm. 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 Thrombectomy of the PAGE 1 Signed Report (CONTINUED) Name: VIRGEN GLASER [facility] : 1940 Age/S: 64 / M [address] [facility] Unit #: [id number] Loc: [place] [address] Phys: Js Howard MD Acct: [id number] Dis Date: Status: UNK PHONE #: [phone] Exam Date: 11/09/2004 1146 FAX #: [phone] Reason: IGHT /LEFT? L - LEFT EXAMS: CPT CODE: [id number] SP ANGIO A-V SHUNT [id number] SP CABLE PULLER VENOUS 75 978 [id number] SP CABLE PULLER PERIPH 22079 Fluoro Time: DAP (Gy m2): Air Kerma (mGy): < Continued> arterial limb was then performed with the angiojet device followed by angioplasty of the arterial anastomosis with a 5-mm balloon. Sluggish flow was restored. There were multiple residual stenotic areas mostly within the venous limb which were then dilated with a 7-mm high pressure balloon. Thrombectomy of the arterial limb was then also performed with a Tammy catheter and again using the angiojet device in the arterial and venous limb. Excellent flow was restored. Final shunt angiography performed after placing the 5-Monegasque Berstein catheter in the brachial artery showed good inflow through a widely patent arterial anastomosis, widely patent graft and good outflow through the venous anastomosis with a residual 50% stenosis of the venous anastomosis and the adjacent portion of the cephalic vein. The patient had received 1,000 units of heparin prior to angioplasty. Pursestring sutures were placed around the access sheath which were removed and hemostasis was achieved without difficulty. The patient tolerated the procedure well and without apparent complications. IMPRESSION: 1. SUCCESSFUL DECLOT PROCEDURE USING A COMBINATION OF ANGIOPLASTY OF THE ARTERIAL AND VENOUS ANASTOMOSIS WELL OF INTRAGRAFT STENOSIS AND THROMBECTOMY PERFORMED WITH ANGIOJET DEVICE AND A TAMMY CATHETER. 2. THESE PROCEDURES RESULTED IN LATTER-DAY OF GOOD FLOW THROUGH THE GRAFT WITHGOOD INFLOW AND OUTFLOW. 3. RESIDUAL 50% STENOSIS OF THE VENOUS ANASTOMOSIS AND ADJACENT PORTION OF THE CEPHALIC VEIN. 4. OTHERWISE, THE LEFT CEPHALIC VEIN WELL THE LEFT CENTRAL VENOUS SYSTEM IS WIDELY PATENT. 5. THE DUAL OUTFLOW SEEN ON THE PREVIOUS STUDY WAS NOT OBSERVED TODAY. THERE WAS SINGLE AND CONTINUOUS OUTFLOW FROM THE GRAFT INTO THE LEFT CEPHALIC VEIN. PAGE 2 Signed Report (CONTINUED) Name: LISA GLASER [facility] : 1940 Age[facility]S: 64 / M [address] [facility] [id number] [place] [address] Phys: Js Leroy MD Acct: [id number] Dis Date: Status: UNK ELYSE NE #: [phone] Exam Date: 11/09/2004 1146 FAX #: [phone] Reason: IGHT/LEFT? L - LEFT EXAMS: CPT CODE: [id number] SP ANGIO A-V SHUNT [id number] SP CABLE PULLER VENOUS 46608 [id number] SP CABLE PULLER PERIPH 26457 Fluoro Time: DAP (Gy m2): A ir Kerma (mGy): <Continued> 6. BECAUSE OF THE SUCCESSFUL DECLOT PROCEDURE, NO CENTRAL VENOUS HEMODIALYSIS CATHETER WAS INSERTED. #71042/72061 at 1918 Reported by: Nicolas Wagner M.D. Signed by: Nicolas Wagner M.D. CC: Js Howard Technologist: ANA WOODWARD; PEBBLES CASTILLO,RT(R) SP; ... Trnscb Date/Time: 11/11/2004 (8787) v.EDX.NASREEN/tSHAHEEDR.GRBryce/v.EDX.NASREEN Orig Print D/T: (3714) S: PAGE 3 Signed Report - XR CHEST 2 [id number] 13:53:00 FAX: Jose Alejandro Kirk MD [phone] [place]: O St: [facility] FAX: Js Parikh MD [phone] Name: LISA GLASER [facility] : 1940 Age/S: 64/M [address] #: [id number] Loc: [place] [address] Phys: Js Howard MD Acct: [id number] Dis Date: Status: UNK PHONE #: [phone] Exam Date: 10/09/2004 0932 FAX #: [phone] Reason: OR DAY: 1 EXAMS: CPT CODE: [id number] XR CHEST 2 V 45764 DICTATED: 10/09/04, 1353 CLINICAL HISTORY: RENAL FAILUR E. CHEST TWO VIEWS, 10/09/04: The lungs and pl eural spaces are clear but mildly hyperinflated. Heart size is near the u pper limit of normal or slightly large. Focally advanced thoracic spondyl osis and slight scoliosis are noted. IMPRESSION: 1. MILD CARDIOMEGALY. 2. MILD PULMONARY HYPERINFLATION. /waldemar 72155 at 194 Reported and signed b y: Jacky Irving M.D. CC: Jose Alejandro Helm; Js Howard Technologist: PATRICIA SMITH,RT(R) Trnscrd Date/Time/By: 10/09/2004 (1605) : By: ElaineX.WALDEMAR/rozina.BRADX.WALDEMAR Orig Print D/T: (142) S: 10/15/2004 (1948) PAGE 1 Signed Report - XR CHEST 1 [id number] 13:52:00 FAX: Js Parikh MD [phone] [place]: St: [facility] Name: Rich LISA YOUNG [facility] : [birth year] Age/S: 63/M [address] Unit #: [id number] Loc: [place] [address] Phys: Js Howard MD Acct: [id number] Dis Date: Status: Cemmerce PHONE #: [phone] Exam Date: 06/11/2004 1300 FAX #: [phone] Reason: OR DAY: 1 EXAMS: CPT CODE: [id number] XR CHEST 1 V 13405 DICTATED: 06/11/04, 1352 H ISTORY: CLOTTED GRAFT. FRONTAL VIEW OF THE CHEST, 06/11/04: Frontal view of the chest demonstrating large bore central line on the right with the tip in the superior vena cava. No pneumothorax is no sendy. Mild congestion superimposed with lung scarring is noted. Cardiomeg narcisa and tortuosity and unfolding of the aorta is noted. Degenerative mae ges of the dorsal spine are noted. IMPRESSION: 1. MILD CONGESTION SUPERIMPOSED ON A BACKGROUND OF LUNG SCARRING AND PLEURAL THICKENING. 2. NO PNEUMOTHORAX. 3. LARGE BORE CENTRAL LINE ON THE RIGHT WITH THE TIP IN THE SUPER IOR VENA CAVA. 4. CARDIOMEGALY. #74238 a t 1106 Reported and signed by: Talat Thorpe M.D. CC: Js Hwoard Technologis t: PAULA POSADA R.T.(R) Trnscrd Date/Time/By: 06/11/2004 (1452) : By: Joycelyn/YONATHAN Orig Print D/T: (0838) S: 06/15/2004 (110) PAGE 1 Signed Report - XR CHEST 1 [id number] 18:35:00 FAX: Js Parikh MD [phone] [place]: St: [facility] Name: LISA HERNANDEZ [facility] : [birth year] Age[facility]S: 63/M [address] [facility] #: [id number] Loc: [place] [address] Phys: Js Howard MD Acct: [id number] Dis Date: Status: UNK PHONE #: [phone] Exam Date: 12/04/2003 181 FAX #: [phone] Reason: OR DAY: 1 EXAMS: CPT CODE: [id number] XR CHEST 1 V 16462 DICTATED: 12/04/03, 1835 RE ASON FOR EXAMINATION: END-STAGE RENAL DISEASE. CHEST X-RAY, 12/03, 1811: CPT 92472 Single supine view of the chest shows hypoa erated lungs without evidence of consolidation or effusion. The heart siz e and pulmonary vasculature are unremarkable. There is a right IJ dialysi s catheter with the tip in the region of the SVC. No evidence of pneumoth orax. IMPRESSION: STATUS POST DIALYSIS CATHETER PLACEMENT WITHOUT EVIDENCE OF PNEUMOTHORAX. #14450 at 1913 Reported and signed by: Manish Shane M.D. CC: Js George Technologist: SHAYNE BELTRAN, RT(R),CT Trnscrd Date/Time/By: 12/05/2003 (1617) : By: Tomas Orig Print D/T: S: 12/05/2003 (1912) PAGE 1 Signed Report - SP CABLE PULLER [id number] 11:18:00 Name: LISA GLASER [facility] : 1940 Age[facility]S: 63 / M [address] [facility]: [id number] Loc: [place] [address] Phys: Nicolas Wagner MD Acct: [id number] Dis Date: Status: UNK PHONE #: [phone] Exam Date: 12/02/2003 1548 FAX #: [phone] Reason: EXAMS: CPT CODE: [id number] SP VENOCAVAGM SUP 35039 [id number] SP ANGIO A-V SHUNT 20399 [id number] SP CABLE PULLER VENOUS 01901 [id number] SP CABLE PULLER PERIPH 31885 Fluoro Time: DAP (Gy m2): Air Kerma (mGy): DICTATED: 12/04/03, 1118 CLINICAL INFORMATION: PATIENT WITH END-STAGE RENAL DISEASE PRESENTS WITH A THROMBOSED LEFT FOREARM HEMODIALYSIS GRAFT. THE GRAFT WAS PLACED 1.5 YEARS AGO AND HAS BEEN FUNCTIONING WELL UNTIL RECENT THROMBOSIS. HEMODIALYSIS FISTULOGRAM WITH ADDITIONAL PUNCTURE, CLOT REMOVAL, ANGIOPLASTY OF THE ARTERIAL AND VENOUS ANASTOMOSIS AND CENTRAL (SVC) VENOGRAM: CPT 81309 x2, 42288, 05869, 10088, 99533, 33379, 02353, 32908 PROCEDURE AND FINDINGS: After obtaining informed consent the patient was placed supine on the procedure table and his left arm and forearm were prepped and draped in the usual sterile fashion. Xylocaine was administered over the arterial and venous limb of the graft and both limbs were accessed with a micropuncture system followed by insertion of 0.035 guidewires and 6-Monegasque vascular access sheath. The venous limb was positioned medially and the arterial limb laterally (on the radial side of the forearm). A 5-Monegasque [employer] Solartein catheter was advanced over a Telljason wire into the central aspect of the left cephalic vein and central venography was performed. The SVC, left brachiocephalic and left subclavian veins were patent. The cephalic vein was also patent but showed severe spasm in its mid and distal portion . The catheter was then pulled back to the venous anastomosis of the chris t and further venography demonstrated dual outflow via the cephalic vein a nd also a deep brachial vein. A high grade stenosis of the venous anastomosis was noticed and in addition there were stenoses within the venous limb of the graft. These were treated with a 6 mm high pressu re angioplasty balloon followed by thrombectomy of the venous limb with th e angiojet device. Subsequently arteriography was performed and showed a patent brachial artery. Thrombectomy of the arterial limb was then perfor med with the arthrectomy device followed by angioplasty of the arterial an astomosis with a 6 mm balloon. Sluggish flow was restored with these camille uvers. Additional angioplasty of intragraft stenosis and additional thrombectomy of the graft as well as of the venous outflow was performed a fter obtaining a third access at the apex of the graft. Eventually, good inflow and outflow through a widely patent graft was restored. PAGE 1 Signed Report (CONTINUED) Name: LISA DEL RIO [facility] : [birth year] Age/S: 63 / M [address] Unit #: [id number] Loc: [place] [address] Phys: Nicolas Wagner Acct: [id number] Dis Date: Status: UNK PHONE #: Exam Date: 12/02/2003 1548 FAX #: [phone] Re ason: EXAMS: CPT CODE: [id number] SP VENOCAVAGM SUP [id number] SP ANGIO A-V SHUNT 39503 [id number] SP CABLE PULLER VENOUS 75 978 [id number] SP CABLE PULLER PERIPH 10507 Fluoro Time: DAP (Gy m2): Air Kerma (mGy): < Continued> Purse string sutures were placed and the access sheaths were removed. The patient tolerated the procedure well and there were no apparent complications. IMPRESSION: 1. PATENT CENTRAL VENOUS OUTFLOW. 2. DUAL VENOUS OUTFLOW OF THE GRAFT VIA THE CEPHALIC VEIN AND DEEP BRACHIAL VEIN. 3. SUCCESSFUL DECLOT PROCEDURE USING A COMBINATION OF ANGIOJET-THROMBECTOMY AND BALLOON ANGIOPLASTY OF THE ARTERIAL AND VENOUS ANASTOMOSIS. #69092 at 0949 Reported by: Nicolas Wagner M.D. Signed by: Nicolas Wagner M.D. CC: Jose Alejandro Helm; Navid Hses MD Technologist: RIKKI LAURENT, RT(R) SP; ... Trnscb Date/Time: 12/04/2003 (2099) v.EDX.TLB/t.SDR.GRW Orig Print D/T: S: 12/05/2003 (0949) PAGE 2 Signed Report - SP CABLE PULLER [id number] 11:18:00 Name: LISA GLASER [facility] : 1940 Age/S: 63 / M [address] Unit #: [id number] Loc: [place] [address] Phys: Nicolas Wagner MD Acct: [id number] Dis Date: Status: UNK PHONE #: [phone] Exam Date: 12/02/2003 1548 FAX #: [phone] Reason: EXAMS: CPT CODE: [id number] SP VENOCAVAGM SUP 14714 [id number] SP ANGIO A-V SHUNT 72483 [id number] SP CABLE PULLER VENOUS 36684 [id number] SP CABLE PULLER PERIPH 06600 Fluoro Time: DAP (Gy m2): Air Kerma (mGy): DICTATED: 12/04/03, 1118 CLINICAL INFORMATION: PATIENT WITH END-STAGE RENAL DISEASE PRESENTS WITH A THROMBOSED LEFT FOREARM HEMODIALYSIS GRAFT. THE GRAFT WAS PLACED 1.5 YEARS AGO AND HAS BEEN FUNCTIONING WELL UNTIL RECENT THROMBOSIS. HEMODIALYSIS FISTULOGRAM WITH ADDITIONAL PUNCTURE, CLOT REMOVAL, ANGIOPLASTY OF THE ARTERIAL AND VENOUS ANASTOMOSIS AND CENTRAL (SVC) VENOGRAM: CPT 35223 x2, 87973, 03400, 51061, 32015, 17251, 81733, 03714 PROCEDURE AND FINDINGS: After obtaining informed consent the patient was placed supine on the procedure table and his left arm and forearm were prepped and draped in the usual sterile fashion. Xylocaine was administered over the arterial and venous limb of the graft and both limbs were accessed with a micropuncture system followed by insertion of 0.035 guidewires and 6-Monegasque vascular access sheath. The venous limb was positioned medially and the arterial limb laterally (on the radial side of the forearm). A 5-Monegasque [employer] Solartein catheter was advanced over a Bentson wire into the central aspect of the left cephalic vein and central venography was performed. The SVC, left brachiocephalic and left subclavian veins were patent. The cephalic vein was also patent but showed severe spasm in its mid and distal portion . The catheter was then pulled back to the venous anastomosis of the chris t and further venography demonstrated dual outflow via the cephalic vein a nd also a deep brachial vein. A high grade stenosis of the venous anastomosis was noticed and in addition there were stenoses within the venous limb of the graft. These were treated with a 6 mm high pressu re angioplasty balloon followed by thrombectomy of the venous limb with th e angiojet device. Subsequently arteriography was performed and showed a patent brachial artery. Thrombectomy of the arterial limb was then perfor med with the arthrectomy device followed by angioplasty of the arterial an astomosis with a 6 mm balloon. Sluggish flow was restored with these camille uvers. Additional angioplasty of intragraft stenosis and additional thrombectomy of the graft as well as of the venous outflow was performed a fter obtaining a third access at the apex of the graft. Eventually, good inflow and outflow through a widely patent graft was restored. PAGE 1 Signed Report (CONTINUED) Name: LISA DEL RIO [facility] : [birth year] Age/S: 63 / M [address] Unit #: [id number] Loc: [place] [address] Phys: Nicolas Wagner Acct: [id number] Dis Date: Status: UNK PHONE #: Exam Date: 12/02/2003 1548 FAX #: [phone] Re ason: EXAMS: CPT CODE: [id number] SP VENOCAVAGM SUP 31433 [id number] SP ANGIO A-V SHUNT 20250 [id number] SP CABLE PULLER VENOUS 75 978 [id number] SP CABLE PULLER PERIPH 38815 Fluoro Time: DAP (Gy m2): Air Kerma (mGy): < Continued> Purse string sutures were placed and the access sheaths were removed. The patient tolerated the procedure well and there were no apparent complications. IMPRESSION: 1. PATENT CENTRAL VENOUS OUTFLOW. 2. DUAL VENOUS OUTFLOW OF THE GRAFT VIA THE CEPHALIC VEIN AND DEEP BRACHIAL VEIN. 3. SUCCESSFUL DECLOT PROCEDURE USING A COMBINATION OF ANGIOJET-THROMBECTOMY AND BALLOON ANGIOPLASTY OF THE ARTERIAL AND VENOUS ANASTOMOSIS. #83878 at 0949 Reported by: Nicolas Wagner M.D. Signed by: Nicolas Wagner M.D. CC: Jose Alejandro Helm; Navid Hess MD Technologist: RIKKI LAURENT, RT(R) SP; ... Trnscb Date/Time: 12/04/2003 (2099) v.DENNIS.TLB/t.KATHLEEN.SON Orig Print D/T: S: 12/05/2003 (0949) PAGE 2 Signed Report - VENOCAVAGM [id number] 11:18:00 Name: LISA GLASER [facility] SP : 1940 Age/S: 63 / M [address] Unit #: [id number] Loc: [place] [address] Phys: Nicolas Wagner MD Acct: [id number] Dis Date: Status: UNK PHONE #: [phone] Exam Date: 12/02/2003 1548 FAX #: [phone] Reason: EXAMS: CPT CODE: [id number] SP VENOCAVAGM SUP 00927 [id number] SP ANGIO A-V SHUNT 38373 [id number] SP CABLE PULLER VENOUS 35752 [id number] SP CABLE PULLER PERIPH 03754 Fluoro Time: DAP (Gy m2): Air Kerma (mGy): DICTATED: 12/04/03, 1118 CLINICAL INFORMATION: PATIENT WITH END-STAGE RENAL DISEASE PRESENTS WITH A THROMBOSED LEFT FOREARM HEMODIALYSIS GRAFT. THE GRAFT WAS PLACED 1.5 YEARS AGO AND HAS BEEN FUNCTIONING WELL UNTIL RECENT THROMBOSIS. HEMODIALYSIS FISTULOGRAM WITH ADDITIONAL PUNCTURE, CLOT REMOVAL, ANGIOPLASTY OF THE ARTERIAL AND VENOUS ANASTOMOSIS AND CENTRAL (SVC) VENOGRAM: CPT 39452 x2, 64355, 15906, 74037, 19240, 61762, 89391, 09263 PROCEDURE AND FINDINGS: After obtaining informed consent the patient was placed supine on the procedure table and his left arm and forearm were prepped and draped in the usual sterile fashion. Xylocaine was administered over the arterial and venous limb of the graft and both limbs were accessed with a micropuncture system followed by insertion of 0.035 guidewires and 6-Monegasque vascular access sheath. The venous limb was positioned medially and the arterial limb laterally (on the radial side of the forearm). A 5-Monegasque [facility] was advanced over a Bentson wire into the central aspect of the left cephalic vein and central venography was performed. The SVC, left brachiocephalic and left subclavian veins were patent. The cephalic vein was also patent but showed severe spasm in its mid and distal portion . The catheter was then pulled back to the venous anastomosis of the chris t and further venography demonstrated dual outflow via the cephalic vein a nd also a deep brachial vein. A high grade stenosis of the venous anastomosis was noticed and in addition there were stenoses within the venous limb of the graft. These were treated with a 6 mm high pressu re angioplasty balloon followed by thrombectomy of the venous limb with th e angiojet device. Subsequently arteriography was performed and showed a patent brachial artery. Thrombectomy of the arterial limb was then perfor med with the arthrectomy device followed by angioplasty of the arterial an astomosis with a 6 mm balloon. Sluggish flow was restored with these camille uvers. Additional angioplasty of intragraft stenosis and additional thrombectomy of the graft as well as of the venous outflow was performed a fter obtaining a third access at the apex of the graft. Eventually, good inflow and outflow through a widely patent graft was restored. PAGE 1 Signed Report (CONTINUED) Name: LISA DEL RIO [facility] : [birth year] Age/S: 63 / M [address] [facility] Unit #: [id number] Loc: [place] [address] Phys: Nicolas Wagner Acct: [id number] Dis Date: Status: UNK PHONE #: Exam Date: 12/02/2003 1548 FAX #: [phone] Re ason: EXAMS: CPT CODE: [id number] SP VENOCAVAGM SUP 21424 [id number] SP ANGIO A-V SHUNT 79270 [id number] SP CABLE PULLER VENOUS 75 978 [id number] SP CABLE PULLER PERIPH 79460 Fluoro Time: DAP (Gy m2): Air Kerma (mGy): < Continued> Purse string sutures were placed and the access sheaths were removed. The patient tolerated the procedure well and there were no apparent complications. IMPRESSION: 1. PATENT CENTRAL VENOUS OUTFLOW. 2. DUAL VENOUS OUTFLOW OF THE GRAFT VIA THE CEPHALIC VEIN AND DEEP BRACHIAL VEIN. 3. SUCCESSFUL DECLOT PROCEDURE USING A COMBINATION OF ANGIOJET-THROMBECTOMY AND BALLOON ANGIOPLASTY OF THE ARTERIAL AND VENOUS ANASTOMOSIS. #87623 at 0949 Reported by: Nicolas Wagner M.D. Signed by: Nicolas Wagner M.D. CC: Jose Alejandro Helm; Navid Hess MD Technologist: RIKKI LAURENT, RT(R) SP; ... Trnscb Date/Time: 12/04/2003 (2100) v.EDX.TLB/t.SDR.GRW Orig Print D/T: S: 12/05/2003 (0949) PAGE 2 Signed Report - SP ANGIO A-V [id number] 11:18:00 Name: LISA GLASER [facility] : 1940 Age[facility]S: 63 / M [address] [facility] #: [id number] Loc: [place] [address] Phys: Nicolas Wagner MD Acct: [id number] Dis Date: Status: UNK PHONE #: [phone] Exam Date: 12/02/2003 1546 FAX #: [phone] Reason: EXAMS: CPT CODE: [id number] SP VENOCAVAGM SUP 39570 [id number] SP ANGIO A-V SHUNT 09116 [id number] SP CABLE PULLER VENOUS 18906 [id number] SP CABLE PULLER PERIPH 61531 Fluoro Time: DAP (Gy m2): Air Kerma (mGy): DICTATED: 12/04/03, 1118 CLINICAL INFORMATION: PATIENT WITH END-STAGE RENAL DISEASE PRESENTS WITH A THROMBOSED LEFT FOREARM HEMODIALYSIS GRAFT. THE GRAFT WAS PLACED 1.5 YEARS AGO AND HAS BEEN FUNCTIONING WELL UNTIL RECENT THROMBOSIS. HEMODIALYSIS FISTULOGRAM WITH ADDITIONAL PUNCTURE, CLOT REMOVAL, ANGIOPLASTY OF THE ARTERIAL AND VENOUS ANASTOMOSIS AND CENTRAL (SVC) VENOGRAM: CPT 62313 x2, 92152, 28268, 62424, 21336, 33094, 35681, [address] PROCEDURE AND FINDINGS: After obtaining informed consent the patient was placed supine on the procedure table and his left arm and forearm were prepped and draped in the usual sterile fashion. Xylocaine was administered over the arterial and venous limb of the graft and both limbs were accessed with a micropuncture system followed by insertion of 0.035 guidewires and 6-Monegasque vascular access sheath. The venous limb was positioned medially and the arterial limb laterally (on the radial side of the forearm). A 5-Monegasque Innotech Solartein catheter was advanced over a Bentson wire into the central aspect of the left cephalic vein and central venography was performed. The SVC, left brachiocephalic and left subclavian veins were patent. The cephalic vein was also patent but showed severe spasm in its mid and distal portion . The catheter was then pulled back to the venous anastomosis of the chris t and further venography demonstrated dual outflow via the cephalic vein a nd also a deep brachial vein. A high grade stenosis of the venous anastomosis was noticed and in addition there were stenoses within the venous limb of the graft. These were treated with a 6 mm high pressu re angioplasty balloon followed by thrombectomy of the venous limb with th e angiojet device. Subsequently arteriography was performed and showed a patent brachial artery. Thrombectomy of the arterial limb was then perfor med with the arthrectomy device followed by angioplasty of the arterial an astomosis with a 6 mm balloon. Sluggish flow was restored with these camille uvers. Additional angioplasty of intragraft stenosis and additional thrombectomy of the graft as well as of the venous outflow was performed a fter obtaining a third access at the apex of the graft. Eventually, good inflow and outflow through a widely patent graft was restored. PAGE 1 Signed Report (CONTINUED) Name: LISA DEL RIO [facility] : [birth year] Age/S: 63 / M [address] [facility] Unit #: [id number] [place] [address] Phys: Nicolas Wagner Acct: [id number] Dis Date: Status: UNK PHONE #: Exam Date: 12/02/2003 1548 FAX #: [phone] Re ason: EXAMS: CPT CODE: [id number] SP VENOCAVAGM SUP [id number] SP ANGIO A-V SHUNT 50096 [id number] SP CABLE PULLER VENOUS 75 978 [id number] SP CABLE PULLER PERIPH 50812 Fluoro Time: DAP (Gy m2): Air Kerma (mGy): < Continued> Purse string sutures were placed and the access sheaths were removed. The patient tolerated the procedure well and there were no apparent complications. IMPRESSION: 1. PATENT CENTRAL VENOUS OUTFLOW. 2. DUAL VENOUS OUTFLOW OF THE GRAFT VIA THE CEPHALIC VEIN AND DEEP BRACHIAL VEIN. 3. SUCCESSFUL DECLOT PROCEDURE USING A COMBINATION OF ANGIOJET-THROMBECTOMY AND BALLOON ANGIOPLASTY OF THE ARTERIAL AND VENOUS ANASTOMOSIS. #[id number] at 0949 Reported by: Nicolas Wagner M.D. Signed by: Nicolas Wagner M.D. CC: Jose Aleajndro Helm; Navid Hess MD Technologist: RIKKI LAURENT, RT(R) SP; ... Trnscb Date/Time: 12/04/2003 (2100) v.EDX.TLB/t.SDR.GRW Orig Print D/T: S: 12/05/2003 (2602) PAGE 2 Signed Report - XR CHEST 1 [id number] 11:19:00 FAX: Jose Alejandro Kirk MD [phone] [place]: St: [facility] FAX: Js Parikh MD [phone] Name: LISA GLASER [facility] : 1940 Age/S: 61/M [address] [facility] Unit #: [id number] Loc: [place] [address] Phys: Js Howard MD Acct: [id number] Dis Date: Status: UNK PHONE #: [phone] Exam Date: 03/02/2002829 FAX #: [phone] Reason: ONS: PACU 4 EXAMS: CPT CODE: [id number] XR CHEST 1 V 10371 DICTATED: 03/02/02, 1119 HISTORY: FRONTAL VIEW OF CHEST, 03/02/02: Frontal view of the chest obt ained portably at 1224 a.m. compared to the previous study of 15 February dem onstrating a large bore central line from right approach with the tip in t he superior vena cava. No pneumothorax is noted. Mild generalized lung s carring is noted. Suboptimal inspiratory effort is noted which results in crowding of bronchovascular markings. The cardiac silhouette is within normal limits. Mild tortuosity and unfolding of the aorta is noted. IMPRESSION: NO ACUTE INFILTRATES, EFFUSION OR CONGESTION. #[id number] at 1240 Reported and signed by: Talat Thorpe M.D. CC: Jose Alejandro Helm; Js Howard aumark Technologist: PAULA POSADA R.T.(R) Trnscrd Date/Time/By: 03/02/2002 (3656) : By: Ashish PAGE 1 Signed Report - US EXTREM NON [id number] 08:43:00 Name: LISA GLASER [facility] : 1940 Age/S: 61 / M [address] Unit #: [id number] Loc: [place] [address] Phys: Maninder Hardin MD Acct: [id number] Dis Date: Status: UNK PHONE #: [phone] Exam Date: 02/23/2002 1000 FAX #: [phone] Reason: EXAMS: CPT CODE: [id number] US EXTREM NON VASC [id number] DICTATED: 02/27/02, 0843 CLINICAL INFORMATION: PATIENT IS STATUS POST PLACEMENT OF LEFT FOREARM GRAFT AND PRESENTS WITH CELLULITIS. HE HAS BEEN REFERRED FOR ULTRASOUND AND POSSIBLE FLUID ASPIRATION. ULTRASOUND OF THE LEFT FOREARM, 02/23/02: [id number] FINDINGS: The graft was widely patent with good flow as determined by color Doppler ultrasound. Tissues surrounding the graft is sonographically unremarkable without evidence of a localized fluid collection or of significant inflammatory changes. No needle aspiration was performed. IMPRESSION: 1. PATENT GRAFT WITHOUT SIGNIFICANT ABNORMALITIES OF SURROUNDING SOFT TISSUES BY ULTRASOUND. 2. NO EVIDENCE OF ABSCESS FORMATION. #[id number] at 1850 Reported by: Nicolas Wagner M.D. Signed by: Nicolas Wagner M.D. CC: Jose Alejandro Helm; Js Howard; Maninder Hardin MD Technologist: ELISE WONG RT(R),RDMS Tr nscb Date/Time: 02/27/2002 (0902) Ashish/EugenioGRW PAGE 1 Signed Report - XR CHEST 1 V 2002-02-16 09:47:00 [place]: B St: UNK Name: LISA HERNANDEZ [facility] : [birth year] Age/S: 61/M [address] Unit #: [id number] Loc: [place] [address] Phys: Tika Encinas Acct: [id number] Dis Date: Status: UNK PHONE #: [phone] Exam Date: 02/15/2002924 FAX #: [phone] Reason: ONS: EXAMS: CPT CODE: [id number] XR CHEST 1 V 07983 DICTATED: 02/16/02, 09 HI STORY: PORTABLE CHEST ONE VIEW, 10:19 A.M., 02/15/02: CP T CODE 02052 There is no evidence of active disease involving the lungs, pleura, or mediastinum. The heart size is near the upper limit of normal. Thoracic spondylosis is noted. IMPRESSION: NO ACTIVE CARDIOPULMONARY FINDINGS. at 1309 Reported and signed by: Lawrence Zaldivar C: Technologist: STUDENT TECHNOLOGIST; JACKIE BIGGS R.T.(R) Trnscrd Date/Time/By: 02/16/2002 (1434) : By: EvetteGXE PAGE 1 Signed Report - XR CHEST 2 [id number] 09:22:00 FAX: Jose Alejandro Kirk MD [phone] [place]: O St: UNK FAX: Js Parikh MD [phone] Name: LISA GLASER [facility] : 1940 Age/S: 61/M [address] [facility] Unit #: [id number] Loc: [place] [address] Phys: Js Howard MD Acct: [id number] Dis Date: Status: UNK PHONE #: [phone] Exam Date: 02/09/2002 1607 FAX #: [phone] Reason: ONS: EXAMS: CPT CODE: [id number] XR CHEST 2 V 85557 DICTATED: 02/10/02, 921 HISTORY: CHEST TWO VIEWS 1601 HOURS, 02/09/02: [id number] The lungs and ple ural spaces are clear but mildly hyperinflated. Heart size is near the up per limit of normal. Focally advanced spondylosis is present. IMPRESSION: NO ACTIVE CARDIPULMONARY FINDINGS. NO COMPARISON EXAM SUBMITTED. #[id number] Haley gonzalez Signed by Lawrence Irving on 02/16/2002 at 1147 R eported and signed by: Jacky Irving M.D. CC: Jose Alejandro Helm; Js Howard Technologist: IZABEL MAYA Trntxrd Date/Time/By: 02/10/2002 (1031) : By: jason HADDAD PAGE 1 Signed Report
--- OUTSIDE RECORDS SUMMARY | 2020-02-07 21:32 | XMS REPORT | Continuity of Care Document ---
Author Author [facility] t Organization [facility] Address [address] [place] [address] Phone Unavailable Care Team Providers Care Viscosity Worker Name Role Phone HILDA MONTALVO, MD LIN PCP ED SHETTY Attphys Unavailable FUENTES DAVE Attphys Unavailable ED SHETTY Admphyjessi Unavailable Payers Payer Name Policy Type Policy Number Effective Date Expiration Date Jessi steward [facility] [id number] 2019 00:00:00 [facility] Cdc Review Covid19 [id number] 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 of toe of right foot Problem Active [facility] Urinary tract infection Problem Active [facility] Allergies, Adverse Reactions, Alerts Allergy Name Allergy Type Status Severity Reaction(s) Onset Date Inacti ve Date Treating Clinician Comments Source No Known Allergies DA Active U 2019-11-03 00:00:00 [facility] No Known Allergies DA Active U 2016-05-24 00:00:00 [facility] Social History Social Habit Start Date Stop Date Quantity Comments Source Sex Assigned At 1940 00:00:00 1940 00:00:00 Male [facility] Medications Ordered Medication Name Filled Medication Name Start Date Stop Da te Current Medication? Ordering Clinician Indication Dosage Frequency Signature (SIG) Comments Components Source Alendronate Sodium Alendronate Sodium Yes 70 Us e As Directed [facility] Calcium Carbonate (Tums) 200 Mg TAB.CHEW Calcium Carbo pati (Tums) 200 Mg TAB.CHEW Yes Daily [facility] Cholecalciferol (Vitamin D3) (Vitamin D3) 1,000 Unit T ABLET Cholecalciferol (Vitamin D3) (Vitamin D3) 1,000 Unit TABLET Yes 2 Daily [facility] Cyclosporine Cyclosporine Yes 25 Twice A Day [facility] Insulin Aspart (Novolog) 100 Unit/1 Ml CARTRIDGE Insul in Aspart (Novolog) 100 Unit/1 Ml CARTRIDGE Yes Three Times Daily With Meals [facility] Insulin Detemir (Levemir) 100 Unit/1 Ml VIAL Insulin D etemir (Levemir) 100 Unit/1 Ml VIAL Yes Bedtime [facility] Losartan Potassium Losartan Potassium Yes 25 Da gwendolyn [facility] Metoprolol Succinate Metoprolol Succinate Yes 100 Twice A Day [facility] Nifedipine Nifedipine Yes 90 Daily [facility] [place]-3 Fatty Acids ([place]-3) 1,000 Mg CAPSULE [place]-3 Fatty Acids ([place]-3) 1,000 Mg CAPSULE Yes 300 Daily [facility] Pravastatin Sodium Pravastatin Sodium Yes 10 Be dtime [facility] Prednisone Prednisone Yes 5 Daily [facility] Sirolimus (Rapamune) 1 Mg TABLET Sirolimus (Rapamune) 1 Mg TABLET Yes 1 Daily [facility] Sulfamethoxazole/Trimethoprim (Sulfamethoxazole-Tmp Ds Tablet) 1 Each TABLET Sulfamethoxazole/Trimethoprim (Sulfamethoxazole-Tmp Ds Tablet) 1 Each TABLET Yes 1 Daily [facility] Torsemide Torsemide Yes 10 Twice A Day [facility] Acetaminophen With Codeine (Tylenol With Codeine #3 Ta blet) 1 Each TABLET Acetaminophen With Codeine (Tylenol With Codeine #3 Tablet) 1 Each TABLET 2018-10-19 00:00:00 No 300 Every 6 Hours as nee ded for Pain [facility] Calcium Carbonate (Tums) 300 Mg TAB.CHEW Calcium Carbo pati (Tums) 300 Mg TAB.CHEW 2018-10-19 00:00:00 No 2 Daily [facility] Ciprofloxacin Hcl (Cipro) 500 Mg TABLET Ciprofloxacin Hcl (C ipro) 500 Mg TABLET 2018-10-19 00:00:00 No 500 Twice A Day [facility] Clindamycin Hcl Clindamycin Hcl 2018-10-19 00:00:00 No 300 Three Times A Day [facility] Famotidine Famotidine 2018-10-19 00:00:00 No 20 Loli ly [facility] Insulin Glargine (Lantus 3ML Pen) 100 Units/1 Ml INJ I nsulin Glargine (Lantus 3ML Pen) 100 Units/1 Ml INJ 2018-10-19 00:00:00 No 25 Daily [facility] [place]-3 Fatty Acids ([place]-3) 1,000 Mg CAPSULE [place]-3 Fatty Acids ([place]-3) 1,000 Mg CAPSULE 2018-10-19 00:00:00 No 1000 Twice A Day [facility] Ondansetron Hcl (Zofran*) 4 Mg TABLET Ondansetron Hcl (Zofran*) 4 Mg TABLET 2018-10-19 00:00:00 No 4 Every 4 Ho urs as needed for Nausea And Vomiting [facility] Sulfamethoxazole/Trimethoprim (Bactrim Ds Tablet) 1 Ea ch TABLET Sulfamethoxazole/Trimethoprim (Bactrim Ds Tablet) 1 Each TABLET 2018-09-16 00:00:00 No 1 Bedtime [facility] Aspirin Aspirin 2016-01-26 00:00:00 No 81 Daily [facility] Cefepime Hcl Cefepime Hcl 2016-01-26 00:00:00 No 1 [facility] Insulin Detemir (Levemir) 100 Unit/1 Ml VIAL Insulin D etemir (Levemir) 100 Unit/1 Ml VIAL 2016-01-26 00:00:00 No 100 [facility] Insulin Glargine (Lantus 3ML Pen) 100 Units/1 Ml INJ I nsulin Glargine (Lantus 3ML Pen) 100 Units/1 Ml INJ 2016-01-26 00:00:00 No 10 Before Supper [facility] Losartan Potassium (Cozaar) 25 Mg TABLET Losartan Pota ssium (Cozaar) 25 Mg TABLET 2016-01-26 00:00:00 No 25 Daily [facility] [place]-3 Fatty Acids ([place]-3) 1,000 Mg CAPSULE [place]-3 Fatty Acids ([place]-3) 1,000 Mg CAPSULE 2016-01-26 00:00:00 No 1000 Daily [facility] Oxycodone Hcl/Acetaminophen (Percocet 5-325 Mg Tablet) 1 Each TABLET Oxycodone Hcl/Acetaminophen (Percocet 5-325 Mg Tablet) 1 Each TABLET 2016-01-26 00:00:00 No 1 Every 6 Hours as needed for Pain [facility] Smz-Tmp Smz-Tmp 2016-01-26 00:00:00 No 400 Daily [facility] Vancomycin Hcl Vancomycin Hcl 2016-01-26 00:00:00 No 1 [facility] Zinc Acetate/Meadowsweet/Screven (Amerigel Wound Dressing Gel) 28.3 Gm GEL..GRAM. Zinc Acetate/Meadowsweet/Screven (Amerigel Wound Dressing Gel) 28.3 Gm GEL..GRAM. 2016-01-26 00:00:00 No [facility] Vital Signs Vital Name Observation Time Observation Value Comments Source Body Temperature 2020-01-04 11:29:00 98.2 [degF] [facility] Weight 2020-01-02 01:12:00 156.50 [lb_av] [facility] BMI (Body Mass Index) 2020-01-02 01:12:00 26.0 kg/m2 [facility] Procedures Procedure Date / Time Performed Performing Clinician Concepción silva CT of abdomen and pelvis without contrast 2019-12-28 00:00:00 [facility] Computed tomography of chest without contrast 2019-12-28 00:00:0 0 [facility] DETACHMENT AT RIGHT LOWER LEG, MID, OPEN APPROACH 2019-10-25 00: 00:00 [facility] INSERTION OF INFUSION DEV INTO SUP VENA CAVA, PERC APPROACH 2019-10-22 00:00:00 [facility] FLUOROSCOPY OF AORTA, BI LE ART USING L OSM CONTRAST 2019-10-22 00:00:00 [facility] Ultrasound, renal 2019-10-20 00:00:00 [facility] Plan of Care Planned Activity Planned Date Details Comments Source Instructions Urinary Tract Infection - Men [facility] Encounters Start Date/Time End Date/Time Encounter Type Admission Type Attendi [facility] Emergency [facility] Facility Care Department Encounter ID Source 2019-12-28 16:56:00 2020-01-04 13:46:00 Discharged Inpatient 1 DIOGENES [facility] [id number] [facility] 2019-10-17 11:48:00 2019-11-03 01:00:00 Discharged Inpatient 1 DIOGENES [facility] [id number] [facility] 2018-08-31 21:43:00 2018-09-16 12:25:00 Discharged Inpatient 1 DIOGENES [facility] [id number] [facility] Results Test Description Test Time Test Comments Results Result Comments Source Capillary blood glucose measurement by glucometer (mas s/volume) 2020-01-04 10:16:00 Test Item Bedside Glucose (test code = 45337-6) 86 70-120 Meter ID: [id number] [facility]Blood leukocytes automated count (number/volume)2020-01-01 12:25:00* Test Item Value Reference Range Interpretation Comments White Blood Count (test code = 6690-2) 6.34 4.8-10.8 [facility] erythrocytes automated count (number/volume)2020-01-01 12:25:00* Test Item Value Reference Range Interpretation Comments Red Blood Count (test code = 789-8) 3.82 4.3-5.7 [facility] hemoglobin measurement (moles/volume)2020-01-01 12:25:00* Test Item Value Reference Range Interpretation Comments Hemoglobin (test code = 38808-3) 9.7 14.0-18.0 [facility]lands[facility]ated blood hematocrit (volume fraction)2020-01-01 12:25:00* Test Item Value Reference Range Interpretation Comments Hematocrit (test code = 4544-3) 31.5 38.2-49.6 [facility]landsAutomated erythrocyte mean corpuscular mepqze2687-74-50 12:25:00* Test Item Value Reference Range Interpretation Comments Mean Corpuscular Volume (test code = 787-2) 82.5 81-99 [facility]landsAutomated erythrocyte mean corpuscular hemoglobin (mass per erythrocyte)2020-01-01 12:25:00* Test Item Value Reference Range Interpretation Comments Mean Corpuscular Hemoglobin (test code = 785-6) 25.4 28-32 [facility]landsAutomated erythrocyte mean corpuscular hemoglobin concentration measurement (mass/volume)2020-01-01 12:25:00* Test Item Value Reference Range Interpretation Comments Mean Corpuscular Hemoglobin Concent (test code = 786-4) 30.8 31-35 [facility]landsRDW AxwUf-Fcy7197-06-23 12:25:00* Test Item Value Reference Range Interpretation Comments Red Cell Distribution Width (test code = 00485-0) 18.1 11.7 -14.4 [facility]landsAutomated blood platelet count (count/volume)2020-01-01 12:25:00* Test Item Value Reference Range Interpretation Comments Platelet Count (test code = 777-3) 211 140-360 [facility]landsAutomated blood segmented neutrophil count as percentage of total gmiuagojol1451-50-58 12:25:00* Test Item Value Reference Range Interpretation Comments Neutrophils (%) (Auto) (test code = 61959-7) 73.7 38.7-80.0 [facility]landsAutomated blood lymphocyte count as percentage ot total yydcatfqei9157-30-11 12:25:00* Test Item Value Reference Range Interpretation Comments Lymphocytes (%) (Auto) (test code = 736-9) 11.8 18.0-39.1 [facility]landsAutomated blood monocyte count as percentage of total csonjrpysc7866-19-55 12:25:00* Test Item Value Reference Range Interpretation Comments Monocytes (%) (Auto) (test code = 5905-5) 11.7 4.4-11.3 [facility]landsAutomated blood eosinophil count as percentage of total aifyxzrilr1823-25-35 12:25:00* Test Item Value Reference Range Interpretation Comments Eosinophils (%) (Auto) (test code = 713-8) 2.2 0.0-6.0 [facility]landsAutomated blood basophil count as percentage of total epdtzwhjhg1723-08-80 12:25:00* Test Item Value Reference Range Interpretation Comments Basophils (%) (Auto) (test code = 706-2) 0.3 0.0-1.0 [facility]landsFluoroscopic procedure less than one hour brgihmru5782-23-36 12:25:00* Test Item Value Reference Range Interpretation Comments IM GRANULOCYTES % (test code = IM GRANULOCYTES %) 0.3 0.0- 1.0 [facility]landsAutomated blood neutrophil count 2020-01-01 12:25:00* Test Item Value Reference Range Interpretation Comments Neutrophils # (Auto) (test code = 751-8) 4.7 2.1-6.9 [facility] lymphocytes count (number/volume) 2020-01-01 12:25:00* Test Item Value Reference Range Interpretation Comments Lymphocytes # (Auto) (test code = 82392-4) 0.8 1.0-3.2 [facility]landsBlood monocytes automated count (number/volume)2020-01-01 12:25:00* Test Item Value Reference Range Interpretation Comments Monocytes # (Auto) (test code = 742-7) 0.7 0.2-0.8 [facility]landsAutomated blood eosinophil count 2020-01-01 12:25:00* Test Item Value Reference Range Interpretation Comments Eosinophils # (Auto) (test code = 711-2) 0.1 0.0-0.4 [facility]landsAutomated blood basophil count (count/volume)2020-01-01 12:25:00* Test Item Value Reference Range Interpretation Comments Basophils # (Auto) (test code = 704-7) 0.0 0.0-0.1 [facility]landsFluoroscopic procedure less than one hour hmkkuoae3423-45-97 12:25:00* Test Item Value Reference Range Interpretation Comments Absolute Immature Granulocyte (auto (rodrick t code = Absolute Immature Granulocyte (auto) 0.02 0-0.1 [facility] sodium measurement (moles/volume)2020-01-01 12:25:00* Test Item Value Reference Range Interpretation Comments Sodium Level (test code = 2951-2) 141 136-145 [facility] plasma potassium measurement (moles/volume)2020-01-01 12:25:00* Test Item Value Reference Range Interpretation Comments Potassium Level (test code = 2823-3) 3.6 3.5-5.1 [facility] plasma chloride measurement (moles/volume)2020-01-01 12:25:00* Test Item Value Reference Range Interpretation Comments Chloride Level (test code = 2075-0) 108 98-107 [facility] or plasma carbon dioxide, total measurement (moles/volume)2020-01-01 12:25:00* Test Item Value Reference Range Interpretation Comments Carbon Dioxide Level (test code = 2028-9) 24 22-29 [facility] or plasma anion [id number] 12:25:00* Test Item Value Reference Range Interpretation Comments Anion Gap (test code = 14614-3) 12.6 8-16 [facility] plasma urea nitrogen measurement (mass/volume)2020-01-01 12:25:00* Test Item Value Reference Range Interpretation Comments Blood Urea Nitrogen (test code = 3094-0) 15 7-26 [facility] plasma creatinine measurement (mass/volume)2020-01-01 12:25:00* Test Item Value Reference Range Interpretation Comments Creatinine (test code = 2160-0) 0.88 0.72-1.25 [facility] urea nitrogen/creatinine mass wwemp7233-95-40 12:25:00* Test Item Value Reference Range Interpretation Comments BUN/Creatinine Ratio (test code = 3097-3) 17 6-25 [facility]landsEstimated glomerular filtration rate (GFR) hlnefdaupajxc6613-76-13 12:25:00* Test Item Value Reference Range Interpretation Comments Estimat Glomerular Filtration Rate (test code = 787300883) > 60 >60 Ranges were taken from the National Kidney Disease Education Program and the [facility] literature.Reference ranges:60 or greater: Hrapsr93-56 ( for 3 consecutive months): Chronic kidney disease 15 or less: Kidney failureTexas Children's Hospital The WoodlandsGlucose gqxtywajgjl6406-79-93 12:25:00* Test Item Value Reference Range Interpretation Comments Glucose Level (test code = FLT9529) 69 74-118 [facility] plasma calcium measurement (mass/volume)2020-01-01 12:25:00* Test Item Value Reference Range Interpretation Comments Calcium Level (test code = 92980-1) 8.7 8.4-10.2 [facility]landsFluoroscopic procedure less than one hour ionvybex3456-23-07 06:00:00* Test Item Value Reference Range Interpretation Comments Hemoglobin A1c Percent (test code = Hemoglobin A1c Percent) 7.6 4.0-7.0 [facility]landsFluoroscopic procedure less than one hour flsrcgww1975-60-36 06:00:00* Test Item Value Reference Range Interpretation Comments Lactic Acid Level (test code = Lactic Acid Level) 1.3 0.5- 2.0 [facility] or plasma thyrotropin measurement by detection limit <= 0.005 miu/l (units/volume)2019-12-29 06:00:00* Test Item Value Reference Range Interpretation Comments Thyroid Stimulating Hormone (TSH) (test code = 05337-6) 0.821 0.350-4.940 [facility]landsBlood zxftjpb8869-94-48 06:00:00* Test Item Value Reference Range Interpretation Comments Blood Culture (test code = 57162331) NO GROWTH AFTER 5 DAYS, FINAL REPORT [facility]landsCT ABDOMEN/PELVIS [id number] 01:31:00 [facility] [address] [place] [address] Patient Name: LISA GLASER MR #: [id number] : 1940 Age/Sex: 79/M Req #: [id number] Adm Physician: ED SHETTY MD Ordered by: ED SHETTY MD Repo rt #: [id number] Location: [facility] Room/Be d: 292-1 Procedure: [id number] CT/CT ABDOMEN/P RONEL WO Exam Date: 12/28/19 [...] and calcific aortic valve disease. 3. 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 3. Atrop hic [place] kidneys. Perinephric fat stranding about the transplanted [...] COPY TO: ED SHETTY MD Bacterial blood ohnjunv9759-35-60 23:40:00* Test Item Value Reference Range Interpretation Comments Blood Culture (test code = 600-7) KLEBSIELLA PNEUMONIAE-ESBL [facility]Fluoroscopic procedure less than one hour zdvqupwx3263-17-99 17:17:00* Test Item Value Reference Range Interpretation [...] complexity tests.Testing performed by [facility] [address] [phone] Director: Torrey Giron M.D.CLIA # [id number] Children's Hospital The WoodlandsUrine color vkkbusojdpidt3359-91-23 14:50:00* Test Item Value Reference Range Interpretation Comments Urine Color (test code = 5778-6) YELLOW YELLOW [facility]landsUrine btougpt4774-58-97 14:50:00* Test Item Value Reference Range Interpretation Comments Urine Clarity (test code = 37312-6) HAZY CLEAR [facility] Hospitalpecific gravity of Urine by Test strip 2019-12-28 14:50:00* Test Item Value Reference Range Interpretation Comments Urine Specific [place] (test code = 5811-5) 1.015 1.010-1.02 5 [facility]landsUrine pH measurement by automated test extpm4885-14-61 14:50:00* Test Item Value Reference Range Interpretation Comments Urine pH (test code = 96417-6) 5.5 5-7 [facility]landsUrine leukocyte esterase detection by bsocwhmk2265-16-14 14:50:00* Test Item Value Reference Range Interpretation Comments Urine Leukocyte Esterase (test code = 5799-2) MODERATE NEGATIVE [facility]landsUrine nitrite mxqkipomo8915-29-13 14:50:00* Test Item Value Reference Range Interpretation Comments Urine Nitrite (test code = 08183-1) NEGATIVE NEGATIVE [facility]landsUrine protein measurement by test strip (mass/volume)2019-12-28 14:50:00* Test Item Value Reference Range Interpretation Comments Urine Protein (test code = 5804-0) 2+ NEGATIVE [facility]landsUrine glucose eprpnbsiv3968-86-47 14:50:00* Test Item Value Reference Range Interpretation Comments Urine Glucose (UA) (test code = 2349-9) 2+ NEGATIVE [facility]landsUrine ketones detection by automated test xqntk3800-55-36 14:50:00* Test Item Value Reference Range Interpretation Comments Urine Ketones (test code = 98892-2) NEGATIVE NEGATIVE [facility]landsUrine urobilinogen measurement by test strip (mass/volume)2019-12-28 14:50:00* Test Item Value Reference Range Interpretation Comments Urine Urobilinogen (test code = 34059-4) 0.2 0.2-1 [facility]landsUrine total bilirubin measurement (mass/volume)2019-12-28 14:50:00* Test Item Value Reference Range Interpretation Comments Urine Bilirubin (test code = 1978-6) NEGATIVE NEGATIVE [facility]landsUrine erythrocytes lsbouwpjo0280-42-48 14:50:00* Test Item Value Reference Range Interpretation Comments Urine Blood (test code = 33846-5) MODERATE NEGATIVE [facility]landsAutomated urine sediment leukocyte count by microscopy (number/high power field)2019-12-28 14:50:00* Test Item Value Reference Range Interpretation Comments Urine WBC (test code = 5821-4) >50 0-5 [facility]landsErythrocytes detection in urine sediment by light atixmkgvio5429-40-25 14:50:00* Test Item Value Reference Range Interpretation Comments Urine RBC (test code = 99003-7) 6-10 0-5 [facility]landsBacteria detection in urine sediment by light yntwywpacr9238-85-97 14:50:00* Test Item Value Reference Range Interpretation Comments Urine Bacteria (test code = 30900-0) MODERATE NONE [facility]landsEpithelial cells detection in urine sediment by light upmucvniwt3199-05-17 14:50:00* Test Item Value Reference Range Interpretation Comments Urine Epithelial Cells (test code = 05669-1) NONE NONE [facility] plasma total bilirubin measurement (mass/volume)2019-12-28 13:15:00* Test Item Value Reference Range Interpretation Comments Total Bilirubin (test code = 1975-2) 0.7 0.2-1.2 [facility]landsFluoroscopic procedure less than one hour nitncyvc5680-81-22 13:15:00* Test Item Value Reference Range Interpretation Comments Aspartate Amino Transf (AST/SGOT) (test code = Aspartate Amino Transf (AST/SGOT)) 13 5-34 [facility]erum or plasma alanine aminotransferase measurement (enzymatic activity/volume)2019-12-28 13:15:00* Test Item Value Reference Range Interpretation Comments Alanine Aminotransferase (ALT/SGPT) (test code = 1742-6) 13 0-55 [facility]er[facility] or plasma protein measurement (mass/volume)2019-12-28 13:15:00* Test Item Value Reference Range Interpretation Comments Total Protein (test code = 2885-2) 6.5 6.5-8.1 [facility] or plasma albumin measurement (mass/volume)2019-12-28 13:15:00* Test Item Value Reference Range Interpretation Comments Albumin (test code = 1751-7) 2.5 3.5-5.0 [facility]landsPlasma globulin measurement (mass/volume) 2019-12-28 13:15:00* Test Item Value Reference Range Interpretation Comments Globulin (test code = 37126-2) 4.0 2.3-3.5 [facility] or plasma albumin/globulin mass jxogi3660-28-67 13:15:00* Test Item Value Reference Range Interpretation Comments Albumin/Globulin Ratio (test code = 1759-0) 0.6 0.8-2.0 [facility] or plasma alkaline phosphatase measurement (enzymatic activity/volume)2019-12-28 13:15:00* Test Item Value Reference Range Interpretation Comments Alkaline Phosphatase (test code = 6768-6) 124 40-150 [facility]GLUBED2020[facility] 16:37:00* Test Item Value Reference Range Interpretation Comments GLUBED (test code = GLUBED) 110 mg/dL 74-106 H Performed by certified floor sanding machine operator at [facility] [id number] 11:55:00* Test Item Value Reference Range Interpretation Comments GLUBED (test code = GLUBED) 93 mg/dL 74-106 N Performed by certified floor sanding machine operator at [facility] [id number] 07:31:00* Test Item Value Reference Range Interpretation Comments GLUBED (test code = GLUBED) 104 mg/dL 74-106 N Performed by certified floor sanding machine operator at [facility] BASIC METABOLIC [id number] 07:12:00* Test Item Value Reference Range Interpretation [...] CA) 8.5 mg/dL 8.5-10.1 N BASIC METABOLIC [id number] 06:51:00* Test Item Value Reference Range Interpretation [...] code = CA) mg/dL 8.5-10.1 CBC W/AUTO [id number] 06:35:00* Test Item Value Reference Range Interpretation [...] DIFF REQUIRED (test code = MDIFF) NO [id number] 20:44:00* Test Item Value Reference Range Interpretation Comments GLUBED (test code = GLUBED) 212 mg/dL 74-106 H Performed by certified floor sanding machine operator at [facility] [id number] 16:44:00* Test Item Value Reference Range Interpretation Comments GLUBED (test code = GLUBED) 220 mg/dL 74-106 H Performed by certified floor sanding machine operator at [facility] [id number] 12:03:00* Test Item Value Reference Range Interpretation Comments GLUBED (test code = GLUBED) 115 mg/dL 74-106 H Performed by certified floor sanding machine operator at [facility] [id number] 07:50:00* Test Item Value Reference Range Interpretation Comments GLUBED (test code = GLUBED) 60 mg/dL 74-106 L Performed by certified floor sanding machine operator at [facility] [id number] 20:18:00* Test Item Value Reference Range Interpretation Comments GLUBED (test code = GLUBED) 247 mg/dL 74-106 H Performed by certified floor sanding machine operator at [facility] - XR CHEST 1 [id number] 19:22:00 FAX: Jose Alejandro Kirk MD [phone] [place]: B St: [facility] FAX: Curt Baig Fo Name: LISA GLASER [facility] : 1940 Age/S: 79/M [address] Unit #: [id number] Loc: V.3087 [place] [address] Phys: Curt Ag DO Acct: [id number] Dis Date: Status: ADM IN PHONE #: [phone] Exam Date: 11/10/2019 1845 FAX #: [phone] Reason: SOB/ LOW 02 EXAMS: CPT CODE: [id number] XR CHEST 1 V 47682 HISTORY: Shortness of breath. COMPARISON: None available. [...] RT(R); JOLENE HURTADO RT(R) Trnscrd Date/Time/By: 11/10/2019 (6 106) : By: [email or web address] Orig Print D/T: S: 11/10/2019 (1924) PAGE 1 Signed Report [id number] 16:48:00* Test Item Value Reference Range Interpretation Comments GLUBED (test code = GLUBED) 239 mg/dL 74-106 H Performed by certified floor sanding machine operator at [facility] [id number] 11:18:00* Test Item Value Reference Range Interpretation Comments GLUBED (test code = GLUBED) 199 mg/dL 74-106 H Performed by certified floor sanding machine operator at [facility] [id number] 08:09:00* Test Item Value Reference Range Interpretation Comments GLUBED (test code = GLUBED) 246 mg/dL 74-106 H Performed by certified floor sanding machine operator at [facility] BASIC METABOLIC [id number] 07:11:00* Test Item Value Reference Range Interpretation [...] CA) 8.1 mg/dL 8.5-10.1 L BASIC METABOLIC [id number] 07:03:00* Test Item Value Reference Range Interpretation [...] code = CA) mg/dL 8.5-10.1 CBC W/AUTO [id number] 06:25:00* Test Item Value Reference Range Interpretation [...] DIFF REQUIRED (test code = MDIFF) NO [id number] 21:24:00* Test Item Value Reference Range Interpretation Comments GLUBED (test code = GLUBED) 255 mg/dL 74-106 H Performed by certified floor sanding machine operator at [facility] [id number] 16:27:00* Test Item Value Reference Range Interpretation Comments GLUBED (test code = GLUBED) 226 mg/dL 74-106 H Performed by certified floor sanding machine operator at [facility] [id number] 11:23:00* Test Item Value Reference Range Interpretation Comments GLUBED (test code = GLUBED) 226 mg/dL 74-106 H Performed by certified floor sanding machine operator at [facility] [id number] 08:42:00* Test Item Value Reference Range Interpretation Comments GLUBED (test code = GLUBED) 226 mg/dL 74-106 H Performed by certified floor sanding machine operator at [facility] CBC W/AUTO [id number] 05:56:00* Test Item Value Reference Range Interpretation [...] DIFF REQUIRED (test code = MDIFF) NO [id number] 20:20:00* Test Item Value Reference Range Interpretation Comments GLUBED (test code = GLUBED) 239 mg/dL 74-106 H Performed by certified floor sanding machine operator at [facility] BASIC METABOLIC [id number] 16:40:00* Test Item Value Reference Range Interpretation [...] CA) 8.1 mg/dL 8.5-10.1 L BASIC METABOLIC [id number] 16:35:00* Test Item Value Reference Range Interpretation [...] code = CA) mg/dL 8.5-10.1 CBC W/AUTO [id number] 16:29:00* Test Item Value Reference Range Interpretation [...] DIFF REQUIRED (test code = MDIFF) NO [id number] 16:10:00* Test Item Value Reference Range Interpretation Comments GLUBED (test code = GLUBED) 157 mg/dL 74-106 H Performed by certified floor sanding machine operator at [facility] URINALYSIS [id number] 15:52:00* Test Item Value Reference Range Interpretation [...] MUCU) MODERATE #/LPF FEW A Urine Source? FkpfsrlfFLPQOV1964-35-00 14:25:00* Test Item Value Reference Range Interpretation Comments GLUBED (test code = GLUBED) 170 mg/dL 74-106 H Performed by certified floor sanding machine operator at [facility] [id number] 12:24:00* Test Item Value Reference Range Interpretation Comments GLUBED (test code = GLUBED) 275 mg/dL 74-106 H Performed by certified floor sanding machine operator at [facility] [id number] 07:42:00* Test Item Value Reference Range Interpretation Comments GLUBED (test code = GLUBED) 221 mg/dL 74-106 H Performed by certified floor sanding machine operator at [facility] [id number] 02:33:00* Test Item Value Reference Range Interpretation Comments GLUBED (test code = GLUBED) 215 mg/dL 74-106 H Performed by certified floor sanding machine operator at [facility] [id number] 20:12:00* Test Item Value Reference Range Interpretation Comments GLUBED (test code = GLUBED) 207 mg/dL 74-106 H Performed by certified floor sanding machine operator at [facility] [id number] 11:06:00* Test Item Value Reference Range Interpretation Comments GLUBED (test code = GLUBED) 155 mg/dL 74-106 H Performed by certified floor sanding machine operator at [facility] [id number] 07:42:00* Test Item Value Reference Range Interpretation Comments GLUBED (test code = GLUBED) 206 mg/dL 74-106 H Performed by certified floor sanding machine operator at [facility] [id number] 20:12:00* Test Item Value Reference Range Interpretation Comments GLUBED (test code = GLUBED) 205 mg/dL 74-106 H Performed by certified floor sanding machine operator at [facility] [id number] 16:26:00* Test Item Value Reference Range Interpretation Comments GLUBED (test code = GLUBED) 244 mg/dL 74-106 H Performed by certified floor sanding machine operator at [facility] [id number] 11:35:00* Test Item Value Reference Range Interpretation Comments GLUBED (test code = GLUBED) 70 mg/dL 74-106 L Performed by certified floor sanding machine operator at [facility] [id number] 08:07:00* Test Item Value Reference Range Interpretation Comments GLUBED (test code = GLUBED) 207 mg/dL 74-106 H Performed by certified floor sanding machine operator at [facility] [id number] 20:39:00* Test Item Value Reference Range Interpretation Comments GLUBED (test code = GLUBED) 173 mg/dL 74-106 H Performed by certified floor sanding machine operator at [facility] [id number] 15:45:00* Test Item Value Reference Range Interpretation Comments GLUBED (test code = GLUBED) 166 mg/dL 74-106 H Performed by certified floor sanding machine operator at [facility] [id number] 11:15:00* Test Item Value Reference Range Interpretation Comments GLUBED (test code = GLUBED) 182 mg/dL 74-106 H Performed by certified floor sanding machine operator at [facility] [id number] 07:16:00* Test Item Value Reference Range Interpretation Comments GLUBED (test code = GLUBED) 137 mg/dL 74-106 H Performed by certified floor sanding machine operator at [facility] BASIC METABOLIC [id number] 06:46:00* Test Item Value Reference Range Interpretation [...] CA) 8.2 mg/dL 8.5-10.1 L BASIC METABOLIC [id number] 06:41:00* Test Item Value Reference Range Interpretation [...] CALCIUM (test code = CA) mg/dL 8.5-10.1 [id number] 20:25:00* Test Item Value Reference Range Interpretation Comments GLUBED (test code = GLUBED) 88 mg/dL 74-106 N Performed by certified floor sanding machine operator at [facility] [id number] 16:06:00* Test Item Value Reference Range Interpretation Comments GLUBED (test code = GLUBED) 210 mg/dL 74-106 H Performed by certified floor sanding machine operator at [facility] [id number] 11:17:00* Test Item Value Reference Range Interpretation Comments GLUBED (test code = GLUBED) 121 mg/dL 74-106 H Performed by certified floor sanding machine operator at [facility] [id number] 07:42:00* Test Item Value Reference Range Interpretation Comments GLUBED (test code = GLUBED) 188 mg/dL 74-106 H Performed by certified floor sanding machine operator at [facility] [id number] 20:15:00* Test Item Value Reference Range Interpretation Comments GLUBED (test code = GLUBED) 124 mg/dL 74-106 H Performed by certified floor sanding machine operator at [facility] BASIC METABOLIC [id number] 16:26:00* Test Item Value Reference Range Interpretation [...] code = CA) 8.6 mg/dL 8.5-10.1 N [id number] 16:25:00* Test Item Value Reference Range Interpretation Comments GLUBED (test code = GLUBED) 167 mg/dL 74-106 H Performed by certified floor sanding machine operator at [facility] CBC W/AUTO [id number] 16:17:00* Test Item Value Reference Range Interpretation [...] code = NRBC#) 0.00 K/mm3 0.0-0.1 N [id number] 14:19:00* Test Item Value Reference Range Interpretation Comments GLUBED (test code = GLUBED) 175 mg/dL 74-106 H Performed by certified floor sanding machine operator at [facility] [id number] 12:15:00* Test Item Value Reference Range Interpretation Comments GLUBED (test code = GLUBED) 132 mg/dL 74-106 H Performed by certified floor sanding machine operator at [facility] [id number] 08:12:00* Test Item Value Reference Range Interpretation Comments GLUBED (test code = GLUBED) 108 mg/dL 74-106 H Performed by certified floor sanding machine operator at [facility] Prothrombin time (PT) in platelet poor plasma by coagulation [id number] 04:39:00* Test Item Value Reference Range Interpretation Comments Prothrombin Time (test code = 5902-2) 15.7 11.9-14.5 [facility]IN[facility] Platelet poor plasma by Coagulation [id number] 04:39:00* Test Item Value Reference Range Interpretation Comments Prothromb Time International Ratio (test code = 6301-6) 1.17 Oral Anticoagulant Therapy INR Values:1. Low Intensity Therapy 1.5 - 2.02 . Moderate Intensity Therapy 2.0 - 3.03. High Intensity Therapy(1) 2.5 - 3. 54. High Intensity Therapy(2) 3.0 - 4.05. Panic Value INR > 5.0 [facility]landsCHEST XRAY LINE [id number] 18:19:00 [place] [address] Patient Name: LISA GLASER MR #: [id number] : 1940 Age/Sex: 79/M Req #: [id number] Adm Physician: ED SHETTY MD Ordered by: ED SHETTY MD Report #: [id number] Location: MED/SURG2 Room/Bed: [facility] Procedure: [id number] DX/C HEST XRAY LINE PLACEMENT Exam Date: [...] Transcribed By: DEMOND on 10/22/19 COPY TO: ED SHETTY MD Activated partial thromboplastin time (aPTT) in platelet poor plasma by coagulation [id number] 05:40:00* Test Item Value Reference Range Interpretation Comments Activated Partial Thromboplast Time (test code = 16877-1) 33.1 23.8-35.5 [facility]landsPhosphorus faukevcpfct3222-79-36 05:44:00 * Test Item Value Reference Range Interpretation Comments Phosphorus Level (test code = PXP0028) 2.2 2.3-4.7 [facility] si[facility]imus level (mass/volume) 2019-10-21 05:44:00* Test Item Value Reference Range Interpretation Comments Rapamycin Level (test code = 51280-7) 5.8 3.0-20.0 Detection Limit = 1.0 Performed by LC/ MS-MS technology This test was developed and its performance c haracteristics determined by [facility]. It has not been cleared or approv ed by the Food and Drug Administration.Performed at: [address] [id number] Director: Dede Tsai MD , Phone: [phone] [facility] HospitalBlood cyclosporine measurement by immunoassay (mass/volume)2019-10-21 05:44:00* Test Item Value Reference Range Interpretation Comments Cyclosporine Level (test code = 36432-1) 35 100-400 Therapeutic: Renal Transplant 1 00 - 250 Liver Transplant 100 - 400 Cardiac Transplant 100 - 400 Bone Marrow 20 0 - 300 Detection Limit = 25Cyclosporine assay p erformed by [employer] CEDIAImmunoassay.If preferred testing methodology for cy closporine isLiquid Chromatography Tandem Mass Spectrometry(LC-MS/MS), please us e test code 229317. For testingperformed by Immunoassay, please use test code 70 6557.Performed at: [address] [id number] Director: Leo Saavedra PhD, Phone: [phone] [facility] HospitalUS RENAL RETROPERITONEAL [id number] 18:31:00 [place] [address] Patient Name: LISA GLASER MR #: [id number] : 1940 Age/Sex: 79/M Req #: [id number] Adm Physician: ED SHETTY MD Ordered by: JACEK LUDWIG MD Report #: [id number] Location: MED/SURG2 Room/Bed: [facility] Procedure: [id number] US/U S RENAL RETROPERITONEAL COMP Exam Date: [...] 33 COPY TO: JACEK LUDWIG MD Bedside [id number] 08:10:00* Test Item Value Reference Range Interpretation Comments Bedside Glucose (test code = 42855-5) 77 70-120 Meter ID: [id number] Hermann Katy Hospitalodium Level 2019-10-19 06:17:00* Test Item Value Reference Range Interpretation Comments Sodium Level (test code = 2951-2) 137 136-145 [facility]Potassium [id number] 06:17:00* Test Item Value Reference Range Interpretation Comments Potassium Level (test code = 2823-3) 4.0 3.5-5.1 [facility]landsChloride [id number] 06:17:00* Test Item Value Reference Range Interpretation Comments Chloride Level (test code = 2075-0) 105 98-107 [facility]landsCarbon Dioxide [id number] 06:17:00* Test Item Value Reference Range Interpretation Comments Carbon Dioxide Level (test code = 2028-9) 24 22-29 [facility]landsAnion [id number] 06:17:00* Test Item Value Reference Range Interpretation Comments Anion Gap (test code = 05998-1) 12.0 8-16 [facility]landsBlood Urea Qhchsfen8792-28-11 06:17:00* Test Item Value Reference Range Interpretation Comments Blood Urea Nitrogen (test code = 3094-0) 28 7-26 H [facility]landsCreatinine2020-04-10 06:17:00* Test Item Value Reference Range Interpretation Comments Creatinine (test code = 2160-0) 1.70 0.72-1.25 H [facility]landsBUN/Creatinine Qzjbw3403-52-92 06:17:00* Test Item Value Reference Range Interpretation Comments BUN/Creatinine Ratio (test code = 3097-3) 16 6-25 [facility]landsEstimat Glomerular Filtration Rate 2019-10-19 06:17:00* Test Item Value Reference Range Interpretation Comments Estimat Glomerular Filtration Rate (test code = 222126927) 39 >60 L Ranges were taken from the National Kidney Disease Education Program and the [facility] literature.Reference ranges:60 or greater: Yloieb03-01 ( for 3 consecutive months): Chronic kidney disease 15 or less: Kidney failureTexas Children's Hospital The WoodlandsGlucose Npxub7604-36-72 06:17:00* Test Item Value Reference Range Interpretation Comments Glucose Level (test code = IPO9877) 89 74-118 [facility]landsCalcium Fazjj5098-45-59 06:17:00* Test Item Value Reference Range Interpretation Comments Calcium Level (test code = 07553-3) 8.1 8.4-10.2 L [facility]landsTotal Veivykjby6320-54-11 06:17:00* Test Item Value Reference Range Interpretation Comments Total Bilirubin (test code = 1975-2) 0.3 0.2-1.2 [facility]landsAspartate Amino Transf (AST/SGOT) 2019-10-19 06:17:00* Test Item Value Reference Range Interpretation Comments Aspartate Amino Transf (AST/SGOT) (test code = Aspartate Amino Transf (AST/SGOT)) 13 5-34 [facility]landsAlanine Aminotransferase (ALT/SGPT) 2019-10-19 06:17:00* Test Item Value Reference Range Interpretation Comments Alanine Aminotransferase (ALT/SGPT) (test code = 1742-6) 7 0-55 [facility]landsTotal Dbptjwn0244-95-86 06:17:00* Test Item Value Reference Range Interpretation Comments Total Protein (test code = 2885-2) 6.2 6.5-8.1 L [facility]landsAlbumin2020-04-10 06:17:00* Test Item Value Reference Range Interpretation Comments Albumin (test code = 1751-7) 2.1 3.5-5.0 L [facility]landsGlobulin2020-04-10 06:17:00* Test Item Value Reference Range Interpretation Comments Globulin (test code = 45940-6) 4.1 2.3-3.5 H [facility]landsAlbumin/Globulin Bpamw6142-74-43 06:17:00 * Test Item Value Reference Range Interpretation Comments Albumin/Globulin Ratio (test code = 1759-0) 0.5 0.8-2.0 L [facility]landsAlkaline Dxorzaxblsm7036-74-52 06:17:00* Test Item Value Reference Range Interpretation Comments Alkaline Phosphatase (test code = 6768-6) 85 40-150 [facility]landsBlood Omycwrf6724-78-56 12:26:00* Test Item Value Reference Range Interpretation Comments Blood Culture (test code = 51766443) NO GROWTH AFTER 24 HOURS [facility]landsHemoglobin A1c Hqumvoi4945-58-25 11:00:00 * Test Item Value Reference Range Interpretation Comments Hemoglobin A1c Percent (test code = Hemoglobin A1c Percent) 7.9 4.0-7.0 H [facility]landsThyroid Stimulating Hormone (TSH) 2019-10-18 07:43:00* Test Item Value Reference Range Interpretation Comments Thyroid Stimulating Hormone (TSH) (test code = 13837-0) 0.878 0.350-4.940 [facility]landsWhite Blood Dcrom2509-84-48 06:38:00* Test Item Value Reference Range Interpretation Comments White Blood Count (test code = 6690-2) 12.13 4.8-10.8 H [facility]landsRed Blood Ritxc4097-75-19 06:38:00* Test Item Value Reference Range Interpretation Comments Red Blood Count (test code = 789-8) 4.13 4.3-5.7 L [facility]landsHemoglobin2020-04-09 06:38:00* Test Item Value Reference Range Interpretation Comments Hemoglobin (test code = 31512-5) 11.3 14.0-18.0 L [facility]landsHematocrit2020-04-09 06:38:00* Test Item Value Reference Range Interpretation Comments Hematocrit (test code = 4544-3) 34.8 38.2-49.6 L [facility]landsMean Corpuscular Umvkdh3405-44-87 06:38:00* Test Item Value Reference Range Interpretation Comments Mean Corpuscular Volume (test code = 787-2) 84.3 81-99 [facility]landsMean Corpuscular Njawkafsfm8583-20-88 06:38:00* Test Item Value Reference Range Interpretation Comments Mean Corpuscular Hemoglobin (test code = 785-6) 27.4 28-32 L [facility]landsMean Corpuscular Hemoglobin Concent 2019-10-18 06:38:00* Test Item Value Reference Range Interpretation Comments Mean Corpuscular Hemoglobin Concent (test code = 786-4) 32.5 31-35 [facility]landsRed Cell Distribution Bxtkj4688-72-51 06:38:00* Test Item Value Reference Range Interpretation Comments Red Cell Distribution Width (test code = 27404-8) 12.8 11.7 -14.4 [facility]landsPlatelet Yttle8960-92-48 06:38:00* Test Item Value Reference Range Interpretation Comments Platelet Count (test code = 777-3) 300 140-360 [facility]landsNeutrophils (%) (Auto)2019-10-18 06:38:00 * Test Item Value Reference Range Interpretation Comments Neutrophils (%) (Auto) (test code = 95248-9) 79.1 38.7-80.0 [facility]landsLymphocytes (%) (Auto)2019-10-18 06:38:00 * Test Item Value Reference Range Interpretation Comments Lymphocytes (%) (Auto) (test code = 736-9) 7.9 18.0-39.1 L [facility]landsMonocytes (%) (Auto)2019-10-18 06:38:00* Test Item Value Reference Range Interpretation Comments Monocytes (%) (Auto) (test code = 5905-5) 12.0 4.4-11.3 H [facility]landsEosinophils (%) (Auto)2019-10-18 06:38:00 * Test Item Value Reference Range Interpretation Comments Eosinophils (%) (Auto) (test code = 713-8) 0.2 0.0-6.0 [facility]landsBasophils (%) (Auto)2019-10-18 06:38:00* Test Item Value Reference Range Interpretation Comments Basophils (%) (Auto) (test code = 706-2) 0.2 0.0-1.0 [facility]landsIM GRANULOCYTES %2019-10-18 06:38:00* Test Item Value Reference Range Interpretation Comments IM GRANULOCYTES % (test code = IM GRANULOCYTES %) 0.6 0.0- 1.0 [facility]landsNeutrophils # (Auto)2019-10-18 06:38:00* Test Item Value Reference Range Interpretation Comments Neutrophils # (Auto) (test code = 751-8) 9.6 2.1-6.9 H [facility]landsLymphocytes # (Auto)2019-10-18 06:38:00* Test Item Value Reference Range Interpretation Comments Lymphocytes # (Auto) (test code = 18672-0) 1.0 1.0-3.2 [facility]landsMonocytes # (Auto)2019-10-18 06:38:00* Test Item Value Reference Range Interpretation Comments Monocytes # (Auto) (test code = 742-7) 1.5 0.2-0.8 H [facility]landsEosinophils # (Auto)2019-10-18 06:38:00* Test Item Value Reference Range Interpretation Comments Eosinophils # (Auto) (test code = 711-2) 0.0 0.0-0.4 [facility]landsBasophils # (Auto)2019-10-18 06:38:00* Test Item Value Reference Range Interpretation Comments Basophils # (Auto) (test code = 704-7) 0.0 0.0-0.1 [facility]landsAbsolute Immature Granulocyte (auto 2019-10-18 06:38:00* Test Item Value Reference Range Interpretation Comments Absolute Immature Granulocyte (auto (rodrick t code = Absolute Immature Granulocyte (auto) 0.07 0-0.1 [facility] WoodlandsCreatine Wkgmic3876-90-08 20:52:00* Test Item Value Reference Range Interpretation Comments Creatine Kinase (test code = 2157-6) 78 30-200 [facility]landsCreatine Kinase IQ0549-01-26 20:52:00* Test Item Value Reference Range Interpretation Comments Creatine Kinase MB (test code = 77464-2) 1.20 0-5.0 [facility] WoodlandsTroponin X2624-22-81 20:52:00* Test Item Value Reference Range Interpretation Comments Troponin I (test code = 98939-8) < 0.001 0-0.300 [facility]er[facility] or plasma creatine kinase measurement (enzymatic activity/volume)2019-10-17 20:00:00* Test Item Value Reference Range Interpretation Comments Creatine Kinase (test code = 2157-6) 78 30-200 [facility] Hospitalerum or plasma creatine kinase MB measurement (mass/volume)2019-10-17 20:00:00* Test Item Value Reference Range Interpretation Comments Creatine Kinase MB (test code = 72018-4) 1.20 0-5.0 [facility]landsTroponin I measurement by highly sensitive enzyme tbcylevlkeg9000-08-76 20:00:00* Test Item Value Reference Range Interpretation Comments Troponin I (test code = 78883-3) < 0.001 0-0.300 [facility] WoodlandsFOOT RIGHT EWXJVFVL4999-82-75 12:54:00 [facility] [address] [address] Patient Name: LISA GLASER MR #: [id number] : 1939 Age/Sex: 79/M Req #: [id number] Adm Physician: Ordered by: WONG CARRERA MD Report #: [id number] Location: ER Room/Bed: Procedure: [id number] D X/FOOT RIGHT COMPLETE Exam Date: 10/17/19 [...] COPY TO: DANIEL CARRERA RD, MD Prothrombin Srxt2429-93-91 12:46:00* Test Item Value Reference Range Interpretation Comments Prothrombin Time (test code = 5902-2) 14.4 11.9-14.5 [facility]landsProthromb Time International Ratio 2019-10-17 12:46:00* Test Item Value Reference Range Interpretation Comments Prothromb Time International Ratio (test code = 6301-6) 1.05 Oral Anticoagulant Therapy INR Values:1. Low Intensity Therapy 1.5 - 2.02 . Moderate Intensity Therapy 2.0 - 3.03. High Intensity Therapy(1) 2.5 - 3. 54. High Intensity Therapy(2) 3.0 - 4.05. Panic Value INR > 5.0 [facility] WoodlandsActivated Partial Thromboplast Time 2019-10-17 12:46:00* Test Item Value Reference Range Interpretation Comments Activated Partial Thromboplast Time (test code = 50307-0) 41.3 23.8-35.5 H [facility] WoodlandsFOOT RIGHT AP DCM3037-25-39 08:30:00 [place] [address] Patient Name: LISA GLASER MR #: [id number] : 1939 Age/Sex: 78/M Req #: [id number] Adm Physician: Ordered by: FUENTES DAVE DPGiovanna Report #: [id number] Location: OR Room/Bed: Procedure: [id number] DX/ FOOT RIGHT AP LAT Exam Date: [...] COPY TO: FUENTES MUKHERJEE DPM CHEST 2 QNYVO0516-11-56 11:04:00 [place] [address] Patient Name: LISA GLASER MR #: [id number] : 1940 Age/Sex: 78/M Req #: [id number] Adm Physician: Ordered by: FUENTES DAVE DPM Report #: [id number] Location: OR Room/Bed: Procedure: [id number] DX/ CHEST 2 VIEWS Exam Date: 10/19/18 [...] 10/19 COPY TO: FUENTES DAVE DPM Bedside Aplbnun4540-42-36 12:05:00* Test Item Value Reference Range Interpretation Comments Bedside Glucose (test code = 83647-1) 73 70-120 Meter ID: [id number] [facility] HospitalWound Culture 2018-09-16 10:17:00* Test Item Value Reference Range Interpretation Comments Wound Culture (test code = 6462-6) Organism: GRAM NEGATIVE RONDA [facility] WoodlandsWhite Blood Huotj8998-98-39 09:32:00* Test Item Value Reference Range Interpretation Comments White Blood Count (test code = 6690-2) 10.35 4.8-10.8 [facility] WoodlandsRed Blood Iiaei7114-00-66 09:32:00* Test Item Value Reference Range Interpretation Comments Red Blood Count (test code = 789-8) 4.28 4.3-5.7 L [facility]landsHemoglobin2019-03-09 09:32:00* Test Item Value Reference Range Interpretation Comments Hemoglobin (test code = 99404-3) 12.1 14.0-18.0 L [facility]landsHematocrit2019-03-09 09:32:00* Test Item Value Reference Range Interpretation Comments Hematocrit (test code = 4544-3) 35.6 38.2-49.6 L [facility] WoodlandsMean Corpuscular Vrgbtw1063-85-92 09:32:00* Test Item Value Reference Range Interpretation Comments Mean Corpuscular Volume (test code = 787-2) 83.2 81-99 [facility]landsMean Corpuscular Jjenmieope5513-17-63 09:32:00* Test Item Value Reference Range Interpretation Comments Mean Corpuscular Hemoglobin (test code = 785-6) 28.3 28-32 [facility] WoodlandsMean Corpuscular Hemoglobin Concent 2018-09-16 09:32:00* Test Item Value Reference Range Interpretation Comments Mean Corpuscular Hemoglobin Concent (test code = 786-4) 34.0 31-35 [facility] WoodlandsRed Cell Distribution Pzubl6398-53-77 09:32:00* Test Item Value Reference Range Interpretation Comments Red Cell Distribution Width (test code = 25954-1) 13.6 11.7 -14.4 [facility] WoodlandsPlatelet Jhwoz0157-30-88 09:32:00* Test Item Value Reference Range Interpretation Comments Platelet Count (test code = 777-3) 277 140-360 [facility]landsNeutrophils (%) (Auto)2018-09-16 09:32:00 * Test Item Value Reference Range Interpretation Comments Neutrophils (%) (Auto) (test code = 98742-4) 76.7 38.7-80.0 [facility] WoodlandsLymphocytes (%) (Auto)2018-09-16 09:32:00 * Test Item Value Reference Range Interpretation Comments Lymphocytes (%) (Auto) (test code = 736-9) 6.2 18.0-39.1 L [facility]landsMonocytes (%) (Auto)2018-09-16 09:32:00* Test Item Value Reference Range Interpretation Comments Monocytes (%) (Auto) (test code = 5905-5) 14.6 4.4-11.3 H [facility]landsEosinophils (%) (Auto)2018-09-16 09:32:00 * Test Item Value Reference Range Interpretation Comments Eosinophils (%) (Auto) (test code = 713-8) 1.0 0.0-6.0 [facility]landsBasophils (%) (Auto)2018-09-16 09:32:00* Test Item Value Reference Range Interpretation Comments Basophils (%) (Auto) (test code = 706-2) 0.5 0.0-1.0 [facility] WoodlandsIM GRANULOCYTES %2018-09-16 09:32:00* Test Item Value Reference Range Interpretation Comments IM GRANULOCYTES % (test code = IM GRANULOCYTES %) 1.0 0.0- 1.0 [facility]landsNeutrophils # (Auto)2018-09-16 09:32:00* Test Item Value Reference Range Interpretation Comments Neutrophils # (Auto) (test code = 751-8) 8.0 2.1-6.9 H [facility]landsLymphocytes # (Auto)2018-09-16 09:32:00* Test Item Value Reference Range Interpretation Comments Lymphocytes # (Auto) (test code = 36387-0) 0.6 1.0-3.2 L [facility]landsMonocytes # (Auto)2018-09-16 09:32:00* Test Item Value Reference Range Interpretation Comments Monocytes # (Auto) (test code = 742-7) 1.5 0.2-0.8 H [facility]landsEosinophils # (Auto)2018-09-16 09:32:00* Test Item Value Reference Range Interpretation Comments Eosinophils # (Auto) (test code = 711-2) 0.1 0.0-0.4 [facility]landsBasophils # (Auto)2018-09-16 09:32:00* Test Item Value Reference Range Interpretation Comments Basophils # (Auto) (test code = 704-7) 0.1 0.0-0.1 [facility] WoodlandsAbsolute Immature Granulocyte (auto 2018-09-16 09:32:00* Test Item Value Reference Range Interpretation Comments Absolute Immature Granulocyte (auto (rodrick t code = Absolute Immature Granulocyte (auto) 0.10 0-0.1 [facility] Hospitalodium Xafvz9891-65-71 07:14:00* Test Item Value Reference Range Interpretation Comments Sodium Level (test code = 2951-2) 136 136-145 [facility]landsPotassium Evchs2726-59-85 07:14:00* Test Item Value Reference Range Interpretation Comments Potassium Level (test code = 2823-3) 3.9 3.5-5.1 [facility]landsChloride Guuup3466-90-34 07:14:00* Test Item Value Reference Range Interpretation Comments Chloride Level (test code = 2075-0) 108 98-107 H [facility] WoodlandsCarbon Dioxide Fzeiz1241-83-51 07:14:00* Test Item Value Reference Range Interpretation Comments Carbon Dioxide Level (test code = 2028-9) 19 22-29 L [facility] WoodlandsAnion Fuf8127-01-49 07:14:00* Test Item Value Reference Range Interpretation Comments Anion Gap (test code = 88495-6) 12.9 8-16 [facility] WoodlandsBlood Urea Nemlnrej5637-15-45 07:14:00* Test Item Value Reference Range Interpretation Comments Blood Urea Nitrogen (test code = 3094-0) 16 7-26 [facility] WoodlandsCreatinine2019-03-09 07:14:00* Test Item Value Reference Range Interpretation Comments Creatinine (test code = 2160-0) 0.78 0.72-1.25 [facility] WoodlandsBUN/Creatinine Saltp7379-18-75 07:14:00* Test Item Value Reference Range Interpretation Comments BUN/Creatinine Ratio (test code = 3097-3) 21 6-25 [facility] WoodlandsEstimat Glomerular Filtration Rate 2018-09-16 07:14:00* Test Item Value Reference Range Interpretation Comments Estimat Glomerular Filtration Rate (test code = 205273324) > 60 >60 Ranges were taken from the National Kidney Disease Education Program and the [facility] literature.Reference ranges:60 or greater: Jptcfq37-70 ( for 3 consecutive months): Chronic kidney disease 15 or less: Kidney failureTexas Children's Hospital The WoodlandsGlucose Feqif6728-62-19 07:14:00* Test Item Value Reference Range Interpretation Comments Glucose Level (test code = HWU5804) 77 74-118 [facility] WoodlandsCalcium Ylqii9825-75-30 07:14:00* Test Item Value Reference Range Interpretation Comments Calcium Level (test code = 70205-9) 8.5 8.4-10.2 [facility] WoodlandsFOOT RIGHT AP HRU7568-03-39 10:13:00 [facility] [address] [address] Patient Name: LISA GLASER MR #: [id number] : 1939 Age/Sex: 78/M Req #: [id number] Adm Physician: ED SHETTY MD Ordered by: FUENTES DAVE DPM Report #: [id number] Location: [facility] Room/Bed: [facility] Procedure: [id number] DX/ FOOT RIGHT AP LAT Exam Date: [...] Bilirubin (test code = 1975-2) 0.3 0.2-1.2 [facility] WoodlandsAspartate Amino Transf (AST/SGOT) 2018-09-13 07:28:00* Test Item Value Reference Range Interpretation Comments Aspartate Amino Transf (AST/SGOT) (test code = Aspartate Amino Transf (AST/SGOT)) 15 5-34 [facility] WoodlandsAlanine Aminotransferase (ALT/SGPT) 2018-09-13 07:28:00* Test Item Value Reference Range Interpretation Comments Alanine Aminotransferase (ALT/SGPT) (test code = 1742-6) 18 0-55 [facility] WoodlandsTotal Bsaoqvz0041-51-23 07:28:00* Test Item Value Reference Range Interpretation Comments Total Protein (test code = 2885-2) 6.5 6.5-8.1 [facility] WoodlandsAlbumin2019-03-06 07:28:00* Test Item Value Reference Range Interpretation Comments Albumin (test code = 1751-7) 2.7 3.5-5.0 L [facility] WoodlandsGlobulin2019-03-06 07:28:00* Test Item Value Reference Range Interpretation Comments Globulin (test code = 25602-9) 3.8 2.3-3.5 H [facility] WoodlandsAlbumin/Globulin Pplqq0398-39-05 07:28:00 * Test Item Value Reference Range Interpretation Comments Albumin/Globulin Ratio (test code = 1759-0) 0.7 0.8-2.0 L [facility] WoodlandsAlkaline Auycersqyvr4856-60-07 07:28:00* Test Item Value Reference Range Interpretation Comments Alkaline Phosphatase (test code = 6768-6) 90 40-150 [facility] WoodlandsPhosphorus Fvcmz3401-93-87 06:36:00* Test Item Value Reference Range Interpretation Comments Phosphorus Level (test code = XGB8445) 3.4 2.3-4.7 [facility] WoodlandsMagnesium Ijnfg1517-05-69 06:36:00* Test Item Value Reference Range Interpretation Comments Magnesium Level (test code = 73521-8) 1.8 1.3-2.1 [facility] WoodlandsCHEST 2 UOWSX4577-49-58 09:47:00 [facility] [address] [address] Patient Name: LISA GLASER MR #: [id number] : 1940 Age/Sex: 78/M Req #: [id number] Adm Physician: ED SHETTY MD Ordered by: ED SHETTY MD Report #: [id number] Location: [facility] Room/Bed: [facility] Procedure: [id number] DX/C HEST 2 VIEWS Exam Date: 09/10/18 [...] 09/10/18947 COPY TO: ED SHETTY MD Prothrombin Ghlh3545-10-84 06:26:00* Test Item Value Reference Range Interpretation Comments Prothrombin Time (test code = 5902-2) 13.0 11.9-14.5 [facility] WoodlandsProthromb Time International Ratio 2018-09-10 06:26:00* Test Item Value Reference Range Interpretation Comments Prothromb Time International Ratio (test code = 6301-6) 0.93 Oral Anticoagulant Therapy INR Values:1. Low Intensity Therapy 1.5 - 2.02 . Moderate Intensity Therapy 2.0 - 3.03. High Intensity Therapy(1) 2.5 - 3. 54. High Intensity Therapy(2) 3.0 - 4.05. Panic Value INR > 5.0 [facility] WoodlandsVancomycin Level Erxpvo8992-70-80 12:09:00* Test Item Value Reference Range Interpretation Comments Vancomycin Level Trough (test code = 4092-3) 8.9 5.0-10.0 [facility] WoodlandsRapamycin Ezdcu2515-91-31 08:52:00* Test Item Value Reference Range Interpretation Comments Rapamycin Level (test code = 62544-3) 1.4 3.0-20.0 L Detection Limit = 1.0 Performed by LC/ MS-MS technology This test was developed and its performance c haracteristics determined by [employer]. It has not been cleared or approv ed by the Food and Drug Administration.Performed at: [facility] [id number] [place], [place] [id number] Director: Dede Tsai MD , Phone: [phone] [facility] HospitalCyclosporine Level 2018-09-08 05:46:00* Test Item Value Reference Range Interpretation Comments Cyclosporine Level (test code = 66008-2) 25 100-400 L Therapeutic: Renal Transplant 1 00 - 250 Liver Transplant 100 - 400 Cardiac Transplant 100 - 400 Bone Marrow 20 0 - 300 Detection Limit = 25Cyclosporine assay p erformed by [employer] CEDIAImmunoassay.If preferred testing methodology for cy closporine isLiquid Chromatography Tandem Mass Spectrometry(LC-MS/MS), please us e test code 634578. For testingperformed by Immunoassay, please use test code 70 6557.Performed at: [address] [id number] b Director: Leo Saavedra PhD, Phone: [phone] Children's Hospital The WoodlandsBlood Ztmuxgd1434-30-80 20:24:00* Test Item Value Reference Range Interpretation Comments Blood Culture (test code = 10116134) NO GROWTH AFTER 5 DAYS, FINAL REPORT [facility] WoodlandsActivated Partial Thromboplast Time 2018-09-04 06:19:00* Test Item Value Reference Range Interpretation Comments Activated Partial Thromboplast Time (test code = 54554-1) 38.3 23.8-35.5 H [facility] WoodlandsCT CHEST IB0211-83-10 15:56:00 [place] [address] Patient Name: LISA GLASER MR #: [id number] : 1940 Age/Sex: 78/M Req #: [id number] Adm Physician: ED SHETTY MD Ordered by: ED SHETTY MD Report #: [id number] Location: [facility] Room/Bed: [facility] Procedure: [id number] CT/C T CHEST WO Exam Date: 09/02/18 [...] 4:05 PM Dictated By: GEORGIE ORDONEZ MD 4317 Transcr ibed By: DEMOND on 09/02/18 1192 COPY TO: ED SHETTY MD FOOT RIGHT HXWOWXQD3923-54-68 14:22:00 [place] [address] Patient Name: LISA GLASER MR #: [id number] : 1940 Age/Sex: 78/M Req #: [id number] Adm Physician: ED SHETTY MD Ordered by: FUENTES DAVE DPM Report #: [id number] Location: [facility] Room/Bed: 285-1 Procedure: [id number] DX/ FOOT RIGHT COMPLETE Exam Date: 09/02/18 [...] 5 PM Dictated By: GEORGIE ORDONEZ MD 1428 Transcribed By: DEMOND on 09/02/18 1428 COPY TO: FUENTES DAVE DPM Hemoglobin A1c Bedzgeo5469-92-63 08:15:00* Test Item Value Reference Range Interpretation Comments Hemoglobin A1c Percent (test code = Hemoglobin A1c Percent) 10.2 4.0-7.0 H [facility] WoodlandsThyroid Stimulating Hormone (TSH) 2018-09-02 06:56:00* Test Item Value Reference Range Interpretation Comments Thyroid Stimulating Hormone (TSH) (test code = 38066-4) 2.431 0.350-4.940 [facility] WoodlandsCHES SINGLE (PORTABLE)2018-09-01 16:57:00 [place] [address] Patient Name: LISA GLASER MR #: [id number] : 1940 Age/Sex: 78/M Req #: [id number] Adm Physician: ED SHETTY MD Ordered by: ED SHETTY MD Report #: [id number] Location: [facility] Room/Bed: [facility] Procedure: [id number] DX/C HEST SINGLE (PORTABLE) Exam Date: 09/01/18 [...] 4:58 PM Dictated By: ZAIN CHACON MD 1652 Transcribed By: DEMOND on 09/01/18 1 658 COPY TO: ED SHETTY MD - XR FOOT 2 VIEWS SN0882-33-84 09:12:00 FAX: Fuentes Claire DPM [phone] [place]: St: UNK Name: Rich LISA YOUNG [facility] : [birth year] Age/S: 75/M [address] [facility] Unit #: [id number] Loc: [place] [address] Phys: Fuentes Dave DPM Acct: [id number] Dis Date: Status: UNK PHONE #: [phone] Exam Date: 05/24/2016 0857 FAX #: [phone] Reason: S/P TRANSMETATARSAL AMPUTATION I D WITH FLAP CL EXAMS: CPT CODE: [id number] XR FOOT 2 [place] [address] HISTORY: Post transmetatarsal ampu tation. COMPARISON: None available. Patient is post transmetatarsal resection. The margins appear sharp. Splint obscures det ail. Vascular locations. Bone mineralization is normal. IMPRESSION: Unremarkable post transmetatarsal resection. at 0912 Reported and signed by: Talat Thorpe M.D. CC: Fuentes Dave DPM Technologist: Noelle Cabezas RT(R); STUDENT TECHNOLOGIST Trnnerd Date/Time/By: (0912) : By: Ez.TH4 Orig Print D/T: S: 05/24/2016 (1438) PAGE 1 Signed Report - SP AORTOGM ABD W/WPSA8013-70-42 17:16:00 Name: LISA GLASER [facility] : 1940 Age/S: 75 / M [address] [facility]: [id number] Loc: [place] [address] Phys: Manish Shane MD Acct: [id number] Di s Date: Status: UNK PHONE #: Exam Date: 09/11/2015 1410 FAX #: Reason: EXAMS: CPT CODE: [id number] SP AORTOGM ABD W/FILM 25092 Fluoro Time: 7.3 DAP (Gy m2 ): 34944 Air Kerma (mGy): 331.0 REASON FOR EXAM: [...] the right common femoral artery and a 5-Ugandan vascular sheath was inserted. An Omni Flush catheter was advanced over t he guidewire into the abdominal aorta. Abdominal aortogram show unremarka ble appearance of the abdominal aorta and iliac arteries. Th e Omni Flush catheter was then used to engage the bifurcation and advanced over a guidewire into the left external iliac artery. A 6-Ugandan vascula r sheath was then inserted. A [...] right lower extremity was performed to the 6-Ugandan vascular sheath. It demonstrate no evidence of disease in the SFA. There are 2 vessels r unoff in the anterior tibial and peroneal arteries to the right foot. No intervention performed on the right. MEDICATIONS: 4000 units of he shaw Complications: No immediate Blood loss: 10 mL PAGE 1 Signed Report (CONTINUED) Name: LISA MUNOZ [facility] : [birth year] Age/S: 75 / M [address] Unit #: [id number] Loc: [place] [address] Phys: Manish Shane MD Acct: [id number] Dis Date: Status: UNK PHONE #: Exam Date: 09/11/2015 1410 FAX #: [phone] R gordy: EXAMS: CPT CODE: [id number] SP AORTOGM ABD W/FILM 89204 Fluoro Time: 7.3 DAP (Gy m2): 89655 Air Kerma (mGy): 331.0 <Continued> IMPRESSION: High-grade [...] Helm; Maurice German MD Technologist: REN[facility]IG[facility] Date/Time: 09/11/2015 (1715) ChrisL Orig Print D/T: S: 09/11/2015 (337) PAGE 2 Signed Report - SP ANGIO EXT [id number] 17:16:00 Name: LISA GLASER [facility] : 1940 Age/S: 75 / M [address] Unit #: [id number] Loc: [place] [address] Phys: Manish Shane MD Acct: [id number] Dis Date: Status: UNK PHONE #: [phone] Exam Date: 09/11/2015 1410 FAX #: [phone] Reason: EXAMS: CPT CODE: [id number] [place] [address] Fluoro Time: DAP (Gy m2): Air Kerma [...] the right common femoral artery and a 5-Ugandan vascular sheath was inserted. An Omni Flush catheter was advanced over t he guidewire into the abdominal aorta. Abdominal aortogram show unremarka ble appearance of the abdominal aorta and iliac arteries. Th e Omni Flush catheter was then used to engage the bifurcation and advanced over a guidewire into the left external iliac artery. A 6-Ugandan vascula r sheath was then inserted. A [...] right lower extremity was performed to the 6-Ugandan vascular sheath. It demonstrate no evidence of disease in the SFA. There are 2 vessels r unoff in the anterior tibial and peroneal arteries to the right foot. No intervention performed on the right. MEDICATIONS: 4000 units of he shaw Complications: No immediate Blood loss: 10 mL PAGE 1 Signed Report (CONTINUED) Name: LISA MUNOZ [facility] : [birth year] Age/S: 75 / M [address] Unit #: [id number] Loc: [place] [address] Phys: Manish Shane MD Acct: [id number] Dis Date: Status: UNK PHONE #: Exam Date: 09/11/2015 1410 FAX #: [phone] R gordy: EXAMS: CPT CODE: [id number] [place] [address] Fluoro Time: DAP (Gy m2): Air Kerma [...] (1716) t.SDR.VTL Orig Print D/T: S: 09/11/2015 (5134) PAGE 2 Signed Report - CT C-SPINE W/O YUSTGKFB9571-48-81 11:42:00 Name: LISA GLASER [facility] : 1940 Age/S: 71 / M [address] [facility] Unit #: [id number] Loc: [place] [address] Phys: Ed Archibald MD Acct: [id number] Dis Date: Status: UNK PHONE #: [phone] Exam Date: 11/16/2011 1135 FAX #: [phone] Reason: neck, shoulder pain EXAMS: CPT CODE: [id number] CT C-SPINE W/O CONTRAST 67872 HISTORY: Neck and shoulder pain TECHNIQUE: Axial [...] (1145) EugenioCB5 Orig Print D/T: S: 11/16/2011 (6475) PAGE 1 Signed Report - [facility] ACCESS 2004-11-28 16:05:00 Name: LISA GLASER [facility] : 1940 Age/S: 64 / M [address] [facility] Unit #: [id number] Loc: [place] [address] Phys: Js Howard MD Acct: [id number] Dis Date: Status: UNK PHONE #: [phone] Exam Date: 11/28/2004 1526 FAX #: [phone] Reason: EXAMS: CPT CODE: [id number] [facility] ACCESS [address]4835 Fluoro Time: DAP (Gy m2): Air Kerma (mGy): DICTATED: 11/28/04, 1605 HISTORY: CLOTTED SHUNT, HYPOKALEMIA, NEEDING EMERGENT DIALYSIS. HEMODIALYSIS CATHETER PLACEMENT, 11/28/04: CPT 96955, 59645 IMPRESSION: SUCCESSFUL PLACEMENT OF RIGHT INTERNAL JUGULAR [...] and there is no evidence of hemorrhage. [address] at 1938 Reported and signed by: Manish Shane M.D. CC: Js Howard Technologist: DONNELL HOFFMAN) ARMANDO Trnneb Date/Time: 11/29/2004 (0713) Luiz Orig Print D/T: (0837) S: PAGE 1 Signed Report - XR CHEST 2 [id number] 10:46:00 [place]: B St: UNK Name: Rich LISA YOUNG [facility] : [birth year] Age/S: 64/M [address] Unit #: [id number] Loc: [place] [address] Phys: Alecia Marrero MD Acct: [id number] Dis Date: Status: UNK PHONE #: [phone] Exam Date: 11/27/20042215 FAX #: [phone] Reason: OR DAY: 1 EXAMS: CPT CODE: [id number] XR CHEST 2 V 11258 DICTATED: 11/28/04, 1046 H ISTORY: TWO VIEWS [...] PULMONARY SCARRING. 4. THOR ACIC SPINE DISH. TT/bimal/79880 Electronical ly Signed by The Munir MONTALVO on 11/28/2004 at 2123 Reporte d and signed by: Harrison Amaral MD CC: Technologist: EVA FUNK RT(R) Trnscrd Date/Time/By: 11/28/2004 (1425) : By: v.EDX.BIMAL/t.SDR.TTR Orig P rint D/T: S: 11/28/2004 (2123) PAGE 1 Signed Report - SP FIRE SAFETY DIRECTOR PEKLGY3503-79-21 11:39:00 Name: LISA GLASER [facility] : 1940 Age/S: 64 / M [address] Unit #: [id number] Loc: [place] [address] Phys: Js Howard MD Acct: [id number] Dis Date: Status: UNK PHONE #: [phone] Exam Date: 11/09/2004 1146 FAX #: [phone] Reason: IGHT/LEFT? L - LEFT EXAMS: CPT CODE: [id number] SP ANGIO A-V SHUNT 65665 [id number] SP FIRE SAFETY DIRECTOR VENOUS 36668 [id number] SP FIRE SAFETY DIRECTOR PERIPH 32732 Fluoro Time: DAP (Gy m2): Air Kerma (mGy): DICTATED: 11/11/04, 1139 CLINICAL INFORMATION: PATIENT WITH END-STAGE RENAL DISEASE PRESENTS WITH A THROMBOSED LEFT FOREARM HEMODIALYSIS GRAFT. (IT RETHROMBOSED AFTER RECENT SURGICAL REVISION) HEMODIALYSIS GRAFT STUDY WITH ADDITIONAL PUNCTURE, CLOT REMOVAL, ANGIOPLASTY OF THE ARTERIAL AND VENOUS ANASTOMOSIS AND VENOGRAM OF THE LEFT UPPER EXTREMITY AND THE CENTRAL VENOUS SYSTEM; CONSCIOUS SEDATION, 11/09/04: CPT 47069 X2, 65262, 37986, 03916, 97122, 29286, 22273, 84575, 48138 PROCEDURE AND FINDINGS: Informed consent was obtained [...] of an .035 Bentson wire and a 6-Ugandan access sheath. The wire and a 5-Ugandan Del Real catheter were then advanced through [...] an .035 guide wire and a short 6-Ugandan access she ath. The guide wire and the Del Real catheter were advanced into the brachial artery. Study of the arterial system showed a patent b rachial artery and patent run-off to the forearm. 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 Thrombectomy of the PAGE 1 Signed Report (CONTINUED) Name: VIRGEN GLASER MARGARITOCheyanne DEGROOT [facility] : 1940 Age/S: 64 / M [address] Unit #: [id number] Loc: [place] [address] Phys: Js Howard MD Acct: [id number] Dis Date: Status: UNK PHONE #: [phone] Exam Date: 11/09/2004 1146 FAX #: [phone] Reason: IGHT /LEFT? L - LEFT EXAMS: CPT CODE: [id number] SP ANGIO A-V SHUNT [id number] SP FIRE SAFETY DIRECTOR VENOUS 75 [id number] SP FIRE SAFETY DIRECTOR PERIPH 47199 Fluoro Time: DAP (Gy m2): Air Kerma [...] Final shunt angiography performed after placing the 5-Ugandan Berstein catheter in the brachial artery showed [...] TAMMY CATHETER. 2. THESE PROCEDURES RESULTED IN ANABAPTISM OF GOOD FLOW THROUGH THE GRAFT WITHGOOD [...] 2 Signed Report (CONTINUED) Name: LISA GLASER [facility] : 1940 Age/S: 64 / M [address] Unit #: [id number] Loc: [place] [address] Phys: Js Leroy MD Acct: [id number] Dis Date: Status: UNK [place] NE #: [phone] Exam Date: 11/09/2004 1146 FAX #: [phone] Reason: IGHT/LEFT? L - LEFT EXAMS: CPT CODE: [id number] SP ANGIO A-V SHUNT 91863 [id number] SP FIRE SAFETY DIRECTOR VENOUS 53129 [id number] SP FIRE SAFETY DIRECTOR PERIPH 14178 Fluoro Time: DAP (Gy m2): A ir Kerma (mGy): <Continued> 6. BECAUSE OF THE SUCCESSFUL DECLOT PROCEDURE, NO CENTRAL VENOUS HEMODIALYSIS CATHETER WAS INSERTED. #67550/32701 at 1918 Reported by: Nicolas Wagner M.D. Signed by: Nicolas Wagner M.D. CC: Js Howard Technologist: ANA WOODWARD; PEBBLES CASTILLO,RT(R) SP; ... Trnscb Date/Time: 11/11/2004 (1202) Kerrie.NASREEN/tSHAHEEDR.GRW/ElaineX.NASREEN Orig Print D/T: (1155) S: PAGE 3 Signed Report - SP ANGIO A-V [id number] 11:39:00 Name: LISA GLASER [facility] : 1940 Age/S: 64 / M [address] Unit #: [id number] Loc: [place] [address] Phys: Js Howard MD Acct: [id number] Dis Date: Status: UNK PHONE #: [phone] Exam Date: 11/09/2004 1146 FAX #: [phone] Reason: IGHT/LEFT? L - LEFT EXAMS: CPT CODE: [id number] SP ANGIO A-V SHUNT [id number] SP FIRE SAFETY DIRECTOR VENOUS 30590 [id number] SP FIRE SAFETY DIRECTOR PERIPH 90802 Fluoro Time: DAP (Gy m2): Air Kerma [...] CENTRAL VENOUS SYSTEM; CONSCIOUS SEDATION, 08/15: CPT 29730 X2, 33584, 06582, 05219, 38112, 01809, 55623, 50170, 9914 1 PROCEDURE AND FINDINGS: Informed consent [...] an .035 Bentson wire and a 6 -Ugandan access sheath. The wire and a 5-Ugandan Del Real catheter were th en advanced [...] an .035 guide wire and a short 6-Ugandan access she ath. The guide wire and the Del Real catheter were advanced into the brachial artery. Study of the arterial system showed a patent b rachial artery and patent run-off to the forearm. 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 Thrombectomy of the PAGE 1 Signed Report (CONTINUED) Name: VIRGEN GLASER [facility] : 1940 Age/S: 64 / M [address] Unit #: [id number] Loc: [place] [address] Phys: Js Howard MD Acct: [id number] Dis Date: Status: UNK PHONE #: [phone] Exam Date: 11/09/2004 1146 FAX #: [phone] Reason: IGHT /LEFT? L - LEFT EXAMS: CPT CODE: [id number] SP ANGIO A-V SHUNT [id number] SP FIRE SAFETY DIRECTOR VENOUS 75 [id number] SP FIRE SAFETY DIRECTOR PERIPH 94288 Fluoro Time: DAP (Gy m2): Air Kerma [...] Final shunt angiography performed after placing the 5-Ugandan Berstein catheter in the brachial artery showed [...] TAMMY CATHETER. 2. THESE PROCEDURES RESULTED IN ANABAPTISM OF GOOD FLOW THROUGH THE GRAFT WITHGOOD [...] 2 Signed Report (CONTINUED) Name: LISA GLASER [facility] : 1940 Age/S: 64 / M [address] [facility] Unit #: [id number] Loc: [place] [address] Phys: Js Leroy MD Acct: [id number] Dis Date: Status: UNK [place] NE #: [phone] Exam Date: 11/09/2004 1146 FAX #: Reason: IGHT/LEFT? L - LEFT EXAMS: CPT CODE: [id number] SP ANGIO A-V SHUNT [id number] SP FIRE SAFETY DIRECTOR VENOUS 13584 [id number] SP FIRE SAFETY DIRECTOR PERIPH 52410 Fluoro Time: DAP (Gy m2): A ir Kerma (mGy): <Continued> 6. BECAUSE OF THE SUCCESSFUL DECLOT PROCEDURE, NO CENTRAL VENOUS HEMODIALYSIS CATHETER WAS INSERTED. #46157/54426 at 1918 Reported by: Nicolas Wagner M.D. Signed by: Nicolas Wagner M.D. CC: Js Howard Technologist: ANA WOODWARD; PEBBLES CASTILLO,RT(R) SP; ... Trnscb Date/Time: 11/11/2004 (1202) v.EDX.DRC/t.SDR.GRW/v.EDX.DRToma Orig Print D/T: (1159) S: PAGE 3 Signed Report - SP FIRE SAFETY DIRECTOR [id number] 11:39:00 Name: LISA GLASER [facility] : 1940 Age/S: 64 / M [address] [facility] Unit #: [id number] Loc: [place] [address] Phys: Js Howard MD Acct: [id number] Dis Date: Status: UNK PHONE #: [phone] Exam Date: 11/09/2004 1146 FAX #: [phone] Reason: IGHT/LEFT? L - LEFT EXAMS: CPT CODE: [id number] SP ANGIO A-V SHUNT 07041 [id number] SP FIRE SAFETY DIRECTOR VENOUS 64636 [id number] SP FIRE SAFETY DIRECTOR PERIPH 38754 Fluoro Time: DAP (Gy m2): Air Kerma (mGy): DICTATED: 11/11/04, 1139 CLINICAL INFORMATION: PATIENT WITH END-STAGE RENAL DISEASE PRESENTS WITH A THROMBOSED LEFT FOREARM HEMODIALYSIS GRAFT. (IT RETHROMBOSED AFTER RECENT SURGICAL REVISION) HEMODIALYSIS GRAFT STUDY WITH ADDITIONAL PUNCTURE, CLOT REMOVAL, ANGIOPLASTY OF THE ARTERIAL AND VENOUS ANASTOMOSIS AND VENOGRAM OF THE LEFT UPPER EXTREMITY AND THE CENTRAL VENOUS SYSTEM; CONSCIOUS SEDATION, 11/09/04: CPT 38833 X2, 15515, 04872, 38919, 86333, 24337, 92517, 36804, 57743 PROCEDURE AND FINDINGS: Informed consent was obtained [...] an .035 Bentson wire and a 6 -Ugandan access sheath. The wire and a 5-Ugandan Del Real catheter were th en advanced [...] an .035 guide wire and a short 6-Ugandan access she ath. The guide wire and the Del Real catheter were advanced into the brachial artery. Study of the arterial system showed a patent b rachial artery and patent run-off to the forearm. 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 Thrombectomy of the PAGE 1 Signed Report (CONTINUED) Name: VIRGEN GLASER [facility] : 1940 Age/S: 64 / M [address] [facility] Unit #: [id number] Loc: [place] [address] Phys: Js Howard MD Acct: [id number] Dis Date: Status: UNK PHONE #: [phone] Exam Date: 11/09/2004 1146 FAX #: [phone] Reason: IGHT /LEFT? L - LEFT EXAMS: CPT CODE: [id number] SP ANGIO A-V SHUNT 24215 [id number] SP FIRE SAFETY DIRECTOR VENOUS 75 978 [id number] SP FIRE SAFETY DIRECTOR PERIPH 19010 Fluoro Time: DAP (Gy m2): Air Kerma [...] Final shunt angiography performed after placing the 5-Ugandan Berstein catheter in the brachial artery showed [...] TAMMY CATHETER. 2. THESE PROCEDURES RESULTED IN ANABAPTISM OF GOOD FLOW THROUGH THE GRAFT WITHGOOD [...] 2 Signed Report (CONTINUED) Name: LISA GLASER [facility] : 1940 [facility]S: 64 / [facility] [address] [facility]: [id number] [place]: [place] [address] Phys: Js Leroy MD Acct: [id number] Dis Date: Status: UNK [place] NE #: [phone] Exam Date: 11/09/2004 1146 FAX #: [phone] Reason: IGHT/LEFT? L - LEFT EXAMS: CPT CODE: [id number] SP ANGIO A-V SHUNT 00096 [id number] SP FIRE SAFETY DIRECTOR VENOUS 56227 [id number] SP FIRE SAFETY DIRECTOR PERIPH 84072 Fluoro Time: DAP (Gy m2): A ir Kerma (mGy): <Continued> 6. BECAUSE OF THE SUCCESSFUL DECLOT PROCEDURE, NO CENTRAL VENOUS HEMODIALYSIS CATHETER WAS INSERTED. #88796/79556 at 1918 Reported by: Nicolas Wagner M.D. Signed by: Nicolas Wagner M.D. CC: Js Howard Technologist: ANA WOODWARD; PEBBLES CASTILLO,RT(R) SP; ... Trnscb Date/Time: 11/11/2004 (3637) v.EDX.NASREEN/tSHAHEEDR.GRBryce/v.EDX.NASREEN Orig Print D/T: (6972) S: PAGE 3 Signed Report - XR CHEST 2 [id number] 13:53:00 FAX: Jose Alejandro Kirk MD [phone] [place]: O St: [facility] FAX: Js Parikh MD [phone] Name: LISA GLASER [facility] : 1940 Age/S: 64/M [address] Unit #: [id number] Loc: [place] [address] Phys: Js Howard MD Acct: [id number] Dis Date: Status: UNK PHONE #: [phone] Exam Date: 10/09/2004 0932 FAX #: [phone] Reason: OR DAY: 1 EXAMS: CPT CODE: [id number] XR CHEST 2 V 10626 DICTATED: 10/09/04, 1353 CLINICAL HISTORY: RENAL FAILUR E. CHEST TWO VIEWS, 10/09/04: The lungs and pl eural spaces are clear but mildly hyperinflated. Heart size is near the u pper limit of normal or slightly large. Focally advanced thoracic spondyl osis and slight scoliosis are noted. IMPRESSION: 1. MILD CARDIOMEGALY. 2. MILD PULMONARY HYPERINFLATION. /waldemar 64303 at 194 Reported and signed b y: Jacky Irving M.D. CC: Jose Alejandro Helm; Js Howard Technologist: PATRICIA SMITH,RT(R) Trnscrd Date/Time/By: 10/09/2004 (1605) : By: ElaineX.WALDEMAR/rozina.BRADX.WALDEMAR Orig Print D/T: (142) S: 10/15/2004 (1948) PAGE 1 Signed Report - XR CHEST 1 [id number] 13:52:00 FAX: Js Parikh MD [phone] [place]: St: [facility] Name: Rich LISA YOUNG [facility] : [birth year] Age/S: 63/M [address] Unit #: [id number] Loc: [place] [address] Phys: Js Howard MD Acct: [id number] Dis Date: Status: [employer] PHONE #: [phone] Exam Date: 06/11/2004 1300 FAX #: [phone] Reason: OR DAY: 1 EXAMS: CPT CODE: [id number] XR CHEST 1 V 66255 DICTATED: 06/11/04, 1352 H ISTORY: CLOTTED GRAFT. [...] THE SUPER IOR VENA CAVA. 4. CARDIOMEGALY. #38774 a t 1106 Reported and signed by: Talat Thorpe M.D. CC: Js Howard Technologis t: PAULA POSADA R.T.(R) Trnscrd Date/Time/By: 06/11/2004 (1452) : By: Joycelyn/YONATHAN Orig Print D/T: (0838) S: 06/15/2004 (1106) PAGE 1 Signed Report - XR CHEST 1 [id number] 18:35:00 FAX: Js Parikh MD [phone] [place]: St: [facility] Name: LISA HERNANDEZ [facility] : [birth year] [facility]S: 63/[facility] [address] [facility] #: [id number] Loc: [place] [address] Phys: Js Howard MD Acct: [id number] Dis Date: Status: UNK PHONE #: [phone] Exam Date: 12/04/2003 181 FAX #: [phone] Reason: OR DAY: 1 EXAMS: CPT CODE: [id number] XR CHEST 1 V 61810 DICTATED: 12/04/03, 1835 RE ASON FOR EXAMINATION: END-STAGE RENAL DISEASE. CHEST X-RAY, 12/03, 1811: CPT 36641 Single supine view of the chest shows hypoa erated lungs without evidence of consolidation or effusion. The heart siz e and pulmonary vasculature are unremarkable. There is a right IJ dialysi s catheter with the tip in the region of the SVC. No evidence of pneumoth orax. IMPRESSION: STATUS POST DIALYSIS CATHETER PLACEMENT WITHOUT EVIDENCE OF PNEUMOTHORAX. #86764 at 1913 Reported and signed by: Manish Shane M.D. CC: Js George Technologist: SHAYNE BELTRAN, RT(R),CT Trnscrd Date/Time/By: 12/05/2003 (1617) : By: Tomas Orig Print D/T: S: 12/05/2003 (1912) PAGE 1 Signed Report - SP FIRE SAFETY DIRECTOR [id number] 11:18:00 Name: LISA GLASER [facility] : 1940 Age/S: 63 / M [address] [facility] #: [id number] Loc: [place] [address] Phys: Nicolas Wagner MD Acct: [id number] Dis Date: Status: UNK PHONE #: [phone] Exam Date: 12/02/2003 1548 FAX #: [phone] Reason: EXAMS: CPT CODE: [id number] SP VENOCAVAGM SUP 22707 [id number] SP ANGIO A-V SHUNT 70733 [id number] SP FIRE SAFETY DIRECTOR VENOUS 42963 [id number] SP FIRE SAFETY DIRECTOR PERIPH 72238 Fluoro Time: DAP (Gy m2): Air Kerma (mGy): DICTATED: 12/04/03, 1118 CLINICAL INFORMATION: PATIENT WITH END-STAGE RENAL DISEASE PRESENTS WITH A THROMBOSED LEFT FOREARM HEMODIALYSIS GRAFT. THE GRAFT WAS PLACED 1.5 YEARS AGO AND HAS BEEN FUNCTIONING WELL UNTIL RECENT THROMBOSIS. HEMODIALYSIS FISTULOGRAM WITH ADDITIONAL PUNCTURE, CLOT REMOVAL, ANGIOPLASTY OF THE ARTERIAL AND VENOUS ANASTOMOSIS AND CENTRAL (SVC) VENOGRAM: CPT 70926 x2, 02483, 45677, 66506, 47818, 00541, 92197, 87233 PROCEDURE AND FINDINGS: After obtaining informed consent the patient was placed supine on the procedure table and his left arm and forearm were prepped and draped in the usual sterile fashion. Xylocaine was administered over the arterial and venous limb of the graft and both limbs were accessed with a micropuncture system followed by insertion of 0.035 guidewires and 6-Ugandan vascular access sheath. The venous limb was positioned medially and the arterial limb laterally (on the radial side of the forearm). A 5-Ugandan Be [employer]ies Smilztein catheter was advanced over a Specialized V[employer] Technologi[employer]on wire into the central aspect of the [...] Signed Report (CONTINUED) Name: LISA DEL RIO [facility] : [birth year] Age/S: 63 / M [address] Unit #: [id number] Loc: [place] [address] Phys: Nicolas Wagner Acct: [id number] Dis Date: Status: UNK PHONE #: Exam Date: 12/02/2003 1548 FAX #: [phone] Re ason: EXAMS: CPT CODE: [id number] SP VENOCAVAGM SUP 68119 [id number] SP ANGIO A-V SHUNT 97486 [id number] SP FIRE SAFETY DIRECTOR VENOUS 75 [phone] [id number] SP FIRE SAFETY DIRECTOR PERIPH 88408 Fluoro Time: DAP (Gy m2): Air Kerma [...] ANGIOPLASTY OF THE ARTERIAL AND VENOUS ANASTOMOSIS. #81115 at 0949 Reported by: Nicolas Wagner M.D. Signed by: Nicolas Wagner M.D. CC: Jose Alejandro Helm; Navid Hess MD Technologist: RIKKI LAURENT, RT(R) SP; ... Trnscb Date/Time: 12/04/2003 (2099) v.EDX.TLB/t.SDR.GRW Orig Print D/T: S: 12/05/2003 (0949) PAGE 2 Signed Report - SP FIRE SAFETY DIRECTOR [id number] 11:18:00 Name: LISA GLASER [facility] : 1940 Age/S: 63 / M [address] Unit #: [id number] Loc: [place] [address] Phys: Nicolas Wagner MD Acct: [id number] Dis Date: Status: UNK PHONE #: [phone] Exam Date: 12/02/2003 1548 FAX #: [phone] Reason: EXAMS: CPT CODE: [id number] SP VENOCAVAGM SUP 68129 [id number] SP ANGIO A-V SHUNT 68608 [id number] SP FIRE SAFETY DIRECTOR VENOUS 92990 [id number] SP FIRE SAFETY DIRECTOR PERIPH 73324 Fluoro Time: DAP (Gy m2): Air Kerma (mGy): DICTATED: 12/04/03, 1118 CLINICAL INFORMATION: PATIENT WITH END-STAGE RENAL DISEASE PRESENTS WITH A THROMBOSED LEFT FOREARM HEMODIALYSIS GRAFT. THE GRAFT WAS PLACED 1.5 YEARS AGO AND HAS BEEN FUNCTIONING WELL UNTIL RECENT THROMBOSIS. HEMODIALYSIS FISTULOGRAM WITH ADDITIONAL PUNCTURE, CLOT REMOVAL, ANGIOPLASTY OF THE ARTERIAL AND VENOUS ANASTOMOSIS AND CENTRAL (SVC) VENOGRAM: CPT 12570 x2, 10043, 72063, 31737, 13961, 37926, 10840, 37075 PROCEDURE AND FINDINGS: After obtaining informed consent the patient was placed supine on the procedure table and his left arm and forearm were prepped and draped in the usual sterile fashion. Xylocaine was administered over the arterial and venous limb of the graft and both limbs were accessed with a micropuncture system followed by insertion of 0.035 guidewires and 6-Ugandan vascular access sheath. The venous limb was positioned medially and the arterial limb laterally (on the radial side of the forearm). A 5-Ugandan Be Kiddies Smilztein catheter was advanced over a Bentson wire [...] Signed Report (CONTINUED) Name: LISA DEL RIO [facility] : [birth year] Age/S: 63 / M [address] Unit #: [id number] Loc: [place] [address] Phys: Nicolas Wagner Acct: [id number] Dis Date: Status: UNK PHONE #: [phone] Exam Date: 12/02/2003 1548 FAX #: [phone] Re ason: EXAMS: CPT CODE: [id number] SP VENOCAVAGM SUP 73896 [id number] SP ANGIO A-V SHUNT 30855 [id number] SP FIRE SAFETY DIRECTOR VENOUS 75 [phone] [id number] SP FIRE SAFETY DIRECTOR PERIPH 89085 Fluoro Time: DAP (Gy m2): Air Kerma [...] ANGIOPLASTY OF THE ARTERIAL AND VENOUS ANASTOMOSIS. #54569 at 0949 Reported by: Nicolas Wagner M.D. Signed by: Nicolas Wagner M.D. CC: Jose Alejandro Helm; Navid Hess MD Technologist: RIKKI LAURENT, RT(R) SP; ... Trnscb Date/Time: 12/04/2003 (2099) v.DENNIS.TLB/t.KATHLEEN.SON Orig Print D/T: S: 12/05/2003 (0949) PAGE 2 Signed Report - VENOCAVAGM [id number] 11:18:00 Name: LISA GLASER [facility] SP : 1940 Age/S: 63 / M [address] Unit #: [id number] Loc: [place] [address] Phys: Nicolas Wagner MD Acct: [id number] Dis Date: Status: UNK PHONE #: [phone] Exam Date: 12/02/2003 1548 FAX #: [phone] Reason: EXAMS: CPT CODE: [id number] SP VENOCAVAGM SUP [id number] SP ANGIO A-V SHUNT 85450 [id number] SP FIRE SAFETY DIRECTOR VENOUS 81881 [id number] SP FIRE SAFETY DIRECTOR PERIPH 16596 Fluoro Time: DAP (Gy m2): Air Kerma (mGy): DICTATED: 12/04/03, 1118 CLINICAL INFORMATION: PATIENT WITH END-STAGE RENAL DISEASE PRESENTS WITH A THROMBOSED LEFT FOREARM HEMODIALYSIS GRAFT. THE GRAFT WAS PLACED 1.5 YEARS AGO AND HAS BEEN FUNCTIONING WELL UNTIL RECENT THROMBOSIS. HEMODIALYSIS FISTULOGRAM WITH ADDITIONAL PUNCTURE, CLOT REMOVAL, ANGIOPLASTY OF THE ARTERIAL AND VENOUS ANASTOMOSIS AND CENTRAL (SVC) VENOGRAM: CPT 24592 x2, 46363, 92330, 45395, 75785, 60088, 40814, 14831 PROCEDURE AND FINDINGS: After obtaining informed consent the patient was placed supine on the procedure table and his left arm and forearm were prepped and draped in the usual sterile fashion. Xylocaine was administered over the arterial and venous limb of the graft and both limbs were accessed with a micropuncture system followed by insertion of 0.035 guidewires and 6-Ugandan vascular access sheath. The venous limb was positioned medially and the arterial limb laterally (on the radial side of the forearm). A 5-Ugandan [facility] catheter was advanced over a Bentson wire [...] Signed Report (CONTINUED) Name: LISA DEL RIO [facility] : [birth year] Age/S: 63 / M [address] [facility] Unit #: [id number] Loc: [place] [address] Phys: Nicolas Wagner Acct: [id number] Dis Date: Status: UNK PHONE #: [phone] Exam Date: 12/02/2003 1548 FAX #: [phone] Re ason: EXAMS: CPT CODE: [id number] SP VENOCAVAGM SUP 72340 [id number] SP ANGIO A-V SHUNT 98116 [id number] SP FIRE SAFETY DIRECTOR VENOUS 75 [phone] [id number] SP FIRE SAFETY DIRECTOR PERIPH 33270 Fluoro Time: DAP (Gy m2): Air Kerma [...] ANGIOPLASTY OF THE ARTERIAL AND VENOUS ANASTOMOSIS. #06712 at 0949 Reported by: Nicolas Wagner M.D. Signed by: Nicolas Wagner M.D. CC: Jose Alejandro Helm; Navid Hess MD Technologist: RIKKI LAURENT, RT(R) SP; ... Trnscb Date/Time: 12/04/2003 (2100) v.EDX.TLB/t.SDR.GRW Orig Print D/T: S: 12/05/2003 (0949) PAGE 2 Signed Report - SP ANGIO A-V [id number] 11:18:00 Name: LISA GLASER [facility] : 1940 Age[facility]S: 63 / M [address] [facility] Unit #: [id number] Loc: [place] [address] Phys: Nicolas Wagner MD Acct: [id number] Dis Date: Status: UNK PHONE #: [phone] Exam Date: 12/02/2003 1540 FAX #: [phone] Reason: EXAMS: CPT CODE: [id number] SP VENOCAVAGM SUP 06090 [id number] SP ANGIO A-V SHUNT 59140 [id number] SP FIRE SAFETY DIRECTOR VENOUS 11236 [id number] SP FIRE SAFETY DIRECTOR PERIPH 61089 Fluoro Time: DAP (Gy m2): Air Kerma (mGy): DICTATED: 12/04/03, 1118 CLINICAL INFORMATION: PATIENT WITH END-STAGE RENAL DISEASE PRESENTS WITH A THROMBOSED LEFT FOREARM HEMODIALYSIS GRAFT. THE GRAFT WAS PLACED 1.5 YEARS AGO AND HAS BEEN FUNCTIONING WELL UNTIL RECENT THROMBOSIS. HEMODIALYSIS FISTULOGRAM WITH ADDITIONAL PUNCTURE, CLOT REMOVAL, ANGIOPLASTY OF THE ARTERIAL AND VENOUS ANASTOMOSIS AND CENTRAL (SVC) VENOGRAM: CPT 15836 x2, 59249, 11376, 43213, 76145, 11242, 02498, 25914 PROCEDURE AND FINDINGS: After obtaining informed consent the patient was placed supine on the procedure table and his left arm and forearm were prepped and draped in the usual sterile fashion. Xylocaine was administered over the arterial and venous limb of the graft and both limbs were accessed with a micropuncture system followed by insertion of 0.035 guidewires and 6-Ugandan vascular access sheath. The venous limb was positioned medially and the arterial limb laterally (on the radial side of the forearm). A 5-Ugandan Kiddies Smilztein catheter was advanced over a Bentson wire [...] Signed Report (CONTINUED) Name: LISA DEL RIO [facility] : [birth year] Age/S: 63 / M [address] [facility] Unit #: [id number] Loc: [place] [address] Phys: Nicolas Wagner Acct: [id number] Dis Date: Status: UNK PHONE #: Exam Date: 12/02/2003 1548 FAX #: [phone] Re ason: EXAMS: CPT CODE: [id number] SP VENOCAVAGM SUP 28763 [id number] SP ANGIO A-V SHUNT 08156 [id number] SP FIRE SAFETY DIRECTOR VENOUS 75 [phone] [id number] SP FIRE SAFETY DIRECTOR PERIPH 36883 Fluoro Time: DAP (Gy m2): Air Kerma [...] ANGIOPLASTY OF THE ARTERIAL AND VENOUS ANASTOMOSIS. #92708 at 0949 Reported by: Nicolas Wagner M.D. Signed by: Nicolas Wagner M.D. CC: Jose Alejandro Helm; Navid Hess MD Technologist: RIKKI LAURENT, RT(R) SP; ... Trnscb Date/Time: 12/04/2003 (2100) v.EDX.TLB/t.SDR.GRW Orig Print D/T: S: 12/05/2003 (3344) PAGE 2 Signed Report - XR CHEST 1 [id number] 11:19:00 FAX: Jose Alejandro Kirk MD [phone] [place]: St: [facility] FAX: Js Parikh MD [phone] Name: LISA GLASER [facility] : 1940 Age/S: 61/M [address] [facility] Unit #: [id number] Loc: [place] [address] Phys: Js Howard MD Acct: [id number] Dis Date: Status: UNK PHONE #: [phone] Exam Date: 03/02/2002829 FAX #: [phone] Reason: ONS: PACU 4 EXAMS: CPT CODE: [id number] XR CHEST 1 V 20199 DICTATED: 03/02/02, 1119 HISTORY: FRONTAL VIEW OF [...] IMPRESSION: NO ACUTE INFILTRATES, EFFUSION OR CONGESTION. #29770 at 1240 Reported and signed by: Talat Thorpe M.D. CC: Jose Alejandro Helm; Js Howard [employer] Technologist: PAULA POSADA R.T.(R) Trnscrd Date/Time/By: 03/02/2002 (1046) : By: Ashish PAGE 1 Signed Report - US EXTREM NON [id number] 08:43:00 Name: LISA GLASER [facility] : 1940 Age/S: 61 / M [address] Unit #: [id number] Loc: [place] [address] Phys: Maninder Hardin MD Acct: [id number] Dis Date: Status: UNK PHONE #: [phone] Exam Date: 02/23/2002 1000 FAX #: [phone] Reason: EXAMS: CPT CODE: [id number] US EXTREM NON VASC 08101 DICTATED: 02/27/02, 0843 CLINICAL INFORMATION: PATIENT IS STATUS POST PLACEMENT OF LEFT FOREARM GRAFT AND PRESENTS WITH CELLULITIS. HE HAS BEEN REFERRED FOR ULTRASOUND AND POSSIBLE FLUID ASPIRATION. ULTRASOUND OF THE LEFT FOREARM, 02/23/02: [id number] FINDINGS: The graft was widely patent with good flow as determined by color Doppler ultrasound. Tissues surrounding the graft is sonographically unremarkable without evidence of a localized fluid collection or of significant inflammatory changes. No needle aspiration was performed. IMPRESSION: 1. PATENT GRAFT WITHOUT SIGNIFICANT ABNORMALITIES OF SURROUNDING SOFT TISSUES BY ULTRASOUND. 2. NO EVIDENCE OF ABSCESS FORMATION. #[id number] at 1850 Reported by: Nicolas Wagner M.D. Signed by: Nicolas Wagner M.D. CC: Jose Alejandro Helm; Js Howard; Maninder Hardin MD Technologist: ELISE WONG RT(R),RDMS Tr nscb Date/Time: 02/27/2002 (0902) Ashish/EugenioGRW PAGE 1 Signed Report - XR CHEST 1 V 2002-02-16 09:47:00 [place]: B St: UNK Name: LISA HERNANDEZ [facility] : [birth year] Age/S: 61/M [address] Unit #: [id number] Loc: [place] [address] Phys: Tika Encinas Acct: [id number] Dis Date: Status: UNK PHONE #: [phone] Exam Date: 02/15/2002924 FAX #: [phone] Reason: ONS: EXAMS: CPT CODE: [id number] XR CHEST 1 V 51334 DICTATED: 02/16/02, 09 HI STORY: PORTABLE CHEST ONE VIEW, 10:19 A.M., 02/15/02: CP T CODE [id number] There is no evidence of active disease involving the lungs, pleura, or mediastinum. The heart size is near the upper limit of normal. Thoracic spondylosis is noted. IMPRESSION: NO ACTIVE CARDIOPULMONARY FINDINGS. at 1309 Reported and signed by: Lawrence Zaldivar C: Technologist: STUDENT TECHNOLOGIST; JACKIE BIGGS R.T.(R) Trnscrd Date/Time/By: 02/16/2002 (1434) : By: EvetteGXE PAGE 1 Signed Report - XR CHEST 2 [id number] 09:22:00 FAX: Jose Alejandro Kirk MD [phone] [place]: O St: UNK FAX: Js Parikh MD [phone] Name: LISA GLASER [facility] : 1940 Age/S: 61/M [address] [facility] Unit #: [id number] Loc: [place] [address] Phys: Js Howard MD Acct: [id number] Dis Date: Status: UNK PHONE #: [phone] Exam Date: 02/09/2002 1607 FAX #: [phone] Reason: ONS: EXAMS: CPT CODE: [id number] XR CHEST 2 V 78702 DICTATED: 02/10/02, 921 HISTORY: CHEST TWO VIEWS 1601 HOURS, 02/09/02: [id number] The lungs and ple ural spaces are clear but mildly hyperinflated. Heart size is near the up per limit of normal. Focally advanced spondylosis is present. IMPRESSION: NO ACTIVE CARDIPULMONARY FINDINGS. NO COMPARISON EXAM SUBMITTED. #[id number] Haley gonzalez Signed by Lawrence Irving on 02/16/2002 at 1147 R eported and signed by: Jacky Irving M.D. CC: Jose Alejandro Helm; Js Howard Technologist: IZABEL MAYA Trnnerd Date/Time/By: 02/10/2002 (1031) : By: jason HADDAD PAGE 1 Signed Report
--- NOTE | 2020-02-11 03:51 | Operative Report ---
DATE OF PROCEDURE: 01/02/2020 SURGEON: Alan Awad MD PREOPERATIVE DIAGNOSES: 1. Urethral stricture disease. 2. Gross hematuria. 3. Urinary tract infection. POSTOPERATIVE DIAGNOSES: 1. Urethral stricture disease. 2. Gross hematuria. 3. Urinary tract infection. 4. Obstructive Benign prostatic hyperplasia. OPERATIONS PERFORMED: 1. Cystourethroscopy with calibration and dilation of urethral stricture (separate procedure performed for the diagnosis of stricture). 2. Cystourethroscopy with bilateral ureteral catheterization and retrograde ureteropyelography (separate procedure performed for the hematuria and urinary tract infections). 3. Interpretation of retrograde ureteropyelography. 4. Supervision of fluoroscopy, no radiologist present. 5. Interpretation of cystography. ANESTHESIA: General. COMPLICATIONS: None. CLINICAL SUMMARY: Otoniel Sepulveda is a 79-year-old man, who has urethral stricture, who has a Beatty catheter placed upon admission. The patient is brought for evaluation. He is aware of the risks of bleeding, infection, injury to adjacent structures, need for further procedures and elected to proceed. PROCEDURE IN DETAIL: Informed consent was verified. Otoniel Sepulveda was properly identified, taken to the operating room, placed on the cystoscopy table in supine position. Anesthesia was uneventfully begun. The patient was then carefully and gently repositioned in dorsal lithotomy position with all pressure points well padded. His genitalia were prepared and draped in usual sterile fashion. The cystoscope sheath with the visual obturator in place was atraumatically inserted in the patient's urethral meatus, but could not easily pass through the fossa navicularis. We then dilated the fossa navicularis stricture, having calibrated it from 18-Kyrgyz in size and dilated to 28-Kyrgyz in size. We then easily able to place the cystoscope sheath and guided down the otherwise unremarkable urethra through the normal sphincteric region through the prostate bed. The prostate bed was significant for being status post a transurethral resection of the prostate. The patient had an excellent transurethral resection of the prostate. The prostate bed was wide open. There was no way we can improve upon this transurethral resection at the present time. Panendoscopy of the bladder revealed erythema, but no suspicious lesions, no tumors. We identified the [place] ureteral orifices, but we could not identify the transplant ureteral orifice. A ureteral catheter was used to cannulate each ureter and retrograde ureteral pyelograms were performed. Interpretation of retrograde ureteropyelography contrast was instilled in retrograde fashion bilaterally. There were no tumors, no stones, no diverticula. Unobstructed drainage was observed bilaterally, fluoroscopically. Both kidneys were atrophic. Through the cystoscope, we injected contrast performed cystography. Interpretation of cystography, the bladder neck and prostate bed were wide open, status post an excellent transurethral resection of the prostate. The bladder was decreased capacity and it was trabeculated. There were small diverticula noted. The patient's bladder was drained. Cystoscope was withdrawn. Belladonna and Opium suppositories were placed, revealing a large at least 40 g prostate, smooth and nonfluctuant without any nodules. The patient was then uneventfully reversed from anesthesia and taken to recovery room in stable condition. There were no complications to the procedure. He tolerated the procedure well. Explicit postop instructions were given. We will follow the patient up in the office and of course on a long-term basis. Alan Awad MD OH/MODL /[id number] cc: Jose Alejandro Helm MD
== END 2020-01-04 13:46 | disposition home or self-care (01) | DRG 872 ==
LOC: ER 12:50 → ERHOLD 16:56 → MED/SURG3 18:24
PROVIDERS: ADMIT Internal Medicine; ATTEND Internal Medicine
PROC: 0T9B70Z Drainage of Bladder with Drainage Device, Via Natural or Artificial Opening (ICD-10-PCS; principal; 2019-12-29)
PROC: 0T7D7ZZ Dilation of Urethra, Via Natural or Artificial Opening (ICD-10-PCS; 2019-12-29)
PROC: BT141ZZ Fluoroscopy of Kidneys, Ureters and Bladder using Low Osmolar Contrast (ICD-10-PCS; 2019-12-29)
DX: A41.9 Sepsis, unspecified organism (principal); N30.00 Acute cystitis without hematuria; Z94.0 Kidney transplant status; N13.8 Other obstructive and reflux uropathy; N41.0 Acute prostatitis; I13.0 Hypertensive heart and chronic kidney disease with heart failure and stage 1 through stage 4 chronic kidney disease, or unspecified chronic kidney disease; Z16.12 Extended spectrum beta lactamase (ESBL) resistance; E78.5 Hyperlipidemia, unspecified; N40.1 Benign prostatic hyperplasia with lower urinary tract symptoms; K59.00 Constipation, unspecified; E87.70 Fluid overload, unspecified; N35.911 Unspecified urethral stricture, male, meatal; E11.21 Type 2 diabetes mellitus with diabetic nephropathy; D64.9 Anemia, unspecified; N26.1 Atrophy of kidney (terminal); N28.1 Cyst of kidney, acquired; I50.9 Heart failure, unspecified; B96.1 Klebsiella pneumoniae [K. pneumoniae] as the cause of diseases classified elsewhere; N18.3 Chronic kidney disease, stage 3 (moderate); Z79.4 Long term (current) use of insulin; Z11.59 Encounter for screening for other viral diseases; Z89.422 Acquired absence of other left toe(s); Z89.511 Acquired absence of right leg below knee
CPT/HCPCS: 36415; 71250; 74176; 74420; 80048; 80053; 81001; 82948; 83036; 83605; 84443; 85025; 87040; 87071; 87086; 87186; 87205; 96372; 97139; 99284; C1758; J1100; J1815; J2001; J2250; J2405; J3010; J7030; J7050; J7512; J7515; U0002

== ENCOUNTER 2020-05-26 16:49 | Emergency (ER) | payer MEDICARE ==
[~2020-05-26] VITALS: Ht 167.6 cm; Wt 68.0 kg
[2020-05-26] MEDS ORDERED: SODIUM CHLORIDE FLUSH 10 ML SYR INJ PRN (17:15)
[2020-05-26] MEDS ORDERED: VANCOMYCIN 1GM/NS 250 ML 250 ML IV ONE (17:15)
[2020-05-26] MEDS ORDERED: PIPER-TAZ 3.375 GM 50 ML IV ONE (17:15)
[2020-05-26] MEDS ORDERED: CRESTOR10 MG (17:16)
[2020-05-26] MEDS ORDERED: ELIQUIS2.5 MG (17:16)
[2020-05-26] MEDS ORDERED: PLAVIX75 MG PO (17:16)
[2020-05-26] MEDS ORDERED: FLOMAX0.4 MG PO (17:16)
[2020-05-26] MEDS ORDERED: FINASTERIDE1 MG (17:16)
[2020-05-26] MEDS ORDERED: PANTOPRAZOLE SO40 MG PO (17:16)
--- NOTE | 2020-05-26 17:28 | Emergency Department Note ---
History of Present Illnes History of Present Illness Chief Complaint: fever 100.4 History of Present Illness This is a 79 year old male. dx cva (persistent expressive aphasia). 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 Any updates have been documented here. Past Medical History Past Medical History: Hypertension, Diabetes, CVA, UTI's, ESRD, Hyperlipedemia Other Medical History: Aphasia Past Surgical History: Cataract Removal Other Surgery: right leg AKA kidney transplant 2005 fistula Left arm Social History Smoking Cessation: Never Smoker Counseling Performed: No Physically hurt or threatened: No Other Last Tetanus: unk Review of Systems Review of Systems Constitutional: Reports as per HPI EENTM: Reports no symptoms Cardiovascular: Reports no symptoms Respiratory: Reports as per HPI Gastrointestinal: Reports as per HPI Genitourinary: Reports no symptoms Musculoskeletal: Reports no symptoms Integumentary: Reports no symptoms Neurological: Reports no symptoms Psychological: Reports no symptoms Endocrine: Reports no symptoms Hematological/Lymphatic: Reports no symptoms Review of other systems: All other systems negative Physical Exam Related Data Allergies: Coded Allergies: No Known Allergies (Verified , 11/24/15) Vital signs reviewed: Yes Physical Exam CONSTITUTIONAL Constitutional: Present well-developed, Present well-nourished HENT HENT: Present normocephalic, Present atraumatic, Present oropharynx clear/moist, Present nose normal HENT L/R: Present left ext ear normal, Present right ext ear normal EYES Eyes: Reports PERRL, Reports conjunctivae normal NECK Neck: Present ROM normal PULMONARY Pulmonary: Present effort normal, Present rhonchi CARDIOVASCULAR Cardiovascular: Present irregular rhythm (IRREGULAR IRREGULAR RATE AND RHYTHM), Present heart sounds normal, Present intact distal pulses, Present capillary refill normal, Present normal rate GASTROINTESTINAL Abdominal: Present soft, Present nontender, Present bowel sounds normal GENITOURINARY Genitourinary: Present exam deferred SKIN Skin: Present warm, Present dry MUSCULOSKELETAL Musculoskeletal: Present ROM normal, Present other (rgt bka) NEUROLOGICAL Neurological: Present alert, Present oriented x 3, Present no gross motor or sensory deficits PSYCHOLOGICAL Psychological: Present mood/affect normal, Present judgement normal Results Laboratory Lab results reviewed: Yes Laboratory comments CBC NORMAL EXCEPT WBC 10.7, HGB 12.6, PLT 134BMP NORMAL, LFT NORMAL EXCEPT ELEVATED ALT/AST/GGT, LOW ALBUMIN, CARDIAC ENZYMES NL EXCEPT MYOGLOBIN 369, BNP= 867., UA= +LEUK/LARGE BLOOD, LACTIC ACID=2.3, covid negative Imaging Imaging results reviewed: Yes Impressions [place] [address] Patient Name: LISA GLASER MR #: [id number] : 1940 Age/Sex: 79/M Req #: [id number] Adm Physician: Ordered by: ASHLEY SANTACRUZ Report #: [id number] [facility] Room/Bed: Procedure: [id number] HOPD/CXR 1 VEW - HOPD Exam Date: 05/26/20 Exam Time: 1733 REPORT STATUS: Signed EXAMINATION: CXR 1 VEW - HOPD INDICATION: ^fever ^[id number] ^1733 COMPARISON: None FINDINGS: TUBES and LINES: None. LUNGS: Normal lung volumes. There is diffuse interstitial prominence and hazy opacification the bilateral lung bases. PLEURA: There is small left pleural effusion with superimposed atelectasis. No pneumothorax. HEART AND MEDIASTINUM: The cardiomediastinal silhouette is obscured. There are atherosclerotic calcifications within the aorta. BONES AND SOFT TISSUES: No acute osseous lesion. Soft tissues are unremarkable. UPPER ABDOMEN: No free air under the diaphragm. IMPRESSION: 1. Diffuse interstitial prominence and hazy opacification the bilateral lung bases. Constellation of findings may represent atelectasis and/or multifocal pneumonia in the proper clinical context. 2. Small left pleural effusion with superimposed compressive atelectasis. Signed by: Nadia Marques MD on 05/26/2020 7:29 PM Dictated By: NADIA MARQUES MD 28 Transcribed By: DEMOND on 05/26/201928 COPY TO: ASHLEY SANTACRUZ~ [place] [address] Patient Name: LISA GLASER MR #: [id number] : 1940 Age/Sex: 79/M Req #: [id number] Adm Physician: Ordered by: ASHLEY SANTACRUZ Report #: [id number] [facility] Room/Bed: Procedure: [id number] HOPD/CT CHEST W/O CONTRAST-HOPD Exam Date: 05/26/20 Exam Time: 1827 REPORT STATUS: Signed EXAM: CT Chest, Abdomen and Pelvis WITHOUT contrast INDICATION: ^fever, nausea/vomiting ^20200526 ^1827 COMPARISON: CT chest abdomen and pelvis on 12/28/2019 TECHNIQUE: Chest, abdomen and pelvis were scanned utilizing a multidetector helical scanner from the lung apex to the pubic symphysis without administration of IV contrast. Absence of intravenous contrast decreases sensitivity for detection of focal lesions and vascular pathology. Coronal and sagittal reformations were obtained. Routine protocol was performed. IV CONTRAST: None ORAL CONTRAST: Water COMPLICATIONS: None RADIATION DOSE: Total DLP: 1170 mGy*cm Estimated effective dose: (DLP x 0.015 x size factor) mSv CTDIvol has been reviewed. It is below the limits set by the Radiation Protocol Committee (RPC). Dose modulation, iterative reconstruction, and/or weight based adjustment of the mA/kV was utilized to reduce the radiation dose to as low as reasonably achievable. FINDINGS: LINES and TUBES: Beatty catheter which terminates in the urinary bladder lumen. LUNGS , PLEURA AND AIRWAYS: There is right basilar atelectasis and trace loculated pleural effusion on the right. There is redemonstration of moderate left pleural effusion with superimposed compressive atelectasis and partial left lower lobe collapse. There is also subsegmental atelectasis of the posterior left upper lobe. There are debris within the mid to lower trachea. HEART AND MEDIASTINUM: The thyroid gland is normal. No mediastinal, hilar or axillary lymphadenopathy. However, there are multiple calcified mediastinal and hilar nodes likely from prior granulomatous infection. The heart is mildly enlarged with pericardial effusion which is unchanged from prior exam. There is severe atherosclerotic calcification of the coronary arteries and thoracic aortic arch extending into its branch vessels. HEPATOBILIARY: No focal hepatic lesions. No biliary ductal dilation. GALLBLADDER: No radio-opaque stones or sludge. No wall thickening. SPLEEN: No splenomegaly. PANCREAS: There is a hypoattenuating pancreatic head mass which measures approximately 3.3 x 3.1 cm (series 2 image 128). No pancreatic ductal dilatation. ADRENALS: No adrenal nodules KIDNEYS/URETERS: The [place] kidneys are atrophic bilaterally. There is a 5 cm] renal cyst which is unchanged. 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 No stones. GI TRACT: There is well formed impacted stool in the rectum and sigmoid colon with associated mucosal wall thickening. There is also well-formed stool throughout the remaining colon without impaction. No abnormal distention, wall thickening, or evidence of bowel obstruction. Appendix is normal. PELVIC ORGANS/BLADDER: The urinary bladder is decompressed. No gross abnormality in the pelvis. LYMPH NODES: There are multiple prominent mesenteric lymph nodes, none of which meet criteria for pathologic enlargement and likely reactive. VESSELS: There is moderate atherosclerotic disease in the aorta and major arterial branches. PERITONEUM / RETROPERITONEUM: No free air or fluid. There is somewhat ellis appearance of the mesenteric fat and stranding around the transplanted pelvic kidney. BONES: There are degenerative changes in the spine and diffuse etiopathic skeletal hyperostosis. SOFT TISSUES: The esophagus appears patulous as before. There is diffuse anarsarca. IMPRESSION: 1. Trace right loculated pleural effusion with superimposed atelectasis. 2. Redemonstration of moderate left pleural effusion with superimposed compressive atelectasis and partial left lower lobe collapse. 3. Multiple calcified mediastinal and hilar nodes likely from prior granulomatous infection. 4. Mild cardiomegaly with pericardial effusion. Findings suggestive of fluid overload state characterize by diffuse anasarca, ellis appearance of the mesenteric fat. 5. Severe atherosclerotic calcification of the coronary arteries and thoracic aortic arch extending into its branch vessels. 6. Hypoattenuating pancreatic head mass which measures approximately 3.3 x 3.1 cm, suspicious for malignancy. Recommend further evaluation with MRI of the abdomen (pancreas mass protocol). 7. 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 This may be related to inflammation or infection. Correlate for renal function. Signed by: Nadia Marques MD on 05/26/2020 8:06 PM Dictated By: NADIA MARQUES MD 05 Transcribed By: DEMOND on 05/26/202005 COPY TO: ASHLEY SANTACRUZ~ Diagnostics Tests Diagnostic test(s) reviewed: Yes Procedures 12 Lead ECG Interpretation ECG Interpretation : ECG: ECG 1 Date: May 26, 2020 Time: 17:46 Rhythm: atrial fibrillation BPM: 71 QRS axis: normal ST segments normal: Yes T waves normal: Yes Clinical Impression: abnormal ECG (ATRIAL FIBRILLATION) Critical Care Time Comments SPOKE TO DR PEPE NELSON -HOSPITALIST AT [facility]- AT 1930HRS AND ACCEPTS TRANSFER OF PT Assessment & Plan Medical Decision Making MDM see below Assessment & Plan Final Impression: (1) Sepsis (2) Pneumonia (3) UTI (urinary tract infection) (4) Dehydration (5) Elevated LFTs (6) Chronic atrial fibrillation (7) CHF (congestive heart failure) (8) Pleural effusion (9) Pericardial effusion (10) Pancreatic mass Home Meds Reported Medications Tamsulosin Hcl* (FLOMAX*) 0.4 Mg Cap, 0.4 MG PO DAILY, #30 CAP 05/26/20 Clopidogrel Bisulfate* (PLAVIX) 75 Mg Tablet, 75 MG PO DAILY, #30 TAB 05/26/20 Apixaban (Eliquis) 2.5 Mg Tablet, BID 05/26/20 Rosuvastatin Calcium (CRESTOR) 10 Mg Tab, 40 HS THERAPEUTICALLY SUBSTITUTED WITH SIMVASTATIN 40MG 05/26/20 Pantoprazole Sodium* (PROTONIX) 40 Mg Tablet.dr, 40 MG PO, TAB 05/26/20 Finasteride (Finasteride) 1 Mg Tablet, 5 DAILY 05/26/20 Spring-3 Fatty Acids (OMEGA-3) 1,000 Mg Capsule, 300 MG PO DAILY 10/17/19 Insulin Detemir (LEVEMIR) 100 Unit/1 Ml Vial, SC HS 10/19/18 Calcium Carbonate (TUMS) 200 Mg Tab.chew, PO DAILY 10/19/18 Cholecalciferol (Vitamin D3) (VITAMIN D3) 1,000 Unit Tablet, 2 CAP PO DAILY 01/26/16 Metoprolol Succinate (METOPROLOL SUCCINATE) 50 Mg Tab.er.24h, 100 MG PO BID, MG 01/26/16 Insulin Aspart (NOVOLOG) 100 Unit/1 Ml Cartridge, SC TIDWM 11/24/15 Alendronate Sodium (ALENDRONATE SODIUM) 70 Mg Tablet, 70 MG PO UD once a week on wednesdays11/24/15 Torsemide (TORSEMIDE) 10 Mg Tablet, 10 MG PO BID 11/24/15 Sirolimus (RAPAMUNE) 1 Mg Tablet, 1 MG PO DAILY 11/24/15 Prednisone (PREDNISONE) 5 Mg Tablet, 5 MG PO DAILY 11/24/15 Losartan Potassium (LOSARTAN POTASSIUM) 25 Mg Tablet, 25 MG PO DAILY 11/24/15 Nifedipine (NIFEDIPINE) 20 Mg Capsule, 90 MG PO DAILY 11/24/15 Cyclosporine (CYCLOSPORINE) 25 Mg Capsule, 25 MG PO BID, #30 CAP take 2 tabs in am and one tab in PM 11/24/15 Discontinued Reported Medications Sulfamethoxazole/Trimethoprim (SULFAMETHOXAZOLE-TMP DS TABLET) 1 Each Tablet, 1 TAB PO DAILY 10/19/18 Pravastatin Sodium (PRAVASTATIN SODIUM) 10 Mg Tablet, 10 MG PO HS 11/24/15 Medications in the ED Sodium Chloride 10 ml PRN PRN INJ IV SITE FLUSH; Start 05/26/20 at 17:15; Stop 06/25/20 at 17:14 Piperacillin Sod/ Tazobactam Sod 50 ml @ 100 mls/hr ONCE ONCE IV ; Start 05/26/20 at 17:15; Stop 05/26/20 at 17:44 Vancomycin HCl 250 ml @ 167 mls/hr ONCE ONCE IV ; Start 05/26/20 at 17:15; Stop 05/26/20 at 18:44 ASHLEY SANTACRUZ May 26, 2020 17:28
--- OUTSIDE RECORDS SUMMARY | 2020-05-26 17:41 | XMS REPORT | Clinical Summary ---
Author Author [facility] Address Unknown Phone Unavailable Care Team Providers Care Equal Employment Opportunity Officer Name Role Phone PCP Unavailable Allergies No Known Allergies Medications End Date Status Medication Sig Dispensed Refills Start Date Active cycloSPORINE (SANDIMMUNE) Take 50 mg by 0 25 MG capsule mouth once in morning. Active cycloSPORINE modified Take 25 mg by 0 (NEORAL) 25 MG capsule mouth once in evening. Active sirolimus (RAPAMUNE) 1 MG Take 1 mg by 0 tablet mouth daily. Active predniSONE (DELTASONE) 5 Take 5 mg by 0 MG tablet mouth daily. Active metoprolol tartrate Take 100 mg 0 (LOPRESSOR) 100 MG tablet by mouth 2 (two) times daily. Active NIFEdipine (ADALAT CC) 90 Take 90 mg by 0 MG 24 hr tablet mouth daily. Active alendronate (FOSAMAX) 70 Take 70 mg by 0 MG tablet mouth every 7 days Take in the morning with a full glass of water, on an empty stomach, and do not take anything else by mouth or lie down for the next 30 min. . Active torsemide (DEMADEX) 10 MG Take 10 mg by 0 tablet mouth 2 (two) times daily. Active tamsulosin (FLOMAX) 0.4 Take 0.4 mg 0 mg Cap 24 hr capsule by mouth daily. 02/26/2021 Active cycloSPORINE modified Take 1 90 capsule 0 02/08 (NEORAL) 25 MG capsule capsule (25 0 mg total) by mouth 2 (two) times daily. Active apixaban (ELIQUIS) 5 mg Take 1 tablet 90 tablet 3 Tab tablet (5 mg total) 0 by mouth 2 (two) times daily. 02/27/2021 Active clopidogreL (PLAVIX) 75 Take 1 tablet 90 tablet 0 mg tablet (75 mg total) 0 by mouth daily. 02/27/2021 Active finasteride (PROSCAR) 5 Take 1 tablet 0 mg tablet (5 mg total) 0 by mouth daily. 02/21/2021 Active ipratropium-albuteroL Take 3 mLs by 0 02/27/20 2 (DUO-NEB) 0.5 mg-3 mg(2.5 nebulization 0 mg base)/3 mL nebulizer every 4 solution (four) hours for 360 days. 02/26/2021 Active rosuvastatin (CRESTOR) 40 Take 1 tablet 0 02/08 MG tablet (40 mg total) 0 by mouth nightly. Active insulin detemir U-100 Inject 0.12 7 mL 0 02/08 (LEVEMIR) 100 unit/mL (3 mLs (12 Units 0 mL) InPn injection total) subcutaneousl y 2 (two) times daily. Active insulin aspart U-100 Inject 5 10 mL 0 02/26 (NOVOLOG) 100 unit/mL Units 0 injection subcutaneousl y 3 (three) times daily before meals. 02/15/2020 Discontinued predniSONE (DELTASONE) 5 TAKE 1 TABLET 90 tablet 0 0311/201 MG tablet BY MOUTH 3 DIRECTED 02/15/2020 Discontinued predniSONE (DELTASONE) 5 TAKE 1 TABLET 90 tablet 0 10/13/201 MG tablet BY MOUTH 3 DIRECTED 02/15/2020 Discontinued NIFEdipine (PROCARDIA-XL) TAKE 1 TABLET 90 tablet 0 90 MG (OSM) 24 hr tablet BY MOUTH 3 EVERY DAY 02/15/2020 Discontinued (Therapy comple sendy) sulfamethoxazole-trimetho TAKE 1 TABLET 90 tablet 0 prim (BACTRIM,SEPTRA) BY MOUTH 3 400-80 mg per tablet EVERY DAY 02/15/2020 Discontinued predniSONE (DELTASONE) 5 TAKE 1 TABLET 90 tablet 0 04/10/201 MG tablet BY MOUTH BY 3 MOUTH DIRECTED 02/27/2020 Discontinued (Reorder) insulin detemir U-100 Inject 0 (LEVEMIR) 100 unit/mL (3 subcutaneousl mL) InPn injection y nightly. 02/27/2020 Discontinued (Reorder) insulin aspart U-100 Inject 0 (NOVOLOG) 100 unit/mL subcutaneousl injection y 3 (three) times daily before meals. 02/27/2020 Discontinued (Stop Taking at Discharge) losartan (COZAAR) 25 MG Take 25 mg by 0 tablet mouth daily. 02/27/2020 Discontinued (Stop Taking at Discharge) pravastatin (PRAVACHOL) Take 10 mg by 0 10 MG tablet mouth daily. Active Problems Problem Noted Date Acute pulmonary edema 02/17/2020 Acute ischemic stroke 02/16/2020 Cerebral edema 02/16/2020 Aphasia 02/16/2020 Essential hypertension 02/16/2020 Peripheral artery disease 02/16/2020 Poorly controlled diabetes mellitus 02/16/2020 Paroxysmal atrial fibrillation 02/16/2020 Cerebrovascular accident (CVA) due to occlusion of le ft middle cerebral 02/15/2020 artery Encounters Care Team Description Date Type Specialty 02/18/2020 Travel Laura Ritchie MD Vences, Wendy Diaz, CRNA 02/15/2020 Anesthesia Event Virtual, Surgeon PROCEDURE DONE OUTSIDE OR 02/15/2020 Surgery Ross Coffey MD Shah, Kavita K, MD Melancon, MD Mina Hernandez Omar, MD Venkatasubba Rao, Caro Vasquez MD Cerebrovascular accident (CVA) due to occlusion of left middle cerebral artery (HCC) (Primary Dx); Aphasia; Right sided weakness; Acute ischemic stroke (HCC); Cerebral edema (HCC); Essential hypertension; Peripheral artery disease (HCC); Poorly controlled diabetes mellitus (HCC); Acute pulmonary edema (HCC); Paroxysmal atrial fibrillation (HCC); Other hypervolemia; Pericardial effusion; Atrial fibrillation, unspecified type (HCC); Renal transplant recipient; Type 2 diabetes mellitus with other specified complication, with long-term current use of insulin (HCC); Abrasion of right upper extremity, initial encounter; Infection due to ESBL-producing Klebsiella pneumoniae; Acute cystitis without hematuria; Urinary retention; 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 02/15/2020 Hospital General Internal Nh lorna - Encounter 02/27/2020 02/15/2020 Orders Only General Internal N[facility] Bailey Figueredo, GERARDO 10/25/2019 Documentation Transplant after 05/26/2019 Social History Date Tobacco Use Types Packs/Day Years Used Former Smoker Smokeless Tobacco: Never Used Sex Assigned at Date Recorded Not on file Last Filed Vital Signs Reading Time Taken Comments Vital Sign 120/57 02/27/2020 4:42 PM CDT Blood Pressure 82 02/27/2020 4:42 PM CDT Pulse 36.4 C (97.5 F) 02/27/2020 4:42 PM CDT Temperature 18 02/27/2020 4:42 PM CDT Respiratory Rate 100% 02/27/2020 4:42 PM CDT Oxygen Saturation 21% 02/25/2020 7:57 PM CDT Inhaled Oxygen Concentration 74.4 kg (164 lb 0.4 oz) 02/27/2020 5:00 AM CDT Weight - - Height - - Body Mass Index Plan of Treatment Health Maintenance Due Date Last Done Comments DIABETIC EYE EXAM 1950 DIABETIC FOOT EXAM 1950 URINE MICROALBUMIN 1950 MEDICARE ANNUAL WELLNESS 07/12/2019 (YEAR 2 or FIRST YEAR if no IPPE) INFLUENZA VACCINE (#1) 2020 02/27/2019 HEMOGLOBIN A1C 08/18/2020 02/16/2020 PNEUMOCOCCAL 65+ YRS Completed 01/23/2016 Procedures Comments Procedure Name Priority Date/Time Associated Diag nosis RHYTHM STRIP - SCAN 02/28/2020 1:31 PM CDT UROLOGY REPORT - SCAN 02/28/2020 1:31 PM CDT REPORT OF PROCEDURE - 02/28/2020 ENDOSCOPY SCAN 1:31 PM CDT POCT-GLUCOSE METER Routine 02/27/2020 5:10 PM CDT POCT-GLUCOSE METER Routine 02/27/2020 12:14 PM CDT POCT-GLUCOSE METER Routine 02/27/2020 8:44 AM CDT CBC W/PLT COUNT & AUTO Routine 02/27/2020 DIFFERENTIAL 4:42 AM CDT SIROLIMUS LEVEL Routine 02/27/2020 4:42 AM CDT CYCLOSPORINE LEVEL Routine 02/27/2020 4:42 AM CDT BASIC METABOLIC PANEL (7) Routine 02/27/2020 4:42 AM CDT CBC W/PLT COUNT & AUTO Routine 02/27/2020 DIFFERENTIAL 4:42 AM CDT POCT-GLUCOSE METER Routine 02/26/2020 9:54 PM CDT POCT-GLUCOSE METER Routine 02/26/2020 5:38 PM CDT POCT-GLUCOSE METER Routine 02/26/2020 11:16 AM CDT POCT-GLUCOSE METER Routine 02/26/2020 8:51 AM CDT CBC W/PLT COUNT & AUTO Routine 02/26/2020 DIFFERENTIAL 4:26 AM CDT SIROLIMUS LEVEL Routine 02/26/2020 4:26 AM CDT CYCLOSPORINE LEVEL Routine 02/26/2020 4:26 AM CDT BASIC METABOLIC PANEL (7) Routine 02/26/2020 4:26 AM CDT CBC W/PLT COUNT & AUTO Routine 02/26/2020 DIFFERENTIAL 4:26 AM CDT POCT-GLUCOSE METER Routine 02/25/2020 10:02 PM CDT POCT-GLUCOSE METER Routine 02/25/2020 5:53 PM CDT POCT-GLUCOSE METER Routine 02/25/2020 11:41 AM CDT POCT-GLUCOSE METER Routine 02/25/2020 9:03 AM CDT CBC W/PLT COUNT & AUTO Routine 02/25/2020 DIFFERENTIAL 4:50 AM CDT BASIC METABOLIC PANEL (7) Routine 02/25/2020 4:50 AM CDT CBC W/PLT COUNT & AUTO Routine 02/25/2020 DIFFERENTIAL 4:50 AM CDT POCT-GLUCOSE METER Routine 02/24/2020 9:44 PM CDT POCT-GLUCOSE METER Routine 02/24/2020 5:52 PM CDT POCT-GLUCOSE METER Routine 02/24/2020 2:46 PM CDT POCT-GLUCOSE METER Routine 02/24/2020 11:36 AM CDT CBC W/PLT COUNT & AUTO Routine 02/24/2020 DIFFERENTIAL 6:20 AM CDT BASIC METABOLIC PANEL (7) Routine 02/24/2020 6:20 AM CDT CBC W/PLT COUNT & AUTO Routine 02/24/2020 DIFFERENTIAL 6:20 AM CDT POCT-GLUCOSE METER Routine 02/23/2020 9:06 PM CDT POCT-GLUCOSE METER Routine 02/23/2020 5:23 PM CDT POCT-GLUCOSE METER Routine 02/23/2020 1:10 PM CDT POCT-GLUCOSE METER Routine 02/23/2020 7:54 AM CDT CBC W/PLT COUNT & AUTO Routine 02/23/2020 DIFFERENTIAL 5:02 AM CDT BASIC METABOLIC PANEL (7) Routine 02/23/2020 5:02 AM CDT CBC W/PLT COUNT & AUTO Routine 02/23/2020 DIFFERENTIAL 5:02 AM CDT POCT-GLUCOSE METER Routine 02/22/2020 11:03 PM CDT POCT-GLUCOSE METER Routine 02/22/2020 6:11 PM CDT SARS-COV2/RT-PCR ([facility] & STAT 02/22/2020 REF LABS) 4:57 PM CDT POCT-GLUCOSE METER Routine 02/22/2020 1:05 PM CDT REPORT OF PROCEDURE - 02/22/2020 ENDOSCOPY SCAN 10:22 AM CDT POCT-GLUCOSE METER Routine 02/22/2020 8:40 AM CDT CBC W/PLT COUNT & AUTO Routine 02/22/2020 DIFFERENTIAL 4:49 AM CDT BASIC METABOLIC PANEL (7) Routine 02/22/2020 4:49 AM CDT CBC W/PLT COUNT & AUTO Routine 02/22/2020 DIFFERENTIAL 4:49 AM CDT POCT-GLUCOSE METER Routine 02/21/2020 9:11 PM CDT POCT-GLUCOSE METER Routine 02/21/2020 5:29 PM CDT POCT-GLUCOSE METER Routine 02/21/2020 1:45 PM CDT 2D ECHO W/ DOPPLER Routine 02/21/2020 (CW/PW/COLOR) 12:34 PM CDT POCT-GLUCOSE METER Routine 02/21/2020 8:[address] CHEST WITHOUT IV Routine 02/21/2020 CONTRAST 5:42 AM CDT CBC W/PLT COUNT & AUTO Routine 02/21/2020 DIFFERENTIAL 5:22 AM CDT CYCLOSPORINE LEVEL Routine 02/21/2020 5:22 AM CDT SIROLIMUS LEVEL Routine 02/21/2020 5:22 AM CDT BASIC METABOLIC PANEL (7) Routine 02/21/2020 5:22 AM CDT CBC W/PLT COUNT & AUTO Routine 02/21/2020 DIFFERENTIAL 5:22 AM CDT POCT-GLUCOSE METER Routine 02/20/2020 9:11 PM CDT POCT-GLUCOSE METER Routine 02/20/2020 6:08 PM CDT POCT-GLUCOSE METER Routine 02/20/2020 12:10 PM CDT POCT-GLUCOSE METER Routine 02/20/2020 8:18 AM CDT CBC W/PLT COUNT & AUTO Routine 02/20/2020 DIFFERENTIAL 5:27 AM CDT BASIC METABOLIC PANEL (7) Routine 02/20/2020 5:27 AM CDT CBC W/PLT COUNT & AUTO Routine 02/20/2020 DIFFERENTIAL 5:27 AM CDT POCT-GLUCOSE METER Routine 02/19/2020 9:11 PM CDT POCT-GLUCOSE METER Routine 02/19/2020 5:37 PM CDT MR BRAIN WITHOUT IV Routine 02/19/2020 CONTRAST 4:18 PM CDT POCT-GLUCOSE METER Routine 02/19/2020 11:29 AM CDT POCT-GLUCOSE METER Routine 02/19/2020 9:27 AM CDT POCT-GLUCOSE METER Routine 02/19/2020 8:49 AM CDT CBC W/PLT COUNT & AUTO Routine 02/19/2020 DIFFERENTIAL 4:34 AM CDT C-REACTIVE PROTEIN Routine 02/19/2020 4:34 AM CDT ANTI-NUCLEAR ANTIBODY Routine 02/19/2020 (JACKIE) 4:34 AM CDT SIROLIMUS LEVEL Routine 02/19/2020 4:34 AM CDT CYCLOSPORINE LEVEL Routine 02/19/2020 4:34 AM CDT BASIC METABOLIC PANEL (7) Routine 02/19/2020 4:34 AM CDT CBC W/PLT COUNT & AUTO Routine 02/19/2020 DIFFERENTIAL 4:34 AM CDT POCT-GLUCOSE METER Routine 02/18/2020 9:28 PM CDT POCT-GLUCOSE METER Routine 02/18/2020 5:38 PM CDT POCT-GLUCOSE METER Routine 02/18/2020 11:18 AM CDT POCT-GLUCOSE METER Routine 02/18/2020 7:56 AM CDT CBC W/PLT COUNT & AUTO Routine 02/18/2020 DIFFERENTIAL 3:30 AM CDT SIROLIMUS LEVEL Routine 02/18/2020 3:30 AM CDT CYCLOSPORINE LEVEL Routine 02/18/2020 3:30 AM CDT BASIC METABOLIC PANEL (7) Routine 02/18/2020 3:30 AM CDT CBC W/PLT COUNT & AUTO Routine 02/18/2020 DIFFERENTIAL 3:30 AM CDT POCT-GLUCOSE METER Routine 02/17/2020 10:23 PM CDT POCT-GLUCOSE METER Routine 02/17/2020 5:03 PM CDT BASIC METABOLIC PANEL (7) Routine 02/17/2020 5:01 PM CDT POCT-GLUCOSE METER Routine 02/17/2020 11:09 AM CDT POCT-GLUCOSE METER Routine 02/17/2020 8:00 AM CDT BLOOD GAS, ARTERIAL Routine 02/17/2020 7:23 AM CDT KETONE, BLOOD Routine 02/17/2020 6:45 AM CDT POCT-GLUCOSE METER Routine 02/17/2020 6:33 AM CDT XR CHEST 1 VIEW STAT 02/17/2020 PORTABLE/BEDSIDE 6:29 AM CDT CBC W/PLT COUNT & AUTO Routine 02/17/2020 DIFFERENTIAL 5:50 AM CDT SIROLIMUS LEVEL Routine 02/17/2020 5:50 AM CDT CYCLOSPORINE LEVEL Routine 02/17/2020 5:50 AM CDT BASIC METABOLIC PANEL (7) Routine 02/17/2020 5:50 AM CDT CBC W/PLT COUNT & AUTO Routine 02/17/2020 DIFFERENTIAL 5:50 AM CDT POCT-GLUCOSE METER Routine 02/16/2020 10:39 PM CDT POCT-GLUCOSE METER Routine 02/16/2020 5:22 PM CDT POCT-GLUCOSE METER Routine 02/16/2020 11:50 AM CDT SIROLIMUS LEVEL Routine 02/16/2020 9:08 AM CDT URINALYSIS W/ REFLEX STAT 02/16/2020 URINE CULTURE 9:08 AM CDT URINE CULTURE STAT 02/16/2020 9:08 AM CDT POCT-GLUCOSE METER Routine 02/16/2020 7:47 AM CDT POCT-GLUCOSE METER Routine 02/16/2020 6:23 AM CDT CBC W/PLT COUNT & AUTO Routine 02/16/2020 DIFFERENTIAL 5:34 AM CDT LIPID PANEL Routine 02/16/2020 5:34 AM CDT HEMOGLOBIN A1C Routine 02/16/2020 5:34 AM CDT VITAMIN B12 Routine 02/16/2020 5:34 AM CDT RPR Routine 02/16/2020 5:34 AM CDT TSH/FREE T4 IF INDICATED Routine 02/16/2020 5:34 AM CDT BASIC METABOLIC PANEL (7) Routine 02/16/2020 5:34 AM CDT CBC W/PLT COUNT & AUTO Routine 02/16/2020 DIFFERENTIAL 5:[address] BRAIN WITHOUT IV Routine 02/16/2020 CONTRAST 4:54 AM CDT 2D ECHO W/ DOPPLER Routine 02/16/2020 (CW/PW/COLOR) 4:04 AM CDT POCT-GLUCOSE METER Routine 02/16/2020 12:01 AM CDT TROPONIN I Routine 02/15/2020 7:10 PM CDT CBC W/PLT COUNT & AUTO Routine 02/15/2020 DIFFERENTIAL 7:09 PM CDT CBC W/PLT COUNT & AUTO Routine 02/15/2020 DIFFERENTIAL 7:09 PM CDT XR CHEST 1 VIEW Routine 02/15/2020 PORTABLE/BEDSIDE 6:53 PM CDT POCT-GLUCOSE METER Routine 02/15/2020 3:01 PM CDT NV CEREBRAL 4 VESSEL STAT 02/15/2020 ANGIOGRAM 1:37 PM CDT SARS-COV2/RT-PCR ([facility] & STAT 02/15/2020 REF LABS) 11:54 AM CDT XR CHEST 2 VIEWS STAT 02/15/2020 11:33 AM CDT CRITICAL CARE Routine 02/15/2020 11:30 AM CDT PROCEDURE DONE OUTSIDE OR 02/15/2020 Cerebrovasc ular accident 11:30 AM CDT (CVA), unspecified mechanism (HCC) ECG 12-LEAD Routine 02/15/2020 11:28 AM CDT Procedure Note - Interface, External Ris In - 02/15/2020 8:02 PM CDT Ventricula r Rate 92 BPM Atrial Rate 84 BPM QRS Duration 78 ms Q-T Interval 376 ms QTC Calculatio n(Bazett) 464 ms R Robbins 2 degrees T Robbins 50 degrees Poor data quality, interpreta tion may be adversely affected Atrial fibrillati on Low voltage QRS Abnormal ECG When compared with ECG of 2 10:44, Atrial fibrillati on has replaced Sinus rhythm Non-specif ic change in ST segment in Inferior leads Nonspecifi c T wave abnormalit y, worse in Inferior leads ECG 12-LEAD STAT 02/15/2020 11:28 AM CDT CBC W/PLT COUNT & AUTO STAT 02/15/2020 DIFFERENTIAL 11:25 AM CDT COMPREHENSIVE METABOLIC STAT 02/15/2020 PANEL 11:25 AM CDT TROPONIN I STAT 02/15/2020 11:25 AM CDT PT/APTT STAT 02/15/2020 11:25 AM CDT CBC W/PLT COUNT & AUTO STAT 02/15/2020 DIFFERENTIAL 11:[address]/CTA CAROTID STAT 02/15/2020 11:22 AM CDT CTA BRAIN STAT 02/15/2020 11:[address] BRAIN/STROKE TEST STAT 02/15/2020 DESIGN 10:45 AM CDT after 05/26/2019 Results * RHYTHM STRIP - SCAN (02/28/2020 1:31 PM CDT) Narrative Performed At This result has an attachment that is n ot available. * UROLOGY REPORT - SCAN (02/28/2020 1:31 PM CDT) Narrative Performed At This result has an attachment that is n ot available. * EKG-SCANNED (02/28/2020 1:31 PM CDT) Only the most recent of 2 results within the time period is included. Narrative Performed At This result has an attachment that is n ot available. * POC-Glucose meter (02/27/2020 5:10 PM CDT) Only the most recent of 52 results within the time period is included. POC-Glucose 176 (H)Comment: : TESTED AT 70 - 110 mg/dL [facility] [address] [facility] [address]: Bi Data Architect/Podiatric Technician ID [facility] = [id number] for BROWN, LUIS Specimen Blood Performing Organization Address City/State/Zipcode Ph one Number [facility] [address] [facility] [facility] * CBC with platelet count + automated diff (02/27/2020 4:42 AM CDT) Only the most recent of 14 results within the time period is included. WBC 8.4 3.5 - 10.5 K/L [facility] RBC 4.64 4.63 - 6.08 M/L [facility] Hemoglobin 11.5 (L) 13.7 - 17.5 GM/DL [facility] Hematocrit 37.7 (L) 40.1 - 51.0 % [facility] MCV 81.3 79.0 - 92.2 fL [facility] MCH 24.8 (L) 25.7 - 32.2 pg [facility] MCHC 30.5 (L) 32.3 - 36.5 GM/DL [facility] RDW 16.8 (H) 11.6 - 14.4 % [facility] Platelets 282 150 - 450 K/CU MM [facility] MPV 9.4 9.4 - 12.4 fL [facility] nRBC 0 0 - 0 /100 WBC [facility] % Neutros 75 % [facility] % Lymphs 11 % [facility] % Monos 12 % [facility] % Eos 2 % [facility] % Baso 0 % [facility] # Neutros 6.28 (H) 1.78 - 5.38 K/L [facility] # Lymphs 0.88 (L) 1.32 - 3.57 K/L [facility] # Monos 1.01 (H) 0.30 - 0.82 K/L [facility] # Eos 0.13 0.04 - 0.54 K/L [facility] # Baso 0.03 0.01 - 0.08 K/L [facility] Immature 1 0 - 1 % [facility] Specimen Blood Performing Organization Address City/[facility] Ph one Number [place] [phone] [place] [address] * Sirolimus level (02/27/2020 4:42 AM CDT) Only the most recent of 7 results within the time period is included. Sirolimus 3.8 (L) 5.0 - 15.0 ng/mL [facility] Specimen Blood Narrative Performed At Bi Data Architect ID [facility] Performing Organization Address [facility] [place] one Number [place] [phone] [place] [address] * Cyclosporine level (02/27/2020 4:42 AM CDT) Only the most recent of 6 results within the time period is included. Cyclosporine <30 <400 ng/mL [facility] Specimen Blood Narrative Performed At Bi Data Architect ID - [email or web address] Performing Organization Address City/[facility] [place] Ph one Number [place] [phone] [address] [phone] [place] [address] * Basic Metabolic Panel (02/27/2020 4:42 AM CDT) Only the most recent of 13 results within the time period is included. Sodium 137 136 - 145 meq/L [facility] Potassium 3.3 (L) 3.5 - 5.1 meq/L [facility] Chloride 100 98 - 107 meq/L [facility] CO2 28 22 - 29 meq/L [facility] BUN 24 (H) 7 - 21 mg/dL [facility] Creatinine 0.91 0.57 - 1.25 mg/dL [facility] Glucose 177 (H) 70 - 105 mg/dL [facility] Calcium 9.1 8.4 - 10.2 mg/dL [facility] EGFR 80Comment: ESTIMATED GFR IS mL/min/1.73 sq m [facility] NOT ACCURATE CREATININE [facility] CLEARANCE IN PREDICTING [facility] GLOMERULAR FILTRATION RATE. ESTIMATED GFR IS NOT APPLICABLE FOR DIALYSIS PATIENTS. Specimen Blood Narrative Performed At Bi Data Architect ID - PIAYA L [facility] Performing Organization Address City/State/Zipcode Ph one Number [facility] [address] [place] [address] [address] [facility] * SARS-CoV2/RT-PCR (Asymptomatic ONLY) (02/22/2020 4:57 PM CDT) Only the most recent of 2 results within the time period is included. SARS-COV2/RT-PC Negative Not Detected, [facility] R Negative, See [facility] external report for [facility] linked test SARS-COV-2 [facility] HECTOR [facility] PERFORMING LAB [facility] Specimen Other - Nasopharyngeal wall structure (body structure) Narrative Performed At Negative result for this test determine s that SARS-CoV-2 RNA was not present in [facility] the specimen above the Limit of Detecti on (LOD). However, Negative results do [facility] not preclude SARS-CoV-2 infection and s hould not be used as the sole basis for treatment or patient management decisio ns. Negative results must be combined with clinical observations, patient his tory, and epidemiological information. A false negative result may occur if a sp ecimen is improperly collected, transported or handled. A false negat nestor result should be considered if patient's recent exposures or clinical presentation indicate that COVID-19 (SARS-CoV-2) is likely and diagnostic t ests for other causes of illness are negative. Re-testing should be consid ered in cases of suspected false negatives. The limit of detection for this assay i s 800 copies/mL. This SARS CoV-2 test is a real-time RT- PCR test intended for the qualitative detection of nucleic acid from SARS-CoV -2 in a nasopharyngeal swab specimen collected from individuals suspected of COVID-19 by their healthcare provider. This test has not been Food and Drug Ad ministration (FDA) cleared or approved. This is a modified version of an appr jaylan Emergency Use Authorization (EUA) and is in the process of review by the FDA. Once authorized by the FDA, the issued EUA will be effective until the declaration that circumstances exist justifying the authorization of the christine rgency use of in vitro diagnostic tests for detection and/or diagnosis of COVID -19 is terminated under Section 564(b)(2) of the Act or the EUA is revoked under Section 564(g) of the Act. Fact Sheet for Healthcare Providers: https://www.[employer]/sites/default/files/product/documents/Fact_Sheet_HC_Provi vrnc_Uhdv_KFJD-WmL-4.pdf Fact Sheet for Healthcare Patients: https://www.[employer]/sites/default/files/product/documents/Fact_Sheet_Patients _Jjun_PEUP-FkA-8.pdf Performing Laboratory: [place] [address] Performing Organization Address City/State/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 Clinical History PAD ESRD Hypertension Stroke Hyperlipidemia Height: 66 inches Weight: 74.39 kg (164 lbs) BSA: 1.84 m^2 BMI: 26.47 kg/m^2 HR: 91 bpm BP: 166/89 mmHg Summary A trivial to small posterior, behind ri ght atrium pericardial effusion is present . Signature Findings Technical Quality: Technically adequate exam. Pericardium A trivial to small firer tunnel kiln ior, behind right atrium pericardial effusion is present . 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 Clinical History PAD ESRD Hypertension Stroke Hyperlipidemia Height: 66 inches Weight: 74.39 kg (164 lbs) BSA: 1.84 m^2 BMI: 26.47 kg/m^2 HR: 91 bpm BP: 166/89 mmHg Summary A trivial to small posterior, behind right atrium pericardial effusion is present . Signature Findings Technical Quality: Technically adequate exam. Pericardium A trivial to small posterior, behind right atrium pericardial effusion is present . Performing Organization Address City/State/Zipcode Ph one Number [facility] ECHO [facility] * CT chest without IV contrast (02/21/2020 5:42 AM CDT) Specimen Narrative Performed At FINAL REPORT [employer] [facility] CT Chest without contrast History: Dyspnea Comparison: none Technique: serial axial imaging was per formed without intravenous contrast as per departmental protocol. Multiplanar images are reconstructed and reviewed when indicat ed. This CT examination is performed using one or more of the following dose reduction techniques: Automated exposure control, adjustment of the mA and /or kV according to patient size, and/or use of iterativ e reconstruction technique. Findings: Calcified mediastinal and bilateral hil ar lymph nodes are consistent with previous granulomatous disease. No definite hilar enlargement. The heart is normal in size. There is a moderate pericardial effusion. No thoracic aortic aneurysm. Moderate u nderlying atherosclerotic disease. Normal caliber of main pulmona ry trunk. Patent central airways. Moderate-size d bilateral pleural effusions. No pneumothorax is appreciated. Bilat eral lower lobe compressive atelectasis is noted. Mild bilateral up per lobe and right middle lobe groundglass densities are also seen. No significant findings in the partiall y imaged abdomen. No aggressive osseous lesion. Impression: 1. Moderate bilateral pleural and peric ardial effusions. 2. Mild bilateral upper lobe and right middle lobe groundglass densities could represent superimposed pulmonary edema or infection. Signed: Meet Figueredo MD Report Verified Date/Time: 02/21/2020 08:56:30 Reading Location: [facility] Diagnostic Imagi ng Reading Room - [place] [address] Procedure Note Interface, External Ris In - 02/21/2020 8:58 AM CDT FINAL REPORT CT Chest without contrast History: Dyspnea Comparison: none Technique: serial axial imaging was performed without intravenous contrast as per departmental protocol. Multiplanar images are reconstructed and reviewed when indicated. This CT examination is performed using one or more of the following dose reduction techniques: Automated exposure control, adjustment of the mA and /or kV according to patient size, and/or use of iterative reconstruction technique. Findings: Calcified mediastinal and bilateral hilar lymph nodes are consistent with previous granulomatous disease. No definite hilar enlargement. The heart is normal in size. There is a moderate pericardial effusion. No thoracic aortic aneurysm. Moderate underlying atherosclerotic disease. Normal caliber of main pulmonary trunk. Patent central airways. Moderate-sized bilateral pleural effusions. No pneumothorax is appreciated. Bilateral lower lobe compressive atelectasis is noted. Mild bilateral upper lobe and right middle lobe groundglass densities are also seen. No significant findings in the partially imaged abdomen. No aggressive osseous lesion. Impression: 1. Moderate bilateral pleural and perica rdial effusions. 2. Mild bilateral upper lobe and right m iddle lobe groundglass densities could represent superimposed pulmonary edema or infection. Signed: Meet Figueredo MD Report Verified Date/Time: 02/21/2020 08:56:30 Reading Location: [facility] Diagnostic Imaging Reading Room - [place] [address] Performing Organization Address City/State/Zipcode Ph one Number [employer] RIS * MR brain without IV contrast (02/19/2020 4:18 PM CDT) Specimen Narrative Performed At FINAL REPORT [employer] MR, BRAIN, WITHOUT CONTRAST INDICATION: Stroke, follow up TECHNIQUE: Multiplanar, multisequence M R imaging of the brain without intravenous contrast. COMPARISON: CT head 02/16/2020 FINDINGS: Intracranial: Restricted diffusion and FLAIR hyperintensity within the left MCA distribution involving the temporal lobe, insula, and left basal ganglia, consistent with qasim lving infarct. There is another small focus of restricted diffu jose alberto and FLAIR hyperintensity within the right parieto-occipital junc tion consistent with acute border zone infarct. No acute intracranial hemorrhage. No ma ss effect. No hydrocephalus. Visualized intracranial flow voids are of normal course and caliber. Sinuses: No evidence of sinusitis. Mast oids are clear. Orbits: Globes are intact. Calvarium \T\ scalp: Unremarkable. IMPRESSION: 1.Evolving left MCA territory infarct w ithout hemorrhagic transformation. 2.Additional small right posterior bord er zone infarct. Signed: Carole Carbajal MD Report Verified Date/Time: 02/19/2020 16:33:42 Procedure Note Interface, External Ris In - 02/19/2020 4:35 PM CDT FINAL REPORT MR, BRAIN, WITHOUT CONTRAST INDICATION: Stroke, follow up TECHNIQUE: Multiplanar, multisequence MR imaging of the brain without intravenous contrast. COMPARISON: CT head 02/16/2020 FINDINGS: Intracranial: Restricted diffusion and FLAIR hyperintensity within the left MCA distribution involving the temporal lobe, insula, and left basal ganglia, consistent with evolving infarct. There is another small focus of restricted diffusion and FLAIR hyperintensity within the right parieto-occipital junction consistent with acute border zone infarct. No acute intracranial hemorrhage. No mass effect. No hydrocephalus. Visualized intracranial flow voids are of normal course and caliber. Sinuses: No evidence of sinusitis. Mastoids are clear. Orbits: Globes are intact. Calvarium \T\ scalp: Unremarkable. IMPRESSION: 1.Evolving left MCA territory infarct wi thout hemorrhagic transformation. 2.Additional small right posterior borde r zone infarct. Signed: Carole Carbajal MD Report Verified Date/Time: 02/19/2020 16:33:42 Performing Organization Address City/State/Zipcode Ph one Number GE RIS * C-Reactive Protein (02/19/2020 4:34 AM CDT) CRP 13.24 (H) 0.00 - 0.50 mg/dL [facility] Specimen Blood Narrative Performed At [employer] ID - KIM [facility] Performing Organization Address [facility] one Number [address] [facility] * Anti-Nuclear Antibody (JACKIE) (02/19/2020 4:34 AM CDT) JACKIE Negative Negative [facility] Specimen Blood Narrative Performed At Test performed by IFA method. [facility] Test performed by IFA method. [facility] Performing Organization Address [facility] one Number [place] [address] [phone] [place] [address] * Blood gas, arterial (02/17/2020 7:23 AM CDT) pH, Arterial 7.45 7.35 - 7.45 [facility] pCO2, Arterial 29 (L) 35 - 45 mmHg [facility] pO2, Arterial 92 (H) 80 - 90 mmHg [facility] O2 Sat, 97.4 (H) 96.0 - 97.0 % [facility] HCO3, Arterial 19 (L) 21 - 29 mmol/L [facility] Base Excess, -3.9 (L) -2.0 - 3.0 mmol/L [facility] Patient 37.0 C [facility] FIO2 40.0 % [facility] Specimen Blood, Arterial Performing Organization Address [facility] one Number [place] [address] [facility] * Ketone, blood (02/17/2020 6:45 AM CDT) Ketones, Blood 1.7 (H) <0.4 mmol/L [facility] Specimen Blood Performing Organization Address City/[facility] Ph one Number [facility] [address] [place], [place] [address] MEDICAL CENTER * XR chest 1 view portable / bedside (02/17/2020 6:29 AM CDT) Only the most recent of 2 results within the time period is included. Specimen Narrative Performed At FINAL REPORT [facility] CLINICAL INDICATION: Hypoxia, wheezing Comparison: 02/15/2020 at 1853 hours The cardiomediastinal contours are stab le. Central pulmonary vascular congestion a nd left greater than right parenchymal and pleural opacities are u nchanged. There is no pneumothorax. A right IJ CVC remains in place. IMPRESSION: No significant interval change. Signed: Tirso Ricketts MD Report Verified Date/Time: 02/17/2020 06:48:55 Procedure Note Interface, External Ris In - 02/17/2020 6:51 AM CDT FINAL REPORT CLINICAL INDICATION: Hypoxia, wheezing Comparison: 02/15/2020 at 1853 hours The cardiomediastinal contours are stable. Central pulmonary vascular congestion and left greater than right parenchymal and pleural opacities are unchanged. There is no pneumothorax. A right IJ CVC remains in place. IMPRESSION: No significant interval change. Signed: Tirso Ricketts MD Report Verified Date/Time: 02/17/2020 06:48:55 Performing Organization Address City/[facility] Ph one Number GE [facility] * Urinalysis w/Microscopic + Reflex to Culture (02/16/2020 9:08 AM CDT) Color, UA Yellow [facility] Clarity, UA Cloudy [facility] Specific 1.023 1.001 - 1.035 [facility] pH, UA 6.0 5.0 - 8.0 [facility] Protein, UA 300 mg/dL (A) Negative [facility] Glucose, UA 500 mg/dL (A) Negative [facility] Ketones, UA 60 mg/dL (A) Negative [facility] Bilirubin, UA Negative Negative [facility] Blood, UA Moderate (A) Negative [facility] Nitrite, UA Negative Negative [facility] Leukocytes, UA Large (A) Negative [facility] Urobilinogen, 0.2 0.2 - 1.0 mg/dL [facility] RBC, UA 17 /HPF [facility] WBC, UA 2,099 /HPF [facility] Bacteria, UA Moderate [facility] Specimen Source [facility] Specimen Urine Narrative Performed At [employer] OPAL - arnav [facility] Performing Organization Address [facility] [place] one [facility] [address] [place] [address] MEDICAL CENTER * Urine culture (02/16/2020 9:08 AM CDT) Result >100,000 col/mL Klebsiella [facility] pneumoniae (A)Comment: ESBL [facility] Specimen Urine Antibiotic Method Susceptibility Organism Amikacin <=2: Susceptible Klebsiella pneumoniae Ampicillin + Sulbactam >=32: Resistant Klebsiella pneumoniae Aztreonam 16: Resistant Klebsiella pneumoniae Cefepime Resistant Klebsiella pneumoniae Cefoxitin Resistant Klebsiella pneumoniae Ceftazidime Resistant Klebsiella pneumoniae Ceftriaxone >=64: Resistant Klebsiella pneumoniae Ertapenem <=0.5: Susceptible Klebsiella pneumoniae Gentamicin >=16: Resistant Klebsiella pneumoniae Levofloxacin 1: Resistant Klebsiella pneumoniae Meropenem <=0.25: Susceptible Klebsiella pneumoniae Nitrofurantoin 64: Intermediate Klebsiella pneumoniae Piperacillin + Tazobactam Resistant Klebsiella pneumoniae Tetracycline >=16: Resistant Klebsiella pneumoniae Tobramycin 8: Intermediate Klebsiella pneumoniae Trimethoprim + Sulfamethoxazole >=320: Resistant Klebsiella pneumoniae Performing Organization Address City/[facility] Ph one Number [address] [facility] * TSH/Free T4 If Indicated (02/16/2020 5:34 AM CDT) TSH 1.103 0.350 - 4.940 uIU/mL [facility] Specimen Blood Narrative Performed At [employer] Architect ID - ADELAIDA Heredia [facility] Performing Organization Address City/State/Zipcode Ph one Number [address] [facility] * RPR (02/16/2020 5:34 AM CDT) RPR Nonreactive Nonreactive [facility] Specimen Blood Performing Organization Address City/State/Zipcode Ph one Number [address] [facility] * Hemoglobin A1c (02/16/2020 5:34 AM CDT) Hemoglobin A1C 7.8 (H) 4.3 - 6.1 % [facility] Specimen Blood Performing Organization Address City/[facility] Ph one Number [address] [facility] * Vitamin B12 (02/16/2020 5:34 AM CDT) Vitamin B12 548 213 - 816 pg/mL [facility] Specimen Blood Narrative Performed At [employer] ID - ADELAIDA Heredia [facility] Performing Organization Address City/State/Zipcode Ph one Number [address] [facility] * Fasting lipid panel (02/16/2020 5:34 AM CDT) Triglycerides 124 mg/dL [facility] Cholesterol 121 mg/dL [facility] HDL 38 mg/dL [facility] LDL Calculated 58 mg/dL [facility] Specimen Blood Narrative Performed At Triglyceride Reference Range: [facility] Low Risk <150 [facility] Borderline 150-199 High Risk 200-499 Very High Risk >=500 Cholesterol Reference Range: Low Risk <200 Borderline 200-239 High Risk >240 HDL Cholesterol Reference Range: Low Risk >=60 High Risk <40 LDL Cholesterol Reference Range: Optimal <100 Near Optimal 100-129 Borderline 130-159 High 160-189 Very High >=190 [employer] Architect ID - ADELAIDA Heredia Performing Organization Address City/State/Zipcode Ph one Number [facility] [address] [place], [place] [address] [facility] * CT brain without IV contrast (02/16/2020 4:54 AM CDT) Specimen Narrative Performed At FINAL REPORT [employer] RIS CT Head without contrast CLINICAL HISTORY: stroke TECHNIQUE: Contiguous axial CT images t hrough the head without contrast. This exam was performed accor ding to the departmental dose optimization program which includes aut omated exposure control, adjustment of the mA and/or kV accordin g to the patient size, and/or use of an iterative reconstruction tech nique. COMPARISON: 02/15/2020 FINDINGS: There is expected evolution of the acut e left middle cerebral artery distribution infarct. There is no evide nce of hemorrhagic transformation. There is local sulcal e ffacement without midline shift. Generalized parenchymal volume l oss is again seen without hydrocephalus. There are no extra-axial fluid collections. There is atherosclerotic calcification of the in tracranial circulation. The visualized paranasal sinuses are well-a erated. IMPRESSION: Since 02/15/2020, evolving left middle ce rebral artery distribution infarct without hemorrhage. Signed: Zain Temple MD Report Verified Date/Time: 02/16/2020 07:58:33 Reading Location: [address] Neuro Re ading Room Procedure Note Interface, External Ris In - 02/16/2020 8:00 AM CDT FINAL REPORT CT Head without contrast CLINICAL HISTORY: stroke TECHNIQUE: Contiguous axial CT images through the head without contrast. This exam was performed according to the departmental dose optimization program which includes automated exposure control, adjustment of the mA and/or kV according to the patient size, and/or use of an iterative reconstruction technique. COMPARISON: 02/15/2020 FINDINGS: There is expected evolution of the acute left middle cerebral artery distribution infarct. There is no evidence of hemorrhagic transformation. There is local sulcal effacement without midline shift. Generalized parenchymal volume loss is again seen without hydrocephalus. There are no extra-axial fluid collections. There is atherosclerotic calcification of the intracranial circulation. The visualized paranasal sinuses are well-aerated. IMPRESSION: Since 02/15/2020, evolving left middle cerebral artery distribution infarct without hemorrhage. Signed: Zain Temple MD Report Verified Date/Time: 02/16/2020 07:58:33 Reading Location: [address] Neuro Reading Room Performing Organization Address City/State/Zipcode Ph one Number [facility] * 2D Echo W/Doppler(CW/PW/Color) (02/16/2020 4:04 AM CDT) Ejection [facility] ECHO Fraction [facility] Specimen Narrative Performed At Transthoracic Echocardiography Report (TTE) [facility] ECH O HEARTLAB Demographics 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 Clinical History HGB 10.0 HCT 32.3 % PAD, ESRD, HTN, STROKE, HLD Contrast Medium: Bubble Study. Height: 66 inches Weight: 74.39 kg (164 lbs) BSA: 1.84 m^2 BMI: 26.47 kg/m^2 HR: 82 bpm BP: 122/82 mmHg Summary 1. Normal LV size. LV function is hyper dynamic. LVEF is > 70% 2. Diastology: Indeterminate 3. Normal RV size and function 4. No significant valvular heart diseas e 5. Trace TR. Unable to estimate PASP 6. Moderate pericardial effusion. No si gns of hemodynamic compromise 7. No evidence of right to left shuntin g after the injection of agitated saline Previous Study No prior exam available for comparison. Signature Findings Rhythm/BP Irregular rhythm during the exam. Left Ventricle The left owen tricle is chamber size (by PSLAX dime nsion) is normal (female - LVIDd 3.8-5.2cm) . Mild septal hypertrophy is present. All of the LV segments are hyperkinetic . Glob al LV systolic function hyperdynamic . LVEF by Gil's method of disk assessment is incr eased (>70%) . The LVEF was measured using Gil's bi-plane meth od of disk . Degr ee of diastolic dysfunction (LAP assessment) is inco nclusive due to arrhythmia . Left Atrium LA size is mildly enlarged (35-41 ml/m2) . Right Ventricle The right ve ntricular chamber size and systolic func tion are within normal limits. Right Atrium RA cavity s ize is normal . Atrial Septum IV saline c ontrast injection was negative for a PFO (pat ent foramen ovale) at rest and post Valsalva . Aortic Valve Mild AoV cu sp thickening. Mitral Valve Mild MV natanael flet thickening. Tricuspid Valve A trace of t ricuspid regurgitation. Unab le to estimate peak systolic PA pressure; inad equate TR velocity signal. Pulmonic Valve PV is not we ll visualized; function appears normal by D oppler visualized. Aorta Aortic root size (SInus of Valsalva diameter) is norm al . Pericardium A moderate pericardial effusion is present . An e cho lucent space is noted consistent with prom inent pericardial fat pad. Oumou cardial tamponade physiology is not evident base d on available data . IVC/SVC/PA/PV/Pleural The estimated R A pressure by IVC dynamics 11-15mmHg . Chambers/Structures Left Atrium LA Volume: 74.75 ml LA Area: 24.29 cm^2 LA Vol. Index: 41 ml/m^2 Left Ventricle LVIDd: 3.87 cm LVEDV:85.92 ml LV Septum Diastolic: 1.24 cm LV PW Diastolic: 1.1 cm LVEDV Gil's:57.28 ml LVESV Gil's:13.91 ml LVEF Gil's: 75.7 % LVEDVI: 31 ml/m^2 LVESVI: 8 ml/m^2 LVOT Diameter: 1.96 cm Aorta Ao Root S of Alva.: 2.99 cm Doppler/Quantitative Measurements Aortic Valve Peak Velocity: 1.65 m/s Mean Velocity: 1.09 m/s Peak Gradient: 10.85 mmHg Mean Gradient: 5.5 mmHg AV Area (continuity): 2.57 cm^2 AV VTI: 31.82 cm AV DVI: 0.85 LVOT Peak Velocity: 1.29 m/s Peak Gradient: 6.71 mmHg Mean Velocity: 0.89 m/s Mean Gradient: 3.62 mmHg LVOT Diameter: 1.96 cm LVOT VTI: 27.07 cm LVOT Area: 3.02 cm^2 LVOT SV:81.63 ml LVOT CO: 6.69 l/min LVOT CI: 3.64 l/min/m^2 Procedure Note Interface, External Ris In - 02/16/2020 6:22 PM CDT Transthoracic Echocardiography Report (TTE) Demographics Patient Name LISA SEPULVEDA Date of Study 02/16/2020 CRYSTAL Gender Male Visit Number [id number] Race Unknown Room Number 7520 Number Date of 1940 Referring Alexx Hawkins 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 Clinical History HGB 10.0 HCT 32.3 % PAD, ESRD, HTN, STROKE, HLD Contrast Medium: Bubble Study. Height: 66 inches Weight: 74.39 kg (164 lbs) BSA: 1.84 m^2 BMI: 26.47 kg/m^2 HR: 82 bpm BP: 122/82 mmHg Summary 1. Normal LV size. LV function is hyperdynamic. LVEF is > 70% 2. Diastology: Indeterminate 3. Normal RV size and function 4. No significant valvular heart disease 5. Trace TR. Unable to estimate PASP 6. Moderate pericardial effusion. No signs of hemodynamic compromise 7. No evidence of right to left shunting after the injection of agitated saline Previous Study No prior exam available for comparison. Signature Findings Rhythm/BP Irregular rhythm during the exam. Left Ventricle The left ventricle is chamber size (by PSLAX dimension) is normal (female - LVIDd 3.8-5.2cm) . Mild septal hypertrophy is present. All of the LV segments are hyperkinetic . Global LV systolic function hyperdynamic . LVEF by Gil's method of disk assessment is increased (>70%) . The LVEF was measured using Gil's bi-plane method of disk . Degree of diastolic dysfunction (LAP assessment) is inconclusive due to arrhythmia . Left Atrium LA size is mildly enlarged (35-41 ml/m2) . Right Ventricle The right ventricular chamber size and systolic function are within normal limits. Right Atrium RA cavity size is normal . Atrial Septum IV saline contrast injection was negative for a PFO (patent foramen ovale) at rest and post Valsalva . Aortic Valve Mild AoV cusp thickening. Mitral Valve Mild MV leaflet thickening. Tricuspid Valve A trace of tricuspid regurgitation. Unable to estimate peak systolic PA pressure; inadequate TR velocity signal. Pulmonic Valve PV is not well visualized; function appears normal by Doppler visualized. Aorta Aortic root size (SInus of Valsalva diameter) is normal . Pericardium A moderate pericardial effusion is present . An echo lucent space is noted consistent with prominent pericardial fat pad. Pericardial tamponade physiology is not evident based on available data . IVC/SVC/PA/PV/Pleural The estimated RA pressure by IVC dynamics 11-15mmHg . Chambers/Structures Left Atrium LA Volume: 74.75 ml LA Area: 24.29 cm^2 LA Vol. Index: 41 ml/m^2 Left Ventricle LVIDd: 3.87 cm LVEDV:85.92 ml LV Septum Diastolic: 1.24 cm LV PW Diastolic: 1.1 cm LVEDV Gil's:57.28 ml LVESV Gil's:13.91 ml LVEF Gil's: 75.7 % LVEDVI: 31 ml/m^2 LVESVI: 8 ml/m^2 LVOT Diameter: 1.96 cm Aorta Ao Root S of Alva.: 2.99 cm Doppler/Quantitative Measurements Aortic Valve Peak Velocity: 1.65 m/s Mean Velocity: 1.09 m/s Peak Gradient: 10.85 mmHg Mean Gradient: 5.5 mmHg AV Area (continuity): 2.57 cm^2 AV VTI: 31.82 cm AV DVI: 0.85 LVOT Peak Velocity: 1.29 m/s Peak Gradient: 6.71 mmHg Mean Velocity: 0.89 m/s Mean Gradient: 3.62 mmHg LVOT Diameter: 1.96 cm LVOT VTI: 27.07 cm LVOT Area: 3.02 cm^2 LVOT SV:81.63 ml LVOT CO: 6.69 l/min LVOT CI: 3.64 l/min/m^2 Performing Organization Address City/State/Zipcode Ph one Number [facility] * Troponin I (02/15/2020 7:10 PM CDT) Only the most recent of 2 results within the time period is included. Troponin I <0.01 0.00 - 0.03 ng/mL [facility] Specimen Blood Narrative Performed At Troponin I (TnI) levels must be interpreted in the co ntext of the presenting [facility] symptoms and the clinical findings. Elevated TnI leve ls indicate myocardial [facility] damage, but are not specific for ischem ic heart disease. Elevated TnI levels are seen in patients with other cardiac con ditions (including myocarditis and congestive heart failure), and slight T nI elevations occur in patients with other conditions, including sepsis, maricel al failure, acidosis, acute neurological disease, and persistent tachyarrhythmia . Bi Data Architect ID - [place] Performing Organization Address City/State/Zipcode Ph one Number [facility] [address] [place] [address] [facility] * NV cerebral 4 vessel angiogram (02/15/2020 1:37 PM CDT) Specimen Narrative Performed At FINAL REPORT [facility] Date of Procedure: February 15, 2020 Surgeon: Anai Mittal MD Theatre Program Director: Delvin Naranjo MD Pre-operative diagnosis: L M1 Occlusion Post-operative diagnosis: L M1 Occlusio n Procedure: [facility] Anesthesiologist: per anesthesia record s Anesthesia Type: General Complications: None apparent Indication for procedure: 79 year old male who presented to ER wh en found by his family to be aphasic and not moving right arm. CTA s howed that the patient has a left M1 occlusion. His last known ranjit l was 12 hours ago so is not a candidate for tpa so will be taken joselito gently to IR for thrombectomy Procedure in Detail: Following explanation of the benefits, risks and alternatives for the procedure, informed consent was obtaine d from the patients daughter. The risks including but not limited to stroke, intracranial hemorrhage, vascular injury to the cerv ical or access vessels were discussed. A time-out was performed. Both groins and wrists were prepped in the usual sterile fashion us ing Chloroprep, and sterilely draped. [facility] and a 9 Fr short sheath was placed and maintained on heparinized flush. An Infinity plus guide catheter and a VTK diagnostic catheter was introduced and brought into the aortic arch under fluoroscopic guidance using coaxial technique. The d iagnostic catheter was used to catheterize the left common carotid art sravanthi and sequentially the internal carotid artery under fluorosco pic and roadmap guidance. A run showed a left M1 occlusion. The allen de catheter was brought up to the carotid bifurcation but not crossed at this time due to an atherosclerotic ICA. The diagnostic set up was removed and an aspiration system of a Vecta 74 aspirat ion catheter, marksman microcatheter, and Synchro 0.014 microw ady was introduced into the infinity plus. The microwire and microw ady were brought up under roadmap and fluoroscopic guidance to cr oss the M1 occlusion. Once the microwire and catheter were solidly in the M2 the aspiration catheter was advanced into the carotid siphon bu t due to tortuosity was unable to advance to the occluded M1. A Trevo stentreiver (4x20) was introduced through the marksman and acr oss the lesion and was slowly unsheathed under constant fluoroscopy. Aspiration tubing was connected and we brought the stentreive r partially back into the aspiration catheter and under double as piration on infinity and vecta removed trevo and vecta. A large clot w as seen in the aspiration catheter and stentreiver. A follow up r un demonstrated TICI 3 reperfusion. At this point all sheaths and catheters were removed. Femoral arteriotomy was closed with a 8 Y[place] Angio-Seal. Patient was transported to the neuro ICU in sta ble condition. Findings: Left Common Carotid Artery (AP, Lateral ,) -The origins of the left internal and e xternal carotid arteries are widely patent without evidence of ulcer ation or stenosis. The visualized branches of the external car otid artery are normal in appearance and course. The venous and c apillary phases are normal Left Internal Carotid Artery (AP, Later al) -The cervical carotid artery is patent without areas of stenosis, dissection or ulceration; and is withou t branches -The petrous carotid artery is patent w ithout areas of stenosis, dissection or ulceration the mandibulov idian artery is not visualized, no petrosal segment aneurys ms -The cavernous carotid artery is patent without areas of stenosis, dissection, or ulceration, meningohypop hyseal trunk and inferolateral trunks are not visualized, there are no cavernous segment aneurysms -The supraclinoidal carotid artery, t he opthalmic, communicating, and choroidal segments are patent witho ut areas of stenosis and without aneurysms. The posterior commun icating artery is small sized, the anterior choridal artery is visuali zed. The A1 is visualized and is without stenosis or vasospasm. The M 1 is occluded soon after the carotid terminus and there is no fillin g of the distal MCA territory prior to intervention. Following Trevum bra technique mechanical thrombectomy there is TICI 3 reperfusio n and the entire territory robustly fills. -The FORREST fill physiologically throughou t their territory with a small amount of cross-filling across the ante rior communicating artery. There is no noted stenosis or vasospasm noted within its branches. There are no noted aneurysms of the per icallosal or supramarginal branches. There is no evidence of arter iovenous shunting The capillary phase is normal without a reas of malperfusion, the venous phase demonstrates a normal veno us draining pattern Summary of Findings 1. 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 No other vascular malformations note d in the studied vessels 3. No evidence of clinical or radiograp hic complication Signed: Anai Mittal MD Report Verified Date/Time: 02/17/2020 01:36:13 [facility] Procedure Note Interface, External Ris In - 02/17/2020 1:38 AM CDT FINAL REPORT Date of Procedure: February 15, 2020 Surgeon: Anai Mittal MD Theatre Program Director: Delvin Naranjo MD Pre-operative diagnosis: L M1 Occlusion Post-operative diagnosis: L M1 Occlusion Procedure: Diagnostic Angiogram and mechanical thrombectomy Anesthesiologist: per anesthesia records Anesthesia Type: General Complications: None apparent Indication for procedure: 79 year old male who presented to ER whe n found by his family to be aphasic and not moving right arm. CTA showed that the patient has a left M1 occlusion. His last known normal was 12 hours ago so is not a candidate for tpa so will be taken emergently to IR for thrombectomy Procedure in Detail: Following explanation of the benefits, risks and alternatives for the procedure, informed consent was obtained from the patients daughter. The risks including but not limited to stroke, intracranial hemorrhage, vascular injury to the cervical or access vessels were discussed. A time-out was performed. Both groins and wrists were prepped in the usual sterile fashion using Chloroprep, and sterilely draped. Access was initiated at the right femoral artery and a 9 Fr short sheath was placed and maintained on heparinized flush. An Infinity plus guide catheter and a VTK diagnostic catheter was introduced and brought into the aortic arch under fluoroscopic guidance using coaxial technique. The diagnostic catheter was used to catheterize the left common carotid artery and sequentially the internal carotid artery under fluoroscopic and roadmap guidance. A run showed a left M1 occlusion. The guide catheter was brought up to the carotid bifurcation but not crossed at this time due to an atherosclerotic ICA. The diagnostic set up was removed and an aspiration system of a Vecta 74 aspiration catheter, marksman microcatheter, and Synchro 0.014 microwire was introduced into the infinity plus. The microwire and microwire were brought up under roadmap and fluoroscopic guidance to cross the M1 occlusion. Once the microwire and catheter were solidly in the M2 the aspiration catheter was advanced into the carotid siphon but due to tortuosity was unable to advance to the occluded M1. A Trevo stentreiver (4x20) was introduced through the marksman and across the lesion and was slowly unsheathed under constant fluoroscopy. Aspiration tubing was connected and we brought the stentreiver partially back into the aspiration catheter and under double aspiration on infinity and vecta removed trevo and vecta. A large clot was seen in the aspiration catheter and stentreiver. A follow up run demonstrated TICI 3 reperfusion. At this point all sheaths and catheters were removed. Femoral arteriotomy was closed with a 8 Y[place]ut Angio-Seal. Patient was transported to the neuro ICU in stable condition. Findings: Left Common Carotid Artery (AP, Lateral,) -The origins of the left internal and ex ternal carotid arteries are widely patent without evidence of ulceration or stenosis. The visualized branches of the external carotid artery are normal in appearance and course. The venous and capillary phases are normal Left Internal Carotid Artery (AP, Lateral) -The cervical carotid artery is patent w ithout areas of stenosis, dissection or ulceration; and is without branches -The petrous carotid artery is patent wi thout areas of stenosis, dissection or ulceration the mandibulovidian artery is not visualized, no petrosal segment aneurysms -The cavernous carotid artery is patent without areas of stenosis, dissection, or ulceration, meningohypophyseal trunk and inferolateral trunks are not visualized, there are no cavernous segment aneurysms -The supraclinoidal carotid artery, the opthalmic, communicating, and choroidal segments are patent without areas of stenosis and without aneurysms. The posterior communicating artery is small sized, the anterior choridal artery is visualized. The A1 is visualized and is without stenosis or vasospasm. The M1 is occluded soon after the carotid terminus and there is no filling of the distal MCA territory prior to intervention. Following Trevumbra technique mechanical thrombectomy there is TICI 3 reperfusion and the entire territory robustly fills. -The FORREST fill physiologically throughout their territory with a small amount of cross-filling across the anterior communicating artery. There is no noted stenosis or vasospasm noted within its branches. There are no noted aneurysms of the pericallosal or supramarginal branches. There is no evidence of arteriovenous shunting The capillary phase is normal without areas of malperfusion, the venous phase demonstrates a normal venous draining pattern Summary of Findings 1. L M1 occlusion that was reperfused (T ICI 3) following Trevumbra technique for mechanical thrombectomy 2. No other vascular malformations noted in the studied vessels 3. No evidence of clinical or radiograph ic complication Signed: Anai Mittal MD Report Verified Date/Time: 02/17/2020 01:36:13 Reading Location: [facility] Y[facility] Neuro Angio Reading Room Performing Organization Address City/State/Zipcode Ph one Number GE RIS * XR chest 2 views (02/15/2020 11:33 AM CDT) Specimen Narrative Performed At FINAL REPORT GE RIS INDICATION: cva COMPARISON: November 2006 eight TECHNIQUE: Frontal and lateral views of the chest. IMPRESSION: There is diffuse interstitial congestio n and left effusion. In the setting of cardiomegaly this is favored to represent cardiogenic edema. No pneumothorax. Signed: JR Ruth Robert MD Report Verified Date/Time: 02/15/2020 12:05:24 Reading Location: [facility] Reading Room Procedure Note Interface, External Ris In - 02/15/2020 12:07 PM CDT FINAL REPORT INDICATION: cva COMPARISON: November 2006 eight TECHNIQUE: Frontal and lateral views of the chest. IMPRESSION: There is diffuse interstitial congestion and left effusion. In the setting of cardiomegaly this is favored to represent cardiogenic edema. No pneumothorax. Signed: JR Ruth Robert MD Report Verified Date/Time: 02/15/2020 12:05:24 Reading Location: [facility] Reading Room Performing Organization Address City/State/Zipcode Ph one Number GE RIS * CRITICAL CARE (02/15/2020 11:30 AM CDT) Narrative Performed At Ross Coffey MD 02/15/2020 9:38 PM Critical Care Performed by: Ross Coffey MD Authorized by: Ross Coffey MD Critical care time was exclusive of sep arately billable procedures and treating other patients and teaching ti wv. Critical care was necessary to treat or prevent imminent or life-threatening deterioration of the f ollowing conditions: [employer]IST failure or compromise. Critical care was time spent personally by me on the following activities: blood draw for specimens, development o f treatment plan with patient or surrogate, discussions with consultants , examination of patient, obtaining history from patient or surrogate, orde ring and performing treatments and interventions, ordering and review of l aboratory studies, ordering and review of radiographic studies, re-eval uation of patient's condition, pulse oximetry and review of old charts . * ECG 12 lead (02/15/2020 11:28 AM CDT) Specimen Narrative Performed At Ventricular Rate 92 BPM GE MUSE Atrial Rate 84 BPM QRS Duration 78 ms Q-T Interval 376 ms QTC Calculation(Bazett) 464 ms R Robbins 2 degrees T Robbins 50 degrees Atrial fibrillation Low voltage QRS Prolonged QT Abnormal ECG When compared with ECG of 08-MAR-2012 1 0:44, Atrial fibrillation has replaced Sinus rhythm QRS amplitude has decreased Non-specific change in ST segment in In ferior leads Nonspecific T wave abnormality, worse i n Inferior leads Confirmed by MD VIRGIE, KIMBERLY ([id number] ) on 02/16/2020 5:07:08 PM Procedure Note Interface, External Ris In - 02/16/2020 5:07 PM CDT Ventricular Rate 92 BPM Atrial Rate 84 BPM QRS Duration 78 ms Q-T Interval 376 ms QTC Calculation(Bazett) 464 ms R Robbins 2 degrees T Robbins 50 degrees Atrial fibrillation Low voltage QRS Prolonged QT Abnormal ECG When compared with ECG of 08-MAR-2012 10:44, Atrial fibrillation has replaced Sinus rhythm QRS amplitude has decreased Non-specific change in ST segment in Inferior leads Nonspecific T wave abnormality, worse in Inferior leads Confirmed by MD VIRGIE, KIMBERLY ([id number]) on 02/16/2020 5:07:08 PM Performing Organization Address [facility] [place] GE MUSE * PT/aPTT (02/15/2020 11:25 AM CDT) Pathologist [facility] Protime 15.4 (H) 11.9 - 14.2 seconds [facility] INR 1.3 <=5.9 [facility] PTT 26.9 22.5 - 36.0 seconds [facility] Specimen Blood Narrative Performed At [facility] 12/06/2018: PT Reference Range Change [facility] New: 11.9-14.2 Previous: 11.7-14.7 [facility] MEDICAL [facility] TER RECOMMENDED COUMADIN/WARFARIN INR THERA PY RANGES STANDARD DOSE: 2.0-3.0 Includes: PROP HYLAXIS for venous thrombosis, systemic embolization; TREATMENT for venous thro mbosis and/or pulmonary embolus. HIGH RISK: Target INR is 2.5-3.5 for pa tients wiht mechanical heart valves. Performing Organization Address [facility] [place] Number [facility] [address], [place] [address] [facility]ENTER * Comprehensive metabolic panel (02/15/2020 11:25 AM CDT) [facility] Protein, Total 6.9 6.0 - 8.3 gm/dL [facility] Albumin 3.5 3.5 - 5.0 g/dL [facility] Alkaline 102 40 - 150 U/L [facility] Total Bilirubin 0.3 0.2 - 1.2 mg/dL [facility] Sodium 137 136 - 145 meq/L [facility] Potassium 4.2 3.5 - 5.1 meq/L [facility] Chloride 107 98 - 107 meq/L [facility] CO2 20 (L) 22 - 29 meq/L [facility] BUN 44 (H) 7 - 21 mg/dL [facility] Creatinine 1.23 0.57 - 1.25 mg/dL [facility] Glucose 122 (H) 70 - 105 mg/dL [facility] Calcium 8.7 8.4 - 10.2 mg/dL [facility] AST 11 5 - 34 U/L [facility] ALT 10 6 - 55 U/L [facility] EGFR Comment: INSUFFICIENT CLINICAL [facility] DATA TO CALCULATE ESTIMATED [facility] GFR. [facility] Specimen Blood Narrative Performed At Bi Data Architect ID - [id number] [facility] Performing Organization Address City/State/[facility] Ph one Number [place] [phone] [facility] * CTA carotid (02/15/2020 11:22 AM CDT) Specimen Narrative Performed At FINAL REPORT [employer] CT, CAROTID, ANGIO, CT, CTANGIO BRAIN BRAIN CT WITHOUT CONTRAST INDICATION: Neuro deficit, acute, strok e suspected COMPARISON: CT head of the same date TECHNIQUE: Rapid acquisition spiral images were ob tained between the aortic arch and the cranial vertex during intraveno us contrast infusion to reconstruct axial images and angiograph ic 3D maximum intensity projections (MIP). 3-D volumetric refor matted images were created at a dedicated workstation. Precontrast im ages of the brain were also obtained. Stenosis evaluation reported in complia nce with NASCET criteria. DOSE REDUCTION: Dose modulation, iterat nestor reconstruction, and/or weight-based adjustment of the mA/kV wa s utilized to reduce the radiation dose to as low as reasonably achievable. FINDINGS: CTA BRAIN: Internal carotid arteries: Petrous, cav ernous and supraclinoid portions patent. Middle cerebral arteries: Lack of contr ast opacification of the distal left M1, suggestive of M1 occlus ion. Right MCA M1-M2 branches demonstrate normal contrast enhancement . Anterior cerebral arteries: Bilateral A CA A1-A2 branches demonstrate normal contrast enhancement. Basilar system: Normal contrast opacifi cation of the vertebrobasilar system. Posterior cerebral arteries: Normal con trast opacification of the bilateral COTTON CLEANER P1-P2 branches. Venous opacification: Major dural sinus es unremarkable for bolus timing. Additional findings: None. CTA NECK: Common carotid arteries: There is ranjit l contrast opacification of the bilateral common carotid arteries. Cervical internal carotid arteries: 50- 60% narrowing of the left proximal ICA secondary to calcific athe rosclerotic plaque. Normal contrast opacification of the right cer vical internal carotid arteries without significant stenosis b y NASCET criteria. Vertebral arteries: Normal contrast opa cification of the bilateral cervical vertebral arteries. Arch anatomy: Conventional. Nonvascular findings: No acute findings within the neck soft tissues. IMPRESSION: Lack of contrast opacification of the d istal left M1, suggestive of M1 occlusion. This represents large pro ximal vessel occlusion in consultation with neurovascular may be sought if desired. Discussed with ED staff by Dr. Travis at time o f this dictation. Unremarkable CTA of the neck. Signed: Supriya Travis MD Report Verified Date/Time: 02/15/2020 11:25:44 Reading Location: [address] Neuro Re ading Room Procedure Note Interface, External Ris In - 02/15/2020 11:27 AM CDT FINAL REPORT CT, CAROTID, ANGIO, CT, CTANGIO BRAIN BRAIN CT WITHOUT CONTRAST INDICATION: Neuro deficit, acute, stroke suspected COMPARISON: CT head of the same date TECHNIQUE: Rapid acquisition spiral images were obtained between the aortic arch and the cranial vertex during intravenous contrast infusion to reconstruct axial images and angiographic 3D maximum intensity projections (MIP). 3-D volumetric reformatted images were created at a dedicated workstation. Precontrast images of the brain were also obtained. Stenosis evaluation reported in compliance with NASCET criteria. DOSE REDUCTION: Dose modulation, iterative reconstruction, and/or weight-based adjustment of the mA/kV was utilized to reduce the radiation dose to as low as reasonably achievable. FINDINGS: CTA BRAIN: Internal carotid arteries: Petrous, cavernous and supraclinoid portions patent. Middle cerebral arteries: Lack of contrast opacification of the distal left M1, suggestive of M1 occlusion. Right MCA M1-M2 branches demonstrate normal contrast enhancement. Anterior cerebral arteries: Bilateral FORREST A1-A2 branches demonstrate normal contrast enhancement. Basilar system: Normal contrast opacification of the vertebrobasilar system. Posterior cerebral arteries: Normal contrast opacification of the bilateral COTTON CLEANER P1-P2 branches. Venous opacification: Major dural sinuses unremarkable for bolus timing. Additional findings: None. CTA NECK: Common carotid arteries: There is normal contrast opacification of the bilateral common carotid arteries. Cervical internal carotid arteries: 50-60% narrowing of the left proximal ICA secondary to calcific atherosclerotic plaque. Normal contrast opacification of the right cervical internal carotid arteries without significant stenosis by NASCET criteria. Vertebral arteries: Normal contrast opacification of the bilateral cervical vertebral arteries. Arch anatomy: Conventional. Nonvascular findings: No acute findings within the neck soft tissues. IMPRESSION: Lack of contrast opacification of the distal left M1, suggestive of M1 occlusion. This represents large proximal vessel occlusion in consultation with neurovascular may be sought if desired. Discussed with ED staff by Dr. Travis at time of this dictation. Unremarkable CTA of the neck. Signed: Supriya Travis MD Report Verified Date/Time: 02/15/2020 11:25:44 Reading Location: [address] Neuro Reading Room Performing Organization Address City/State/[facility] Ph one Number [employer] RIS * CTA brain (02/15/2020 11:22 AM CDT) Specimen Narrative Performed At FINAL REPORT [employer] RIS CT, CAROTID, ANGIO, CT, CTANGIO BRAIN BRAIN CT WITHOUT CONTRAST INDICATION: Neuro deficit, acute, strok e suspected COMPARISON: CT head of the same date TECHNIQUE: Rapid acquisition spiral images were ob tained between the aortic arch and the cranial vertex during intraveno us contrast infusion to reconstruct axial images and angiograph ic 3D maximum intensity projections (MIP). 3-D volumetric refor matted images were created at a dedicated workstation. Precontrast im ages of the brain were also obtained. Stenosis evaluation reported in complia nce with NASCET criteria. DOSE REDUCTION: Dose modulation, iterat nestor reconstruction, and/or weight-based adjustment of the mA/kV wa s utilized to reduce the radiation dose to as low as reasonably achievable. FINDINGS: CTA BRAIN: Internal carotid arteries: Petrous, cav ernous and supraclinoid portions patent. Middle cerebral arteries: Lack of contr ast opacification of the distal left M1, suggestive of M1 occlus ion. Right MCA M1-M2 branches demonstrate normal contrast enhancement . Anterior cerebral arteries: Bilateral A CA A1-A2 branches demonstrate normal contrast enhancement. Basilar system: Normal contrast opacifi cation of the vertebrobasilar system. Posterior cerebral arteries: Normal con trast opacification of the bilateral COTTON CLEANER P1-P2 branches. Venous opacification: Major dural sinus es unremarkable for bolus timing. Additional findings: None. CTA NECK: Common carotid arteries: There is ranjit l contrast opacification of the bilateral common carotid arteries. Cervical internal carotid arteries: 50- 60% narrowing of the left proximal ICA secondary to calcific athe rosclerotic plaque. Normal contrast opacification of the right cer vical internal carotid arteries without significant stenosis b y NASCET criteria. Vertebral arteries: Normal contrast opa cification of the bilateral cervical vertebral arteries. Arch anatomy: Conventional. Nonvascular findings: No acute findings within the neck soft tissues. IMPRESSION: Lack of contrast opacification of the d istal left M1, suggestive of M1 occlusion. This represents large pro ximal vessel occlusion in consultation with neurovascular may be sought if desired. Discussed with ED staff by Dr. Travis at time o f this dictation. Unremarkable CTA of the neck. Signed: Supriya Travis MD Report Verified Date/Time: 02/15/2020 11:25:44 Reading Location: [address] Neuro Re ading Room Procedure Note Interface, External Ris In - 02/18/2020 12:49 PM CDT FINAL REPORT CT, CAROTID, ANGIO, CT, CTANGIO BRAIN BRAIN CT WITHOUT CONTRAST INDICATION: Neuro deficit, acute, stroke suspected COMPARISON: CT head of the same date TECHNIQUE: Rapid acquisition spiral images were obtained between the aortic arch and the cranial vertex during intravenous contrast infusion to reconstruct axial images and angiographic 3D maximum intensity projections (MIP). 3-D volumetric reformatted images were created at a dedicated workstation. Precontrast images of the brain were also obtained. Stenosis evaluation reported in compliance with NASCET criteria. DOSE REDUCTION: Dose modulation, iterative reconstruction, and/or weight-based adjustment of the mA/kV was utilized to reduce the radiation dose to as low as reasonably achievable. FINDINGS: CTA BRAIN: Internal carotid arteries: Petrous, cavernous and supraclinoid portions patent. Middle cerebral arteries: Lack of contrast opacification of the distal left M1, suggestive of M1 occlusion. Right MCA M1-M2 branches demonstrate normal contrast enhancement. Anterior cerebral arteries: Bilateral FORREST A1-A2 branches demonstrate normal contrast enhancement. Basilar system: Normal contrast opacification of the vertebrobasilar system. Posterior cerebral arteries: Normal contrast opacification of the bilateral [employer] P1-P2 branches. Venous opacification: Major dural sinuses unremarkable for bolus timing. Additional findings: None. CTA NECK: Common carotid arteries: There is normal contrast opacification of the bilateral common carotid arteries. Cervical internal carotid arteries: 50-60% narrowing of the left proximal ICA secondary to calcific atherosclerotic plaque. Normal contrast opacification of the right cervical internal carotid arteries without significant stenosis by NASCET criteria. Vertebral arteries: Normal contrast opacification of the bilateral cervical vertebral arteries. Arch anatomy: Conventional. Nonvascular findings: No acute findings within the neck soft tissues. IMPRESSION: Lack of contrast opacification of the distal left M1, suggestive of M1 occlusion. This represents large proximal vessel occlusion in consultation with neurovascular may be sought if desired. Discussed with ED staff by Dr. Travis at time of this dictation. Unremarkable CTA of the neck. Signed: Supriya Travis MD Report Verified Date/Time: 02/15/2020 11:25:44 Reading Location: [facility] B1 [id number] Neuro Reading Room Performing Organization Address City/State/Zipcode Ph one Number [facility] * CT brain/stroke protocol (02/15/2020 10:45 AM CDT) Specimen Narrative Performed At FINAL REPORT [facility] CT, BRAIN/STROKE PROTOCOL CLINICAL INDICATION: Stroke, follow u p stroke COMPARISON: None TECHNIQUE: Noncontrast axial CT imagi ng of the brain and skull. DOSE REDUCTION: Dose modulation, iterat nestor reconstruction, and/or weight-based adjustment of the mA/kV wa s utilized to reduce the radiation dose to as low as reasonably achievable. FINDINGS: No intracranial hemorrhage, midline manas ft or mass effect. Midline structures are normally developed. Mild chronic microvascular ischemic changes of the periventricular and subcortical white matter are present. No hydrocephalus. Orbits are within normal limits. Prior bilateral lens surgery. Atherosclerotic calcification of the in tracranial internal carotid and vertebral arteries. No obstructive paranasal sinus disease. IMPRESSION: No acute intracranial findings. Finding s discussed with ED staff by Dr. Travis at time of this dictation. If there is persistent clinical concern for intracranial pathology, MR examination is recommended for furth er characterization. Signed: Supriya Travis MD Report Verified Date/Time: 02/15/2020 10:42:58 Reading Location: [address] Neuro Re ading Room Procedure Note Interface, External Ris In - 02/15/2020 10:45 AM CDT FINAL REPORT CT, BRAIN/STROKE PROTOCOL CLINICAL INDICATION: Stroke, follow up stroke COMPARISON: None TECHNIQUE: Noncontrast axial CT imaging of the brain and skull. DOSE REDUCTION: Dose modulation, iterative reconstruction, and/or weight-based adjustment of the mA/kV was utilized to reduce the radiation dose to as low as reasonably achievable. FINDINGS: No intracranial hemorrhage, midline shift or mass effect. Midline structures are normally developed. Mild chronic microvascular ischemic changes of the periventricular and subcortical white matter are present. No hydrocephalus. Orbits are within normal limits. Prior bilateral lens surgery. Atherosclerotic calcification of the intracranial internal carotid and vertebral arteries. No obstructive paranasal sinus disease. IMPRESSION: No acute intracranial findings. Findings discussed with ED staff by Dr. Travis at time of this dictation. If there is persistent clinical concern for intracranial pathology, MR examination is recommended for further characterization. Signed: Supriya Travis MD Report Verified Date/Time: 02/15/2020 10:42:58 Reading Location: [address] Neuro Reading Room Performing Organization Address City/State/Zipcode Ph one Number GE RIS after 05/26/2019 Insurance Type Payer Benefit Subscriber ID Effective Phone Address Plan / Dates Group Maps Contracted [employer] [id number] 2018-P HMO ALL resent CDC REVIEW CDC REVIEW [id number] 2020-[place] [place] [address] ([place]) [place] [address] Advance Directives For more information, please contact: [phone] Date Inactivated Comments Code Status Date Activated 02/27/2020 7:57 PM Full Code 02/15/2020 5:02 PM This code status was determined by: Patient 02/15/2020 5:02 PM Full Code 02/15/2020 5:02 PM This code status was determined by: Patient
--- OUTSIDE RECORDS SUMMARY | 2020-05-26 17:43 | XMS REPORT | Continuity of Care Document ---
Author Author [facility] t Organization [facility] Address [facility] [place] [address] Phone Unavailable Care Team Providers Care Systems Mechanic Name Role Phone MD RILEY STEVENS MD PCP Alexx MONTALVO, Ross Attphys Christine MONTALVO, Nathan Dasilva Attphys Jose L MONTALVO, Walter Meeks Attphys Merchant MONTALVO, Linden Attphys Gina Ordonez MD, Pedro Elizondo Attphys Erma MONTALVO, Chelsea Sanchez Attphys Alcides Covarrubias CRNA Attphys Virtual, Surgeon Attphys Unavailable ROSS ANDINO Attphys Unavailable ED SHETTY Attphys Unavailable Michael RN, Bailey Attphys Unavailable FUENTES DAVE Attphys Unavailable PEDRO HALE Admphys Unavailable ED SHETTY Admphys Unavailable Payers Payer Name Policy Type Policy Number Effective Date Expiration Date Norm PHELANANPLUSTEXANPLUS HMO [id number] Contracte d [id number] 2018 00:00[facility]00 [facility] REVIEWC [id number] Bryce BERRY [id number] 2020 00:00:00 [facility] [id number] 2019 00:00:00 [facility] Cdc Review Covid19 [id number] [facility] Medicare A & B [id number] 2002 00:00:00 [facility] Problems Condition Name Condition Details Condition Category Status Onset Date Resolution Date Last Treatment Date Treating Clinician Comments Source Acute pulmonary edema Acute pulmonary edema Disease Active 00:00:00 [facility] Acute ischemic stroke Acute ischemic stroke Disease Active 00:00:00 [facility] Cerebral edema Cerebral edema Disease Active 2020-02-16 00:00:00 [facility] Aphasia Aphasia Disease Active 2020-02-16 00:00:00 [facility] Essential hypertension Essential hypertension Disease Active 2020-02-16 00:00:00 [facility] Peripheral artery disease Peripheral artery disease Disease Ac tive 2020-02-16 00:00:00 [facility] Poorly controlled diabetes mellitus Poorly controlled diabetes m ellitus Disease Active 2020-02-16 00:00:00 [facility] S t [facility] Paroxysmal atrial fibrillation Paroxysmal atrial fibrillation Disea se Active 2020-02-16 00:00:00 [facility] Cerebrovascular accident (CVA) due to occlusion of lef t middle cerebral artery Cerebrovascular accident (CVA) due to occlusion of left middle cerebral artery Disease Active 2020-02-15 00:00:00 [facility] Cellulitis of foot Cellulitis of foot Problem Active 2015-11-24 00:00:0 0 [facility] Gangrene of toe Gangrenous toe Problem Active 2015-11-24 00:00:00 [facility] Peripheral arterial disease PAD (peripheral artery disease) Problem Active [facility] Gangrene of toe of right foot Gangrene of toe of right foot Problem Active [facility] Urinary tract infection Problem Active [facility] Allergies, Adverse Reactions, Alerts Allergy Name Allergy Type Status Severity Reaction(s) Onset Date Inacti ve Date Treating Clinician Comments Source No Known Allergies DA Active U 2019-11-03 00:00:00 [facility] No Known Allergies DA Active U 2016-05-24 00:00:00 [facility] Social History Social Habit Start Date Stop Date Quantity Comments Source Sex Assigned At [facility] Tobacco use and exposure 2020-02-25 00:00:00 2020-02-25 00:00:00 Ruth carvalho used [facility] Smoking Status Start Date Stop Date Source Former smoker 2020-02-25 00:00:00 2020-02-25 00:00:00 [facility] Medications Ordered Medication Name Filled Medication Name Start Date Stop Da te Current Medication? Ordering Clinician Indication Dosage Frequency Signature (SIG) Comments Components Source clopidogreL (PLAVIX) 75 mg tablet 2020-02-28 00:00:00 2020 23:59:00 Yes 75mg QD Take 1 tablet (75 mg total) by mouth stevie fowler [facility] finasteride (PROSCAR) 5 mg tablet 2020-02-28 00:00:00 2020 23:59:00 Yes 5mg QD Take 1 tablet (5 mg total) by mouth mercy saeed [facility] cycloSPORINE (SANDIMMUNE) 25 MG capsule 2020-02-27 17:57:18 Yes 50mg Take 50 mg by mouth once in morning. [facility] cycloSPORINE modified (NEORAL) 25 MG capsule 2020-02-27 17:57:18 Yes 25mg Take 25 mg by mouth once in evening. [facility] sirolimus (RAPAMUNE) 1 MG tablet 2020-02-27 17:57:18 Yes 1mg QD Take 1 mg by mouth daily. [facility] predniSONE (DELTASONE) 5 MG tablet 2020-02-27 17:57:18 Yes 5mg QD Take 5 mg by mouth daily. [facility] metoprolol tartrate (LOPRESSOR) 100 MG tablet 2020-02-27 17:57:1 8 Yes 100mg Q.5D Take 100 mg by mouth 2 (two) times daily. [facility] NIFEdipine (ADALAT CC) 90 MG 24 hr tablet 2020-02-27 17:57:18 Yes 90mg QD Take 90 mg by mouth daily. [facility] alendronate (FOSAMAX) 70 MG tablet 2020-02-27 17:57:18 Yes 70mg Take 70 mg by mouth every 7 days Take in the morning with a full glass of water, on an empty stomach, and do not take anything else by mouth or lie down for the next 30 min. . [facility] torsemide (DEMADEX) 10 MG tablet 2020-02-27 17:57:18 Yes 10mg Q.5D Take 10 mg by mouth 2 (two) times daily. [facility] tamsulosin (FLOMAX) 0.4 mg Cap 24 hr capsule 2020-02-27 17:57:18 Yes .4mg QD Take 0.4 mg by mouth daily. [facility] insulin detemir U-100 (LEVEMIR) 100 unit/mL (3 mL) InPn inje ction 2020-02-27 10:28:2020-02-27 00:00:00 No QD Inject subcutane ously nightly. [facility] insulin aspart U-100 (NOVOLOG) 100 unit/mL injection 2020-02-27 10:28:2020-02-27 00:00:00 No Injec t subcutaneously 3 (three) times daily before meals. [facility] losartan (COZAAR) 25 MG tablet 2020-02-27 10::2020-02-27 00 :00:00 No 25mg QD Take 25 mg by mouth daily. [facility] pravastatin (PRAVACHOL) 10 MG tablet 2020-02-27 10:28: 2020-02-27 00:00:00 No 10mg QD Take 10 mg by mouth daily. [facility] apixaban (ELIQUIS) 5 mg Tab tablet 2020-02-27 00:00:00 Yes 5mg Q.5D Take 1 tablet (5 mg total) by mouth 2 (two) times daily. [facility] insulin detemir U-100 (LEVEMIR) 100 unit/mL (3 mL) InPn inje ction 2020-02-27 00:00:00 Yes 12U Q.5D Inject 0.1 2 mLs (12 Units total) subcutaneously 2 (two) times daily. [facility] insulin aspart U-100 (NOVOLOG) 100 unit/mL injection 2 00:00:00 Yes 5U Inject 5 Units subcutaneously 3 (three) times daily before meals. [facility] cycloSPORINE modified (NEORAL) 25 MG capsule 202 00:00:00 2021-02-26 23:59:00 Yes 25mg Q.5D Take 1 capsule (25 mg total) by mouth 2 (two) times daily. [facility] rosuvastatin (CRESTOR) 40 MG tablet 2020-02-27 00:00:0 0 2021-02-26 23:59:00 Yes 40mg QD Take 1 tablet (40 mg total) by mouth nig htly. [facility] ipratropium-albuteroL (DUO-NEB) 0.5 mg-3 mg(2.5 mg base)/3 mL nebulizer solution 2020-02-27 00:00:00 2021-02-21 23:59:00 Yes 3mL Take 3 mLs by nebulization every 4 (four) hours for 360 days. [facility] predniSONE (DELTASONE) 5 MG tablet 2013-04-10 00:00:00 00:00:00 No TAKE 1 TABLET BY MOUTH BY MOUTH DIREC SENDY [facility] NIFEdipine (PROCARDIA-XL) 90 MG (OSM) 24 hr tablet 2013-01-15 00:00:00 2020-02-15 00:00:00 No TAKE 1 TABLET BY [place] TH EVERY DAY [facility] sulfamethoxazole-trimethoprim (BACTRIM,SEPTRA) 400-80 mg per tablet 2013-01-15 00:00:00 2020-02-15 00:00:00 No TAKE 1 TABLET BY MOUTH EVERY DAY [facility] predniSONE (DELTASONE) 5 MG tablet 2012-10-13 00:00:00 00:00:00 No TAKE 1 TABLET BY MOUTH DIRECTED [facility] predniSONE (DELTASONE) 5 MG tablet 2012-09-18 00:00:00 00:00:00 No TAKE 1 TABLET BY MOUTH DIRECTED [facility] Alendronate Sodium Alendronate Sodium Yes 70 Us e As Directed [facility] Calcium Carbonate (Tums) 200 Mg TAB.CHEW Calcium Carbo pati (Tums) 200 Mg TAB.CHEW Yes Daily [facility] Cholecalciferol (Vitamin D3) (Vitamin D3) 1,000 Unit T ABLET Cholecalciferol (Vitamin D3) (Vitamin D3) 1,000 Unit TABLET Yes 2 Daily [facility] Cyclosporine Cyclosporine Yes 25 Twice A Day [facility] Insulin Aspart (Novolog) 100 Unit/1 Ml CARTRIDGE Insul in Aspart (Novolog) 100 Unit/1 Ml CARTRIDGE Yes Three Times Daily With Meals [facility] Insulin Detemir (Levemir) 100 Unit/1 Ml VIAL Insulin D etemir (Levemir) 100 Unit/1 Ml VIAL Yes Bedtime [facility] Losartan Potassium Losartan Potassium Yes 25 Da gwendolyn [facility] Metoprolol Succinate Metoprolol Succinate Yes 100 Twice A Day [facility] Nifedipine Nifedipine Yes [address] [facility] [place]-3 Fatty Acids ([place]-3) 1,000 Mg CAPSULE [place]-3 Fatty Acids ([place]-3) 1,000 Mg CAPSULE Yes 300 Daily [facility] Pravastatin Sodium Pravastatin Sodium Yes 10 Be dtime [facility] Prednisone Prednisone Yes 5 Daily [facility] Sirolimus (Rapamune) 1 Mg TABLET Sirolimus (Rapamune) 1 Mg TABLET Yes 1 Daily [facility] Sulfamethoxazole/Trimethoprim (Sulfamethoxazole-Tmp Ds Tablet) 1 Each TABLET Sulfamethoxazole/Trimethoprim (Sulfamethoxazole-Tmp Ds Tablet) 1 Each TABLET Yes 1 Daily [facility] Torsemide Torsemide Yes 10 Twice A Day [facility] Acetaminophen With Codeine (Tylenol With Codeine #3 Ta blet) 1 Each TABLET Acetaminophen With Codeine (Tylenol With Codeine #3 Tablet) 1 Each TABLET 2018-10-19 00:00:00 No 300 Every 6 Hours as nee ded for Pain [facility] Calcium Carbonate (Tums) 300 Mg TAB.CHEW Calcium Carbo pati (Tums) 300 Mg TAB.CHEW 2018-10-19 00:00:00 No 2 Daily [facility] Ciprofloxacin Hcl (Cipro) 500 Mg TABLET Ciprofloxacin Hcl (C ipro) 500 Mg TABLET 2018-10-19 00:00:00 No 500 Twice A Day [facility] Clindamycin Hcl Clindamycin Hcl 2018-10-19 00:00:00 No 300 Three Times A Day [facility] Famotidine Famotidine 2018-10-19 00:00:00 No 20 Stevie ly [facility] Insulin Glargine (Lantus 3ML Pen) 100 Units/1 Ml INJ I nsulin Glargine (Lantus 3ML Pen) 100 Units/1 Ml INJ 2018-10-19 00:00:00 No 25 Daily [facility] [place]-3 Fatty Acids ([place]-3) 1,000 Mg CAPSULE [place]-3 Fatty Acids ([place]-3) 1,000 Mg CAPSULE 2018-10-19 00:00:00 No 1000 Twice A Day [facility] Ondansetron Hcl (Zofran*) 4 Mg TABLET Ondansetron Hcl (Zofran*) 4 Mg TABLET 2018-10-19 00:00:00 No 4 Every 4 Ho urs as needed for Nausea And Vomiting [facility] Sulfamethoxazole/Trimethoprim (Bactrim Ds Tablet) 1 Ea ch TABLET Sulfamethoxazole/Trimethoprim (Bactrim Ds Tablet) 1 Each TABLET 2018-09-16 00:00:00 No 1 Bedtime [facility] Aspirin Aspirin 2016-01-26 00:00:00 No 81 Daily [facility] Cefepime Hcl Cefepime Hcl 2016-01-26 00:00:00 No 1 [facility] Insulin Detemir (Levemir) 100 Unit/1 Ml VIAL Insulin D etemir (Levemir) 100 Unit/1 Ml VIAL 2016-01-26 00:00:00 No 100 [facility] Insulin Glargine (Lantus 3ML Pen) 100 Units/1 Ml INJ I nsulin Glargine (Lantus 3ML Pen) 100 Units/1 Ml INJ 2016-01-26 00:00:00 No 10 Before Supper [facility] Losartan Potassium (Cozaar) 25 Mg TABLET Losartan Pota ssium (Cozaar) 25 Mg TABLET 2016-01-26 00:00:00 No 25 Daily [facility] [place]-3 Fatty Acids ([place]-3) 1,000 Mg CAPSULE [place]-3 Fatty Acids ([place]-3) 1,000 Mg CAPSULE 2016-01-26 00:00:00 No 1000 Daily [facility] Oxycodone Hcl/Acetaminophen (Percocet 5-325 Mg Tablet) 1 Each TABLET Oxycodone Hcl/Acetaminophen (Percocet 5-325 Mg Tablet) 1 Each TABLET 2016-01-26 00:00:00 No 1 Every 6 Hours as needed for Pain [facility] Smz-Tmp Smz-Tmp 2016-01-26 00:00:00 No 400 Daily [facility] Vancomycin Hcl Vancomycin Hcl 2016-01-26 00:00:00 No 1 [facility] Zinc Acetate/[place]ead[place]weet/[place] (Amerigel Wound Dressing Gel) 28.3 Gm GEL..GRAM. Zinc Acetate/[place]weet/[place] (Amerigel Wound Dressing Gel) 28.3 Gm GEL..GRAM. 2016-01-26 00:00:00 No [facility] Vital Signs Vital Name Observation Time Observation Value Comments Source Systolic blood pressure 2020-02-27 16:42:00 120 mm[Hg] [facility] Diastolic blood pressure 2020-02-27 16:42:00 57 mm[Hg] [facility] Heart rate 2020-02-27 16:42:00 82 /min [facility] Body temperature 2020-02-27 16:42:00 36.39 Hiwot [facility] Respiratory rate 2020-02-27 16:42:00 18 /min [facility] Oxygen saturation in Arterial blood by Pulse oximetry 02-26 16:42:00 100 /min [facility] 2020-02-27 05:00:00 74.4 kg [facility] Body Temperature 2020-01-04 11:29:00 98.2 [degF] [facility] Weight 2020-01-02 01:12:00 156.50 [lb_av] [facility] BMI (Body Mass Index) 2020-01-02 01:12:00 26.0 kg/m2 [facility] Procedures Procedure Date / Time Performed Performing Clinician Sour e RHYTHM STRIP - SCAN 2020-02-28 13:31:38 Provider, Default Scanni ng [facility] UROLOGY REPORT - SCAN 2020-02-28 13:31:35 Provider, Default Scan meli [facility] REPORT OF PROCEDURE - ENDOSCOPY SCAN 2020-02-28 13:31:33 Pro vider, Default Scanning [facility] POCT-GLUCOSE METER 2020-02-27 17:10:00 [facility] POCT-[facility]UCOSE [facility]ER 2020-02-27 12:14:00 [facility] POCT-GLUCOSE METER 2020-02-27 08:44:00 [facility] BASIC METABOLIC PANEL (7) 2020-02-27 04:42:00 Ricardo Crystal [facility] CYCLOSPORINE LEVEL 2020-02-27 04:42:00 Rachelle Ariza [facility] SIROLIMUS LEVEL 2020-02-27 04:42:00 Rachelle Ariza [facility] CBC W/PLT COUNT & AUTO DIFFERENTIAL 2020-02-27 04:42:00 Marah [facility] POCT-GLUCOSE METER 2020-02-26 21:54:00 Merchant [facility] POCT-GLUCOSE METER 2020-02-26 17:38:00 Merchant, [facility] POCT-GLUCOSE METER 2020-02-26 11:16:00 Merchant, [facility] POCT-GLUCOSE METER 2020-02-26 08:51:00 Merchant, [facility] BASIC METABOLIC PANEL (7) 2020-02-26 04:26:00 Ricardo Crystal [facility] CYCLOSPORINE LEVEL 2020-02-26 04:26:00 MilanRachelle bowen [facility] SIROLIMUS LEVEL 2020-02-26 04:26:00 MilansRachelle [facility] CBC W/PLT COUNT & AUTO DIFFERENTIAL 2020-02-26 04:26:00 Marah [facility] POCT-GLUCOSE METER 2020-02-25 22:02:00 Merchant, [facility] POCT-GLUCOSE METER 2020-02-25 17:53:00 Reehant, [facility] POCT-GLUCOSE METER 2020-02-25 11:41:00 Merchant, [facility] POCT-GLUCOSE METER 2020-02-25 09:03:00 Merchant, [facility] BASIC METABOLIC PANEL (7) 2020-02-25 04:50:00 Marah [facility] CBC W/PLT COUNT & AUTO DIFFERENTIAL 2020-02-25 04:50:00 Marah [facility] POCT-GLUCOSE METER 2020-02-24 21:44:00 Constantino Domingo [facility] POCT-GLUCOSE METER 2020-02-24 17:52:00 Jose L, [facility] POCT-GLUCOSE METER 2020-02-24 14:46:00 [facility] POCT-GLUCOSE METER 2020-02-24 11:36:00 [facility] BASIC METABOLIC PANEL (7) 2020-02-24 06:20:[facility] W/[facility]T COUNT & AUTO DIFFERENTIAL 2020-02-24 06:20:00 Ricardo Crystal [facility] POCT-GLUCOSE METER 2020-02-23 21:06:00 [facility] POCT-GLUCOSE METER 2020-02-23 17:23:00 [facility] POCT-GLUCOSE METER 2020-02-23 13:10:00 [facility] POCT-GLUCOSE METER 2020-02-23 07:54:00 [facility] BASIC METABOLIC PANEL (7) 2020-02-23 05:02:00 [facility] W/[facility]T COUNT & AUTO DIFFERENTIAL 2020-02-23 05:02:00 Ricardo Crystal [facility] POCT-GLUCOSE METER 2020-02-22 23:03:00 [facility] 2020-02-22 18:11:00 [facility] SARS-COV2/RT-PCR ([facility]) 2020-02-22 16:57:00 Delvin Rios [facility] POCT-GLUCOSE METER 2020-02-22 13:05:00 [facility] REPORT OF PROCEDURE - ENDOSCOPY SCAN 2020-02-22 10:22:13 Pro videYomaira carvalho [facility] POCT-GLUCOSE METER 2020-02-22 08:40:00 [facility] BASIC METABOLIC PANEL (7) 2020-02-22 04:49:00 Crystal, [facility] CBC W/PLT COUNT & AUTO DIFFERENTIAL 2020-02-22 04:49:00 Ricardo Crystal [facility] POCT-GLUCOSE METER 2020-02-21 21:11:00 [facility] POCT-GLUCOSE METER 2020-02-21 17:29:00 [facility] POCT-GLUCOSE METER 2020-02-21 13:45:00 [facility] 2D ECHO W/ DOPPLER (CW/PW/COLOR) 2020-02-21 12:34:34 Hess Gamal bowen [facility] POCT-GLUCOSE METER 2020-02-21 08:20:[address] [facility] [address] CHEST WITHOUT IV CONTRAST 2020-02-21 05:42:00 [facility] BASIC METABOLIC PANEL (7) 2020-02-21 05:22:00 Marah [facility] SIROLIMUS LEVEL 2020-02-21 05:22:00 [facility] CYCLOSPORINE LEVEL 2020-02-21 05:22:00 [facility] CBC W/PLT COUNT & AUTO DIFFERENTIAL 2020-02-21 05:22:00 Marah [facility] POCT-GLUCOSE METER 2020-02-20 21:11:00 [facility]ER 2020-02-20 18:08:00 [facility] POCT-GLUCOSE METER 2020-02-20 12:10:00 [facility] POCT-GLUCOSE METER 2020-02-20 08:18:00 [facility] BASIC METABOLIC PANEL (7) 2020-02-20 05:27:00 [facility] CBC W/PLT COUNT & AUTO DIFFERENTIAL 2020-02-20 05:27:00 Marah [facility] POCT-GLUCOSE METER 2020-02-19 21:11:[address] [facility] POCT-GLUCOSE METER 2020-02-19 17:37:[address] [facility] MR BRAIN WITHOUT IV CONTRAST 2020-02-19 16:18:00 ElmoGabon shayne [facility] POCT-GLUCOSE METER 2020-02-19 11:29:[address] [facility] POCT-GLUCOSE METER 2020-02-19 09:27:[address] [facility] POCT-GLUCOSE METER 2020-02-19 08:49:[address] [facility] BASIC METABOLIC PANEL (7) 2020-02-19 04:34:00 Ricardo Crystal [facility] CYCLOSPORINE LEVEL 2020-02-19 04:34:00 Edwin Meek [facility] SIROLIMUS LEVEL 2020-02-19 04:34:[address] [facility] ANTI-NUCLEAR ANTIBODY (JACKIE) 2020-02-19 04:34:00 Brennen [facility] C-REACTIVE PROTEIN 2020-02-19 04:34:00 [facility] CBC W/PLT COUNT & AUTO DIFFERENTIAL 2020-02-19 04:34:00 [facility] POCT-GLU[facility]SE METER 2020-02-18 21:28:[address] [facility] POCT-GLUCOSE METER 2020-02-18 17:38:00 [facility] POCT-GLUCOSE METER 2020-02-18 11:18:00 [facility] POCT-GLUCOSE METER 2020-02-18 07:56:00 [facility] BASIC METABOLIC PANEL (7) 2020-02-18 03:30:00 Ricardo Crystal [facility] CYCLOSPORINE LEVEL 2020-02-18 03:30:00 Edwin Meek [facility] SIROLIMUS LEVEL 2020-02-18 03:30:[address] [facility] CBC W/PLT COUNT & AUTO DIFFERENTIAL 2020-02-18 03:30:00 Ricardo Crystal [facility] POCT-GLUCOSE METER 2020-02-17 22:23:00 [facility] POCT-GLUCOSE METER 2020-02-17 17:03:00 [facility] BASIC METABOLIC PANEL (7) 2020-02-17 17:01:00 Kashmir Ladd [facility] POCT-GLUCOSE METER 2020-02-17 11:09:00 [facility] POCT-GLUCOSE METER 2020-02-17 08:00:00 [facility] BLOOD GAS, ARTERIAL 2020-02-17 07:23:00 [place] [facility] KETONE, BLOOD 2020-02-17 06:45:00 [place] [facility] POCT-GLUCOSE METER 2020-02-17 06:33:00 [facility] XR CHEST 1 VIEW PORTABLE/BEDSIDE 2020-02-17 06:29:00 [place] [facility] BASIC METABOLIC PANEL (7) 2020-02-17 05:50:00 Marah Ricardo [place] [facility] CYCLOSPORINE LEVEL 2020-02-17 05:50:00 Edwin Meek [facility] SIROLIMUS LEVEL 2020-02-17 05:50:[address] [facility] CBC W/PLT COUNT & AUTO DIFFERENTIAL 2020-02-17 05:50:00 Marah Ricardo [place] [facility] POCT-GLUCOSE METER 2020-02-16 22:39:00 [facility] POCT-GLUCOSE METER 2020-02-16 17:22:00 [facility] POCT-GLUCOSE METER 2020-02-16 11:50:00 [facility] URINE CULTURE 2020-02-16 09:08:00 Alexx, [facility] URINALYSIS W/ REFLEX URINE CULTURE 2020-02-16 09:08:00 [facility] SIROLIMUS LEVEL 2020-02-16 09:08:00 CarolJose De Jesus [facility] POCT-GLUCOSE METER 2020-02-16 07:47:00 [facility] POCT-GLUCOSE METER 2020-02-16 06:23:00 [facility] BASIC METABOLIC PANEL (7) 2020-02-16 05:34:00 Crystal, [facility] TSH/FREE T4 IF INDICATED 2020-02-16 05:34:00 Crystal, [facility] RPR 2020-02-16 05:34:00 [facility] VITAMIN B12 2020-02-16 05:34:00 [facility] HEMOGLOBIN A1C 2020-02-16 05:34:00 Crystal, [facility] LIPID PANEL 2020-02-16 05:34:00 Crystal, [facility] CBC W/PLT COUNT & AUTO DIFFERENTIAL 2020-02-16 05:34:00 Crystal, [facility] CT BRAIN WITHOUT IV CONTRAST 2020-02-16 04:54:00 Delvin Naranjo [facility] 2D ECHO W/ DOPPLER (CW/PW/COLOR) 2020-02-16 04:04:19 Camacho Crystal [facility] POCT-GLUCOSE METER 2020-02-16 00:01:00 [facility] TROPONIN I 2020-02-15 19:10:00 Marah [facility] CBC W/PLT COUNT & AUTO DIFFERENTIAL 2020-02-15 19:09:[facility]IEW PORTABLE/BEDSIDE 2020-02-15 18:53:00 Camacho Crystal [facility] POCT-GLUCOSE METER 2020-02-15 15:01:00 [facility] [place] CEREBRAL 4 VESSEL ANGIOGRAM 2020-02-15 13:37:00 Brenna Naranjo [facility] SARS-COV2/RT-PCR ([facility]) 2020-02-15 11:54:00 Delvin Rios [facility] XR CHEST 2 VIEWS 2020-02-15 11:33:[address] [facility] CRITICAL CARE 2020-02-15 11:30:51 [facility]x [facility] PROCEDURE DONE OUTSIDE OR 2020-02-15 11:30:00 Virtual, Surgeon C [facility] ECG 12-LEAD 2020-02-15 11:28:05 Unknown, Hl7 Doctor [facility] PT/APTT 2020-02-15 11:25:00 Alexx, Anna [facility] [facility] TROPONIN I 2020-02-15 11:25:00 Alexx [facility] COMPREHENSIVE METABOLIC PANEL 2020-02-15 11:25:00 Thomas Andino [facility] CBC W/PLT COUNT & AUTO DIFFERENTIAL 2020-02-15 11:25:00 [facility] CTA BRAIN 2020-02-15 11:22:00 [facility] CT/CTA CAROTID 2020-02-15 11:22:00 [facility] CT BRAIN/STROKE TEST DESIGN 2020-02-15 10:45:00 Ilana Andino [facility] CT of abdomen and pelvis without contrast 2019-12-28 00:00:00 [facility] Computed tomography of chest without contrast 2019-12-28 00:00:0 0 [facility] DETACHMENT AT RIGHT LOWER LEG, MID, OPEN APPROACH 2019-10-25 00: 00:00 [facility] INSERTION OF INFUSION DEV INTO SUP VENA CAVA, PERC APPROACH 2019-10-22 00:00:00 [facility] FLUOROSCOPY OF AORTA, BI LE ART USING L OSM CONTRAST 2019-10-22 00:00:00 [facility] Ultrasound, renal 2019-10-20 00:00:00 [facility] Plan of Care Planned Activity Planned Date Details Comments Source Future Scheduled Test 2020-08-18 00:00:00 Hemoglobin A1c amy surement (procedure) [code = 86317689] [facility] r Future Scheduled Test 2020-03-11 00:00:00 INFLUENZA VACCINE (#1) [code = INFLUENZA VACCINE (#1)] [facility] r Future Scheduled Test 2019-07-12 00:00:00 MEDICARE ANNUAL WE LLNESS (YEAR 2 or FIRST YEAR if no IPPE) [code = MEDICARE ANNUAL WELLNESS (YEAR 2 or FIRST YEAR if no IPPE)] [facility] Future Scheduled Test 1950 00:00:00 DIABETIC EYE EXAM [code = DIABETIC EYE EXAM] [facility] Future Scheduled Test 1950 00:00:00 Diabetic foot exam ination (regime/therapy) [code = 419916760] [facility] Future Scheduled Test 1950 00:00:00 Urine screening fo r protein (procedure) [code = 492286957] [facility] Instructions Urinary Tract Infection - Men [facility] Encounters Start Date/Time End Date/Time Encounter Type Admission Type [facility] Care Department Encounter ID Source 2019-12-28 16:56:00 2020-01-04 13:46:00 Discharged Inpatient 1 ED SHETTY [facility] [id number] [facility] 2019-10-17 11:48:00 2019-11-03 01:00:00 Discharged Inpatient 1 DIOGENES [facility] [id number] [facility] 2018-08-31 21:43:00 2018-09-16 12:25:00 Discharged Inpatient 1 ED SHETTY [facility] [id number] [facility] Results Test Description Test Time Test Comments Results Result Comments Source POC-Glucose meter 2020-02-27 17:21:00 Test Item POC-Glucose Meter (test code = 1538) 176 mg/dL 70-110 H : TESTED AT [place] [id number] [facility], [address]: Circuit Board Repair Technician/Six Color Press Operator ID = [id number] for LUIS ALEXANDER Lab Interpretation (test code = 07076-8) Abnormal [facility] [id number] 17:21:00* Test Item Value Reference Range Interpretation Comments POC-GLUCOSE METER (BEAKER) (test code = 1538) 176 mg/dL 70-110 H : TESTED AT [place] [address] [facility], [address]: Circuit Board Repair Technician/Six Color Press Operator ID = [id number] for LUIS ALEXANDER Cyclosporine [id number] 13:14:00* Test Item Value Reference Range Interpretation Comments Cyclosporine Lvl (test code = 3520-4) <30 <400 ng/mL NARCISA (test code = NARCISA) Circuit Board Repair Technician ID - KATE Lab Interpretation (test code = 17553-7) Normal [facility] [id number] 13:14:00* Test Item Value Reference Range Interpretation Comments CYCLOSPORINE BLOOD (BEAKER) (test code = 672) < ng/mL <400 Circuit Board Repair Technician ID - SALLYPOCT-GLUCOSE [id number] 12:25:00* Test Item Value Reference Range Interpretation Comments POC-GLUCOSE METER (BEAKER) (test code = 1538) 141 mg/dL 70-110 H : TESTED AT [place] [address] [facility], [address]: Circuit Board Repair Technician/Six Color Press Operator ID = [id number] for LUIS ALEXANDER Sirolimus [id number] 11:28:00* Test Item Value Reference Range Interpretation Comments Sirolimus (test code = 34418-4) 3.8 ng/mL 5-15 L NARCISA (test code = NARCISA) Circuit Board Repair Technician ID - KATE Lab Interpretation (test code = 99807-5) [facility] [id number] 11:28:00* Test Item Value Reference Range Interpretation Comments SIROLIMUS LEVEL BLOOD (BEAKER) (test code = 806) 3.8 ng/mL 5.0-1 5.0 L Circuit Board Repair Technician ID - SALLYPOCT-GLUCOSE [id number] 08:54:00* Test Item Value Reference Range Interpretation Comments POC-GLUCOSE METER (BEAKER) (test code = 1538) 187 mg/dL 70-110 H : TESTED AT [facility] [address] [facility], [address]: Circuit Board Repair Technician/Six Color Press Operator ID = [id number] for LUIS ALEXANDER Basic Metabolic [id number] 06:33:00* Test Item Value Reference Range Interpretation Comments Sodium (test code = 2951-2) 137 meq/L 136-145 Potassium (test code = 2823-3) 3.3 meq/L 3.5-5.1 L Chloride (test code = 2075-0) 100 meq/L 98-107 CO2 (test code = 8-9) 28 meq/L 22-29 BUN (test code = 3094-0) 24 mg/dL 7-21 H Creatinine (test code = 2160-0) 0.91 mg/dL 0.57-1.25 Glucose (test code = 2345-7) 177 mg/dL 70-105 H Calcium (test code = 55719-7) 9.1 mg/dL 8.4-10.2 EGFR (test code = 02374-1) 80 mL/min/1.73 sq m ESTIMATED GFR IS NOT ACCURATE CREATININE CLEARANCE IN PREDICTING GLOMERULAR FILTRATION RATE. ESTIMATED GFR IS NOT APPLICABLE FOR DIALYSIS PATIENTS. NARCISA (test code = NARCISA) Circuit Board Repair Technician ID - PIAYA L Lab Interpretation (test code = 16267-8) Abnormal [facility] METABOLIC [id number] 06:33:00* Test Item Value Reference Range Interpretation Comments SODIUM (BEAKER) (test code = 381) 137 meq/L 136-145 POTASSIUM (BEAKER) (test code = 379) 3.3 meq/L 3.5-5.1 L CHLORIDE (BEAKER) (test code = 382) 100 meq/L 98-107 CO2 (BEAKER) (test code = 355) 28 meq/L 22-29 BLOOD UREA NITROGEN (BEAKER) (test code = 354) 24 mg/dL 7-21 H CREATININE (BEAKER) (test code = 358) 0.91 mg/dL 0.57-1.25 GLUCOSE RANDOM (BEAKER) (test code = 652) 177 mg/dL 70-105 H CALCIUM (BEAKER) (test code = 697) 9.1 mg/dL 8.4-10.2 EGFR (BEAKER) (test code = 1092) 80 mL/min/1.73 sq m ESTIMATED GFR IS NOT ACCURATE CREATININE CLEARANCE IN PREDICTING GLOMERULAR FILTRATION RATE. ESTIMATED GFR IS NOT APPLICABLE FOR DIALYSIS PATIENTS. Circuit Board Repair Technician ID - LIANNA GUERRERO with platelet count + automated [id number] 05:35:00 * Test Item Value Reference Range Interpretation Comments WBC (test code = 6690-2) 8.4 3.5- 10.5 K/L RBC (test code = 789-8) 4.64 4.63- 6.08 M/L MCHC (test code = 786-4) 30.5 32.3- 36.5 GM/DL L Hematocrit (test code = 4544-3) 37.7 % 40.1-51 L MCV (test code = 787-2) 81.3 fL 79-92.2 MCH (test code = 785-6) 24.8 pg 25.7-32.2 L RDW (test code = 788-0) 16.8 % 11.6-14.4 H Platelets (test code = 777-3) 282 150- 450 K/CU MM MPV (test code = 85113-8) 9.4 fL 9.4-12.4 nRBC (test code = 413) 0 0- 0 /100 WBC % Neutros (test code = 429) 75 % % Lymphs (test code = 430) 11 % % Monos (test code = 431) 12 % % Eos (test code = 432) 2 % % Baso (test code = 437) 0 % # Neutros (test code = 670) 6.28 1.78- 5.38 K/L H # Lymphs (test code = 414) 0.88 1.32- 3.57 K/L L # Monos (test code = 415) 1.01 0.30- 0.82 K/L H # Eos (test code = 416) 0.13 0.04- 0.54 K/L # Baso (test code = 417) 0.03 0.01- 0.08 K/L Immature Granulocytes-Relative (test code = 2801) 1 % 0-1 Lab Interpretation (test code = 29577-3) Abnormal [facility] W/PLT COUNT & AUTO [id number] 05:35:00* Test Item Value Reference Range Interpretation Comments WHITE BLOOD CELL COUNT (BEAKER) (test code = 775) 8.4 K/ L 3.5- 10.5 RED BLOOD CELL COUNT (BEAKER) (test code = 761) 4.64 M/ L 4.63-6 .08 HEMOGLOBIN (BEAKER) (test code = 410) 11.5 GM/DL 13.7-17.5 L HEMATOCRIT (BEAKER) (test code = 411) 37.7 % 40.1-51.0 L MEAN CORPUSCULAR VOLUME (BEAKER) (test code = 753) 81.3 fL 79. 0-92.2 MEAN CORPUSCULAR HEMOGLOBIN (BEAKER) (test code = 751) 24.8 pg 25.7-32.2 L MEAN CORPUSCULAR HEMOGLOBIN CONC (BEAKER) (test code = 752) 30.5 GM/DL 32.3-36.5 L RED CELL DISTRIBUTION WIDTH (BEAKER) (test code = 412) 16.8 % 11.6-14.4 H PLATELET COUNT (BEAKER) (test code = 756) 282 K/CU MM 150-450 MEAN PLATELET VOLUME (BEAKER) (test code = 754) 9.4 fL 9.4-12 .4 NUCLEATED RED BLOOD CELLS (BEAKER) (test code = 413) 0 /100 WBC 0 -0 NEUTROPHILS RELATIVE PERCENT (BEAKER) (test code = 429) 75 % LYMPHOCYTES RELATIVE PERCENT (BEAKER) (test code = 430) 11 % MONOCYTES RELATIVE PERCENT (BEAKER) (test code = 431) 12 % EOSINOPHILS RELATIVE PERCENT (BEAKER) (test code = 432) 2 % BASOPHILS RELATIVE PERCENT (BEAKER) (test code = 437) 0 % NEUTROPHILS ABSOLUTE COUNT (BEAKER) (test code = 670) 6.28 K/ L 1.78-5.38 H LYMPHOCYTES ABSOLUTE COUNT (BEAKER) (test code = 414) 0.88 K/ L 1.32-3.57 L MONOCYTES ABSOLUTE COUNT (BEAKER) (test code = 415) 1.01 K/ L 0. 30-0.82 H EOSINOPHILS ABSOLUTE COUNT (BEAKER) (test code = 416) 0.13 K/ L 0.04-0.54 BASOPHILS ABSOLUTE COUNT (BEAKER) (test code = 417) 0.03 K/ L 0. 01-0.08 IMMATURE GRANULOCYTES-RELATIVE PERCENT (BEAKER) (test code = 2801) 1 % 0-1 POCT-GLUCOSE [id number] 22:06:00* Test Item Value Reference Range Interpretation Comments POC-GLUCOSE METER (BEAKER) (test code = 1538) 287 mg/dL 70-110 H : TESTED AT [address], [address]: Circuit Board Repair Technician/Six Color Press Operator ID = [id number] for DIMPLE CHAIDEZ POCT-GLUCOSE [id number] 17:49:00* Test Item Value Reference Range Interpretation Comments POC-GLUCOSE METER (BEAKER) (test code = 1538) 241 mg/dL 70-110 H : TESTED AT [address], [address]: Circuit Board Repair Technician/Six Color Press Operator ID = [id number] for LUIS ALEXANDER CYCLOSPORINE [id number] 12:51:00* Test Item Value Reference Range Interpretation Comments CYCLOSPORINE BLOOD (BEAKER) (test code = 672) < ng/mL <400 Circuit Board Repair Technician ID - CHRISTINE MPOCT-GLUCOSE [id number] 12:09:00* Test Item Value Reference Range Interpretation Comments POC-GLUCOSE METER (BEAKER) (test code = 1538) 308 mg/dL 70-110 H : TESTED AT [address], [address]: Circuit Board Repair Technician/Six Color Press Operator ID = [id number] for LUIS ALEXANDER SIROLIMUS [id number] 11:49:00* Test Item Value Reference Range Interpretation Comments SIROLIMUS LEVEL BLOOD (BEAKER) (test code = 806) 4.5 ng/mL 5.0-1 5.0 L Circuit Board Repair Technician ID - CHRISTINE MPOCT-GLUCOSE [id number] 11:28:00* Test Item Value Reference Range Interpretation Comments POC-GLUCOSE METER (BEAKER) (test code = 1538) 297 mg/dL 70-110 H : TESTED AT [address], [address]: Circuit Board Repair Technician/Six Color Press Operator ID = [id number] for LUIS ALEXANDER BASIC METABOLIC [id number] 05:33:00* Test Item Value Reference Range Interpretation Comments SODIUM (BEAKER) (test code = 381) 140 meq/L 136-145 POTASSIUM (BEAKER) (test code = 379) 4.0 meq/L 3.5-5.1 Specimen slightly hemolyzed CHLORIDE (BEAKER) (test code = 382) 104 meq/L 98-107 CO2 (BEAKER) (test code = 355) 27 meq/L 22-29 BLOOD UREA NITROGEN (BEAKER) (test code = 354) 21 mg/dL 7-21 CREATININE (BEAKER) (test code = 358) 1.03 mg/dL 0.57-1.25 Specimen slightly hemolyzed GLUCOSE RANDOM (BEAKER) (test code = 652) 292 mg/dL 70-105 H CALCIUM (BEAKER) (test code = 697) 9.0 mg/dL 8.4-10.2 EGFR (BEAKER) (test code = 1092) 70 mL/min/1.73 sq m ESTIMATED GFR IS NOT ACCURATE CREATININE CLEARANCE IN PREDICTING GLOMERULAR FILTRATION RATE. ESTIMATED GFR IS NOT APPLICABLE FOR DIALYSIS PATIENTS. Circuit Board Repair Technician ID - EDASICBC W/PLT COUNT & AUTO [id number] 05:17:00* Test Item Value Reference Range Interpretation Comments WHITE BLOOD CELL COUNT (BEAKER) (test code = 775) 8.7 K/ L 3.5- 10.5 RED BLOOD CELL COUNT (BEAKER) (test code = 761) 4.32 M/ L 4.63-6 .08 L HEMOGLOBIN (BEAKER) (test code = 410) 11.1 GM/DL 13.7-17.5 L HEMATOCRIT (BEAKER) (test code = 411) 35.4 % 40.1-51.0 L MEAN CORPUSCULAR VOLUME (BEAKER) (test code = 753) 81.9 fL 79. 0-92.2 MEAN CORPUSCULAR HEMOGLOBIN (BEAKER) (test code = 751) 25.7 pg 25.7-32.2 MEAN CORPUSCULAR HEMOGLOBIN CONC (BEAKER) (test code = 752) 31.4 GM/DL 32.3-36.5 L RED CELL DISTRIBUTION WIDTH (BEAKER) (test code = 412) 16.4 % 11.6-14.4 H PLATELET COUNT (BEAKER) (test code = 756) 281 K/CU MM 150-450 MEAN PLATELET VOLUME (BEAKER) (test code = 754) 9.7 fL 9.4-12 .4 NUCLEATED RED BLOOD CELLS (BEAKER) (test code = 413) 0 /100 WBC 0 -0 NEUTROPHILS RELATIVE PERCENT (BEAKER) (test code = 429) 76 % LYMPHOCYTES RELATIVE PERCENT (BEAKER) (test code = 430) 10 % MONOCYTES RELATIVE PERCENT (BEAKER) (test code = 431) 12 % EOSINOPHILS RELATIVE PERCENT (BEAKER) (test code = 432) 1 % BASOPHILS RELATIVE PERCENT (BEAKER) (test code = 437) 0 % NEUTROPHILS ABSOLUTE COUNT (BEAKER) (test code = 670) 6.62 K/ L 1.78-5.38 H LYMPHOCYTES ABSOLUTE COUNT (BEAKER) (test code = 414) 0.86 K/ L 1.32-3.57 L MONOCYTES ABSOLUTE COUNT (BEAKER) (test code = 415) 1.03 K/ L 0. 30-0.82 H EOSINOPHILS ABSOLUTE COUNT (BEAKER) (test code = 416) 0.12 K/ L 0.04-0.54 BASOPHILS ABSOLUTE COUNT (BEAKER) (test code = 417) 0.02 K/ L 0. 01-0.08 IMMATURE GRANULOCYTES-RELATIVE PERCENT (BEAKER) (test code = 2801) 1 % 0-1 POCT-GLUCOSE [id number] 22:14:00* Test Item Value Reference Range Interpretation Comments POC-GLUCOSE METER (BEAKER) (test code = 1538) 303 mg/dL 70-110 H : TESTED AT [address], [address]: Circuit Board Repair Technician/Six Color Press Operator ID = [id number] for DIMPLE CHAIDEZ POCT-GLUCOSE [id number] 18:05:00* Test Item Value Reference Range Interpretation Comments POC-GLUCOSE METER (BEAKER) (test code = 1538) 274 mg/dL 70-110 H : TESTED AT [address], [address]: Circuit Board Repair Technician/Six Color Press Operator ID = [id number] for AKINSONU, KINSEY POCT-GLUCOSE [id number] 11:52:00* Test Item Value Reference Range Interpretation Comments POC-GLUCOSE METER (BEAKER) (test code = 1538) 229 mg/dL 70-110 H : TESTED AT [address], [address]: Circuit Board Repair Technician/Six Color Press Operator ID = [id number] for AKINSONU, KINSEY POCT-GLUCOSE [id number] 09:14:00* Test Item Value Reference Range Interpretation Comments POC-GLUCOSE METER (BEAKER) (test code = 1538) 227 mg/dL 70-110 H : TESTED AT [facility] [address] [facility], [address]: Circuit Board Repair Technician/Six Color Press Operator ID = [id number] for KINSEY BROWNING POCT-GLUCOSE [id number] 09:04:00* Test Item Value Reference Range Interpretation Comments POC-GLUCOSE METER (BEAKER) (test code = 1538) 278 mg/dL 70-110 H : TESTED AT [place] [address] [facility], [address]: Circuit Board Repair Technician/Six Color Press Operator ID = [id number] for NATALI WIGGINS POCT-GLUCOSE [id number] 09:04:00* Test Item Value Reference Range Interpretation Comments POC-GLUCOSE METER (BEAKER) (test code = 1538) 283 mg/dL 70-110 H : TESTED AT [address], [address]: Circuit Board Repair Technician/Six Color Press Operator ID = [id number] for HUMBERTO ESPARZA BASIC METABOLIC [id number] 06:38:00* Test Item Value Reference Range Interpretation Comments SODIUM (BEAKER) (test code = 381) 135 meq/L 136-145 L POTASSIUM (BEAKER) (test code = 379) 4.0 meq/L 3.5-5.1 CHLORIDE (BEAKER) (test code = 382) 101 meq/L 98-107 CO2 (BEAKER) (test code = 355) 27 meq/L 22-29 BLOOD UREA NITROGEN (BEAKER) (test code = 354) 19 mg/dL 7-21 CREATININE (BEAKER) (test code = 358) 1.07 mg/dL 0.57-1.25 GLUCOSE RANDOM (BEAKER) (test code = 652) 345 mg/dL 70-105 H CALCIUM (BEAKER) (test code = 697) 8.7 mg/dL 8.4-10.2 EGFR (BEAKER) (test code = 1092) 67 mL/min/1.73 sq m ESTIMATED GFR IS NOT ACCURATE CREATININE CLEARANCE IN PREDICTING GLOMERULAR FILTRATION RATE. ESTIMATED GFR IS NOT APPLICABLE FOR DIALYSIS PATIENTS. Circuit Board Repair Technician ID - DBCBC W/PLT COUNT & AUTO [id number] 06:12:00* Test Item Value Reference Range Interpretation Comments WHITE BLOOD CELL COUNT (BEAKER) (test code = 775) 7.7 K/ L 3.5- 10.5 RED BLOOD CELL COUNT (BEAKER) (test code = 761) 4.02 M/ L 4.63-6 .08 L HEMOGLOBIN (BEAKER) (test code = 410) 10.2 GM/DL 13.7-17.5 L HEMATOCRIT (BEAKER) (test code = 411) 33.3 % 40.1-51.0 L MEAN CORPUSCULAR VOLUME (BEAKER) (test code = 753) 82.8 fL 79. 0-92.2 MEAN CORPUSCULAR HEMOGLOBIN (BEAKER) (test code = 751) 25.4 pg 25.7-32.2 L MEAN CORPUSCULAR HEMOGLOBIN CONC (BEAKER) (test code = 752) 30.6 GM/DL 32.3-36.5 L RED CELL DISTRIBUTION WIDTH (BEAKER) (test code = 412) 16.2 % 11.6-14.4 H PLATELET COUNT (BEAKER) (test code = 756) 274 K/CU MM 150-450 MEAN PLATELET VOLUME (BEAKER) (test code = 754) 10.0 fL 9.4-12 .4 NUCLEATED RED BLOOD CELLS (BEAKER) (test code = 413) 0 /100 WBC 0 -0 NEUTROPHILS RELATIVE PERCENT (BEAKER) (test code = 429) 75 % LYMPHOCYTES RELATIVE PERCENT (BEAKER) (test code = 430) 11 % MONOCYTES RELATIVE PERCENT (BEAKER) (test code = 431) 11 % EOSINOPHILS RELATIVE PERCENT (BEAKER) (test code = 432) 2 % BASOPHILS RELATIVE PERCENT (BEAKER) (test code = 437) 0 % NEUTROPHILS ABSOLUTE COUNT (BEAKER) (test code = 670) 5.83 K/ L 1.78-5.38 H LYMPHOCYTES ABSOLUTE COUNT (BEAKER) (test code = 414) 0.88 K/ L 1.32-3.57 L MONOCYTES ABSOLUTE COUNT (BEAKER) (test code = 415) 0.87 K/ L 0. 30-0.82 H EOSINOPHILS ABSOLUTE COUNT (BEAKER) (test code = 416) 0.12 K/ L 0.04-0.54 BASOPHILS ABSOLUTE COUNT (BEAKER) (test code = 417) 0.01 K/ L 0. 01-0.08 IMMATURE GRANULOCYTES-RELATIVE PERCENT (BEAKER) (test code = 2801) 0 % 0-1 POCT-GLUCOSE [id number] 21:57:00* Test Item Value Reference Range Interpretation Comments POC-GLUCOSE METER (BEAKER) (test code = 1538) 252 mg/dL 70-110 H : TESTED AT [address], [address]: Circuit Board Repair Technician/Six Color Press Operator ID = [id number] for HERO HUERTA POCT-GLUCOSE [id number] 18:03:00* Test Item Value Reference Range Interpretation Comments POC-GLUCOSE METER (BEAKER) (test code = 1538) 269 mg/dL 70-110 H : Notified RN/MD: TESTED AT [address], [address]: Circuit Board Repair Technician/Six Color Press Operator ID = [id number] for EBONY ELISE POCT-GLUCOSE [id number] 14:57:00* Test Item Value Reference Range Interpretation Comments POC-GLUCOSE METER (BEAKER) (test code = 1538) 191 mg/dL 70-110 H : Notified RN/MD: TESTED AT [address], [address]: Circuit Board Repair Technician/Six Color Press Operator ID = [id number] for EBONY ELISE POCT-GLUCOSE [id number] 11:47:00* Test Item Value Reference Range Interpretation Comments POC-GLUCOSE METER (BEAKER) (test code = 1538) 220 mg/dL 70-110 H : TESTED AT [address], [address]: Circuit Board Repair Technician/Six Color Press Operator ID = [id number] for HECTOR RODRIGUEZ BASIC METABOLIC [id number] 07:53:00* Test Item Value Reference Range Interpretation Comments SODIUM (BEAKER) (test code = 381) 138 meq/L 136-145 POTASSIUM (BEAKER) (test code = 379) 4.2 meq/L 3.5-5.1 CHLORIDE (BEAKER) (test code = 382) 103 meq/L 98-107 CO2 (BEAKER) (test code = 355) 25 meq/L 22-29 BLOOD UREA NITROGEN (BEAKER) (test code = 354) 16 mg/dL 7-21 CREATININE (BEAKER) (test code = 358) 0.99 mg/dL 0.57-1.25 GLUCOSE RANDOM (BEAKER) (test code = 652) 296 mg/dL 70-105 H CALCIUM (BEAKER) (test code = 697) 9.1 mg/dL 8.4-10.2 EGFR (BEAKER) (test code = 1092) 73 mL/min/1.73 sq m ESTIMATED GFR IS NOT ACCURATE CREATININE CLEARANCE IN PREDICTING GLOMERULAR FILTRATION RATE. ESTIMATED GFR IS NOT APPLICABLE FOR DIALYSIS PATIENTS. Circuit Board Repair Technician ID - NTPCBC W/PLT COUNT & AUTO [id number] 06:33:00* Test Item Value Reference Range Interpretation Comments WHITE BLOOD CELL COUNT (BEAKER) (test code = 775) 9.3 K/ L 3.5- 10.5 RED BLOOD CELL COUNT (BEAKER) (test code = 761) 4.39 M/ L 4.63-6 .08 L HEMOGLOBIN (BEAKER) (test code = 410) 11.1 GM/DL 13.7-17.5 L HEMATOCRIT (BEAKER) (test code = 411) 36.0 % 40.1-51.0 L MEAN CORPUSCULAR VOLUME (BEAKER) (test code = 753) 82.0 fL 79. 0-92.2 MEAN CORPUSCULAR HEMOGLOBIN (BEAKER) (test code = 751) 25.3 pg 25.7-32.2 L MEAN CORPUSCULAR HEMOGLOBIN CONC (BEAKER) (test code = 752) 30.8 GM/DL 32.3-36.5 L RED CELL DISTRIBUTION WIDTH (BEAKER) (test code = 412) 16.3 % 11.6-14.4 H PLATELET COUNT (BEAKER) (test code = 756) 295 K/CU MM 150-450 MEAN PLATELET VOLUME (BEAKER) (test code = 754) 9.1 fL 9.4-12 .4 L NUCLEATED RED BLOOD CELLS (BEAKER) (test code = 413) 0 /100 WBC 0 -0 NEUTROPHILS RELATIVE PERCENT (BEAKER) (test code = 429) 79 % LYMPHOCYTES RELATIVE PERCENT (BEAKER) (test code = 430) 9 % MONOCYTES RELATIVE PERCENT (BEAKER) (test code = 431) 10 % EOSINOPHILS RELATIVE PERCENT (BEAKER) (test code = 432) 2 % BASOPHILS RELATIVE PERCENT (BEAKER) (test code = 437) 0 % NEUTROPHILS ABSOLUTE COUNT (BEAKER) (test code = 670) 7.34 K/ L 1.78-5.38 H LYMPHOCYTES ABSOLUTE COUNT (BEAKER) (test code = 414) 0.86 K/ L 1.32-3.57 L MONOCYTES ABSOLUTE COUNT (BEAKER) (test code = 415) 0.90 K/ L 0. 30-0.82 H EOSINOPHILS ABSOLUTE COUNT (BEAKER) (test code = 416) 0.17 K/ L 0.04-0.54 BASOPHILS ABSOLUTE COUNT (BEAKER) (test code = 417) 0.01 K/ L 0. 01-0.08 IMMATURE GRANULOCYTES-RELATIVE PERCENT (BEAKER) (test code = 2801) 0 % 0-1 POCT-GLUCOSE [id number] 05:35:00* Test Item Value Reference Range Interpretation Comments POC-GLUCOSE METER (BEAKER) (test code = 1538) 231 mg/dL 70-110 H : TESTED AT [address], [address]: [employer] Rep[employer] Technician/[employer] Press Operator ID = [id number] for NATALI WIGGINS POCT-GLUCOSE [id number] 05:29:00* Test Item Value Reference Range Interpretation Comments POC-GLUCOSE METER (BEAKER) (test code = 1538) 186 mg/dL 70-110 H : TESTED AT [address], [address]: [employer] Board Repair Technician/[employer] Press Operator ID = [id number] for NATALI WIGGINS POCT-GLUCOSE [id number] 04:50:00* Test Item Value Reference Range Interpretation Comments POC-GLUCOSE METER (BEAKER) (test code = 1538) 294 mg/dL 70-110 H : TESTED AT [address], [address]: [employer] Board Repair Technician/[employer] Color Press Operator ID = [id number] for HERO HUERTA SARS-CoV2/RT-PCR (Asymptomatic ONLY)2020-02-23 08:04:00* Test Item Value Reference Range Interpretation Comments SARS-COV2/RT-PCR (test code = 34954-9) Negative N ot Detected, Negative, See external report for linked test SARS-COV-2 PERFORMING LAB (test code = 43120-7) [facility] [employer] (test code = NARCISA) Negative result for this rodrick t determines that SARS-CoV-2 RNA was not present in the specimen above the Limit of Detection (LOD). However, Negative results do not preclude SARS-CoV-2 infection and should not be used as the sole basis for treatment or patient management decisions. Negative results must be combined with clinical observations, patient history, and epidemiological information. A false negative result may occur if a specimen is improperly collected, transported or handled. A false negative result should be considered if patient's recent exposures or clinical presentation indicate that COVID-19 (SARS-CoV-2) is likely and diagnostic tests for other causes of illness are negative. Re-testing should be considered in cases of suspected false negatives. The limit of detection for this assay is 800 copies/mL. This SARS CoV-2 test is a real-time RT-PCR test intended for the qualitative detection of nucleic acid from SARS-CoV-2 in a nasopharyngeal swab specimen collected from individuals suspected of COVID-19 by their healthcare provider. This test has not been Food and Drug Administration (FDA) cleared or approved. This is a modified version of an approved Emergency Use Authorization (EUA) and is in the process of review by the FDA. Once authorized by the FDA, the issued EUA will be effective until the declaration that circumstances exist justifying the authorization of the emergency use of in vitro diagnostic tests for detection and/or diagnosis of COVID-19 is terminated under Section 564(b)(2) of the Act or the EUA is revoked under Section 564(g) of the Act. Fact Sheet for Healthcare Providers:https://www.[employer]/sites/default/files/product/documents/Fact_Shee i_IX_Nnldcldel_Onon_FTPE-XsO-5.pdf Fact Sheet for Healthcare Patients:https://www.[employer]/sites/default/files/pro duct/documents/Rnku_Sanye_Qwrbljsp_Jxnl_XLSQ-SeP-9.pdf Performing Laboratory:[facility] [place] [address] [facility])2020-02-23 08:04:00* Test Item Value Reference Range Interpretation Comments SARS-COV2/RT-PCR (test code = 8119451) Negative N ot Detected, Negative, See external report for linked test SARS-COV-2 PERFORMING LAB (test code = 2381686) [facility] Negative result for this test determines that SARS-CoV-2 RNA was not present in the specimen above the Limit of Detection (LOD). However, Negative results do n ot preclude SARS-CoV-2 infection and should not be used as the sole basis for tr eatment or patient management decisions. Negative results must be combined with clinical observations, patient history, and epidemiological information. A false negative result may occur if a specimen is improperly collected, transported or handled. A false negative result should be considered if patient's recent expo sures or clinical presentation indicate that COVID-19 (SARS-CoV-2) is likely and diagnostic tests for other causes of illness are negative. Re-testing should be considered in cases of suspected false negatives.The limit of detection for this assay is 800 copies/mL.This SARS CoV-2 test is a real-time RT-PCR test intended for the qualitative detection of nucleic acid from SARS-CoV-2 in a nasopharyn geal swab specimen collected from individuals suspected of COVID-19 by their [facility] provider.This test has not been Food and Drug Administration (FDA) clear ed or approved. This is a modified version of an approved Emergency Use Authori zation (EUA) and is in the process of review by the FDA. Once authorized by [facility], the issued EUA will be effective until the declaration that circumstances exist justifying the authorization of the emergency use of in vitro diagnostic tests for detection and/or diagnosis of COVID-19 is terminated under Section 564 (b)(2) of the Act or the EUA is revoked under Section 564(g) of the Act.Fact She et for Healthcare Providers:https://www.[employer].com/sites/default/files/product/d ocuments/Nmzb_Bjxaa_TA_Kqyeajvyr_Iybb_WTDV-BrS-7.pdfFact Sheet for Healthcare Pa jan:https://www.[employer].com/sites/default/files/product/documents/Fact_Sheet_P slfurpj_Gvpa_UJQH-DmR-0.pdfPerforming Laboratory:[facility], [place] [address] MET[employer]OLIC [id number] 06:43:00* Test Item Value Reference Range Interpretation Comments SODIUM (BEAKER) (test code = 381) 138 meq/L 136-145 POTASSIUM (BEAKER) (test code = 379) 4.2 meq/L 3.5-5.1 Specimen slightly hemolyzed CHLORIDE (BEAKER) (test code = 382) 104 meq/L 98-107 CO2 (BEAKER) (test code = 355) 24 meq/L 22-29 BLOOD UREA NITROGEN (BEAKER) (test code = 354) 14 mg/dL 7-21 CREATININE (BEAKER) (test code = 358) 0.98 mg/dL 0.57-1.25 Specimen slightly hemolyzed GLUCOSE RANDOM (BEAKER) (test code = 652) 329 mg/dL 70-105 H CALCIUM (BEAKER) (test code = 697) 8.6 mg/dL 8.4-10.2 EGFR (BEAKER) (test code = 1092) 74 mL/min/1.73 sq m ESTIMATED GFR IS NOT ACCURATE CREATININE CLEARANCE IN PREDICTING GLOMERULAR FILTRATION RATE. ESTIMATED GFR IS NOT APPLICABLE FOR DIALYSIS PATIENTS. Circuit Board Repair Technician ID - ADELAIDA MCBC W/PLT COUNT & AUTO [id number] 06:16:00* Test Item Value Reference Range Interpretation Comments WHITE BLOOD CELL COUNT (BEAKER) (test code = 775) 7.8 K/ L 3.5- 10.5 RED BLOOD CELL COUNT (BEAKER) (test code = 761) 4.12 M/ L 4.63-6 .08 L HEMOGLOBIN (BEAKER) (test code = 410) 10.4 GM/DL 13.7-17.5 L HEMATOCRIT (BEAKER) (test code = 411) 34.3 % 40.1-51.0 L MEAN CORPUSCULAR VOLUME (BEAKER) (test code = 753) 83.3 fL 79. 0-92.2 MEAN CORPUSCULAR HEMOGLOBIN (BEAKER) (test code = 751) 25.2 pg 25.7-32.2 L MEAN CORPUSCULAR HEMOGLOBIN CONC (BEAKER) (test code = 752) 30.3 GM/DL 32.3-36.5 L RED CELL DISTRIBUTION WIDTH (BEAKER) (test code = 412) 16.4 % 11.6-14.4 H PLATELET COUNT (BEAKER) (test code = 756) 279 K/CU MM 150-450 MEAN PLATELET VOLUME (BEAKER) (test code = 754) 9.1 fL 9.4-12 .4 L NUCLEATED RED BLOOD CELLS (BEAKER) (test code = 413) 0 /100 WBC 0 -0 NEUTROPHILS RELATIVE PERCENT (BEAKER) (test code = 429) 79 % LYMPHOCYTES RELATIVE PERCENT (BEAKER) (test code = 430) 8 % MONOCYTES RELATIVE PERCENT (BEAKER) (test code = 431) 11 % EOSINOPHILS RELATIVE PERCENT (BEAKER) (test code = 432) 2 % BASOPHILS RELATIVE PERCENT (BEAKER) (test code = 437) 0 % NEUTROPHILS ABSOLUTE COUNT (BEAKER) (test code = 670) 6.13 K/ L 1.78-5.38 H LYMPHOCYTES ABSOLUTE COUNT (BEAKER) (test code = 414) 0.59 K/ L 1.32-3.57 L MONOCYTES ABSOLUTE COUNT (BEAKER) (test code = 415) 0.86 K/ L 0. 30-0.82 H EOSINOPHILS ABSOLUTE COUNT (BEAKER) (test code = 416) 0.14 K/ L 0.04-0.54 BASOPHILS ABSOLUTE COUNT (BEAKER) (test code = 417) 0.01 K/ L 0. 01-0.08 IMMATURE GRANULOCYTES-RELATIVE PERCENT (BEAKER) (test code = 2801) 1 % 0-1 POCT-GLUCOSE [id number] 01:17:00* Test Item Value Reference Range Interpretation Comments POC-GLUCOSE METER (BEAKER) (test code = 1538) 348 mg/dL 70-110 H : TESTED AT [address], [address]: Circuit Board Repair Technician/Six Color Press Operator ID = [id number] for Juan Alberto Carvajal POCT-GLUCOSE [id number] 13:18:00* Test Item Value Reference Range Interpretation Comments POC-GLUCOSE METER (BEAKER) (test code = 1538) 134 mg/dL 70-110 H : TESTED AT [address], [address]: Circuit Board Repair Technician/Six Color Press Operator ID = [id number] for ONELIA SUAZO POCT-GLUCOSE [id number] 08:56:00* Test Item Value Reference Range Interpretation Comments POC-GLUCOSE METER (BEAKER) (test code = 1538) 152 mg/dL 70-110 H : TESTED AT [address], [address]: Circuit Board Repair Technician/Six Color Press Operator ID = [id number] for HUMBERTO ESPARZA CBC W/PLT COUNT & AUTO [id number] 06:38:00* Test Item Value Reference Range Interpretation Comments WHITE BLOOD CELL COUNT (BEAKER) (test code = 775) 6.5 K/ L 3.5- 10.5 RED BLOOD CELL COUNT (BEAKER) (test code = 761) 3.97 M/ L 4.63-6 .08 L HEMOGLOBIN (BEAKER) (test code = 410) 9.9 GM/DL 13.7-17.5 L HEMATOCRIT (BEAKER) (test code = 411) 32.2 % 40.1-51.0 L MEAN CORPUSCULAR VOLUME (BEAKER) (test code = 753) 81.1 fL 79. 0-92.2 MEAN CORPUSCULAR HEMOGLOBIN (BEAKER) (test code = 751) 24.9 pg 25.7-32.2 L MEAN CORPUSCULAR HEMOGLOBIN CONC (BEAKER) (test code = 752) 30.7 GM/DL 32.3-36.5 L RED CELL DISTRIBUTION WIDTH (BEAKER) (test code = 412) 16.6 % 11.6-14.4 H PLATELET COUNT (BEAKER) (test code = 756) 242 K/CU MM 150-450 MEAN PLATELET VOLUME (BEAKER) (test code = 754) 8.9 fL 9.4-12 .4 L NUCLEATED RED BLOOD CELLS (BEAKER) (test code = 413) 0 /100 WBC 0 -0 NEUTROPHILS RELATIVE PERCENT (BEAKER) (test code = 429) 75 % LYMPHOCYTES RELATIVE PERCENT (BEAKER) (test code = 430) 10 % MONOCYTES RELATIVE PERCENT (BEAKER) (test code = 431) 13 % EOSINOPHILS RELATIVE PERCENT (BEAKER) (test code = 432) 2 % BASOPHILS RELATIVE PERCENT (BEAKER) (test code = 437) 0 % NEUTROPHILS ABSOLUTE COUNT (BEAKER) (test code = 670) 4.86 K/ L 1.78-5.38 LYMPHOCYTES ABSOLUTE COUNT (BEAKER) (test code = 414) 0.68 K/ L 1.32-3.57 L MONOCYTES ABSOLUTE COUNT (BEAKER) (test code = 415) 0.82 K/ L 0. 30-0.82 EOSINOPHILS ABSOLUTE COUNT (BEAKER) (test code = 416) 0.10 K/ L 0.04-0.54 BASOPHILS ABSOLUTE COUNT (BEAKER) (test code = 417) 0.02 K/ L 0. 01-0.08 IMMATURE GRANULOCYTES-RELATIVE PERCENT (BEAKER) (test code = 2801) 1 % 0-1 BASIC METABOLIC [id number] 05:42:00* Test Item Value Reference Range Interpretation Comments SODIUM (BEAKER) (test code = 381) 137 meq/L 136-145 POTASSIUM (BEAKER) (test code = 379) 3.6 meq/L 3.5-5.1 CHLORIDE (BEAKER) (test code = 382) 103 meq/L 98-107 CO2 (BEAKER) (test code = 355) 27 meq/L 22-29 BLOOD UREA NITROGEN (BEAKER) (test code = 354) 16 mg/dL 7-21 CREATININE (BEAKER) (test code = 358) 0.89 mg/dL 0.57-1.25 GLUCOSE RANDOM (BEAKER) (test code = 652) 145 mg/dL 70-105 H CALCIUM (BEAKER) (test code = 697) 8.1 mg/dL 8.4-10.2 L EGFR (BEAKER) (test code = 1092) 82 mL/min/1.73 sq m ESTIMATED GFR IS NOT ACCURATE CREATININE CLEARANCE IN PREDICTING GLOMERULAR FILTRATION RATE. ESTIMATED GFR IS NOT APPLICABLE FOR DIALYSIS PATIENTS. Circuit Board Repair Technician ID - ADELAIDA MPOCT-GLUCOSE [id number] 21:22:00* Test Item Value Reference Range Interpretation Comments POC-GLUCOSE METER (BEAKER) (test code = 1538) 225 mg/dL 70-110 H : Notified RN/MD: TESTED AT [address], [address]: Circuit Board Repair Technician/Six Color Press Operator ID = [id number] for ALEKSQUINCY 2D Echo W/Doppler(CW/PW/Color)2020-02-21 18:33:03Ejection FractionSLEH ECHO HEARTLAB MKCKESSON CPACSInterface, External Ris In - 02/21/2020 6:33 PM CDTTransthoracic Echocardiography Report (TTE) Demographics Patient Name LISA GLASER Date of Study 02/21/2020 CRYSTAL Gender Male Visit Number [id number] Race Unknown Room Number 2251 Number Date of 1940 Referring Alexx Hawkins [facility] Physician Age 79 year(s) [employer] Naoufel Brahmi, NB, RDCS,RVT,RDMS Rv Repairer Patrick Douglas Interpreting Earl Douglas MD Physician Procedure Type of Study TTE procedure:2DECHO W DOPPLER(CW/PW/COLOR) (Routine) Indications:Pericardial effusion and Atrial fibrillation.Clinical HistoryPADESRDHypertensionSt rokeHyperlipidemiaHeight: 66 inches Weight: 74.39 kg (164 lbs) BSA: 1.84 m^2 BMI : 26.47 kg/m^2HR: 91 bpm BP: 166/89 mmHg Summary A trivial to small posterior, b ehind right atrium pericardial effusion is present . Signature Findings Technical Quality: Tech nically adequate exam. Pericardium A trivial to small posterior, behind right a trium pericardial effusion is present . [facility] [id number] 17:43:00* Test Item Value Reference Range Interpretation Comments POC-GLUCOSE METER (BEAKER) (test code = 1538) 269 mg/dL 70-110 H : TESTED AT [facility] [address] [facility], [address]: Circuit Board Repair Technician/Six Color Press Operator ID = [id number] for ESPARZA, JAXECA POCT-GLUCOSE [id number] 16:46:00* Test Item Value Reference Range Interpretation Comments POC-GLUCOSE METER (BEAKER) (test code = 1538) 176 mg/dL 70-110 H : TESTED AT [facility] [address] [facility], [address]: Circuit Board Repair Technician/Six Color Press Operator ID = [id number] for ESPARZA, JAMECA SIROLIMUS [id number] 09:54:00* Test Item Value Reference Range Interpretation Comments SIROLIMUS LEVEL BLOOD (BEAKER) (test code = 806) 5.5 ng/mL 5.0-1 5.0 Circuit Board Repair Technician ID - CHRISTINE MCYCLOSPORINE [id number] 09:50:00* Test Item Value Reference Range Interpretation Comments CYCLOSPORINE BLOOD (NOBLE) (test code = 672) 34 ng/mL <400 Circuit Board Repair Technician ID - CHRISTINE MCT, CHEST, WITHOUT [id number] 08:56:00Unlisted Reason for Exam - Click Yes and Enter Reason Below->NoAnesthesia:->NoneFINAL REPORT CT Chest without contrast History: Dyspnea C omparison: none Technique: serial axial imaging was performed without intravenou s contrast as per departmental protocol. Multiplanar images are reconstructed a nd reviewed when indicated. This CT examination is performed using one or more of the following dose reduction techniques: Automated exposure control, adjustm ent of the mA and /or kV according to patient size, and/or use of iterative isaac nstruction technique. Findings:Calcified mediastinal and bilateral hilar lymph nodes are consistent with previous granulomatous disease. No definite hilar en largement. The heart is normal in size. There is a moderate pericardial effusi on. No thoracic aortic aneurysm. Moderate underlying atherosclerotic disease. Normal caliber of main pulmonary trunk. Patent central airways. Moderate-size d bilateral pleural effusions. No pneumothorax is appreciated. Bilateral lower lobe compressive atelectasis is noted. Mild bilateral upper lobe and right middl e lobe groundglass densities are also seen. No significant findings in the par tially imaged abdomen. No aggressive osseous lesion. Impression: 1. Moderate b ilateral pleural and pericardial effusions.2. Mild bilateral upper lobe and righ t middle lobe groundglass densities could represent superimposed pulmonary edema or infection. Signed: Meet Figueredo MDReport Verified Date/Time: 02/21/2020 08:56:30 Reading Location: [facility] Diagnostic Imaging Reading Room - [place] [address] chest without IV [id number] 08:56:00Interface, External Ris In - 02/21/2020 8:[address] Chest without contrast History: Dyspnea [...] size, and/or use of iterative reconstruction technique. Findings:Calcified mediastinal and bilateral hilar lymph nodes are [...] lesion. Impression: 1. Moderate bilateral pleural and pericar dial effusions.2. Mild bilateral upper lobe and right middle lobe groundglass de nsities could represent superimposed pulmonary edema or infection. Signed: Meet [facility] Verified Date/Time: 02/21/2020 08:56:30 Reading Location: [facility] Diagnostic Imaging Reading Room - [place] [address] [facility] [id number] 08:31:00* Test Item Value Reference Range Interpretation Comments POC-GLUCOSE METER (BEAKER) (test code = 1538) 95 mg/dL 70-110 : TESTED AT [address], [address]: Circuit Board Repair Technician/Six Color Press Operator ID = [id number] for HUMBERTO ESPARZA BASIC METABOLIC [id number] 06:06:00* Test Item Value Reference Range Interpretation Comments SODIUM (BEAKER) (test code = 381) 141 meq/L 136-145 POTASSIUM (BEAKER) (test code = 379) 3.5 meq/L 3.5-5.1 CHLORIDE (BEAKER) (test code = 382) 107 meq/L 98-107 CO2 (BEAKER) (test code = 355) 26 meq/L 22-29 BLOOD UREA NITROGEN (BEAKER) (test code = 354) 21 mg/dL 7-21 CREATININE (BEAKER) (test code = 358) 0.88 mg/dL 0.57-1.25 GLUCOSE RANDOM (BEAKER) (test code = 652) 109 mg/dL 70-105 H CALCIUM (BEAKER) (test code = 697) 8.4 mg/dL 8.4-10.2 EGFR (BEAKER) (test code = 1092) 84 mL/min/1.73 sq m ESTIMATED GFR IS NOT ACCURATE CREATININE CLEARANCE IN PREDICTING GLOMERULAR FILTRATION RATE. ESTIMATED GFR IS NOT APPLICABLE FOR DIALYSIS PATIENTS. Circuit Board Repair Technician ID - EDASICBC W/PLT COUNT & AUTO [id number] 05:43:00* Test Item Value Reference Range Interpretation Comments WHITE BLOOD CELL COUNT (BEAKER) (test code = 775) 6.4 K/ L 3.5- 10.5 RED BLOOD CELL COUNT (BEAKER) (test code = 761) 3.81 M/ L 4.63-6 .08 L HEMOGLOBIN (BEAKER) (test code = 410) 9.6 GM/DL 13.7-17.5 L HEMATOCRIT (BEAKER) (test code = 411) 31.2 % 40.1-51.0 L MEAN CORPUSCULAR VOLUME (BEAKER) (test code = 753) 81.9 fL 79. 0-92.2 MEAN CORPUSCULAR HEMOGLOBIN (BEAKER) (test code = 751) 25.2 pg 25.7-32.2 L MEAN CORPUSCULAR HEMOGLOBIN CONC (BEAKER) (test code = 752) 30.8 GM/DL 32.3-36.5 L RED CELL DISTRIBUTION WIDTH (BEAKER) (test code = 412) 16.5 % 11.6-14.4 H PLATELET COUNT (BEAKER) (test code = 756) 239 K/CU MM 150-450 MEAN PLATELET VOLUME (BEAKER) (test code = 754) 9.1 fL 9.4-12 .4 L NUCLEATED RED BLOOD CELLS (BEAKER) (test code = 413) 0 /100 WBC 0 -0 NEUTROPHILS RELATIVE PERCENT (BEAKER) (test code = 429) 75 % LYMPHOCYTES RELATIVE PERCENT (BEAKER) (test code = 430) 10 % MONOCYTES RELATIVE PERCENT (BEAKER) (test code = 431) 13 % EOSINOPHILS RELATIVE PERCENT (BEAKER) (test code = 432) 2 % BASOPHILS RELATIVE PERCENT (BEAKER) (test code = 437) 0 % NEUTROPHILS ABSOLUTE COUNT (BEAKER) (test code = 670) 4.76 K/ L 1.78-5.38 LYMPHOCYTES ABSOLUTE COUNT (BEAKER) (test code = 414) 0.65 K/ L 1.32-3.57 L MONOCYTES ABSOLUTE COUNT (BEAKER) (test code = 415) 0.81 K/ L 0. 30-0.82 EOSINOPHILS ABSOLUTE COUNT (BEAKER) (test code = 416) 0.11 K/ L 0.04-0.54 BASOPHILS ABSOLUTE COUNT (BEAKER) (test code = 417) 0.02 K/ L 0. 01-0.08 IMMATURE GRANULOCYTES-RELATIVE PERCENT (BEAKER) (test code = 2801) 0 % 0-1 POCT-GLUCOSE [id number] 21:22:00* Test Item Value Reference Range Interpretation Comments POC-GLUCOSE METER (BEAKER) (test code = 1538) 187 mg/dL 70-110 H : TESTED AT [address], [address]: Circuit Board Repair Technician/Six Color Press Operator ID = [id number] for DIMPLE CHAIDEZ POCT-GLUCOSE [id number] 18:19:00* Test Item Value Reference Range Interpretation Comments POC-GLUCOSE METER (BEAKER) (test code = 1538) 205 mg/dL 70-110 H : TESTED AT [address], [address]: Circuit Board Repair Technician/Six Color Press Operator ID = [id number] for STEPHANIE ALEXANDER POCT-GLUCOSE [id number] 12:21:00* Test Item Value Reference Range Interpretation Comments POC-GLUCOSE METER (BEAKER) (test code = 1538) 210 mg/dL 70-110 H : TESTED AT [address], [address]: Circuit Board Repair Technician/Six Color Press Operator ID = [id number] for Maddox Fadia POCT-GLUCOSE [id number] 08:41:00* Test Item Value Reference Range Interpretation Comments POC-GLUCOSE METER (BEAKER) (test code = 1538) 136 mg/dL 70-110 H : TESTED AT [address], [address]: Circuit Board Repair Technician/Six Color Press Operator ID = [id number] for STEPHANIE ALEXANDER CBC W/PLT COUNT & AUTO [id number] 05:55:00* Test Item Value Reference Range Interpretation Comments WHITE BLOOD CELL COUNT (BEAKER) (test code = 775) 7.2 K/ L 3.5- 10.5 RED BLOOD CELL COUNT (BEAKER) (test code = 761) 3.88 M/ L 4.63-6 .08 L HEMOGLOBIN (BEAKER) (test code = 410) 9.8 GM/DL 13.7-17.5 L HEMATOCRIT (BEAKER) (test code = 411) 31.7 % 40.1-51.0 L MEAN CORPUSCULAR VOLUME (BEAKER) (test code = 753) 81.7 fL 79. 0-92.2 MEAN CORPUSCULAR HEMOGLOBIN (BEAKER) (test code = 751) 25.3 pg 25.7-32.2 L MEAN CORPUSCULAR HEMOGLOBIN CONC (BEAKER) (test code = 752) 30.9 GM/DL 32.3-36.5 L RED CELL DISTRIBUTION WIDTH (BEAKER) (test code = 412) 16.9 % 11.6-14.4 H PLATELET COUNT (BEAKER) (test code = 756) 246 K/CU MM 150-450 MEAN PLATELET VOLUME (BEAKER) (test code = 754) 9.0 fL 9.4-12 .4 L NUCLEATED RED BLOOD CELLS (BEAKER) (test code = 413) 0 /100 WBC 0 -0 NEUTROPHILS RELATIVE PERCENT (BEAKER) (test code = 429) 79 % LYMPHOCYTES RELATIVE PERCENT (BEAKER) (test code = 430) 8 % MONOCYTES RELATIVE PERCENT (BEAKER) (test code = 431) 12 % EOSINOPHILS RELATIVE PERCENT (BEAKER) (test code = 432) 1 % BASOPHILS RELATIVE PERCENT (BEAKER) (test code = 437) 0 % NEUTROPHILS ABSOLUTE COUNT (BEAKER) (test code = 670) 5.67 K/ L 1.78-5.38 H LYMPHOCYTES ABSOLUTE COUNT (BEAKER) (test code = 414) 0.54 K/ L 1.32-3.57 L MONOCYTES ABSOLUTE COUNT (BEAKER) (test code = 415) 0.84 K/ L 0. 30-0.82 H EOSINOPHILS ABSOLUTE COUNT (BEAKER) (test code = 416) 0.09 K/ L 0.04-0.54 BASOPHILS ABSOLUTE COUNT (BEAKER) (test code = 417) 0.02 K/ L 0. 01-0.08 IMMATURE GRANULOCYTES-RELATIVE PERCENT (BEAKER) (test code = 2801) 1 % 0-1 BASIC METABOLIC [id number] 05:55:00* Test Item Value Reference Range Interpretation Comments SODIUM (BEAKER) (test code = 381) 142 meq/L 136-145 POTASSIUM (BEAKER) (test code = 379) 3.6 meq/L 3.5-5.1 CHLORIDE (BEAKER) (test code = 382) 108 meq/L 98-107 H CO2 (BEAKER) (test code = 355) 25 meq/L 22-29 BLOOD UREA NITROGEN (BEAKER) (test code = 354) 26 mg/dL 7-21 H CREATININE (BEAKER) (test code = 358) 0.94 mg/dL 0.57-1.25 GLUCOSE RANDOM (BEAKER) (test code = 652) 112 mg/dL 70-105 H CALCIUM (BEAKER) (test code = 697) 8.7 mg/dL 8.4-10.2 EGFR (BEAKER) (test code = 1092) 77 mL/min/1.73 sq m ESTIMATED GFR IS NOT ACCURATE CREATININE CLEARANCE IN PREDICTING GLOMERULAR FILTRATION RATE. ESTIMATED GFR IS NOT APPLICABLE FOR DIALYSIS PATIENTS. Circuit Board Repair Technician ID - ADELAIDA MPOCT-GLUCOSE [id number] 01:16:00* Test Item Value Reference Range Interpretation Comments POC-GLUCOSE METER (BEAKER) (test code = 1538) 110 mg/dL 70-110 : Notified RN/MD: TESTED AT [address], [address]: Circuit Board Repair Technician/Six Color Press Operator ID = [id number] for JEWELS ESPINOZA POCT-GLUCOSE [id number] 17:52:00* Test Item Value Reference Range Interpretation Comments POC-GLUCOSE METER (BEAKER) (test code = 1538) 164 mg/dL 70-110 H : TESTED AT [address], [address]: Circuit Board Repair Technician/Six Color Press Operator ID = [id number] for LORRAINE GRIFFIN MR, BRAIN, WITHOUT [id number] 16:33:00FINAL REPORT MR, BRAIN, WITHOUT CONTRAST INDICATION: Stroke, [...] Globes are intact. Calvarium \T\ scalp: Unremarkable. 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 Signed: Kathy Carbajal Verified Date/Time: 02/19/2020 16 :33:42 04: 33 PM MR brain without IV [id number] 16:33:00Interface, External Ris In - 02/19/2020 4:35 PM CDTFINAL REPORT MR, BRAIN, WITHOUT CONTRAST INDICATION: Stroke, [...] Globes are intact. Calvarium \T\ scalp: Unremarkable. IMPRESSION:1.Evolving left MCA territory infarct without hemorrhagic trans formation.2.Additional small right posterior border zone infarct. Signed: Kathy Moreno Verified Date/Time: 02/19/2020 16:33:42 Electronically sign ed by: KATHY CARBAJAL MD on 02/19/2020 04:33 PM [facility]JACKIE)2020-02-19 14:34:00* Test Item Value Reference Range Interpretation Comments JACKIE (test code = 41605-0) Negative Negative NARCISA (test code = NARCISA) Test performed by IFA method .Test performed by IFA method. Lab Interpretation (test code = 22930-0) [facility]IE[facility]2020-02-19 14:34:00* Test Item Value Reference Range Interpretation Comments ANTI-NUCLEAR ANTIBODY (JACKIE) (BEAKER) (test code = 418) Negative Negative Test performed by IFA method.Test performed by IFA method.POCT-GLUCOSE METER 2020-02-19 11:44:00* Test Item Value Reference Range Interpretation Comments POC-GLUCOSE METER (BEAKER) (test code = 1538) 162 mg/dL 70-110 H : TESTED AT [place] [id number] [facility], [address]: Circuit Board Repair Technician/Six Color Press Operator ID = [id number] for HUMBERTO ESPARZA POCT-GLUCOSE [id number] 09:40:00* Test Item Value Reference Range Interpretation Comments POC-GLUCOSE METER (BEAKER) (test code = 1538) 145 mg/dL 70-110 H : TESTED AT [address], [address]: Circuit Board Repair Technician/Six Color Press Operator ID = [id number] for LORRAINE GRIFFIN POCT-GLUCOSE [id number] 09:02:00* Test Item Value Reference Range Interpretation Comments POC-GLUCOSE METER (BEAKER) (test code = 1538) 110 mg/dL 70-110 : TESTED AT [address], [address]: Circuit Board Repair Technician/Six Color Press Operator ID = [id number] for HUMBERTO ESPARZA CYCLOSPORINE [id number] 08:54:00* Test Item Value Reference Range Interpretation Comments CYCLOSPORINE BLOOD (BEAKER) (test code = 672) 62 ng/mL <400 Circuit Board Repair Technician ID - AAHAMIDSIROLIMUS [id number] 08:42:00* Test Item Value Reference Range Interpretation Comments SIROLIMUS LEVEL BLOOD (BEAKER) (test code = 806) 7.6 ng/mL 5.0-1 5.0 Circuit Board Repair Technician ID - [id number] W/PLT COUNT & AUTO [id number] 05:49:00* Test Item Value Reference Range Interpretation Comments WHITE BLOOD CELL COUNT (BEAKER) (test code = 775) 9.2 K/ L 3.5- 10.5 RED BLOOD CELL COUNT (BEAKER) (test code = 761) 3.84 M/ L 4.63-6 .08 L HEMOGLOBIN (BEAKER) (test code = 410) 9.6 GM/DL 13.7-17.5 L HEMATOCRIT (BEAKER) (test code = 411) 31.2 % 40.1-51.0 L MEAN CORPUSCULAR VOLUME (BEAKER) (test code = 753) 81.3 fL 79. 0-92.2 MEAN CORPUSCULAR HEMOGLOBIN (BEAKER) (test code = 751) 25.0 pg 25.7-32.2 L MEAN CORPUSCULAR HEMOGLOBIN CONC (BEAKER) (test code = 752) 30.8 GM/DL 32.3-36.5 L RED CELL DISTRIBUTION WIDTH (BEAKER) (test code = 412) 16.9 % 11.6-14.4 H PLATELET COUNT (BEAKER) (test code = 756) 271 K/CU MM 150-450 MEAN PLATELET VOLUME (BEAKER) (test code = 754) 9.3 fL 9.4-12 .4 L NUCLEATED RED BLOOD CELLS (BEAKER) (test code = 413) 0 /100 WBC 0 -0 NEUTROPHILS RELATIVE PERCENT (BEAKER) (test code = 429) 80 % LYMPHOCYTES RELATIVE PERCENT (BEAKER) (test code = 430) 6 % MONOCYTES RELATIVE PERCENT (BEAKER) (test code = 431) 13 % EOSINOPHILS RELATIVE PERCENT (BEAKER) (test code = 432) 1 % BASOPHILS RELATIVE PERCENT (BEAKER) (test code = 437) 0 % NEUTROPHILS ABSOLUTE COUNT (BEAKER) (test code = 670) 7.40 K/ L 1.78-5.38 H LYMPHOCYTES ABSOLUTE COUNT (BEAKER) (test code = 414) 0.54 K/ L 1.32-3.57 L MONOCYTES ABSOLUTE COUNT (BEAKER) (test code = 415) 1.16 K/ L 0. 30-0.82 H EOSINOPHILS ABSOLUTE COUNT (BEAKER) (test code = 416) 0.05 K/ L 0.04-0.54 BASOPHILS ABSOLUTE COUNT (BEAKER) (test code = 417) 0.02 K/ L 0. 01-0.08 IMMATURE GRANULOCYTES-RELATIVE PERCENT (BEAKER) (test code = 2801) 0 % 0-1 C-Reactive [id number] 05:11:00* Test Item Value Reference Range Interpretation Comments CRP (test code = 676) 13.24 mg/dL 0-0.5 H NARCISA (test code = NARCISA) Circuit Board Repair Technician ID - EDASI Lab Interpretation (test code = 55717-6) [facility]normal [facility] [id number] 05:11:00* Test Item Value Reference Range Interpretation Comments SODIUM (BEAKER) (test code = 381) 140 meq/L 136-145 POTASSIUM (BEAKER) (test code = 379) 3.3 meq/L 3.5-5.1 L CHLORIDE (BEAKER) (test code = 382) 106 meq/L 98-107 CO2 (BEAKER) (test code = 355) 24 meq/L 22-29 BLOOD UREA NITROGEN (BEAKER) (test code = 354) 39 mg/dL 7-21 H CREATININE (BEAKER) (test code = 358) 1.21 mg/dL 0.57-1.25 GLUCOSE RANDOM (BEAKER) (test code = 652) 101 mg/dL 70-105 CALCIUM (BEAKER) (test code = 697) 8.7 mg/dL 8.4-10.2 EGFR (BEAKER) (test code = 1092) 58 mL/min/1.73 sq m ESTIMATED GFR IS NOT ACCURATE CREATININE CLEARANCE IN PREDICTING GLOMERULAR FILTRATION RATE. ESTIMATED GFR IS NOT APPLICABLE FOR DIALYSIS PATIENTS. Circuit Board Repair Technician ID - EDASIC-REACTIVE [id number] 05:11:00* Test Item Value Reference Range Interpretation Comments C-REACTIVE PROTEIN (BEAKER) (test code = 676) 13.24 mg/dL 0.00-0.5 0 H Circuit Board Repair Technician ID - EDASIPOCT-GLUCOSE [id number] 21:40:00* Test Item Value Reference Range Interpretation Comments POC-GLUCOSE METER (BEAKER) (test code = 1538) 179 mg/dL 70-110 H : Notified RN/MD: TESTED AT [address], [address]: Circuit Board Repair Technician/Six Color Press Operator ID = [id number] for JEWELS ESPINOZA POCT-GLUCOSE [id number] 18:39:00* Test Item Value Reference Range Interpretation Comments POC-GLUCOSE METER (BEAKER) (test code = 1538) 189 mg/dL 70-110 H : TESTED AT [address], [address]: Circuit Board Repair Technician/Six Color Press Operator ID = [id number] for MELANIE MENDOZA [id number] 13:20:00* Test Item Value Reference Range Interpretation Comments RPR (test code = 65456-6) Nonreactive Nonreactive Lab Interpretation (test code = 30356-5) Normal [facility] 13:20:00* Test Item Value Reference Range Interpretation Comments RPR SCREEN (BEAKER) (test code = 420) Nonreactive Nonreactive POCT-GLUCOSE [id number] 11:30:00* Test Item Value Reference Range Interpretation Comments POC-GLUCOSE METER (BEAKER) (test code = 1538) 174 mg/dL 70-110 H : TESTED AT [facility] [address] [facility], [address]: Circuit Board Repair Technician/Six Color Press Operator ID = [id number] for MENDOZA, VY POCT-GLUCOSE [id number] 08:07:00* Test Item Value Reference Range Interpretation Comments POC-GLUCOSE METER (BEAKER) (test code = 1538) 164 mg/dL 70-110 H : TESTED AT [facility] [address] [facility], [address]: Circuit Board Repair Technician/Six Color Press Operator ID = [id number] for MENDOZA, VY CYCLOSPORINE [id number] 07:51:00* Test Item Value Reference Range Interpretation Comments CYCLOSPORINE BLOOD (BEAKER) (test code = 672) 50 ng/mL <400 Circuit Board Repair Technician ID - AAHAMIDSIROLIMUS [id number] 07:49:00* Test Item Value Reference Range Interpretation Comments SIROLIMUS LEVEL BLOOD (BEAKER) (test code = 806) 9.5 ng/mL 5.0-1 5.0 Circuit Board Repair Technician ID - AAHAMIDBASIC METABOLIC [id number] 03:58:00* Test Item Value Reference Range Interpretation Comments SODIUM (BEAKER) (test code = 381) 137 meq/L 136-145 POTASSIUM (BEAKER) (test code = 379) 3.9 meq/L 3.5-5.1 CHLORIDE (BEAKER) (test code = 382) 106 meq/L 98-107 CO2 (BEAKER) (test code = 355) 20 meq/L 22-29 L BLOOD UREA NITROGEN (BEAKER) (test code = 354) 44 mg/dL 7-21 H CREATININE (BEAKER) (test code = 358) 1.51 mg/dL 0.57-1.25 H GLUCOSE RANDOM (BEAKER) (test code = 652) 174 mg/dL 70-105 H CALCIUM (BEAKER) (test code = 697) 8.3 mg/dL 8.4-10.2 L EGFR (BEAKER) (test code = 1092) 45 mL/min/1.73 sq m ESTIMATED GFR IS NOT ACCURATE CREATININE CLEARANCE IN PREDICTING GLOMERULAR FILTRATION RATE. ESTIMATED GFR IS NOT APPLICABLE FOR DIALYSIS PATIENTS. Circuit Board Repair Technician ID - EDASICBC W/PLT COUNT & AUTO [id number] 03:47:00* Test Item Value Reference Range Interpretation Comments WHITE BLOOD CELL COUNT (BEAKER) (test code = 775) 11.0 K/ L 3.5- 10.5 H RED BLOOD CELL COUNT (BEAKER) (test code = 761) 3.58 M/ L 4.63-6 .08 L HEMOGLOBIN (BEAKER) (test code = 410) 8.9 GM/DL 13.7-17.5 L HEMATOCRIT (BEAKER) (test code = 411) 29.3 % 40.1-51.0 L MEAN CORPUSCULAR VOLUME (BEAKER) (test code = 753) 81.8 fL 79. 0-92.2 MEAN CORPUSCULAR HEMOGLOBIN (BEAKER) (test code = 751) 24.9 pg 25.7-32.2 L MEAN CORPUSCULAR HEMOGLOBIN CONC (BEAKER) (test code = 752) 30.4 GM/DL 32.3-36.5 L RED CELL DISTRIBUTION WIDTH (BEAKER) (test code = 412) 17.1 % 11.6-14.4 H PLATELET COUNT (BEAKER) (test code = 756) 253 K/CU MM 150-450 MEAN PLATELET VOLUME (BEAKER) (test code = 754) 8.8 fL 9.4-12 .4 L NUCLEATED RED BLOOD CELLS (BEAKER) (test code = 413) 0 /100 WBC 0 -0 NEUTROPHILS RELATIVE PERCENT (BEAKER) (test code = 429) 83 % LYMPHOCYTES RELATIVE PERCENT (BEAKER) (test code = 430) 6 % MONOCYTES RELATIVE PERCENT (BEAKER) (test code = 431) 11 % EOSINOPHILS RELATIVE PERCENT (BEAKER) (test code = 432) 0 % BASOPHILS RELATIVE PERCENT (BEAKER) (test code = 437) 0 % NEUTROPHILS ABSOLUTE COUNT (BEAKER) (test code = 670) 9.07 K/ L 1.78-5.38 H LYMPHOCYTES ABSOLUTE COUNT (BEAKER) (test code = 414) 0.66 K/ L 1.32-3.57 L MONOCYTES ABSOLUTE COUNT (BEAKER) (test code = 415) 1.16 K/ L 0. 30-0.82 H EOSINOPHILS ABSOLUTE COUNT (BEAKER) (test code = 416) 0.01 K/ L 0.04-0.54 L BASOPHILS ABSOLUTE COUNT (BEAKER) (test code = 417) 0.01 K/ L 0. 01-0.08 IMMATURE GRANULOCYTES-RELATIVE PERCENT (BEAKER) (test code = 2801) 1 % 0-1 POCT-GLUCOSE [id number] 22:35:00* Test Item Value Reference Range Interpretation Comments POC-GLUCOSE METER (BEAKER) (test code = 1538) 139 mg/dL 70-110 H : Notified RN/MD: TESTED AT [address], [address]: Circuit Board Repair Technician/Six Color Press Operator ID = [id number] for ERUM BARRIGA BASIC METABOLIC [id number] 17:41:00* Test Item Value Reference Range Interpretation Comments SODIUM (BEAKER) (test code = 381) 139 meq/L 136-145 POTASSIUM (BEAKER) (test code = 379) 4.0 meq/L 3.5-5.1 CHLORIDE (BEAKER) (test code = 382) 108 meq/L 98-107 H CO2 (BEAKER) (test code = 355) 21 meq/L 22-29 L BLOOD UREA NITROGEN (BEAKER) (test code = 354) 40 mg/dL 7-21 H CREATININE (BEAKER) (test code = 358) 1.31 mg/dL 0.57-1.25 H GLUCOSE RANDOM (BEAKER) (test code = 652) 85 mg/dL 70-105 CALCIUM (BEAKER) (test code = 697) 8.4 mg/dL 8.4-10.2 EGFR (BEAKER) (test code = 1092) 53 mL/min/1.73 sq m ESTIMATED GFR IS NOT ACCURATE CREATININE CLEARANCE IN PREDICTING GLOMERULAR FILTRATION RATE. ESTIMATED GFR IS NOT APPLICABLE FOR DIALYSIS PATIENTS. Circuit Board Repair Technician ID - BEATRICE FPOCT-GLUCOSE [id number] 17:16:00* Test Item Value Reference Range Interpretation Comments POC-GLUCOSE METER (BEAKER) (test code = 1538) 85 mg/dL 70-110 : TESTED AT [facility] [address] [facility], [address]: Circuit Board Repair Technician/Six Color Press Operator ID = [id number] for SHAYLA RODRIGUEZ POCT-GLUCOSE [id number] 11:27:00* Test Item Value Reference Range Interpretation Comments POC-GLUCOSE METER (BEAKER) (test code = 1538) 151 mg/dL 70-110 H : TESTED AT [facility] [address] [facility], [address]: Circuit Board Repair Technician/Six Color Press Operator ID = [id number] for JORJE RODRIGUEZA CYCLOSPORINE [id number] 11:19:00* Test Item Value Reference Range Interpretation Comments CYCLOSPORINE BLOOD (BEAKER) (test code = 672) 64 ng/mL <400 Circuit Board Repair Technician ID - CHRISTINE FONGESIROLIMUS [id number] 11:18:00* Test Item Value Reference Range Interpretation Comments SIROLIMUS LEVEL BLOOD (BEAKER) (test code = 806) 7.7 ng/mL 5.0-1 5.0 Circuit Board Repair Technician ID - CHRISTINE VALDIVIAlood gas, [id number] 08:37:00* Test Item Value Reference Range Interpretation Comments pH, Arterial (test code = 2744-1) 7.45 7.35-7.45 pCO2, Arterial (test code = 2019-8) 29 35- 45 mmHg L pO2, Arterial (test code = 2703-7) 92 80- 90 mmHg H O2 Sat, Arterial (test code = 2708-6) 97.4 % 96-97 H HCO3, Arterial (test code = 1960-4) 19 mmol/L 21-29 L Base Excess, Arterial (test code = 1925-7) -3.9 mmol/L -2-3 L Patient Temperature (test code = 8310-5) 37.0 C FIO2 (test code = 1819) 40 % Lab Interpretation (test code = 42109-6) [facility]normal [facility], [id number] 08:37:00* Test Item Value Reference Range Interpretation Comments PH ARTERIAL (BEAKER) (test code = 383) 7.45 7.35-7.45 PCO2 ARTERIAL (BEAKER) (test code = 384) 29 mmHg 35-45 L PO2 ARTERIAL (BEAKER) (test code = 385) 92 mmHg 80-90 H O2 SATURATION ARTERIAL (BEAKER) (test code = 386) 97.4 % 96.0 -97.0 H HCO3 ARTERIAL (BEAKER) (test code = 388) 19 mmol/L 21-29 L BASE EXCESS ARTERIAL (BEAKER) (test code = 387) -3.9 mmol/L -2.0-3 .0 L PATIENT TEMPERATURE (BEAKER) (test code = 1818) 37.0 C FIO2 (BEAKER) (test code = 1819) 40.0 % POCT-GLUCOSE [id number] 08:12:00* Test Item Value Reference Range Interpretation Comments POC-GLUCOSE METER (BEAKER) (test code = 1538) 249 mg/dL 70-110 H : Notified RN/MD: TESTED AT [address], [address]: Circuit Board Repair Technician/Six Color Press Operator ID = [id number] for NAVDEEP DELGADO POCT-GLUCOSE [id number] 06:59:00* Test Item Value Reference Range Interpretation Comments POC-GLUCOSE METER (BEAKER) (test code = 1538) 305 mg/dL 70-110 H : TESTED AT [address], [address]: Circuit Board Repair Technician/Six Color Press Operator ID = [id number] for CHRISTINE MUNGUIA Ketone, [id number] 06:54:00* Test Item Value Reference Range Interpretation Comments Ketones, Blood (test code = 1103) 1.7 mmol/L <0.4 H Lab Interpretation (test code = 88066-6) Abnormal [facility]ET[facility], [id number] 06:54:00* Test Item Value Reference Range Interpretation Comments KETONES, BLOOD (BEAKER) (test code = 1103) 1.7 mmol/L <0.4 H RAD, CHEST, 1 VIEW, NON [id number] 06:48:00Reason for exam:->Desatting, new wheezingShould this be performed at the bedside?->YesFINAL REPORT CLINICAL INDICATION: Hypoxia, wheezing Comparison: 02/15/2020 at 1853 hours The cardiomediastinal contours are stable. Central pulmonary vascular congestion and left greater than right parenchymal and pleural opacities are unchanged. There is no pneumothorax. A right IJ CVC remains in place. IMPRESSION: No significant interval change. Signed: Myra Ricketts MDReport Verified Date/Time: 02/17/2020 06:48:55 chest 1 view portable / bedside 2020-02-17 06:48:00Interface, External Ris In - 02/17/2020 6:51 AM CDTFINAL REPORT CLINICAL INDICATION: Hypoxia, wheezing Comparison: 02/15/2020 at 1853 hours The cardiomediastinal contours are stable. Central pulmonary vascular congestion and left greater than right parenchymal and pleural opacities are unchanged. There is no pneumothorax. A right IJ CVC remains in place. IMPRESSION: No significant interval change. Signed: Myra Ricketts MDReport Verified Date/Time: 02/17/2020 06:48:55 [facility] W/PLT COUNT & AUTO [id number] 06:38:00* Test Item Value Reference Range Interpretation Comments WHITE BLOOD CELL COUNT (BEAKER) (test code = 775) 14.0 K/ L 3.5- 10.5 H RED BLOOD CELL COUNT (BEAKER) (test code = 761) 3.86 M/ L 4.63-6 .08 L HEMOGLOBIN (BEAKER) (test code = 410) 9.8 GM/DL 13.7-17.5 L HEMATOCRIT (BEAKER) (test code = 411) 31.9 % 40.1-51.0 L MEAN CORPUSCULAR VOLUME (BEAKER) (test code = 753) 82.6 fL 79. 0-92.2 MEAN CORPUSCULAR HEMOGLOBIN (BEAKER) (test code = 751) 25.4 pg 25.7-32.2 L MEAN CORPUSCULAR HEMOGLOBIN CONC (BEAKER) (test code = 752) 30.7 GM/DL 32.3-36.5 L RED CELL DISTRIBUTION WIDTH (BEAKER) (test code = 412) 17.2 % 11.6-14.4 H PLATELET COUNT (BEAKER) (test code = 756) 314 K/CU MM 150-450 MEAN PLATELET VOLUME (BEAKER) (test code = 754) 9.6 fL 9.4-12 .4 NUCLEATED RED BLOOD CELLS (BEAKER) (test code = 413) 0 /100 WBC 0 -0 NEUTROPHILS RELATIVE PERCENT (BEAKER) (test code = 429) 86 % LYMPHOCYTES RELATIVE PERCENT (BEAKER) (test code = 430) 4 % MONOCYTES RELATIVE PERCENT (BEAKER) (test code = 431) 9 % EOSINOPHILS RELATIVE PERCENT (BEAKER) (test code = 432) 0 % BASOPHILS RELATIVE PERCENT (BEAKER) (test code = 437) 0 % NEUTROPHILS ABSOLUTE COUNT (BEAKER) (test code = 670) 12.01 K/ L 1.78-5.38 H LYMPHOCYTES ABSOLUTE COUNT (BEAKER) (test code = 414) 0.52 K/ L 1.32-3.57 L MONOCYTES ABSOLUTE COUNT (BEAKER) (test code = 415) 1.28 K/ L 0. 30-0.82 H EOSINOPHILS ABSOLUTE COUNT (BEAKER) (test code = 416) 0.01 K/ L 0.04-0.54 L BASOPHILS ABSOLUTE COUNT (BEAKER) (test code = 417) 0.03 K/ L 0. 01-0.08 IMMATURE GRANULOCYTES-RELATIVE PERCENT (BEAKER) (test code = 2801) 1 % 0-1 BASIC METABOLIC [id number] 06:28:00* Test Item Value Reference Range Interpretation Comments SODIUM (BEAKER) (test code = 381) 136 meq/L 136-145 POTASSIUM (BEAKER) (test code = 379) 4.5 meq/L 3.5-5.1 CHLORIDE (BEAKER) (test code = 382) 106 meq/L 98-107 CO2 (BEAKER) (test code = 355) 20 meq/L 22-29 L BLOOD UREA NITROGEN (BEAKER) (test code = 354) 35 mg/dL 7-21 H CREATININE (BEAKER) (test code = 358) 1.36 mg/dL 0.57-1.25 H GLUCOSE RANDOM (BEAKER) (test code = 652) 295 mg/dL 70-105 H CALCIUM (BEAKER) (test code = 697) 8.5 mg/dL 8.4-10.2 EGFR (BEAKER) (test code = 1092) 51 mL/min/1.73 sq m ESTIMATED GFR IS NOT ACCURATE CREATININE CLEARANCE IN PREDICTING GLOMERULAR FILTRATION RATE. ESTIMATED GFR IS NOT APPLICABLE FOR DIALYSIS PATIENTS. Circuit Board Repair Technician ID - ADELAIDA MNV, ANGIOGRAM, [id number] 01:36:00Reason for exam:-> strokeFINAL REPORT Date of Procedure: February 15, 2020 Surgeon: Stalin Mittal MDAssistant: Delvin Naranjo MD Pre-operative diagnosis: L M1 OcclusionPost-operative diagnosis: L M1 Occlusion Procedure: Diagnostic Angiogram and mechanical thrombectomy Anesthesiologist: per anesthesia recordsAnesthesia Type: General Complications: None apparent Indication for procedure:79 year old male who presented to ER when found by his family to be aphasic [...] double aspiration on infinity and vecta removed t revo and vecta. A large clot was seen in the aspiration catheter and stentreiver . A follow up run demonstrated TICI 3 reperfusion. At this point all sheaths and catheters were removed. Femoral arteriotomy was closed with a 8 Swiss Angio-Se al. Patient was transported to the neuro ICU in stable condition. Findings: Left Common Carotid Artery (AP, Lateral,)-The origins of the left internal and exter nal carotid arteries are widely patent without evidence of ulceration or stenosi s. The visualized branches of the external carotid artery are normal in appearan ce and course. The venous and capillary phases are normal Left Internal Carotid Artery (AP, Lateral) -The cervical carotid artery is patent without areas of glory nosis, dissection or ulceration; and is without branches -The petrous carotid ar catracho is patent without areas of stenosis, dissection or ulceration the mandibulo vidian artery is not visualized, no petrosal segment aneurysms -The cavernous ca rotid artery is patent without areas of stenosis, dissection, or ulceration, men ingohypophyseal trunk and inferolateral trunks are not visualized, there are no cavernous segment aneurysms -The supraclinoidal carotid artery, the opthalmic, communicating, and choroidal segments are patent without areas of stenosis and w ithout aneurysms. The posterior communicating artery is small sized, the anterio r choridal artery is visualized. The A1 is visualized and is without stenosis or vasospasm. The M1 is occluded soon after the carotid terminus and there is no f illing of the distal MCA territory prior to intervention. Following Trevumbra te chnique mechanical thrombectomy there is TICI 3 reperfusion and the entire jeff tory robustly fills. -The FORREST fill physiologically throughout their territory w ith a small amount of cross-filling across the anterior communicating artery. Th ere is no noted stenosis or vasospasm noted within its branches. There are no no sendy aneurysms of the pericallosal or supramarginal branches. There is no evidenc e of arteriovenous shunting The capillary phase is normal without areas of malpe rfusion, the venous phase demonstrates a normal venous draining pattern Summary of Findings 1. L M1 occlusion that was reperfused (TICI 3) following Trevumbra technique for mechanical thrombectomy2. No other vascular malformations noted in the studied vessels3. No evidence of clinical or radiographic complication Sign ed: Stalin Mittal MDReport Verified Date/Time: 02/17/2020 01:36:13 Karin [place]is Location: [facility] Y026 Neuro Angio Reading Room cerebral 4 vessel angiogram 2020-02-17 01:36:00Interface, External Ris In - 02/17/2020 1:38 AM CDTFINAL REPORT Date of Procedure: February 15, 2020 Surgeon: Sergio Mittal MDAssistant: Delvin Naranjo MD Pre-operative diagnosis: L M1 OcclusionPost-operative diagnosis: L M1 Occlusion Procedure: Diagnostic Angiogram and mechanical thrombectomy Anesthesiologist: per anesthesia recordsAnesthesia Type: General Complications: None apparent Indication for procedure:79 year old male who presented to ER when found by his family to be aphasic [...] placed and maintained on heparinized flush. An Aparc Systemsity plus guide catheter and a VTK diagnostic catheter was introduced and brought into the aortic arch under fluoroscopic guidance using coaxial technique. The diagnostic catheter was used to catheterize the left common carotid artery and sequentially the internal carotid artery under fluoroscopic and roadmap guidance. A run showed a left M1 occlusion. The guide catheter was brought up to the carotid b ifurcation but not crossed at this time due to an atherosclerotic ICA. The diagn ostic set up was removed and an aspiration system of a Vecta [address], marksman microcatheter, and Synchro 0.014 microwire was introduced into the infinity plus. The microwire and microwire were brought up under roadmap and fl uoroscopic guidance to cross the M1 occlusion. Once the microwire and catheter w ere solidly in the M2 the aspiration catheter was advanced into the carotid siph on but due to tortuosity was unable to advance to the occluded M1. A Trevo stent reiver (4x20) was introduced through the marksman and across the lesion and was slowly unsheathed under constant fluoroscopy. Aspiration tubing was connected an d we brought the stentreiver partially back into the aspiration catheter and und er double aspiration on infinity and vecta removed trevo and vecta. A large clot was seen in the aspiration catheter and stentreiver. A follow up run demonstrat ed TICI 3 reperfusion. At this point all sheaths and catheters were removed. Fem oral arteriotomy was closed with a 8 Swiss Angio-Seal. Patient was transported to the neuro ICU in stable condition. Findings: Left Common Carotid Artery (AP, Lateral,)-The origins of the left internal and external carotid arteries are wid archie patent without evidence of ulceration or stenosis. The visualized branches o f the external carotid artery are normal in appearance and course. The venous an d capillary phases are normal Left Internal Carotid Artery (AP, Lateral) -The ce rvical carotid artery is patent without areas of stenosis, dissection or ulcerat ion; and is without branches -The petrous carotid artery is patent without areas of stenosis, dissection or ulceration the mandibulovidian artery is not visuali zed, no petrosal segment aneurysms -The cavernous carotid artery is patent witho ut areas of stenosis, dissection, or ulceration, meningohypophyseal trunk and in ferolateral trunks are not visualized, there are no cavernous segment aneurysms -The supraclinoidal carotid artery, the opthalmic, communicating, and choroidal segments are patent without areas of stenosis and without aneurysms. The nurse orthopaedic ior communicating artery is small sized, the anterior choridal artery is visuali zed. The A1 is visualized and is without stenosis or vasospasm. The M1 is occlud ed soon after the carotid terminus and there is no filling of the distal MCA ter ritory prior to intervention. Following Trevumbra technique mechanical thrombect vannesa there is TICI 3 reperfusion and the entire territory robustly fills. -The A CA fill physiologically throughout their territory with a small amount of cross- filling across the anterior communicating artery. There is no noted stenosis or vasospasm noted within its branches. There are no noted aneurysms of the perical losal or supramarginal branches. There is no evidence of arteriovenous shunting The capillary phase is normal without areas of malperfusion, the venous phase de monstrates a normal venous draining pattern Summary of Findings 1. L M1 occlusi on that was reperfused (TICI 3) following Trevumbra technique for mechanical thr ombectomy2. No other vascular malformations noted in the studied vessels3. No ev idence of clinical or radiographic complication Signed: Stalin [place] port Verified Date/Time: 02/17/2020 01:36:13 Reading Location: [facility] [address] [place] [address] Angio Reading Room Electronically signed by: STALIN MITTAL MD on 03/2020 01:36 AM [facility] [id number] 22:50:00* Test Item Value Reference Range Interpretation Comments POC-GLUCOSE METER (FrugalMechanic) (test code = 1538) 217 mg/dL 70-110 H : Notified RN/MD: TESTED AT [address], [address]: Circuit Board Repair Technician/Six Color Press Operator ID = [id number] for ERUM BARRIGA 2D Echo W/Doppler(CW/PW/Color)2020-02-16 18:21:53Ejection FractionSLEH ECHO HEARTLAB MKCKESSON CPACSInterface, External Ris In - 02/16/2020 6:22 PM CDTTransthoracic Echocardiography Report (TTE) Demographics Patient Name LISA GLASER Date of Study 02/16/2020 CRYSTAL Gender Male Visit Number [id number] Race Unknown Room Number 7520 Number Date of 1940 Referring Alexx Hawkins Physician Age 79 year(s) [employer] [place] Rommel Roland Physician Procedure Type of Study TTE procedure:2DECHO W DOPPLER(CW/PW/COLOR) (Routine) Indications:Suspected cardiac source of emboli.Clinical HistoryHGB 10.0HCT 32.3 %PAD, ESRD, HTN, STROK E, HLDContrast Medium: Bubble Study.Height: 66 inches Weight: 74.39 kg (164 lbs) BSA: 1.84 m^2 BMI: 26.47 kg/m^2HR: 82 bpm BP: 122/82 mmHg Summary 1. [...] segments are hyperkinetic . Global LV systolic f unction hyperdynamic . LVEF by Gil's method of disk a ssessment is increased (>70%) . The LVEF was [...] The estimated RA pressure by IVC dynamics 11- 15mmHg . Chambers/Structures Left Atrium LA Volume: 74.75 ml LA Area: 24.29 cm^2 LA Vol. Index: 41 ml/m^2 Left Ventricle LVIDd: 3.87 cm LVEDV:85.92 ml LV Septum Diastolic: 1.24 cm LV PW Diastolic: 1.1 cm LVEDV Gil's:57.28 ml LVESV Gil's:13.91 ml LVEF Gil's: 75.7 % LVEDVI: 31 ml/m^2 LVESVI: 8 ml/m^2 LVOT Diameter: 1.96 cm Aorta Ao Root S of Latrice.: 2.99 cm Doppler/Quantitative Measurements Aortic Valve Peak Velocity: 1.65 m/s Mean Veloci ty: 1.09 m/s Peak Gradient: 10.85 mmHg Mean Gradient: 5.5 mmHg A V Area (continuity): 2.57 cm^2 AV VTI: 31.82 cm AV DVI: 0.85 LVOT Peak Veloci ty: 1.29 m/s Peak Gradient: 6.71 mmHg Mean Velocity: 0.89 m/s Mean Gradient: 3.62 mmHg LVOT Diameter: 1.96 cm LVOT VTI: 27. 07 cm LVOT Area: 3.02 cm^2 LVOT SV:81.63 ml LVOT CO: 6.69 l/min LVOT CI: 3.64 l/min/m^2 [facility] [id number] 17:40:00* Test Item Value Reference Range Interpretation Comments POC-GLUCOSE METER (JIMGINO) (test code = 1538) 239 mg/dL 70-110 H : Notified RN/MD: TESTED AT [facility] [address] [facility], [address]: Circuit Board Repair Technician/Six Color Press Operator ID = [id number] for JENNIFER, TIKEYA ECG 12 [id number] 17:07:14Interface, External Ris In - 02/16/2020 5:07 PM CDTVentricular Rate 92 BPMAtrial Rate 84 BPMQRS Duration 78 msQ-T Interval 376 msQTC Calculation(Bazett) 464 msR [place] 2 degreesT [place] 50 degreesAtrial fibrillationLow voltage QRSProlonged QTAbnormal ECGWhen compared with ECG of 08-MAR-2012 10:44,Atrial fibrillation has replaced Sinus rhythmQRS amplitude has decreasedNon-specific change in ST segment in Inferior leadsNonspecific T wave abnormality, worse in Inferior leadsConfirmed by MD VIRGIE, KIMBERLY ([id number]) on 02/16/2020 5:07:08 [facility] [id number] 14:46:00* Test Item Value Reference Range Interpretation Comments Hemoglobin A1C (test code = 4548-4) 7.8 % 4.3-6.1 H Lab Interpretation (test code = 35938-7) Abnormal [facility] [id number] 14:46:00* Test Item Value Reference Range Interpretation Comments HEMOGLOBIN A1C (BEAKER) (test code = 368) 7.8 % 4.3-6.1 H POCT-GLUCOSE [id number] 12:19:00* Test Item Value Reference Range Interpretation Comments POC-GLUCOSE METER (BEAKER) (test code = 1538) 253 mg/dL 70-110 H : TESTED AT [facility] [address] [facility], [address]: Circuit Board Repair Technician/Six Color Press Operator ID = [id number] for SHAYLA RODRIGUEZ SIROLIMUS [id number] 11:47:00* Test Item Value Reference Range Interpretation Comments SIROLIMUS LEVEL BLOOD (BEAKER) (test code = 806) 7.1 ng/mL 5.0-1 5.0 Circuit Board Repair Technician ID - CHRISTINE IVORYrinalysis w/Microscopic + Reflex to [id number] 09:53:00* Test Item Value Reference Range Interpretation Comments Color, UA (test code = 5778-6) Yellow Clarity, UA (test code = 5767-9) Cloudy Specific Gerber, UA (test code = 5811-5) 1.023 1.001-1.035 pH, UA (test code = 5803-2) 6.0 5.0-8.0 Protein, UA (test code = 87962-2) 300 mg/dL Negative A Glucose, UA (test code = 365) 500 mg/dL Negative A Ketones, UA (test code = 2514-8) 60 mg/dL Negative A Bilirubin, UA (test code = 71767-5) Negative Negative Blood, UA (test code = 00076-8) Moderate Negative A Nitrite, UA (test code = 5802-4) Negative Negative Leukocytes, UA (test code = 5799-2) Large Negative A Urobilinogen, UA (test code = 39484-2) 0.2 mg/dL 0.2-1 RBC, UA (test code = 53321-2) 17 /HPF WBC, UA (test code = 5821-4) 2099 /HPF Bacteria, UA (test code = 63481-2) Moderate Specimen Source (test code = 2795) NARCISA (test code = NARCISA) Circuit Board Repair Technician ID - arnav Lab Interpretation (test code = 70894-2) Abnormal [facility]/ REFLEX URINE [id number] 09:53:00* Test Item Value Reference Range Interpretation Comments COLOR (BEAKER) (test code = 470) Yellow CLARITY (BEAKER) (test code = 469) Cloudy SPECIFIC GRAVITY UA (BEAKER) (test code = 468) 1.023 1.001-1 .035 PH UA (BEAKER) (test code = 467) 6.0 5.0-8.0 PROTEIN UA (BEAKER) (test code = 464) 300 mg/dL Negative A GLUCOSE UA (BEAKER) (test code = 365) 500 mg/dL Negative A KETONES UA (BEAKER) (test code = 371) 60 mg/dL Negative A BILIRUBIN UA (BEAKER) (test code = 462) Negative Negative BLOOD UA (BEAKER) (test code = 461) Moderate Negative A NITRITE UA (BEAKER) (test code = 465) Negative Negative LEUKOCYTE ESTERASE UA (BEAKER) (test code = 466) Large Negat nestor A UROBILINOGEN UA (BEAKER) (test code = 463) 0.2 mg/dL 0.2-1.0 RBC UA (BEAKER) (test code = 519) 17 /HPF WBC UA (BEAKER) (test code = 520) 2099 /HPF BACTERIA (BEAKER) (test code = 517) Moderate SOURCE(BEAKER) (test code = 2795) Circuit Board Repair Technician ID - HardikCT-GLUCOSE [id number] 07:58:00* Test Item Value Reference Range Interpretation Comments POC-GLUCOSE METER (BEAKER) (test code = 1538) 260 mg/dL 70-110 H : TESTED AT [facility] [address] 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 Signed: Zain Vazquez MDReport Verified Date/Time: 02/16/2020 07: 58:33 Reading Location: [address] Neuro Reading Room Electronically sign ed by: ZAIN VAZQUEZ M.D. on 02/16/2020 07:[address] brain without IV contrast 2020-02-16 07:58:00Interface, External Ris In - 02/16/2020 8:[address] Head without contrast CLINICAL HISTORY: [...] artery distribution infarct without hemorrhage. Signed: Zain Vazquez MDReport Verified Date/Time: 02/16/2020 07:58:33 Reading Location: [address] Neuro Reading Room [facility]it[facility] [id number] 06:53:00* Test Item Value Reference Range Interpretation Comments Vitamin B12 (test code = 2132-9) 548 pg/mL 213-816 NARCISA (test code = NARCISA) Circuit Board Repair Technician ID - ADELAIDA M Lab Interpretation (test code = 41707-9) Normal [facility]TSH/Free T4 If [id number] 06:53:00* Test Item Value Reference Range Interpretation Comments TSH (test code = 72860-1) 1.103 0.350- 4.940 uIU/mL NARCISA (test code = NARCISA) Circuit Board Repair Technician ID - ADELAIDA M Lab Interpretation (test code = 54691-3) Normal [facility] OaklandVITAMIN [id number] 06:53:00* Test Item Value Reference Range Interpretation Comments VITAMIN B12 (BEAKER) (test code = 774) 548 pg/mL 213-816 Circuit Board Repair Technician ID - ADELAIDA MTSH/FREE T4 IF [id number] 06:53:00* Test Item Value Reference Range Interpretation Comments THYROID STIMULATING HORMONE (BEAKER) (test code = 772) 1.103 uIU /mL 0.350-4.940 Circuit Board Repair Technician ID - ADELAIDA MPOCT-GLUCOSE [id number] 06:38:00* Test Item Value Reference Range Interpretation Comments POC-GLUCOSE METER (BEAKER) (test code = 1538) 254 mg/dL 70-110 H : TESTED AT [facility] [address] [place] [address], [address]: Circuit Board Repair Technician/Six Color Press Operator ID = [id number] for ERUM BARRIGA CBC W/PLT COUNT & AUTO [id number] 06:34:00* Test Item Value Reference Range Interpretation Comments WHITE BLOOD CELL COUNT (BEAKER) (test code = 775) 9.7 K/ L 3.5- 10.5 RED BLOOD CELL COUNT (BEAKER) (test code = 761) 3.88 M/ L 4.63-6 .08 L HEMOGLOBIN (BEAKER) (test code = 410) 9.8 GM/DL 13.7-17.5 L HEMATOCRIT (BEAKER) (test code = 411) 32.2 % 40.1-51.0 L MEAN CORPUSCULAR VOLUME (BEAKER) (test code = 753) 83.0 fL 79. 0-92.2 MEAN CORPUSCULAR HEMOGLOBIN (BEAKER) (test code = 751) 25.3 pg 25.7-32.2 L MEAN CORPUSCULAR HEMOGLOBIN CONC (BEAKER) (test code = 752) 30.4 GM/DL 32.3-36.5 L RED CELL DISTRIBUTION WIDTH (BEAKER) (test code = 412) 16.8 % 11.6-14.4 H PLATELET COUNT (BEAKER) (test code = 756) 276 K/CU MM 150-450 MEAN PLATELET VOLUME (BEAKER) (test code = 754) 8.9 fL 9.4-12 .4 L NUCLEATED RED BLOOD CELLS (BEAKER) (test code = 413) 0 /100 WBC 0 -0 NEUTROPHILS RELATIVE PERCENT (BEAKER) (test code = 429) 88 % LYMPHOCYTES RELATIVE PERCENT (BEAKER) (test code = 430) 4 % MONOCYTES RELATIVE PERCENT (BEAKER) (test code = 431) 8 % EOSINOPHILS RELATIVE PERCENT (BEAKER) (test code = 432) 0 % BASOPHILS RELATIVE PERCENT (BEAKER) (test code = 437) 0 % NEUTROPHILS ABSOLUTE COUNT (BEAKER) (test code = 670) 8.53 K/ L 1.78-5.38 H LYMPHOCYTES ABSOLUTE COUNT (BEAKER) (test code = 414) 0.39 K/ L 1.32-3.57 L MONOCYTES ABSOLUTE COUNT (BEAKER) (test code = 415) 0.75 K/ L 0. 30-0.82 EOSINOPHILS ABSOLUTE COUNT (BEAKER) (test code = 416) 0.01 K/ L 0.04-0.54 L BASOPHILS ABSOLUTE COUNT (BEAKER) (test code = 417) 0.01 K/ L 0. 01-0.08 IMMATURE GRANULOCYTES-RELATIVE PERCENT (BEAKER) (test code = 2801) 1 % 0-1 Fasting lipid [id number] 06:25:00* Test Item Value Reference Range Interpretation Comments Triglycerides (test code = 2571-8) 124 mg/dL Cholesterol (test code = 2093-3) 121 mg/dL HDL (test code = 2085-9) 38 mg/dL LDL Calculated (test code = 11050-6) 58 mg/dL NARCISA (test code = NARCISA) Triglyceride Reference Range : Low Risk <150 Borderline 150-199 High Risk 200-499 Very High Risk >=500 Cholesterol Reference Range: Low Risk <200 Borderline 200-239 High Risk >240 HDL Cholesterol Reference Range: Low Risk >=60 High Risk <40 LDL Cholesterol Reference Range: Optimal <100 Near Optimal 100-129 Borderline 130-159 High 160-189 Very High >=190 Circuit Board Repair Technician ID - ADELAIDA Giovanna [facility] OaklandLIPID [id number] 06:25:00* Test Item Value Reference Range Interpretation Comments TRIGLYCERIDES (BEAKER) (test code = 540) 124 mg/dL CHOLESTEROL (BEAKER) (test code = 631) 121 mg/dL HDL CHOLESTEROL (BEAKER) (test code = 976) 38 mg/dL LDL CHOLESTEROL CALCULATED (BEAKER) (test code = 633) 58 mg/dL Triglyceride Reference Range: Low Risk <150 Borderline 150-199 High Risk 200-499 Very High Risk >=500Cholesterol Reference Range: Low Risk <200 Borderline 200-239 High Risk >240HDL Cholesterol Reference Range: Low Risk >=60 High Risk <40LDL Cholesterol Reference Range: Optimal <100 Near Optimal 100-129 Borderline 130-159 High 160-189 Very High >=190 Circuit Board Repair Technician ID - ADELAIDA MBASIC METABOLIC [id number] 06:25:00* Test Item Value Reference Range Interpretation Comments SODIUM (BEAKER) (test code = 381) 141 meq/L 136-145 POTASSIUM (BEAKER) (test code = 379) 4.6 meq/L 3.5-5.1 CHLORIDE (BEAKER) (test code = 382) 109 meq/L 98-107 H CO2 (BEAKER) (test code = 355) 19 meq/L 22-29 L BLOOD UREA NITROGEN (BEAKER) (test code = 354) 37 mg/dL 7-21 H CREATININE (BEAKER) (test code = 358) 1.17 mg/dL 0.57-1.25 GLUCOSE RANDOM (BEAKER) (test code = 652) 257 mg/dL 70-105 H CALCIUM (BEAKER) (test code = 697) 8.6 mg/dL 8.4-10.2 EGFR (BEAKER) (test code = 1092) 60 mL/min/1.73 sq m ESTIMATED GFR IS NOT ACCURATE CREATININE CLEARANCE IN PREDICTING GLOMERULAR FILTRATION RATE. ESTIMATED GFR IS NOT APPLICABLE FOR DIALYSIS PATIENTS. Circuit Board Repair Technician ID - ADELAIDA MRAD, CHEST, 1 VIEW, NON [id number] 00:34:00Reason for exam:->s/p CVC placementShould this be performed at the bedside?->YesFINAL REPORT RAD, CHEST, 1 VIEW, NON DEPT INDICATION: s/p CVC placement COMPARISON: This examination. FINDINGS: Portable frontal view of the chest. IMPRESSION: Support Lines: Interval placement of right IJ central venous catheter tip overlying the cavoatrial junction. Lungs and pleura: Unchang ed airspace and pleural opacities. No pneumothorax.Heart and mediastinum: Stable contours. Additional findings: None. Signed: Diana Mandel Verif ied Date/Time: 02/16/2020 00:34:22 -GLUCOSE [id number] 00:13:00* Test Item Value Reference Range Interpretation Comments POC-GLUCOSE METER (BEAKER) (test code = 1538) 222 mg/dL 70-110 H : Notified RN/MD: TESTED AT [facility] [address] [facility], [address]: Circuit Board Repair Technician/Six Color Press Operator ID = [id number] for ERUM BARRIGA Troponin [id number] 19:50:00* Test Item Value Reference Range Interpretation Comments Troponin I (test code = 06953-4) <0.01 0-0.03 NARCISA (test code = NARCISA) Troponin I (TnI) levels must be interpreted in the context of the presenting symptoms and the clinical findings. Elevated TnI levels indicate myocardial damage, but are not specific for ischemic heart disease. Elevated TnI levels are seen in patients with other cardiac conditions (including myocarditis and congestive heart failure), and slight TnI elevations occur in patients with other conditions, including sepsis, renal failure, acidosis, acute neurological disease, and persistent tachyarrhythmia.Circuit Board Repair Technician ID - LA Lab Interpretation (test code = 02091-0) Normal [facility] OaklandTROPONIN [id number] 19:50:00* Test Item Value Reference Range Interpretation Comments TROPONIN I (BEAKER) (test code = 397) < ng/mL 0.00-0.03 Troponin I (TnI) levels must be interpreted in the context of the presenting sym ptoms and the clinical findings. Elevated TnI levels indicate myocardial damage, but are not specific for ischemic heart disease. Elevated TnI levels are seen in patients with other cardiac conditions (including myocarditis and congestive h eart failure), and slight TnI elevations occur in patients with other conditions , including sepsis, renal failure, acidosis, acute neurological disease, and per sistent tachyarrhythmia.Circuit Board Repair Technician ID - LACBC W/PLT COUNT & AUTO DIFFERENTIAL 2020-02-15 19:30:00* Test Item Value Reference Range Interpretation Comments WHITE BLOOD CELL COUNT (BEAKER) (test code = 775) 9.8 K/ L 3.5- 10.5 RED BLOOD CELL COUNT (BEAKER) (test code = 761) 3.91 M/ L 4.63-6 .08 L HEMOGLOBIN (BEAKER) (test code = 410) 10.0 GM/DL 13.7-17.5 L HEMATOCRIT (BEAKER) (test code = 411) 32.3 % 40.1-51.0 L MEAN CORPUSCULAR VOLUME (BEAKER) (test code = 753) 82.6 fL 79. 0-92.2 MEAN CORPUSCULAR HEMOGLOBIN (BEAKER) (test code = 751) 25.6 pg 25.7-32.2 L MEAN CORPUSCULAR HEMOGLOBIN CONC (BEAKER) (test code = 752) 31.0 GM/DL 32.3-36.5 L RED CELL DISTRIBUTION WIDTH (BEAKER) (test code = 412) 16.7 % 11.6-14.4 H PLATELET COUNT (BEAKER) (test code = 756) 264 K/CU MM 150-450 MEAN PLATELET VOLUME (BEAKER) (test code = 754) 8.9 fL 9.4-12 .4 L NUCLEATED RED BLOOD CELLS (BEAKER) (test code = 413) 0 /100 WBC 0 -0 NEUTROPHILS RELATIVE PERCENT (BEAKER) (test code = 429) 87 % LYMPHOCYTES RELATIVE PERCENT (BEAKER) (test code = 430) 4 % MONOCYTES RELATIVE PERCENT (BEAKER) (test code = 431) 8 % EOSINOPHILS RELATIVE PERCENT (BEAKER) (test code = 432) 0 % BASOPHILS RELATIVE PERCENT (BEAKER) (test code = 437) 0 % NEUTROPHILS ABSOLUTE COUNT (BEAKER) (test code = 670) 8.54 K/ L 1.78-5.38 H LYMPHOCYTES ABSOLUTE COUNT (BEAKER) (test code = 414) 0.41 K/ L 1.32-3.57 L MONOCYTES ABSOLUTE COUNT (BEAKER) (test code = 415) 0.76 K/ L 0. 30-0.82 EOSINOPHILS ABSOLUTE COUNT (BEAKER) (test code = 416) 0.00 K/ L 0.04-0.54 L BASOPHILS ABSOLUTE COUNT (BEAKER) (test code = 417) 0.01 K/ L 0. 01-0.08 IMMATURE GRANULOCYTES-RELATIVE PERCENT (BEAKER) (test code = 2801) 1 % 0-1 SARS-COV2/RT-PCR ([facility])2020-02-15 17:16:00* Test Item Value Reference Range Interpretation Comments SARS-COV2/RT-PCR (test code = 4026135) Negative N ot Detected, Negative, See external report for linked test SARS-COV-2 PERFORMING LAB (test code = 2453324) [facility] Negative result for this test determines that SARS-CoV-2 RNA was not present in the specimen above the Limit of Detection (LOD). However, Negative results do n ot preclude SARS-CoV-2 infection and should not be used as the sole basis for tr eatment or patient management decisions. Negative results must be combined with clinical observations, patient history, and epidemiological information. A false negative result may occur if a specimen is improperly collected, transported or handled. A false negative result should be considered if patient's recent expo sures or clinical presentation indicate that COVID-19 (SARS-CoV-2) is likely and diagnostic tests for other causes of illness are negative. Re-testing should be considered in cases of suspected false negatives.The limit of detection for this assay is 800 copies/mL.This SARS CoV-2 test is a real-time RT-PCR test intended for the qualitative detection of nucleic acid from SARS-CoV-2 in a nasopharyn geal swab specimen collected from individuals suspected of COVID-19 by their [facility] provider.This test has not been Food and Drug Administration (FDA) clear ed or approved. This is a modified version of an approved Emergency Use Authori zation (EUA) and is in the process of review by the FDA. Once authorized by [facility] FDA, the issued EUA will be effective until the declaration that circumstances exist justifying the authorization of the emergency use of in vitro diagnostic tests for detection and/or diagnosis of COVID-19 is terminated under Section 564 (b)(2) of the Act or the EUA is revoked under Section 564(g) of the Act.Fact She et for Healthcare Providers:https://www.[employer]/sites/default/files/product/d ocuments/Jhpr_Zhegh_IM_Mythtbsnd_Bfms_FIFV-WyB-6.pdfFact Sheet for Healthcare Pa jan:https://www.[employer]/sites/default/files/product/documents/Fact_Sheet_P ssigrbx_Njts_TOLB-SpT-2.pdfPerforming Laboratory:[facility] r[address] [place] [address].[place], [place] [address]ZRZX-ROBFFHC [id number] 15:12:00* Test Item Value Reference Range Interpretation Comments POC-GLUCOSE METER (BEAKER) (test code = 1538) 142 mg/dL 70-110 H : Notified RN/MD: TESTED AT [facility] [address] [facility], [address]: Circuit Board Repair Technician/Six Color Press Operator ID = [id number] for GARCIA LANCE PT/[id number] 12:10:00* Test Item Value Reference Range Interpretation Comments Protime (test code = 5902-2) 15.4 11.9- 14.2 seconds H INR (test code = 6301-6) 1.3 <=5.9 PTT (test code = 14348-2) 26.9 22.5- 36.0 seconds NARCISA (test code = NARCISA) Effective 12/06/2018: PT Refe rence Range ChangeNew: 11.9- 14.2 Previous: 11.7-14.7 RECOMMENDED COUMADIN/WARFARIN INR THERAPY RANGESSTANDARD DOSE: 2.0-3.0 Includes: PROPHYLAXIS for venous thrombosis, sys temic embolization; TREATMENT for venous thrombosis and/or pulmonary embolus.HIGH RISK: Target INR is 2.5-3.5 for patients wiht mechanical heart valves. Lab Interpretation (test code = 27094-1) Abnormal [facility][id number] 12:10:00* Test Item Value Reference Range Interpretation Comments PROTIME (BEAKER) (test code = 759) 15.4 seconds 11.9-14.2 H INR (BEAKER) (test code = 370) 1.3 <=5.9 PARTIAL THROMBOPLASTIN TIME (BEAKER) (test code = 760) 26.9 seconds 22.5-36.0 Effective 12/06/2018: PT Reference Range ChangeNew: 11.9-14.2 Previous: 11.7-14. 7RECOMMENDED COUMADIN/WARFARIN INR THERAPY RANGESSTANDARD DOSE: 2.0-3.0 Include s: PROPHYLAXIS for venous thrombosis, systemic embolization; TREATMENT for venou s thrombosis and/or pulmonary embolus.HIGH RISK: Target INR is 2.5-3.5 for patie nts wiht mechanical heart valves.RAD, CHEST, 2 [id number] 12:05:00Reason for exam:->cvaFINAL REPORT INDICATION: cva COMPARISON: November 2006 eight TECHNIQUE: Frontal and lateral views of the chest. IMPRESSION: There is diffuse interstitial congestion and left effusion. In the setting of cardiomegaly this is favored to represent cardiogenic edema. No pneumothorax. Signed: JR Ruth Robert MDReport Verified Date/Time: 02/15/2020 12:05:24 Reading Location: [facility] Radiology Reading Room chest 2 [id number] 12:05:00Interface, External Ris In - 02/15/2020 12:07 PM CDTFINAL REPORT INDICATION: cva COMPARISON: November 2006 eight TECHNIQUE: Frontal and lateral views of the chest. IMPRESSION: There is diffuse interstitial congestion and left effusion. In the setting of cardiomegaly this is favored to represent cardiogenic edema. No pneumothorax. Signed: JR Ruth Robert MDReport Verified Date/Time: 02/15/2020 12:05:24 Reading Location: [facility] Radiology Reading Room [facility] [id number] 11:59:00* Test Item Value Reference Range Interpretation Comments TROPONIN I (BEAKER) (test code = 397) < ng/mL 0.00-0.03 Troponin I (TnI) levels must be interpreted in the context of the presenting sym ptoms and the clinical findings. Elevated TnI levels indicate myocardial damage, but are not specific for ischemic heart disease. Elevated TnI levels are seen in patients with other cardiac conditions (including myocarditis and congestive h eart failure), and slight TnI elevations occur in patients with other conditions , including sepsis, renal failure, acidosis, acute neurological disease, and per sistent tachyarrhythmia.Circuit Board Repair Technician ID - DBComprehensive metabolic [id number] 11:55:00* Test Item Value Reference Range Interpretation Comments Protein, Total (test code = 2885-2) 6.9 6.0- 8.3 gm/dL Albumin (test code = 87158-8) 3.5 g/dL 3.5-5 Alkaline Phosphatase (test code = 6768-6) 102 U/L 40-150 Total Bilirubin (test code = 1975-2) 0.3 mg/dL 0.2-1.2 Sodium (test code = 2951-2) 137 meq/L 136-145 Potassium (test code = 2823-3) 4.2 meq/L 3.5-5.1 Chloride (test code = 2075-0) 107 meq/L 98-107 CO2 (test code = 2027-9) 20 meq/L 22-29 L BUN (test code = 3094-0) 44 mg/dL 7-21 H Creatinine (test code = 2160-0) 1.23 mg/dL 0.57-1.25 Glucose (test code = 2345-7) 122 mg/dL 70-105 H Calcium (test code = 38390-8) 8.7 mg/dL 8.4-10.2 AST (test code = 1920-8) 11 U/L 5-34 ALT (test code = 1742-6) 10 U/L 6-55 EGFR (test code = 84807-5) I NSUFFICIENT CLINICAL DATA TO CALCULATE ESTIMATED GFR. NARCISA (test code = NARCISA) Circuit Board Repair Technician ID - DB Lab Interpretation (test code = 31553-8) Abnormal [facility] [id number] 11:55:00* Test Item Value Reference Range Interpretation Comments TOTAL PROTEIN (BEAKER) (test code = 770) 6.9 gm/dL 6.0-8.3 ALBUMIN (BEAKER) (test code = 1145) 3.5 g/dL 3.5-5.0 ALKALINE PHOSPHATASE (BEAKER) (test code = 346) 102 U/L 40-150 BILIRUBIN TOTAL (BEAKER) (test code = 377) 0.3 mg/dL 0.2-1.2 SODIUM (BEAKER) (test code = 381) 137 meq/L 136-145 POTASSIUM (BEAKER) (test code = 379) 4.2 meq/L 3.5-5.1 CHLORIDE (BEAKER) (test code = 382) 107 meq/L 98-107 CO2 (BEAKER) (test code = 355) 20 meq/L 22-29 L BLOOD UREA NITROGEN (BEAKER) (test code = 354) 44 mg/dL 7-21 H CREATININE (BEAKER) (test code = 358) 1.23 mg/dL 0.57-1.25 GLUCOSE RANDOM (BEAKER) (test code = 652) 122 mg/dL 70-105 H CALCIUM (BEAKER) (test code = 697) 8.7 mg/dL 8.4-10.2 AST (SGOT) (BEAKER) (test code = 353) 11 U/L 5-34 ALT (SGPT) (BEAKER) (test code = 347) 10 U/L 6-55 EGFR (BEAKER) (test code = 1092) INSUFFICIENT CLINICAL DATA TO CALCULATE ESTIMATED GFR. Circuit Board Repair Technician ID - DBCBC W/PLT COUNT & AUTO [id number] 11:36:00* Test Item Value Reference Range Interpretation Comments WHITE BLOOD CELL COUNT (BEAKER) (test code = 775) 11.2 K/ L 3.5- 10.5 H RED BLOOD CELL COUNT (BEAKER) (test code = 761) 4.07 M/ L 4.63-6 .08 L HEMOGLOBIN (BEAKER) (test code = 410) 10.4 GM/DL 13.7-17.5 L HEMATOCRIT (BEAKER) (test code = 411) 33.3 % 40.1-51.0 L MEAN CORPUSCULAR VOLUME (BEAKER) (test code = 753) 81.8 fL 79. 0-92.2 MEAN CORPUSCULAR HEMOGLOBIN (BEAKER) (test code = 751) 25.6 pg 25.7-32.2 L MEAN CORPUSCULAR HEMOGLOBIN CONC (BEAKER) (test code = 752) 31.2 GM/DL 32.3-36.5 L RED CELL DISTRIBUTION WIDTH (BEAKER) (test code = 412) 16.6 % 11.6-14.4 H PLATELET COUNT (BEAKER) (test code = 756) 271 K/CU MM 150-450 MEAN PLATELET VOLUME (BEAKER) (test code = 754) 9.4 fL 9.4-12 .4 NUCLEATED RED BLOOD CELLS (BEAKER) (test code = 413) 0 /100 WBC 0 -0 NEUTROPHILS RELATIVE PERCENT (BEAKER) (test code = 429) 82 % LYMPHOCYTES RELATIVE PERCENT (BEAKER) (test code = 430) 7 % MONOCYTES RELATIVE PERCENT (BEAKER) (test code = 431) 11 % EOSINOPHILS RELATIVE PERCENT (BEAKER) (test code = 432) 0 % BASOPHILS RELATIVE PERCENT (BEAKER) (test code = 437) 0 % NEUTROPHILS ABSOLUTE COUNT (BEAKER) (test code = 670) 9.11 K/ L 1.78-5.38 H LYMPHOCYTES ABSOLUTE COUNT (BEAKER) (test code = 414) 0.75 K/ L 1.32-3.57 L MONOCYTES ABSOLUTE COUNT (BEAKER) (test code = 415) 1.20 K/ L 0. 30-0.82 H EOSINOPHILS ABSOLUTE COUNT (BEAKER) (test code = 416) 0.01 K/ L 0.04-0.54 L BASOPHILS ABSOLUTE COUNT (BEAKER) (test code = 417) 0.02 K/ L 0. 01-0.08 IMMATURE GRANULOCYTES-RELATIVE PERCENT (BEAKER) (test code = 2801) 1 % 0-1 CRITICAL [id number] 11:30:51Ross Andino MD 02/15/2020 9:38 PMCritical CarePerformed by: Ross Andino MDAuthorized by: Ross Andino MD Critical care time was exclusive of separately billable procedures and treating other patients and teaching time.Critical care was necessary to treat or prevent imminent or life-threatening deterioration of the following conditions: [employer] failure or compromise.Critical care was time spent personally by me on the following activities: blood draw for specimens, development of treatment plan with patient or surrogate, discussions with consultants, examination of patient, obtaining history from patient or surrogate, ordering and performing treatments and interventions, ordering and review of laboratory studies, ordering and review of radiographic studies, re-evaluation of patient's condition, pulse oximetry and review of old charts. [facility] CT[facility]IO [id number] 11:25:00FINAL REPORT CT, CAROTID, ANGIO, CT, CTANGIO BRAINBRAIN CT WITHOUT CONTRAST INDICATION: Neuro deficit, acute, stroke suspected COMPARISON: CT head of the same date TECHNIQUE:Rapid acquisition spiral images were obtained between the [...] dose to as low as reasonably achievable. FINDINGS:CTA BRAIN:Internal carotid arteries: Petrous, cavernous and supraclinoid portions patent. Middle cerebral arteries: Lack of contrast opacification of the distal left M1, suggestive of M1 occlusion. Right MCA M1-M2 branches demonstrate normal contrast enhancement.Anterior cerebral arteries: Bilateral FORREST A1-A2 branches demonstrate normal contrast enhancement.Basilar system: Normal contrast opacification of the vertebrobasilar system.Posterior cerebral arteries: Normal contrast opa cification of the bilateral MEDICAL PRACTICE ASSISTANT P1-P2 branches.Venous opacification: Major dural sinuses unremarkable for bolus timing.Additional findings: None. CTA NECK:Common carotid arteries: There is normal contrast opacification of the bilateral common carotid arteries.Cervical internal carotid arteries: 50-60% narrowing of the left proximal ICA secondary to calcific atherosclerotic plaque. Normal contrast opacification of the right cervical internal carotid arteries without significan t stenosis by NASCET criteria.Vertebral arteries: Normal contrast opacification of the bilateral cervical vertebral arteries.Arch anatomy: Conventional. Nonvasc ular findings:No acute findings within the neck soft tissues. IMPRESSION: Lack of contrast opacification of the distal left M1, suggestive of M1 occlusion. Th is represents large proximal vessel occlusion in consultation with neurovascular may be sought if desired. Discussed with ED staff by Dr. Alegria at time of th is dictation. Unremarkable CTA of the neck. Signed: Tamy Alegria MDReport Nikkie ified Date/Time: 02/15/2020 11:25:44 Reading Location: [facility] C013V Neuro Readi ng Room 11 :[address], CAROTID, [id number] 11:25:00FINAL REPORT CT, CAROTID, ANGIO, CT, CTANGIO BRAINBRAIN CT WITHOUT CONTRAST INDICATION: Neuro deficit, acute, stroke suspected COMPARISON: CT head of the same date TECHNIQUE:Rapid acquisition spiral images were obtained between the [...] dose to as low as reasonably achievable. FINDINGS:CTA BRAIN:Internal carotid arteries: Petrous, cavernous and supraclinoid portions patent. Middle cerebral arteries: Lack of contrast opacification of the distal left M1, suggestive of M1 occlusion. Right MCA M1-M2 branches demonstrate normal contrast enhancement.Anterior cerebral arteries: Bilateral FORREST A1-A2 branches demonstrate normal contrast enhancement.Basilar system: Normal contrast opacification of the vertebrobasilar system.Posterior cerebral arteries: Normal contrast opa cification of the bilateral MEDICAL PRACTICE ASSISTANT P1-P2 branches.Venous opacification: Major dural sinuses unremarkable for bolus timing.Additional findings: None. CTA NECK:Common carotid arteries: There is normal contrast opacification of the bilateral common carotid arteries.Cervical internal carotid arteries: 50-60% narrowing of the left proximal ICA secondary to calcific atherosclerotic plaque. Normal contrast opacification of the right cervical internal carotid arteries without significan t stenosis by NASCET criteria.Vertebral arteries: Normal contrast opacification of the bilateral cervical vertebral arteries.Arch anatomy: Conventional. Nonvasc ular findings:No acute findings within the neck soft tissues. IMPRESSION: Lack of contrast opacification of the distal left M1, suggestive of M1 occlusion. Th is represents large proximal vessel occlusion in consultation with neurovascular may be sought if desired. Discussed with ED staff by Dr. Alegria at time of th is dictation. Unremarkable CTA of the neck. Signed: Tamy Alegria MDReport Nikkie ified Date/Time: 02/15/2020 11:25:44 Reading Location: [facility] C013V Neuro Readi ng Room 11 :25 AM CTA [id number] 11:25:00Interface, External Ris In - 02/18/2020 12:[address], CAROTID, ANGIO, CT, CTANGIO BRAINBRAIN CT WITHOUT CONTRAST INDICATION: Neuro deficit, acute, stroke suspected COMPARISON: CT head of the same date TECHNIQUE:Rapid acquisition spiral images were obtained between the [...] dose to as low as reasonably achievable. FINDINGS:CTA BRAIN:Internal carotid arter ies: Petrous, cavernous and supraclinoid portions patent. Middle cerebral arteri es: Lack of contrast opacification of the distal left M1, suggestive of M1 occlu jose alberto. Right MCA M1-M2 branches demonstrate normal contrast enhancement.Anterior cerebral arteries: Bilateral FORREST A1-A2 branches demonstrate normal contrast enha ncement.Basilar system: Normal contrast opacification of the vertebrobasilar sys tem.Posterior cerebral arteries: Normal contrast opacification of the bilateral MEDICAL PRACTICE ASSISTANT P1-P2 branches.Venous opacification: Major dural sinuses unremarkable for jarocho tosin timing.Additional findings: None. CTA NECK:Common carotid arteries: There is normal contrast opacification of the bilateral common carotid arteries.Cervical internal carotid arteries: 50-60% narrowing of the left proximal ICA secondary to calcific atherosclerotic plaque. Normal contrast opacification of the right c ervical internal carotid arteries without significant stenosis by NASCET criteri a.Vertebral arteries: Normal contrast opacification of the bilateral cervical ve rtebral arteries.Arch anatomy: Conventional. Nonvascular findings:No acute findi ngs within the neck soft tissues. IMPRESSION: Lack of contrast opacification o f the distal left M1, suggestive of M1 occlusion. This represents large proximal vessel occlusion in consultation with neurovascular may be sought if desired. D iscussed with ED staff by Dr. Alegria at time of this dictation. Unremarkable C TA of the neck. Signed: Tamy Alegria MDReport Verified Date/Time: 02/15/2020 11:25:44 Reading Location: [address] Neuro Reading Room Electronically sign ed by: TAMY ALEGRIA MD on 02/15/2020 11:25 AM [facility] [id number] 11:25:00Interface, External Ris In - 02/15/2020 11:[address], CAROTID, ANGIO, CT, CTANGIO BRAINBRAIN CT WITHOUT CONTRAST INDICATION: Neuro deficit, acute, stroke suspected COMPARISON: CT head of the same date TECHNIQUE:Rapid acquisition spiral images were obtained between the [...] dose to as low as reasonably achievable. FINDINGS:CTA BRAIN:Internal carotid arter ies: Petrous, cavernous and supraclinoid portions patent. Middle cerebral arteri es: Lack of contrast opacification of the distal left M1, suggestive of M1 occlu jose alberto. Right MCA M1-M2 branches demonstrate normal contrast enhancement.Anterior cerebral arteries: Bilateral FORREST A1-A2 branches demonstrate normal contrast enha ncement.Basilar system: Normal contrast opacification of the vertebrobasilar sys tem.Posterior cerebral arteries: Normal contrast opacification of the bilateral MEDICAL PRACTICE ASSISTANT P1-P2 branches.Venous opacification: Major dural sinuses unremarkable for jarocho tosin timing.Additional findings: None. CTA NECK:Common carotid arteries: There is normal contrast opacification of the bilateral common carotid arteries.Cervical internal carotid arteries: 50-60% narrowing of the left proximal ICA secondary to calcific atherosclerotic plaque. Normal contrast opacification of the right c ervical internal carotid arteries without significant stenosis by NASCET criteri a.Vertebral arteries: Normal contrast opacification of the bilateral cervical ve rtebral arteries.Arch anatomy: Conventional. Nonvascular findings:No acute findi ngs within the neck soft tissues. IMPRESSION: Lack of contrast opacification o f the distal left M1, suggestive of M1 occlusion. This represents large proximal vessel occlusion in consultation with neurovascular may be sought if desired. D iscussed with ED staff by Dr. Alegria at time of this dictation. Unremarkable C TA of the neck. Signed: Tamy Alegria MDReport Verified Date/Time: 02/15/2020 11:25:44 Reading Location: [address] Neuro Reading Room Electronically sign ed by: TAMY ALEGRIA MD on 02/15/2020 11:25 AM [facility]stroke [id number] 10:42:00Interface, External Ris In - 02/15/2020 10:[address], BRAIN/STROKE PROTOCOL CLINICAL INDICATION: Stroke, follow upstroke COMPARISON: None TECHNIQUE: Noncontrast axial CT imaging of the brain and skull. DOSE REDUCTION: Dose modulation, iterative reconstruction, and/or weight-based adjustment of the mA/kV was utilized to reduce the radiation dose to as low as reasonably achievable. FINDINGS:No intracranial hemorrhage, midline shift or ma ss effect. Midline structures are normally developed. Mild chronic microvascular ischemic changes of the periventricular and subcortical white matter are presen t. No hydrocephalus. Orbits are within normal limits. Prior bilateral lens surge ry. Atherosclerotic calcification of the intracranial internal carotid and verte bral arteries. No obstructive paranasal sinus disease. IMPRESSION: No acute int racranial findings. Findings discussed with ED staff by Dr. Alegria at time of this dictation. If there is persistent clinical concern for intracranial patholo gy, MR examination is recommended for further characterization. Signed: Tamy Alegria Verified Date/Time: 02/15/2020 10:42:58 Reading Location: [address] Neuro Reading Room [facility]STROKE PROTOCOL 2020-02-15 10:42:00Reason for exam:->strokeWhat is the patient's sedation requirement?->No SedationFINAL REPORT CT, BRAIN/STROKE PROTOCOL CLINICAL INDICATION: Stroke, follow upstroke COMPARISON: None TECHNIQUE: Noncontrast axial CT imaging of the brain and skull. DOSE REDUCTION: Dose modulation, iterative reconstruction, and/or weight-based adjustment of the mA/kV was utilized to reduce the radiation dose to as low as reasonably achievable. FINDINGS:No intracranial hemorrhage, midline shift or mass effect. [...] Findings discussed with ED staff by Dr. Alegria at time of this dictation. If there is persistent clinical concern for intracranial pathology, MR examination is recommended for further charac terization. Signed: Tamy Alegria Verified Date/Time: 02/15/2020 10: 42:58 Reading Location: [address] Neuro Reading Room Capillary blood glucose measurement by glucometer (mass/volume)2020-01-04 10:16:00* Test Item Value Reference Range Interpretation Comments Bedside Glucose (test code = 06900-9) 86 70-120 Meter ID: [id number] Community HospitalBlood leukocytes automated count (number/volume)2020-01-01 12:25:00* Test Item Value Reference Range Interpretation Comments White Blood Count (test code = 6690-2) 6.34 4.8-10.8 [facility]Blood erythrocytes automated count (number/volume)2020-01-01 12:25:00* Test Item Value Reference Range Interpretation Comments Red Blood Count (test code = 789-8) 3.82 4.3-5.7 [facility] HospitalBlmadel[facility] hemoglobin measurement (moles/volume)2020-01-01 12:25:00* Test Item Value Reference Range Interpretation Comments Hemoglobin (test code = 75825-6) 9.7 14.0-18.0 [facility] HospitalAutomated blood hematocrit (volume fraction)2020-01-01 12:25:00* Test Item Value Reference Range Interpretation Comments Hematocrit (test code = 4544-3) 31.5 38.2-49.6 [facility] HospitalAutomated erythrocyte mean corpuscular bybuvx3627-59-97 12:25:00* Test Item Value Reference Range Interpretation Comments Mean Corpuscular Volume (test code = 787-2) 82.5 81-99 [facility] HospitalAutomated erythrocyte mean corpuscular hemoglobin (mass per erythrocyte)2020-01-01 12:25:00* Test Item Value Reference Range Interpretation Comments Mean Corpuscular Hemoglobin (test code = 785-6) 25.4 28-32 [facility] HospitalAutomated erythrocyte mean corpuscular hemoglobin concentration measurement (mass/volume)2020-01-01 12:25:00* Test Item Value Reference Range Interpretation Comments Mean Corpuscular Hemoglobin Concent (test code = 786-4) 30.8 31-35 [facility] HospitalRDW FxrLp-Rwi6157-13-23 12:25:00* Test Item Value Reference Range Interpretation Comments Red Cell Distribution Width (test code = 69596-2) 18.1 11.7 -14.4 [facility] HospitalAutomated blood platelet count (count/volume)2020-01-01 12:25:00* Test Item Value Reference Range Interpretation Comments Platelet Count (test code = 777-3) 211 140-360 [facility] HospitalAutomated blood segmented neutrophil count as percentage of total uxkvfytoii0932-45-98 12:25:00* Test Item Value Reference Range Interpretation Comments Neutrophils (%) (Auto) (test code = 50412-0) 73.7 38.7-80.0 [facility] HospitalAutomated blood lymphocyte count as percentage ot total rqgrrdpphu4270-34-21 12:25:00* Test Item Value Reference Range Interpretation Comments Lymphocytes (%) (Auto) (test code = 736-9) 11.8 18.0-39.1 [facility] HospitalAutomated blood monocyte count as percentage of total caaeggzafp4139-24-31 12:25:00* Test Item Value Reference Range Interpretation Comments Monocytes (%) (Auto) (test code = 5905-5) 11.7 4.4-11.3 [facility] HospitalAutomated blood eosinophil count as percentage of total rvzycgysbg3110-51-80 12:25:00* Test Item Value Reference Range Interpretation Comments Eosinophils (%) (Auto) (test code = 713-8) 2.2 0.0-6.0 [facility] HospitalAutomated blood basophil count as percentage of total vpemjqwmxy5516-89-74 12:25:00* Test Item Value Reference Range Interpretation Comments Basophils (%) (Auto) (test code = 706-2) 0.3 0.0-1.0 [facility] HospitalFluoroscopic procedure less than one hour etwsdmyk1841-14-36 12:25:00* Test Item Value Reference Range Interpretation Comments IM GRANULOCYTES % (test code = IM GRANULOCYTES %) 0.3 0.0- 1.0 [facility] HospitalAutomated blood neutrophil count 2020-01-01 12:25:00* Test Item Value Reference Range Interpretation Comments Neutrophils # (Auto) (test code = 751-8) 4.7 2.1-6.9 [facility] HospitalBlood lymphocytes count (number/volume) 2020-01-01 12:25:00* Test Item Value Reference Range Interpretation Comments Lymphocytes # (Auto) (test code = 73557-8) 0.8 1.0-3.2 [facility] HospitalBlood monocytes automated count (number/volume)2020-01-01 12:25:00* Test Item Value Reference Range Interpretation Comments Monocytes # (Auto) (test code = 742-7) 0.7 0.2-0.8 [facility] HospitalAutomated blood eosinophil count 2020-01-01 12:25:00* Test Item Value Reference Range Interpretation Comments Eosinophils # (Auto) (test code = 711-2) 0.1 0.0-0.4 [facility] HospitalAutomated blood basophil count (count/volume)2020-01-01 12:25:00* Test Item Value Reference Range Interpretation Comments Basophils # (Auto) (test code = 704-7) 0.0 0.0-0.1 [facility] HospitalFluoroscopic procedure less than one hour rwfcovtc2264-99-43 12:25:00* Test Item Value Reference Range Interpretation Comments Absolute Immature Granulocyte (auto (rodrick t code = Absolute Immature Granulocyte (auto) 0.02 0-0.1 [facility] Hospitalerum or plasma sodium measurement (moles/volume)2020-01-01 12:25:00* Test Item Value Reference Range Interpretation Comments Sodium Level (test code = 2951-2) 141 136-145 [facility] Hospitalerum or plasma potassium measurement (moles/volume)2020-01-01 12:25:00* Test Item Value Reference Range Interpretation Comments Potassium Level (test code = 2823-3) 3.6 3.5-5.1 [facility] Hospitalerum or plasma chloride measurement (moles/volume)2020-01-01 12:25:00* Test Item Value Reference Range Interpretation Comments Chloride Level (test code = 2075-0) 108 98-107 [facility] Hospitalerum or plasma carbon dioxide, total measurement (moles/volume)2020-01-01 12:25:00* Test Item Value Reference Range Interpretation Comments Carbon Dioxide Level (test code = 2028-9) 24 22-29 [facility] Hospitalerum or plasma anion xly6485-13-30 12:25:00* Test Item Value Reference Range Interpretation Comments Anion Gap (test code = 52229-2) 12.6 8-16 [facility] Hospitalerum or plasma urea nitrogen measurement (mass/volume)2020-01-01 12:25:00* Test Item Value Reference Range Interpretation Comments Blood Urea Nitrogen (test code = 3094-0) 15 7- [facility] Hospitalerum or plasma creatinine measurement (mass/volume)2020-01-01 12:25:00* Test Item Value Reference Range Interpretation Comments Creatinine (test code = 2160-0) 0.88 0.72-1.25 [facility] Hospitalerum or plasma urea nitrogen/creatinine mass vplay6045-61-29 12:25:00* Test Item Value Reference Range Interpretation Comments BUN/Creatinine Ratio (test code = 3097-3) 17 01-02 [facility] HospitalEstimated glomerular filtration rate (GFR) uichusheaqobg4498-75-05 12:25:00* Test Item Value Reference Range Interpretation Comments Estimat Glomerular Filtration Rate (test code = 142245694) > 60 >60 Ranges were taken from the National Kidney Disease Education Program and the [facility] Kid[facility] Foundation literature.Reference ranges:60 or greater: Eurtqt82-41 ( for 3 consecutive months): Chronic kidney disease 15 or less: Kidney failureColumbus Community HospitalGlucose fxxcbndluic0840-42-15 12:25:00* Test Item Value Reference Range Interpretation Comments Glucose Level (test code = HTL9696) 69 74-118 [facility] Hospitalerum or plasma calcium measurement (mass/volume)2020-01-01 12:25:00* Test Item Value Reference Range Interpretation Comments Calcium Level (test code = 44481-6) 8.7 8.4-10.2 [facility] HospitalFluoroscopic procedure less than one hour dhtogdrv3774-98-79 06:00:00* Test Item Value Reference Range Interpretation Comments Hemoglobin A1c Percent (test code = Hemoglobin A1c Percent) 7.6 4.0-7.0 [facility] HospitalFluoroscopic procedure less than one hour letrptrs1990-59-47 06:00:00* Test Item Value Reference Range Interpretation Comments Lactic Acid Level (test code = Lactic Acid Level) 1.3 0.5- 2.0 [facility] Hospitalerum or plasma thyrotropin measurement by detection limit <= 0.005 miu/l (units/volume)2019-12-29 06:00:00* Test Item Value Reference Range Interpretation Comments Thyroid Stimulating Hormone (TSH) (test code = 80634-6) 0.821 0.350-4.940 [facility] HospitalBlood gusvgyg9239-28-27 06:00:00* Test Item Value Reference Range Interpretation Comments Blood Culture (test code = 43159407) NO GROWTH AFTER 5 DAYS, FINAL REPORT [facility] HospitalCT ABDOMEN/PELVIS [id number] 01:31:00 [facility] [address] [address] Patient Name: LISA GLASER MR #: [id number] : 1940 Age/Sex: 79/M Req #: [id number] Adm Physician: ED SHETTY MD Ordered by: ED SHETTY MD Report #: [id number] [facility] Procedure: [id number] CT/CT ABDOMEN/P RONEL WO Exam Date: 12/28/19 [...] Bibasilar atelectasis. Patent airways. Pleura:Small/moderate left and small right pleural effusions. Cardiomediastinum: Calcifications of the [...] and calcific aortic valve disease. 3. Atrophic [place] kidneys. Perinephric fat stranding about the transplanted [...] COPY TO: ED SHETTY MD CT CHEST [id number] 01:31:00 [address] [place] [address] Patient Name: LISA GLASER MR #: [id number] : 1940 Age/Sex: 79/M Req #: [id number] Adm Physician: ED SHETTY MD Ordered by: ED SHETTY MD Report #: [id number] Location: MED/SURG3 Room/Bed: [facility] Procedure: [id number] CT/CT CHEST WO Exam Date: 12/28/19 Exam Time: 2359 REPORT STATUS: Signed EXAM: CT Chest, Abdomen and Pelvis WITHOUT contrast INDICATION: Fever, urinary [...] calcific aortic valve disease. 3. Atrop hic [place] kidneys. Perinephric fat stranding about the transplanted [...] AM Dictated By: MICHAEL VICENTE DO 4 Transcribed By: DEMOND on 12/29/19144 COPY TO: ED SHETTY MD Bacterial blood vkowwpb4605-21-95 23:40:00* Test Item Value Reference Range Interpretation Comments Blood Culture (test code = 600-7) KLEBSIELLA PNEUMONIAE-ESBL [facility] HospitalFluoroscopic procedure less than one hour ditxtytr5528-48-02 17:17:00* Test Item Value Reference Range Interpretation [...] complexity tests.Testing performed by [facility] [address] [id number] Director: Torrey Giron M.D.CLIA # [id number] Community HospitalUrine color pphvfvnmrkcql9862-07-71 14:50:00* Test Item Value Reference Range Interpretation Comments Urine Color (test code = 5778-6) YELLOW YELLOW [facility] HospitalUrine whyyspd6000-58-04 14:50:00* Test Item Value Reference Range Interpretation Comments Urine Clarity (test code = 70000-4) HAZY CLEAR [facility] Hospitalpecific gravity of Urine by Test strip 2019-12-28 14:50:00* Test Item Value Reference Range Interpretation Comments Urine Specific Gerber (test code = 5811-5) 1.015 1.010-1.02 5 [facility] HospitalUrine pH measurement by automated test yvkfe9705-93-98 14:50:00* Test Item Value Reference Range Interpretation Comments Urine pH (test code = 88824-8) 5.5 5-7 [facility] HospitalUrine leukocyte esterase detection by wqlmoxic2831-17-20 14:50:00* Test Item Value Reference Range Interpretation Comments Urine Leukocyte Esterase (test code = 5799-2) MODERATE NEGATIVE [facility] HospitalUrine nitrite rzuavjxmq8334-76-22 14:50:00* Test Item Value Reference Range Interpretation Comments Urine Nitrite (test code = 46528-2) NEGATIVE NEGATIVE [facility] HospitalUrine protein measurement by test strip (mass/volume)2019-12-28 14:50:00* Test Item Value Reference Range Interpretation Comments Urine Protein (test code = 5804-0) 2+ NEGATIVE [facility] HospitalUrine glucose ubtyihred1089-80-12 14:50:00* Test Item Value Reference Range Interpretation Comments Urine Glucose (UA) (test code = 2349-9) 2+ NEGATIVE [facility] HospitalUrine ketones detection by automated test opshz7117-74-60 14:50:00* Test Item Value Reference Range Interpretation Comments Urine Ketones (test code = 39635-4) NEGATIVE NEGATIVE [facility] HospitalUrine urobilinogen measurement by test strip (mass/volume)2019-12-28 14:50:00* Test Item Value Reference Range Interpretation Comments Urine Urobilinogen (test code = 36369-7) 0.2 0.2-1 [facility] HospitalUrine total bilirubin measurement (mass/volume)2019-12-28 14:50:00* Test Item Value Reference Range Interpretation Comments Urine Bilirubin (test code = 1978-6) NEGATIVE NEGATIVE [facility] HospitalUrine erythrocytes dadrokikq8246-26-06 14:50:00* Test Item Value Reference Range Interpretation Comments Urine Blood (test code = 08710-2) MODERATE NEGATIVE [facility] HospitalAutomated urine sediment leukocyte count by microscopy (number/high power field)2019-12-28 14:50:00* Test Item Value Reference Range Interpretation Comments Urine WBC (test code = 5821-4) >50 0-5 [facility] HospitalErythrocytes detection in urine sediment by light tcttjdeupw9262-79-75 14:50:00* Test Item Value Reference Range Interpretation Comments Urine RBC (test code = 88770-4) 6-10 0-5 [facility] HospitalBacteria detection in urine sediment by light kimcqbonzn4002-52-89 14:50:00* Test Item Value Reference Range Interpretation Comments Urine Bacteria (test code = 12350-2) MODERATE NONE [facility] HospitalEpithelial cells detection in urine sediment by light vcqnbmoete2829-16-30 14:50:00* Test Item Value Reference Range Interpretation Comments Urine Epithelial Cells (test code = 87658-7) NONE NONE [facility] Hospitalerum or plasma total bilirubin measurement (mass/volume)2019-12-28 13:15:00* Test Item Value Reference Range Interpretation Comments Total Bilirubin (test code = 1975-2) 0.7 0.2-1.2 [facility] HospitalFluoroscopic procedure less than one hour uuvgjhpt8357-90-04 13:15:00* Test Item Value Reference Range Interpretation Comments Aspartate Amino Transf (AST/SGOT) (test code = Aspartate Amino Transf (AST/SGOT)) 13 5-34 [facility] Hospitaler[facility] or plasma alanine aminotransferase measurement (enzymatic activity/volume)2019-12-28 13:15:00* Test Item Value Reference Range Interpretation Comments Alanine Aminotransferase (ALT/SGPT) (test code = 1742-6) 13 0-55 [facility] Hospitalerum or plasma protein measurement (mass/volume)2019-12-28 13:15:00* Test Item Value Reference Range Interpretation Comments Total Protein (test code = 2885-2) 6.5 6.5-8.1 [facility] Hospitalerum or plasma albumin measurement (mass/volume)2019-12-28 13:15:00* Test Item Value Reference Range Interpretation Comments Albumin (test code = 1751-7) 2.5 3.5-5.0 [facility] HospitalPlasma globulin measurement (mass/volume) 2019-12-28 13:15:00* Test Item Value Reference Range Interpretation Comments Globulin (test code = 24878-7) 4.0 2.3-3.5 [facility] Hospitalerum or plasma albumin/globulin mass gslid9547-89-43 13:15:00* Test Item Value Reference Range Interpretation Comments Albumin/Globulin Ratio (test code = 1759-0) 0.6 0.8-2.0 [facility] Hospitalerum or plasma alkaline phosphatase measurement (enzymatic activity/volume)2019-12-28 13:15:00* Test Item Value Reference Range Interpretation Comments Alkaline Phosphatase (test code = 6768-6) 124 40-150 [facility] HospitalGLUBED2020-05-04 16:37:00* Test Item Value Reference Range Interpretation Comments GLUBED (test code = GLUBED) 110 mg/dL 74-106 H Performed by certified train system operator at [facility] KMTWXE0817-93-50 11:55:00* Test Item Value Reference Range Interpretation Comments GLUBED (test code = GLUBED) 93 mg/dL 74-106 N Performed by certified train system operator at [facility] BKTGRP5501-33-26 07:31:00* Test Item Value Reference Range Interpretation Comments GLUBED (test code = GLUBED) 104 mg/dL 74-106 N Performed by certified train system operator at [facility] BASIC METABOLIC CPZYM5013-94-63 07:12:00* Test Item Value Reference Range Interpretation [...] CA) 8.5 mg/dL 8.5-10.1 N BASIC METABOLIC OLEUS0783-44-96 06:51:00* Test Item Value Reference Range Interpretation [...] code = CA) mg/dL 8.5-10.1 CBC W/AUTO [id number] 06:35:00* Test Item Value Reference Range Interpretation [...] DIFF REQUIRED (test code = MDIFF) NO [id number] 20:44:00* Test Item Value Reference Range Interpretation Comments GLUBED (test code = GLUBED) 212 mg/dL 74-106 H Performed by certified train system operator at [facility] UACRGK7863-51-44 16:44:00* Test Item Value Reference Range Interpretation Comments GLUBED (test code = GLUBED) 220 mg/dL 74-106 H Performed by certified train system operator at [facility] BUPJGM5771-17-21 12:03:00* Test Item Value Reference Range Interpretation Comments GLUBED (test code = GLUBED) 115 mg/dL 74-106 H Performed by certified train system operator at [facility] HUWPSK7087-00-61 07:50:00* Test Item Value Reference Range Interpretation Comments GLUBED (test code = GLUBED) 60 mg/dL 74-106 L Performed by certified train system operator at [facility] TUVMXF0788-79-43 20:18:00* Test Item Value Reference Range Interpretation Comments GLUBED (test code = GLUBED) 247 mg/dL 74-106 H Performed by certified train system operator at [facility] - XR CHEST 1 [id number] 19:22:00 FAX: Riley Kirk MD [phone] [place]: St: [facility] FAX: Curt Baig Fo Name: LISA GLASER [facility] : 1940 Age/S: 79/M [address] [facility] Unit #: [id number] Loc: V.3087 [place] [address] Phys: Rebecca AgBeyer Penathan Sotelo DO Acct: [id number] Dis Date: Status: ADM IN PHONE #: [phone] Exam Date: 11/10/2019 1845 FAX #: [phone] Reason: SOB/ LOW 02 EXAMS: CPT CODE: [id number] XR CHEST 1 V 23796 HISTORY: Shortness of breath. COMPARISON: None available. Location: TH. Left lower lobe segmental atelectasis with small effusion. Patchy infiltrate. Right lung is clear. Cardiomegaly. IMPRESSION: Patchy left lower lobe infiltrate with small effusion and segmental atelectasis. at 2 Reported and signed by: Talat Thorpe M.D. CC: Riley Stevens; Curt Ag DO Technologist: BENSON GRAY RT(R); JOLENE HURTADO RT(R) Trnscrd Date/Time/By: 11/10/2019 (0 83) : By: [email or web address] Orig Print D/T: S: 11/10/2019 (1924) PAGE 1 Signed Report [id number] 16:48:00* Test Item Value Reference Range Interpretation Comments GLUBED (test code = GLUBED) 239 mg/dL 74-106 H Performed by certified train system operator at [facility] [id number] 11:18:00* Test Item Value Reference Range Interpretation Comments GLUBED (test code = GLUBED) 199 mg/dL 74-106 H Performed by certified train system operator at [facility] FVAHVY6334-37-78 08:09:00* Test Item Value Reference Range Interpretation Comments GLUBED (test code = GLUBED) 246 mg/dL 74-106 H Performed by certified train system operator at [facility] BASIC METABOLIC [id number] 07:11:00* Test Item Value Reference Range Interpretation [...] CA) 8.1 mg/dL 8.5-10.1 L BASIC METABOLIC [id number] 07:03:00* Test Item Value Reference Range Interpretation [...] code = CA) mg/dL 8.5-10.1 CBC W/AUTO [id number] 06:25:00* Test Item Value Reference Range Interpretation [...] DIFF REQUIRED (test code = MDIFF) NO [id number] 21:24:00* Test Item Value Reference Range Interpretation Comments GLUBED (test code = GLUBED) 255 mg/dL 74-106 H Performed by certified train system operator at [facility] [id number] 16:27:00* Test Item Value Reference Range Interpretation Comments GLUBED (test code = GLUBED) 226 mg/dL 74-106 H Performed by certified train system operator at [facility] LZREAW7197-74-03 11:23:00* Test Item Value Reference Range Interpretation Comments GLUBED (test code = GLUBED) 226 mg/dL 74-106 H Performed by certified train system operator at [facility] [id number] 08:42:00* Test Item Value Reference Range Interpretation Comments GLUBED (test code = GLUBED) 226 mg/dL 74-106 H Performed by certified train system operator at [facility] CBC W/AUTO [id number] 05:56:00* Test Item Value Reference Range Interpretation [...] DIFF REQUIRED (test code = MDIFF) NO [id number] 20:20:00* Test Item Value Reference Range Interpretation Comments GLUBED (test code = GLUBED) 239 mg/dL 74-106 H Performed by certified train system operator at [facility] BASIC METABOLIC [id number] 16:40:00* Test Item Value Reference Range Interpretation [...] CA) 8.1 mg/dL 8.5-10.1 L BASIC METABOLIC [id number] 16:35:00* Test Item Value Reference Range Interpretation [...] code = CA) mg/dL 8.5-10.1 CBC W/AUTO [id number] 16:29:00* Test Item Value Reference Range Interpretation [...] DIFF REQUIRED (test code = MDIFF) NO [id number] 16:10:00* Test Item Value Reference Range Interpretation Comments GLUBED (test code = GLUBED) 157 mg/dL 74-106 H Performed by certified train system operator at [facility] URINALYSIS DSCWMRYZ9556-36-88 15:52:00* Test Item Value Reference Range Interpretation [...] MUCU) MODERATE #/LPF FEW A Urine Source? LcumppbjLPKPPU8432-96-88 14:25:00* Test Item Value Reference Range Interpretation Comments GLUBED (test code = GLUBED) 170 mg/dL 74-106 H Performed by certified train system operator at [facility] PBXYKD7994-56-50 12:24:00* Test Item Value Reference Range Interpretation Comments GLUBED (test code = GLUBED) 275 mg/dL 74-106 H Performed by certified train system operator at [facility] [id number] 07:42:00* Test Item Value Reference Range Interpretation Comments GLUBED (test code = GLUBED) 221 mg/dL 74-106 H Performed by certified train system operator at [facility] [id number] 02:33:00* Test Item Value Reference Range Interpretation Comments GLUBED (test code = GLUBED) 215 mg/dL 74-106 H Performed by certified train system operator at [facility] RJOZVZ4068-93-30 20:12:00* Test Item Value Reference Range Interpretation Comments GLUBED (test code = GLUBED) 207 mg/dL 74-106 H Performed by certified train system operator at [facility] [id number] 11:06:00* Test Item Value Reference Range Interpretation Comments GLUBED (test code = GLUBED) 155 mg/dL 74-106 H Performed by certified train system operator at [facility] [id number] 07:42:00* Test Item Value Reference Range Interpretation Comments GLUBED (test code = GLUBED) 206 mg/dL 74-106 H Performed by certified train system operator at [facility] [id number] 20:12:00* Test Item Value Reference Range Interpretation Comments GLUBED (test code = GLUBED) 205 mg/dL 74-106 H Performed by certified train system operator at [facility] [id number] 16:26:00* Test Item Value Reference Range Interpretation Comments GLUBED (test code = GLUBED) 244 mg/dL 74-106 H Performed by certified train system operator at [facility] PASVQD2590-24-12 11:35:00* Test Item Value Reference Range Interpretation Comments GLUBED (test code = GLUBED) 70 mg/dL 74-106 L Performed by certified train system operator at [facility] [id number] 08:07:00* Test Item Value Reference Range Interpretation Comments GLUBED (test code = GLUBED) 207 mg/dL 74-106 H Performed by certified train system operator at [facility] [id number] 20:39:00* Test Item Value Reference Range Interpretation Comments GLUBED (test code = GLUBED) 173 mg/dL 74-106 H Performed by certified train system operator at [facility] [id number] 15:45:00* Test Item Value Reference Range Interpretation Comments GLUBED (test code = GLUBED) 166 mg/dL 74-106 H Performed by certified train system operator at [facility] [id number] 11:15:00* Test Item Value Reference Range Interpretation Comments GLUBED (test code = GLUBED) 182 mg/dL 74-106 H Performed by certified train system operator at [facility] [id number] 07:16:00* Test Item Value Reference Range Interpretation Comments GLUBED (test code = GLUBED) 137 mg/dL 74-106 H Performed by certified train system operator at [facility] BASIC METABOLIC [id number] 06:46:00* Test Item Value Reference Range Interpretation [...] CA) 8.2 mg/dL 8.5-10.1 L BASIC METABOLIC [id number] 06:41:00* Test Item Value Reference Range Interpretation [...] CALCIUM (test code = CA) mg/dL 8.5-10.1 [id number] 20:25:00* Test Item Value Reference Range Interpretation Comments GLUBED (test code = GLUBED) 88 mg/dL 74-106 N Performed by certified train system operator at [facility] [id number] 16:06:00* Test Item Value Reference Range Interpretation Comments GLUBED (test code = GLUBED) 210 mg/dL 74-106 H Performed by certified train system operator at [facility] [id number] 11:17:00* Test Item Value Reference Range Interpretation Comments GLUBED (test code = GLUBED) 121 mg/dL 74-106 H Performed by certified train system operator at [facility] [id number] 07:42:00* Test Item Value Reference Range Interpretation Comments GLUBED (test code = GLUBED) 188 mg/dL 74-106 H Performed by certified train system operator at [facility] [id number] 20:15:00* Test Item Value Reference Range Interpretation Comments GLUBED (test code = GLUBED) 124 mg/dL 74-106 H Performed by certified train system operator at [facility] BASIC METABOLIC [id number] 16:26:00* Test Item Value Reference Range Interpretation [...] code = CA) 8.6 mg/dL 8.5-10.1 N [id number] 16:25:00* Test Item Value Reference Range Interpretation Comments GLUBED (test code = GLUBED) 167 mg/dL 74-106 H Performed by certified train system operator at [facility] CBC W/AUTO [id number] 16:17:00* Test Item Value Reference Range Interpretation [...] code = NRBC#) 0.00 K/mm3 0.0-0.1 N [id number] 14:19:00* Test Item Value Reference Range Interpretation Comments GLUBED (test code = GLUBED) 175 mg/dL 74-106 H Performed by certified train system operator at [facility] [id number] 12:15:00* Test Item Value Reference Range Interpretation Comments GLUBED (test code = GLUBED) 132 mg/dL 74-106 H Performed by certified train system operator at [facility] [id number] 08:12:00* Test Item Value Reference Range Interpretation Comments GLUBED (test code = GLUBED) 108 mg/dL 74-106 H Performed by certified train system operator at [facility] Prothrombin time (PT) in platelet poor plasma by coagulation ayzer2640-44-90 04:39:00* Test Item Value Reference Range Interpretation Comments Prothrombin Time (test code = 5902-2) 15.7 11.9-14.5 [facility] HospitalINR in Platelet poor plasma by Coagulation hjpzb2214-52-31 04:39:00* Test Item Value Reference Range Interpretation Comments Prothromb Time International Ratio (test code = 6301-6) 1.17 Oral Anticoagulant Therapy INR Values:1. Low Intensity Therapy 1.5 - 2.02 . Moderate Intensity Therapy 2.0 - 3.03. High Intensity Therapy(1) 2.5 - 3. 54. High Intensity Therapy(2) 3.0 - 4.05. Panic Value INR > 5.0 [facility] HospitalCHEST XRAY LINE [id number] 18:19:00 [facility] [address] [place] [address] Patient Name: LISA GLASER MR #: [id number] : 1940 Age/Sex: 79/M Req #: [id number] Adm Physician: ED SHETTY MD Ordered by: ED SHETTY MD Report #: [id number] Location: MED/SURG2 Room/Bed: [facility] Procedure: [id number] DX/C HEST XRAY LINE PLACEMENT Exam Date: 10/22/19 Exam Ti me: 1730 REPORT STATUS: Signed E XAMINATION: CHEST XRAY LINE PLACEMENT INDICATION: PICC L INE PLACEMENT [id number] COMPARISON: None FINDINGS: TUBES and LINES: Right peripherally inserted central venous catheter with dis luan tip over the low superior vena cava LUNGS: Airspace opacity in the left lung base worrisome for pneumonia. PLEURA: No pneumothorax. Possible small left pleural effusion. HEART AND MEDIASTINUM: The [...] MD 21 Transcribed By: DEMOND on 10/22/19 18 22 COPY TO: ED SHETTY MD Activated partial thromboplastin time (aPTT) in platelet poor plasma by coagulation ofjwh8916-73-70 05:40:00* Test Item Value Reference Range Interpretation Comments Activated Partial Thromboplast Time (test code = 88364-8) 33.1 23.8-35.5 [facility] HospitalPhosphorus cwazxdgdhqf5787-84-75 05:44:00 * Test Item Value Reference Range Interpretation Comments Phosphorus Level (test code = LKM8469) 2.2 2.3-4.7 [facility] HospitalBlood sirolimus level (mass/volume) 2019-10-21 05:44:00* Test Item Value Reference Range Interpretation Comments Rapamycin Level (test code = 23811-8) 5.8 3.0-20.0 Detection Limit = 1.0 Performed by LC/ MS-MS technology This test was developed and its performance c haracteristics determined by [facility]. It has not been cleared or approv ed by the Food and Drug Administration.Performed at: [facility] [address] [place], [place] [id number] Director: Dede Tsai MD , Phone: [phone] Community HospitalBlood cyclosporine measurement by immunoassay (mass/volume)2019-10-21 05:44:00* Test Item Value Reference Range Interpretation Comments Cyclosporine Level (test code = 49782-0) 35 100-400 Therapeutic: Renal Transplant 1 00 - 250 Liver Transplant 100 - 400 Cardiac Transplant 100 - 400 Bone Marrow 200 - 300 Detection Limit = 25Cyclosporine assay p erformed by [employer] CEDIAImmunoassay.If preferred testing methodology for cy closporine isLiquid Chromatography Tandem Mass Spectrometry(LC-MS/MS), please us e test code 695286. For testingperformed by Immunoassay, please use test code 70 6557.Performed at: [facility] Lab[address] [id number] b Director: Leo Saavedra PhD, Phone: [phone] [facility] HospitalUS RENAL RETROPERITONEAL [id number] 18:31:00 [place] [address] Patient Name: LISA GLASER MR #: [id number] : 1940 Age/Sex: 79/M Req #: [id number] Adm Physician: ED SHETTY MD Ordered by: JACEK LUDWIG MD Report #: [id number] Location: MED/SURG2 Room/Bed: [facility] Procedure: [id number] US/U S RENAL RETROPERITONEAL COMP Exam Date: 10/20/19 Les garcia Time: 1705 REPORT STATUS: Signed EXAM: Renal [...] transplant right lower quadrant kidney. Signed by: Dr. Dania Samuels M.D. on 10/20/2019 6:34 PM Dictated By: DANIA SAMUELS MD 33 COPY TO: JACEK LUDWIG MD Bedside Qksbipo9098-97-22 08:10:00* Test Item Value Reference Range Interpretation Comments Bedside Glucose (test code = 40148-7) 77 70-120 Meter ID: [id number] Behavioral Health Hospitalodium Level 2019-10-19 06:17:00* Test Item Value Reference Range Interpretation Comments Sodium Level (test code = 2951-2) 137 136-145 [facility] HospitalPotassium Zqutf1221-27-93 06:17:00* Test Item Value Reference Range Interpretation Comments Potassium Level (test code = 2823-3) 4.0 3.5-5.1 [facility] HospitalChloride Bpdyd1294-68-86 06:17:00* Test Item Value Reference Range Interpretation Comments Chloride Level (test code = 2075-0) 105 98-107 [facility] HospitalCarbon Dioxide Hbsrs3748-75-00 06:17:00* Test Item Value Reference Range Interpretation Comments Carbon Dioxide Level (test code = 2028-9) 24 22-29 [facility] HospitalAnion Bwh7544-71-70 06:17:00* Test Item Value Reference Range Interpretation Comments Anion Gap (test code = 37574-3) 12.0 8-16 [facility] HospitalBlood Urea Xqblbpwx4271-43-71 06:17:00* Test Item Value Reference Range Interpretation Comments Blood Urea Nitrogen (test code = 3094-0) 28 7-26 H [facility] HospitalCreatinine2020-04-10 06:17:00* Test Item Value Reference Range Interpretation Comments Creatinine (test code = 2160-0) 1.70 0.72-1.25 H [facility] HospitalBUN/Creatinine Hbwdt3368-00-12 06:17:00* Test Item Value Reference Range Interpretation Comments BUN/Creatinine Ratio (test code = 3097-3) 16 6-25 [facility] HospitalEstimat Glomerular Filtration Rate 2019-10-19 06:17:00* Test Item Value Reference Range Interpretation Comments Estimat Glomerular Filtration Rate (test code = 214116993) 39 >60 L Ranges were taken from the National Kidney Disease Education Program and the [facility] Foundation literature.Reference ranges:60 or greater: Rikbhv66-25 ( for 3 consecutive months): Chronic kidney disease 15 or less: Kidney failureColumbus Community HospitalGlucose Uebhg0439-22-62 06:17:00* Test Item Value Reference Range Interpretation Comments Glucose Level (test code = LIU1070) 89 74-118 [facility] HospitalCalcium Ptjic9494-14-49 06:17:00* Test Item Value Reference Range Interpretation Comments Calcium Level (test code = 97849-8) 8.1 8.4-10.2 L [facility] HospitalTotal Vhnxucyxa2926-17-82 06:17:00* Test Item Value Reference Range Interpretation Comments Total Bilirubin (test code = 1975-2) 0.3 0.2-1.2 [facility] HospitalAspartate Amino Transf (AST/SGOT) 2019-10-19 06:17:00* Test Item Value Reference Range Interpretation Comments Aspartate Amino Transf (AST/SGOT) (test code = Aspartate Amino Transf (AST/SGOT)) 13 5-34 [facility] HospitalAlanine Aminotransferase (ALT/SGPT) 2019-10-19 06:17:00* Test Item Value Reference Range Interpretation Comments Alanine Aminotransferase (ALT/SGPT) (test code = 1742-6) 7 0-55 [facility] HospitalTotal Fdnbvlc2936-78-31 06:17:00* Test Item Value Reference Range Interpretation Comments Total Protein (test code = 2885-2) 6.2 6.5-8.1 L [facility] HospitalAlbumin2020-04-10 06:17:00* Test Item Value Reference Range Interpretation Comments Albumin (test code = 1751-7) 2.1 3.5-5.0 L [facility] HospitalGlobulin2020-04-10 06:17:00* Test Item Value Reference Range Interpretation Comments Globulin (test code = 37259-8) 4.1 2.3-3.5 H [facility] HospitalAlbumin/Globulin Hyuir5621-85-49 06:17:00 * Test Item Value Reference Range Interpretation Comments Albumin/Globulin Ratio (test code = 1759-0) 0.5 0.8-2.0 L [facility] HospitalAlkaline Hbwuzanmyeq5947-60-68 06:17:00* Test Item Value Reference Range Interpretation Comments Alkaline Phosphatase (test code = 6768-6) 85 40-150 [facility] HospitalBlood Takmauv5098-93-25 12:26:00* Test Item Value Reference Range Interpretation Comments Blood Culture (test code = 00996121) NO GROWTH AFTER 24 HOURS [facility] HospitalHemoglobin A1c Kabwasn8525-66-99 11:00:00 * Test Item Value Reference Range Interpretation Comments Hemoglobin A1c Percent (test code = Hemoglobin A1c Percent) 7.9 4.0-7.0 H [facility] HospitalThyroid Stimulating Hormone (TSH) 2019-10-18 07:43:00* Test Item Value Reference Range Interpretation Comments Thyroid Stimulating Hormone (TSH) (test code = 17313-4) 0.878 0.350-4.940 [facility] HospitalWhite Blood Vlyoh0886-52-02 06:38:00* Test Item Value Reference Range Interpretation Comments White Blood Count (test code = 6690-2) 12.13 4.8-10.8 H [facility] HospitalRed Blood Flsmb2968-92-19 06:38:00* Test Item Value Reference Range Interpretation Comments Red Blood Count (test code = 789-8) 4.13 4.3-5.7 L [facility] HospitalHemoglobin2020-04-09 06:38:00* Test Item Value Reference Range Interpretation Comments Hemoglobin (test code = 90287-5) 11.3 14.0-18.0 L [facility] HospitalHematocrit2020-04-09 06:38:00* Test Item Value Reference Range Interpretation Comments Hematocrit (test code = 4544-3) 34.8 38.2-49.6 L [facility] HospitalMean Corpuscular Ozoocy8523-99-96 06:38:00* Test Item Value Reference Range Interpretation Comments Mean Corpuscular Volume (test code = 787-2) 84.3 81-99 [facility] HospitalMean Corpuscular Zughypnxuc7083-60-87 06:38:00* Test Item Value Reference Range Interpretation Comments Mean Corpuscular Hemoglobin (test code = 785-6) 27.4 28-32 L [facility] HospitalMean Corpuscular Hemoglobin Concent 2019-10-18 06:38:00* Test Item Value Reference Range Interpretation Comments Mean Corpuscular Hemoglobin Concent (test code = 786-4) 32.5 31-35 [facility] HospitalRed Cell Distribution Ykypt1021-00-75 06:38:00* Test Item Value Reference Range Interpretation Comments Red Cell Distribution Width (test code = 02659-0) 12.8 11.7 -14.4 [facility] HospitalPlatelet Rridd9464-66-42 06:38:00* Test Item Value Reference Range Interpretation Comments Platelet Count (test code = 777-3) 300 140-360 [facility] HospitalNeutrophils (%) (Auto)2019-10-18 06:38:00 * Test Item Value Reference Range Interpretation Comments Neutrophils (%) (Auto) (test code = 62975-1) 79.1 38.7-80.0 [facility] HospitalLymphocytes (%) (Auto)2019-10-18 06:38:00 * Test Item Value Reference Range Interpretation Comments Lymphocytes (%) (Auto) (test code = 736-9) 7.9 18.0-39.1 L [facility] HospitalMonocytes (%) (Auto)2019-10-18 06:38:00* Test Item Value Reference Range Interpretation Comments Monocytes (%) (Auto) (test code = 5905-5) 12.0 4.4-11.3 H [facility] HospitalEosinophils (%) (Auto)2019-10-18 06:38:00 * Test Item Value Reference Range Interpretation Comments Eosinophils (%) (Auto) (test code = 713-8) 0.2 0.0-6.0 [facility] [facility] (Auto)2019-10-18 06:38:00* Test Item Value Reference Range Interpretation Comments Basophils (%) (Auto) (test code = 706-2) 0.2 0.0-1.0 [facility] HospitalIM GRANULOCYTES %2019-10-18 06:38:00* Test Item Value Reference Range Interpretation Comments IM GRANULOCYTES % (test code = IM GRANULOCYTES %) 0.6 0.0- 1.0 [facility] HospitalNeutrophils # (Auto)2019-10-18 06:38:00* Test Item Value Reference Range Interpretation Comments Neutrophils # (Auto) (test code = 751-8) 9.6 2.1-6.9 H [facility] HospitalLymphocytes # (Auto)2019-10-18 06:38:00* Test Item Value Reference Range Interpretation Comments Lymphocytes # (Auto) (test code = 18135-0) 1.0 1.0-3.2 [facility] HospitalMonocytes # (Auto)2019-10-18 06:38:00* Test Item Value Reference Range Interpretation Comments Monocytes # (Auto) (test code = 742-7) 1.5 0.2-0.8 H [facility] HospitalEosinophils # (Auto)2019-10-18 06:38:00* Test Item Value Reference Range Interpretation Comments Eosinophils # (Auto) (test code = 711-2) 0.0 0.0-0.4 [facility] HospitalBasophils # (Auto)2019-10-18 06:38:00* Test Item Value Reference Range Interpretation Comments Basophils # (Auto) (test code = 704-7) 0.0 0.0-0.1 [facility] HospitalAbsolute Immature Granulocyte (auto 2019-10-18 06:38:00* Test Item Value Reference Range Interpretation Comments Absolute Immature Granulocyte (auto (rodrick t code = Absolute Immature Granulocyte (auto) 0.07 0-0.1 [facility] HospitalCreatine Ybekjr6349-74-11 20:52:00* Test Item Value Reference Range Interpretation Comments Creatine Kinase (test code = 2157-6) 78 30-200 [facility] HospitalCreatine Kinase SA2100-16-76 20:52:00* Test Item Value Reference Range Interpretation Comments Creatine Kinase MB (test code = 54017-7) 1.20 0-5.0 [facility] HospitalTroponin B8391-84-54 20:52:00* Test Item Value Reference Range Interpretation Comments Troponin I (test code = 59512-6) < 0.001 0-0.300 [facility] or plasma creatine kinase measurement (enzymatic activity/volume)2019-10-17 20:00:00* Test Item Value Reference Range Interpretation Comments Creatine Kinase (test code = 2157-6) 78 30-200 [facility] Hospitalerum or plasma creatine kinase MB measurement (mass/volume)2019-10-17 20:00:00* Test Item Value Reference Range Interpretation Comments Creatine Kinase MB (test code = 52037-7) 1.20 0-5.0 [facility] HospitalTroponin I measurement by highly sensitive enzyme hyhenuzihef2451-39-79 20:00:00* Test Item Value Reference Range Interpretation Comments Troponin I (test code = 36024-2) < 0.001 0-0.300 [facility] HospitalFOOT RIGHT HGESANKO9205-59-78 12:54:00 [facility] [address] [address] Patient Name: LISA GLASER MR #: [id number] : 1940 Age/Sex: 79/M Req #: [id number] Adm Physician: Ordered by: WONG CARRERA MD Report #: [id number] Location: ER Room/Bed: Procedure: [id number] D X/FOOT RIGHT COMPLETE Exam Date: 10/17/19 [...] 12:56 PM Dictated By: BLAINE LATIF MD 1256 COPY TO: DANIEL CARRERA RD, MD Prothrombin Lwls3261-95-59 12:46:00* Test Item Value Reference Range Interpretation Comments Prothrombin Time (test code = 5902-2) 14.4 11.9-14.5 [facility] HospitalProthromb Time International Ratio 2019-10-17 12:46:00* Test Item Value Reference Range Interpretation Comments Prothromb Time International Ratio (test code = 6301-6) 1.05 Oral Anticoagulant Therapy INR Values:1. Low Intensity Therapy 1.5 - 2.02 . Moderate Intensity Therapy 2.0 - 3.03. High Intensity Therapy(1) 2.5 - 3. 54. High Intensity Therapy(2) 3.0 - 4.05. Panic Value INR > 5.0 [facility] HospitalActivated Partial Thromboplast Time 2019-10-17 12:46:00* Test Item Value Reference Range Interpretation Comments Activated Partial Thromboplast Time (test code = 60740-4) 41.3 23.8-35.5 H [facility] HospitalFOOT RIGHT AP NKB5931-27-08 08:30:00 [facility] [address] [address] Patient Name: LISA GLASER MR #: [id number] : 1940 Age/Sex: 78/M Req #: [id number] Adm Physician: Ordered by: FUENTES DAVE DPGiovanna Report #: [id number] Location: OR Room/Bed: Procedure: [id number] DX/ FOOT RIGHT AP LAT Exam Date: [...] COPY TO: FUENTES MUKHERJEE DPM CHEST 2 VQYDA3848-12-67 11:04:00 [address] [address] Patient Name: LISA GLASER MR #: [id number] : 1940 Age/Sex: 78/M Req #: [id number] Adm Physician: Ordered by: FUENTES DAVE DPM Report #: [id number] Location: OR Room/Bed: Procedure: [id number] DX/ CHEST 2 VIEWS Exam Date: 10/19/18 [...] 10/19 COPY TO: FUENTES DAVE DPM Bedside Gsawsih3618-07-73 12:05:00* Test Item Value Reference Range Interpretation Comments Bedside Glucose (test code = 35231-9) 73 70-120 Meter ID: [id number] [facility] 2018-09-16 10:17:00* Test Item Value Reference Range Interpretation Comments Wound Culture (test code = 6462-6) Organism: GRAM NEGATIVE RONDA [facility] HospitalWhite Blood Nmdfo9481-28-84 09:32:00* Test Item Value Reference Range Interpretation Comments White Blood Count (test code = 6690-2) 10.35 4.8-10.8 [facility] HospitalRed Blood Qnrsi1537-41-13 09:32:00* Test Item Value Reference Range Interpretation Comments Red Blood Count (test code = 789-8) 4.28 4.3-5.7 L [facility] HospitalHemoglobin2019-03-09 09:32:00* Test Item Value Reference Range Interpretation Comments Hemoglobin (test code = 27912-2) 12.1 14.0-18.0 L [facility] HospitalHematocrit2019-03-09 09:32:00* Test Item Value Reference Range Interpretation Comments Hematocrit (test code = 4544-3) 35.6 38.2-49.6 L [facility] HospitalMean Corpuscular Ifjixa1636-83-46 09:32:00* Test Item Value Reference Range Interpretation Comments Mean Corpuscular Volume (test code = 787-2) 83.2 81-99 [facility] HospitalMean Corpuscular Urassaeodu0886-83-53 09:32:00* Test Item Value Reference Range Interpretation Comments Mean Corpuscular Hemoglobin (test code = 785-6) 28.3 28-32 [facility] HospitalMean Corpuscular Hemoglobin Concent 2018-09-16 09:32:00* Test Item Value Reference Range Interpretation Comments Mean Corpuscular Hemoglobin Concent (test code = 786-4) 34.0 31-35 [facility] HospitalRed Cell Distribution Hahan5996-82-82 09:32:00* Test Item Value Reference Range Interpretation Comments Red Cell Distribution Width (test code = 81485-4) 13.6 11.7 -14.4 [facility] HospitalPlatelet Qbjol7833-65-47 09:32:00* Test Item Value Reference Range Interpretation Comments Platelet Count (test code = 777-3) 277 140-360 [facility] HospitalNeutrophils (%) (Auto)2018-09-16 09:32:00 * Test Item Value Reference Range Interpretation Comments Neutrophils (%) (Auto) (test code = 37472-1) 76.7 38.7-80.0 [facility] HospitalLymphocytes (%) (Auto)2018-09-16 09:32:00 * Test Item Value Reference Range Interpretation Comments Lymphocytes (%) (Auto) (test code = 736-9) 6.2 18.0-39.1 L [facility] HospitalMonocytes (%) (Auto)2018-09-16 09:32:00* Test Item Value Reference Range Interpretation Comments Monocytes (%) (Auto) (test code = 5905-5) 14.6 4.4-11.3 H [facility] HospitalEosinophils (%) (Auto)2018-09-16 09:32:00 * Test Item Value Reference Range Interpretation Comments Eosinophils (%) (Auto) (test code = 713-8) 1.0 0.0-6.0 [facility] HospitalBasophils (%) (Auto)2018-09-16 09:32:00* Test Item Value Reference Range Interpretation Comments Basophils (%) (Auto) (test code = 706-2) 0.5 0.0-1.0 [facility] HospitalIM GRANULOCYTES %2018-09-16 09:32:00* Test Item Value Reference Range Interpretation Comments IM GRANULOCYTES % (test code = IM GRANULOCYTES %) 1.0 0.0- 1.0 [facility] HospitalNeutrophils # (Auto)2018-09-16 09:32:00* Test Item Value Reference Range Interpretation Comments Neutrophils # (Auto) (test code = 751-8) 8.0 2.1-6.9 H [facility] HospitalLymphocytes # (Auto)2018-09-16 09:32:00* Test Item Value Reference Range Interpretation Comments Lymphocytes # (Auto) (test code = 84403-2) 0.6 1.0-3.2 L [facility] HospitalMonocytes # (Auto)2018-09-16 09:32:00* Test Item Value Reference Range Interpretation Comments Monocytes # (Auto) (test code = 742-7) 1.5 0.2-0.8 H [facility] HospitalEosinophils # (Auto)2018-09-16 09:32:00* Test Item Value Reference Range Interpretation Comments Eosinophils # (Auto) (test code = 711-2) 0.1 0.0-0.4 [facility] HospitalBasophils # (Auto)2018-09-16 09:32:00* Test Item Value Reference Range Interpretation Comments Basophils # (Auto) (test code = 704-7) 0.1 0.0-0.1 [facility] HospitalAbsolute Immature Granulocyte (auto 2018-09-16 09:32:00* Test Item Value Reference Range Interpretation Comments Absolute Immature Granulocyte (auto (rodrick t code = Absolute Immature Granulocyte (auto) 0.10 0-0.1 [facility] Hospitalodium Noxlq9519-18-35 07:14:00* Test Item Value Reference Range Interpretation Comments Sodium Level (test code = 2951-2) 136 136-145 [facility] HospitalPotassium Acwqp7023-18-18 07:14:00* Test Item Value Reference Range Interpretation Comments Potassium Level (test code = 2823-3) 3.9 3.5-5.1 [facility] HospitalChloride Bkjkd5399-23-52 07:14:00* Test Item Value Reference Range Interpretation Comments Chloride Level (test code = 2075-0) 108 98-107 H [facility] HospitalCarbon Dioxide Rpbcs7393-59-39 07:14:00* Test Item Value Reference Range Interpretation Comments Carbon Dioxide Level (test code = 2028-9) 19 22-29 L [facility] HospitalAnion Dxo1003-63-34 07:14:00* Test Item Value Reference Range Interpretation Comments Anion Gap (test code = 21012-8) 12.9 8-16 [facility] HospitalBlood Urea Kezsmidb0807-74-48 07:14:00* Test Item Value Reference Range Interpretation Comments Blood Urea Nitrogen (test code = 3094-0) 16 7-26 [facility] HospitalCreatinine2019-03-09 07:14:00* Test Item Value Reference Range Interpretation Comments Creatinine (test code = 2160-0) 0.78 0.72-1.25 [facility] HospitalBUN/Creatinine Rwjyo8912-25-40 07:14:00* Test Item Value Reference Range Interpretation Comments BUN/Creatinine Ratio (test code = 3097-3) 21 6-25 [facility] HospitalEstimat Glomerular Filtration Rate 2018-09-16 07:14:00* Test Item Value Reference Range Interpretation Comments Estimat Glomerular Filtration Rate (test code = 825979114) > 60 >60 Ranges were taken from the National Kidney Disease Education Program and the [facility] [employer] literature.Reference ranges:60 or greater: Qipviu07-05 ( for 3 consecutive months): Chronic kidney disease 15 or less: Kidney failureColumbus Community HospitalGlucose Gfxqr6749-61-64 07:14:00* Test Item Value Reference Range Interpretation Comments Glucose Level (test code = WWO7242) 77 74-118 [facility] HospitalCalcium Okfjm2413-62-57 07:14:00* Test Item Value Reference Range Interpretation Comments Calcium Level (test code = 19859-2) 8.5 8.4-10.2 [facility] HospitalFOOT RIGHT AP WMO2358-01-81 10:13:00 [facility] [address] [address] Patient Name: LISA GLASER MR #: [id number] : 1940 Age/Sex: 78/M Req #: [id number] Adm Physician: ED SHETTY MD Ordered by: FUENTES DAVE DPGiovanna Report #: [id number] Location: MED/SURG3 Room/Bed: 2851 Procedure: [id number] DX/ FOOT RIGHT AP LAT Exam Date: [...] mazariegos 09/15/18 1020 COPY TO: FUENTES DAVE DPM Total Bilirubin 2018-09-13 07:28:00* Test Item Value Reference Range Interpretation Comments Total Bilirubin (test code = 1975-2) 0.3 0.2-1.2 [facility] HospitalAspartate Amino Transf (AST/SGOT) 2018-09-13 07:28:00* Test Item Value Reference Range Interpretation Comments Aspartate Amino Transf (AST/SGOT) (test code = Aspartate Amino Transf (AST/SGOT)) 15 5-34 [facility] HospitalAlanine Aminotransferase (ALT/SGPT) 2018-09-13 07:28:00* Test Item Value Reference Range Interpretation Comments Alanine Aminotransferase (ALT/SGPT) (test code = 1742-6) 18 0-55 [facility] HospitalTotal Mprtmou7674-72-40 07:28:00* Test Item Value Reference Range Interpretation Comments Total Protein (test code = 2885-2) 6.5 6.5-8.1 [facility] HospitalAlbumin2019-03-06 07:28:00* Test Item Value Reference Range Interpretation Comments Albumin (test code = 1751-7) 2.7 3.5-5.0 L [facility] HospitalGlobulin2019-03-06 07:28:00* Test Item Value Reference Range Interpretation Comments Globulin (test code = 99700-6) 3.8 2.3-3.5 H [facility] HospitalAlbumin/Globulin Fkvks8123-20-48 07:28:00 * Test Item Value Reference Range Interpretation Comments Albumin/Globulin Ratio (test code = 1759-0) 0.7 0.8-2.0 L [facility] HospitalAlkaline Mxgavxgeimp4601-17-99 07:28:00* Test Item Value Reference Range Interpretation Comments Alkaline Phosphatase (test code = 6768-6) 90 40-150 [facility] HospitalPhosphorus Hucmp7650-46-65 06:36:00* Test Item Value Reference Range Interpretation Comments Phosphorus Level (test code = JOD5277) 3.4 2.3-4.7 [facility] HospitalMagnesium Libqr4778-61-65 06:36:00* Test Item Value Reference Range Interpretation Comments Magnesium Level (test code = 30277-4) 1.8 1.3-2.1 [facility] HospitalCHEST 2 UGTWR4843-03-24 09:47:00 [facility] [address] [address] Patient Name: LISA GLASER MR #: [id number] : 1940 Age/Sex: 78/M Req #: [id number] Adm Physician: ED SHETTY MD Ordered by: ED SHETTY MD Report #: [id number] Location: MED/SURG3 Room/Bed: [facility] Procedure: [id number] DX/C HEST 2 VIEWS Exam Date: 09/10/18 [...] 09/10/18947 COPY TO: ED SHETTY MD Prothrombin Zrbr5017-60-55 06:26:00* Test Item Value Reference Range Interpretation Comments Prothrombin Time (test code = 5902-2) 13.0 11.9-14.5 [facility] HospitalProthromb Time International Ratio 2018-09-10 06:26:00* Test Item Value Reference Range Interpretation Comments Prothromb Time International Ratio (test code = 6301-6) 0.93 Oral Anticoagulant Therapy INR Values:1. Low Intensity Therapy 1.5 - 2.02 . Moderate Intensity Therapy 2.0 - 3.03. High Intensity Therapy(1) 2.5 - 3. 54. High Intensity Therapy(2) 3.0 - 4.05. Panic Value INR > 5.0 [facility] HospitalVancomycin Level Hpvyjm5012-33-10 12:09:00* Test Item Value Reference Range Interpretation Comments Vancomycin Level Trough (test code = 4092-3) 8.9 5.0-10.0 [facility] HospitalRapamycin Mbyhz6284-38-72 08:52:00* Test Item Value Reference Range Interpretation Comments Rapamycin Level (test code = 61383-3) 1.4 3.0-20.0 L Detection Limit = 1.0 Performed by LC/ MS-MS technology This test was developed and its performance c haracteristics determined by [employer]. It has not been cleared or approv ed by the Food and Drug Administration.Performed at: [facility] [employer] [id number] Director: Dede Tsai MD , Phone: [phone] Community HospitalCyclosporine Level 2018-09-08 05:46:00* Test Item Value Reference Range Interpretation Comments Cyclosporine Level (test code = 66162-3) 25 100-400 L Therapeutic: Renal Transplant 1 00 - 250 Liver Transplant 100 - 400 Cardiac Transplant 100 - 400 Bone Marrow 200 - 300 Detection Limit = 25Cyclosporine assay p erformed by [employer] CEDIAImmunoassay.If preferred testing methodology for cy closporine isLiquid Chromatography Tandem Mass Spectrometry(LC-MS/MS), please us e test code 181543. For testingperformed by Immunoassay, please use test code 70 6557.Performed at: [facility] [employer] [id number] b Director: Leo Saavedra PhD, Phone: [phone] Community HospitalBlood Ljsvegd1441-26-11 20:24:00* Test Item Value Reference Range Interpretation Comments Blood Culture (test code = 74546834) NO GROWTH AFTER 5 DAYS, FINAL REPORT [facility] HospitalActivated Partial Thromboplast Time 2018-09-04 06:19:00* Test Item Value Reference Range Interpretation Comments Activated Partial Thromboplast Time (test code = 71589-1) 38.3 23.8-35.5 H [facility] HospitalCT CHEST KM8188-66-45 15:56:00 [facility] [address] [address] Patient Name: LISA GLASER MR #: [id number] : 1940 Age/Sex: 78/M Req #: [id number] Adm Physician: ED SHETTY MD Ordered by: ED SHETTY MD Report #: [id number] Location: [facility] Room/Bed: [facility] Procedure: [id number] CT/C T CHEST WO Exam Date: 09/02/18 Exam Time: 1511 REPORT STATUS: Signed EXAM: CT Chest without [...] 4:05 PM Dictated By: GEORGIE ORDONEZ MD 8667 Transcr ibed By: DEMOND on 09/02/18 9295 COPY TO: ED SHETTY MD FOOT RIGHT GVJCXICW6449-51-74 14:22:00 [address] [place], [place] [address] Patient Name: LISA GLASER MR #: [id number] : 1940 Age/Sex: 78/M Req #: [id number] Adm Physician: ED SHETTY MD Ordered by: FUENTES DAVE DPM Report #: [id number] Location: [facility] Room/Bed: [facility] Procedure: [id number] DX/ FOOT RIGHT COMPLETE Exam Date: 09/02/18 [...] 2:25 PM Dictated By: GEORGIE ORDONEZ MD 24 Transcribed By: DEMOND on 09/02/181424 COPY TO: FUENTES DAVE DPM Hemoglobin A1c Ptsykoy6692-99-35 08:15:00* Test Item Value Reference Range Interpretation Comments Hemoglobin A1c Percent (test code = Hemoglobin A1c Percent) 10.2 4.0-7.0 H [facility] HospitalThyroid Stimulating Hormone (TSH) 2018-09-02 06:56:00* Test Item Value Reference Range Interpretation Comments Thyroid Stimulating Hormone (TSH) (test code = 15068-0) 2.431 0.350-4.940 [facility] HospitalCHEST SINGLE (PORTABLE)2018-09-01 16:57:00 [facility] [address] [address] Patient Name: LISA GLASER MR #: [id number] : 1940 Age/Sex: 78/M Req #: [id number] Adm Physician: ED SHETTY MD Ordered by: ED SHETTY MD Report #: [id number] Location: [facility] Room/Bed: [facility] Procedure: [id number] DX/C HEST SINGLE (PORTABLE) Exam Date: 09/01/18 [...] 4:58 PM Dictated By: ZAIN CHACON MD 3225 Transcribed By: DEMOND on 09/01/18 1 658 COPY TO: ED SHETTY MD - XR FOOT 2 VIEWS RA6034-22-81 09:12:00 FAX: Fuentes Claire DPM [phone] [place]: St: [facility] Name: LISA HERNANDEZ [facility] : [birth year] Age/S: 75/M [address] Unit #: [id number] Loc: [place] [address] Phys: Fuentes Dave DPM Acct: [id number] Dis Date: Status: UNK PHONE #: [phone] Exam Date: 05/24/2016 0857 FAX #: [phone] Reason: S/P TRANSMETATARSAL AMPUTATION I D WITH FLAP CL EXAMS: CPT CODE: [id number] XR FO[place] 2 [place] [address] HISTORY: Post transmetatarsal ampu tation. COMPARISON: None available. Patient is post transmetatarsal resection. The margins appear sharp. Splint obscures det ail. Vascular locations. Bone mineralization is normal. IMPRESSION: Unremarkable post transmetatarsal resection. at 0912 Reported and signed by: Talat Thorpe M.D. CC: Fuentes Dave DPM Technologist: Noelle Cabezas RT(R); STUDENT TECHNOLOGIST Trnscrd Date/Time/By: (0912) : By: [email or web address] Orig Print D/T: S: 05/24/2016 (3215) PAGE 1 Signed Report - SP AORTOGM ABD W/JXIP4740-82-27 17:16:00 Name: LISA GLASER [facility] : 1940 Age/S: 75 / M [address] Unit #: [id number] Loc: [place] [address] Phys: Manish Shane MD Acct: [id number] Dis Date: Status: UNK PHONE #: Exam Date: 09/11/2015 1410 FAX #: Reason: EXAMS: CPT CODE: [id number] SP AORTOGM ABD W/FILM 68393 Fluoro Time: 7.3 DAP (Gy m2 ): 95048 Air Kerma (mGy): 331.0 REASON FOR EXAM: [...] the right common femoral artery and a 5-Swiss vascular sheath was inserted. An Omni Flush catheter was advanced over t he guidewire into the abdominal aorta. Abdominal aortogram show unremarka ble appearance of the abdominal aorta and iliac arteries. Th e Omni Flush catheter was then used to engage the bifurcation and advanced over a guidewire into the left external iliac artery. A 6-Swiss vascular sheath was then inserted. A left lower [...] right lower extremity was performed to the 6-Swiss vascular sheath. It demonstrate no evidence of disease in the SFA. There are 2 vessels r unoff in the anterior tibial and peroneal arteries to the right foot. No intervention performed on the right. MEDICATIONS: 4000 units of he shaw Complications: No immediate Blood loss: 10 mL PAGE 1 Signed Report (CONTINUED) Name: LISA MUNOZ [facility] : [birth year] Age/S: 75 / M [address] Unit #: [id number] Loc: [place] [address] Phys: Manish Shane MD Acct: [id number] Dis Date: Status: UNK PHONE #: [phone] Exam Date: 09/11/2015 1410 FAX #: [phone] R gordy: EXAMS: CPT CODE: [id number] SP AORTOGM ABD W/FILM 44314 Fluoro Time: 7.3 DAP (Gy m2): 17799 Air Kerma (mGy): 331.0 <Continued> IMPRESSION: High-grade [...] and signed by: Manish Shane M.D. CC: Riley Stevens; Maurice German MD Technologist: RENU ZUNIGA Trnscb Date/Time: 09/11/2015 (1715) tCELSAL Orig Print D/T: S: 09/11/2015 (5053) PAGE 2 Signed Report - SP ANGIO EXT EY5914-73-94 17:16:00 Name: LISA GLASER [facility] : 1940 Age/S: 75 / M [address] Unit #: [id number] Loc: [place] [address] Phys: Manish Shane MD Acct: [id number] Dis Date: Status: UNK PHONE #: [phone] Exam Date: 09/11/2015 1410 FAX #: [phone] Reason: EXAMS: CPT CODE: [id number] [place] [address] Fluoro Time: DAP (Gy m2): Air Kerma (mGy): REASON FOR EXAM: Nonhealing ulcer in the left toe EXAM ORDER DATE: 09/11/2015 1:00 PM Referring Lawrence: MD Monserrat Anesthesia: General Anesthesiologist: Dr. Lynne [...] the right common femoral artery and a 5-Swiss vascular sheath was inserted. An Omni Flush catheter was advanced over the guidewire into the abdominal aorta. Abdominal aortogram show unremarkable appearance of the abdominal aorta and iliac arteries. The Omni Flush catheter was then used to engage the bifurcation and advanced over a guidewire into the left external iliac artery. A 6-Swiss vascular sheath was then inserted. A left lower extremity arteriogram was performed with CO2. 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 A guidewire was successfully advanced past the stenosis into the distal left anterior tibial artery. Angioplasty was 1st performed with 3 mm followed x 4 mm balloon. Post angioplasty showed improvement in inflow with single vessel runoff to the left foot. A p eroneal artery runoff is seen to the left ankle. Angiogram o f the right lower extremity was performed to the 6-Swiss vascular sheath. It demonstrate no evidence of disease in the SFA. There are 2 vessels r unoff in the anterior tibial and peroneal arteries to the right foot. No intervention performed on the right. MEDICATIONS: 4000 units of he shaw Complications: No immediate Blood loss: 10 mL PAGE 1 Signed Report (CONTINUED) Name: LISA MUNOZ [facility] : [birth year] Age/S: 75 / M [address] Unit #: [id number] Loc: [place] [address] Phys: Manish Shane MD Acct: [id number] Dis Date: Status: UNK PHONE #: [phone] Exam Date: 09/11/2015 1410 FAX #: [phone] R gordy: EXAMS: CPT CODE: [id number] [place] [address] Fluoro Time: DAP (Gy m2): Air Kerma [...] CO2 only. No iodine contrast used. at 3799 Reported and signed by: Manish Shane M.D. CC: Riley Stevens; Maurice German MD Technologist: RENU ZUNIGA Trnscb Date/Time: 09/11/2015 (362) tMICHELETVTL Orig Print D/T: S: 09/11/2015 (3177) PAGE 2 Signed Report - CT C-SPINE W/O PAHYRAVR9051-36-70 11:42:00 Name: LISA GLASER [facility] : 1940 Age/S: 71 / M [address] [facility] Unit #: [id number] Loc: [place], [place] [address] Phys: Ed Archibald MD Acct: [id number] Dis Date: Status: UNK PHONE #: [phone] Exam Date: 11/16/2011 1135 FAX #: [phone] Reason: neck, shoulder pain EXAMS: CPT CODE: [id number] CT C-SPINE W/O CONTRAST 13044 HISTORY: Neck and shoulder pain TECHNIQUE: Axial [...] and signed by: Eva Christiansen M.D. CC: Technologist:VALERIE BURNS CTDI: DLP: Trnscb Date/Time: 11/16/2011 (7528) [email or web address] Orig Print D/T: S: 11/16/2011 (2642) PAGE 1 Signed Report - [facility] [id number] 16:05:00 Name: LISA GLASER [facility] : 1940 Age/S: 64 / M [address] [facility] Unit #: [id number] Loc: [place] [address] Phys: Js Howard MD Acct: [id number] Dis Date: Status: UNK PHONE #: [phone] Exam Date: 11/28/2004 1526 FAX #: [phone] Reason: EXAMS: CPT CODE: [id number] [facility] ACCESS 98932 Fluoro Time: DAP (Gy m2): Air Kerma (mGy): DICTATED: 11/28/04, 1605 HISTORY: CLOTTED SHUNT, HYPOKALEMIA, NEEDING EMERGENT DIALYSIS. HEMODIALYSIS CATHETER PLACEMENT, 11/28/04: CPT 92390, 13636 IMPRESSION: SUCCESSFUL PLACEMENT OF RIGHT INTERNAL JUGULAR [...] and there is no evidence of hemorrhage. 20274 at 1938 Reported and signed by: Manish Shane M.D. CC: Js Howard Technologist: RT ARMANDO HOFFMAN (R) [facility] [place] Date/Time: 11/29/2004 (0713) Luiz Orig Print D/T: (0837) S: PAGE 1 Signed Report - XR CHEST 2 [id number] 10:46:00 Garber: St: UNK Name: LISA HERNANDEZ [facility] : [birth year] Age/S: 64/M [address] [facility] Unit #: [id number] Loc: [place] [address] Phys: Alecia Marrero MD Acct: [id number] Dis Date: Status: UNK PHONE #: [phone] Exam Date: 11/27/20042215 FAX #: [phone] Reason: OR DAY: 1 EXAMS: CPT CODE: [id number] XR CHEST 2 V 24860 DICTATED: 11/28/04, 1046 H ISTORY: TWO VIEWS [...] DISH. IMPRESSION: 1. NO ACUTE CARDIOPULMONARY PROCESS OR ACTIVE DISEASE OF THE CHEST. 2. MILD CARDIOMEGALY. 3. 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 TT/bimal/70232 Electronical ly Signed by The Munir MONTALVO on 11/28/2004 at 2124 Reporte d and signed by: The MD Munir CC: Technologist: EVA FUNK, RT(R) Trnscrd Date/Time/By: 11/28/2004 (1425) : By: v.EDX.BIMAL/t.SDR.TTR Orig P rint D/T: S: 11/28/2004 (2123) PAGE 1 Signed Report - SP MANAGER BUILDING [id number] 11:39:00 Name: LISA GLASER [facility] : 1940 Age/S: 64 / M [address] [facility] Unit #: [id number] Loc: [place] [address] Phys: Js Howard MD Acct: [id number] Dis Date: Status: UNK PHONE #: [phone] Exam Date: 11/09/2004 1146 FAX #: [phone] Reason: IGHT/LEFT? L - LEFT EXAMS: CPT CODE: [id number] SP ANGIO A-V SHUNT [id number] SP MANAGER BUILDING VENOUS 77760 [id number] SP MANAGER BUILDING PERIPH 37442 Fluoro Time: DAP (Gy m2): Air Kerma (mGy): DICTATED: 11/11/04, 1139 CLINICAL INFORMATION: PATIENT WITH END-STAGE RENAL DISEASE PRESENTS WITH A THROMBOSED LEFT FOREARM HEMODIALYSIS GRAFT. (IT RETHROMBOSED AFTER RECENT SURGICAL REVISION) HEMODIALYSIS GRAFT STUDY WITH ADDITIONAL PUNCTURE, CLOT REMOVAL, ANGIOPLASTY OF THE ARTERIAL AND VENOUS ANASTOMOSIS AND VENOGRAM OF THE LEFT UPPER EXTREMITY AND THE CENTRAL VENOUS SYSTEM; CONSCIOUS SEDATION, 11/09/04: CPT 76891 X2, 90407, 77455, 59110, 03129, 30285, 19977, 54262, 76516 PROCEDURE AND FINDINGS: Informed consent was obtained [...] of an .035 Bentson wire and a 6-Swiss access sheath. The wire and a 5-Swiss Del Real catheter were then advanced through [...] an .035 guide wire and a short 6-Swiss access she ath. The guide wire and the Del Real catheter were advanced into the brachial artery. Study of the arterial system showed a patent b rachial artery and patent run-off to the forearm. 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 Thrombectomy of the PAGE 1 Signed Report (CONTINUED) Name: VIRGEN GLASER [facility] : 1940 Age/S: 64 / M [address] [facility] Unit #: [id number] Loc: [place] [address] Phys: Js Howard MD Acct: [id number] Dis Date: Status: UNK PHONE #: [phone] Exam Date: 11/09/2004 1146 FAX #: [phone] Reason: IGHT /LEFT? L - LEFT EXAMS: CPT CODE: [id number] SP ANGIO A-V SHUNT [id number] SP MANAGER BUILDING VENOUS 75 978 [id number] SP MANAGER BUILDING PERIPH 48691 Fluoro Time: DAP (Gy m2): Air Kerma [...] Final shunt angiography performed after placing the 5-Swiss Berstein catheter in the brachial artery showed [...] TAMMY CATHETER. 2. THESE PROCEDURES RESULTED IN TAOISM OF GOOD FLOW THROUGH THE GRAFT WITHGOOD [...] 2 Signed Report (CONTINUED) Name: LISA GLASER [facility] : 1940 Age/S: 64 / M [address] [facility] Unit #: [id number] Loc: [place] [address] Phys: Js Howard MD Acct: [id number] Dis Date: Status: UNK PHONE #: [phone] Exam Date: 11/09/2004 1146 FAX #: [phone] Reason: IGHT/LEFT? L - LEFT EXAMS: CPT CODE: [id number] SP ANGIO A-V SHUNT 42827 [id number] SP MANAGER BUILDING VENOUS 74503 [id number] SP MANAGER BUILDING PERIPH 33447 Fluoro Time: DAP (Gy m2): Air Kerma (mGy): < Continued> 6. BECAUSE OF THE SUCCESSFUL DECLOT PROCEDURE, NO CENTRAL VENOUS HEMODIALYSIS CATHETER WAS INSERTED. #55568/13805 at 1918 Reported by: Nicolas Wagner M.D. Signed by: Nicolas Wagner M.D. CC: Js Howard Technologist: ANA WOODWARD; PEBBLES CASTILLO,RT(R) SP; ... Trnscb Date/Time: 11/11/2004 (1202) v.EDX.DRC/t.SDR.GRW/v.EDX.DRToma Orig Print D/T: (7228) S: PAGE 3 Signed Report - SP ANGIO A-V [id number] 11:39:00 Name: LISA GLASER [facility] : 1940 Age/S: 64 / M [address] [facility] Unit #: [id number] Loc: [place] [address] Phys: Js Howard MD Acct: [id number] Dis Date: Status: UNK PHONE #: [phone] Exam Date: 11/09/2004 1146 FAX #: [phone] Reason: IGHT/LEFT? L - LEFT EXAMS: CPT CODE: [id number] SP ANGIO A-V SHUNT 14491 [id number] SP MANAGER BUILDING VENOUS 55495 [id number] SP MANAGER BUILDING PERIPH 15858 Fluoro Time: DAP (Gy m2): Air Kerma (mGy): DICTATED: 11/11/04, 1139 CLINICAL INFORMATION: PATIENT WITH END-STAGE RENAL DISEASE PRESENTS WITH A THROMBOSED LEFT FOREARM HEMODIALYSIS GRAFT. (IT RETHROMBOSED AFTER RECENT SURGICAL REVISION) HEMODIALYSIS GRAFT STUDY WITH ADDITIONAL PUNCTURE, CLOT REMOVAL, ANGIOPLASTY OF THE ARTERIAL AND VENOUS ANASTOMOSIS AND VENOGRAM OF THE LEFT UPPER EXTREMITY AND THE CENTRAL VENOUS SYSTEM; CONSCIOUS SEDATION, 11/09/04: CPT 16354 X2, 26170, 41911, 73680, 40007, 74519, 57788, 46501, 87818 PROCEDURE AND FINDINGS: Informed consent was obtained [...] an .035 Bentson wire and a 6 -Swiss access sheath. The wire and a 5-Swiss Del Real catheter were th en advanced [...] an .035 guide wire and a short 6-Swiss access she ath. The guide wire and the Del Real catheter were advanced into the brachial artery. Study of the arterial system showed a patent b rachial artery and patent run-off to the forearm. 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 Thrombectomy of the PAGE 1 Signed Report (CONTINUED) Name: VIRGEN GLASER [facility] : 1940 Age[facility]S: 64 / M [address] [facility]: [id number] Loc: [place] [address] Phys: Js Howard MD Acct: [id number] Dis Date: Status: UNK PHONE #: [phone] Exam Date: 11/09/2004 1146 FAX #: [phone] Reason: IGHT /LEFT? L - LEFT EXAMS: CPT CODE: [id number] SP ANGIO A-V SHUNT [id number] SP MANAGER BUILDING VENOUS 75 978 [id number] SP MANAGER BUILDING PERIPH 18758 Fluoro Time: DAP (Gy m2): Air Kerma [...] Final shunt angiography performed after placing the 5-Swiss Berstein catheter in the brachial artery showed [...] TAMMY CATHETER. 2. THESE PROCEDURES RESULTED IN TAOISM OF GOOD FLOW THROUGH THE GRAFT WITHGOOD [...] 2 Signed Report (CONTINUED) Name: LISA GLASER [facility] : 1940 Age/S: 64 / M [address] [facility] Unit #: [id number] Loc: [place] [address] Phys: Js Howard MD Acct: [id number] Dis Date: Status: UNK PHONE #: [phone] Exam Date: 11/09/2004 1146 FAX #: [phone] Reason: IGHT/LEFT? L - LEFT EXAMS: CPT CODE: [id number] SP ANGIO A-V SHUNT 20684 [id number] SP MANAGER BUILDING VENOUS 29769 [id number] SP MANAGER BUILDING PERIPH 16709 Fluoro Time: DAP (Gy m2): Air Kerma (mGy): < Continued> 6. BECAUSE OF THE SUCCESSFUL DECLOT PROCEDURE, NO CENTRAL VENOUS HEMODIALYSIS CATHETER WAS INSERTED. #25288/79578 at 1918 Reported by: Nicolas Wagner M.D. Signed by: Nicolas Wagner M.D. CC: Js Howard Technologist: ANA WOODWARD; PEBBLES CASTILLO,RT(R) SP; ... Trnscb Date/Time: 11/11/2004 (1202) v.EDX.DRC/t.SDR.GRW/v.EDX.DRToma Orig Print D/T: (1155) S: PAGE 3 Signed Report - SP MANAGER BUILDING [id number] 11:39:00 Name: LISA GLASER [facility] : 1940 Age/S: 64 / M [address] [facility] Unit #: [id number] Loc: [place] [address] Phys: Js Howard MD Acct: [id number] Dis Date: Status: UNK PHONE #: [phone] Exam Date: 11/09/2004 1146 FAX #: [phone] Reason: IGHT/LEFT? L - LEFT EXAMS: CPT CODE: [id number] SP ANGIO A-V SHUNT 05217 [id number] SP MANAGER BUILDING VENOUS 37669 [id number] SP MANAGER BUILDING PERIPH 66236 Fluoro Time: DAP (Gy m2): Air Kerma (mGy): DICTATED: 11/11/04, 1139 CLINICAL INFORMATION: PATIENT WITH END-STAGE RENAL DISEASE PRESENTS WITH A THROMBOSED LEFT FOREARM HEMODIALYSIS GRAFT. (IT RETHROMBOSED AFTER RECENT SURGICAL REVISION) HEMODIALYSIS GRAFT STUDY WITH ADDITIONAL PUNCTURE, CLOT REMOVAL, ANGIOPLASTY OF THE ARTERIAL AND VENOUS ANASTOMOSIS AND VENOGRAM OF THE LEFT UPPER EXTREMITY AND THE CENTRAL VENOUS SYSTEM; CONSCIOUS SEDATION, 11/09/04: CPT 32059 X2, 82989, 99276, 19389, 02303, 90462, 59570, 07349, 03442 PROCEDURE AND FINDINGS: Informed consent was obtained [...] an .035 Bentson wire and a 6 -Swiss access sheath. The wire and a 5-Swiss Del Real catheter were th en advanced [...] an .035 guide wire and a short 6-Swiss access she ath. The guide wire and the Del Real catheter were advanced into the brachial artery. Study of the arterial system showed a patent b rachial artery and patent run-off to the forearm. 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 Thrombectomy of the PAGE 1 Signed Report (CONTINUED) Name: VIRGEN GLASER [facility] : 1940 Age/S: 64 / M [address] [facility] Unit #: [id number] Loc: [place] [address] Phys: Js Howard MD Acct: [id number] Dis Date: Status: UNK PHONE #: [phone] Exam Date: 11/09/2004 1146 FAX #: [phone] Reason: IGHT /LEFT? L - LEFT EXAMS: CPT CODE: [id number] SP ANGIO A-V SHUNT 04131 [id number] SP MANAGER BUILDING VENOUS 75 978 [id number] SP MANAGER BUILDING PERIPH 61595 Fluoro Time: DAP (Gy m2): Air Kerma [...] Final shunt angiography performed after placing the 5-Swiss Berstein catheter in the brachial artery showed [...] TAMMY CATHETER. 2. THESE PROCEDURES RESULTED IN TAOISM OF GOOD FLOW THROUGH THE GRAFT WITHGOOD [...] 2 Signed Report (CONTINUED) Name: LISA GLASER [facility] : 1940 Age[facility]S: 64 / M [address] [facility] Unit #: [id number] Loc: [place] [address] Phys: Js Howard MD Acct: [id number] Dis Date: Status: UNK PHONE #: [phone] Exam Date: 11/09/2004 1146 FAX #: [phone] Reason: IGHT/LEFT? L - LEFT EXAMS: CPT CODE: [id number] SP ANGIO A-V SHUNT 12917 [id number] SP MANAGER BUILDING VENOUS 89654 [id number] SP MANAGER BUILDING PERIPH 02518 Fluoro Time: DAP (Gy m2): Air Kerma (mGy): < Continued> 6. BECAUSE OF THE SUCCESSFUL DECLOT PROCEDURE, NO CENTRAL VENOUS HEMODIALYSIS CATHETER WAS INSERTED. #21604/73962 at 1918 Reported by: Nicolas Wagner M.D. Signed by: Nicolas Wagner M.D. CC: Js Howard Technologist: ANA WOODWARD; PEBBLES CASTILLO,RT(R) SP; ... Trnscb Date/Time: 11/11/2004 (3308) v.EDX.DRC/t.MAMADOUR.GRW/v.EDX.NASREEN Orig Print D/T: (3060) S: PAGE 3 Signed Report - XR CHEST 2 [id number] 13:53:00 FAX: Riley Kirk MD [phone] [place]: O St: [facility] FAX: Js Parikh MD [phone] Name: LISA GLASER [facility] : 1940 Age/S: 64/M [address] [facility] Unit #: [id number] Loc: [facility] [place] [address] Phys: Js Howard MD Acct: [id number] Dis Date: Status: UNK PHONE #: [phone] Exam Date: 10/09/2004 0932 FAX #: [phone] Reason: OR DAY: 1 EXAMS: CPT CODE: [id number] XR CHEST 2 V 01796 DICTATED: 10/09/04, 1353 CLINICAL HISTORY: RENAL FAILURE. CHEST TWO VIEWS, 10/09/04: The lungs and pleural spaces are clear but mildly hyperinflated. Heart size is near the upper limit of normal or slightly large. Focally advanced thoracic spondylosis and slight scoliosis are noted. IMPRESSION: 1. MILD CARDIOMEGALY. 2. MILD PULMONARY HYPERINFLATION. /waldemar 37851 at 1949 Reported and signed by: Jacky Irving M.D. CC: Riley Stevens; Js Howard Technologist: PATRICIA SMITH,RT(R) Trnscrd Date/Time/By: 10/09/2004 (1608) : By: Kerrie.WALDEMAR/Kerrie.WALDEMAR Orig Print D/T: (142) S: 10/15/2004 (1948) PAGE 1 Signed Report - XR CHEST 1 [id number] 13:52:00 FAX: Js Parikh MD [phone] [place]: St: UNK Name: LISA HERNANDEZ [facility] : [birth year] Age/S: 63/M [address] [facility] Unit #: [id number] Loc: [place] [address] Phys: Js Howard MD Acct: [id number] Dis Date: Status: UNK PHONE #: [phone] Exam Date: 06/11/2004 1300 FAX #: [phone] Reason: OR DAY: 1 EXAMS: CPT CODE: [id number] XR CHEST 1 V 92383 DICTATED: 06/11/04, 1352 H ISTORY: CLOTTED GRAFT. [...] THE RIGHT WITH THE TIP IN THE SUPERIOR VENA CAVA. 4. CARDIOMEGALY. #52927 at 1105 Reported and signed by: Talat Thorpe M.D. CC: Js Howard Technologist: PAULA POSADA R.T.(R) Trnscrd Date/Time/By: 06/11/2004 (1452) : By: Joycelyn/YONATHAN Orig Print D/T: (0838) S: 06/15/2004 (4849) PAGE 1 Signed Report - XR CHEST 1 [id number] 18:35:00 FAX: Js Parikh MD [phone] [place]: St: MARIK Name: LISA HERNANDEZ [facility] : [birth year] Age/S: 63/M [address] [facility] Unit #: [id number] Loc: [place] [address] Phys: Js Howard MD Acct: [id number] Dis Date: Status: UNK PHONE #: [phone] Exam Date: 12/04/20031817 FAX #: [phone] Reason: OR DAY: 1 EXAMS: CPT CODE: [id number] XR CHEST 1 V 97490 DICTATED: 12/04/03, 1835 RE ASON FOR EXAMINATION: END-STAGE RENAL DISEASE. CHEST X-RAY, 12/03, 1811: CPT 19043 Single supine view of the chest shows hypoa erated lungs without evidence of consolidation or effusion. The heart siz e and pulmonary vasculature are unremarkable. There is a right IJ dialysi s catheter with the tip in the region of the SVC. No evidence of pneumoth orax. IMPRESSION: STATUS POST DIALYSIS CATHETER PLACEMENT WITHOUT EVIDENCE OF PNEUMOTHORAX. #38027 at 1913 Reported and signed by: Manish Shane M.D. CC: Js George Technologist: SHAYNE BELTRAN, RT(R),CT Trnscrd Date/Time/By: 12/05/2003 (1617) : By: EvetteRODRIGUEZ Orig Print D/T: S: 12/05/2003 (1912) PAGE 1 Signed Report - SP MANAGER BUILDING [id number] 11:18:00 Name: LISA GLASER [facility] : 1940 Age/S: 63 / M [address] [facility] Unit #: [id number] Loc: [facility] [place] [address] Phys: Nicolas Wagner MD Acct: [id number] Dis Date: Status: UNK PHONE #: [phone] Exam Date: 12/02/2003 1548 FAX #: [phone] Reason: EXAMS: CPT CODE: [id number] SP VENOCAVAGM SUP 91390 [id number] SP ANGIO A-V SHUNT 34268 [id number] SP MANAGER BUILDING VENOUS 09833 [id number] SP MANAGER BUILDING PERIPH 72356 Fluoro Time: DAP (Gy m2): Air Kerma (mGy): DICTATED: 12/04/03, 1118 CLINICAL INFORMATION: PATIENT WITH END-STAGE RENAL DISEASE PRESENTS WITH A THROMBOSED LEFT FOREARM HEMODIALYSIS GRAFT. THE GRAFT WAS PLACED 1.5 YEARS AGO AND HAS BEEN FUNCTIONING WELL UNTIL RECENT THROMBOSIS. HEMODIALYSIS FISTULOGRAM WITH ADDITIONAL PUNCTURE, CLOT REMOVAL, ANGIOPLASTY OF THE ARTERIAL AND VENOUS ANASTOMOSIS AND CENTRAL (SVC) VENOGRAM: CPT 06802 x2, 39553, 70929, 12974, 91559, 90127, 16934, 53348 PROCEDURE AND FINDINGS: After obtaining informed consent the patient was placed supine on the procedure table and his left arm and forearm were prepped and draped in the usual sterile fashion. Xylocaine was administered over the arterial and venous limb of the graft and both limbs were accessed with a micropuncture system followed by insertion of 0.035 guidewires and 6-Swiss vascular access sheath. The venous limb was positioned medially and the arterial limb laterally (on the radial side of the forearm). A [facility]Swiss [facility] was advanced over a Bentson wire [...] restored. PAGE 1 Signed Report (CONTINUED) Name: YOMI BONNERBeenaLISA ZANE [facility] : [birth year] Age/S: 63 / M [address] [facility] Unit #: [id number] Loc: [place] [address] Phys: Nicolas Wagner MD Acct: [id number] Dis Date: Status: UNK PHONE #: [phone] Exam Date: 12/02/2003 1548 FAX #: [phone] Re ason: EXAMS: CPT CODE: [id number] SP VENOCAVAGM SUP [id number] SP ANGIO A-V SHUNT 40624 [id number] SP MANAGER BUILDING VENOUS 84567 [id number] SP MANAGER BUILDING PERIPH 64110 Fluoro Time: DAP (Gy m2): Air Kerma [...] ANGIOPLASTY OF THE ARTERIAL AND VENOUS ANASTOMOSIS. #08837 at 0949 Reported by: Nicolas Wagner M.D. Signed by: Nicolas Wagner M.D. CC: Riley Stevens; Navid Hess MD Technologist: RIKKI LAURENT, RT(R) SP; ... Trnscb Date/Time: 12/04/2003 (2100) v.EDX.TLB/t.SDR.GRW Orig Print D/T: S: 12/05/2003 (0949) PAGE 2 Signed Report - SP MANAGER BUILDING [id number] 11:18:00 Name: LISA GLASER [facility] : 1940 Age/S: 63 / M [address] [facility] Unit #: [id number] Loc: [place] [address] Phys: Nicolas Wagner MD Acct: [id number] Dis Date: Status: UNK PHONE #: [phone] Exam Date: 12/02/2003 1546 FAX #: [phone] Reason: EXAMS: CPT CODE: [id number] SP VENOCAVAGM SUP 65556 [id number] SP ANGIO A-V SHUNT 13491 [id number] SP MANAGER BUILDING VENOUS 39955 [id number] SP MANAGER BUILDING PERIPH 30562 Fluoro Time: DAP (Gy m2): Air Kerma (mGy): DICTATED: 12/04/03, 1118 CLINICAL INFORMATION: PATIENT WITH END-STAGE RENAL DISEASE PRESENTS WITH A THROMBOSED LEFT FOREARM HEMODIALYSIS GRAFT. THE GRAFT WAS PLACED 1.5 YEARS AGO AND HAS BEEN FUNCTIONING WELL UNTIL RECENT THROMBOSIS. HEMODIALYSIS FISTULOGRAM WITH ADDITIONAL PUNCTURE, CLOT REMOVAL, ANGIOPLASTY OF THE ARTERIAL AND VENOUS ANASTOMOSIS AND CENTRAL (SVC) VENOGRAM: CPT 39597 x2, 17939, 26106, 75999, 99186, 02488, 02143, 61324 PROCEDURE AND FINDINGS: After obtaining informed consent the patient was placed supine on the procedure table and his left arm and forearm were prepped and draped in the usual sterile fashion. Xylocaine was administered over the arterial and venous limb of the graft and both limbs were accessed with a micropuncture system followed by insertion of 0.035 guidewires and 6-Swiss vascular access sheath. The venous limb was positioned medially and the arterial limb laterally (on the radial side of the forearm). A 5-Swiss [place] Soundstein catheter was advanced over a [place] wire into the central aspect of the [...] Signed Report (CONTINUED) Name: LISA DEL RIO [facility] : [birth year] Age/S: 63 / M [address] [facility] Unit #: [id number] Loc: [place] [address] Phys: Nicolas Wagner MD Acct: [id number] Dis Date: Status: UNK PHONE #: [phone] Exam Date: 12/02/20038 FAX #: [phone] Re ason: EXAMS: CPT CODE: [id number] SP VENOCAVAGM SUP 99320 [id number] SP ANGIO A-V SHUNT 92259 [id number] SP MANAGER BUILDING VENOUS 51743 [id number] SP MANAGER BUILDING PERIPH 94806 Fluoro Time: DAP (Gy m2): Air Kerma [...] ANGIOPLASTY OF THE ARTERIAL AND VENOUS ANASTOMOSIS. #87639 at 0949 Reported by: Nicolas Wagner M.D. Signed by: Nicolas Wagner M.D. CC: Riley Stevens; Navid Hess MD Technologist: RIKKI LAURENT, RT(R) SP; ... Trnscb Date/Time: 12/04/2003 (2099) v.EDX.TLB/t.SDR.GRW Orig Print D/T: S: 12/05/2003 (0949) PAGE 2 Signed Report - SP VENOCAVAGM [id number] 11:18:00 Name: LISA GLASER [facility] : 1940 Age/S: 63 / M [address] [facility] Unit #: [id number] Loc: [place] [address] Phys: Nicolas Wagner MD Acct: [id number] Dis Date: Status: UNK PHONE #: [phone] Exam Date: 12/02/2003 1548 FAX #: [phone] Reason: EXAMS: CPT CODE: [id number] SP VENOCAVAGM SUP 27481 [id number] SP ANGIO A-V SHUNT 86276 [id number] SP MANAGER BUILDING VENOUS 02698 [id number] SP MANAGER BUILDING PERIPH 91325 Fluoro Time: DAP (Gy m2): Air Kerma (mGy): DICTATED: 12/04/03, 1118 CLINICAL INFORMATION: PATIENT WITH END-STAGE RENAL DISEASE PRESENTS WITH A THROMBOSED LEFT FOREARM HEMODIALYSIS GRAFT. THE GRAFT WAS PLACED 1.5 YEARS AGO AND HAS BEEN FUNCTIONING WELL UNTIL RECENT THROMBOSIS. HEMODIALYSIS FISTULOGRAM WITH ADDITIONAL PUNCTURE, CLOT REMOVAL, ANGIOPLASTY OF THE ARTERIAL AND VENOUS ANASTOMOSIS AND CENTRAL (SVC) VENOGRAM: CPT 10784 x2, 69696, 46519, 89025, 88802, 83159, 37343, 84623 PROCEDURE AND FINDINGS: After obtaining informed consent the patient was placed supine on the procedure table and his left arm and forearm were prepped and draped in the usual sterile fashion. Xylocaine was administered over the arterial and venous limb of the graft and both limbs were accessed with a micropuncture system followed by insertion of 0.035 guidewires and 6-Swiss vascular access sheath. The venous limb was positioned medially and the arterial limb laterally (on the radial side of the forearm). A 5-Swiss Be SNRLabstein catheter was advanced over a [place]une[place] wire into the central aspect of the [...] Signed Report (CONTINUED) Name: LISA DEL RIO [facility] : [birth year] Age/S: 63 / M [address] Unit #: [id number] Loc: [place] [address] Phys: Nicolas Wagner MD Acct: [id number] Dis Date: Status: UNK PHONE #: [phone] Exam Date: 12/02/2003 1548 FAX #: [phone] Re ason: EXAMS: CPT CODE: [id number] SP VENOCAVAGM SUP 80398 [id number] SP ANGIO A-V SHUNT 21066 [id number] SP MANAGER BUILDING VENOUS 61106 [id number] SP MANAGER BUILDING PERIPH 59427 Fluoro Time: DAP (Gy m2): Air Kerma [...] ANGIOPLASTY OF THE ARTERIAL AND VENOUS ANASTOMOSIS. #89583 at 0949 Reported by: Nicolas Wagner M.D. Signed by: Nicolas Wagner M.D. CC: Riley Stevens; Navid Hess MD Technologist: RIKKI LAURENT, RT(R) SP; ... Trnscb Date/Time: 12/04/2003 (2099) v.EDX.TLB/t.SDR.GRW Orig Print D/T: S: 12/05/2003 (0949) PAGE 2 Signed Report - SP ANGIO A-V [id number] 11:18:00 Name: LISA GLASER [facility] : 1940 Age/S: 63 / M [address] Unit #: [id number] Loc: [place] [address] Phys: Nicolas Wagner MD Acct: [id number] Dis Date: Status: UNK PHONE #: [phone] Exam Date: 12/02/2003 1548 FAX #: [phone] Reason: EXAMS: CPT CODE: [id number] SP VENOCAVAGM SUP 50055 [id number] SP ANGIO A-V SHUNT 11328 [id number] SP MANAGER BUILDING VENOUS 19366 [id number] SP MANAGER BUILDING PERIPH 25837 Fluoro Time: DAP (Gy m2): Air Kerma (mGy): DICTATED: 12/04/03, 1118 CLINICAL INFORMATION: PATIENT WITH END-STAGE RENAL DISEASE PRESENTS WITH A THROMBOSED LEFT FOREARM HEMODIALYSIS GRAFT. THE GRAFT WAS PLACED 1.5 YEARS AGO AND HAS BEEN FUNCTIONING WELL UNTIL RECENT THROMBOSIS. HEMODIALYSIS FISTULOGRAM WITH ADDITIONAL PUNCTURE, CLOT REMOVAL, ANGIOPLASTY OF THE ARTERIAL AND VENOUS ANASTOMOSIS AND CENTRAL (SVC) VENOGRAM: CPT 55573 x2, 13640, 02882, 16808, 09276, 33436, 97379, 02503 PROCEDURE AND FINDINGS: After obtaining informed consent the patient was placed supine on the procedure table and his left arm and forearm were prepped and draped in the usual sterile fashion. Xylocaine was administered over the arterial and venous limb of the graft and both limbs were accessed with a micropuncture system followed by insertion of 0.035 guidewires and 6-Swiss vascular access sheath. The venous limb was positioned medially and the arterial limb laterally (on the radial side of the forearm). A 5[facility] [facility] was advanced over a Bentson wire [...] Signed Report (CONTINUED) Name: LISA DEL RIO [facility] : [birth year] 40 Age/S: 63 / M [address] [facility] Unit #: [id number] Loc: [place] [address] Phys: Nicolas Wagner MD Acct: [id number] Dis Date: Status: UNK PHONE #: [phone] Exam Date: 12/02/2003 1548 FAX #: [phone] Re ason: EXAMS: CPT CODE: [id number] SP VENOCAVAGM SUP [id number] SP ANGIO A-V SHUNT [id number] SP MANAGER BUILDING VENOUS [id number] SP MANAGER BUILDING PERIPH 12098 Fluoro Time: DAP (Gy m2): Air Kerma [...] ANGIOPLASTY OF THE ARTERIAL AND VENOUS ANASTOMOSIS. #[id number] at 0949 Reported by: Nicolas Wagner M.D. Signed by: Nicolas Wagner M.D. CC: Riley Stevens; Navid Hess MD Technologist: RIKKI LAURENT, RT(R) SP; ... Trnscb Date/Time: 12/04/2003 (2100) v.EDX.TLB/t.MAMADOUR.GRW Orig Print D/T: S: 12/05/2003 (0949) PAGE 2 Signed Report - XR CHEST 1 [id number] 11:19:00 FAX: Riley Kirk MD [phone] [place]: St: [facility] FAX: Js Parikh MD [phone] Name: LISA GLASER [facility] : 1940 Age/S: 61/M [address] [facility] Unit #: [id number] Loc: [facility] [place] [address] Phys: Js Howard MD Acct: [id number] Dis Date: Status: UNK PHONE #: [phone] Exam Date: 03/02/2002829 FAX #: [phone] Reason: ONS: PACU 4 EXAMS: CPT CODE: [id number] XR CHEST 1 V 26133 DICTATED: 03/02/02, 1119 HISTORY: FRONTAL VIEW OF [...] IMPRESSION: NO ACUTE INFILTRATES, EFFUSION OR CONGESTION. #[id number] at 1240 Reported and signed by: Talat Thorpe M.D. CC: Riley Stevens; Js Howard [facility] Technologist: PAULA POSADA R.T.(R) Trnscrd Date/Time/By: 03/02/2002 (1237) : By: [facility] PAGE 1 Signed Report - US EXTREM NON [id number] 08:43:00 Name: LISA GLASER [facility] : 1940 Age/S: 61 / M Shaina Patricia Unit #: [id number] Loc: [place] [address] Phys: Manidner Hardin MD Acct: [id number] Dis Date: Status: UNK PHONE #: [phone] Exam Date: 02/23/2002 1000 FAX #: [phone] Reason: EXAMS: CPT CODE: [id number] US EXTREM NON VASC [id number] DICTATED: 02/27/02, 842 CLINICAL INFORMATION: PATIENT IS STATUS POST PLACEMENT OF LEFT FOREARM GRAFT AND PRESENTS WITH CELLULITIS. HE HAS BEEN REFERRED FOR ULTRASOUND AND POSSIBLE FLUID ASPIRATION. ULTRASOUND OF THE LEFT FOREARM, 02/23/02: [id number] FINDINGS: The graft was widely patent with good flow as determined by color Doppler ultrasound. Tissues surrounding the graft is sonographically unremarkable without evidence of a localized fluid collection or of significant inflammatory changes. No needle aspiration was performed. IMPRESSION: 1. PATENT GRAFT WITHOUT SIGNIFICANT ABNORMALITIES OF SURROUNDING SOFT TISSUES BY ULTRASOUND. 2. NO EVIDENCE OF ABSCESS FORMATION. #[id number] at 1850 Reported by: Nicolas Wagner M.D. Signed by: Nicolas Wagner M.D. CC: Riley Stevens; Js Howard; Maninder Hardin MD Technologist: ELISE WONG RT(R),RDMS [facility] Date/Time: 02/27/2002 (901) Ashish/Ez.GRW PAGE 1 Signed Report - XR CHEST 1 [id number] 09:47:00 [place]: [address] St: MICHELLE Name: LISA HERNANDEZ [facility] : [birth year] Age/S: 61/M [address] Unit #: [id number] Loc: [place] [address] Phys: Tika Encinas MD Acct: [id number] Dis Date: Status: UNK PHONE #: [phone] Exam Date: 02/15/2002924 FAX #: [phone] Reason: ONS: EXAMS: CPT CODE: [id number] XR CHEST 1 V 75690 DICTATED: 02/16/02, 09 HI STORY: PORTABLE CHEST ONE VIEW, 10:19 A.M., 02/15/02: CP T CODE 70445 There is no evidence of active disease involving the lungs, pleura, or mediastinum. The heart size is near the upper limit of normal. Thoracic spondylosis is noted. IMPRESSION: NO ACTIVE CARDIOPULMONARY FINDINGS. at 1309 Reported and signed by: Jacky Irving M.D. CC: Technologist: STUDENT TECHNOLOGIST; JACKIE BIGGS R.T.(Betsy) Trnscrd Date/Time/By: 02/16/2002 (1434) : By: Kerrie.GXE PAGE 1 Signed Report - XR CHEST 2 [id number] 09:22:00 FAX: Riley Kirk MD [phone] [place]: O St: [facility] FAX: Js Parikh MD [phone] Name: LISA GLASER [facility] : 1940 Age/S: 61/M [address] Unit #: [id number] Loc: [place] [address] Phys: Js Howard MD Acct: [id number] Dis Date: Status: UNK PHONE #: [phone] Exam Date: 02/09/2002 1607 FAX #: [phone] Reason: ONS: EXAMS: CPT CODE: [id number] XR CHEST 2 V 71946 DICTATED: 02/10/02, 09 HISTORY: CHEST TWO VIEWS 1601 HOURS, 02/09/02: [id number] The lungs and pleural spaces are clear but mildly hyperinflated. Heart size is near the upper limit of normal. Focally advanced spondylosis is present. IMPRESSION: NO ACTIVE CARDIPULMONARY FINDINGS. NO COMPARISON EXAM SUBMITTED. #[id number] Haley gonzalez Signed by Lawrence Irving on 02/16/2002 at 1147 R eported and signed by: Jacky Irving M.D. CC: Riley Stevens; Js Howard Technologist: IZABEL MAYA Trnscrd Date/Time/By: 02/10/2002 (1031) : By: jason HADDAD PAGE 1 Signed Report
[2020-05-26] MEDS ORDERED: ACETAMINOPHEN 325 MG TAB PO NR (17:45)
[2020-05-26] MEDS ORDERED: ONDANSETRON HCL 4 MG ORAL DISINTEGRATING TAB PO NR (18:00)
[2020-05-26] MEDS ORDERED: LEVOFLOXACIN 750MG/D5W 150ML 150 ML IV NR (18:00)
[2020-05-26] MEDS ORDERED: ONDANSETRON HCL INJ 2MG/ML 2ML 2 MG/ML VIAL ONE (18:12)
[2020-05-26] MEDS ORDERED: ACETAMINOPHEN 325 MG TAB ONE (18:13)
[2020-05-26] MEDS ORDERED: PIPER-TAZ 3.375 GM 50 ML ONE (18:13)
[2020-05-26] MEDS ORDERED: LEVOFLOXACIN 750MG/D5W 150ML 150 ML IV ONE (18:13)
[2020-05-26] MEDS ORDERED: VANCOMYCIN 1GM/NS 250 ML 250 ML ONE (18:13)
--- NOTE | 2020-05-26 18:52 | NUR ---
Called [facility] to initiate a transfer.
--- NOTE | 2020-05-26 19:32 | Diagnostic Imaging Report ---
EXAMINATION: CXR 1 [facility] INDICATION: ^fever ^[id number] ^1733 COMPARISON: None FINDINGS: TUBES and LINES: None. LUNGS: Normal lung volumes. There is diffuse interstitial prominence and hazy opacification the bilateral lung bases. PLEURA: There is small left pleural effusion with superimposed atelectasis. No pneumothorax. HEART AND MEDIASTINUM: The cardiomediastinal silhouette is obscured. There are atherosclerotic calcifications within the aorta. BONES AND SOFT TISSUES: No acute osseous lesion. Soft tissues are unremarkable. UPPER ABDOMEN: No free air under the diaphragm. IMPRESSION: 1. Diffuse interstitial prominence and hazy opacification the bilateral lung bases. Constellation of findings may represent atelectasis and/or multifocal pneumonia in the proper clinical context. 2. Small left pleural effusion with superimposed compressive atelectasis. Signed by: Ramsey Arriola MD on 05/26/2020 7:29 PM
--- NOTE | 2020-05-26 20:09 | Diagnostic Imaging Report ---
EXAM: CT Chest, Abdomen and Pelvis WITHOUT contrast INDICATION: ^fever, nausea/vomiting ^[id number] ^1828 COMPARISON: CT chest abdomen and pelvis on 12/28/2019 TECHNIQUE: Chest, abdomen and pelvis were scanned utilizing a multidetector helical scanner from the lung apex to the pubic symphysis without administration of IV contrast. Absence of intravenous contrast decreases sensitivity for detection of focal lesions and vascular pathology. Coronal and sagittal reformations were obtained. Routine protocol was performed. IV CONTRAST: None ORAL CONTRAST: Water COMPLICATIONS: None RADIATION DOSE: Total DLP: 1170 mGy*cm Estimated effective dose: (DLP x 0.015 x size factor) mSv CTDIvol has been reviewed. It is below the limits set by the Radiation Protocol Committee (RPC). Dose modulation, iterative reconstruction, and/or weight based adjustment of the mA/kV was utilized to reduce the radiation dose to as low as reasonably achievable. FINDINGS: LINES and TUBES: Beatty catheter which terminates in the urinary bladder lumen. LUNGS , PLEURA AND AIRWAYS: There is right basilar atelectasis and trace loculated pleural effusion on the right. There is redemonstration of moderate left pleural effusion with superimposed compressive atelectasis and partial left lower lobe collapse. There is also subsegmental atelectasis of the posterior left upper lobe. There are debris within the mid to lower trachea. HEART AND MEDIASTINUM: The thyroid gland is normal. No mediastinal, hilar or axillary lymphadenopathy. However, there are multiple calcified mediastinal and hilar nodes likely from prior granulomatous infection. The heart is mildly enlarged with pericardial effusion which is unchanged from prior exam. There is severe atherosclerotic calcification of the coronary arteries and thoracic aortic arch extending into its branch vessels. HEPATOBILIARY: No focal hepatic lesions. No biliary ductal dilation. GALLBLADDER: No radio-opaque stones or sludge. No wall thickening. SPLEEN: No splenomegaly. PANCREAS: There is a hypoattenuating pancreatic head mass which measures approximately 3.3 x 3.1 cm (series 2 image 128). No pancreatic ductal dilatation. ADRENALS: No adrenal nodules KIDNEYS/URETERS: The [place] kidneys are atrophic bilaterally. There is a 5 cm] renal cyst which is unchanged. 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 No stones. GI TRACT: There is well formed impacted stool in the rectum and sigmoid colon with associated mucosal wall thickening. There is also well-formed stool throughout the remaining colon without impaction. No abnormal distention, wall thickening, or evidence of bowel obstruction. Appendix is normal. PELVIC ORGANS/BLADDER: The urinary bladder is decompressed. No gross abnormality in the pelvis. LYMPH NODES: There are multiple prominent mesenteric lymph nodes, none of which meet criteria for pathologic enlargement and likely reactive. VESSELS: There is moderate atherosclerotic disease in the aorta and major arterial branches. PERITONEUM / RETROPERITONEUM: No free air or fluid. There is somewhat ellis appearance of the mesenteric fat and stranding around the transplanted pelvic kidney. BONES: There are degenerative changes in the spine and diffuse etiopathic skeletal hyperostosis. SOFT TISSUES: The esophagus appears patulous as before. There is diffuse anarsarca. IMPRESSION: 1. Trace right loculated pleural effusion with superimposed atelectasis. 2. Redemonstration of moderate left pleural effusion with superimposed compressive atelectasis and partial left lower lobe collapse. 3. Multiple calcified mediastinal and hilar nodes likely from prior granulomatous infection. 4. Mild cardiomegaly with pericardial effusion. Findings suggestive of fluid overload state characterize by diffuse anasarca, ellis appearance of the mesenteric fat. 5. Severe atherosclerotic calcification of the coronary arteries and thoracic aortic arch extending into its branch vessels. 6. Hypoattenuating pancreatic head mass which measures approximately 3.3 x 3.1 cm, suspicious for malignancy. Recommend further evaluation with MRI of the abdomen (pancreas mass protocol). 7. 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 This may be related to inflammation or infection. Correlate for renal function. Signed by: Ramsey Arriola MD on 05/26/2020 8:06 PM
== END 2020-05-26 23:20 | disposition other institution (70) ==
LOC: FSED 17:29
DX: A41.9 Sepsis, unspecified organism (principal); R50.9 Fever, unspecified; J18.9 Pneumonia, unspecified organism; J90 Pleural effusion, not elsewhere classified; I31.3 Pericardial effusion (noninflammatory); K86.9 Disease of pancreas, unspecified; R05 Cough; R11.2 Nausea with vomiting, unspecified; I50.9 Heart failure, unspecified; R74.8 Abnormal levels of other serum enzymes; E86.0 Dehydration; N39.0 Urinary tract infection, site not specified; I10 Essential (primary) hypertension; R47.01 Aphasia; I12.0 Hypertensive chronic kidney disease with stage 5 chronic kidney disease or end stage renal disease; E11.22 Type 2 diabetes mellitus with diabetic chronic kidney disease; N18.6 End stage renal disease; Z99.2 Dependence on renal dialysis
CPT/HCPCS: 71045; 71250; 74176; 80048; 80076; 81003; 82553; 83518; 83880; 84484; 85025; 85610; 87040; 87086; 87186; 87400; 93005; 96374; 99284; J2405; J2543; J3370; U0002

== ENCOUNTER 2020-07-01 15:59 | Emergency (ER) | payer MEDICARE ==
[~2020-07-01] VITALS: Ht 167.6 cm; Wt 68.0 kg
[~2020-07-01 15:59] MED LIST changes: +CRESTOR10 MG; +ELIQUIS2.5 MG; +FINASTERIDE1 MG; +FLOMAX0.4 MG PO; +PANTOPRAZOLE SO40 MG PO; +PLAVIX75 MG PO
[2020-07-01] MEDS ORDERED: SODIUM CHLORIDE 0.9% 1000 ML BAG IV ONE ×2 (16:30)
[2020-07-01] MEDS ORDERED: CEFEPIME 2 GM/NS 0.9% 100 ML 100 ML IV STA (17:22)
[2020-07-01] MEDS ORDERED: DEXTROSE 50% SYRINGE 50 ML IV PRN (17:30)
[2020-07-01] MEDS ORDERED: CEFEPIME 1GM/NS 0.9% 50 ML 100 ML IV ONE (17:48)
[2020-07-01] MEDS ORDERED: SODIUM CHLORIDE 0.9% 250ML 250 ML ONE (17:53)
[2020-07-01] MEDS ORDERED: INSULIN REGULAR, HUMAN 100 UNIT/1 ML 3ML VIAL SQ SCH (21:00)
== END 2020-07-01 19:35 | disposition other institution (70) ==
LOC: FSED 16:10
DX: I63.9 Cerebral infarction, unspecified (principal); I69.920 Aphasia following unspecified cerebrovascular disease; I12.0 Hypertensive chronic kidney disease with stage 5 chronic kidney disease or end stage renal disease; E11.22 Type 2 diabetes mellitus with diabetic chronic kidney disease; N18.6 End stage renal disease; Z99.2 Dependence on renal dialysis; Z89.611 Acquired absence of right leg above knee; E78.5 Hyperlipidemia, unspecified
CPT/HCPCS: 51700; 70450; 71045; 80048; 80076; 81003; 85025; 87040; 87086; 93005; 99284; J0692; J7050; U0002

== ENCOUNTER → 2020-09-12 | Outpatient (CLI) | payer MEDICARE ==
[~2020-09-12] MED LIST changes: +CEFAZOLIN SOD 1 GM/NS 50ML 50 ML IV ONE; +DEXTROSE 50% SYRINGE 50 ML IV ONE; +FENTANYL CITRATE/PF 100MCG/2 ML INJ ONE; +IOPAMIDOL 300MG/ML 100 ML INFUS..BTL IV ONE; +LIDOCAINE HCL 1% LOCAL INJ 20 ML VIAL ONE; +MIDAZOLAM HCL 2 MG/2 ML VIAL ONE; +SODIUM CHLORIDE 0.9% 250ML 250 ML ONE; +SODIUM CHLORIDE 0.9% 500ML 500 ML ONE
[2020-09-12 08:29] LABS: HEMOGLOBIN 13.4 g/dL (14.0-18.0)
[2020-09-12 08:48] LABS: INR 0.89; PROTHROMBIN TIME 12.5 seconds (11.9-14.5)
[2020-09-12 08:49] LABS: PARTIAL THROMBOPLASTIN TIME 29.8 seconds (23.8-35.5)
== END ==
LOC: US 08:00
PROVIDERS: ATTEND Urology
DX: R33.9 Retention of urine, unspecified (principal)
CPT/HCPCS: 36415; 51102; 76942; 85014; 85049; 85610; 85730; J0690; J2001; J2250; J3010; J7040; J7050; J7799; Q9967; U0002

== ENCOUNTER 2021-01-11 04:53 | Emergency (ER) | payer MEDICARE ==
[~2021-01-11 04:53] MED LIST changes: -CEFAZOLIN SOD 1 GM/NS 50ML 50 ML IV ONE; -DEXTROSE 50% SYRINGE 50 ML IV ONE; -FENTANYL CITRATE/PF 100MCG/2 ML INJ ONE; -IOPAMIDOL 300MG/ML 100 ML INFUS..BTL IV ONE; -LIDOCAINE HCL 1% LOCAL INJ 20 ML VIAL ONE; -MIDAZOLAM HCL 2 MG/2 ML VIAL ONE; -SODIUM CHLORIDE 0.9% 250ML 250 ML ONE; -SODIUM CHLORIDE 0.9% 500ML 500 ML ONE
[2021-01-11] MEDS ORDERED: PIPERACILLIN/TAZOBACTAM 2.25 GM in SODIUM CHLORIDE 0.9% 50ML 50 ML IV STA (05:04)
[2021-01-11] MEDS ORDERED: ACETAMINOPHEN 325 MG TAB PO STA (05:04)
[2021-01-11] MEDS ORDERED: ACETAMINOPHEN 325 MG TAB ONE (06:18)
[2021-01-11] MEDS ORDERED: SODIUM CHLORIDE 0.9% 50ML 50 ML ONE (06:18)
[2021-01-11] MEDS ORDERED: PIPERACILLIN/TAZOBACTAM SOD 2.25 GM VIAL ONE (06:19)
[2021-01-11] MEDS ORDERED: AZITHROMYCIN250 MG PO (06:25)
[2021-01-11] MEDS ORDERED: CIPRO500 MG PO (06:25)
[2021-01-11 06:46] VITALS: BP 151/76
== END 2021-01-11 06:45 | disposition home or self-care (01) ==
LOC: FSED 05:02
DX: J02.0 Streptococcal pharyngitis (principal); B95.5 Unspecified streptococcus as the cause of diseases classified elsewhere; N39.0 Urinary tract infection, site not specified; I12.0 Hypertensive chronic kidney disease with stage 5 chronic kidney disease or end stage renal disease; E11.22 Type 2 diabetes mellitus with diabetic chronic kidney disease; N18.6 End stage renal disease; Z99.2 Dependence on renal dialysis; Z79.4 Long term (current) use of insulin; I48.91 Unspecified atrial fibrillation; Z79.01 Long term (current) use of anticoagulants; I69.320 Aphasia following cerebral infarction
CPT/HCPCS: 71045; 80048; 80076; 81003; 83518; 84484; 85025; 87400; 93005; 96365; 99284; J2543

== ENCOUNTER 2021-02-24 09:12 | Emergency (ER) | payer MEDICARE ==
[~2021-02-24] VITALS: Ht 167.6 cm; Wt 68.0 kg
[~2021-02-24 09:12] MED LIST changes: +AZITHROMYCIN250 MG PO
[2021-02-24 10:28] LABS: BASOPHILS % 0.1 % (0.0-1.0); HEMATOCRIT 46.9 % (38.2-49.6); HEMOGLOBIN 14.8 g/dL (14.0-18.0); LYMPHOCYTES # (AUTO) 0.7 (1.0-3.2); LYMPHOCYTES % 5.3 % (18.0-39.1); MEAN CORPUSCULAR HEMOGLOBIN 26.9 pg (28-32); MEAN CORPUSCULAR HGB CONC 31.6 g/dL (31-35); MEAN CORPUSCULAR VOLUME 85.3 fL (81-99); MONOCYTES # (AUTO) 0.8 (0.2-0.8); MONOCYTES % 6.5 % (4.4-11.3); NEUTROPHILS # (AUTO) 11.1 (2.1-6.9); NEUTROPHILS % 87.4 % (38.7-80.0); PLATELET COUNT 291 x10e3/uL (140-360); RED CELL DISTRIBUTION WIDTH 17.2 % (11.7-14.4)
[2021-02-24 10:44] LABS: INR 1.07; PROTHROMBIN TIME 14.1 seconds (11.9-14.5)
[2021-02-24 10:46] LABS: CLARITY,URINE CLOUDY (CLEAR); COLOR,URINE YELLOW (YELLOW); LEUKOCYTE ESTERASE ,URINE 2+ (NEGATIVE); NITRITE,URINE NEGATIVE (NEGATIVE); PROTEIN,URINE DIPSTICK >=300 (NEGATIVE)
[2021-02-24 10:47] LABS: KETONES,URINE 1+ (NEGATIVE); URINE UROBILINOGEN 0.2 mg/dL (0.2 - 1)
[2021-02-24 10:53] LABS: BACTERIA,URINE MANY /HPF; EPITHELIAL CELLS,URINE FEW /LPF; RBC,URINE 21-50 /HPF (0-5); WBC,URINE (MAN) >50 /HPF (0-5)
[2021-02-24 11:11] LABS: ALBUMIN 2.1 g/dL (3.5-5.0); ALBUMIN/GLOBULIN RATIO 0.4 (0.8-2.0); ANION GAP 24.8 mmol/L (8-16); CALCIUM 9.1 mg/dL (8.4-10.2); CREATININE, SERUM 1.48 mg/dL (0.72-1.25); POTASSIUM 3.8 mmol/L (3.5-5.1)
[2021-02-24] MEDS ORDERED: SODIUM CHLORIDE 0.9% 1000ML 1,000 ML IV SCH (12:00)
[2021-02-24] MEDS ORDERED: IOPAMIDOL 370 MG/ML 200 ML INFUS..BTL INJ ONE (12:11)
[2021-02-24] MEDS ORDERED: SODIUM CHLORIDE 0.9% 50ML 50 ML ONE (12:11)
[2021-02-24] MEDS ORDERED: CEFTRIAXONE 1 GM VIAL IV ONE (12:30)
[2021-02-24] MEDS ORDERED: CEFTRIAXONE 1 GM in SODIUM CHLORIDE 0.9% 50ML 50 ML IV ONE (12:45)
== END 2021-02-24 18:33 | disposition other institution (70) ==
LOC: ER 10:31
DX: R11.10 Vomiting, unspecified (principal); I31.3 Pericardial effusion (noninflammatory); J90 Pleural effusion, not elsewhere classified; N12 Tubulo-interstitial nephritis, not specified as acute or chronic; R94.31 Abnormal electrocardiogram [ECG] [EKG]; Z94.0 Kidney transplant status; Z89.611 Acquired absence of right leg above knee; I10 Essential (primary) hypertension; E11.9 Type 2 diabetes mellitus without complications; I25.10 Atherosclerotic heart disease of native coronary artery without angina pectoris; I48.91 Unspecified atrial fibrillation; Z86.73 Personal history of transient ischemic attack (TIA), and cerebral infarction without residual deficits; Z20.822 Contact with and (suspected) exposure to COVID-19
CPT/HCPCS: 36415; 71260; 74177; 80053; 81001; 82948; 83690; 84484; 85025; 85610; 87086; 87186; 99285; J0696; Q9967; U0002